=== PATIENT | female | born 1950 | race Caucasian/White ===

== ENCOUNTER 2023-01-15 07:07 | Day surgery (SDC) | payer MEDICARE, SELFPAY ==
--- NOTE | 2023-01-14 09:09 | HO.ANESPROP2 ---
HPI - Anesthesia Eval Consult details Narrative: 72yo F for Colonoscopy [facility] Past Medical History Medical History (Updated 01/13/23 @ 07:10 by Joanne Dalton, RN) Irregular heart beat Kidney stone Hyperlipidemia Cancer of breast Surgical History Surgical History (Updated 01/13/23 @ 07:11 by Joanne Dalton, RN) H/O colonoscopy History of lumpectomy of left breast Hx of thumb surgery S/P JUSTIN (total abdominal hysterectomy) History of surgery on arm Meds Allergies Allergy/AdvReac Type Severity Reaction Status Date / Time sulfamethoxazole Allergy Intermediate HIVES Unverified 12/09/19 16:07 [From Bactrim] trimethoprim [From Bactrim] Allergy Intermediate HIVES Unverified 12/09/19 16:07 amoxicillin [Amoxicillin] Allergy Mild RASH Unverified 12/09/19 16:07 Sulfa (Sulfonamide Allergy Unknown Verified 10/08/19 00:00 Antibiotics) Home Medications Medication Instructions Recorded Confirmed Last Taken Type lovastatin 20 mg tablet 20 mg PO BEDTIME 01/13/23 01/13/23 Unknown History metoprolol succinate 25 mg 25 mg PO DAILY 01/13/23 01/13/23 Unknown History tablet,extended release 24 hr Exam Exam Date and Time: January 14, 2023 0909 Assessment and Plan Assessment Anesthesia Assessment: Chart Reviewed
[2023-01-15 05:56] VITALS: BMI 25.2
[2023-01-15] MEDS: Lactated Ringers 1,000 ML 100 ML IVCONT (07:24)
[2023-01-15 07:32] VITALS: BP 151/74; PULSE 86; RESP 18; TEMP 36.6; O2SAT 100
--- NOTE | 2023-01-15 08:01 | HO.ANESPROP2 ---
[facility] Past Medical History Medical History Irregular heart beat Kidney stone Hyperlipidemia Cancer of breast Family History Family history of problems with anesthesia: No Surgical History Surgical History H/O colonoscopy History of lumpectomy of left breast Hx of thumb surgery S/P JUSTIN (total abdominal hysterectomy) History of surgery on arm History of Problems with Anesthesia: No Social History Social History Patient Tobacco Use Status: Current everyday Tobacco user Smoked in Last 30 Days: Yes Patient Interested in Nicotine Replacement: No Are you DNR?: No Advance Directives: No Advance Directives Information Provided: Yes Nutrition Risks: No Nutritional Risk Meds Allergies Allergy/AdvReac Type Severity Reaction Status Date / Time sulfamethoxazole Allergy Intermediate HIVES Verified 01/15/23 07:20 [From Bactrim] trimethoprim [From Bactrim] Allergy Intermediate HIVES Verified 01/15/23 07:20 amoxicillin [Amoxicillin] Allergy Mild RASH Verified 01/15/23 07:20 Sulfa (Sulfonamide Allergy Unknown Hives Verified 01/15/23 07:20 Antibiotics) Active Medications: Current Medications Lactated Ringer's (Lr) 1,000 mls @ 100 mls/hr IVCONT .Q10H JORGE Last Admin: 01/15/23 07:24 Dose: 100 mls/hr Ondansetron HCl (Ondansetron Hcl 4 Mg/2 Ml Vial) 4 mg IVPUSH ONCE PRN PRN Reason: Nausea and Vomiting Sodium Biphosphate/Sodium Phosphate (Sodium Phosphate,[place]-Dibasic 133 Ml Enema) 133 ml PA ONCE PRN PRN Reason: Poor Colonoscopy Prep Results Home Medications Medication Instructions Recorded Confirmed Last Taken Type lovastatin 20 mg tablet 20 mg PO BEDTIME 01/13/23 01/13/23 Unknown History metoprolol succinate 25 mg 25 mg PO DAILY 01/13/23 01/13/23 01/15/23 History tablet,extended release 24 hr Exam Exam Date and Time: January 15, 2023 08 Height,Weight and Vital Signs: Height 5 ft 4.5 in Weight 67.585 kg Last Vital Signs Temp 97.9 F 01/15/23 07:32 Pulse 86 01/15/23 07:32 Resp 18 01/15/23 07:32 BP 151/74 H 01/15/23 07:32 Pulse Ox 100 01/15/23 07:32 O2 Del Method Room Air 01/15/23 07:32 Airway Mallampati Class: II TM Dist: >3cm Neck ROM: Full Denture: Upper Heart: rrr Lungs: clear Assessment and Plan Final Anesthetic Review Family History of Problems with Anesthesia: No History of Problems with Anesthesia: No NPO: Yes ASA Class: III Final Preanesthetic Review: No Changes in Pt Med Stat, Meds/Allgs Chart Reviewed, Consent Obtained/Reviewed and Anes Risks/Benef Reviewed Patient Risk: Intermediate Procedure Risk: Low Anesthetic Plan Anesthetic Plan: MAC: Disposition: Standard PACU
[2023-01-15 08:58] VITALS: BP 135/53; PULSE 66; RESP 20; TEMP 36.1; O2SAT 98
--- NOTE | 2023-01-15 08:58 | P.BOP_ITS ---
Brief Operative Note Date of Service: 01/15/23 Pre-op diagnosis: Screening Post-op diagnosis: other (Colon polyps) Procedure: Colonoscopy to the cecum and TI with biopsy and removal of polyps Surgeon: Cesar Gould MD Anesthesia: MAC Was an Custom Protection Officer used for this Procedure?: No Estimated blood loss (mL): 2.0 Pathology: other (A. Ascending colon polyp B. Transverse colon polyp C. Polyp at 30cm) Condition: stable Disposition: PACU
--- NOTE | 2023-01-15 09:08 | OP_ITS ---
DATE OF SERVICE: 01/15/2023 SURGEON: Cesar Gould MD INDICATIONS: The patient presents for evaluation of colorectal cancer screening. Full consent obtained from her for this, including risks of bleeding and perforation. PREOPERATIVE DIAGNOSIS: Colorectal cancer screening. POSTOPERATIVE DIAGNOSIS: PROCEDURE PERFORMED: Colonoscopy to the cecum and terminal ileum with biopsy and removal of polyps. ESTIMATED BLOOD LOSS: COMPLICATIONS: ANESTHESIA: Monitored anesthesia care. ASSISTANTS: SPECIMENS: POSTOPERATIVE DIAGNOSES: Colorectal cancer screening, small colon polyps, diverticulosis, and internal hemorrhoids. DESCRIPTION OF PROCEDURE: The patient was placed in the left lateral decubitus position. The digital rectal exam revealed no abnormalities. The Olympus video pediatric colonoscope was entered into the rectum and advanced easily to the cecum. Once in the cecum, I did identify normal-appearing cecal pouch with appendiceal orifice and a normal-appearing ileocecal valve. The terminal ileum was cannulated and appeared normal. The scope was withdrawn back to the colon. The entire cecum and ileocecal valve appeared normal. The scope was slowly withdrawn assessing all mucosal surfaces carefully. Preparation was excellent. In the ascending colon, transverse colon, and at 30 cm were flat, less than 5 mm polyps, which were all biopsied and removed with the cold biopsy forceps. I did not visualize any sign of other polyps, colitis, nor angiodysplasia. There was a mild amount of sigmoid diverticulosis. In the rectum, scope was retroflexed visualizing internal hemorrhoids, but no other pathology. The rectal mucosa appeared normal. The scope was straightened and withdrawn from the patient. She tolerated the procedure well and was returned to the recovery area in stable condition. IMPRESSION: 1. Colon polyps. 2. Diverticulosis. 3. Internal hemorrhoids. PLAN: The results of the biopsy will be checked. If these are tubular adenoma, I would recommend a followup colonoscopy in 5 years. If they happen to be hyperplastic, then she would not need any further screening colonoscopies due to her age. She will see me on a p.r.n. basis otherwise. MD ELISEO Reardon/GARY / [phone]
[2023-01-15 09:13] VITALS: BP 159/68; PULSE 59; RESP 20; TEMP 36.1; O2SAT 99
== END 2023-01-15 09:42 | disposition home or self-care (01) ==
PROVIDERS: PCP Nurse Practitioner Family; Visit Provider Internal Medicine
PROC: 0DJD8ZZ Inspection of Lower Intestinal Tract, Via Natural or Artificial Opening Endoscopic (ICD-10-PCS; CPT 45378; principal; 2023-01-15 08:20)
DX: Z12.11 Encounter for screening for malignant neoplasm of colon (principal); D12.2 Benign neoplasm of ascending colon; D12.3 Benign neoplasm of transverse colon; D12.5 Benign neoplasm of sigmoid colon; K57.30 Diverticulosis of large intestine without perforation or abscess without bleeding; K64.8 Other hemorrhoids; E78.5 Hyperlipidemia, unspecified; F17.210 Nicotine dependence, cigarettes, uncomplicated; Z83.719 Family history of colon polyps, unspecified; Z87.442 Personal history of urinary calculi; Z85.3 Personal history of malignant neoplasm of breast
CPT/HCPCS: 45380; 88305

== ENCOUNTER 2023-08-09 13:30 | Emergency (ER) | payer MEDICARE, SELFPAY ==
--- NOTE | ~2023-08-09 | XR_ITS ---
EXAMINATION: XR CHEST CLINICAL INFORMATION: Chest pain. COMPARISON: Chest radiograph dated 10/14/2007. TECHNIQUE: 2 views of the chest were obtained. FINDINGS: The lungs are clear. The cardiomediastinal silhouette is normal in size. There is no pleural effusion or pneumothorax. No acute osseous abnormality. XR/XR chest 2V IMPRESSION: No acute cardiopulmonary findings.
--- NOTE | 2023-08-09 13:32 | ECG_ITS ---
Test Reason : CHEST PAIN Blood Pressure : / mmHG Vent. Rate : 097 BPM Atrial Rate : 099 BPM P-R Int : 140 ms QRS Dur : 076 ms QT Int : 340 ms P-R-T Axes : 071 014 039 degrees QTc Int : 431 ms Normal sinus rhythm Nonspecific ST and T wave abnormality Abnormal ECG When compared with ECG of 12-MAY-2008 16:44, No significant change was found Referred By: Xiomara Aguilera Electronically Signed By:LEONARD VASQUEZ MD
[2023-08-09 13:46] VITALS: BP 155/63; PULSE 99; RESP 19; TEMP 36.6; O2SAT 98; BMI 25.0
--- NOTE | 2023-08-09 13:47 | ED_ITS ---
HPI - Chest Pain General Chief Complaint: Chest Pain Stated Complaint: chest pain Time Seen by Provider: 08/09/23 20:50 Source: patient Mode of arrival: ambulatory Limitations: no limitations History of Present Illness HPI narrative: Patient's history of hyperlipidemia and hypertension been having mid chest pain for last 3 weeks feels heavy lasting for 20-30 minutes with sometimes cold sweats and nausea no radiation of the pain no shortness of breath last chest pain was today at afternoon also complaining of headache chest pain gets worse on exertion is happening more often now no cardiac workup done in the past patient had troponin and EKG done prior to my evaluation 2 sets of troponin negative for delta change EKG without any ischemic change Related Data Home Medications ?Medication ?Instructions ?Recorded ?Confirmed lovastatin 20 mg tablet 20 mg PO BEDTIME 01/13/23 01/13/23 metoprolol succinate 25 mg 25 mg PO DAILY 01/13/23 01/13/23 tablet,extended release 24 hr Previous Rx's ?Medication ?Instructions ?Recorded aspirin 81 mg tablet,delayed 81 mg PO DAILY #30 tabs 08/09/23 release (Ecotrin Low Strength) Allergies Allergy/AdvReac Type Severity Reaction Status Date / Time sulfamethoxazole Allergy Intermediate HIVES Verified 08/09/23 13:47 [From Bactrim] trimethoprim [From Bactrim] Allergy Intermediate HIVES Verified 08/09/23 13:47 amoxicillin [Amoxicillin] Allergy Mild RASH Verified 08/09/23 13:47 Sulfa (Sulfonamide Allergy Unknown Hives Verified 08/09/23 13:47 Antibiotics) Review of Systems 2 Review of Systems: Yes all other systems are reviewed and are negative PMFSH Past Medical History Medical History Irregular heart beat Kidney stone Hyperlipidemia Cancer of breast Surgical History H/O colonoscopy History of lumpectomy of left breast Hx of thumb surgery S/P JUSTIN (total abdominal hysterectomy) History of surgery on arm Social History Social History Patient Tobacco Use Status: Current everyday Tobacco user Advance Directives: No Advance Directives Information Provided: No Physical Exam 2 Vital Signs: Vital Signs: Last Vital Signs Temp 98.3 F 08/09/23 23:23 Pulse 74 08/09/23 23:23 Resp 14 08/09/23 23:23 BP 130/44 L 08/09/23 23:23 Pulse Ox 96 08/09/23 23:23 O2 Del Method Room Air 08/09/23 23:23 BMI result Body Mass Index 25.0 Appearance: Alert. Oriented X3. No acute distress. Eyes: No pallor or icterus ENT: Pharynx normal. Oral Mucosa moist Neck: Normal inspection. Neck supple. CVS: Normal heart rate and rhythm. Pulses normal. Respiratory: No respiratory distress. Equal air entry bilateral, no wheezing/rales/rhonchi Abdomen: Soft and nontender. Bowel sounds are present, no mass palpable, no CVA tenderness Skin: Skin warm and dry. Normal skin color. Normal skin turgor. Extremities: No lower extremity edema. No calf tenderness Neuro: Oriented X 3. Course Course Course Narrative: This is a rapid medical exam. Deferred additional HPI, ROS, PE to primary provider. 73 yo female with history of HTN, HLD here with exertional CP x several weeks. Will need labs, EKG, CXR. VINH Zafar APRN Medications Administered Discontinued Medications Generic Name Dose Route Start Last Admin Trade Name Freq PRN Reason Stop Dose Admin Aspirin 162 mg 08/09/23 22:37 08/09/23 23:11 Aspirin Enteric Coated 81 Mg Tablet.Dr DEL CID 08/09/23 22:38 162 mg ONCE ONE Administration Medical Decision Making Medical Decision Making [facility] Narrative: Patient with chest pain for 3 weeks with 3 sets of cardiac enzymes negative without any ischemic changes in the EKG no hypoxia nose signs of PE likely patient had nonischemic cardiac pain advised patient to follow up with PCP/tennis racket repairer for further workup including stress test and echo Differential Diagnosis Differential Diagnoses: The differential diagnosis associated with the presentation includes ACS/non-STEMI/musculoskeletal Admission/Observation Consideration of admission/observation: Escalation of care including admission/observation considered Lab Data [facility] Lab Attestation statement: I reviewed the patient's lab results. 08/09/23 13:56 08/09/23 13:55 Labs: Lab Results 08/09/23 08/09/23 08/09/23 Range/Units 13:55 13:56 16:16 WBC 8.1 (4.8-10.8) X10*3/uL RBC 3.96 L (4.20-5.50) X10*6/uL Hgb 12.0 (12.0-16.0) g/dl Hct 35.8 L (37.0-47.0) % MCV 90.4 (80.0-98.0) fL MCH 30.3 (27.0-33.0) pg MCHC 33.5 (31.0-35.0) g/dl RDW 13.0 (11.0-16.0) % Plt Count 303 (160-400) X10*3/uL MPV 9.4 (9.4-12.3) fL Immature Gran % (Auto) 1.7 H (0.0-0.4) % Neut % (Auto) 71.5 (45-73) % Lymph % (Auto) 16.0 L (20-40) % [place] % (Auto) 9.5 (2-11) % Eos % (Auto) 0.9 (0-4) % Baso % (Auto) 0.4 (0-2) % Lymph # (Auto) 1.3 (1.2-4.9) X10*3/uL [place] # (Auto) 0.8 (0.1-1.2) X10*3/uL Eos # (Auto) 0.1 (0.0-0.4) X10*3/uL Baso # (Auto) 0.0 (0.0-0.2) X10*3/uL Abs Immat Gran (auto) 0.14 H (0.00-0.03) X10*3/uL Absolute Neuts (auto) 5.8 (2.0-8.3) x10*3/uL Absolute Nucleated RBC 0.000 (0.0-0.012) X10*3/uL Nucleated RBC % (auto) 0.0 (0.0-0.2) /100WBC Sodium 137 (135-145) mmol/L Potassium 4.3 (3.3-5.1) mmol/L Chloride 98 (96-108) mmol/L Carbon Dioxide 28 (22-29) mmol/L Anion Gap 15 (12-20) BUN 20 H (9-16) mg/dL Creatinine 1.01 (0.5-1.4) mg/dL Estim Creat Clear Calc 45.9 Estimated GFR 54 Random Glucose 206 H (60-115) mg/dL Calcium 10.6 H (8.4-10.2) mg/dL Total Bilirubin 0.3 (0.0-1.0) mg/dL Direct Bilirubin 0.1 (0.0-0.5) mg/dL AST 38 H (5-31) U/L ALT 22 (0-31) U/L Alkaline Phosphatase 142 H (39-117) U/L Troponin I High Sens 3.2 4.3 (<3.5-17.0) ng/L Total Protein 7.3 (6.5-8.0) g/dL Albumin 3.9 (3.5-5.0) g/dL 08/09/23 Range/Units 21:57 WBC (4.8-10.8) X10*3/uL RBC (4.20-5.50) X10*6/uL Hgb (12.0-16.0) g/dl Hct (37.0-47.0) % MCV (80.0-98.0) fL MCH (27.0-33.0) pg MCHC (31.0-35.0) g/dl RDW (11.0-16.0) % Plt Count (160-400) X10*3/uL MPV (9.4-12.3) fL Immature Gran % (Auto) (0.0-0.4) % Neut % (Auto) (45-73) % Lymph % (Auto) (20-40) % [place] % (Auto) (2-11) % Eos % (Auto) (0-4) % Baso % (Auto) (0-2) % Lymph # (Auto) (1.2-4.9) X10*3/uL [place] # (Auto) (0.1-1.2) X10*3/uL Eos # (Auto) (0.0-0.4) X10*3/uL Baso # (Auto) (0.0-0.2) X10*3/uL Abs Immat Gran (auto) (0.00-0.03) X10*3/uL Absolute Neuts (auto) (2.0-8.3) x10*3/uL Absolute Nucleated RBC (0.0-0.012) X10*3/uL Nucleated RBC % (auto) (0.0-0.2) /100WBC Sodium (135-145) mmol/L Potassium (3.3-5.1) mmol/L Chloride (96-108) mmol/L Carbon Dioxide (22-29) mmol/L Anion Gap (12-20) BUN (9-16) mg/dL Creatinine (0.5-1.4) mg/dL Estim Creat Clear Calc Estimated GFR Random Glucose (60-115) mg/dL Calcium (8.4-10.2) mg/dL Total Bilirubin (0.0-1.0) mg/dL Direct Bilirubin (0.0-0.5) mg/dL AST (5-31) U/L ALT (0-31) U/L Alkaline Phosphatase (39-117) U/L Troponin I High Sens 3.0 (<3.5-17.0) ng/L Total Protein (6.5-8.0) g/dL Albumin (3.5-5.0) g/dL Independent Interpretation I performed an independent interpretation of an: EKG Interpretation: Normal sinus rhythm heart rate 97 normal interval normal axis no acute ST-T changes no change from previous EKG in 2008 Discharge Plan Discharge Clinical Impression: Chest pain Patient Disposition: Home, Self-Care Instructions: Chest Pain (ED) Additional Instructions: Take baby aspirin daily Follow up with PCP/tennis racket repairer for further workup including stress test Report to the ER if worsening of the chest pain Prescriptions: New aspirin [Ecotrin Low Strength] 81 mg tablet,delayed release (DR/EC) 81 mg PO DAILY Qty: 30 0RF No Action metoprolol succinate 25 mg tablet extended release 24 hr 25 mg PO DAILY lovastatin 20 mg tablet 20 mg PO BEDTIME Interventions: ED Discharge Assessment Last Done: 08/09/23 23:23 Discharge Date/Time: 08/09/23 23:24 Print Language: German
[2023-08-09 14:02] LABS: Basophils Percent Auto 0.4 % (0-2); Eosinophils Absolute Auto 0.1 X10*3/uL (0.0-0.4); Eosinophils Percent Auto 0.9 % (0-4); Hematocrit 35.8 % (37.0-47.0); Imm Gran Abs Auto 0.14 X10*3/uL (0.00-0.03); Imm Gran Pct Auto 1.7 % (0.0-0.4); Lymphocytes Absolute Auto 1.3 X10*3/uL (1.2-4.9); MANUAL DIFF FLAG NO; Mean Corpuscular HGB Conc 33.5 g/dl (31.0-35.0); Mean Corpuscular Hemoglobin 30.3 pg (27.0-33.0); Mean Corpuscular Volume 90.4 fL (80.0-98.0); Mean Platelet Volume 9.4 fL (9.4-12.3); Monocytes Absolute Auto 0.8 X10*3/uL (0.1-1.2); Monocytes Percent Auto 9.5 % (2-11); Neutrophils Absolute Auto 5.8 x10*3/uL (2.0-8.3); Neutrophils Percent Auto 71.5 % (45-73); Platelet Count 303 X10*3/uL (160-400); Red Blood Count 3.96 X10*6/uL (4.20-5.50); White Blood Count 8.1 X10*3/uL (4.8-10.8)
[2023-08-09 14:26] LABS: Troponin-I High Sensitivity 3.2 ng/L (<3.5-17.0)
[2023-08-09 14:27] LABS: Alanine Aminotransferase 22 U/L (0-31); Albumin Level 3.9 g/dL (3.5-5.0); Alkaline Phosphatase 142 U/L (39-117); Anion Gap 15 (12-20); Aspartate Amino Transferase 38 U/L (5-31); Bilirubin Direct 0.1 mg/dL (0.0-0.5); Bilirubin Total 0.3 mg/dL (0.0-1.0); Blood Urea Nitrogen 20 mg/dL (9-16); Calcium 10.6 mg/dL (8.4-10.2); Carbon Dioxide 28 mmol/L (22-29); Chloride 98 mmol/L (96-108); Creatinine Clr Calc Pharmacy 45.9; Estimated Glomerular Filt Rate 54; Glucose Random 206 mg/dL (60-115); Potassium 4.3 mmol/L (3.3-5.1); Sodium 137 mmol/L (135-145); Total Protein 7.3 g/dL (6.5-8.0)
[2023-08-09 16:43] LABS: Troponin-I High Sensitivity 4.3 ng/L (<3.5-17.0)
[2023-08-09 18:34] VITALS: BP 140/53; PULSE 85; RESP 20; TEMP 37.2; O2SAT 96
[2023-08-09 20:38] VITALS: BP 157/61; PULSE 76; RESP 14; TEMP 36.7; O2SAT 98
--- NOTE | 2023-08-09 21:46 | ECG_ITS ---
Test Reason : cp Blood Pressure : / mmHG Vent. Rate : 075 BPM Atrial Rate : 075 BPM P-R Int : 134 ms QRS Dur : 074 ms QT Int : 374 ms P-R-T Axes : -04 009 -02 degrees QTc Int : 417 ms Sinus rhythm with Premature atrial complexes Nonspecific ST abnormality Abnormal ECG When compared with ECG of 09-AUG-2023 13:37, Premature atrial complexes are now Present Inverted T waves have replaced nonspecific T wave abnormality in Inferior leads Referred By: Arturo Ritchie Electronically Signed By:LEONARD VASQUEZ MD
[2023-08-09 22:45] VITALS: BP 130/49; PULSE 74; RESP 14; TEMP 36.8; O2SAT 96
[2023-08-09] MEDS: Aspirin Enteric Coated 81 MG TABLET.DR 162 MG PO (23:11)
[2023-08-09 23:23] VITALS: BP 130/44; PULSE 74; RESP 14; TEMP 36.8; O2SAT 96
== END 2023-08-09 23:24 | disposition home or self-care (01) ==
PROVIDERS: Nurse Practitioner Family; Emergency Provider Internal Medicine; PCP Internal Medicine
DX: R07.9 Chest pain, unspecified (principal); R11.0 Nausea; R61 Generalized hyperhidrosis; I49.9 Cardiac arrhythmia, unspecified
CPT/HCPCS: 36415; 71046; 80048; 80076; 84484; 85025; 93005; 99283; 99284

== ENCOUNTER → 2023-08-09 13:32 | Outpatient (BNV) | payer MEDICARE, SELFPAY | PROVIDERS: Emergency Provider Internal Medicine; PCP Internal Medicine; Visit Provider Internal Medicine Cardiovascular Disease | DX: R94.31 Abnormal electrocardiogram [ECG] [EKG] (principal); I49.3 Ventricular premature depolarization | CPT/HCPCS: 93010 ==

== ENCOUNTER 2023-08-19 09:11 | Outpatient (AMB) | payer MEDICARE, SELFPAY ==
[2023-08-19 09:32] VITALS: BP 140/64; BMI 24.7
--- NOTE | 2023-08-19 09:32 | A.OFFPC_ITS ---
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: No Accompanied by: Self / Same As Patient Allergies sulfamethoxazole [From Bactrim] Allergy (Intermediate, Verified 08/19/23 09:47) HIVES trimethoprim [From Bactrim] Allergy (Intermediate, Verified 08/19/23 09:47) HIVES amoxicillin [Amoxicillin] Allergy (Mild, Verified 08/19/23 09:47) RASH Sulfa (Sulfonamide Antibiotics) Allergy (Unknown, Verified 08/19/23 09:47) Hives Medication List - Last Reconciled 08/19/23 by Li Whitehead MD aspirin (Ecotrin Low Strength) 81 mg PO DAILY lovastatin 20 mg PO BEDTIME metoprolol succinate ER 50 mg PO DAILY Tobacco use date assessed: 08/19/23 Fall risk assessment: No Falls in past year Last assessed Fall Risk: 08/19/23 Dental Screening Dental Screen Date: 08/19/23 Did you have a dental visit in the last 12 months?: Yes Did you have a dental problem in the last 6 months where you did not have access to dental care?: No Was dental information given to patient?: Patient has dentist HPI HPI Comments History of Present Illness Details This is a 73-year-old female with history of breast cancer and newly diagnosed diabetes mellitus type 2 that comes for her physical exam as a new patient. Breast cancer was diagnosed in 1997 and was treated with lumpectomy and radiotherapy completing 5 years of tamoxifen. Last mammogram was 2023 in [place] and was negative. DEXA scan was done last year and as per patient was normal. She has occasional chest pain located in the middle of the chest and left side of the chest associated with some shortness of breath. Went to ER 08/09/2023 for this matter and had an EKG and chest x-ray which did not show any significant abnormality. Random blood glucose was 206 and she denies any polyuria or unintentional weight loss but does have polydipsia. Her A1c today was 6.9% which rules in the diagnosis of diabetes. Patient is aware that has to check her fasting blood glucose daily. Aware that I will start metformin and can cause abdominal discomfort and diarrhea. She had an eye exam in June 2023 which was normal. Colonoscopy done 2022 showing tubular adenoma and next colonoscopy will be 2027. Had a muscle cramps recently in right leg and I order magnesium. She has a systolic murmur and I wanted to order an echocardiogram but she preferred to discuss it with Cardiology. She also complains of persistent headaches that started few weeks ago with no neurological deficit and would like to see Neurology. [facility] Medical History (Updated 08/19/23 @ 10:19 by Li Whitehead MD) Irregular heart beat Kidney stone Hyperlipidemia Cancer of breast Surgical History H/O colonoscopy History of lumpectomy of left breast Hx of thumb surgery S/P JUSTIN (total abdominal hysterectomy) History of surgery on arm Family History (Updated 08/19/23 @ 09:53 by Li Whitehead MD) Mother Tuberculosis Brother Myocardial infarction, Onset Age: 55 Skin cancer Father Skin cancer Social History Housing: House Alcohol intake: never Patient Tobacco Use Status: Current everyday Tobacco user Tobacco use type: Cigarette Cigarettes Per Day: 3 e-Cigarette/Vaping Use: Never Used Second Hand Smoke Exposure: No service: No Current occupational status: retired Cognitive needs: No Hearing needs: No Vision needs: Yes Questionnaire PHQ-9 Over the last 2 weeks, how often have you been bothered by any of the following problems? 1. Little interest or pleasure in doing things: not at all 2. Feeling down, depressed, or hopeless: not at all 3. Trouble falling or staying asleep, or sleeping too much: not at all 4. Feeling tired or having little energy: not at all 5. Poor appetite or overeating: not at all 6. Feeling bad about yourself - or that you are a failure or have let yourself or your family down: not at all 7. Trouble concentrating on things, such as reading the newspaper or watching television: not at all 8. Moving or speaking so slowly that other people could have noticed. Or the opposite - being so fidgety or restless that you have been moving around a lot more than usual: not at all 9. Thoughts that you would be better off or of hurting yourself in some way: not at all Total score: 0 Depression Screening Interpretation: Negative Depression Screening Done: Yes 30164 - PHQ-9 Billing: Yes Source: Developed by Drs. Cesar Cr, Farrah Manuel, Lj Carlton and colleagues, with an educational ashley from [employer]. Thrive Questionnaire Date Thrive assessed: 08/19/23 I am a: Patient What is your living situation today?: I have a steady place to live Within the past 12 months, did the food you bought not last and you didn't have the money to get more?: Never true Within the past 12 months, did you worry whether your food would run out before you got money to buy more?: Never true Do you have trouble paying for medicines?: No Do you have trouble getting transportation to medical appointments?: No Do you have trouble paying your heating and electricity bill?: No Do you have trouble taking care of your child, family member or friend?: No Do you have trouble with day-to-day activities such as bathing, preparing meals, shopping, managing finances, etc.?: No Are you currently unemployed and looking for a job?: No Are you interested in more education?: No Please select the resources that you would like help with: None Currently or been in a relationship where the following occur: no concerns reported THRIVE Score: 0 AUDIT C Alcohol Use Questionnaire (AUDIT-C) 1. How often do you have a drink containing alcohol?: Never Total Score: 0 CHUCK-7 AMB Questionnaire CHUCK-7 Date CHUCK - 7 assessed: 08/19/23 Feeling nervous, anxious, or on edge: 0 = Not at all Not being able to stop or control worryin = Not at all Worrying too much about different things: 0 = Not at all Trouble relaxin = Not at all Being so restless that it is hard to sit still: 0 = Not at all Becoming easily annoyed or irritable: 0 = Not at all Feeling afraid as if something awful might happen: 0 = Not at all Total CHUCK-7 score (0-4 normal; 5-9 mild; 10-14 moderate; 15-21 severe): 0 Source: Developed by Drs. Cesar Cr, Farrah Manuel, Lj Carlton and colleagues, with an educational ashley from [employer]. CHUCK-7 Assessment Billing CHUCK-7 Assessment Tool: CHUCK-7 Assessment 82169 Review of Systems Const All systems reviewed & are unremarkable except as noted in HPI and below Reports headache(s) Eyes Reports no additional complaints, Denies change in vision and Denies other visual disturbances ENT Reports headache(s) Card Reports chest pain at rest, Denies chest pain with activity, Denies edema, Denies irregular heart rhythm, Denies claudication, Reports dyspnea, Denies dyspnea on exertion, Denies orthopnea, Denies paroxysmal nocturnal dyspnea and Denies slow heart rate Resp Denies cough, Reports dyspnea and Denies dyspnea on exertion GI Denies abdominal pain, Denies change in bowel habits, Denies excessive flatus, Denies nausea and Denies vomiting Denies urinary incontinence, Denies urinary hesitancy and Denies urinary urgency Musc Denies abnormal gait, Denies atrophy, Denies deformity and Denies limited range of motion Neuro Denies abnormal gait, Reports headache(s) and Denies lack of coordination Endo Reports polydipsia Physical exam (Primary Care) Vital Signs: Last Vital Signs BP 140/64 H 08/19/23 09:32 BMI result Body Mass Index 24.7 Tobacco/Smoking Status: Tobacco use Status Tobacco use date assessed 08/19/23 08/19/23 09:38 Patient Tobacco Use Status Current everyday Tobacco 08/19/23 09:36 Tobacco use type Cigarette 08/19/23 09:38 e-Cigarette/Vaping Use Never Used 08/19/23 09:38 Are you ready to quit: Yes Tobacco cessation counseling provided: Yes Items discussed: QuitWorks Relapse Prevention: discussed the importance of a supportive environment, discussed extending NRT, discussed negative mood or depression after quitting, weight gain after smoking is common and discussed dietary, exercise and/or lifestyle changes Number of minutes spent counselin CPT code: 38274 - 4-10 Minutes PHQ-9: PHQ-9 Score PHQ-9: Total score 0 08/19/23 09:56 Depression Screening Interpretation: Negative Thrive Assessment: Date of Thrive Assessment Date Thrive assessed 08/19/23 08/19/23 09:38 Currently or been in a relationship where the following occur: no concerns reported Const General: cooperative and healthy appearing Orientation/consciousness: patient oriented x3 Limitations: no limitations HENMT Head: Yes normal to inspection, Yes normocephalic and Yes atraumatic Ears: external ears normal Eyes General: appearance normal, both eyes and all related structures Eyelids: Yes eyelids normal Conjunctivae: conjunctivae normal Neck Neck: Yes normal visual inspection and Yes supple Resp Effort & Inspection: normal respiratory effort Auscultation: clear to auscultation bilaterally Cardio Jugular venous distension: no JVD Rate: regular rate Rhythm: regular rhythm Heart sounds: Murmur heart sound present GI Inspection: Yes normal to inspection Palpation (GI): Soft to palpation and nontender Auscultation: normal bowel sounds Skin General skin exam: no rashes or lesions noted Neuro General: patient oriented x3 and no focal motor deficits Extrem General: Yes full ROM Psych Appearance: grossly normal Results AMB Hemoglobin A1c AMB Hemoglobin A1c 6.9 % Last Edit by GILBERTO Redding on 08/19/23 10:0 3 Assessment and Plan Assessment & Plan (1) Physical exam: Code(s): Z00.00 - Encounter for general adult medical examination without abnormal findings Plan: Repeat in a year. (2) Type 2 diabetes mellitus with hyperglycemia, without long-term current use of insulin: Code(s): E11.65 - Type 2 diabetes mellitus with hyperglycemia Plan: Start metformin. A1c goal is equal or less than 7%. (3) Cancer of breast: Comment: 1997 Code(s): C50.919 - Malignant neoplasm of unspecified site of unspecified female breast Plan: Do yearly mammograms. Orders: Orders Lipid Panel Today E11.65 - Type 2 diabetes mellitus with hyperglycemia, E78.5 - Hyperlipidemia, unspecified Microalbumin, Random (w Creat) Today E11.65 - Type 2 diabetes mellitus with hy perglycemia, E11.9 - Type 2 diabetes mellitus without complications Comprehensive [place]. Panel Fast Today E11.65 - Type 2 diabetes mellitus with hyperglycemia Magnesium Today R25.2 - Cramp and spasm AMB Hemoglobin A1c Today R73.09 - Other abnormal glucose Referrals Neurology Referral R51.9 - Headache, unspecified Medications: New metformin 500 mg PO BID 90 days 180 tabs 1RF E11.65 - Type 2 diabetes mellitus with hyperglycemia blood sugar diagnostic (FreeStyle Lite Strips) Use 1 test strip once a day 100 ea 3RF E11.65 - Type 2 diabetes mellitus with hyperglycemia blood-glucose meter (FreeStyle Lite Meter kit) As directed 1 ea 0RF E11.65 - Type 2 diabetes mellitus with hyperglycemia lancets (FreeStyle Lancets) Use 1 lancet once a day 100 ea 3RF E11.65 - Type 2 diabetes mellitus with hyperglycemia Coding Level of Care Code New Pt Prev Care >65yr (94236) Diagnoses Physical exam Z00.00 Type 2 diabetes mellitus with hyperglycemia, without long-term current use of insulin E11.65 Cancer of breast C50.919 Additional Codes CHUCK-7 Assessment Billing - CHUCK-7 Assessment Tool: CHUCK-7 Assessment 02788 ([id number]) Vital Signs *Quality* - CPT code: 39100 - 4-10 Minutes ([id number]) Time Spent (min) 40
[2023-08-19 10:17] VITALS: BP 135/70
== END 2023-08-19 10:12 | disposition home or self-care (01) ==
PROVIDERS: PCP Internal Medicine; Visit Provider Internal Medicine
DX: Z00.00 Encounter for general adult medical examination without abnormal findings (principal); E11.65 Type 2 diabetes mellitus with hyperglycemia; C50.919 Malignant neoplasm of unspecified site of unspecified female breast; R73.09 Other abnormal glucose; F17.210 Nicotine dependence, cigarettes, uncomplicated
CPT/HCPCS: 83036; 99387; 99406

== ENCOUNTER 2023-08-31 01:39 | Inpatient (IN) | payer MEDICARE, SELFPAY ==
[2023-08-31] VITALS (11 sets, daily range): BP systolic 110–173; BP diastolic 48–80; PULSE 98–122; RESP 19–30; TEMP 36.6–37.5; O2SAT 87–98; BMI 24.4
--- NOTE | 2023-08-31 | ECG_ITS ---
Test Reason : CP Blood Pressure : / mmHG Vent. Rate : 108 BPM Atrial Rate : 108 BPM P-R Int : 134 ms QRS Dur : 072 ms QT Int : 304 ms P-R-T Axes : 079 017 005 degrees QTc Int : [address] & T wave abnormality, consider inferior ischemia and lateral ischemia Abnormal ECG When compared with ECG of 31-AUG-2023 01:46, No significant changes seen Referred By: Robert Frazier Electronically Signed By:RAFAEL PASTOR
--- NOTE | ~2023-08-31 | CT_ITS ---
EXAMINATION: CT ABDOMEN AND PELVIS WITH CONTRAST CLINICAL INFORMATION: Anorexia, abnormal liver function test COMPARISON: CT scan of abdomen and pelvis on 05/09/2009 TECHNIQUE: Multidetector volumetric images were obtained from the superior aspect of the liver through the pubic symphysis following administration 85 mL of Omnipaque 350 intravenous contrast. Sagittal and coronal reformatted images were obtained on the technologist's workstation. Oral contrast: No This CT examination was performed using dose optimization techniques as appropriate, variously including the following: *Automated exposure control *Adjustment of mA and/or kV according to patient size (this includes techniques or standardized protocols for targeted exams where dose is matched to indication/reason for exam; i.e. extremities or head) *Use of iterative reconstruction technique DLP: 474 mGy-cm FINDINGS: LUNG BASES: Wedge-shaped airspace disease with air bronchograms is seen in the right lower lobe contiguous with crescent-shaped dependent atelectasis along the posterior pleural border. LIVER: No focal lesion is seen in the liver. GALLBLADDER AND BILIARY TREE: Gallbladder appears unremarkable without calcified stones. Common bile duct is not dilated. SPLEEN: The spleen is normal in size without focal lesion. PANCREAS: The pancreas appears unremarkable. ADRENAL GLANDS: Adrenal glands are normal in size without focal lesion bilaterally. KIDNEYS: Bilateral kidneys are normal in size, showing markedly mottled nephrogram with numerous irregular hypoenhancement. Posterior medial superior left renal cortical simple cyst is seen measuring 1.4 cm in diameter, mean attenuation of 5 Hounsfield units, for which no follow up imaging is recommended. Multiple left renal calculi are seen, with the largest calculus found in left upper renal pole measuring 0.5 cm in diameter, unchanged. BOWELS: There is no abnormal dilatation of the large and small bowel loops. RETROPERITONEUM: No abnormally enlarged retroperitoneal lymph nodes, mass or hematoma could be seen. BLOOD VESSELS: Abdominal aorta is normal in size with circumferential atherosclerotic calcifications and smoothly patent. ABDOMINAL WALL: A tiny umbilical hernia containing mesenteric fat is seen. PERITONEUM: There was no ascites. There were no abdominal peritoneal inflammatory changes seen. No free peritoneal air was seen. No abnormally enlarged mesenteric lymph nodes are found. BONES: Advanced L3-L4 to L5-S1 degenerative lumbar disc disease with vacuum disc phenomenon is seen. No fracture or dislocation. No focal bone lesion diagnostic of metastatic disease could be seen in the lumbar region. EXAMINATION: CT pelvis. FINDINGS: URINARY BLADDER: Urinary bladder fills normally with urine. BOWELS: There is mild fecal distention of the lower ascending colon and cecum. Appendix cannot be identified. GENITAL ORGANS: No adnexal mass lesion could be seen. Left adnexal calcifications are seen measuring up to 0.7 cm in diameter. The uterus is not visualized. LYMPH NODES: No abnormally enlarged iliac or inguinal lymph nodes are seen. PERITONEUM: No inflammatory changes, ascites or free peritoneal air are found in the pelvis. BONES: No fracture or dislocation. No focal bone lesion diagnostic of metastatic disease could be seen in the pelvis. CT/CT abdomen pelvis w IV con IMPRESSION: 1. Interval development of Wedge-shaped airspace disease with air bronchograms in the right lower lobe contiguous with crescent-shaped dependent atelectasis along the posterior pleural border. 2. The current contrast enhanced examination shows Markedly mottled nephrogram with numerous irregular hypoenhancement in bilateral kidneys. Differential diagnosis include parenchymal renal disease or multifocal pyelonephritis. 3. Interval increase in size and number of Multiple left renal calculi. Unchanged superior medial left upper renal pole simple cyst, for which no follow up imaging is recommended. 4. Unchanged status post hysterectomy. Fleischner guidelines were followed.
--- NOTE | ~2023-08-31 | XR_ITS ---
EXAMINATION: XR CHEST CLINICAL INFORMATION: Chest pain COMPARISON: 05/11/2023 TECHNIQUE: Frontal view of the chest was obtained. FINDINGS: Lung volumes are symmetric. No focal consolidation is seen. There is suggestion of mild central peribronchial thickening. No evidence of pneumothorax, pleural effusion, or pulmonary edema. Cardiac size is within normal limits. Calcification is present at the aortic arch. No acute osseous findings are seen. XR/XR chest 1V IMPRESSION: No focal consolidation. Suggestion of mild central peribronchial thickening which may reflect airways disease.
--- NOTE | ~2023-08-31 | US_ITS ---
Ultrasound-guided liver biopsy History: Elevated LFTs. Pancytopenia Procedure: Ultrasound-guided liver biopsy Risks and benefits and possible complications were discussed with the patient and consent form was signed. The abdomen was prepped and draped in usual sterile fashion. 1% lidocaine was used for anesthesia. A 17-gauge coaxial needle was inserted through the skin and soft tissues and into the left lobe of the liver. A total of 3, 18-gauge cores were performed. Permanent ultrasound images were archived. 3 Gelfoam torpedoes were inserted through the coaxial needle and administered into the biopsy tract and at the level of the capsule. The needle was then removed. The specimens were placed in formalin and sent to pathology. The patient tolerated the procedure well. The procedure was performed a dedicated nurse for monitoring of vital signs. The patient received a total of 25 mcg Fentanyl. This procedure was performed by Srinivas Main PA-C, and directly supervised by Dr. Unger. US/US biopsy liver Impression: Ultrasound-guided liver biopsy
--- NOTE | ~2023-08-31 | CT_ITS ---
EXAMINATION: CT head/brain wo IV con CLINICAL INFORMATION: Reason for Exam syncope, severe fortune COMPARISON: Brain MRI 06/08/2021. TECHNIQUE: Contiguous axial imaging was performed from the skull base to vertex without intravenous contrast. Sagittal and coronal reformatted images were obtained. This CT examination was performed using dose optimization techniques as appropriate, variously including the following: * Automated exposure control * Adjustment of mA and/or kV according to patient size (this includes techniques or standardized protocols for targeted exams where dose is matched to indication/reason for exam; i.e. extremities or head) Use of iterative reconstruction technique DLP: 593 mGy-cm FINDINGS: No acute osseous or soft tissue abnormality. The mastoid air cells and visualized portions of the paranasal sinuses are well aerated. There is no evidence of acute intracranial hemorrhage or territorial infarction. No abnormal mass effect or midline shift is seen. Fernandez to white matter differentiation is well preserved. No extra-axial fluid collections are identified. No hydrocephalus. No significant volume loss. Patchy periventricular and deep white matter hypoattenuation is consistent with mild small vessel ischemic changes. CT/CT head/brain wo IV con IMPRESSION: No acute intracranial abnormality including hemorrhage, mass effect, hydrocephalus, or acute territorial edematous infarction.
--- NOTE | ~2023-08-31 | MR_ITS ---
EXAMINATION: MR ABDOMEN WITHOUT AND WITH CONTRAST CLINICAL INFORMATION: 73-year-old female with history of abnormal liver function tests. Evaluate for liver and pancreatic malignancy. COMPARISON: Abdomen CT from 09/02/2023. TECHNIQUE: MR abdomen was performed without and with use of 6 mL intravenous Gadavist contrast. Postcontrast images are performed in multiphase dynamic sequences. Imaging was performed in 3 planes. FINDINGS: LUNG BASES: Linear, platelike opacity of atelectasis in right lower lobe. LIVER: Liver has normal size, contour and parenchymal signal. No evidence of liver mass, cirrhotic morphology or steatosis. GALLBLADDER AND BILIARY TREE: Gallbladder is underdistended. There is focal cystlike signal change in the wall of the gallbladder fundus consistent with focal adenomyomatosis. No intrahepatic or extra hepatic ductal dilatation. PANCREAS: Normal. No edema, pancreatic ductal dilatation or mass. SPLEEN: Normal. ADRENAL GLANDS: Normal. KIDNEYS: Kidneys are normal in size and enhance symmetrically. No evidence of hydronephrosis, perinephric edema or perinephric fluid collection. 1 cm simple cortical cyst of the left upper pole. No renal imaging follow-up is recommended for simple cysts. Both renal cortices have a heterogeneous appearance on the postcontrast images resulting in a patchy bilateral nephrogram which is of uncertain cause. Due to lack of perirenal edema, this is unlikely to be due to an acute infectious disease process. BOWEL AND PERITONEUM: Stomach is unremarkable. No dilated loops of bowel. No bowel wall thickening or mesenteric fat stranding. No abdominal free fluid. VASCULATURE: Atherosclerotic abdominal aorta is normal in caliber. Inferior vena cava is normal. LYMPH NODES: No pathologic sized lymph nodes in the abdomen. SKELETAL: Multilevel degenerative arthropathy of the visualized thoracolumbar spine. No acute or suspicious osseous abnormality. MR/MR abdomen wo/w con IMPRESSION: * No evidence of pancreatic or hepatic malignancy. * No abdominal mass or lymphadenopathy. * Gallbladder is underdistended. There appears to be focal adenomyomatosis of the gallbladder fundus. * The observation of patchy, heterogeneous signal intensity of both renal cortices requires clinical and laboratory correlation. This could be a manifestation of inflammation/nephritis. The lack of any appreciable perinephric edema or perinephric fluid collection suggests that it is unlikely that the patient has infectious pyelonephritis. Correlation with urinalysis and urine culture may be helpful.
--- NOTE | ~2023-08-31 | US_ITS ---
EXAMINATION: US ABDOMEN COMPLETE US DUPLEX ARTERIAL AND VENOUS ABDOMEN CLINICAL INFORMATION: Rising liver function tests. Evaluate for portal vein thrombosis. COMPARISON: Abdomen MRI from 09/03/2023. Abdomen CT from 09/02/2023. TECHNIQUE: Real-time imaging of the abdominal viscera. Also, duplex Doppler imaging of hepatic artery, portal and hepatic veins is performed. FINDINGS: PANCREAS: Normal. ABDOMINAL AORTA: There is atherosclerotic calcification of the aorta. The proximal, mid, and distal segments are normal in caliber. INFERIOR VENA CAVA: Visualized portions are normal. LIVER: Liver has normal size, contour and parenchymal echotexture. No evidence of focal lesion or intrahepatic ductal dilatation. GALLBLADDER: Gallbladder contains sludge. No calculi. There is an edematous appearance of the gallbladder wall at its interface with the liver. This is a nonspecific finding but might be seen in the setting of hepatitis. COMMON BILE DUCT: Normal in caliber, 0.3 - 0.4 cm in diameter. KIDNEYS: The right kidney is 12.7 cm and left kidney 13 cm in length. Although the kidneys had heterogeneous cortices on the recent contrast-enhanced CT and MR imaging exams, no focal cortical lesions are seen on this ultrasound examination. Mild amount of right-sided perinephric edema/fluid is noted. A visible calyceal stone in the upper pole of the left kidney is approximately 0.5 cm size. No hydronephrosis. SPLEEN: Mildly enlarged, 13.7 cm maximum dimension. No focal splenic lesion. FREE FLUID: No abdominal ascites. DOPPLER IMAGING: Color Doppler images spectral waveforms show presence of normal flow within portal, hepatic and splenic veins. The main portal vein has a velocity of approximately 15 cm/s. No portal vein thrombosis. Inferior vena cava is normal. Proper hepatic artery has a peak systolic velocity of 75 cm/s. US/US duplex arterial venous comp IMPRESSION: * No evidence of portal vein thrombosis. * Left-sided nephrolithiasis. A stone in the left upper pole is 0.5 cm. No hydronephrosis. * The heterogeneous renal cortices seen on prior imaging exams is not depicted on this renal ultrasound exam. The differential diagnosis for the previously seen renal abnormalities would include immunoglobulin G4-related disease (IgG4-RD). * The edematous appearance of the gallbladder wall at its interface with the liver suggests reactive change, possibly reactive to hepatitis or other inflammatory process. Sludge is present in the gallbladder lumen. No cholelithiasis. No biliary tract obstruction. * Mild splenomegaly is noted.
--- NOTE | ~2023-08-31 | CT_ITS ---
EXAMINATION: CT ANGIOGRAM OF THE CHEST WITH AND WITHOUT CONTRAST (CT PULMONARY ANGIOGRAM FOR PE) CLINICAL INFORMATION: Reason for Exam chest pain, tachycardia, elevated d-dimer COMPARISON: Chest radiograph from 08/31/2023 TECHNIQUE: Prior to contrast administration, noncontrast localization images were obtained. Subsequently, multidetector volumetric imaging was performed from the thoracic inlet to below the diaphragms following the administration of 80 mL Omnipaque 350 intravenous contrast. No contrast reaction reported Sagittal, coronal, and MIP oblique sagittal reformatted images were obtained on the CT workstation, uploaded to PACS, and reviewed. This CT examination was performed using dose optimization techniques as appropriate, variously including the following: *Automated exposure control *Adjustment of mA and/or kV according to patient size (this includes techniques or standardized protocols for targeted exams where dose is matched to indication/reason for exam; i.e. extremities or head) *Use of iterative reconstruction technique Total exam dose-length product 173 mGy-cm FINDINGS: QUALITY OF STUDY/CONTRAST BOLUS: Satisfactory. PULMONARY ARTERIES: No pulmonary emboli. Main pulmonary artery is not enlarged THORACIC AORTA: No aneurysm. Atherosclerotic calcifications of the aortic arch. LUNG/PLEURA: Emphysematous changes. Pleural parenchymal irregularity along the anterior/anterolateral aspect of the left upper lobe (series 7, image [id number]) with punctate calcifications, unclear etiology though may reflect infectious/inflammatory etiology versus fibrotic changes versus sequela of prior surgery/pleurodesis or radiation. Correlation with past medical history. 3 mm nodule right middle lobe (series 7, image 238). Overlying ribs and this region are unremarkable. 2 mm subpleural nodule posterior aspect left lower lobe (series 7, image 271). Central airways are patent. No pneumothorax. No large pleural effusion. MEDIASTINUM: Heart is not enlarged. No pericardial effusion. Coronary artery calcifications are noted. No enlarged lymph nodes per size criteria. Visualized portions of the thyroid are unremarkable. No evidence of septal bowing or right heart strain. CHEST WALL/AXILLA: No axillary or internal mammary lymphadenopathy. Punctate calcifications left breast tissue. OSSEOUS STRUCTURES: Multilevel degenerative changes of the thoracolumbar spine. UPPER ABDOMEN: Decreased hepatic attenuation suggesting hepatic steatosis. Small hiatal hernia. No reflux of contrast into the hepatic veins to suggest elevated right heart pressures. CT/CT angio chest PE protocol IMPRESSION: 1. No pulmonary emboli. 2. Pleural parenchymal irregularity along the anterior/anterolateral aspect of the left upper lobe with punctate calcifications, unclear etiology though may reflect infectious/inflammatory etiology versus fibrotic changes versus sequela of prior surgery/pleurodesis or radiation. Correlation with past medical history. 3. Bilateral pulmonary nodules the largest measuring up to 3 mm. Follow-up as per Fleischner criteria. 4. Decreased hepatic attenuation suggesting hepatic steatosis. 5. Small hiatal hernia. Various management parameters for solitary pulmonary nodules are in the literature. According to the Fleischner Society, recommendations for pulmonary nodules are as follows: According to the UPDATED 2017 Fleischner Society recommendations, the advised follow-up imaging for solid nodules < 6 mm is: LOW RISK PATIENT: No routine follow-up.
--- NOTE | ~2023-08-31 | CT_ITS ---
EXAMINATION: CT CHEST WITHOUT CONTRAST CLINICAL INFORMATION: Hypoxia. COMPARISON: CTA chest dated 08/31/2023. TECHNIQUE: Multidetector volumetric CT imaging of the chest was done. Axial MIP volume rendering provided. Sagittal and coronal reformatted images were obtained. This CT examination was performed using dose optimization techniques as appropriate, variously including the following: *Automated exposure control *Adjustment of mA and/or kV according to patient size (this includes techniques or standardized protocols for targeted exams where dose is matched to indication/reason for exam; i.e. extremities or head) *Use of iterative reconstruction technique DLP: 109 mGy-cm FINDINGS: CAD OPERATOR: There is moderate elevation the right hemidiaphragm. There is are increased bilateral interstitial markings. LUNGS: There are bilateral peribronchial opacities. More dense consolidative foci are seen within the right base within the posterior segment of the upper lobe and the basal segments of the lower lobe, with air bronchograms. No mass or nodule is seen. There is generalized small airway thickening. The central airways appear patent MEDIASTINUM: The thyroid is unremarkable. There is moderate atherosclerotic calcifications of the great vessel origins and thoracic aorta. No thoracic aortic aneurysm is seen. There is no sizable mediastinal or hilar lymphadenopathy. CORONARY ARTERY CALCIFICATION: Moderate. PLEURA: There are small bilateral pleural effusions, right greater than left. No pleural mass or thickening. AXILLA: No lymphadenopathy. UPPER ABDOMEN: Unremarkable. OSSEOUS STRUCTURES: There is multi-level mild lower thoracic spondylosis. No acute or aggressive osseous finding is noted. CT/CT chest wo IV con IMPRESSION: There are extensive bilateral peribronchiolar opacities, with more dense consolidative foci noted at the right base. The findings suggest an infectious etiology, for which clinical correlation is recommended. No mass or nodule is seen. There is no thoracic lymphadenopathy or pleural effusion. There are small bilateral pleural effusions, right greater then left. No aggressive osseous lesion is seen. Recommend follow-up imaging to clearance. Fleischner guidelines were followed.
--- NOTE | ~2023-08-31 | XR_ITS ---
EXAMINATION: XR CHEST CLINICAL INFORMATION: Hypoxia. COMPARISON: 08/31/2023 TECHNIQUE: Frontal view of the chest was obtained. FINDINGS: The lung volumes are low. The cardiomediastinal silhouette is stable. There is lower lung field increased markings. There is no focal lung consolidation or pleural effusions. The bony structures and soft tissues are unremarkable XR/XR chest 1V IMPRESSION: Low lung volumes. Lower lung field increased markings which may be due to low lung volumes with crowded vasculature. There is no focal lung consolidation or pleural effusion.
--- NOTE | 2023-08-31 01:47 | ECG_ITS ---
Test Reason : CHEST PAIN Blood Pressure : / mmHG Vent. Rate : 116 BPM Atrial Rate : 116 BPM P-R Int : 128 ms QRS Dur : 066 ms QT Int : 316 ms P-R-T Axes : 080 014 036 degrees QTc Int : 439 ms Sinus tachycardia Nonspecific ST abnormality Abnormal ECG When compared with ECG of 09-AUG-2023 22:00, Premature atrial complexes are no longer Present Vent. rate has increased BY 41 BPM T wave inversion no longer evident in Inferior leads Referred By: Generic ED Physician Electronically Signed By:LEONARD VASQUEZ MD
--- OUTSIDE RECORDS SUMMARY | 2023-08-31 02:13 | XMS_ITS | Continuity of Care Document ---
Author Organization [facility] Address [address] [place] [address]- Care Team Providers Care Painter Structural Steel Name Role Phone Mago Urena NP Primary Care Physician [phone] Encounter [facility] [place] Date(s): 09/29/19 - 10/29/19 [facility] Diabetes [address] [place] [address]- [facility] Attending Physician: Yuliana Smallwood Admitting Physician: Yuliana Smallwood Referring Physician: AdmtrYuliana Allergies, Adverse Reactions, Alerts Substance Reaction Severity Status amoxicillin Active sulfADIAZINE Active Bactrim Active Medications Aspirin Low Dose 81 mg oral tablet 1 tablet = 81 mg, By Mouth, Daily, 0 Refills, Maintenance Start Date: 07/26/11 Status: Ordered Calcium And Vitamin D Combination By Mouth, 0 Refills, Maintenance Start Date: 07/26/11 Status: Ordered lisinopril 5 mg oral tablet 5 mg, 1, tablet, By Mouth, Daily, # 30 tablet, Refills 0, Maintenance, 02/25/19 16:51:31 EST Start Date: 02/25/19 Status: Ordered lovastatin 20 mg oral tablet 1 tablet = 20 mg, By Mouth, Daily, 0 Refills, Maintenance Start Date: 07/26/11 Status: Ordered Multivitamin By Mouth, Daily, 0 Refills, Maintenance Start Date: 07/26/11 Status: Ordered Problem List Condition Effective Dates Status Health Status Inform ant Malignant Neoplasm of Breast (Female), Left breast cancer, T1b N0, diagnosed in 1997.(Confirmed) 04/25/97 Active Social History Social History Type Response Smoking Status Never smoker entered on: 10/14/14 Sex
--- OUTSIDE RECORDS SUMMARY | 2023-08-31 02:13 | XMS_ITS | Continuity of Care Document ---
Author Organization [facility] Address [address] [place] [address]- Care Team Providers Care Peoplesoft Hr Developer Name Role Phone Ayanna LANE, Mago Primary Care Physician [phone] [place] [facility] [place]22[place] - 02/23/[address] [address]- Discharge Disposition: A-D/C Home Attending Physician: Guilherme Back MD Admitting Physician: Guilherme Back MD Referring Physician: Not on Staff, Referring MD Allergies, Adverse Reactions, Alerts Substance Reaction Severity Status amoxicillin hives Active Bactrim hives Active sulfADIAZINE hives Active Medications Aspirin Low Dose 81 mg oral tablet 1 tablet = 81 mg, By Mouth, Daily, 0 Refills, Maintenance Start Date: 07/26/11 Status: Ordered lovastatin 20 mg oral tablet 1 tablet = 20 mg, By Mouth, Daily, 0 Refills, Maintenance Start Date: 07/26/11 Status: Ordered metoprolol 25 mg oral tablet 25 mg, 1, tablet, By Mouth, Daily, # 180 tablet, Refills 0, Maintenance, 04/07/20 12:01:00 EST, Partial fill upon patient request if the prescription is for a schedule II opioid drug. Start Date: 04/07/20 Status: Ordered Multivitamin By Mouth, Daily, 0 Refills, Maintenance Start Date: 07/26/11 Status: Ordered Problem List Condition Effective Dates Status Health Status Inform ant Malignant Neoplasm of Breast (Female), Left breast cancer, T1b N0, diagnosed in 1997.(Confirmed) 04/25/97 Active Vital Signs Most recent to oldest [Reference Range]: 1 2 3 Height 165 cm (02/23/21 9:44 AM) 165 cm (02/23/21 9:17 AM) 165 cm (02/23/21 7:36 AM) Weight 66 kg (02/23/21 9:44 AM) 66 kg (02/23/21 9:17 AM) 66 kg (02/23/21 7:36 AM) Oxygen Saturation [94-100 %] 98 % (02/23/21 9:44 AM) 99 % (02/23/21 7:36 AM) 100 % (02/23/21 6:14 AM) Pulse Rate [55-90 bpm] 82 bpm (02/23/21 9:44 AM) 72 bpm (02/23/21 7:36 AM) 69 bpm (02/23/21 6:14 AM) Blood Pressure [90-138/55-84 mm Hg] 152/69mm Hg *H* (02/23/21 7:36 AM) 144/76mm Hg *H* (02/23/21 6:14 AM) 149/71mm Hg *H* (02/23/21 2:45 AM) Respiratory Rate [16-30 br/min] 18 br/min (02/23/21 9:44 AM) 16 br/min (02/23/21 7:36 AM) 16 br/min (02/23/21 6:14 AM) Temperature [96.8-100.4 DegF] 97.9 DegF (02/23/21 9:44 AM) 98.4 DegF (02/23/21 7:36 AM) 97.9 DegF (02/23/21 6:14 AM) Mode of Delivery (Oxygen) Room air (02/23/21 7:36 AM) Room air (02/23/21 6:14 AM) Room air (02/23/21 2:45 AM) Blood pressure sites Arm, left (02/23/21 7:36 AM) Arm, right (02/23/21 6:14 AM) Arm, right (02/23/21 2:45 AM) Temperature Route Oral (02/23/21 9:44 AM) Oral (02/23/21 7:36 AM) Oral (02/23/21 6:14 AM) Dry Weight 65 kg (02/23/21 9:44 AM) Weight Obtained Via Patient/family state d (02/23/21 7:36 AM) Social History Social History Type Response Smoking Status 5-9 cigarettes (betw een 1/4 to 1/2 pack)/day in last 30 days entered on: 02/22/21 Sex
--- OUTSIDE RECORDS SUMMARY | 2023-08-31 02:13 | XMS_ITS | Continuity of Care Document ---
Author Organization [facility] Diabetes Address [address] [place] [address]- Care Team Providers Care Disability Rater Name Role Phone Ayanna LANE, Mago Primary Care Physician [place] [facility] [place]06[place]20 [place] 11/05/20 [facility] Diabetes [address] [place] [address] Allergies, Adverse Reactions, Alerts Substance Reaction Severity Status amoxicillin hives Active sulfADIAZINE hives Active Bactrim hives Active Medications Aspirin Low Dose 81 [...]
--- OUTSIDE RECORDS SUMMARY | 2023-08-31 02:13 | XMS_ITS | Continuity of Care Document ---
Author Organization [facility] Address [address] [place] [address]- Care Team Providers Care Gutter Installer Name Role Phone Mago Urena NP Primary Care Physician Encounter [facility] [place] Date(s): 12/16/21 - 12/23/21 [facility] [address] [place], [place] [address] Attending Physician: Jamil Hwang DO Referring Physician: Mago Urena NP Allergies, Adverse Reactions, Alerts Substance Reaction Severity [...] Date: 07/26/11 Status: Ordered Problem List Condition Confirmation Course Effective Dates Status Health St atus Informant Malignant Neoplasm of Breast (Female), Left breast cancer, T1b N0, diagnosed in 1997. Confirmed 04/25/97 Active Social History Social History Type Response Smoking Status 5-9 cigarettes (betw een 1/4 to 1/2 pack)/day in last 30 days entered on: 02/22/21 Sex Patient Care team information Personnel Name: Mago Urena NP Address: Address: [address] [place] [address] [place] [address]- [place]
--- OUTSIDE RECORDS SUMMARY | 2023-08-31 02:13 | XMS_ITS | Continuity of Care Document ---
Author Organization [facility] Address [address] [facility] [place] [address]- Care Team Providers Care Lime Kiln Worker Helper Name Role Phone Ayanna LANE, Mago Primary Care Physician Encounter 11/03/20 - 11/10/20 [facility] [address] [facility], [address] [place] [address]- Attending Physician: Becca Kahn MD Admitting Physician: Becca Kahn MD Referring Physician: Becca Kahn MD Allergies, Adverse Reactions, Alerts Substance Reaction [...]
--- OUTSIDE RECORDS SUMMARY | 2023-08-31 02:13 | XMS_ITS | Continuity of Care Document ---
Author Organization [facility] Address [address] [facility] [place] [address]- Care Team Providers Care Team Facilitator Name Role Phone Mago Urena NP Primary Care Physician Encounter 01/29/22 - 03/23/22 [facility] [address] [facility] [place] [address]- Attending Physician: Mago Urena NP Admitting Physician: Mago Urena NP Referring Physician: Mago Urena NP Allergies, Adverse [...] on: 02/22/21 Sex Patient Care team information Care Team Personnel Name: Mago Urena NP Position: S Outreach Member Role: PCP Address: Address: [address] [facility] [place] [address]- Care Team Related Persons Name: LY TRIPATHI Address: home [address] [place] [address] Name: ALFONZO NETTLES Address: home [address] [place] [address]
--- OUTSIDE RECORDS SUMMARY | 2023-08-31 02:13 | XMS_ITS | Continuity of Care Document ---
Author Organization [facility] Address [address] [place] [address]- Care Team Providers Care Drawer In Plain Loom Name Role Phone Mago Urena NP Primary Care Physician Encounter [facility] [place] Date(s): 10/17/21 - 11/16/21 [facility] [address] [place], [place] [address] Attending Physician: Yuliana Smallwood Admitting Physician: Admtr, Yuliana Referring Physician: Admtr, Ar8 Allergies, Adverse Reactions, Alerts Substance Reaction Severity [...] last 30 days entered on: 02/22/21 Sex Care Team Personnel Name: Mago Urena NP Address: [address] [facility] [place] [address]- [place]
--- OUTSIDE RECORDS SUMMARY | 2023-08-31 02:13 | XMS_ITS | Continuity of Care Document ---
Author Organization [facility] Address [address] [place] [address]- Care Team Providers Care Auto Damage Insurance Appraiser Name Role Phone Mago Urena NP Primary Care Physician Encounter [facility] [place] Date(s): 10/17/21 - 10/24/21 [facility] [address] [place] [address]- Encounter Diagnosis Elevated blood pressure reading in office with white coat syndrome, with diagnosis of hypertension(Discharge Diagnosis) - 10/17/21 Attending Physician: Jamil Hwang DO Referring Physician: [...] T1b N0, diagnosed in 1997.(Confirmed) 04/25/97 Active Diagnosis Diagnosis Type Effective Dates Health Status Clinical Service Informant Elevated blood pressure reading in office with white coat syndrome, with diagnosis of hypertension Discharge Diagnosis 10/17/21 Vital Signs Most recent to oldest [Reference Range]: 1 Height 165 cm (10/17/21 12:24 PM) Oxygen Saturation [94-100 %] 100 % (10/17/21 12:24 PM) Pulse Rate [55-90 bpm] 74 bpm (10/17/21 12:24 PM) Blood Pressure [90-138/55-84 mm Hg] 166/ 72mm Hg *H* (10/17/21 12:24 PM) Temperature [96.8-100.4 DegF] 98.2 DegF (10/17/21 12:24 PM) Mode of Delivery (Oxygen) Room air (10/17/21 12:24 PM) Blood pressure sites Arm, right (10/17/21 12:24 PM) Temperature Route Temporal (10/17/21 12:24 PM) Social History Social History Type Response Smoking Status 5-9 cigarettes (betw een 1/4 to 1/2 pack)/day in last 30 days entered on: 02/22/21 Sex
--- OUTSIDE RECORDS SUMMARY | 2023-08-31 02:13 | XMS_ITS | Continuity of Care Document ---
Author Organization [facility] Address [address] [place] [address]- Care Team Providers Care Stock Handler Floorperson Name Role Phone Ayanna LANE, Mago Primary Care Physician Encounter [facility] Date(s): 11/10/20 - 12/10/20 [facility] [address] [place] [id number] Attending Physician: Yuliana Smallwood Admitting Physician: AdmYuliana haque Referring Physician: Admtr, Ar8 Allergies, Adverse Reactions, [...]
--- OUTSIDE RECORDS SUMMARY | 2023-08-31 02:13 | XMS_ITS | Continuity of Care Document ---
Author Organization [facility] Address [address] [place] [address]- Care Team Providers Care Plush Finisher Name Role Phone Ayanna LANE, Mago Primary Care Physician [place] [facility] [place] 12/03/20 [facility] [address] [place] [id number] Allergies, Adverse Reactions, Alerts Substance Reaction Severity [...]
--- OUTSIDE RECORDS SUMMARY | 2023-08-31 02:13 | XMS_ITS | Continuity of Care Document ---
Author Organization [facility] Address [address] [place] [address]- Care Team Providers Care Stretch Machine Operator Name Role Phone Ayanna LANE, Mago Primary Care Physician [phone] Encounter [facility] [place] Date(s): 06/02/20 - 07/02/20 [facility] [address] [place] [id number] Allergies, Adverse Reactions, Alerts Substance Reaction Severity [...]
--- OUTSIDE RECORDS SUMMARY | 2023-08-31 02:13 | XMS_ITS | Continuity of Care Document ---
Author Organization [facility] Address [address] [place] [address]- Care Team Providers Care Piercing Machine Operator Name Role Phone Mago Urena NP Primary Care Physician Encounter [facility] [place] Date(s): 12/16/21 - 01/15/22 [facility] [address] [place], [place] [address] Attending Physician: Yuliana Smallwood Admitting Physician: AdmtrYuliana Referring Physician: Admtr, Ar8 Allergies, Adverse Reactions, [...] Personnel Name: Mago Urena NP Address: Address: [address] [place] [address] [place] [address]-
[2023-08-31 02:21] LABS: Hematocrit 29.9 % (37.0-47.0); Hemoglobin 10.3 g/dl (12.0-16.0); Mean Corpuscular HGB Conc 34.4 g/dl (31.0-35.0); Mean Corpuscular Hemoglobin 29.3 pg (27.0-33.0); Mean Corpuscular Volume 85.2 fL (80.0-98.0); Mean Platelet Volume 9.2 fL (9.4-12.3); Platelet Count 213 X10*3/uL (160-400); Red Blood Count 3.51 X10*6/uL (4.20-5.50); Red Cell Distribution Width 13.8 % (11.0-16.0)
[2023-08-31 02:33] LABS: Anion Gap 15 (12-20); Blood Urea Nitrogen 27 mg/dL (9-16); Calcium 10.7 mg/dL (8.4-10.2); Carbon Dioxide 25 mmol/L (22-29); Chloride 98 mmol/L (96-108); Creatinine Clr Calc Pharmacy 46.8; Estimated Glomerular Filt Rate 55; Glucose Random 168 mg/dL (60-115); Potassium 4.1 mmol/L (3.3-5.1); Sodium 134 mmol/L (135-145)
[2023-08-31 02:42] LABS: Troponin-I High Sensitivity 17.3 ng/L (<3.5-17.0)
[2023-08-31 02:46] LABS: Atypical Lymph Absolute Manual 0.2 x10*3/uL; Atypical Lymphs Percent Manual 2 % (0-6); Band Neutrophils Percent 2 % (3-5); Eosinophils Absolute Manual 0.1 X10*3/uL (0.0-0.4); Eosinophils Percent Manual 1 % (0-4); Lymphocytes Absolute Manual 0.6 X10*3/uL (1.2-4.9); Lymphocytes Percent Manual 5 % (20-40); Metamyelocytes Absolute 0.1 X10*3/uL; Metamyelocytes Percent 1 %; Monocytes Absolute Manual 0.7 X10*3/uL (0.1-1.2); Monocytes Percent Manual 6 % (2-11); Neutrophils Absolute Manual 9.4 X10*3/uL (2.0-8.3); Neutrophils Percent Manual 83 % (45-73)
[2023-08-31 02:47] LABS: Platelet Estimate NORMAL (NORMAL); Platelet Morphology Comment NORMAL; RBC Morphology NORMAL; Toxic Vacuolation PRESENT
--- NOTE | 2023-08-31 06:41 | ED_ITS ---
HPI - Chest Pain General Chief Complaint: Chest Pain Stated Complaint: chest pain Time Seen by Provider: 08/31/23 06:21 Source: patient, EMS and RN notes reviewed Mode of arrival: EMS Limitations: no limitations History of Present Illness ED Provider: Chandrakant Solorzano NP HPI narrative: Patient is a 73-year-old female with history of breast CA 1998, HLD, renal calculi, irregular HR presenting to the emergency department with complaint of chest pain and tachycardia. She reports that she has been having chest pain upon waking every day for the past 3-4 weeks. She was seen in this ED on 08/08, advised to follow up with tie up worker. Saw Dr. Loera this week who ordered an echo and stress test for next week. Patient states that yesterday she went outside for around 30 minutes when she became lightheaded, felt as though she was about to pass out. Lowered herself to her knees, and reports brief loss of consciousness. Denies head strike, event was not witnessed. Patient currently reporting 12 chest pain which has been constant since 9pm last night. Got ASA from EMS enroute to the ED. MD complaint: chest pain Onset (ago): week(s) Timing of current episode: constant Prior episodes: Yes Onset: during rest Pain location: substernal Pain radiation: none Severity: severe Quality: heaviness Associated symptoms: dyspnea Treatment prior to arrival: aspirin Related Data Home Medications ?Medication ?Instructions ?Recorded ?Confirmed lovastatin 20 mg tablet 20 mg PO BEDTIME 01/13/23 08/19/23 metoprolol succinate 50 mg 50 mg PO DAILY 08/19/23 08/19/23 tablet,extended release 24 hr Previous Rx's ?Medication ?Instructions ?Recorded aspirin 81 mg tablet,delayed 81 mg PO DAILY #30 tabs 08/09/23 release (Ecotrin Low Strength) blood sugar diagnostic (FreeStyle #100 ea 08/19/23 Lite Strips) blood-glucose meter (FreeStyle #1 ea 08/19/23 Lite Meter kit) lancets 28 gauge (FreeStyle #100 ea 08/19/23 Lancets) metformin 500 mg tablet 500 mg PO BID 90 days #180 tabs 08/19/23 Allergies Allergy/AdvReac Type Severity Reaction Status Date / Time sulfamethoxazole Allergy Intermediate HIVES Verified 08/31/23 01:50 [From Bactrim] trimethoprim [From Bactrim] Allergy Intermediate HIVES Verified 08/31/23 01:50 amoxicillin [Amoxicillin] Allergy Mild RASH Verified 08/31/23 01:50 Sulfa (Sulfonamide Allergy Unknown Hives Verified 08/31/23 01:50 Antibiotics) Review of Systems 2 Review of Systems: As per HPI. Yes all other systems are reviewed and are negative Constitutional: Constitutional: Reports as per HPI [facility] Past Medical History Medical History (Updated 08/31/23 @ 11:28 by Marion Solorzano NP) Irregular heart beat Kidney stone Hyperlipidemia Cancer of breast Surgical History H/O colonoscopy History of lumpectomy of left breast Hx of thumb surgery S/P JUSTIN (total abdominal hysterectomy) History of surgery on arm Family History Family History (Updated 08/19/23 @ 09:54 by Li Whitehead MD) Mother Tuberculosis Brother Myocardial infarction, Onset Age: 55 Skin cancer Father Skin cancer Social History Social History Housing: House Alcohol intake: never Patient Tobacco Use Status: Current everyday Tobacco user Tobacco use type: Cigarette Cigarettes Per Day: 3 Smoked in Last 30 Days: No e-Cigarette/Vaping Use: Never Used Second Hand Smoke Exposure: No Use of substances other than those prescribed or required for medical reasons: No Advance Directives: No Advance Directives Information Provided: No Do you have a plan to hurt others: No Plan service: No Current occupational status: retired Cognitive needs: No Hearing needs: No Vision needs: Yes Physical Exam 2 Vital Signs: Vital Signs: Last Vital Signs Temp 98.6 F 08/31/23 06:13 Pulse 102 H 08/31/23 08:00 Resp 22 H 08/31/23 08:00 BP 152/63 H 08/31/23 08:00 Pulse Ox 98 08/31/23 08:00 O2 Del Method Room Air 08/31/23 08:00 BMI result Body Mass Index 24.4 Vital signs have been reviewed and appear to be correct. Blood pressure elevated. Heart rate slightly tachycardic. Respiratory rate normal. Temperature normal. Oxygen saturation normal. Const: General: cooperative, healthy appearing and no acute distress O rientation/consciousness: oriented to person, oriented to place, oriented to time and patient oriented x3 Limitations: no limitations HEENT: Head: Yes normocephalic and Yes atraumatic Ears: external ears normal General nose exam: Normal external nose present Face and sinus: Yes face symmetric Mouth: oropharynx normal and moist mucous membranes T hroat: Yes uvula midline Eyes: Pupils: Equal, round and reactive pupils present Neck: Neck: Yes normal visual inspection and Yes supple Resp: Effort & Inspection: normal respiratory effort and able to speak in complete sentences Auscultation: clear to auscultation bilaterally Cardio: Rate: tachycardic Rhythm: regular rhythm Heart sounds: S1 normal heart sound present and S2 normal heart sound present Peripheral pulses: P eripheral pulses 2+ throughout GI: Palpation (GI): Soft to palpation and nontender Auscultation: n ormoactive bowel sounds : General: Yes no CVA tenderness Back/Spine/Pelvis: Back: no CVA tenderness Skin: General skin exam: elasticity normal and turgor normal Neuro: General: oriented to person, oriented to place, oriented to time, patient oriented x3, moves all extremities, no focal motor deficits and CN's II- XI intact bilaterally Cranial nerves: Yes Equal, round and reactive pupils present Cognition (Neuro): normal cognition Extrem: General: Yes full ROM, Yes no pedal edema and Yes no calf tenderness Psych: Mental Status: mental status grossly normal Affect: normal affect Thought process: Normal thought process present Medications Administered Generic Name Dose Route Start Last Admin Trade Name Freq PRN Reason Stop Dose Admin Nitroglycerin 0.4 mg 08/31/23 06:47 08/31/23 08:03 Nitroglycerin 0.4 Mg Tab.Subl SUBLINGUAL 0.4 mg [id number] PRN Administration Chest Pain Discontinued Medications Generic Name Dose Route Start Last Admin Trade Name Freq PRN Reason Stop Dose Admin Sodium Chloride 1,000 mls @ 999 mls/hr 08/31/23 06:30 08/31/23 09:45 Ns IV 08/31/23 07:30 Infused .Q1H1M JORGE Infusion Iohexol 100 ml 08/31/23 09:12 08/31/23 09:13 Iohexol 350 Mg/Ml 100 Ml Infus..Btl IV 08/31/23 09:13 65 ml ONCE ONE Administration Morphine Sulfate 4 mg 08/31/23 06:48 08/31/23 08:47 Morphine Sulfate 4 Mg/Ml Cartridge IM 08/31/23 06:49 4 mg ONCE ONE Administration Protocol Medical Decision Making Medical Decision Making [facility] Narrative: Patient is a 73-year-old female with history of breast CA 1997, HLD, renal calculi, irregular HR presenting to the emergency department with complaint of chest pain and tachycardia. On exam patient is awake, A+Ox3, slightly tachycardic, BP elevated, afebrile, normal neurological exam without focal deficits, physical exam findings as above. Given reported symptoms and physical exam findings, initial differential includes ACS, PE given tachycardia, syncope, dehydration, electrolyte abnormality. Less likely ICH, but given syncope and unable to confirm head strike, will obtain CT head. EKG shows sinus tachycardia. Labs notable for slight leukocytosis, 2 point drop in H&H from visit on 08/08, but not at transfusable level, elevated BUN, elevated troponin. IV fluids ordered. Patient denies any hematochezia or melena, will send guaiac. X-ray chest notable for mild peribronchial thickening, no pneumothorax, pneumonia. My interpretation is in agreement with the radiologist's interpretation. Plan: repeat troponin, obtain d-dimer, CT head, medicate for pain. 08:30 CT head notable for no ICH/infarct. Age adjusted D-dimer elevated, CTA chest ordered to evaluate for possible PE. 11:15 No delta on repeat troponin. Patient remains tachycardic around 110. CTA chest notable for no PE. Case discussed with Dr. Patterson who recommends metoprolol for rate, Q6H troponins, echo tomorrow. Discussed with Dr. Ramires who accepts admission to medicine. Differential Diagnosis Differential Diagnoses: The differential diagnosis associated with the presentation includes As per [facility]. Admission/Observation Consideration of admission/observation: Escalation of care including admission/observation considered Consult Healthcare Provider Management of the patient was discussed with: Hospitalist (Dr. Ramires) and Hand Rug Cleaner (Dr. Patterson) Lab Data [facility] Lab Attestation statement: I reviewed the patient's lab results. As per [facility] 08/31/23 02:15 08/31/23 02:15 Labs: Lab Results 08/31/23 08/31/23 08/31/23 Range/Units 02:15 08:08 08:13 WBC 11.0 H (4.8-10.8) X10*3/uL RBC 3.51 L (4.20-5.50) X10*6/uL Hgb 10.3 L (12.0-16.0) g/dl Hct 29.9 L (37.0-47.0) % MCV 85.2 (80.0-98.0) fL MCH 29.3 (27.0-33.0) pg MCHC 34.4 (31.0-35.0) g/dl RDW 13.8 (11.0-16.0) % Plt Count 213 D (160-400) X10*3/uL MPV 9.2 L (9.4-12.3) fL Immature Gran % (Auto) Cancelled Neut % (Auto) Cancelled Lymph % (Auto) Cancelled [place] % (Auto) Cancelled Eos % (Auto) Cancelled Baso % (Auto) Cancelled Lymph # (Auto) Cancelled [place] # (Auto) Cancelled Eos # (Auto) Cancelled Baso # (Auto) Cancelled Abs Immat Gran (auto) Cancelled Absolute Neuts (auto) Cancelled Absolute Nucleated RBC 0.000 (0.0-0.012) X10*3/uL Nucleated RBC % (auto) 0.0 (0.0-0.2) /100WBC Neutrophils % (Manual) 83 H (45-73) % Band Neutrophils % 2 L (3-5) % Lymphocytes % (Manual) 5 L (20-40) % Atypical Lymphs % (Man) 2 (0-6) % Monocytes % (Manual) 6 (2-11) % Eosinophils % (Manual) 1 (0-4) % Metamyelocytes % 1 % Abs Neuts (Manual) 9.4 H (2.0-8.3) X10*3/uL Lymphocytes # (Manual) 0.6 L (1.2-4.9) X10*3/uL Atyp Lymphs # (Manual) 0.2 x10*3/uL Monocytes # (Manual) 0.7 (0.1-1.2) X10*3/uL Eosinophils # (Manual) 0.1 (0.0-0.4) X10*3/uL Metamyelocytes # 0.1 X10*3/uL Toxic Vacuolation PRESENT Platelet Estimate NORMAL (NORMAL) Plt Morphology Comment NORMAL RBC Morphology NORMAL PT 13.0 (11.1-13.3) SEC INR 1.1 (0.9-1.1) D-Dimer High Sensitivty 2460 NG/ML Sodium 134 L (135-145) mmol/L Potassium 4.1 (3.3-5.1) mmol/L Chloride 98 (96-108) mmol/L Carbon Dioxide 25 (22-29) mmol/L Anion Gap 15 (12-20) BUN 27 H (9-16) mg/dL Creatinine 0.99 (0.5-1.4) mg/dL Estim Creat Clear Calc 46.8 Estimated GFR 55 POC Glucose 133 H (60-115) mg/dL Random Glucose 168 H (60-115) mg/dL Calcium 10.7 H (8.4-10.2) mg/dL Troponin I High Sens 17.3 H D 24.8 H (<3.5-17.0) ng/L Stool Occult Blood (NEGATIVE) 08/31/23 Range/Units 08:23 WBC (4.8-10.8) X10*3/uL RBC (4.20-5.50) X10*6/uL Hgb (12.0-16.0) g/dl Hct (37.0-47.0) % MCV (80.0-98.0) fL MCH (27.0-33.0) pg MCHC (31.0-35.0) g/dl RDW (11.0-16.0) % Plt Count (160-400) X10*3/uL MPV (9.4-12.3) fL Immature Gran % (Auto) Neut % (Auto) Lymph % (Auto) [place] % (Auto) Eos % (Auto) Baso % (Auto) Lymph # (Auto) [place] # (Auto) Eos # (Auto) Baso # (Auto) Abs Immat Gran (auto) Absolute Neuts (auto) Absolute Nucleated RBC (0.0-0.012) X10*3/uL Nucleated RBC % (auto) (0.0-0.2) /100WBC Neutrophils % (Manual) (45-73) % Band Neutrophils % (3-5) % Lymphocytes % (Manual) (20-40) % Atypical Lymphs % (Man) (0-6) % Monocytes % (Manual) (2-11) % Eosinophils % (Manual) (0-4) % Metamyelocytes % % Abs Neuts (Manual) (2.0-8.3) X10*3/uL Lymphocytes # (Manual) (1.2-4.9) X10*3/uL Atyp Lymphs # (Manual) x10*3/uL Monocytes # (Manual) (0.1-1.2) X10*3/uL Eosinophils # (Manual) (0.0-0.4) X10*3/uL Metamyelocytes # X10*3/uL Toxic Vacuolation Platelet Estimate (NORMAL) Plt Morphology Comment RBC Morphology PT (11.1-13.3) SEC INR (0.9-1.1) D-Dimer High Sensitivty NG/ML Sodium (135-145) mmol/L Potassium (3.3-5.1) mmol/L Chloride (96-108) mmol/L Carbon Dioxide (22-29) mmol/L Anion Gap (12-20) BUN (9-16) mg/dL Creatinine (0.5-1.4) mg/dL Estim Creat Clear Calc Estimated GFR POC Glucose (60-115) mg/dL Random Glucose (60-115) mg/dL Calcium (8.4-10.2) mg/dL Troponin I High Sens (<3.5-17.0) ng/L Stool Occult Blood NEGATIVE (NEGATIVE) Independent Interpretation I performed an independent interpretation of an: EKG (sinus tachycardia, rate 116 bpm, normal RI interval and QTc), Plain X-Ray and CT Scan Interpretation: Mild peribronchial thickening on CXR, no pneumothorax or pneumonia. CT head notable for no ICH/infarct. No evidence of PE of CTA chest. Radiology Impression Discussion of test interpretation with radiology: I have reviewed the radiologist's reading. Radiologist Impression: XR/XR chest 1V IMPRESSION: No focal consolidation. Suggestion of mild central peribronchial thickening which may reflect airways disease. CT/CT head/brain wo IV con IMPRESSION: No acute intracranial abnormality including hemorrhage, mass effect, hydrocephalus, or acute territorial edematous infarction. CT/CT angio chest PE protocol IMPRESSION: 1. No pulmonary emboli. 2. Pleural parenchymal irregularity along the anterior/anterolateral aspect of the left upper lobe with punctate calcifications, unclear etiology though may reflect infectious/inflammatory etiology versus fibrotic changes versus sequela of prior surgery/pleurodesis or radiation. Correlation with past medical history. 3. Bilateral pulmonary nodules the largest measuring up to 3 mm. Follow-up as per Fleischner criteria. 4. Decreased hepatic attenuation suggesting hepatic steatosis. 5. Small hiatal hernia. Various management parameters for solitary pulmonary nodules are in the literature. According to the Fleischner Society, recommendations for pulmonary nodules are as follows: According to the UPDATED 2017 Fleischner Society recommendations, the advised follow-up imaging for solid nodules < 6 mm is: LOW RISK PATIENT: No routine follow-up. External Record Review External record reviewed: Inpatient record, Office record and Outpatient record Prescription Management I considered prescription management with: Pain Medication and Other Discharge Plan Discharge Patient Disposition: Admitted As Inpatient Prescriptions: No Action lovastatin 20 mg tablet 20 mg PO BEDTIME aspirin [Ecotrin Low Strength] 81 mg tablet,delayed release (DR/EC) 81 mg PO DAILY Qty: 30 0RF metoprolol succinate 50 mg tablet extended release 24 hr 50 mg PO DAILY metformin 500 mg tablet 500 mg PO BID 90 Days Qty: 180 1RF (DME) blood-glucose meter [FreeStyle Lite Meter] Kit See Rx Instructions .Route Qty: 1 0RF Rx Instructions: As directed (DME) FreeStyle Lite Strips Strip See Rx Instructions .Route Qty: 100 3RF Rx Instructions: Use 1 test strip once a day (DME) lancets [FreeStyle Lancets] 28 gauge misc See Rx Instructions .Route Qty: 100 3RF Rx Instructions: Use 1 lancet once a day Print Language: [place]
[2023-08-31] MEDS: 0.9 % Sodium Chloride 1,000 ML 999 ML IV (07:59)
[2023-08-31] MEDS: Nitroglycerin 0.4 MG TAB.SUBL SUBLINGUAL (08:03)
[2023-08-31 08:17] LABS: Glucose, Whole Blood 133 mg/dL (60-115)
[2023-08-31 08:19] LABS: INTERNATIONAL NORM RATIO 1.1 (0.9-1.1)
[2023-08-31 08:21] LABS: D Dimer High Sensitivity 2460 NG/ML
[2023-08-31 08:29] LABS: OBS Int Ctl Valid YES; OBS1 NEGATIVE (NEGATIVE)
[2023-08-31 08:36] LABS: Troponin-I High Sensitivity 24.8 ng/L (<3.5-17.0)
[2023-08-31] MEDS: Morphine Sulfate 4 MG/ML CARTRIDGE IM (08:47)
--- NOTE | 2023-08-31 08:52 | PC.NURSE ---
pt wanting to refuse CT with contrast because she is concerned about not taking her metformin for 2 days
[2023-08-31] MEDS: iohexoL 350 MG/ML 100 ML INFUS..BTL IV (09:13)
--- NOTE | 2023-08-31 11:55 | PHA.MEDREC ---
Pharmacy Consult ? Medication Reconciliation Pharmacy has completed the medication reconciliation. spoke with patient to confirm, she took her medications yesterday.
--- NOTE | 2023-08-31 12:15 | P.HPHOSP_ITS ---
History of Present Illness Date of Service: 08/31/23 Attending physician on admission: [facility] Chief Complaint: chest pain 73 year old female with history of type 2 diabetes, hld, hx breast cancer 1990s presented to the ED earlier today for evaluation of chest pain. She states for the last 2-3 weeks she has been waking up with lightheadedness and palpitations, takes her HR and it is in the 130s. She sits to rest with resolution of symptoms. With the palpitations and lightheadedness she also reports shortness of breath. She has also had a constant sharp diffuse headache without any visual changes. She states yesterday while walking developed near syncope and briefly saw black and lowered herself to the ground. No head injury. She again rested and felt better. This morning around 1am she developed sharp midsternal chest pain radiating through to the back with associated palpitations around 1am last night. No associated diaphoresis, n/v, sob, lightheadedness at the time. Pain was a 10/10 and reports it is still the same despite 325mg asa, nitro, and morphine. She is endorsing anxiety at this time, but states was not prior. Reports similar symptoms have happened in the past dating back 5 years. Reports unintentional weight loss x 2 weeks with new diagnosis of type 2 diabetes and was started on metformin. Her daughter reports she has only been eating about 300-400 calories a day and does not know what to eat with the diabetes. Has also been drinking only 2 cups of water per day. No fevers, chills, st, congestion, abd pain, n/v/d, urinary symptoms, cough. No recent illness. Since arrival has been tachycardic and tachypneic. Mild leukocytosis of 11.0. Normocytic anemia with h/h 10.3/29.9%. Renal fx normal, lytes normal except for Na 134, Ca 10.7. Glucose 133. Initial trop 17.3, repeat 24.8. EKG shows sinus tach, no acute ischemic changes. Head CT negative for acute intracranial abnormality. CTA chest negative for PE, shows pleural parenchymal irregularity along the anterior/anterolateral aspect of the ELISA with punctate calcifications with bilateral pulmonary nodules. In the ED given nitro, morphine, ns. Review of Systems 2 Review of Systems: General: No fevers, malaise, unintentional weight loss HEENT: No blurred vision, diplopia. No sore throat, nasal congestion, rhinorrhea, sinus pain, ear pain Cardiovascular: +chest pain. No palpitations, or leg edema Respiratory: No shortness of breath, wheezing, cough GI: No abdominal pain, nausea, vomiting, diarrhea, constipation, melena, hematochezia : No dysuria, hematuria, increased urinary frequency, decreased urinary output MSK: No myalgia, back pain Neuro: No headaches, weakness, paresthesias. +lightheadedness Skin: No rashes or lesions [facility] Medical History (Updated 09/01/23 @ 09:46 by Edwin Ibarra MD) Chest pain Type 2 diabetes mellitus with hyperglycemia, without long-term current use of insulin Irregular heart beat Kidney stone Hyperlipidemia Cancer of breast Family History (Updated 08/19/23 @ 09:54 by Li Whitehead MD) Mother Tuberculosis Brother Myocardial infarction, Onset Age: 55 Skin cancer Father Skin cancer Surgical History H/O colonoscopy History of lumpectomy of left breast Hx of thumb surgery S/P JUSTIN (total abdominal hysterectomy) History of surgery on arm Social History Housing: House Alcohol intake: never Patient Tobacco Use Status: Never used Tobacco Tobacco use type: Cigarette Cigarettes Per Day: 3 Smoked in Last 30 Days: No e-Cigarette/Vaping Use: Never Used Second Hand Smoke Exposure: No Use of substances other than those prescribed or required for medical reasons: No Currently Displaying Signs/Symptoms of Drug Intoxication Withdrawal: No Advance Directives: No Advance Directives Information Provided: No Do you have a plan to hurt others: No Plan Nutrition Risks: No Nutritional Risk service: No Current occupational status: retired Cognitive needs: No Hearing needs: No Vision needs: Yes Meds Allergies Allergy/AdvReac Type Severity Reaction Status Date / Time sulfamethoxazole Allergy Intermediate HIVES Verified 08/31/23 01:50 [From Bactrim] trimethoprim [From Bactrim] Allergy Intermediate HIVES Verified 08/31/23 01:50 amoxicillin [Amoxicillin] Allergy Mild RASH Verified 08/31/23 01:50 Sulfa (Sulfonamide Allergy Unknown Hives Verified 08/31/23 01:50 Antibiotics) Active Medications: Current Medications Acetaminophen (Acetaminophen 325 Mg Tablet) 650 mg PO Q6H PRN PRN Reason: Pain, Mild (Pain Scale 1-3) Aspirin (Aspirin Enteric Coated 81 Mg Tablet.Dr) 81 mg PO DAILY [facility] Enoxaparin Sodium (Enoxaparin Sodium 40 Mg/0.4 Ml Syringe) 40 mg SUBCUT Q24H [facility] Glucose (Glucose Gel 15 Gm Gel..Gram.) 15 gm PO Q15M PRN; Protocol PRN Reason: per Hypoglycemia Standing Ord. Dextrose (D10) 250 mls @ 750 mls/hr IV Q15M PRN; Protocol PRN Reason: per Hypoglycemia Standing Ord. Insulin Human Lispro (Insulin Lispro 100 Unit/Ml 3 Ml Vial) 0 unit SUBCUT QIDACHS [facility]; Protocol Magnesium Hydroxide (Milk Of Magnesia 30 Ml Oral.Susp) 30 ml PO DAILY PRN PRN Reason: Constipation Metoprolol Succinate (Metoprolol Succinate Er 50 Mg Tab.Er.24h) 50 mg PO DAILY [facility]; Protocol Multivitamins/Vitamin C (Multivitamin Tablet) 1 tab PO DAILY [facility] Nitroglycerin (Nitroglycerin 0.4 Mg Tab.Subl) 0.4 mg SUBLINGUAL Q5MX3 PRN PRN Reason: Chest Pain Last Admin: 08/31/23 08:03 Dose: 0.4 mg Non-Formulary Medication (Lovastatin) 20 mg PO DAILY [facility] Ondansetron HCl (Ondansetron Hcl 4 Mg/2 Ml Vial) 4 mg IVPUSH Q8H PRN PRN Reason: Nausea and Vomiting Sodium Chloride (0.9 % Sodium Chloride Flush 3 Ml Syringe) 3 ml IVFLUSH QSHIFT [facility] Vitamin D (Cholecalciferol (Vitamin D3) 25 Mcg Tablet) 25 mcg PO DAILY [facility] Home Medications ?Medication ?Instructions ?Recorded ?Confirmed ?Last Taken ?Type lovastatin 20 mg tablet 20 mg PO DAILY 01/13/23 08/31/23 08/30/23 History metoprolol succinate 50 mg 50 mg PO DAILY 08/19/23 08/31/23 08/30/23 History tablet,extended release 24 hr cholecalciferol (vitamin D3) 25 25 mcg PO DAILY 08/31/23 08/31/23 08/30/23 History mcg (1,000 unit) tablet (Vitamin D3) multivitamin 1 tab PO DAILY 08/31/23 08/31/23 08/30/23 History Physical Exam 2 Vital Signs and Narrative: Vital Signs: Last Vital Signs Temp 98.6 F 08/31/23 06:13 Pulse 102 H 08/31/23 08:00 Resp 22 H 08/31/23 08:00 BP 152/63 H 08/31/23 08:00 Pulse Ox 98 08/31/23 08:00 O2 Del Method Room Air 08/31/23 08:00 BMI result Body Mass Index 24.4 Constitutional - Awake and Alert, No apparent distress Eyes - PERRLA, EOMI Cardiovascular - S1S2, regular rhythm, tachycardia, no murmurs, No edema Respiratory - Normal lung expansion, Normal respiratory effort, No respiratory distress, CTA bilaterally Gastrointestinal - NT / ND; +BS; No rebound or guarding Extremities - no calf tenderness bilaterally, no swelling Skin - Warm/Dry Neurological - Alert & oriented x3 Psychological - Appropriate affect Results Labs 09/01/23 04:39 09/01/23 04:39 Labs: Laboratory Results - last 24 hr 08/31/23 08/31/23 08/31/23 02:15 08:08 08:13 MCV 85.2 MCH 29.3 MCHC 34.4 RDW 13.8 Plt Count 213 D MPV 9.2 L Immature Gran % (Auto) Cancelled Neut % (Auto) Cancelled Lymph % (Auto) Cancelled Lamar % (Auto) Cancelled Eos % (Auto) Cancelled Baso % (Auto) Cancelled Lymph # (Auto) Cancelled Lamar # (Auto) Cancelled Eos # (Auto) Cancelled Baso # (Auto) Cancelled Abs Immat Gran (auto) Cancelled Absolute Neuts (auto) Cancelled Absolute Nucleated RBC 0.000 Nucleated RBC % (auto) 0.0 Neutrophils % (Manual) 83 H Band Neutrophils % 2 L Lymphocytes % (Manual) 5 L Atypical Lymphs % (Man) 2 Monocytes % (Manual) 6 Eosinophils % (Manual) 1 Metamyelocytes % 1 Abs Neuts (Manual) 9.4 H Lymphocytes # (Manual) 0.6 L Atyp Lymphs # (Manual) 0.2 Monocytes # (Manual) 0.7 Eosinophils # (Manual) 0.1 Metamyelocytes # 0.1 Toxic Vacuolation PRESENT Platelet Estimate NORMAL Plt Morphology Comment NORMAL RBC Morphology NORMAL PT 13.0 INR 1.1 D-Dimer High Sensitivty 2460 Anion Gap 15 Estim Creat Clear Calc 46.8 Estimated GFR 55 POC Glucose 133 H Random Glucose 168 H Calcium 10.7 H Troponin I High Sens 17.3 H D 24.8 H Stool Occult Blood 08/31/23 08:23 MCV MCH MCHC RDW Plt Count MPV Immature Gran % (Auto) Neut % (Auto) Lymph % (Auto) Lamar % (Auto) Eos % (Auto) Baso % (Auto) Lymph # (Auto) Lamar # (Auto) Eos # (Auto) Baso # (Auto) Abs Immat Gran (auto) Absolute Neuts (auto) Absolute Nucleated RBC Nucleated RBC % (auto) Neutrophils % (Manual) Band Neutrophils % Lymphocytes % (Manual) Atypical Lymphs % (Man) Monocytes % (Manual) Eosinophils % (Manual) Metamyelocytes % Abs Neuts (Manual) Lymphocytes # (Manual) Atyp Lymphs # (Manual) Monocytes # (Manual) Eosinophils # (Manual) Metamyelocytes # Toxic Vacuolation Platelet Estimate Plt Morphology Comment RBC Morphology PT INR D-Dimer High Sensitivty Anion Gap Estim Creat Clear Calc Estimated GFR POC Glucose Random Glucose Calcium Troponin I High Sens Stool Occult Blood NEGATIVE Imaging Radiologist's Impressions: Impressions Chest X-Ray 08/31/23 02:03 IMPRESSION: No focal consolidation. Suggestion of mild central peribronchial thickening which may reflect airways disease. Head CT 08/31/23 06:42 IMPRESSION: No acute intracranial abnormality including hemorrhage, mass effect, hydrocephalus, or acute territorial edematous infarction. Chest CTA 08/31/23 09:21 IMPRESSION: 1. No pulmonary emboli. 2. Pleural parenchymal irregularity along the anterior/anterolateral aspect of the left upper lobe with punctate calcifications, unclear etiology though may reflect infectious/inflammatory etiology versus fibrotic changes versus sequela of prior surgery/pleurodesis or radiation. Correlation with past medical history. 3. Bilateral pulmonary nodules the largest measuring up to 3 mm. Follow-up as per Fleischner criteria. 4. Decreased hepatic attenuation suggesting hepatic steatosis. 5. Small hiatal hernia. Various management parameters for solitary pulmonary nodules are in the literature. According to the Fleischner Society, recommendations for pulmonary nodules are as follows: According to the UPDATED 2017 Fleischner Society recommendations, the advised follow-up imaging for solid nodules < 6 mm is: LOW RISK PATIENT: No routine follow-up. Assessment and Plan (1) Chest pain: Status: Acute Plan 73 year old female with history of type 2 diabetes, hld, hx breast cancer 1990s to be observed for chest pain #Chest pain- seems atypical -initial trop 17-->24, no delta. EKG without actue ischemic changes -no improvement with morphine, nitro, asa. Given addl 2mg iv morphine -trend trops per cardiology -echo ordered -continue asa 81 mg daily, statin -monitor on tele -cardiology consult #Near syncope -?anxiety -plan as above -head ct negative for acute intracranial abn #Chronic tension headaches -head ct negative for acute intracranial abn -trial imitrex -outpt follow up #SIRS criteria -tachycardic, tachypneic. No infection, no sepsis -suspect anxiety #Non insulin dependent type 2 diabetes -hgb a1c 6.9% -poc glucose, diabetic diet -admelog ss, hold metformin #HLD -statin dvt prophylaxis- lovenox full code Quality Stroke Does the patient have a stroke diagnosis?: No VTE Prior VTE?: No VTE Risk Level:: Medical - moderate - high VTE Device Contraindication: Treatment Not Indicated VTE Drug Contraindication: N/A - Med Ordered
[2023-08-31] MEDS: Metoprolol Succinate ER 50 MG TAB.ER.24H PO (12:23)
[2023-08-31] MEDS: Morphine Sulfate 2 MG/ML CARTRIDGE IVPUSH ×3 (12:23→21:57)
[2023-08-31 12:26] LABS: Appearance Urine Clear; Color Urine Yellow; Glucose Urine UA Negative (Negative); Leukocyte Esterase Urine Negative (Negative); Nitrite Urine Negative (Negative); PH 6.5 (5.0-9.0); Specific Gravity - Urine >= 1.030 (1.005-1.025); UMIC TRIGGER UACC YES; Urine Blood Trace (Negative); Urine Ketones 15 mg/dL (Negative); Urine Protein 30 (1+) mg/dL (Neg-Trace)
--- NOTE | 2023-08-31 12:29 | PC.NURSE ---
CALLED PHARMACY FOR IMITREX NOT IN [facility]
[2023-08-31 12:31] LABS: Bacteria Urine None Seen (None Seen); Hyaline Casts Urine 0-2 /LPF (0-2); Squamous Epithelial Cell Urine 0-2 /HPF (0-2); WBC Urine 0-5 /HPF (0-5)
--- OUTSIDE RECORDS SUMMARY | 2023-08-31 12:33 | XMS_ITS | Patient Health Record ---
Author Organization [facility] Address [address] [place] [address] Care Team Providers Care [employer] Name Role Phone Ayanna L[address], [place] Primary Care Provider Cesar Mcintosh [phone] ALLERGIES Allergen (clinical drug ingredient) Drug/Non Drug Allergy documented on EMR Reaction Allergy Type Onset Date Status Sulfa Unknown Drug Allergy Active sulfamethoxazole / trimethoprim Bactrim Unknown Drug Allergy Active amoxicillin Amoxicillin Unknown Drug Allergy Act indira RESULTS Component Value Reference Range Notes Pathology (Not yet reviewed by provider) Interpretation: Performing Lab:[facility], [address] [place] [id number] Notes/Report: REASON FOR REFERRAL No Information MEDICATIONS Medication SIG (Take, Route, Frequency, Duration) Notes Start Date End Date Status Lovastatin 20mg Acti ve Metoprolol Succinate ER 25 MG Oral for 90 Active SOCIAL HISTORY Sex Assigned At : Social History Observation Description Sex Assigned At Unknown PROBLEMS Problem Type ICD Code Onset Dates Problem Status W/U Status Risk SNOMED Code Notes Problem Colon cancer screening (V76.51) Active confirmed Colon cancer screening (583398969) Problem Encounter for screening for malignant neoplasm of colon (Z12.11) Active confirmed 642479282 Problem Pre-procedural examination (Z01.818) Active confirmed 951513113587956 Problem Diverticulosis of large intestine without perforation or abscess without bleeding (K57.30) Active confirmed Diverticul ar disease of colon (027056477) VITAL SIGNS Temperature 97.3 degrees Fahrenheit 10/24/2022 Blood pressure diastolic 00 mm Hg 10/24/2022 Height 64.5 in 10/24/2022 Blood pressure systolic 000 mm Hg 10/24/2022 Weight 149 lbs 10/24/2022 BMI 25.18 kg/m2 10/24/2022 Encounters Encounter Location Date Provider Diagnosis [facility] [place] Outpatient [address] [place], [place] [id number] 01/15/2023 Cesar Gould Encounter for screen ing colonoscopy Z12.11 ; Colon polyps K63.5 ; Diverticulosis of large intestine without perforation or abscess without bleeding K57.30 and Other hemorrhoids K64.8 [facility] [address] [place] [address] 10/24/2022 Cesar Gould Encounter for screen ing for malignant neoplasm of colon Z12.11 and Pre-procedural examination Z01.818 ASSESSMENTS Encounter Date Diagnosis Assessment Notes Treatment Notes Treatment Clinical Notes 01/15/2023 Encounter for screening colonoscopy (ICD-10 - Z12.11) 01/15/2023 Colon polyps (ICD-10 - K63.5) 10/24/2022 Encounter for screening for malignant neoplasm of colon (ICD-10 - Z12.11) 10/24/2022 Pre-procedural examination (ICD-10 - Z01.818) 01/15/2023 Diverticulosis of large intestine without perforation or abscess without bleeding (ICD-10 - K57.30) 01/15/2023 Other hemorrhoids (ICD-10 - K64.8) PLAN OF TREATMENT Pending Test Test Name Order Date Pathology 01/15/2023 Future Test Test Name Order Date COLONOSCOPY 04/03/2012 COLONOSCOPY 10/24/2022 Insurance Providers Payer Name Payer Address Payer Phone Subscriber Number Group Number Insured Name Patient Relationship to Insured Coverage Start Date Coverage End Date [facility] [address] [place] [address] [id number] IVANIA TRIPATHI Self - patient is the insured MEDICAL (GENERAL) HISTORY Medical History History ICD Code Breast cancer on left- 1997 Denies MO,DM,CVA,Lung disease,renal dise ase Hyperlipidemia Kidney stones-Rx'd with ESW[facility] Irregular heartbeat Negative screening colonoscopy in 05/2012 Surgical History Surgery Date(Month/Year) Right arm surgery-for trauma 2003 JUSTIN 1999 Left-sided lumpectomy with a lymph node dissection for breast cancer-had XRT and 5 yrs of Tamoxifen 1997 Right thumb joint removed
[2023-08-31 13:28] LABS: Troponin-I High Sensitivity 22.6 ng/L (<3.5-17.0)
[2023-08-31 13:51] LABS: Glucose, Whole Blood 129 mg/dL (60-115)
[2023-08-31] MEDS: SUMAtriptan succinate 50 MG TABLET PO (13:57)
[2023-08-31] MEDS: Enoxaparin Sodium 40 MG/0.4 ML SYRINGE SUBCUT (13:57)
[2023-08-31 14:44] LABS: Troponin-I High Sensitivity 21.5 ng/L (<3.5-17.0)
--- NOTE | 2023-08-31 16:49 | PC.NURSE ---
moved pt into a hospital bed for comfort. pt able to stand and pivot to chair in room then transition to hospital bed. when assessing vitals after transition pt was tachypnic iat 26, O2 dropped to 87% she reported that she cant take deep breaths because of her chest pain. CP constant sine arrival to ED. will given PRN for pain. RAHAT Lu made aware of pts hypoxia. started on 2L NC
[2023-08-31 17:32] LABS: Glucose, Whole Blood 191 mg/dL (60-115)
[2023-08-31] MEDS: 0.9 % Sodium Chloride Flush 3 ML SYRINGE IVFLUSH (17:41)
[2023-08-31] MEDS: Insulin Lispro 100 UNIT/ML 3 ML VIAL SUBCUT ×2 (18:38→21:49)
--- NOTE | 2023-08-31 19:51 | PC.NURSE ---
pt ate dinner, now resting comfortably in bed, resp even and unlabored. sinus tachy on monitor. call kulkarni within reach.
[2023-08-31 20:06] LABS: Glucose, Whole Blood 231 mg/dL (60-115)
--- NOTE | 2023-08-31 21:59 | PC.NURSE ---
pt reports substernal cp/sob onset 30 min ago. pt given prn per request, felt relief with last admin. Dr. Frazier notified. repeat ekg. no further orders at this time.
[2023-09-01] VITALS (12 sets, daily range): BP systolic 103–152; BP diastolic 41–66; PULSE 88–120; RESP 16–20; TEMP 36.4–37.9; O2SAT 93–98; BMI 23.1
--- NOTE | 2023-09-01 | ECG_ITS ---
Test Reason : REPEAT Blood Pressure : / mmHG Vent. Rate : 117 BPM Atrial Rate : 117 BPM P-R Int : 126 ms QRS Dur : 068 ms QT Int : 316 ms P-R-T Axes : 068 008 033 degrees QTc Int : 440 ms Sinus tachycardia Nonspecific ST abnormality Abnormal ECG When compared with ECG of 31-AUG-2023 22:00, No significant change was found Referred By: Robert Frazier Electronically Signed By:RAFAEL PASTOR
[2023-09-01] MEDS: Morphine Sulfate 2 MG/ML CARTRIDGE IVPUSH (03:47)
--- NOTE | 2023-09-01 03:53 | PC.NURSE ---
Addendum entered by Ricardo Crowley 09/01/23 03:58: per md also give prn nitro. Original Note: pt reports cp return 12/01, request prn, given per may. aware. vss. pt resting comfortably in bed, call kulkarni within reach.
[2023-09-01] MEDS: Nitroglycerin 0.4 MG TAB.SUBL SUBLINGUAL ×3 (04:13→04:43)
--- NOTE | 2023-09-01 04:35 | PC.NURSE ---
pt reported pain improved to 05/03 after morphine. nitro given per md request. pt reports pain resolved. then pt stated now i dont know i just dont feel too good. reports cp 07/31. md aware. repeat ekg ordered. nitro given per may. phlebotomy at bedside for labs.
[2023-09-01] MEDS: ondansetron HCL 4 MG/2 ML VIAL IVPUSH (04:49)
[2023-09-01 04:56] LABS: MANUAL DIFF FLAG NO
--- NOTE | 2023-09-01 04:57 | PC.NURSE ---
pt reports cp has improved to 05/31 however states i just feel strange. i feel like the pain is different, im sweaty, nauseous. poc 126. vitals as documented. MD aware. pt is axox4 speaking full clear sentences. requesting to go to the bathroom at this time.
[2023-09-01 04:58] LABS: Basophils Percent Auto 0.1 % (0-2); Hematocrit 27.6 % (37.0-47.0); Hemoglobin 9.3 g/dl (12.0-16.0); Imm Gran Abs Auto 0.47 X10*3/uL (0.00-0.03); Imm Gran Pct Auto 4.7 % (0.0-0.4); Lymphocytes Absolute Auto 0.9 X10*3/uL (1.2-4.9); Lymphocytes Percent Auto 8.5 % (20-40); Mean Corpuscular HGB Conc 33.7 g/dl (31.0-35.0); Mean Corpuscular Hemoglobin 28.8 pg (27.0-33.0); Mean Corpuscular Volume 85.4 fL (80.0-98.0); Mean Platelet Volume 9.2 fL (9.4-12.3); Monocytes Absolute Auto 1.1 X10*3/uL (0.1-1.2); Monocytes Percent Auto 10.7 % (2-11); Neutrophils Absolute Auto 7.7 x10*3/uL (2.0-8.3); Platelet Count 181 X10*3/uL (160-400); Red Blood Count 3.23 X10*6/uL (4.20-5.50); White Blood Count 10.1 X10*3/uL (4.8-10.8)
[2023-09-01] MEDS: Acetaminophen 325 MG TABLET 650 MG PO ×2 (05:02→22:57)
[2023-09-01 05:14] LABS: Anion Gap 17 (12-20); Blood Urea Nitrogen 17 mg/dL (9-16); Calcium 9.8 mg/dL (8.4-10.2); Carbon Dioxide 24 mmol/L (22-29); Chloride 98 mmol/L (96-108); Creatinine Clr Calc Pharmacy 55.3; Estimated Glomerular Filt Rate > 60; Glucose Random 119 mg/dL (60-115); Potassium 4.2 mmol/L (3.3-5.1); Sodium 135 mmol/L (135-145)
[2023-09-01 05:20] LABS: Glucose, Whole Blood 126 mg/dL (60-115)
[2023-09-01 05:25] LABS: Troponin-I High Sensitivity 20.3 ng/L (<3.5-17.0)
--- NOTE | 2023-09-01 05:43 | PM.EVENT ---
Event Note Date of Service: 09/01/23 Event Note: Patient with chest discomfort. Ordered EKG and troponin (which is without delta change) Time Spent With Patient Time: Total time managing care of this patient today ____ minutes.
--- NOTE | 2023-09-01 07:00 | CA_ITS ---
Transthoracic Echocardiogram Patient (Last, First, Middle): Jaclyn Looney M Gender: Female Date of : 1950 Age: 73 Procedure Date: 09/01/2023 Procedure Type: Transthoracic Echocardiogram Location: [facility] [place] Height: 165.1 cm Weight: 66.23 kg BSA: 1.73 m2 Heart Rate: 93 bpm BP: 130 / 66 mmHg Professional Fighter: LORENZO Referring MD: Tabitha GIANG Symptoms: chest pain Study Quality: Adequate ECG Rhythm: Sinus Conclusions: - The left ventricular systolic function is normal. The calculated ejection fraction is 70% by biplane method. - No obvious valvular pathology seen on this study. Findings Left Ventricle Normal left ventricular cavity size. There is mildly increased left ventricular wall thickness. The left ventricular systolic function is normal. The calculated ejection fraction is 70% by biplane method. There is no evidence of regional wall motion abnormalities. Diastolic function is normal for age. LV peak GLS -17.3%, under-estimation. Right Ventricle Normal right ventricular cavity size and systolic function. Atria Both atria are normal in size. Aortic Valve There is a normal trileaflet aortic valve. There is no aortic valve stenosis. There is no aortic valve regurgitation. Mitral Valve The mitral valve appears normal. There is mild mitral valve regurgitation. There is no mitral valve stenosis. Pulmonic Valve The pulmonic valve is likely normal. Tricuspid Valve Normal tricuspid valve structure. There is trace tricuspid valve regurgitation. There is no evidence of pulmonary hypertension. Great Vessels The asc aorta is normal in size. Venous The inferior vena cava is normal in size and collapses greater than 50% with inspiration. Pericardium/Pleural There is a trivial pericardial effusion. Prior Study Comparison No significant change compared to prior study dated: 10/14/2007. Recommendations, Care & Conclusions No obvious valvular pathology seen on this study. Measurements 2D Linear Measurements IVSd: 1.09 0.6-0.9/0.6-1.0 cm LVIDd: 3.70 3.9-5.3/4.2-5.9 cm LVIDd Index: 2.14 2.4-3.2/2.2-3.1 cm/m2 LVIDs: 2.28 2.0-3.6 cm LVPWd: 1.25 0.7-1.1 cm LA Diam: 3.10 2.7-3.8/3.0-4.0 cm LAIDs Index: 1.79 1.5-2.3 cm/m2 LV Mass: 176.48 67-162/88-224 g LV Mass Index: 102.01 43-95/49-115 g/m2 LVOT Diam: 1.80 3.0+(-)1.3 cm 2D Systolic Function EF 4C: 69.60 >55% EF 2C: 70.50 >55% EF BiP: 69.90 >55% Mitral Valve MV Pk E: 0.95 MV PK A: 1.05 MV Decel Time: 259.00 E/A: 0.90 E'Lateral: 9.90 E'Medial: 8.70 E/E' Med: 10.90 E/E' Lat: 9.60 PHT: 76.00 MVA PHT: 2.89 Decel Dubois: 3.66 Aortic Valve AoV Pk Deven: 1.83 AoV Mn Deven: 1.24 AoV VTI: 0.36 AoV Pk Grad: 13.00 Aov Mn Grad: 7.00 TOMASZ Cont.VTI: 2.14 LVOT LVOT Pk Deven: 1.57 LVOT Mn Deven: 1.14 LVOT VTI: 0.31 LVOT Pk Grad: 10.00 LVOT Mn Grad: 6.00 LVOT Diam: 1.80 LVOT Area: 2.54 Diastolic Function MV Pk E: 0.95 MV Pk A: 1.05 E/A: 0.90 E'Medial: 8.70 E/E' Med: 10.90 E' Laterial: 9.90 E/E' Lat: 9.60 Right Ventricle TAPSE (mm): 28.20 TVS' Deven: 14.70 Tricuspid Valve TR Pk Deven: 2.06 TR Pk Grad: 17.00 RA Press: 3.00 RVSP: 20.00 Great Vessels Aorta Sinus of Valsalva: 3.30 2.0-3.5 cm Ao Asc: 3.60 2.1-3.4 cm Pulmonary Valve PV Pk Deven: 1.05 Peak PV Grad: 4.00 Updated in Other Vendor System with Status of Final Edwin Ibarra MD electronically signed on 09/01/2023 12:37:37 PM with status of Final
[2023-09-01 07:15] LABS: Glucose, Whole Blood 125 mg/dL (60-115)
--- NOTE | 2023-09-01 07:49 | PM.CNCAR ---
History of Present Illness History of Present Illness Date of Service: 09/01/23 Chief complaint: chest pain Narrative: This is a cardiology consultation regarding chest pain and tachycardia. Patient denies any history of coronary disease or cardiomyopathy or in fact any cardiac issues at all. She states that for the last couple of weeks or so, she has been having episodes of palpitations. She feels as though her heart is racing. She also has a discomfort in the chest and that goes to the back. However, not clearly exertional. When she walks she does feel that heart is going faster. Some lightheadedness. Apparently new diagnosis of diabetes and started on metformin. We are asked to assess her for further evaluation from cardiac. Review of Systems Review of Systems: Yes all other systems are reviewed and are negative Constitutional: Constitutional: Reports as per HPI and Reports no additional constitutional complaints Eyes: Eyes: Reports as per HPI and Denies no additional eye complaints ENT: Denies system reviewed and no additional complaints, except as documented and Reports as per HPI Cardiovascular: Cardiovascular: Reports as per HPI, Reports no additional cardiovascular complaints, Denies acrocyanosis, Denies cool extremities, Denies chest pain, Denies leg edema, Reports lightheadedness, Reports palpitations and Denies dyspnea Respiratory: Respiratory: Reports as per HPI, Denies no additional respiratory complaints and Denies dyspnea Gastrointestinal: Gastrointestinal: Reports as per HPI and Denies no additional gastrointestinal complaints Genitourinary: Genitourinary: Reports as per HPI Musculoskeletal: Musculoskeletal: Reports no additional musculoskeletal complaints and Reports as per HPI Integumentary/Breasts: Skin/Breast: Reports system reviewed and no additional complaints, except as docu Neurologic: Reports system reviewed and no additional complaints, except as documented and Reports as per HPI Psychiatric: Psychiatric: Reports no additional psychiatric complaints and Reports as per HPI Endocrine: Endocrine: Reports no additional endocrine complaints, Reports as per HPI and Reports palpitations Hematologic/Lymphatic: Hematologic/Lymphatic: Reports no additional hematologic/lymphatic complaints and Reports as per HPI Allergic/Immunologic: Allergic/Immunologic: Reports no additional allergic/immunologic complaints and Reports as per HPI [facility] Past Medical History Medical History (Updated 09/01/23 @ 09:46 by Edwin Ibarra MD) Chest pain Type 2 diabetes mellitus with hyperglycemia, without long-term current use of insulin Irregular heart beat Kidney stone Hyperlipidemia Cancer of breast Family History Family History (Updated 08/19/23 @ 09:54 by Li Whitehead MD) Mother Tuberculosis Brother Myocardial infarction, Onset Age: 55 Skin cancer Father Skin cancer Surgical History Surgical History H/O colonoscopy History of lumpectomy of left breast Hx of thumb surgery S/P JUSTIN (total abdominal hysterectomy) History of surgery on arm Social History Social History Housing: House Alcohol intake: never Patient Tobacco Use Status: Current everyday Tobacco user Tobacco use type: Cigarette Cigarettes Per Day: 3 Smoked in Last 30 Days: No e-Cigarette/Vaping Use: Never Used Second Hand Smoke Exposure: No Use of substances other than those prescribed or required for medical reasons: No Advance Directives: No Advance Directives Information Provided: No Do you have a plan to hurt others: No Plan Nutrition Risks: No Nutritional Risk service: No Current occupational status: retired Cognitive needs: No Hearing needs: No Vision needs: Yes Meds Allergies Allergy/AdvReac Type Severity Reaction Status Date / Time sulfamethoxazole Allergy Intermediate HIVES Verified 08/31/23 01:50 [From Bactrim] trimethoprim [From Bactrim] Allergy Intermediate HIVES Verified 08/31/23 01:50 amoxicillin [Amoxicillin] Allergy Mild RASH Verified 08/31/23 01:50 Sulfa (Sulfonamide Allergy Unknown Hives Verified 08/31/23 01:50 Antibiotics) Active Medications: Current Medications Acetaminophen (Acetaminophen 325 Mg Tablet) 650 mg PO Q6H PRN PRN Reason: Pain, Mild (Pain Scale 1-3) Last Admin: 09/01/23 05:02 Dose: 650 mg Aspirin (Aspirin Enteric Coated 81 Mg Tablet.Dr) 81 mg PO DAILY [facility] Enoxaparin Sodium (Enoxaparin Sodium 40 Mg/0.4 Ml Syringe) 40 mg SUBCUT Q24H JORGE Last Admin: 08/31/23 13:57 Dose: 40 mg Glucose (Glucose Gel 15 Gm Gel..Gram.) 15 gm PO Q15M PRN; Protocol PRN Reason: per Hypoglycemia Standing Ord. Dextrose (D10) 250 mls @ 750 mls/hr IV Q15M PRN; Protocol PRN Reason: per Hypoglycemia Standing Ord. Insulin Human Lispro (Insulin Lispro 100 Unit/Ml 3 Ml Vial) 0 unit SUBCUT QIDACHS [facility]; Protocol Last Admin: 09/01/23 07:12 Dose: Not Given Magnesium Hydroxide (Milk Of Magnesia 30 Ml Oral.Susp) 30 ml PO DAILY PRN PRN Reason: Constipation Metoprolol Succinate (Metoprolol Succinate Er 50 Mg Tab.Er.24h) 50 mg PO DAILY [facility]; Protocol Morphine Sulfate (Morphine Sulfate 2 Mg/Ml Cartridge) 2 mg IVPUSH Q4H PRN; Protocol PRN Reason: Pain, Severe (Pain Scale 7-10) Last Admin: 09/01/23 03:47 Dose: 2 mg Multivitamins/Vitamin C (Multivitamin Tablet) 1 tab PO DAILY [facility] Nitroglycerin (Nitroglycerin 0.4 Mg Tab.Subl) 0.4 mg SUBLINGUAL Q5MX3 PRN PRN Reason: Chest Pain Last Admin: 09/01/23 04:43 Dose: 0.4 mg Ondansetron HCl (Ondansetron Hcl 4 Mg/2 Ml Vial) 4 mg IVPUSH Q8H PRN PRN Reason: Nausea and Vomiting Last Admin: 09/01/23 04:49 Dose: 4 mg Pravastatin Sodium (Pravastatin Sodium 20 Mg Tablet) 20 mg PO DAILY [facility] Sodium Chloride (0.9 % Sodium Chloride Flush 3 Ml Syringe) 3 ml IVFLUSH QSHIFT [facility] Last Admin: 09/01/23 01:24 Dose: Not Given Vitamin D (Cholecalciferol (Vitamin D3) 25 Mcg Tablet) 25 mcg PO DAILY [facility] Home Medications ?Medication ?Instructions ?Recorded ?Confirmed ?Last Taken ?Type lovastatin 20 mg tablet 20 mg PO DAILY 01/13/23 08/31/23 08/30/23 History metoprolol succinate 50 mg 50 mg PO DAILY 08/19/23 08/31/23 08/30/23 History tablet,extended release 24 hr cholecalciferol (vitamin D3) 25 25 mcg PO DAILY 08/31/23 08/31/23 08/30/23 History mcg (1,000 unit) tablet (Vitamin D3) multivitamin 1 tab PO DAILY 08/31/23 08/31/23 08/30/23 History Physical Exam Vital Signs: Vital Signs: Last Vital Signs Temp 98.8 F 09/01/23 07:12 Pulse 94 09/01/23 07:09 Resp 18 09/01/23 07:09 BP 103/43 L 09/01/23 07:09 Pulse Ox 98 09/01/23 07:09 O2 Del Method Room Air 09/01/23 07:09 O2 Flow Rate 2 09/01/23 04:59 BMI result Body Mass Index 24.4 Const: General: comfortable and no acute distress Orientation/consciousness: patient oriented x3 HEENT: Other: Unremarkable Head: Yes normal to inspection Neck: Neck: Yes normal visual inspection Chest: Chest palpation & inspection: normal inspection of the chest Resp: Auscultation: clear to auscultation bilaterally Cardio: Palpation: normal PMI Heart sounds: S1 normal heart sound present, S2 normal heart sound present, no gallops, no murmurs and no rubs GI: Palpation (GI): Soft to palpation Back/Spine/Pelvis: Other: unremarkable Skin: General skin exam: no rashes or lesions noted Neuro: General: patient oriented x3 Extrem: General: Yes normal to inspection Psych: Mental Status: mental status grossly normal Objective Labs and Meds 09/01/23 04:39 09/01/23 04:39 Lab results: Laboratory Results - last 24 hr 08/31/23 08/31/23 08/31/23 02:15 08:08 08:13 WBC 11.0 H RBC 3.51 L Hgb 10.3 L Hct 29.9 L MCV 85.2 MCH 29.3 MCHC 34.4 RDW 13.8 Plt Count 213 D MPV 9.2 L Immature Gran % (Auto) Neut % (Auto) Lymph % (Auto) [place] % (Auto) Eos % (Auto) Baso % (Auto) Lymph # (Auto) [place] # (Auto) Eos # (Auto) Baso # (Auto) Abs Immat Gran (auto) Absolute Neuts (auto) Absolute Nucleated RBC 0.000 Nucleated RBC % (auto) 0.0 Neutrophils % (Manual) 83 H Band Neutrophils % 2 L Lymphocytes % (Manual) 5 L Atypical Lymphs % (Man) 2 Monocytes % (Manual) 6 Eosinophils % (Manual) 1 Metamyelocytes % 1 Abs Neuts (Manual) 9.4 H Lymphocytes # (Manual) 0.6 L Atyp Lymphs # (Manual) 0.2 Monocytes # (Manual) 0.7 Eosinophils # (Manual) 0.1 Metamyelocytes # 0.1 Toxic Vacuolation PRESENT Platelet Estimate NORMAL Plt Morphology Comment NORMAL RBC Morphology NORMAL Hold Purple Top PT 13.0 INR 1.1 D-Dimer High Sensitivty 2460 Sodium Potassium Chloride Carbon Dioxide Anion Gap BUN Creatinine Estim Creat Clear Calc Estimated GFR POC Glucose 133 H Random Glucose Calcium Troponin I High Sens 24.8 H Urine Color Urine Appearance Urine pH Ur Specific [place] Urine Protein Urine Glucose (UA) Urine Ketones Urine Blood Urine Nitrite Ur Leukocyte Esterase Urine RBC Urine WBC Ur Squamous Epith Cells Urine Bacteria Hyaline Casts Stool Occult Blood 08/31/23 08/31/23 08/31/23 08:23 12:14 12:47 WBC RBC Hgb Hct MCV MCH MCHC RDW Plt Count MPV Immature Gran % (Auto) Neut % (Auto) Lymph % (Auto) [place] % (Auto) Eos % (Auto) Baso % (Auto) Lymph # (Auto) [place] # (Auto) Eos # (Auto) Baso # (Auto) Abs Immat Gran (auto) Absolute Neuts (auto) Absolute Nucleated RBC Nucleated RBC % (auto) Neutrophils % (Manual) Band Neutrophils % Lymphocytes % (Manual) Atypical Lymphs % (Man) Monocytes % (Manual) Eosinophils % (Manual) Metamyelocytes % Abs Neuts (Manual) Lymphocytes # (Manual) Atyp Lymphs # (Manual) Monocytes # (Manual) Eosinophils # (Manual) Metamyelocytes # Toxic Vacuolation Platelet Estimate Plt Morphology Comment RBC Morphology Hold Purple Top SEE NOTE PT INR D-Dimer High Sensitivty Sodium Potassium Chloride Carbon Dioxide Anion Gap BUN Creatinine Estim Creat Clear Calc Estimated GFR POC Glucose Random Glucose Calcium Troponin I High Sens 22.6 H Urine Color Yellow Urine Appearance Clear Urine pH 6.5 Ur Specific [place] >= 1.030 H Urine Protein 30 (1+) H Urine Glucose (UA) Negative Urine Ketones 15 Urine Blood Trace H Urine Nitrite Negative Ur Leukocyte Esterase Negative Urine RBC 3-5 H Urine WBC 0-5 Ur Squamous Epith Cells 0-2 Urine Bacteria None Seen Hyaline Casts 0-2 Stool Occult Blood NEGATIVE 08/31/23 08/31/23 08/31/23 13:39 14:16 17:28 WBC RBC Hgb Hct MCV MCH MCHC RDW Plt Count MPV Immature Gran % (Auto) Neut % (Auto) Lymph % (Auto) [place] % (Auto) Eos % (Auto) Baso % (Auto) Lymph # (Auto) [place] # (Auto) Eos # (Auto) Baso # (Auto) Abs Immat Gran (auto) Absolute Neuts (auto) Absolute Nucleated RBC Nucleated RBC % (auto) Neutrophils % (Manual) Band Neutrophils % Lymphocytes % (Manual) Atypical Lymphs % (Man) Monocytes % (Manual) Eosinophils % (Manual) Metamyelocytes % Abs Neuts (Manual) Lymphocytes # (Manual) Atyp Lymphs # (Manual) Monocytes # (Manual) Eosinophils # (Manual) Metamyelocytes # Toxic Vacuolation Platelet Estimate Plt Morphology Comment RBC Morphology Hold Purple Top PT INR D-Dimer High Sensitivty Sodium Potassium Chloride Carbon Dioxide Anion Gap BUN Creatinine Estim Creat Clear Calc Estimated GFR POC Glucose 129 H 191 H Random Glucose Calcium Troponin I High Sens 21.5 H Urine Color Urine Appearance Urine pH Ur Specific [place] Urine Protein Urine Glucose (UA) Urine Ketones Urine Blood Urine Nitrite Ur Leukocyte Esterase Urine RBC Urine WBC Ur Squamous Epith Cells Urine Bacteria Hyaline Casts Stool Occult Blood 08/31/23 09/01/23 09/01/23 20:02 04:39 04:57 WBC 10.1 RBC 3.23 L Hgb 9.3 L Hct 27.6 L MCV 85.4 MCH 28.8 MCHC 33.7 RDW 14.0 Plt Count 181 MPV 9.2 L Immature Gran % (Auto) 4.7 H Neut % (Auto) 76.0 H Lymph % (Auto) 8.5 L [place] % (Auto) 10.7 Eos % (Auto) 0.0 Baso % (Auto) 0.1 Lymph # (Auto) 0.9 L [place] # (Auto) 1.1 Eos # (Auto) 0.0 Baso # (Auto) 0.0 Abs Immat Gran (auto) 0.47 H Absolute Neuts (auto) 7.7 Absolute Nucleated RBC 0.000 Nucleated RBC % (auto) 0.0 Neutrophils % (Manual) Band Neutrophils % Lymphocytes % (Manual) Atypical Lymphs % (Man) Monocytes % (Manual) Eosinophils % (Manual) Metamyelocytes % Abs Neuts (Manual) Lymphocytes # (Manual) Atyp Lymphs # (Manual) Monocytes # (Manual) Eosinophils # (Manual) Metamyelocytes # Toxic Vacuolation Platelet Estimate Plt Morphology Comment RBC Morphology Hold Purple Top PT INR D-Dimer High Sensitivty Sodium 135 Potassium 4.2 Chloride 98 Carbon Dioxide 24 Anion Gap 17 BUN 17 H Creatinine 0.84 Estim Creat Clear Calc 55.3 Estimated GFR > 60 POC Glucose 231 H 126 H Random Glucose 119 H Calcium 9.8 D Troponin I High Sens 20.3 H Urine Color Urine Appearance Urine pH Ur Specific [place] Urine Protein Urine Glucose (UA) Urine Ketones Urine Blood Urine Nitrite Ur Leukocyte Esterase Urine RBC Urine WBC Ur Squamous Epith Cells Urine Bacteria Hyaline Casts Stool Occult Blood 09/01/23 07:11 WBC RBC Hgb Hct MCV MCH MCHC RDW Plt Count MPV Immature Gran % (Auto) Neut % (Auto) Lymph % (Auto) [place] % (Auto) Eos % (Auto) Baso % (Auto) Lymph # (Auto) [place] # (Auto) Eos # (Auto) Baso # (Auto) Abs Immat Gran (auto) Absolute Neuts (auto) Absolute Nucleated RBC Nucleated RBC % (auto) Neutrophils % (Manual) Band Neutrophils % Lymphocytes % (Manual) Atypical Lymphs % (Man) Monocytes % (Manual) Eosinophils % (Manual) Metamyelocytes % Abs Neuts (Manual) Lymphocytes # (Manual) Atyp Lymphs # (Manual) Monocytes # (Manual) Eosinophils # (Manual) Metamyelocytes # Toxic Vacuolation Platelet Estimate Plt Morphology Comment RBC Morphology Hold Purple Top PT INR D-Dimer High Sensitivty Sodium Potassium Chloride Carbon Dioxide Anion Gap BUN Creatinine Estim Creat Clear Calc Estimated GFR POC Glucose 125 H Random Glucose Calcium Troponin I High Sens Urine Color Urine Appearance Urine pH Ur Specific [place] Urine Protein Urine Glucose (UA) Urine Ketones Urine Blood Urine Nitrite Ur Leukocyte Esterase Urine RBC Urine WBC Ur Squamous Epith Cells Urine Bacteria Hyaline Casts Stool Occult Blood Imaging Radiologist's impression: Impressions Head CT 08/31/23 06:42 IMPRESSION: No acute intracranial abnormality including hemorrhage, mass effect, hydrocephalus, or acute territorial edematous infarction. Chest CTA 08/31/23 09:21 IMPRESSION: 1. No pulmonary emboli. 2. Pleural parenchymal irregularity along the anterior/anterolateral aspect of the left upper lobe with punctate calcifications, unclear etiology though may reflect infectious/inflammatory etiology versus fibrotic changes versus sequela of prior surgery/pleurodesis or radiation. Correlation with past medical history. 3. Bilateral pulmonary nodules the largest measuring up to 3 mm. Follow-up as per Fleischner criteria. 4. Decreased hepatic attenuation suggesting hepatic steatosis. 5. Small hiatal hernia. Various management parameters for solitary pulmonary nodules are in the literature. According to the Fleischner Society, recommendations for pulmonary nodules are as follows: According to the UPDATED 2017 Fleischner Society recommendations, the advised follow-up imaging for solid nodules < 6 mm is: LOW RISK PATIENT: No routine follow-up. Assessment and Plan (1) Tachycardia: Status: Acute (2) Chest pain: Status: Acute (3) Anemia: Status: Acute Plan EKG with sinus tachycardia at 117/Min with nonspecific ST-T changes. Not seen in the EKG from 08/11/2023. At that time, heart rate was 75/Min. Labs reveal hemoglobin 9.3. Yesterday, it was 10.3. In July it was 12. In 2018, it was 14+. High sensitivity troponins are mildly elevated but flat. CT chest shows no evidence of pulmonary emboli. Left upper lobe punctate calcifications of unclear etiology. Pulmonary nodules. Hepatic steatosis. Overall, uncertain etiology for the tachycardia/chest pain. She also has anemia of unknown cause and Hemoccult is negative. Other hematological parameters were also abnormal. From cardiac, we will start with an echocardiogram. Consider Hematology consultation as well. Discussed with Dr. Alves. Procedures Date of Service Date of Service: 09/01/23
[2023-09-01] MEDS: 0.9 % Sodium Chloride Flush 3 ML SYRINGE IVFLUSH ×3 (08:50→22:55)
[2023-09-01] MEDS: Metoprolol Succinate ER 50 MG TAB.ER.24H PO (10:13)
[2023-09-01] MEDS: Aspirin Enteric Coated 81 MG TABLET.DR PO (10:13)
[2023-09-01] MEDS: Cholecalciferol (Vitamin D3) 25 MCG TABLET PO (10:14)
[2023-09-01] MEDS: Multivitamin TABLET 1 TAB PO (10:14)
--- NOTE | 2023-09-01 10:14 | MHC.CM.PN ---
CM met with Patient at bedside and addressed SARAH with her, providing Patient with the original and a copy has been placed on the chart. 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 Home/self care is the goal and CM has initiated and will follow for dc Planning. Daughter/Isabel is the HCP and the PCP is Dr. Li Keller.
[2023-09-01 11:19] LABS: Glucose, Whole Blood 163 mg/dL (60-115)
[2023-09-01 12:07] LABS: Thyroid Stimulating Hormone 0.42 uIU/mL (0.32-4.0)
[2023-09-01] MEDS: Insulin Lispro 100 UNIT/ML 3 ML VIAL SUBCUT ×3 (12:14→22:54)
--- NOTE | 2023-09-01 12:14 | HO.PM.IMPN ---
Subjective Subjective Date of Service: 09/01/23 Interval History: f/u chest pain, tachycardia, interval history: persistent intermittent tachycardia, troponin flat Physical Exam Vital Signs: Vital Signs: Last Vital Signs Temp 98.9 F 09/01/23 11:23 Pulse 88 09/01/23 11:23 Resp 18 09/01/23 11:23 BP 130/66 09/01/23 11:23 Pulse Ox 96 09/01/23 11:23 O2 Del Method Nasal Cannula 09/01/23 11:23 O2 Flow Rate 2 09/01/23 11:23 BMI result Body Mass Index 23.1 General: AO X 3, no acute distress Resp: CTA bilateral CVS: S1,S2,RRR GI: +BS, NT, no distention Skin: No rash Neuro: motor grossly intact Psych: appropriate affect Objective Data Active Medications Acetaminophen (Acetaminophen 325 Mg Tablet) 650 mg PO Q6H PRN PRN Reason: Pain, Mild (Pain Scale 1-3) Last Admin: 09/01/23 05:02 Dose: 650 mg Documented By: ANITHA Aspirin (Aspirin Enteric Coated 81 Mg Tablet.Dr) 81 mg PO DAILY [facility] Last Admin: 09/01/23 10:13 Dose: 81 mg Documented By: FRANKY Enoxaparin Sodium (Enoxaparin Sodium 40 Mg/0.4 Ml Syringe) 40 mg SUBCUT Q24H [facility] Last Admin: 08/31/23 13:57 Dose: 40 mg Documented By: CHRISTINE Glucose (Glucose Gel 15 Gm Gel..Gram.) 15 gm PO Q15M PRN; Protocol PRN Reason: per Hypoglycemia Standing Ord. Dextrose (D10) 250 mls @ 750 mls/hr IV Q15M PRN; Protocol PRN Reason: per Hypoglycemia Standing Ord. Insulin Human Lispro (Insulin Lispro 100 Unit/Ml 3 Ml Vial) 0 unit SUBCUT QIDACHS [facility]; Protocol Last Admin: 09/01/23 07:12 Dose: Not Given Documented By: GUERDA Non-Admin Reason: No Insulin Coverage Magnesium Hydroxide (Milk Of Magnesia 30 Ml Oral.Susp) 30 ml PO DAILY PRN PRN Reason: Constipation Metoprolol Succinate (Metoprolol Succinate Er 50 Mg Tab.Er.24h) 50 mg PO DAILY [facility]; Protocol Last Admin: 09/01/23 10:13 Dose: 50 mg Documented By: FRANKY Morphine Sulfate (Morphine Sulfate 2 Mg/Ml Cartridge) 2 mg IVPUSH Q4H PRN; Protocol PRN Reason: Pain, Severe (Pain Scale 7-10) Last Admin: 09/01/23 03:47 Dose: 2 mg Documented By: ANITHA Multivitamins/Vitamin C (Multivitamin Tablet) 1 tab PO DAILY [facility] Last Admin: 09/01/23 10:14 Dose: 1 tab Documented By: FRANKY Nitroglycerin (Nitroglycerin 0.4 Mg Tab.Subl) 0.4 mg SUBLINGUAL Q5MX3 PRN PRN Reason: Chest Pain Last Admin: 09/01/23 04:43 Dose: 0.4 mg Documented By: ANITHA Ondansetron HCl (Ondansetron Hcl 4 Mg/2 Ml Vial) 4 mg IVPUSH Q8H PRN PRN Reason: Nausea and Vomiting Last Admin: 09/01/23 04:49 Dose: 4 mg Documented By: ANITHA Pravastatin Sodium (Pravastatin Sodium 20 Mg Tablet) 20 mg PO DAILY [facility] Sodium Chloride (0.9 % Sodium Chloride Flush 3 Ml Syringe) 3 ml IVFLUSH QSHIFT [facility] Last Admin: 09/01/23 08:50 Dose: 3 ml Documented By: GUERDA Vitamin D (Cholecalciferol (Vitamin D3) 25 Mcg Tablet) 25 mcg PO DAILY [facility] Last Admin: 09/01/23 10:14 Dose: 25 mcg Documented By: FRANKY Labs 09/01/23 04:39 09/01/23 04:39 Labs: Laboratory Results - last 24 hr 08/31/23 08/31/23 08/31/23 12:14 12:47 13:39 MCV MCH MCHC RDW Plt Count MPV Immature Gran % (Auto) Neut % (Auto) Lymph % (Auto) [place] % (Auto) Eos % (Auto) Baso % (Auto) Lymph # (Auto) [place] # (Auto) Eos # (Auto) Baso # (Auto) Abs Immat Gran (auto) Absolute Neuts (auto) Absolute Nucleated RBC Nucleated RBC % (auto) Hold Purple Top SEE NOTE Anion Gap Estim Creat Clear Calc Estimated GFR POC Glucose 129 H Random Glucose Calcium Troponin I High Sens 22.6 H TSH Urine Color Yellow Urine Appearance Clear Urine pH 6.5 Ur Specific [place] >= 1.030 H Urine Protein 30 (1+) H Urine Glucose (UA) Negative Urine Ketones 15 Urine Blood Trace H Urine Nitrite Negative Ur Leukocyte Esterase Negative Urine RBC 3-5 H Urine WBC 0-5 Ur Squamous Epith Cells 0-2 Urine Bacteria None Seen Hyaline Casts 0-2 08/31/23 08/31/23 08/31/23 14:16 17:28 20:02 MCV MCH MCHC RDW Plt Count MPV Immature Gran % (Auto) Neut % (Auto) Lymph % (Auto) [place] % (Auto) Eos % (Auto) Baso % (Auto) Lymph # (Auto) [place] # (Auto) Eos # (Auto) Baso # (Auto) Abs Immat Gran (auto) Absolute Neuts (auto) Absolute Nucleated RBC Nucleated RBC % (auto) Hold Purple Top Anion Gap Estim Creat Clear Calc Estimated GFR POC Glucose 191 H 231 H Random Glucose Calcium Troponin I High Sens 21.5 H TSH Urine Color Urine Appearance Urine pH Ur Specific [place] Urine Protein Urine Glucose (UA) Urine Ketones Urine Blood Urine Nitrite Ur Leukocyte Esterase Urine RBC Urine WBC Ur Squamous Epith Cells Urine Bacteria Hyaline Casts 09/01/23 09/01/23 09/01/23 04:39 04:57 07:11 MCV 85.4 MCH 28.8 MCHC 33.7 RDW 14.0 Plt Count 181 MPV 9.2 L Immature Gran % (Auto) 4.7 H Neut % (Auto) 76.0 H Lymph % (Auto) 8.5 L [place] % (Auto) 10.7 Eos % (Auto) 0.0 Baso % (Auto) 0.1 Lymph # (Auto) 0.9 L [place] # (Auto) 1.1 Eos # (Auto) 0.0 Baso # (Auto) 0.0 Abs Immat Gran (auto) 0.47 H Absolute Neuts (auto) 7.7 Absolute Nucleated RBC 0.000 Nucleated RBC % (auto) 0.0 Hold Purple Top Anion Gap 17 Estim Creat Clear Calc 55.3 Estimated GFR > 60 POC Glucose 126 H 125 H Random Glucose 119 H Calcium 9.8 D Troponin I High Sens 20.3 H TSH 0.42 Urine Color Urine Appearance Urine pH Ur Specific [place] Urine Protein Urine Glucose (UA) Urine Ketones Urine Blood Urine Nitrite Ur Leukocyte Esterase Urine RBC Urine WBC Ur Squamous Epith Cells Urine Bacteria Hyaline Casts 09/01/23 11:14 MCV MCH MCHC RDW Plt Count MPV Immature Gran % (Auto) Neut % (Auto) Lymph % (Auto) [place] % (Auto) Eos % (Auto) Baso % (Auto) Lymph # (Auto) [place] # (Auto) Eos # (Auto) Baso # (Auto) Abs Immat Gran (auto) Absolute Neuts (auto) Absolute Nucleated RBC Nucleated RBC % (auto) Hold Purple Top Anion Gap Estim Creat Clear Calc Estimated GFR POC Glucose 163 H Random Glucose Calcium Troponin I High Sens TSH Urine Color Urine Appearance Urine pH Ur Specific [place] Urine Protein Urine Glucose (UA) Urine Ketones Urine Blood Urine Nitrite Ur Leukocyte Esterase Urine RBC Urine WBC Ur Squamous Epith Cells Urine Bacteria Hyaline Casts Assessment and Plan (1) Anemia: Status: Acute (2) Chest pain: Status: Acute (3) Tachycardia: Status: Acute Plan 73 year old female with history of type 2 diabetes, hld, hx breast cancer 1990s to be observed for chest pain #Chest pain- seems atypical, troponin i mildly high but flat -initial trop 17-->24-->20. EKG without actue ischemic changes, negative PE bt CTA -cardiology input noted, echo, continue ASA, statin for now #Tachycardia--likely relaed to anxiety--resolved, TSH is normal #Near syncope -?anxiety -plan as above -head ct negative for acute intracranial abn #Anemia--with abnormal other cell lines, get heme consult #Chronic tension headaches -head ct negative for acute intracranial abn -trial imitrex -outpt follow up #SIRS criteria -tachycardic, tachypneic. No infection, no sepsis -suspect anxiety--tachycardia resolvedl #Non insulin dependent type 2 diabetes -hgb a1c 6.9% -poc glucose, diabetic diet -admelog ss, hold metformin #HLD -statin dvt prophylaxis- lovenox full code Quality Stroke Does the patient have a stroke diagnosis?: No VTE Prior VTE?: No VTE Risk Level:: Medical - moderate - high VTE Device Contraindication: Treatment Not Indicated VTE Drug Contraindication: N/A - Med Ordered
[2023-09-01] MEDS: Enoxaparin Sodium 40 MG/0.4 ML SYRINGE SUBCUT (12:15)
[2023-09-01 15:48] LABS: Glucose, Whole Blood 166 mg/dL (60-115)
[2023-09-01 21:02] LABS: Glucose, Whole Blood 237 mg/dL (60-115)
[2023-09-02] VITALS (12 sets, daily range): BP systolic 119–151; BP diastolic 52–72; PULSE 93–122; RESP 16–20; TEMP 36.4–37.4; O2SAT 93–98
[2023-09-02 07:20] LABS: Glucose, Whole Blood 91 mg/dL (60-115)
[2023-09-02 07:26] LABS: Immature Retic Fraction 15.3 % (3.0-15.9); Retic HGB Equivalent 29.6 pg (30.0-35.0); Reticulocyte Percent 0.9 % (0.5-1.8); Reticulocytes Absolute 0.029 X10*6/uL (0.026-0.095)
[2023-09-02 07:54] LABS: Alanine Aminotransferase 58 U/L (0-31); Albumin Level 2.9 g/dL (3.5-5.0); Alkaline Phosphatase 356 U/L (39-117); Aspartate Amino Transferase 71 U/L (5-31); Bilirubin Direct 0.4 mg/dL (0.0-0.5); Bilirubin Total 0.9 mg/dL (0.0-1.0); Iron 28 mcg/dL (30-160); Lactate Dehydrogenase 1150 U/L (122-220); Percent Iron Saturation 21 % (15-50); Total Iron Binding Capacity 135 mcg/dL (228-428); Total Protein 6.1 g/dL (6.5-8.0); Unsaturated Iron Binding 107 ug/dL
[2023-09-02 08:20] LABS: Ferritin > 1676 ng/mL (10-250)
[2023-09-02 08:24] LABS: Folate 12.6 ng/mL (> or = 4.0); Vitamin B12 569 pg/mL (200-900)
[2023-09-02] MEDS: Metoprolol Succinate ER 50 MG TAB.ER.24H PO (08:41)
[2023-09-02] MEDS: 0.9 % Sodium Chloride Flush 3 ML SYRINGE IVFLUSH ×3 (08:42→21:47)
[2023-09-02] MEDS: Multivitamin TABLET 1 TAB PO (08:42)
[2023-09-02] MEDS: Cholecalciferol (Vitamin D3) 25 MCG TABLET PO (08:42)
[2023-09-02] MEDS: Aspirin Enteric Coated 81 MG TABLET.DR PO (08:42)
[2023-09-02 08:49] LABS: Hematocrit 28.4 % (37.0-47.0); Hemoglobin 9.7 g/dl (12.0-16.0); Mean Corpuscular HGB Conc 34.2 g/dl (31.0-35.0); Mean Corpuscular Hemoglobin 28.9 pg (27.0-33.0); Mean Corpuscular Volume 84.5 fL (80.0-98.0); Mean Platelet Volume 9.6 fL (9.4-12.3); Platelet Count 150 X10*3/uL (160-400); Red Blood Count 3.36 X10*6/uL (4.20-5.50); Red Cell Distribution Width 14.1 % (11.0-16.0); White Blood Count 7.6 X10*3/uL (4.8-10.8)
[2023-09-02 09:13] LABS: Anion Gap 16 (12-20); Blood Urea Nitrogen 20 mg/dL (9-16); Calcium 9.9 mg/dL (8.4-10.2); Carbon Dioxide 28 mmol/L (22-29); Chloride 98 mmol/L (96-108); Creatinine Clr Calc Pharmacy 57.3; Estimated Glomerular Filt Rate > 60; Glucose Random 113 mg/dL (60-115); Potassium 4.2 mmol/L (3.3-5.1); Sodium 138 mmol/L (135-145)
[2023-09-02 09:43] LABS: Band Neutrophils Percent 5 % (3-5); Lymphocytes Absolute Manual 0.2 X10*3/uL (1.2-4.9); Lymphocytes Percent Manual 3 % (20-40); Metamyelocytes Absolute 0.1 X10*3/uL; Metamyelocytes Percent 1 %; Monocytes Absolute Manual 0.3 X10*3/uL (0.1-1.2); Monocytes Percent Manual 4 % (2-11); Neutrophils Percent Manual 87 % (45-73)
[2023-09-02 09:44] LABS: Platelet Estimate SLIGHTLY DECREASED (NORMAL); Platelet Morphology Comment NORMAL; RBC Morphology NORMAL
--- NOTE | 2023-09-02 09:57 | PM.PNCARD ---
Subjective Subjective Date of Service: 09/02/23 Interval history: Patient does not have any chest pain. She describes some discomfort in her throat. Review of Systems Review of Systems Yes all other systems are reviewed and are negative Constitutional: Reports as per HPI and Reports no additional constitutional complaints Eyes: Reports as per HPI and Denies no additional eye complaints Denies system reviewed and no additional complaints, except as documented and Reports as per HPI Cardiovascular: Reports as per HPI, Reports no additional cardiovascular complaints, Denies acrocyanosis, Denies cool extremities, Denies chest pain, Denies leg edema, Denies lightheadedness, Denies palpitations and Denies dyspnea Respiratory: Reports as per HPI, Denies no additional respiratory complaints and Denies dyspnea Gastrointestinal: Reports as per HPI and Denies no additional gastrointestinal complaints Genitourinary: Reports as per HPI Musculoskeletal: Reports no additional musculoskeletal complaints and Reports as per HPI Skin/Breast: Reports system reviewed and no additional complaints, except as docu Reports system reviewed and no additional complaints, except as documented and Reports as per HPI Psychiatric: Reports no additional psychiatric complaints and Reports as per HPI Endocrine: Reports no additional endocrine complaints, Reports as per HPI and Denies palpitations Hematologic/Lymphatic: Reports no additional hematologic/lymphatic complaints and Reports as per HPI Allergic/Immunologic: Reports no additional allergic/immunologic complaints and Reports as per HPI Physical Exam Vital Signs: Last Vital Signs Temp 98.8 F 09/02/23 07:24 Pulse 122 H 09/02/23 09:50 Resp 20 09/02/23 07:24 BP 150/58 H 09/02/23 09:50 Pulse Ox 95 09/02/23 07:24 O2 Del Method Room Air 09/02/23 07:24 O2 Flow Rate 2 09/02/23 00:00 BMI result Body Mass Index 23.1 Const General: comfortable and no acute distress Orientation/consciousness: patient oriented x3 HEENT Other: Unremarkable Head: Yes normal to inspection Neck Neck: Yes normal visual inspection Chest Chest palpation & inspection: normal inspection of the chest Resp Auscultation: clear to auscultation bilaterally Cardio Palpation: normal PMI Heart sounds: S1 normal heart sound present, S2 normal heart sound present, no gallops, no murmurs and no rubs GI Palpation (GI): Soft to palpation Back/Spine/Pelvis Other: unremarkable Skin General skin exam: no rashes or lesions noted Neuro General: patient oriented x3 Extrem General: Yes normal to inspection Psych Mental Status: mental status grossly normal Objective Labs and Meds 09/02/23 07:02 09/02/23 07:02 Lab results: Laboratory Results - last 24 hr 09/01/23 09/01/23 09/01/23 04:39 11:14 15:43 WBC RBC Hgb Hct MCV MCH MCHC RDW Plt Count MPV Immature Gran % (Auto) Neut % (Auto) Lymph % (Auto) Arthur % (Auto) Eos % (Auto) Baso % (Auto) Lymph # (Auto) Arthur # (Auto) Eos # (Auto) Baso # (Auto) Abs Immat Gran (auto) Absolute Neuts (auto) Absolute Nucleated RBC Nucleated RBC % (auto) Neutrophils % (Manual) Band Neutrophils % Lymphocytes % (Manual) Monocytes % (Manual) Metamyelocytes % Abs Neuts (Manual) Lymphocytes # (Manual) Monocytes # (Manual) Metamyelocytes # Platelet Estimate Plt Morphology Comment RBC Morphology Absolute Retic Percent Retic Immature Retic Fraction Retic Hgb Equivalent Sodium Potassium Chloride Carbon Dioxide Anion Gap BUN Creatinine Estim Creat Clear Calc Estimated GFR POC Glucose 163 H 166 H Random Glucose Calcium Iron TIBC % Saturation Unsat Iron Binding Ferritin Total Bilirubin Direct Bilirubin AST ALT Alkaline Phosphatase Lactate Dehydrogenase Total Protein Albumin Vitamin B12 Folate TSH 0.42 09/01/23 09/02/23 09/02/23 20:49 07:02 07:15 WBC 7.6 RBC 3.36 L Hgb 9.7 L Hct 28.4 L MCV 84.5 MCH 28.9 MCHC 34.2 RDW 14.1 Plt Count 150 L MPV 9.6 Immature Gran % (Auto) Cancelled Neut % (Auto) Cancelled Lymph % (Auto) Cancelled Arthur % (Auto) Cancelled Eos % (Auto) Cancelled Baso % (Auto) Cancelled Lymph # (Auto) Cancelled Arthur # (Auto) Cancelled Eos # (Auto) Cancelled Baso # (Auto) Cancelled Abs Immat Gran (auto) Cancelled Absolute Neuts (auto) Cancelled Absolute Nucleated RBC 0.000 Nucleated RBC % (auto) 0.0 Neutrophils % (Manual) 87 H Band Neutrophils % 5 Lymphocytes % (Manual) 3 L Monocytes % (Manual) 4 Metamyelocytes % 1 Abs Neuts (Manual) 7.0 Lymphocytes # (Manual) 0.2 L Monocytes # (Manual) 0.3 Metamyelocytes # 0.1 Platelet Estimate SLIGHTLY DECREASED Plt Morphology Comment NORMAL RBC Morphology NORMAL Absolute Retic 0.029 Percent Retic 0.9 Immature Retic Fraction 15.3 Retic Hgb Equivalent 29.6 L Sodium 138 Potassium 4.2 Chloride 98 Carbon Dioxide 28 Anion Gap 16 BUN 20 H Creatinine 0.81 Estim Creat Clear Calc 57.3 Estimated GFR > 60 POC Glucose 237 H 91 Random Glucose 113 Calcium 9.9 Iron 28 L TIBC 135 L % Saturation 21 Unsat Iron Binding 107 Ferritin > 1676 H Total Bilirubin 0.9 Direct Bilirubin 0.4 AST 71 H ALT 58 H Alkaline Phosphatase 356 H Lactate Dehydrogenase 1150 H Total Protein 6.1 L Albumin 2.9 L Vitamin B12 569 Folate 12.6 TSH Progress Note: A&P Assessment and plan (1) Tachycardia: Status: Acute (2) Chest pain: Status: Acute (3) Anemia: Status: Acute (4) Abnormal LFTs: Status: Acute Plan EKG with sinus tachycardia at 117/Min with nonspecific ST-T changes. Not seen in the EKG from 08/11/2023. At that time, heart rate was 75/Min. High sensitivity troponins are mildly elevated but flat. In the labs, LFTs are abnormal. LDH is quite high. Albumin is low. Other hematological parameters are also abnormal. Echocardiogram with hyperdynamic LVEF and otherwise unremarkable. CT chest shows no evidence of pulmonary emboli. Left upper lobe punctate calcifications of unclear etiology. Pulmonary nodules. Hepatic steatosis. Overall, do not think she needs any inpatient cardiac workup. Consider Hematology/GI workup due to abnormal labs. Discussed with Dr. Naik. Time Spent With Patient Time: Total time managing care of this patient today ____ minutes. Progress Note: Quality Stroke Does the patient have a stroke diagnosis?: No Procedures Date of Service Date of Service: 09/02/23
--- NOTE | 2023-09-02 10:05 | P.CNHO_ITS ---
Subjective - Subjective Chief complaint: Fatigue, near syncope Patient: new to practice Consult date: 09/02/23 Primary Care Provider: Li Whitehead MD HPI - Consult Narrative Reason for consult: Anemia Narrative: Jaclyn Looney is a 73 year old female who is admitted for progressive weakness and findings of elevated D-dimer and sinus tachycardia. Patient states that for the last 2 weeks she has been getting weaker with reports of palpitation and dizziness. She almost fainted over the weekend when she was doing yard work. She has been experiencing palpitations and occasional chest pain. She has had poor appetite and unintentional weight loss. She was recently diagnosed with type 2 diabetes and was started on metformin. Patient was treated for left breast cancer 24 years ago. She underwent lumpectomy followed by radiation therapy and 5 years of tamoxifen. She did not receive chemotherapy. She underwent hysterectomy around the same time. This no family history of breast cancer or any other cancers that she can recall. No family history of diabetes either. Evaluation in the emergency department revealed leukocytosis of 11.0. Normocytic anemia with h/h 10.3/29.9%. Renal fx normal, lytes normal except for Na 134, Ca 10.7. Glucose 133. Initial trop 17.3, repeat 24.8. EKG shows sinus tach, no acute ischemic changes. Head CT negative for acute intracranial abnormality. CTA chest negative for PE, shows pleural parenchymal irregularity along the anterior/anterolateral aspect of the ELISA with punctate calcifications with bilateral pulmonary nodules. Review of Systems - Constitutional Reports as per HPI, Reports lack of energy, Reports malaise, Reports weight loss - Cardiovascular Reports no additional cardiovascular complaints - Respiratory Reports no additional respiratory complaints, Denies hemoptysis, Reports dyspnea, Denies wheezing - Gastrointestinal Reports no additional gastrointestinal complaints - Neurologic Reports no additional neurologic complaints, Reports as per HPI [facility] Medical History: Medical History (Last Updated 08/31/23 @ 12:43 by RAHAT Thomas) Cancer of breast Chest pain Hyperlipidemia Irregular heart beat Kidney stone Type 2 diabetes mellitus with hyperglycemia, without long-term current use of insulin Family History: Family History (Last Updated 08/19/23 @ 09:54 by Li Whitehead MD) Mother Tuberculosis Brother Myocardial infarction, Onset Age: 55 Skin cancer Father Skin cancer Surgical History: Surgical History (Last Reviewed 08/19/23 @ 09:51 by Li Whitehead MD) H/O colonoscopy History of lumpectomy of left breast History of surgery on arm Hx of thumb surgery S/P JUSTIN (total abdominal hysterectomy) Social History: Social History (Last Reviewed 08/19/23 @ 09:54 by Li Whitehead MD) Living Situation History: Housing: House Alcohol History Details: 1. How often do you have a drink containing alcohol?: a. Never AUDIT-C Alcohol total score: 0 Currently Displaying Signs/Symptoms of Alcohol Withdrawal: No Tobacco History: Patient Tobacco Use Status: Never used Tobacco Tobacco use type: Cigarette Smoked in Last 30 Days: No e-Cigarette/Vaping Use: Never Used Second Hand Smoke Exposure: No Substance Use History: Use of substances other than those prescribed or required for medical reasons : No Currently Displaying Signs/Symptoms of Drug Intoxication Withdrawal: No Advance Directives: Advance Directives: No Advance Directives Information Provided: No Homicidal Assessment: Do you have a plan to hurt others: No Plan Nutrition Assessment: Nutrition Risks: No Nutritional Risk Occupation Assessmet: service: No Current occupational status: retired Home Medications and Allergies Current Medications: Current Medications Acetaminophen (Acetaminophen 325 Mg Tablet) 650 mg PO Q6H PRN PRN Reason: Pain, Mild (Pain Scale 1-3) Last Admin: 09/01/23 22:57 Dose: 650 mg Aspirin (Aspirin Enteric Coated 81 Mg Tablet.Dr) 81 mg PO DAILY [facility] Last Admin: 09/02/23 08:42 Dose: 81 mg Glucose (Glucose Gel 15 Gm Gel..Gram.) 15 gm PO Q15M PRN; Protocol PRN Reason: per Hypoglycemia Standing Ord. Dextrose (D10) 250 mls @ 750 mls/hr IV Q15M PRN; Protocol PRN Reason: per Hypoglycemia Standing Ord. Insulin Human Lispro (Insulin Lispro 100 Unit/Ml 3 Ml Vial) 0 unit SUBCUT QIDACHS [facility]; Protocol Last Admin: 09/02/23 07:42 Dose: Not Given Magnesium Hydroxide (Milk Of Magnesia 30 Ml Oral.Susp) 30 ml PO DAILY PRN PRN Reason: Constipation Metoprolol Succinate (Metoprolol Succinate Er 50 Mg Tab.Er.24h) 50 mg PO DAILY [facility]; Protocol Last Admin: 09/02/23 08:41 Dose: 50 mg Morphine Sulfate (Morphine Sulfate 2 Mg/Ml Cartridge) 2 mg IVPUSH Q4H PRN; Protocol PRN Reason: Pain, Severe (Pain Scale 7-10) Last Admin: 09/01/23 03:47 Dose: 2 mg Multivitamins/Vitamin C (Multivitamin Tablet) 1 tab PO DAILY [facility] Last Admin: 09/02/23 08:42 Dose: 1 tab Nitroglycerin (Nitroglycerin 0.4 Mg Tab.Subl) 0.4 mg SUBLINGUAL Q5MX3 PRN PRN Reason: Chest Pain Last Admin: 09/01/23 04:43 Dose: 0.4 mg Ondansetron HCl (Ondansetron Hcl 4 Mg/2 Ml Vial) 4 mg IVPUSH Q8H PRN PRN Reason: Nausea and Vomiting Last Admin: 09/01/23 04:49 Dose: 4 mg Pravastatin Sodium (Pravastatin Sodium 20 Mg Tablet) 20 mg PO DAILY [facility] Sodium Chloride (0.9 % Sodium Chloride Flush 3 Ml Syringe) 3 ml IVFLUSH QSHIFT [facility] Last Admin: 09/02/23 08:42 Dose: 3 ml Vitamin D (Cholecalciferol (Vitamin D3) 25 Mcg Tablet) 25 mcg PO DAILY [facility] Last Admin: 09/02/23 08:42 Dose: 25 mcg Home Medications ?Medication ?Instructions ?Recorded ?Confirmed ?Type lovastatin 20 mg tablet 20 mg PO DAILY 01/13/23 08/31/23 History metoprolol succinate 50 mg 50 mg PO DAILY 08/19/23 08/31/23 History tablet,extended release 24 hr cholecalciferol (vitamin D3) 25 25 mcg PO DAILY 08/31/23 08/31/23 History mcg (1,000 unit) tablet (Vitamin D3) multivitamin 1 tab PO DAILY 08/31/23 08/31/23 History Allergies Allergy/AdvReac Type Severity Reaction Status Date / Time sulfamethoxazole Allergy Intermediate HIVES Verified 08/31/23 01:50 [From Bactrim] trimethoprim [From Bactrim] Allergy Intermediate HIVES Verified 08/31/23 01:50 amoxicillin [Amoxicillin] Allergy Mild RASH Verified 08/31/23 01:50 Sulfa (Sulfonamide Allergy Unknown Hives Verified 08/31/23 01:50 Antibiotics) Physical Exam Vital signs: Vital Signs Temp 98.8 F 09/02/23 07:24 Pulse 122 H 09/02/23 09:50 Resp 20 09/02/23 07:24 BP 150/58 H 09/02/23 09:50 Pulse Ox 95 09/02/23 07:24 O2 Del Method Room Air 09/02/23 07:24 O2 Flow Rate 2 09/02/23 00:00 Intake & Output 09/01/23 09/02/23 09/02/23 18:59 06:59 18:59 Intake Total 590 / 590 Output Total 300 / 300 Balance 290 / 290 Urine Output (Average ml/kg/hr) 0.40 0.40 Intake: Intake, Oral Amount 590 / 590 Output: Output, Urine Amount 300 / 300 Other: Number of Unmeasured Voids 1 2 Urine Bathroom Urine Color Yellow Last Bowel Movement 08/30/23 Weight 63 kg [place] Weight in Grams [id number] Weight 63 kg - Constitutional Present: no acute distress - Routine HEENT Exam Eye: Present: EOMI - Routine Neck Exam Present: supple. Absent: lymphadenopathy - Routine Respiratory Exam Present: CTAB - Routine Cardiovascular Exam Cardiovascular: Present: S1, S2, tachycardia - Routine Abdominal Exam Present: soft. Absent: mass Hem/Onc Consult Result - Labs CBC & Chem 7: 09/02/23 07:02 09/02/23 07:02 Labs: Short CBC 09/02/23 Range/Units 07:02 WBC 7.6 (4.8-10.8) X10*3/uL Hgb 9.7 L (12.0-16.0) g/dl Hct 28.4 L (37.0-47.0) % Plt Count 150 L (160-400) X10*3/uL BMP 09/02/23 07:02 Sodium 138 Potassium 4.2 Chloride 98 Carbon Dioxide 28 BUN 20 H Creatinine 0.81 Calcium 9.9 Liver Function 09/02/23 Range/Units 07:02 Total Bilirubin 0.9 (0.0-1.0) mg/dL Direct Bilirubin 0.4 (0.0-0.5) mg/dL AST 71 H (5-31) U/L ALT 58 H (0-31) U/L Alkaline Phosphatase 356 H (39-117) U/L Albumin 2.9 L (3.5-5.0) g/dL Assessment and Plan Patient Active problem list reviewed?: Yes (1) Anemia Status: Acute Assessment and plan: 1. This is a pleasant 73-year-old woman with remote history of left breast cancer now presenting with mild normocytic anemia, new onset diabetes, elevated liver enzymes and LDH worrisome for underlying malignancy. CT angiogram of chest was negative for pulmonary embolism. D-dimer is elevated. Ferritin another marker of inflammation is also high. LDH is over 1100. Normal vitamin B12 and folate levels. Peripheral smear evaluation shows no abnormal cells to suggest acute hematological process such as leukemia. Her kidney functions are stable, she does not have significant thrombocytopenia, no evidence of hemolysis. I recommend CT abdomen/pelvis with contrast. She has had a colonoscopy in 2022 which showed benign polyps. Given her new onset diabetes, concern is for primary pancreatic malignancy. I thank you for this consult, will follow with you. - Time Spent With Patient Time Spent with Patient (in minutes): 30
--- NOTE | 2023-09-02 10:24 | MHC.CM.PN ---
Patient has been changed from OBSERVATION to INPATIENT; CM met with Patient at bedside and addressed IMM with her(original was given to Patient and a copy has been placed on the chart).
[2023-09-02] MEDS: Throat Lozenge, Medicated LOZENGE 1 LOZENGE MUCOUS MEM (10:52)
[2023-09-02] MEDS: Acetaminophen 325 MG TABLET 650 MG PO ×2 (10:53→19:01)
[2023-09-02 11:28] LABS: Glucose, Whole Blood 255 mg/dL (60-115)
[2023-09-02 11:33] LABS: HBS Num1 0.24 mIU/mL (0-7.99); HBc Num1 0.07 S/CO (0.00-0.79); HBsAGNum1 0.28 S/CO (0.00-0.99); Hepatitis B Core Antibody Nonreactive (Nonreactive); Hepatitis B Surface Antigen Negative (Negative); ~HepC Num1 0.08 S/CO (0.00-0.79); ~Hepatitis A Antibody IgM Nonreactive (Nonreactive); ~Hepatitis B Surface Antibody NONREACTIVE (Nonreactive); ~Hepatitis C Antibody Nonreactive (Nonreactive)
[2023-09-02] MEDS: iohexoL 350 MG/ML 100 ML INFUS..BTL IV (14:34)
[2023-09-02 15:05] LABS: Adenovirus PCR Not Detected (Not Detect.); Bordetella parapertussis PCR Not Detected (Not Detect.); Bordetella pertussis PCR Not Detected (Not Detect.); Chlamydia pneumoniae PCR Not Detected (Not Detect.); Coronavirus 229E PCR Not Detected (Not Detect.); Coronavirus HKU1 PCR Not Detected (Not Detect.); Coronavirus NL63 PCR Not Detected (Not Detect.); Coronavirus OC43 PCR Not Detected (Not Detect.); Human metapneumovirus PCR Not Detected (Not Detect.); Influenza A PCR Not Detected (Not Detect.); Influenza B PCR Not Detected (Not Detect.); Mycoplasma pneumoniae PCR Not Detected (Not Detect.); Parainfluenza 1 PCR Not Detected (Not Detect.); Parainfluenza 2 PCR Not Detected (Not Detect.); Parainfluenza 3 PCR Not Detected (Not Detect.); Parainfluenza 4 PCR Not Detected (Not Detect.); RSV PCR Not Detected (Not Detect.); Rhino/Enterovirus PCR Not Detected (Not Detect.)
[2023-09-02 15:29] LABS: SARS-CoV-2 PCR Not Detected (Not Detect.)
[2023-09-02 16:21] LABS: Glucose, Whole Blood 297 mg/dL (60-115)
[2023-09-02] MEDS: Insulin Lispro 100 UNIT/ML 3 ML VIAL SUBCUT ×2 (16:46→21:46)
--- NOTE | 2023-09-02 18:28 | HO.PM.IMPN ---
Subjective Subjective Date of Service: 09/02/23 Interval History: Elevated LFTs, tachycardia Review of Systems Patient denies any chest pain Gets some short of breath with walking Has nausea, no abdominal pain Physical Exam Vital Signs: Vital Signs: Last Vital Signs Temp 97.5 F 09/02/23 15:11 Pulse 108 H 09/02/23 15:48 Resp 20 09/02/23 15:11 BP 137/57 L 09/02/23 15:48 Pulse Ox 98 09/02/23 15:11 O2 Del Method Room Air 09/02/23 15:11 O2 Flow Rate 2 09/02/23 00:00 BMI result Body Mass Index 23.1 General: AO X 3, no acute distress Resp: CTA bilateral CVS: S1,S2,RRR GI: +BS, NT, no distention Skin: No rash Neuro: motor grossly intact Psych: appropriate affect Objective Data Active Medications Acetaminophen (Acetaminophen 325 Mg Tablet) 650 mg PO Q6H PRN PRN Reason: Pain, Mild (Pain Scale 1-3) Last Admin: 09/02/23 10:53 Dose: 650 mg Documented By: FRANKY Aspirin (Aspirin Enteric Coated 81 Mg Tablet.Dr) 81 mg PO DAILY [facility] Last Admin: 09/02/23 08:42 Dose: 81 mg Documented By: FRANKY Benzocaine (Throat Lozenge, Medicated Lozenge) 1 lozenge MUCOUS MEM Q2H PRN PRN Reason: Sore Throat Last Admin: 09/02/23 10:52 Dose: 1 lozenge Documented By: FRANKY Glucose (Glucose Gel 15 Gm Gel..Gram.) 15 gm PO Q15M PRN; Protocol PRN Reason: per Hypoglycemia Standing Ord. Dextrose (D10) 250 mls @ 750 mls/hr IV Q15M PRN; Protocol PRN Reason: per Hypoglycemia Standing Ord. Insulin Human Lispro (Insulin Lispro 100 Unit/Ml 3 Ml Vial) 0 unit SUBCUT QIDACHS [facility]; Protocol Last Admin: 09/02/23 16:46 Dose: 6 unit Documented By: FRANKY Magnesium Hydroxide (Milk Of Magnesia 30 Ml Oral.Susp) 30 ml PO DAILY PRN PRN Reason: Constipation Metoprolol Succinate (Metoprolol Succinate Er 50 Mg Tab.Er.24h) 50 mg PO DAILY [facility]; Protocol Last Admin: 09/02/23 08:41 Dose: 50 mg Documented By: FRANKY Morphine Sulfate (Morphine Sulfate 2 Mg/Ml Cartridge) 2 mg IVPUSH Q4H PRN; Protocol PRN Reason: Pain, Severe (Pain Scale 7-10) Last Admin: 09/01/23 03:47 Dose: 2 mg Documented By: ANITHA Multivitamins/Vitamin C (Multivitamin Tablet) 1 tab PO DAILY [facility] Last Admin: 09/02/23 08:42 Dose: 1 tab Documented By: FRANKY Nitroglycerin (Nitroglycerin 0.4 Mg Tab.Subl) 0.4 mg SUBLINGUAL Q5MX3 PRN PRN Reason: Chest Pain Last Admin: 09/01/23 04:43 Dose: 0.4 mg Documented By: ANITHA Ondansetron HCl (Ondansetron Hcl 4 Mg/2 Ml Vial) 4 mg IVPUSH Q8H PRN PRN Reason: Nausea and Vomiting Last Admin: 09/01/23 04:49 Dose: 4 mg Documented By: ANITHA Pravastatin Sodium (Pravastatin Sodium 20 Mg Tablet) 20 mg PO DAILY [facility] Sodium Chloride (0.9 % Sodium Chloride Flush 3 Ml Syringe) 3 ml IVFLUSH QSHIFT [facility] Last Admin: 09/02/23 16:48 Dose: 3 ml Documented By: FRANKY Vitamin D (Cholecalciferol (Vitamin D3) 25 Mcg Tablet) 25 mcg PO DAILY [facility] Last Admin: 09/02/23 08:42 Dose: 25 mcg Documented By: FRANKY Labs 09/02/23 07:02 09/02/23 07:02 Labs: Laboratory Results - last 24 hr 09/01/23 09/02/23 09/02/23 20:49 07:02 07:15 MCV 84.5 MCH 28.9 MCHC 34.2 RDW 14.1 Plt Count 150 L MPV 9.6 Immature Gran % (Auto) Cancelled Neut % (Auto) Cancelled Lymph % (Auto) Cancelled [place] % (Auto) Cancelled Eos % (Auto) Cancelled Baso % (Auto) Cancelled Lymph # (Auto) Cancelled [place] # (Auto) Cancelled Eos # (Auto) Cancelled Baso # (Auto) Cancelled Abs Immat Gran (auto) Cancelled Absolute Neuts (auto) Cancelled Absolute Nucleated RBC 0.000 Nucleated RBC % (auto) 0.0 Neutrophils % (Manual) 87 H Band Neutrophils % 5 Lymphocytes % (Manual) 3 L Monocytes % (Manual) 4 Metamyelocytes % 1 Abs Neuts (Manual) 7.0 Lymphocytes # (Manual) 0.2 L Monocytes # (Manual) 0.3 Metamyelocytes # 0.1 Platelet Estimate SLIGHTLY DECREASED Plt Morphology Comment NORMAL RBC Morphology NORMAL Smear Path Review SEE NOTE Absolute Retic 0.029 Percent Retic 0.9 Immature Retic Fraction 15.3 Retic Hgb Equivalent 29.6 L Anion Gap 16 Estim Creat Clear Calc 57.3 Estimated GFR > 60 POC Glucose 237 H 91 Random Glucose 113 Calcium 9.9 Iron 28 L TIBC 135 L % Saturation 21 Unsat Iron Binding 107 Ferritin > 1676 H Total Bilirubin 0.9 Direct Bilirubin 0.4 AST 71 H ALT 58 H Alkaline Phosphatase 356 H Lactate Dehydrogenase 1150 H Total Protein 6.1 L Albumin 2.9 L Vitamin B12 569 Folate 12.6 Respiratory Panel Schneider Adenovirus (Rapid PCR) B.pert (TEM-PCR) B.parapertussis DNA PCR C. pneumoniae DNA (PCR) Coronavirus OC43 (PCR) Coronavirus HKU1 (PCR) Coronavirus 229E (PCR) Coronavirus NL63 (PCR) Hepatitis A IgM Ab Hep Bs Antigen Hep Bs Antibody Hep B Core Total Ab Hepatitis C Ab (EIA) Human Metapneumovir PCR Influenza A (RT-PCR) Influenza B (RT-PCR) M. pneumoniae (PCR) Parainfluenza 1 (PCR) Parainfluenza 2 (PCR) Parainfluenza 3 (PCR) Parainfluenza 4 (PCR) RSV (PCR) Entero/Rhino (PCR) SARS-CoV-2 RNA (RT-PCR) 09/02/23 09/02/23 09/02/23 09:53 10:25 11:24 MCV MCH MCHC RDW Plt Count MPV Immature Gran % (Auto) Neut % (Auto) Lymph % (Auto) [place] % (Auto) Eos % (Auto) Baso % (Auto) Lymph # (Auto) [place] # (Auto) Eos # (Auto) Baso # (Auto) Abs Immat Gran (auto) Absolute Neuts (auto) Absolute Nucleated RBC Nucleated RBC % (auto) Neutrophils % (Manual) Band Neutrophils % Lymphocytes % (Manual) Monocytes % (Manual) Metamyelocytes % Abs Neuts (Manual) Lymphocytes # (Manual) Monocytes # (Manual) Metamyelocytes # Platelet Estimate Plt Morphology Comment RBC Morphology Smear Path Review Cancelled Absolute Retic Percent Retic Immature Retic Fraction Retic Hgb Equivalent Anion Gap Estim Creat Clear Calc Estimated GFR POC Glucose 255 H Random Glucose Calcium Iron TIBC % Saturation Unsat Iron Binding Ferritin Total Bilirubin Direct Bilirubin AST ALT Alkaline Phosphatase Lactate Dehydrogenase Total Protein Albumin Vitamin B12 Folate Respiratory Panel Schneider Adenovirus (Rapid PCR) B.pert (TEM-PCR) B.parapertussis DNA PCR C. pneumoniae DNA (PCR) Coronavirus OC43 (PCR) Coronavirus HKU1 (PCR) Coronavirus 229E (PCR) Coronavirus NL63 (PCR) Hepatitis A IgM Ab Nonreactive Hep Bs Antigen Negative Hep Bs Antibody NONREACTIVE Hep B Core Total Ab Nonreactive Hepatitis C Ab (EIA) Nonreactive Human Metapneumovir PCR Influenza A (RT-PCR) Influenza B (RT-PCR) M. pneumoniae (PCR) Parainfluenza 1 (PCR) Parainfluenza 2 (PCR) Parainfluenza 3 (PCR) Parainfluenza 4 (PCR) RSV (PCR) Entero/Rhino (PCR) SARS-CoV-2 RNA (RT-PCR) 09/02/23 09/02/23 13:33 16:14 MCV MCH MCHC RDW Plt Count MPV Immature Gran % (Auto) Neut % (Auto) Lymph % (Auto) [place] % (Auto) Eos % (Auto) Baso % (Auto) Lymph # (Auto) [place] # (Auto) Eos # (Auto) Baso # (Auto) Abs Immat Gran (auto) Absolute Neuts (auto) Absolute Nucleated RBC Nucleated RBC % (auto) Neutrophils % (Manual) Band Neutrophils % Lymphocytes % (Manual) Monocytes % (Manual) Metamyelocytes % Abs Neuts (Manual) Lymphocytes # (Manual) Monocytes # (Manual) Metamyelocytes # Platelet Estimate Plt Morphology Comment RBC Morphology Smear Path Review Absolute Retic Percent Retic Immature Retic Fraction Retic Hgb Equivalent Anion Gap Estim Creat Clear Calc Estimated GFR POC Glucose 297 H Random Glucose Calcium Iron TIBC % Saturation Unsat Iron Binding Ferritin Total Bilirubin Direct Bilirubin AST ALT Alkaline Phosphatase Lactate Dehydrogenase Total Protein Albumin Vitamin B12 Folate Respiratory Panel Schneider See Note Adenovirus (Rapid PCR) Not Detected B.pert (TEM-PCR) Not Detected B.parapertussis DNA PCR Not Detected C. pneumoniae DNA (PCR) Not Detected Coronavirus OC43 (PCR) Not Detected Coronavirus HKU1 (PCR) Not Detected Coronavirus 229E (PCR) Not Detected Coronavirus NL63 (PCR) Not Detected Hepatitis A IgM Ab Hep Bs Antigen Hep Bs Antibody Hep B Core Total Ab Hepatitis C Ab (EIA) Human Metapneumovir PCR Not Detected Influenza A (RT-PCR) Not Detected Influenza B (RT-PCR) Not Detected M. pneumoniae (PCR) Not Detected Parainfluenza 1 (PCR) Not Detected Parainfluenza 2 (PCR) Not Detected Parainfluenza 3 (PCR) Not Detected Parainfluenza 4 (PCR) Not Detected RSV (PCR) Not Detected Entero/Rhino (PCR) Not Detected SARS-CoV-2 RNA (RT-PCR) Not Detected Assessment and Plan (1) Anemia: Status: Acute (2) Chest pain: Status: Acute (3) Tachycardia: Status: Acute Plan 73 year old female with history of type 2 diabetes, hld, hx breast cancer 1990s to be observed for chest pain Chest pain- seems atypical, troponin i mildly high but flat -initial trop 17-->24-->20. EKG without actue ischemic changes, negative PE bt CTA -cardiology input noted, echo, continue ASA, statin for now Tachycardia--imrpoving,likely relaed to anxiety--resolved, TSH is normal. Near syncope: unclear etiology echo:The left ventricular systolic function is normal. The calculated ejection fraction is 70% by biplane method. - No obvious valvular pathology seen on this study. tele -tachy -?anxiety -head ct negative for acute intracranial abn -plan as above Anemia--cbc reviewed by Hematology- no abnormal cells to suggest acute hematological process such as leukemia Elevated LFTs, LDH: Discussed with hematology added CT abdomen with contrast to rule out? Given her new onset diabetes, concern is for primary pancreatic malignancy. Nauseated: P.o. intake is low, added Zofran. GI evaluation Chronic tension headaches-head ct negative for acute intracranial abn -trial imitrex -outpt follow up dm type 2 diabetes with hyperglycemia: fs 200's -hgb a1c 6.9% -poc glucose, diabetic diet -admelog ss, hold metformin HLD-statin dvt prophylaxis- lovenox full code. Ongoing hospitalization need: Decreased p.o. intake, nausea, elevated LFT need further workup and GI input as well as CT abdomen due to concern of pancreatic malignancy Quality Stroke Does the patient have a stroke diagnosis?: No VTE Prior VTE?: No VTE Risk Level:: Medical - moderate - high VTE Device Contraindication: Treatment Not Indicated VTE Drug Contraindication: N/A - Med Ordered
[2023-09-02] MEDS: Milk of Magnesia 30 ML ORAL.SUSP PO (19:01)
--- NOTE | 2023-09-02 19:48 | PM.EVENT ---
Event Note Date of Service: 09/02/23 Event Note: GI Consult-Full note dictated Imp: Elevated LFT's with primarily an elevated Alk phos and an anemia with significant elevations of Ferritin and LDH. R/O any autoimmune disease such primary biliary cholangitis or lupus. I don't think this reflects any acute GI blood loss given a negative stool Hemoccult, no obvious GI bleeding, negative colonoscopy in Fall 2022 except for a few small polyps, and no particular GI symptoms other than anroexia. Rec: Check her CT Abd/Pelvis result, liver studies to R/O PBC and other autoimmune liver disease, check sed rate and CRP, F/U CBC and chemistries, check GGT re: elevated Alk phos, and stop statin for now. Observe. D/W patient and daughter in detail. Thanks Time Spent With Patient Time: Total time managing care of this patient today ____ minutes.
[2023-09-02 19:56] LABS: Glucose, Whole Blood 191 mg/dL (60-115)
[2023-09-03] VITALS (14 sets, daily range): BP systolic 110–156; BP diastolic 58–68; PULSE 92–112; RESP 16–20; TEMP 36.2–37.3; O2SAT 96–99
[2023-09-03] MEDS: Acetaminophen 325 MG TABLET 650 MG PO (01:08)
--- NOTE | 2023-09-03 03:55 | CONS_ITS ---
DATE OF SERVICE: 09/02/2023 REASON FOR CONSULTATION: Elevated LFTs and anemia. HISTORY OF PRESENT ILLNESS: This has been obtained from the patient, her daughter, and the medical record. The patient is a 73-year-old female, known to me from previous office visits for colorectal cancer screening. I last saw her in December 2022, at which time she underwent a screening colonoscopy with the removal of several small tubular adenomas. In general, the patient is healthy and had been feeling well up until the past month or so. She describes the onset of some constitutional symptoms including fatigue, anorexia, and some weakness. She also describes a headache, chest pain, palpitations, and some shortness of breath. Other than anorexia, she was not having any other particular GI symptoms. She denies any dysphagia, nausea, nor vomiting. She denies any significant heartburn. She has not been having any abdominal pain and has not noticed any jaundice. She reports that her bowel movements have been fairly regular and without any hematochezia nor melena. She denies any previous history of liver disease in herself nor family members. She does not use any significant amounts of alcohol. She does smoke. The patient describes that she was recently diagnosed with diabetes and was started on metformin. However, her symptoms predated that. She has been on long-standing statin medication for cholesterol, but this is certainly not new. She denies any ill contacts. Due to the persistent symptoms along with chest pain, she came to the ER and was admitted to the hospital on August 30. She was found to be newly anemic. She did undergo a CT angiogram of her chest to rule out pulmonary embolus, which was negative for that. The upper abdominal organs appeared normal including what appeared to be just a fatty liver, but no sign of any liver mass. Since admission here in the hospital, she has had no signs of GI bleeding. She has remained anorectic. Her hemoglobin on August 09, 2023, was 12.0. Hemoglobin on August 30 was 10.3. Hemoglobin on August 31 was 9.3 and hemoglobin today was 9.7 with a normal MCV. Her white blood cell count has remained normal. Her platelets did drop a little bit to 150,000 today. She was seen by Dr. Vasquez from Hematology and she does not think she is having any acute hematologic process. She did order a CT scan of the abdomen and pelvis to rule out any type of occult underlying malignancy. MEDICATIONS: At home included aspirin 81 mg, vitamin D, lovastatin, metformin, metoprolol, multivitamin. Medications here in the hospital include acetaminophen p.r.n., 81 mg aspirin, vitamin D, sliding scale insulin, metoprolol, milk of magnesia, morphine, multivitamins, Zofran. She is also on Pravachol here as a substitute for her outpatient lovastatin. PAST MEDICAL HISTORY: Breast cancer in 1997. She is status post lumpectomy with lymph node dissection, radiation, and 5 years of tamoxifen therapy. She has had kidney stones. Irregular heartbeat. Negative screening colonoscopy in 2012 and colonoscopy in 2022 with removal of small tubular adenomas. She denies any history of HI, stroke, known lung disease, nor kidney disease besides kidney stones. She does have hyperlipidemia. She has had arm surgery for trauma, hysterectomy, and right thumb surgery for a joint removal. FAMILY HISTORY: Noncontributory. No family history of colorectal cancer nor liver disease. SOCIAL HISTORY: As above. She is , but her is disabled. REVIEW OF SYSTEMS: CONSTITUTIONAL: Over at least the past month, she has had weakness, headaches, fatigue, and some anorexia. CARDIAC: Chest pain. Palpitations. PULMONARY: No coughing or hemoptysis. GI: As above. URINARY: No dysuria. No hematuria. NEUROLOGIC: She has had headaches, but no seizures. PHYSICAL EXAMINATION: GENERAL: The patient is a somewhat pale, elderly, alert female, in no acute distress. SKIN: Warm and dry. No spider angiomata. NECK: Supple. ABDOMEN: Soft, nondistended, nontender without organomegaly or mass. EXTREMITIES: Had edema. There is no palmar erythema. NEUROLOGICAL: She is alert and oriented. She answers questions appropriately. LABORATORY DATA: CBC as above with hemoglobin 9.7 today with a normal MCV. PT 13.0 with INR 1.1. D-dimer was elevated at 2460. Normal electrolytes. BUN 20, creatinine 0.8. Iron 28, iron saturation 21%, ferritin is over 1600. LFTs showed a total bilirubin of 0.9, AST 71, ALT 58, alkaline phosphatase is 356 today compared to 142 in July, LDH elevated 1150, albumin 2.9. Normal B12 and folate. TSH normal. Stool was Hemoccult negative. Hepatitis A, B, and C studies were negative. COVID was negative. Influenza was negative. CT angiogram of the chest as described above with a fatty liver and no pulmonary embolus. Abdominal and pelvic CT is pending. IMPRESSION: Given the patient's clinical history, there does not appear to be any obvious liver disease on her imaging studies nor any biliary disease. She does not show any stigmata of chronic liver disease. She did have a slightly elevated alkaline phosphatase in July and the alkaline phosphatase has now significantly risen at the time of this admission. She has been on a chronic statin, but no other new medications besides metformin. There does not appear to be any obvious metastatic disease related to her liver. She may have some autoimmune process occurring with something such as primary biliary cholangitis. I doubt this reflects anything such as autoimmune hepatitis given the minimally elevated AST and ALT as compared to the alkaline phosphatase. I doubt this is related to her statin medication as she had been on it for many years without previous problems. At this point, I would recommend stopping her statin medication, although again I do not think the elevated LFTs are acutely related to that. Nonetheless, I would recommend stopping it given its potential for hepatotoxicity. I have ordered complete autoimmune studies in regard to primary biliary cholangitis and other autoimmune liver diseases. I will continue to follow her CBC. I did order a sedimentation rate and C-reactive protein as well. I did order a GGT to further assess her liver and the elevated alkaline phosphatase. If the abdominal CT scan does show evidence of biliary disease not previously appreciated on the CTA of the chest, we may then want to order an MRCP for further evaluation as well. I do not think she needs any type of endoscopic intervention given her Hemoccult-negative stool, her recent colonoscopy from just less than 1 year ago, and no signs of gastrointestinal bleeding. This has all been discussed with the patient and her daughter in detail. Thank you for the consultation. MD ELISEO Reardon/GARY / [phone] MTDYuliana
[2023-09-03] MEDS: Acetaminophen 325 MG TABLET 975 MG PO ×2 (06:26→12:25)
[2023-09-03 07:24] LABS: Alanine Aminotransferase 76 U/L (0-31); Albumin Level 2.9 g/dL (3.5-5.0); Alkaline Phosphatase 528 U/L (39-117); Anion Gap 14 (12-20); Aspartate Amino Transferase 85 U/L (5-31); Bilirubin Direct 0.6 mg/dL (0.0-0.5); Bilirubin Total 1.1 mg/dL (0.0-1.0); Blood Urea Nitrogen 24 mg/dL (9-16); C Reactive Protein 28.92 mg/dL (< or = 0.50); Carbon Dioxide 28 mmol/L (22-29); Chloride 97 mmol/L (96-108); Creatinine Clr Calc Pharmacy 55.3; Estimated Glomerular Filt Rate > 60; Gamma Glutamyl Transpeptidase 181 U/L (7-33); Glucose Fasting 123 mg/dL (60-99); Potassium 4.4 mmol/L (3.3-5.1); Sodium 135 mmol/L (135-145); Total Protein 6.3 g/dL (6.5-8.0)
[2023-09-03 07:34] LABS: Glucose, Whole Blood 116 mg/dL (60-115)
[2023-09-03] MEDS: Aspirin Enteric Coated 81 MG TABLET.DR PO (07:47)
[2023-09-03] MEDS: Cholecalciferol (Vitamin D3) 25 MCG TABLET PO (07:47)
[2023-09-03] MEDS: Metoprolol Succinate ER 50 MG TAB.ER.24H PO (07:47)
[2023-09-03] MEDS: 0.9 % Sodium Chloride Flush 3 ML SYRINGE IVFLUSH ×3 (07:48→20:44)
[2023-09-03] MEDS: Multivitamin TABLET 1 TAB PO (07:48)
[2023-09-03 08:09] LABS: Erythrocyte Sedimentation Rate 95 MM/HR (0-20)
--- NOTE | 2023-09-03 10:25 | MHC.CM.PN ---
PervROUNDS discussion, Patient is not yet medically cleared for dc (worsening liver function); home is the goal and CM will continue to follow.
[2023-09-03 11:21] LABS: Glucose, Whole Blood 224 mg/dL (60-115)
[2023-09-03] MEDS: Insulin Lispro 100 UNIT/ML 3 ML VIAL SUBCUT ×3 (12:17→20:43)
--- NOTE | 2023-09-03 12:46 | PM.HEMONCPN ---
Medical Summary - Medical Summary Date of Service: 09/03/23 Chief complaint: Weakness/palpitation Primary Care Provider: Li Whitehead MD Medical Summary: Diagnosis: Abnormal LFTs/normocytic anemia Patient admitted for near syncope, found to be in sinus tachycardia. Patient was treated for left breast cancer 24 years ago. She underwent lumpectomy followed by radiation therapy and 5 years of tamoxifen. She did not receive chemotherapy. She underwent hysterectomy around the same time. This no family history of breast cancer or any other cancers that she can recall. No family history of diabetes either. Evaluation in the emergency department revealed leukocytosis of 11.0. Normocytic anemia with h/h 10.3/29.9%. Renal fx normal, lytes normal except for Na 134, Ca 10.7. Glucose 133. Initial trop 17.3, repeat 24.8. EKG shows sinus tach, no acute ischemic changes. Head CT negative for acute intracranial abnormality. CTA chest negative for PE, shows pleural parenchymal irregularity along the anterior/anterolateral aspect of the ELISA with punctate calcifications with bilateral pulmonary nodules. Interval History Interval history: Jaclyn Looney is a 73 year old female who is admitted for progressive weakness and findings of elevated D-dimer and sinus tachycardia. Patient states that for the last 2 weeks she has been getting weaker with reports of palpitation and dizziness. She almost fainted over the weekend when she was doing yard work. She has been experiencing palpitations and occasional chest pain. She has had poor appetite and unintentional weight loss. She was recently diagnosed with type 2 diabetes and was started on metformin. Patient was treated for left breast cancer 24 years ago. She underwent lumpectomy followed by radiation therapy and 5 years of tamoxifen. She did not receive chemotherapy. She underwent hysterectomy around the same time. This no family history of breast cancer or any other cancers that she can recall. No family history of diabetes either. Evaluation in the emergency department revealed leukocytosis of 11.0. Normocytic anemia with h/h 10.3/29.9%. Renal fx normal, lytes normal except for Na 134, Ca 10.7. Glucose 133. Initial trop 17.3, repeat 24.8. EKG shows sinus tach, no acute ischemic changes. Head CT negative for acute intracranial abnormality. CTA chest negative for PE, shows pleural parenchymal irregularity along the anterior/anterolateral aspect of the ELISA with punctate calcifications with bilateral pulmonary nodules. Patient is doing about the same, has undergone more testing. She feels scared and worried denies any acute complaints such as chest pain or shortness of breath. No fever or chills. Review of Systems - Neurologic Reports system reviewed and no additional complaints, except as documented, Reports as per [facility] Medical History: Medical History (Last Updated 08/31/23 @ 12:43 by RAHAT Thomas) Cancer of breast Chest pain Hyperlipidemia Irregular heart beat Kidney stone Type 2 diabetes mellitus with hyperglycemia, without long-term current use of insulin Family History: Family History (Last Updated 08/19/23 @ 09:54 by Li Whitehead MD) Mother Tuberculosis Brother Myocardial infarction, Onset Age: 55 Skin cancer Father Skin cancer Surgical History: Surgical History (Last Reviewed 08/19/23 @ 09:51 by Li Whitehead MD) H/O colonoscopy History of lumpectomy of left breast History of surgery on arm Hx of thumb surgery S/P JUSTNI (total abdominal hysterectomy) Social History: Social History (Last Reviewed 08/19/23 @ 09:54 by Li Whitehead MD) Living Situation History: Household Members: Spouse Housing: House Do you presently have visiting nurse or other home services: No Alcohol History Details: 1. How often do you have a drink containing alcohol?: a. Never AUDIT-C Alcohol total score: 0 Currently Displaying Signs/Symptoms of Alcohol Withdrawal: No Tobacco History: Patient Tobacco Use Status: Never used Tobacco Tobacco use type: Cigarette Smoked in Last 30 Days: No e-Cigarette/Vaping Use: Never Used Second Hand Smoke Exposure: No Substance Use History: Use of substances other than those prescribed or required for medical reasons: No Currently Displaying Signs/Symptoms of Drug Intoxication Withdrawal: No Domestic Abuse History: Have you been hit, kicked, punched, or otherwise hurt by someone within the past year? If so, by whom?: No Do you feel safe in your current relationship?: Yes Is there a partner from a previous relationship who is making you feel unsafe now?: No Are you made to feel afraid or neglected: No Advance Directives: Advance Directives: No Advance Directives Information Provided: No Homicidal Assessment: Do you have a plan to hurt others: No Plan Nutrition Assessment: Recently lost weight without trying: Yes How much weight loss: Unsure Eating poorly because of decreased appetite: Yes Nutrition screen score: 5 Nutrition Risks: Poor intake 0-25% >4 days Patient : No : No Poor oral hygiene: No Occupation Assessmet: service: No Current occupational status: retired Home Medications and Allergies Current Medications: Current Medications Acetaminophen (Acetaminophen 325 Mg Tablet) 975 mg PO Q6H PRN PRN Reason: mild pain, headche or fever Last Admin: 09/03/23 12:25 Dose: 975 mg Aspirin (Aspirin Enteric Coated 81 Mg Tablet.Dr) 81 mg PO DAILY [facility] Last Admin: 09/03/23 07:47 Dose: 81 mg Benzocaine (Throat Lozenge, Medicated Lozenge) 1 lozenge MUCOUS MEM Q2H PRN PRN Reason: Sore Throat Last Admin: 09/02/23 10:52 Dose: 1 lozenge Glucose (Glucose Gel 15 Gm Gel..Gram.) 15 gm PO Q15M PRN; Protocol PRN Reason: per Hypoglycemia Standing Ord. Dextrose (D10) 250 mls @ 750 mls/hr IV Q15M PRN; Protocol PRN Reason: per Hypoglycemia Standing Ord. Insulin Human Lispro (Insulin Lispro 100 Unit/Ml 3 Ml Vial) 0 unit SUBCUT QIDACHS [facility]; Protocol Last Admin: 09/03/23 12:17 Dose: 4 unit Magnesium Hydroxide (Milk Of Magnesia 30 Ml Oral.Susp) 30 ml PO DAILY PRN PRN Reason: Constipation Last Admin: 09/02/23 19:01 Dose: 30 ml Metoprolol Succinate (Metoprolol Succinate Er 50 Mg Tab.Er.24h) 50 mg PO DAILY [facility]; Protocol Last Admin: 09/03/23 07:47 Dose: 50 mg Morphine Sulfate (Morphine Sulfate 2 Mg/Ml Cartridge) 2 mg IVPUSH Q4H PRN; Protocol PRN Reason: Pain, Severe (Pain Scale 7-10) Last Admin: 09/01/23 03:47 Dose: 2 mg Multivitamins/Vitamin C (Multivitamin Tablet) 1 tab PO DAILY [facility] Last Admin: 09/03/23 07:48 Dose: 1 tab Nitroglycerin (Nitroglycerin 0.4 Mg Tab.Subl) 0.4 mg SUBLINGUAL Q5MX3 PRN PRN Reason: Chest Pain Last Admin: 09/01/23 04:43 Dose: 0.4 mg Ondansetron HCl (Ondansetron Hcl 4 Mg/2 Ml Vial) 4 mg IVPUSH Q8H PRN PRN Reason: Nausea and Vomiting Last Admin: 09/01/23 04:49 Dose: 4 mg Sodium Chloride (0.9 % Sodium Chloride Flush 3 Ml Syringe) 3 ml IVFLUSH QSHIFT [facility] Last Admin: 09/03/23 07:48 Dose: 3 ml Vitamin D (Cholecalciferol (Vitamin D3) 25 Mcg Tablet) 25 mcg PO DAILY [facility] Last Admin: 09/03/23 07:47 Dose: 25 mcg Home Medications ?Medication ?Instructions ?Recorded ?Confirmed ?Type lovastatin 20 mg tablet 20 mg PO DAILY 01/13/23 08/31/23 History metoprolol succinate 50 mg 50 mg PO DAILY 08/19/23 08/31/23 History tablet,extended release 24 hr cholecalciferol (vitamin D3) 25 25 mcg PO DAILY 08/31/23 08/31/23 History mcg (1,000 unit) tablet (Vitamin D3) multivitamin 1 tab PO DAILY 08/31/23 08/31/23 History Allergies Allergy/AdvReac Type Severity Reaction Status Date / Time sulfamethoxazole Allergy Intermediate HIVES Verified 08/31/23 01:50 [From Bactrim] trimethoprim [From Bactrim] Allergy Intermediate HIVES Verified 08/31/23 01:50 amoxicillin [Amoxicillin] Allergy Mild RASH Verified 08/31/23 01:50 Sulfa (Sulfonamide Allergy Unknown Hives Verified 08/31/23 01:50 Antibiotics) Exam Vital signs: Vital Signs Temp 97.1 F 09/03/23 11:23 Pulse 92 09/03/23 11:23 Resp 20 09/03/23 11:23 BP 133/61 09/03/23 11:23 Pulse Ox 98 09/03/23 11:23 O2 Del Method Room Air 09/03/23 11:23 O2 Flow Rate 2 09/02/23 00:00 Intake & Output 09/02/23 09/03/23 09/03/23 18:59 06:59 18:59 Intake Total 240 / 680 440 / 680 Balance 240 / 680 440 / 680 Intake: Intake, Oral Amount 240 / 680 440 / 680 Other: Breakfast % Eaten 100% Number of Unmeasured Voids 2 2 Urine Bathroom Bathroom Urine Color Yellow Last Bowel Movement 08/31/23 Weight 63 kg BMI result Body Mass Index 23.1 - Constitutional Present: no acute distress - Routine Respiratory Exam Present: CTAB - Routine Cardiovascular Exam Cardiovascular: Present: S1, S2, tachycardia - Routine Abdominal Exam Present: soft. Absent: mass Data - Labs CBC & Chem 7: 09/05/23 06:38 09/05/23 06:38 Labs: Laboratory Last Values WBC 7.6 X10*3/uL (4.8-10.8) 09/02/23 07:02 RBC 3.36 X10*6/uL (4.20-5.50) L 09/02/23 07:02 Hgb 9.7 g/dl (12.0-16.0) L 09/02/23 07:02 Hct 28.4 % (37.0-47.0) L 09/02/23 07:02 MCV 84.5 fL (80.0-98.0) 09/02/23 07:02 MCH 28.9 pg (27.0-33.0) 09/02/23 07:02 MCHC 34.2 g/dl (31.0-35.0) 09/02/23 07:02 RDW 14.1 % (11.0-16.0) 09/02/23 07:02 Plt Count 150 X10*3/uL (160-400) L 09/02/23 07:02 MPV 9.6 fL (9.4-12.3) 09/02/23 07:02 Immature Gran % (Auto) Cancelled 09/02/23 07:02 Neut % (Auto) Cancelled 09/02/23 07:02 Lymph % (Auto) Cancelled 09/02/23 07:02 [place] % (Auto) Cancelled 09/02/23 07:02 Eos % (Auto) Cancelled 09/02/23 07:02 Baso % (Auto) Cancelled 09/02/23 07:02 Lymph # (Auto) Cancelled 09/02/23 07:02 [place] # (Auto) Cancelled 09/02/23 07:02 Eos # (Auto) Cancelled 09/02/23 07:02 Baso # (Auto) Cancelled 09/02/23 07:02 Abs Immat Gran (auto) Cancelled 09/02/23 07:02 Absolute Neuts (auto) Cancelled 09/02/23 07:02 Absolute Nucleated RBC 0.000 X10*3/uL (0.0-0.012) 09/02/23 07:02 Nucleated RBC % (auto) 0.0 /100WBC (0.0-0.2) 09/02/23 07:02 Neutrophils % (Manual) 87 % (45-73) H 09/02/23 07:02 Band Neutrophils % 5 % (3-5) 09/02/23 07:02 Lymphocytes % (Manual) 3 % (20-40) L 09/02/23 07:02 Atypical Lymphs % (Man) 2 % (0-6) 08/31/23 02:15 Monocytes % (Manual) 4 % (2-11) 09/02/23 07:02 Eosinophils % (Manual) 1 % (0-4) 08/31/23 02:15 Metamyelocytes % 1 % 09/02/23 07:02 Abs Neuts (Manual) 7.0 X10*3/uL (2.0-8.3) 09/02/23 07:02 Lymphocytes # (Manual) 0.2 X10*3/uL (1.2-4.9) L 09/02/23 07:02 Atyp Lymphs # (Manual) 0.2 x10*3/uL 08/31/23 02:15 Monocytes # (Manual) 0.3 X10*3/uL (0.1-1.2) 09/02/23 07:02 Eosinophils # (Manual) 0.1 X10*3/uL (0.0-0.4) 08/31/23 02:15 Metamyelocytes # 0.1 X10*3/uL 09/02/23 07:02 Toxic Vacuolation PRESENT 08/31/23 02:15 Platelet Estimate SLIGHTLY DECREASED (NORMAL) 09/02/23 07:02 Plt Morphology Comment NORMAL 09/02/23 07:02 RBC Morphology NORMAL 09/02/23 07:02 Smear Path Review Cancelled 09/02/23 10:25 ESR 95 MM/HR (0-20) H 09/03/23 06:12 Absolute Retic 0.029 X10*6/uL (0.026-0.095) 09/02/23 07:02 Percent Retic 0.9 % (0.5-1.8) 09/02/23 07:02 Immature Retic Fraction 15.3 % (3.0-15.9) 09/02/23 07:02 Retic Hgb Equivalent 29.6 pg (30.0-35.0) L 09/02/23 07:02 Hold Purple Top SEE NOTE 08/31/23 12:47 PT 13.0 SEC (11.1-13.3) 08/31/23 08:08 INR 1.1 (0.9-1.1) 08/31/23 08:08 D-Dimer High Sensitivty 2460 NG/ML 08/31/23 08:08 Sodium 135 mmol/L (135-145) 09/03/23 06:12 Potassium 4.4 mmol/L (3.3-5.1) 09/03/23 06:12 Chloride 97 mmol/L (96-108) 09/03/23 06:12 Carbon Dioxide 28 mmol/L (22-29) 09/03/23 06:12 Anion Gap 14 (12-20) 09/03/23 06:12 BUN 24 mg/dL (9-16) H 09/03/23 06:12 Creatinine 0.84 mg/dL (0.5-1.4) 09/03/23 06:12 Estim Creat Clear Calc 55.3 09/03/23 06:12 Estimated GFR > 60 09/03/23 06:12 POC Glucose 224 mg/dL (60-115) H 09/03/23 11:16 Random Glucose 113 mg/dL (60-115) 09/02/23 07:02 Fasting Glucose 123 mg/dL (60-99) H 09/03/23 06:12 Calcium 10.0 mg/dL (8.4-10.2) 09/03/23 06:12 Iron 28 mcg/dL (30-160) L 09/02/23 07:02 TIBC 135 mcg/dL (228-428) L 09/02/23 07:02 % Saturation 21 % (15-50) 09/02/23 07:02 Unsat Iron Binding 107 ug/dL 09/02/23 07:02 Ferritin > 1676 ng/mL (10-250) H 09/02/23 07:02 Total Bilirubin 1.1 mg/dL (0.0-1.0) H 09/03/23 06:12 Direct Bilirubin 0.6 mg/dL (0.0-0.5) H 09/03/23 06:12 GGT 181 U/L (7-33) H 09/03/23 06:12 AST 85 U/L (5-31) H 09/03/23 06:12 ALT 76 U/L (0-31) H 09/03/23 06:12 Alkaline Phosphatase 528 U/L (39-117) H 09/03/23 06:12 Lactate Dehydrogenase 1150 U/L (122-220) H 09/02/23 07:02 Troponin I High Sens 20.3 ng/L (<3.5-17.0) H 09/01/23 04:39 C-Reactive Protein 28.92 mg/dL (< or = 0.50) H 09/03/23 06:12 Total Protein 6.3 g/dL (6.5-8.0) L 09/03/23 06:12 Albumin 2.9 g/dL (3.5-5.0) L 09/03/23 06:12 Vitamin B12 569 pg/mL (200-900) 09/02/23 07:02 Folate 12.6 ng/mL (> or = 4.0) 09/02/23 07:02 TSH 0.42 uIU/mL (0.32-4.0) 09/01/23 04:39 Urine Color Yellow 08/31/23 12:14 Urine Appearance Clear 08/31/23 12:14 Urine pH 6.5 (5.0-9.0) 08/31/23 12:14 Ur Specific [place] >= 1.030 (1.005-1.025) H 08/31/23 12:14 Urine Protein 30 (1+) mg/dL (Neg-Trace) H 08/31/23 12:14 Urine Glucose (UA) Negative mg/dL (Negative) 08/31/23 12:14 Urine Ketones 15 mg/dL (Negative) 08/31/23 12:14 Urine Blood Trace (Negative) H 08/31/23 12:14 Urine Nitrite Negative (Negative) 08/31/23 12:14 Ur Leukocyte Esterase Negative (Negative) 08/31/23 12:14 Urine RBC 3-5 /HPF (0-2) H 08/31/23 12:14 Urine WBC 0-5 /HPF (0-5) 08/31/23 12:14 Ur Squamous Epith Cells 0-2 /HPF (0-2) 08/31/23 12:14 Urine Bacteria None Seen (None Seen) 08/31/23 12:14 Hyaline Casts 0-2 /LPF (0-2) 08/31/23 12:14 Stool Occult Blood NEGATIVE (NEGATIVE) 08/31/23 08:23 Respiratory Panel Schneider See Note 09/02/23 13:33 Adenovirus (Rapid PCR) Not Detected (Not Detect.) 09/02/23 13:33 B.pert (TEM-PCR) Not Detected (Not Detect.) 09/02/23 13:33 B.parapertussis DNA PCR Not Detected (Not Detect.) 09/02/23 13:33 C. pneumoniae DNA (PCR) Not Detected (Not Detect.) 09/02/23 13:33 Coronavirus OC43 (PCR) Not Detected (Not Detect.) 09/02/23 13:33 Coronavirus HKU1 (PCR) Not Detected (Not Detect.) 09/02/23 13:33 Coronavirus 229E (PCR) Not Detected (Not Detect.) 09/02/23 13:33 Coronavirus NL63 (PCR) Not Detected (Not Detect.) 09/02/23 13:33 Hepatitis A IgM Ab Nonreactive (Nonreactive) 09/02/23 09:53 Hep Bs Antigen Negative (Negative) 09/02/23 09:53 Hep Bs Antibody NONREACTIVE (Nonreactive) 09/02/23 09:53 Hep B Core Total Ab Nonreactive (Nonreactive) 09/02/23 09:53 Hepatitis C Ab (EIA) Nonreactive (Nonreactive) 09/02/23 09:53 Human Metapneumovir PCR Not Detected (Not Detect.) 09/02/23 13:33 Influenza A (RT-PCR) Not Detected (Not Detect.) 09/02/23 13:33 Influenza B (RT-PCR) Not Detected (Not Detect.) 09/02/23 13:33 M. pneumoniae (PCR) Not Detected (Not Detect.) 09/02/23 13:33 Parainfluenza 1 (PCR) Not Detected (Not Detect.) 09/02/23 13:33 Parainfluenza 2 (PCR) Not Detected (Not Detect.) 09/02/23 13:33 Parainfluenza 3 (PCR) Not Detected (Not Detect.) 09/02/23 13:33 Parainfluenza 4 (PCR) Not Detected (Not Detect.) 09/02/23 13:33 RSV (PCR) Not Detected (Not Detect.) 09/02/23 13:33 Entero/Rhino (PCR) Not Detected (Not Detect.) 09/02/23 13:33 SARS-CoV-2 RNA (RT-PCR) Not Detected (Not Detect.) 09/02/23 13:33 - Imaging Radiologist's impression: ITS Impressions Chest X-Ray 08/31/23 02:03 IMPRESSION: No focal consolidation. Suggestion of mild central peribronchial thickening which may reflect airways disease. Head CT 08/31/23 06:42 IMPRESSION: No acute intracranial abnormality including hemorrhage, mass effect, hydrocephalus, or acute territorial edematous infarction. Chest CTA 08/31/23 09:21 IMPRESSION: 1. No pulmonary emboli. 2. Pleural parenchymal irregularity along the anterior/anterolateral aspect of the left upper lobe with punctate calcifications, unclear etiology though may reflect infectious/inflammatory etiology versus fibrotic changes versus sequela of prior surgery/pleurodesis or radiation. Correlation with past medical history. 3. Bilateral pulmonary nodules the largest measuring up to 3 mm. Follow-up as per Fleischner criteria. 4. Decreased hepatic attenuation suggesting hepatic steatosis. 5. Small hiatal hernia. Various management parameters for solitary pulmonary nodules are in the literature. According to the Fleischner Society, recommendations for pulmonary nodules are as follows: According to the UPDATED 2017 Fleischner Society recommendations, the advised follow-up imaging for solid nodules < 6 mm is: LOW RISK PATIENT: No routine follow-up. Abdomen/Pelvis CT 09/02/23 14:35 IMPRESSION: 1. Interval development of Wedge-shaped airspace disease with air bronchograms in the right lower lobe contiguous with crescent-shaped dependent atelectasis along the posterior pleural border. 2. The current contrast enhanced examination shows Markedly mottled nephrogram with numerous irregular hypoenhancement in bilateral kidneys. Differential diagnosis include parenchymal renal disease or multifocal pyelonephritis. 3. Interval increase in size and number of Multiple left renal calculi. Unchanged superior medial left upper renal pole simple cyst, for which no follow up imaging is recommended. 4. Unchanged status post hysterectomy. Fleischner guidelines were followed. Assessment and Plan Patient Active problem list reviewed?: Yes (1) Anemia Status: Acute Assessment and plan: 1. This is a pleasant 73-year-old woman with remote history of left breast cancer now presenting with mild normocytic anemia, new onset diabetes, elevated liver enzymes and LDH worrisome for underlying malignancy. CT angiogram of chest was negative for pulmonary embolism. D-dimer is elevated. Ferritin another marker of inflammation is also high. LDH is over 1100. Normal vitamin B12 and folate levels. Peripheral smear evaluation shows no abnormal cells to suggest acute hematological process such as leukemia. Her kidney functions are stable, she does not have significant thrombocytopenia, no evidence of hemolysis. She has had a colonoscopy in 2022 which showed benign polyps. She had CT abdomen/pelvis with contrast on 09/02/2023 which showed normal liver, spleen and pancreas. Mottled nephrogram suggestive of parenchymal renal disease or multifocal pyelonephritis, left renal calculi, status post hysterectomy. Unfortunately, her LFTs continue to rise, C-reactive protein is 28. LDH is over a 1000. Workup for autoimmune hepatitis is underway. Further recommendations as per Dr. Gould. Her anemia and thrombocytopenia is probably manifestation of this ongoing liver disease. - Time Spent With Patient Time Spent with Patient (in minutes): 15
[2023-09-03 12:57] LABS: Lactate Dehydrogenase 1119 U/L (122-220)
--- NOTE | 2023-09-03 14:00 | HO.PM.IMPN ---
Subjective Subjective Date of Service: 09/03/23 Interval History: elevated lfts Review of Systems feels some nause a also has some sob with excersion Denies any urinary complaints or abdominal pain or fever or chills. Physical Exam Vital Signs: Vital Signs: Last Vital Signs Temp 97.1 F 09/03/23 11:23 Pulse 92 09/03/23 11:23 Resp 20 09/03/23 11:23 BP 133/61 09/03/23 11:23 Pulse Ox 98 09/03/23 11:23 O2 Del Method Room Air 09/03/23 11:23 O2 Flow Rate 2 09/02/23 00:00 BMI result Body Mass Index 23.1 General: AO X 3, no acute distress Resp: CTA bilateral CVS: S1,S2,RRR GI: +BS, NT, no distention Skin: No rash Neuro: motor grossly intact Psych: appropriate affect MIREILLEMichelle who has the rehabilitation caseworker Objective Data Active Medications Acetaminophen (Acetaminophen 325 Mg Tablet) 975 mg PO Q6H PRN PRN Reason: mild pain, headche or fever Last Admin: 09/03/23 12:25 Dose: 975 mg Documented By: IQRA Aspirin (Aspirin Enteric Coated 81 Mg Tablet.) 81 mg PO DAILY [facility] Last Admin: 09/03/23 07:47 Dose: 81 mg Documented By: IQRA Benzocaine (Throat Lozenge, Medicated Lozenge) 1 lozenge MUCOUS MEM Q2H PRN PRN Reason: Sore Throat Last Admin: 09/02/23 10:52 Dose: 1 lozenge Documented By: FRANKY Glucose (Glucose Gel 15 Gm Gel..Gram.) 15 gm PO Q15M PRN; Protocol PRN Reason: per Hypoglycemia Standing Ord. Dextrose (D10) 250 mls @ 750 mls/hr IV Q15M PRN; Protocol PRN Reason: per Hypoglycemia Standing Ord. Insulin Human Lispro (Insulin Lispro 100 Unit/Ml 3 Ml Vial) 0 unit SUBCUT QIDACHS [facility]; Protocol Last Admin: 09/03/23 12:17 Dose: 4 unit Documented By: IQRA Magnesium Hydroxide (Milk Of Magnesia 30 Ml Oral.Susp) 30 ml PO DAILY PRN PRN Reason: Constipation Last Admin: 09/02/23 19:01 Dose: 30 ml Documented By: FRANKY Metoprolol Succinate (Metoprolol Succinate Er 50 Mg Tab.Er.24h) 50 mg PO DAILY [facility]; Protocol Last Admin: 09/03/23 07:47 Dose: 50 mg Documented By: IQRA Morphine Sulfate (Morphine Sulfate 2 Mg/Ml Cartridge) 2 mg IVPUSH Q4H PRN; Protocol PRN Reason: Pain, Severe (Pain Scale 7-10) Last Admin: 09/01/23 03:47 Dose: 2 mg Documented By: ANITHA Multivitamins/Vitamin C (Multivitamin Tablet) 1 tab PO DAILY [facility] Last Admin: 09/03/23 07:48 Dose: 1 tab Documented By: IQRA Nitroglycerin (Nitroglycerin 0.4 Mg Tab.Subl) 0.4 mg SUBLINGUAL Q5MX3 PRN PRN Reason: Chest Pain Last Admin: 09/01/23 04:43 Dose: 0.4 mg Documented By: ANITHA Ondansetron HCl (Ondansetron Hcl 4 Mg/2 Ml Vial) 4 mg IVPUSH Q8H PRN PRN Reason: Nausea and Vomiting Last Admin: 09/01/23 04:49 Dose: 4 mg Documented By: ANITHA Sodium Chloride (0.9 % Sodium Chloride Flush 3 Ml Syringe) 3 ml IVFLUSH QSHIFT [facility] Last Admin: 09/03/23 07:48 Dose: 3 ml Documented By: IQRA Vitamin D (Cholecalciferol (Vitamin D3) 25 Mcg Tablet) 25 mcg PO DAILY [facility] Last Admin: 09/03/23 07:47 Dose: 25 mcg Documented By: IQRA Labs 09/02/23 07:02 09/03/23 06:12 Labs: Laboratory Results - last 24 hr 09/02/23 09/02/23 09/02/23 13:33 16:14 19:51 ESR Anion Gap Estim Creat Clear Calc Estimated GFR POC Glucose 297 H 191 H Fasting Glucose Calcium Total Bilirubin Direct Bilirubin GGT AST ALT Alkaline Phosphatase Lactate Dehydrogenase C-Reactive Protein Total Protein Albumin Respiratory Panel Schneider See Note Adenovirus (Rapid PCR) Not Detected B.pert (TEM-PCR) Not Detected B.parapertussis DNA PCR Not Detected C. pneumoniae DNA (PCR) Not Detected Coronavirus OC43 (PCR) Not Detected Coronavirus HKU1 (PCR) Not Detected Coronavirus 229E (PCR) Not Detected Coronavirus NL63 (PCR) Not Detected Human Metapneumovir PCR Not Detected Influenza A (RT-PCR) Not Detected Influenza B (RT-PCR) Not Detected M. pneumoniae (PCR) Not Detected Parainfluenza 1 (PCR) Not Detected Parainfluenza 2 (PCR) Not Detected Parainfluenza 3 (PCR) Not Detected Parainfluenza 4 (PCR) Not Detected RSV (PCR) Not Detected Entero/Rhino (PCR) Not Detected SARS-CoV-2 RNA (RT-PCR) Not Detected 09/03/23 09/03/23 09/03/23 06:12 07:25 11:16 ESR 95 H Anion Gap 14 Estim Creat Clear Calc 55.3 Estimated GFR > 60 POC Glucose 116 H 224 H Fasting Glucose 123 H Calcium 10.0 Total Bilirubin 1.1 H Direct Bilirubin 0.6 H GGT 181 H AST 85 H ALT 76 H Alkaline Phosphatase 528 H Lactate Dehydrogenase 1119 H C-Reactive Protein 28.92 H Total Protein 6.3 L Albumin 2.9 L Respiratory Panel Schneider Adenovirus (Rapid PCR) B.pert (TEM-PCR) B.parapertussis DNA PCR C. pneumoniae DNA (PCR) Coronavirus OC43 (PCR) Coronavirus HKU1 (PCR) Coronavirus 229E (PCR) Coronavirus NL63 (PCR) Human Metapneumovir PCR Influenza A (RT-PCR) Influenza B (RT-PCR) M. pneumoniae (PCR) Parainfluenza 1 (PCR) Parainfluenza 2 (PCR) Parainfluenza 3 (PCR) Parainfluenza 4 (PCR) RSV (PCR) Entero/Rhino (PCR) SARS-CoV-2 RNA (RT-PCR) Assessment and Plan (1) Abnormal LFTs: Status: Acute Plan 73 year old female with history of type 2 diabetes, hld, hx breast cancer 1990s to be observed for chest pain Chest pain- seems atypical, troponin i mildly high but flat -initial trop 17-->24-->20. EKG without actue ischemic changes, negative PE bt CTA -cardiology input noted, echo, continue ASA, statin for now Tachycardia--imrpoving,likely relaed to anxiety, TSH is normal. Near syncope: unclear etiology echo:The left ventricular systolic function is normal. The calculated ejection fraction is 70% by biplane method. - No obvious valvular pathology seen on this study. tele -tachy -?anxiety -head ct negative for acute intracranial abn -plan as above Anemia--cbc reviewed by Hematology- no abnormal cells to suggest acute hematological process such as leukemia Elevated LFTs trending up, LDH similar: ct abd /pelvis with contrast-liver/pancreas seems fine ct abd -lung changes seems moslty similar to previous cta-possible atelactasis ,fibrosis changes from previous radiation treatment -added nebs ,incentive spriometry ,oob ,get abg. also shows b/l renal parenchymal chnages vs pyelo: patient denies urinary c/o will add ua hold statin due to elevated lft's elevated crp,esr ,lft's -seen by Gi-liver studies added for ?Pbc: Immunoglobulin subclasses,adali titer,anti-mitochondrial ,anti smooth muscle ab. Nauseated: P.o. intake is low, continue Zofran. Chronic tension headaches-head ct negative for acute intracranial abn -trial imitrex -outpt follow up dm type 2 diabetes with hyperglycemia: fs 200's -hgb a1c 6.9% -poc glucose, diabetic diet -admelog ss, hold metformin HLD-statin dvt prophylaxis- lovenox full code. Ongoing hospitalization need: Decreased p.o. intake, nausea, elevated LFT need further workup and GI input as well as CT abdomen due to concern of pancreatic malignancy,workup for dyspnea. Quality Stroke Does the patient have a stroke diagnosis?: No VTE Prior VTE?: No VTE Risk Level:: Medical - moderate - high VTE Device Contraindication: Treatment Not Indicated VTE Drug Contraindication: N/A - Med Ordered
[2023-09-03 15:21] LABS: ABG Base Excess 7.7 mmol/L; ABG HCO3 30 mmol/L (22-26); ABG pCO2 34 mmHg (32-45); ABG pH 7.54 (7.35-7.45); ABG pO2 99 mmHg (83-108)
[2023-09-03 15:55] LABS: Appearance Urine Cloudy; Color Urine Dark Yellow; Glucose Urine UA Negative (Negative); Leukocyte Esterase Urine Small (1+) (Negative); Nitrite Urine Negative (Negative); UMIC TRIGGER UA YES; Urine Blood Trace (Negative); Urine Ketones Negative (Negative); Urine Protein 100 (2+) mg/dL (Neg-Trace)
[2023-09-03 16:18] LABS: Bacteria Urine 4+ (None Seen)
[2023-09-03 16:25] LABS: Glucose, Whole Blood 169 mg/dL (60-115)
[2023-09-03] MEDS: polyethylene glycoL 3350 17 GM POWD.PACK PO (17:20)
[2023-09-03] MEDS: Morphine Sulfate 2 MG/ML CARTRIDGE IVPUSH (17:20)
--- NOTE | 2023-09-03 18:34 | PM.EVENT ---
Event Note Date of Service: 09/03/23 Event Note: GI-Course noted re: rising Alk phos and elevated GGT, ESR, and CRP. The CT does not show any Liver/Pancreas/Biliary abnormalities. This all makes some type of hepatic autoimmune/inflammatory process possible; an infectious or neoplastic process involving the biliary tree is another possibility, Rec: MRCP for further evaluation of biliary tree, check blood cultures, await autoimmune studies that are pending. She may need a liver biopsy depending on all the results. Thanks Time Spent With Patient Time: Total time managing care of this patient today ____ minutes.
[2023-09-03] MEDS: gadobutroL 7.5 ML VIAL IVPUSH (19:48)
[2023-09-03 20:29] LABS: Glucose, Whole Blood 183 mg/dL (60-115)
[2023-09-03] MEDS: Docusate Sodium 100 MG CAPSULE PO (20:42)
[2023-09-03 22:53] LABS: ABG Refer to POC result
[2023-09-04] VITALS (12 sets, daily range): BP systolic 125–164; BP diastolic 58–72; PULSE 91–120; RESP 12–20; TEMP 36.4–38.5; O2SAT 94–98
[2023-09-04] MEDS: Ibuprofen 200 MG TABLET PO (00:07)
[2023-09-04 07:26] LABS: Hematocrit 28.4 % (37.0-47.0); Hemoglobin 9.6 g/dl (12.0-16.0); Mean Corpuscular HGB Conc 33.8 g/dl (31.0-35.0); Mean Corpuscular Hemoglobin 28.2 pg (27.0-33.0); Mean Corpuscular Volume 83.3 fL (80.0-98.0); Mean Platelet Volume 9.5 fL (9.4-12.3); Platelet Count 114 X10*3/uL (160-400); Red Blood Count 3.41 X10*6/uL (4.20-5.50); Red Cell Distribution Width 14.3 % (11.0-16.0); White Blood Count 4.9 X10*3/uL (4.8-10.8)
[2023-09-04 07:29] LABS: Alanine Aminotransferase 94 U/L (0-31); Albumin Level 2.8 g/dL (3.5-5.0); Alkaline Phosphatase 557 U/L (39-117); Anion Gap 14 (12-20); Aspartate Amino Transferase 111 U/L (5-31); Bilirubin Total 1.8 mg/dL (0.0-1.0); Blood Urea Nitrogen 27 mg/dL (9-16); Carbon Dioxide 27 mmol/L (22-29); Chloride 97 mmol/L (96-108); Creatinine Clr Calc Pharmacy 54.6; Estimated Glomerular Filt Rate > 60; Glucose Random 80 mg/dL (60-115); Lactate Dehydrogenase 1025 U/L (122-220); Potassium 4.3 mmol/L (3.3-5.1); Sodium 134 mmol/L (135-145); Total Protein 6.1 g/dL (6.5-8.0)
[2023-09-04 07:54] LABS: Glucose, Whole Blood 83 mg/dL (60-115)
[2023-09-04] MEDS: Cholecalciferol (Vitamin D3) 25 MCG TABLET PO (11:54)
[2023-09-04] MEDS: Docusate Sodium 100 MG CAPSULE PO (11:54)
[2023-09-04] MEDS: Aspirin Enteric Coated 81 MG TABLET.DR PO (11:54)
[2023-09-04] MEDS: Multivitamin TABLET 1 TAB PO (11:56)
[2023-09-04] MEDS: 0.9 % Sodium Chloride Flush 3 ML SYRINGE IVFLUSH ×3 (11:56→21:56)
[2023-09-04 11:57] LABS: Glucose, Whole Blood 80 mg/dL (60-115)
[2023-09-04] MEDS: Metoprolol Succinate ER 50 MG TAB.ER.24H PO (11:58)
[2023-09-04] MEDS: Sodium Phosphate,Mono-Dibasic 133 ML ENEMA PR (12:14)
--- NOTE | 2023-09-04 14:36 | HO.PM.IMPN ---
Subjective Subjective Date of Service: 09/04/23 Interval History: elevated Lft's ,constipation Review of Systems feels anxious still constipated denies abd pain or urinary c/o Physical Exam Vital Signs: Vital Signs: Last Vital Signs Temp 98.0 F 09/04/23 11:34 Pulse 99 09/04/23 11:58 Resp 20 09/04/23 03:22 BP 142/72 H 09/04/23 11:58 Pulse Ox 97 09/04/23 11:34 O2 Del Method Room Air 09/04/23 11:34 O2 Flow Rate 2 09/02/23 00:00 BMI result Body Mass Index 23.1 General: AO X 3, no acute distress Resp: CTA bilateral CVS: S1,S2,RRR GI: +BS, NT, no distention Skin: No rash Neuro: motor grossly intact Psych: appropriate affect 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 Objective Data Active Medications Acetaminophen (Acetaminophen 325 Mg Tablet) 975 mg PO Q6H PRN PRN Reason: mild pain, headche or fever Last Admin: 09/03/23 12:25 Dose: 975 mg Documented By: IQRA Aspirin (Aspirin Enteric Coated 81 Mg Tablet.) 81 mg PO DAILY [facility] Last Admin: 09/04/23 11:54 Dose: 81 mg Documented By: IQRA Benzocaine (Throat Lozenge, Medicated Lozenge) 1 lozenge MUCOUS MEM Q2H PRN PRN Reason: Sore Throat Last Admin: 09/02/23 10:52 Dose: 1 lozenge Documented By: FRANKY Docusate Sodium (Docusate Sodium 100 Mg Capsule) 100 mg PO BID [facility] Last Admin: 09/04/23 11:54 Dose: 100 mg Documented By: IQRA Glucose (Glucose Gel 15 Gm Gel..Gram.) 15 gm PO Q15M PRN; Protocol PRN Reason: per Hypoglycemia Standing Ord. Dextrose (D10) 250 mls @ 750 mls/hr IV Q15M PRN; Protocol PRN Reason: per Hypoglycemia Standing Ord. Insulin Human Lispro (Insulin Lispro 100 Unit/Ml 3 Ml Vial) 0 unit SUBCUT QIDACHS [facility]; Protocol Last Admin: 09/04/23 12:12 Dose: Not Given Documented By: IQRA Non-Admin Reason: No Insulin Coverage Magnesium Hydroxide (Milk Of Magnesia 30 Ml Oral.Susp) 30 ml PO DAILY PRN PRN Reason: Constipation Last Admin: 09/02/23 19:01 Dose: 30 ml Documented By: FRANKY Metoprolol Succinate (Metoprolol Succinate Er 50 Mg Tab.Er.24h) 50 mg PO DAILY [facility]; Protocol Last Admin: 09/04/23 11:58 Dose: 50 mg Documented By: IQRA Morphine Sulfate (Morphine Sulfate 2 Mg/Ml Cartridge) 2 mg IVPUSH Q4H PRN; Protocol PRN Reason: Pain, Severe (Pain Scale 7-10) Last Admin: 09/03/23 17:20 Dose: 2 mg Documented By: IQRA Multivitamins/Vitamin C (Multivitamin Tablet) 1 tab PO DAILY [facility] Last Admin: 09/04/23 11:56 Dose: 1 tab Documented By: IQRA Nitroglycerin (Nitroglycerin 0.4 Mg Tab.Subl) 0.4 mg SUBLINGUAL Q5MX3 PRN PRN Reason: Chest Pain Last Admin: 09/01/23 04:43 Dose: 0.4 mg Documented By: ANITHA Ondansetron HCl (Ondansetron Hcl 4 Mg/2 Ml Vial) 4 mg IVPUSH Q8H PRN PRN Reason: Nausea and Vomiting Last Admin: 09/01/23 04:49 Dose: 4 mg Documented By: ANITHA Polyethylene Glycol (Polyethylene Glycol 3350 17 Gm Powd.Pack) 17 gm PO DAILY [facility] Last Admin: 09/04/23 11:58 Dose: Not Given Documented By: IQRA Non-Admin Reason: pt refused, fleet enema admin in stead Sodium Biphosphate/Sodium Phosphate (Sodium Phosphate,Rhea-Dibasic 133 Ml Enema) 133 ml MN ONCE PRN PRN Reason: Once Last Admin: 09/04/23 12:14 Dose: 133 ml Documented By: IQRA Sodium Chloride (0.9 % Sodium Chloride Flush 3 Ml Syringe) 3 ml IVFLUSH QSHIFT [facility] Last Admin: 09/04/23 11:56 Dose: 3 ml Documented By: IQRA Vitamin D (Cholecalciferol (Vitamin D3) 25 Mcg Tablet) 25 mcg PO DAILY [facility] Last Admin: 09/04/23 11:54 Dose: 25 mcg Documented By: HO.WRIGHTS Labs 09/04/23 06:22 09/04/23 06:22 Labs: Laboratory Results - last 24 hr 09/03/23 09/03/23 09/03/23 15:11 15:40 16:10 MCV MCH MCHC RDW Plt Count MPV Immature Gran % (Auto) Neut % (Auto) Lymph % (Auto) Rhea % (Auto) Eos % (Auto) Baso % (Auto) Lymph # (Auto) Rhea # (Auto) Eos # (Auto) Baso # (Auto) Abs Immat Gran (auto) Absolute Neuts (auto) Absolute Nucleated RBC Nucleated RBC % (auto) O2 Saturation 99.0 ABG pH at Pt Temp 7.54 H ABG pCO2 at Pt Temp 34 ABG pO2 at Pt Temp 99 ABG HCO3 30 H ABG Base Excess (Actual) 7.7 Anion Gap Estim Creat Clear Calc Estimated GFR POC Glucose 169 H Random Glucose Calcium Total Bilirubin AST ALT Alkaline Phosphatase Lactate Dehydrogenase Total Protein Albumin Urine Color Dark Yellow Urine Appearance Cloudy Urine pH 8.0 Ur Specific Mand[place] 1.020 Urine Protein 100 (2+) H Urine Glucose (UA) Negative Urine Ketones Negative Urine Blood Trace H Urine Nitrite Negative Ur Leukocyte Esterase Small (1+) H Urine RBC 3-5 H Urine WBC 6-10 H Ur Squamous Epith Cells 6-10 Urine Bacteria 4+ Hyaline Casts 3-5 09/03/23 09/04/23 09/04/23 20:25 06:22 07:38 MCV 83.3 MCH 28.2 MCHC 33.8 RDW 14.3 Plt Count 114 L MPV 9.5 Immature Gran % (Auto) Cancelled Neut % (Auto) Cancelled Lymph % (Auto) Cancelled Rhea % (Auto) Cancelled Eos % (Auto) Cancelled Baso % (Auto) Cancelled Lymph # (Auto) Cancelled Rhea # (Auto) Cancelled Eos # (Auto) Cancelled Baso # (Auto) Cancelled Abs Immat Gran (auto) Cancelled Absolute Neuts (auto) Cancelled Absolute Nucleated RBC 0.000 Nucleated RBC % (auto) 0.0 O2 Saturation ABG pH at Pt Temp ABG pCO2 at Pt Temp ABG pO2 at Pt Temp ABG HCO3 ABG Base Excess (Actual) Anion Gap 14 Estim Creat Clear Calc 54.6 Estimated GFR > 60 POC Glucose 183 H 83 Random Glucose 80 Calcium 10.0 Total Bilirubin 1.8 H AST 111 H ALT 94 H Alkaline Phosphatase 557 H Lactate Dehydrogenase 1025 H Total Protein 6.1 L Albumin 2.8 L Urine Color Urine Appearance Urine pH Ur Specific [place] Urine Protein Urine Glucose (UA) Urine Ketones Urine Blood Urine Nitrite Ur Leukocyte Esterase Urine RBC Urine WBC Ur Squamous Epith Cells Urine Bacteria Hyaline Casts 09/04/23 11:54 MCV MCH MCHC RDW Plt Count MPV Immature Gran % (Auto) Neut % (Auto) Lymph % (Auto) Rhea % (Auto) Eos % (Auto) Baso % (Auto) Lymph # (Auto) Rhea # (Auto) Eos # (Auto) Baso # (Auto) Abs Immat Gran (auto) Absolute Neuts (auto) Absolute Nucleated RBC Nucleated RBC % (auto) O2 Saturation ABG pH at Pt Temp ABG pCO2 at Pt Temp ABG pO2 at Pt Temp ABG HCO3 ABG Base Excess (Actual) Anion Gap Estim Creat Clear Calc Estimated GFR POC Glucose 80 Random Glucose Calcium Total Bilirubin AST ALT Alkaline Phosphatase Lactate Dehydrogenase Total Protein Albumin Urine Color Urine Appearance Urine pH Ur Specific Mand[place] Urine Protein Urine Glucose (UA) Urine Ketones Urine Blood Urine Nitrite Ur Leukocyte Esterase Urine RBC Urine WBC Ur Squamous Epith Cells Urine Bacteria Hyaline Casts Assessment and Plan (1) Abnormal LFTs: Status: Acute Plan 73 year old female with history of type 2 diabetes, hld, hx breast cancer 1990s to be observed for chest pain Chest pain- seems atypical, troponin i mildly high but flat -initial trop 17-->24-->20. EKG without actue ischemic changes, negative PE bt CTA -cardiology input noted, echo, continue ASA, statin for now Tachycardia--imrpoving,likely relaed to anxiety, TSH is normal. Near syncope: unclear etiology echo:The left ventricular systolic function is normal. The calculated ejection fraction is 70% by biplane method. - No obvious valvular pathology seen on this study. tele -tachy -?anxiety -head ct negative for acute intracranial abn -plan as above,added ativan prn. 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 also shows b/l renal parenchymal chnages vs pyelo: patient denies urinary c/o ua : has some pyuria/hematuria microscopic /bacteruria,send urine cultures ,patient asymptomatic ,Mri-less likely renal infection, defer antibiotics until urine culture report. added nephro eval. hold statin due to elevated lft's ct abd/pevis ,mri- neg for liver /pancreatic dis, hepatitic screen neg elevated crp,esr ,lft's -seen by Gi-liver studies added for ?Pbc: Immunoglobulin subclasses,adali titer,anti-mitochondrial ,anti smooth muscle ab. Gi evaluation noted -need Gi follow up. Chronic tension headaches-head ct negative for acute intracranial abn -trial imitrex -outpt follow up dm type 2 diabetes with hyperglycemia: fs 200's -hgb a1c 6.9% -poc glucose, diabetic diet -admelog ss, hold metformin HLD-statin hold due to elevated lft's. dvt prophylaxis- lovenox full code. Ongoing hospitalization need: Decreased p.o. intake, nausea, elevated LFT need further workup ,Gi eval -may need liver biopsy if does not improve. Quality Stroke Does the patient have a stroke diagnosis?: No VTE Prior VTE?: No VTE Risk Level:: Medical - moderate - high VTE Device Contraindication: Treatment Not Indicated VTE Drug Contraindication: N/A - Med Ordered
[2023-09-04 15:51] LABS: Glucose, Whole Blood 146 mg/dL (60-115)
[2023-09-04] MEDS: Morphine Sulfate 2 MG/ML CARTRIDGE IVPUSH (15:54)
[2023-09-04 20:03] LABS: Glucose, Whole Blood 126 mg/dL (60-115)
--- NOTE | 2023-09-04 21:42 | P.CONNP_ITS ---
History of Present Illness Reason for Consult Consult date: 09/04/23 Reason for consult: Abnormal MRI Chief Complaint Chief complaint: chest pain History of Present Illness Narrative: 73 year old female with history of type 2 diabetes, hld, hx breast cancer 1990s presented to the ED earlier today for evaluation of chest pain. She states for the last 2-3 weeks she has been waking up with lightheadedness and palpitations, takes her HR and it is in the 130s. She sits to rest with resolution of symptoms. With the palpitations and lightheadedness she also reports shortness of breath. She has also had a constant sharp diffuse headache without any visual changes. MRI showed abnormal kidneys; suggestive of pyelo. No clinic signs or symptoms of pyelo ; she has a h/o kidney stones in the past No obstruction noted Review of Systems Constitutional: Denies fever(s) and Denies weight loss Cardiovascular: Denies chest pain Respiratory: Denies cough and Denies hemoptysis Gastrointestinal: Denies abdominal pain, Denies diarrhea and Denies nausea Musculoskeletal: Denies back pain Denies focal weakness PMFSH Past Medical History Medical History (Updated 09/02/23 @ 10:05 by Richelle Vasquez MD) Chest pain Type 2 diabetes mellitus with hyperglycemia, without long-term current use of insulin Irregular heart beat Kidney stone Hyperlipidemia Cancer of breast Family History Family History (Updated 08/19/23 @ 09:54 by Li Whitehead MD) Mother Tuberculosis Brother Myocardial infarction, Onset Age: 55 Skin cancer Father Skin cancer Surgical History Surgical History (Updated 09/02/23 @ 10:05 by Richelle Vasquez MD) H/O colonoscopy History of lumpectomy of left breast Hx of thumb surgery S/P JUSTIN (total abdominal hysterectomy) History of surgery on arm Social History Social History Household Members: Spouse Housing: House Do you presently have visiting nurse or other home services: No Alcohol intake: never Comment: pt compliant with calling for assistance Patient Tobacco Use Status: Never used Tobacco Tobacco use type: Cigarette Smoked in Last 30 Days: No e-Cigarette/Vaping Use: Never Used Second Hand Smoke Exposure: No Use of substances other than those prescribed or required for medical reasons: No Currently Displaying Signs/Symptoms of Drug Intoxication Withdrawal: No Have you been hit, kicked, punched, or otherwise hurt by someone within the past year? If so, by whom?: No Do you feel safe in your current relationship?: Yes Is there a partner from a previous relationship who is making you feel unsafe now?: No Are you made to feel afraid or neglected: No Advance Directives: No Advance Directives Information Provided: No Do you have a plan to hurt others: No Plan Recently lost weight without trying: Yes How much weight loss: Unsure Eating poorly because of decreased appetite: Yes Nutrition screen score: 5 Nutrition Risks: Poor intake 0-25% >4 days Patient : No : No Poor oral hygiene: No service: No Current occupational status: retired Cognitive needs: No Hearing needs: No Vision needs: Yes Meds Allergies Allergy/AdvReac Type Severity Reaction Status Date / Time sulfamethoxazole Allergy Intermediate HIVES Verified 08/31/23 01:50 [From Bactrim] trimethoprim [From Bactrim] Allergy Intermediate HIVES Verified 08/31/23 01:50 amoxicillin [Amoxicillin] Allergy Mild RASH Verified 08/31/23 01:50 Sulfa (Sulfonamide Allergy Unknown Hives Verified 08/31/23 01:50 Antibiotics) Active Medications: Current Medications Acetaminophen (Acetaminophen 325 Mg Tablet) 975 mg PO Q6H PRN PRN Reason: mild pain, headche or fever Last Admin: 09/03/23 12:25 Dose: 975 mg Aspirin (Aspirin Enteric Coated 81 Mg Tablet.Dr) 81 mg PO DAILY [facility] Last Admin: 09/04/23 11:54 Dose: 81 mg Benzocaine (Throat Lozenge, Medicated Lozenge) 1 lozenge MUCOUS MEM Q2H PRN PRN Reason: Sore Throat Last Admin: 09/02/23 10:52 Dose: 1 lozenge Docusate Sodium (Docusate Sodium 100 Mg Capsule) 100 mg PO BID [facility] Last Admin: 09/04/23 21:24 Dose: Not Given Glucose (Glucose Gel 15 Gm Gel..Gram.) 15 gm PO Q15M PRN; Protocol PRN Reason: per Hypoglycemia Standing Ord. Dextrose (D10) 250 mls @ 750 mls/hr IV Q15M PRN; Protocol PRN Reason: per Hypoglycemia Standing Ord. Insulin Human Lispro (Insulin Lispro 100 Unit/Ml 3 Ml Vial) 0 unit SUBCUT QIDACHS [facility]; Protocol Last Admin: 09/04/23 20:27 Dose: Not Given Magnesium Hydroxide (Milk Of Magnesia 30 Ml Oral.Susp) 30 ml PO DAILY PRN PRN Reason: Constipation Last Admin: 09/02/23 19:01 Dose: 30 ml Metoprolol Succinate (Metoprolol Succinate Er 50 Mg Tab.Er.24h) 50 mg PO DAILY [facility]; Protocol Last Admin: 09/04/23 11:58 Dose: 50 mg Morphine Sulfate (Morphine Sulfate 2 Mg/Ml Cartridge) 2 mg IVPUSH Q4H PRN; Protocol PRN Reason: Pain, Severe (Pain Scale 7-10) Last Admin: 09/04/23 15:54 Dose: 2 mg Multivitamins/Vitamin C (Multivitamin Tablet) 1 tab PO DAILY [facility] Last Admin: 09/04/23 11:56 Dose: 1 tab Nitroglycerin (Nitroglycerin 0.4 Mg Tab.Subl) 0.4 mg SUBLINGUAL Q5MX3 PRN PRN Reason: Chest Pain Last Admin: 09/01/23 04:43 Dose: 0.4 mg Ondansetron HCl (Ondansetron Hcl 4 Mg/2 Ml Vial) 4 mg IVPUSH Q8H PRN PRN Reason: Nausea and Vomiting Last Admin: 09/01/23 04:49 Dose: 4 mg Polyethylene Glycol (Polyethylene Glycol 3350 17 Gm Powd.Pack) 17 gm PO DAILY [facility] Last Admin: 09/04/23 11:58 Dose: Not Given Sodium Biphosphate/Sodium Phosphate (Sodium Phosphate,[place]-Dibasic 133 Ml Enema) 133 ml [place] ONCE PRN PRN Reason: Once Last Admin: 09/04/23 12:14 Dose: 133 ml Sodium Chloride (0.9 % Sodium Chloride Flush 3 Ml Syringe) 3 ml IVFLUSH QSHIFT [facility] Last Admin: 09/04/23 15:55 Dose: 3 ml Vitamin D (Cholecalciferol (Vitamin D3) 25 Mcg Tablet) 25 mcg PO DAILY [facility] Last Admin: 09/04/23 11:54 Dose: 25 mcg Home Medications ?Medication ?Instructions ?Recorded ?Confirmed ?Last Taken ?Type lovastatin 20 mg tablet 20 mg PO DAILY 01/13/23 08/31/23 08/30/23 History metoprolol succinate 50 mg 50 mg PO DAILY 08/19/23 08/31/23 08/30/23 History tablet,extended release 24 hr cholecalciferol (vitamin D3) 25 25 mcg PO DAILY 08/31/23 08/31/23 08/30/23 History mcg (1,000 unit) tablet (Vitamin D3) multivitamin 1 tab PO DAILY 08/31/23 08/31/23 08/30/23 History Physical Exam Vital Signs: Last Vital Signs Temp 99.6 F 09/04/23 19:33 Pulse 112 H 09/04/23 19:33 Resp 16 09/04/23 19:33 BP 136/61 09/04/23 19:33 Pulse Ox 94 09/04/23 19:33 O2 Del Method Room Air 09/04/23 19:33 O2 Flow Rate 2 09/02/23 00:00 BMI result Body Mass Index 23.1 Const General: comfortable; No acute distress Orientation/consciousness: patient oriented x3 Eyes General: appearance normal, both eyes and all related structures Visual Gillespie: normal visual gillespie by confrontation Neck Neck: Yes supple and Yes no JVD Resp Effort & Inspection: normal respiratory effort and respiratory effort not decreased Auscultation: rhonchi Cardio Palpation: no palpable S3 and no palpable S4 Heart sounds: no rubs GI Inspection: Yes normal to inspection Palpation (GI): Soft to palpation Percussion: Yes normal to percussion Auscultation: normal bowel sounds General: Yes no CVA tenderness Back/Spine/Pelvis Back: no CVA tenderness Skin General skin exam: no petechiae and no purpura Neuro General: patient oriented x3 and no focal motor deficits Extrem General: No clubbing and No edema Results Lab Results 09/04/23 06:22 09/04/23 06:22 Lab results: Chemistry 09/02/23 09/03/23 09/04/23 07:02 06:12 06:22 Sodium 138 135 134 L Potassium 4.2 4.4 4.3 Carbon Dioxide 28 28 27 BUN 20 H 24 H 27 H Creatinine 0.81 0.84 0.85 Calcium 9.9 10.0 10.0 Hematology 09/02/23 09/04/23 07:02 06:22 WBC 7.6 4.9 Hgb 9.7 L 9.6 L Plt Count 150 L 114 L Urinalysis 09/03/23 15:40 Urine Color Dark Yellow Urine Appearance Cloudy Urine pH 8.0 Ur Specific [place] 1.020 Urine Protein 100 (2+) H Urine Glucose (UA) Negative Urine Ketones Negative Urine Blood Trace H Urine Nitrite Negative Ur Leukocyte Esterase Small (1+) H Urine RBC 3-5 H Urine WBC 6-10 H Ur Squamous Epith Cells 6-10 Hyaline Casts 3-5 Assessment and Plan (1) Tachycardia: Status: Acute Plan Concur with current work up Cardiology note appreciated Incidental CT/MRI findings - kidney stone and simple cyst No clinical evidence of UTI or Pyelo UA findings noted Obtain urine culture NO indication for antibiotics Can be followed as out patient Procedures Date of Service Date of Service: 09/04/23
[2023-09-04] MEDS: Acetaminophen 325 MG TABLET 975 MG PO (21:54)
[2023-09-05] VITALS (12 sets, daily range): BP systolic 110–150; BP diastolic 55–68; PULSE 60–125; RESP 16–20; TEMP 36.3–36.8; O2SAT 95–98
--- NOTE | 2023-09-05 | ECG_ITS ---
Test Reason : ST changes Blood Pressure : / mmHG Vent. Rate : 106 BPM Atrial Rate : 106 BPM P-R Int : 134 ms QRS Dur : 076 ms QT Int : 314 ms P-R-T Axes : 075 021 020 degrees QTc Int : 417 ms Sinus tachycardia Nonspecific ST abnormality Abnormal ECG When compared with ECG of 05-SEP-2023 08:42, No significant changes seen Referred By: Baylee Melendez Electronically Signed By:RAFAEL PASTOR
--- NOTE | 2023-09-05 | ECG_ITS ---
Test Reason : rvr Blood Pressure : / mmHG Vent. Rate : 105 BPM Atrial Rate : 105 BPM P-R Int : 126 ms QRS Dur : 074 ms QT Int : 324 ms P-R-T Axes : 076 016 013 degrees QTc Int : 428 ms Sinus tachycardia Nonspecific ST and T wave abnormality Abnormal ECG When compared with ECG of 01-SEP-2023 04:32, No significant change was found Referred By: Geovanni Naik Electronically Signed By:RAFAEL PASTOR
[2023-09-05] MEDS: Morphine Sulfate 2 MG/ML CARTRIDGE IVPUSH (05:37)
[2023-09-05 07:23] LABS: Hematocrit 26.4 % (37.0-47.0); Hemoglobin 9.2 g/dl (12.0-16.0); Mean Corpuscular HGB Conc 34.8 g/dl (31.0-35.0); Mean Corpuscular Hemoglobin 28.5 pg (27.0-33.0); Mean Corpuscular Volume 81.7 fL (80.0-98.0); Mean Platelet Volume 9.4 fL (9.4-12.3); Red Blood Count 3.23 X10*6/uL (4.20-5.50); Red Cell Distribution Width 14.6 % (11.0-16.0); White Blood Count 5.1 X10*3/uL (4.8-10.8)
[2023-09-05 07:24] LABS: Platelet Count 90 X10*3/uL (160-400)
[2023-09-05 07:27] LABS: INTERNATIONAL NORM RATIO 1.2 (0.9-1.1); Prothrombin Time 14.3 SEC (11.1-13.3)
[2023-09-05 07:42] LABS: Glucose, Whole Blood 96 mg/dL (60-115)
[2023-09-05 07:43] LABS: Alanine Aminotransferase 170 U/L (0-31); Albumin Level 2.6 g/dL (3.5-5.0); Alkaline Phosphatase 536 U/L (39-117); Anion Gap 13 (12-20); Aspartate Amino Transferase 193 U/L (5-31); Bilirubin Direct 1.3 mg/dL (0.0-0.5); Blood Urea Nitrogen 25 mg/dL (9-16); C Reactive Protein 24.14 mg/dL (< or = 0.50); Calcium 9.6 mg/dL (8.4-10.2); Carbon Dioxide 28 mmol/L (22-29); Chloride 96 mmol/L (96-108); Creatinine Clr Calc Pharmacy 61.9; Estimated Glomerular Filt Rate > 60; Glucose Random 82 mg/dL (60-115); Lactate Dehydrogenase 967 U/L (122-220); Potassium 4.3 mmol/L (3.3-5.1); Sodium 133 mmol/L (135-145); Total Protein 5.8 g/dL (6.5-8.0)
[2023-09-05 08:08] LABS: Erythrocyte Sedimentation Rate 92 MM/HR (0-20)
[2023-09-05] MEDS: Cholecalciferol (Vitamin D3) 25 MCG TABLET PO (08:28)
[2023-09-05] MEDS: 0.9 % Sodium Chloride Flush 3 ML SYRINGE IVFLUSH ×3 (08:28→20:18)
[2023-09-05] MEDS: Aspirin Enteric Coated 81 MG TABLET.DR PO (08:28)
[2023-09-05] MEDS: Metoprolol Succinate ER 50 MG TAB.ER.24H PO (08:28)
[2023-09-05] MEDS: Docusate Sodium 100 MG CAPSULE PO ×2 (08:28→20:17)
[2023-09-05] MEDS: polyethylene glycoL 3350 17 GM POWD.PACK PO (08:28)
[2023-09-05] MEDS: Multivitamin TABLET 1 TAB PO (08:28)
[2023-09-05 10:10] LABS: Band Neutrophils Percent 5 % (3-5); Lymphocytes Absolute Manual 0.5 X10*3/uL (1.2-4.9); Lymphocytes Percent Manual 10 % (20-40); Metamyelocytes Absolute 0.2 X10*3/uL; Metamyelocytes Percent 3 %; Monocytes Absolute Manual 0.4 X10*3/uL (0.1-1.2); Monocytes Percent Manual 8 % (2-11); Neutrophils Percent Manual 74 % (45-73)
[2023-09-05 10:13] LABS: Hypochromasia 1+ (5-14) /OIF; RBC Morphology NOTED
[2023-09-05 10:15] LABS: Platelet Estimate DECREASED (NORMAL); Platelet Morphology Comment NORMAL
[2023-09-05 10:27] LABS: Uric Acid 5.6 mg/dL (2.4-5.7)
[2023-09-05 10:44] LABS: Rheumatoid Factor < 13.0 IU/mL (<15.0)
[2023-09-05 11:01] LABS: Glucose, Whole Blood 126 mg/dL (60-115)
[2023-09-05 11:08] LABS: HIV AB/AG Nonreactive (Nonreactive); HIV Num 1 0.05 S/CO (0.00-0.99)
--- NOTE | 2023-09-05 11:34 | PM.PNCARD ---
Subjective Subjective Date of Service: 09/05/23 Interval history: She states she is feeling better. No clear cardiac complaints. Review of Systems Review of Systems Yes all other systems are reviewed and are negative Constitutional: Reports as per HPI and Reports no additional constitutional complaints Eyes: Reports as per HPI and Denies no additional eye complaints Denies system reviewed and no additional complaints, except as documented and Reports as per HPI Cardiovascular: Reports as per HPI, Reports no additional cardiovascular complaints, Denies acrocyanosis, Denies cool extremities, Denies chest pain, Denies leg edema, Denies lightheadedness, Denies palpitations and Denies dyspnea Respiratory: Reports as per HPI, Denies no additional respiratory complaints and Denies dyspnea Gastrointestinal: Reports as per HPI and Denies no additional gastrointestinal complaints Genitourinary: Reports as per HPI Musculoskeletal: Reports no additional musculoskeletal complaints and Reports as per HPI Skin/Breast: Reports system reviewed and no additional complaints, except as docu Reports system reviewed and no additional complaints, except as documented and Reports as per HPI Psychiatric: Reports no additional psychiatric complaints and Reports as per HPI Endocrine: Reports no additional endocrine complaints, Reports as per HPI and Denies palpitations Hematologic/Lymphatic: Reports no additional hematologic/lymphatic complaints and Reports as per HPI Allergic/Immunologic: Reports no additional allergic/immunologic complaints and Reports as per HPI Physical Exam Vital Signs: Last Vital Signs Temp 97.6 F 09/05/23 11:12 Pulse 102 H 09/05/23 11:12 Resp 16 09/05/23 11:12 BP 113/56 L 09/05/23 11:12 Pulse Ox 96 09/05/23 11:12 O2 Del Method Room Air 09/05/23 11:12 O2 Flow Rate 2 09/02/23 00:00 BMI result Body Mass Index 23.1 Const General: comfortable and no acute distress Orientation/consciousness: patient oriented x3 HEENT Other: Unremarkable Head: Yes normal to inspection Neck Neck: Yes normal visual inspection Chest Chest palpation & inspection: normal inspection of the chest Resp Auscultation: clear to auscultation bilaterally Cardio Palpation: normal PMI Heart sounds: S1 normal heart sound present, S2 normal heart sound present, no gallops, no murmurs and no rubs GI Palpation (GI): Soft to palpation Back/Spine/Pelvis Other: unremarkable Skin General skin exam: no rashes or lesions noted Neuro General: patient oriented x3 Extrem General: Yes normal to inspection Psych Mental Status: mental status grossly normal Objective Labs and Meds 09/05/23 06:38 09/05/23 06:38 Lab results: Laboratory Results - last 24 hr 09/04/23 09/04/23 09/04/23 11:54 15:42 19:56 WBC RBC Hgb Hct MCV MCH MCHC RDW Plt Count MPV Absolute Nucleated RBC Nucleated RBC % (auto) Neutrophils % (Manual) Band Neutrophils % Lymphocytes % (Manual) Monocytes % (Manual) Metamyelocytes % Abs Neuts (Manual) Lymphocytes # (Manual) Monocytes # (Manual) Metamyelocytes # Platelet Estimate Plt Morphology Comment RBC Morphology Hypochromasia ESR PT INR Sodium Potassium Chloride Carbon Dioxide Anion Gap BUN Creatinine Estim Creat Clear Calc Estimated GFR POC Glucose 80 146 H 126 H Random Glucose Uric Acid Calcium Total Bilirubin Direct Bilirubin AST ALT Alkaline Phosphatase Lactate Dehydrogenase C-Reactive Protein Total Protein Albumin Rheumatoid Factor 09/05/23 09/05/23 09/05/23 06:38 07:39 10:05 WBC 5.1 RBC 3.23 L Hgb 9.2 L Hct 26.4 L MCV 81.7 MCH 28.5 MCHC 34.8 RDW 14.6 Plt Count 90 L MPV 9.4 Absolute Nucleated RBC 0.000 Nucleated RBC % (auto) 0.0 Neutrophils % (Manual) 74 H Band Neutrophils % 5 Lymphocytes % (Manual) 10 L Monocytes % (Manual) 8 Metamyelocytes % 3 Abs Neuts (Manual) 4.0 Lymphocytes # (Manual) 0.5 L Monocytes # (Manual) 0.4 Metamyelocytes # 0.2 Platelet Estimate DECREASED Plt Morphology Comment NORMAL RBC Morphology NOTED Hypochromasia 1+ (5-14) ESR 92 H PT 14.3 H INR 1.2 H Sodium 133 L Potassium 4.3 Chloride 96 Carbon Dioxide 28 Anion Gap 13 BUN 25 H Creatinine 0.75 Estim Creat Clear Calc 61.9 Estimated GFR > 60 POC Glucose 96 Random Glucose 82 Uric Acid 5.6 Calcium 9.6 Total Bilirubin 2.0 H Direct Bilirubin 1.3 H AST 193 H ALT 170 H Alkaline Phosphatase 536 H Lactate Dehydrogenase 967 H C-Reactive Protein 24.14 H Total Protein 5.8 L Albumin 2.6 L Rheumatoid Factor < 13.0 09/05/23 10:58 WBC RBC Hgb Hct MCV MCH MCHC RDW Plt Count MPV Absolute Nucleated RBC Nucleated RBC % (auto) Neutrophils % (Manual) Band Neutrophils % Lymphocytes % (Manual) Monocytes % (Manual) Metamyelocytes % Abs Neuts (Manual) Lymphocytes # (Manual) Monocytes # (Manual) Metamyelocytes # Platelet Estimate Plt Morphology Comment RBC Morphology Hypochromasia ESR PT INR Sodium Potassium Chloride Carbon Dioxide Anion Gap BUN Creatinine Estim Creat Clear Calc Estimated GFR POC Glucose 126 H Random Glucose Uric Acid Calcium Total Bilirubin Direct Bilirubin AST ALT Alkaline Phosphatase Lactate Dehydrogenase C-Reactive Protein Total Protein Albumin Rheumatoid Factor Progress Note: A&P Assessment and plan (1) Tachycardia: Status: Acute (2) Chest pain: Status: Acute (3) Anemia: Status: Acute (4) Abnormal LFTs: Status: Acute Plan Echocardiogram with hyperdynamic LVEF and otherwise unremarkable. On the telemetry, she still has some sinus tachycardia. Short runs of what could be atrial tachycardia but can not exclude flutter. But only seconds. Otherwise, she continues to have some hematological abnormalities as well as LFT findings extra. Her inflammation markers are quite high. Unifying diagnosis is still not very clear. It seems that she may need a liver biopsy. From cardiac, no specific recommendations and the tachycardia is likely a manifestation of the underlying disease state/inflammation. Discussed with Dr. Naik. Total time spent including review of data, counseling, documentation, coordination of care-44 minutes. Time Spent With Patient Time: Total time managing care of this patient today ____ minutes. Progress Note: Quality Stroke Does the patient have a stroke diagnosis?: No Procedures Date of Service Date of Service: 09/05/23
[2023-09-05 11:44] LABS: Partial Thromboplastin Time 29.7 SEC (26.0-36.8)
[2023-09-05 11:49] LABS: Fibrinogen > 700 MG/DL (259-690)
--- NOTE | 2023-09-05 13:27 | MHC.CM.PN ---
EMR reviewed and per MD rounds, pt it not medically cleared for discharge due to worsening LFT's requiring further monitoring and management.
--- NOTE | 2023-09-05 15:59 | P.PNIM_ITS ---
Subjective Subjective Date of Service: 09/05/23 Interval History: elevated lfts , tachycardia Review of Systems denies any abd pain or fever or chills no urinary c/o po intake improving Physical Exam 2 Vital Signs: Vital Signs: Last Vital Signs Temp 97.9 F 09/05/23 15:31 Pulse 103 H 09/05/23 15:31 Resp 20 09/05/23 15:31 BP 147/67 H 09/05/23 15:31 Pulse Ox 98 09/05/23 15:31 O2 Del Method Room Air 09/05/23 15:31 O2 Flow Rate 2 09/02/23 00:00 BMI result Body Mass Index 23.1 General: AO X 3, no acute distress Resp: CTA bilateral CVS: S1,S2,RRR GI: +BS, NT, no distention Skin: No rash Neuro: motor grossly intact Psych: appropriate affect BKA who has the case worke Objective Data Active Medications Acetaminophen (Acetaminophen 325 Mg Tablet) 975 mg PO Q6H PRN PRN Reason: mild pain, headche or fever Last Admin: 09/04/23 21:54 Dose: 975 mg Documented By: JACKI Benzocaine (Throat Lozenge, Medicated Lozenge) 1 lozenge MUCOUS MEM Q2H PRN PRN Reason: Sore Throat Last Admin: 09/02/23 10:52 Dose: 1 lozenge Documented By: FRANKY Docusate Sodium (Docusate Sodium 100 Mg Capsule) 100 mg PO BID [facility] Last Admin: 09/05/23 08:28 Dose: 100 mg Documented By: ELLI Glucose (Glucose Gel 15 Gm Gel..Gram.) 15 gm PO Q15M PRN; Protocol PRN Reason: per Hypoglycemia Standing Ord. Dextrose (D10) 250 mls @ 750 mls/hr IV Q15M PRN; Protocol PRN Reason: per Hypoglycemia Standing Ord. Insulin Human Lispro (Insulin Lispro 100 Unit/Ml 3 Ml Vial) 0 unit SUBCUT QIDACHS [facility]; Protocol Last Admin: 09/05/23 13:07 Dose: Not Given Documented By: ELLI Non-Admin Reason: No Insulin Coverage Magnesium Hydroxide (Milk Of Magnesia 30 Ml Oral.Susp) 30 ml PO DAILY PRN PRN Reason: Constipation Last Admin: 09/02/23 19:01 Dose: 30 ml Documented By: FRANKY Metoprolol Succinate (Metoprolol Succinate Er 50 Mg Tab.Er.24h) 50 mg PO DAILY [facility]; Protocol Last Admin: 09/05/23 08:28 Dose: 50 mg Documented By: ELLI Morphine Sulfate (Morphine Sulfate 2 Mg/Ml Cartridge) 2 mg IVPUSH Q4H PRN; Protocol PRN Reason: Pain, Severe (Pain Scale 7-10) Last Admin: 09/05/23 05:37 Dose: 2 mg Documented By: JACKI Multivitamins/Vitamin C (Multivitamin Tablet) 1 tab PO DAILY [facility] Last Admin: 09/05/23 08:28 Dose: 1 tab Documented By: ELLI Nitroglycerin (Nitroglycerin 0.4 Mg Tab.Subl) 0.4 mg SUBLINGUAL Q5MX3 PRN PRN Reason: Chest Pain Last Admin: 09/01/23 04:43 Dose: 0.4 mg Documented By: ANITHA Ondansetron HCl (Ondansetron Hcl 4 Mg/2 Ml Vial) 4 mg IVPUSH Q8H PRN PRN Reason: Nausea and Vomiting Last Admin: 09/01/23 04:49 Dose: 4 mg Documented By: ANITHA Polyethylene Glycol (Polyethylene Glycol 3350 17 Gm Powd.Pack) 17 gm PO DAILY [facility] Last Admin: 09/05/23 08:28 Dose: 17 gm Documented By: ELLI Sodium Biphosphate/Sodium Phosphate (Sodium Phosphate,[place]-Dibasic 133 Ml Enema) 133 ml [place] ONCE PRN PRN Reason: Once Last Admin: 09/04/23 12:14 Dose: 133 ml Documented By: IQRA Sodium Chloride (0.9 % Sodium Chloride Flush 3 Ml Syringe) 3 ml IVFLUSH QSHIFT [facility] Last Admin: 09/05/23 08:28 Dose: 3 ml Documented By: ELLI Vitamin D (Cholecalciferol (Vitamin D3) 25 Mcg Tablet) 25 mcg PO DAILY [facility] Last Admin: 09/05/23 08:28 Dose: 25 mcg Documented By: ELLI Labs 09/05/23 06:38 09/05/23 06:38 Labs: Laboratory Results - last 24 hr 09/04/23 09/05/23 09/05/23 19:56 06:38 07:39 MCV 81.7 MCH 28.5 MCHC 34.8 RDW 14.6 Plt Count 90 L MPV 9.4 Absolute Nucleated RBC 0.000 Nucleated RBC % (auto) 0.0 Neutrophils % (Manual) 74 H Band Neutrophils % 5 Lymphocytes % (Manual) 10 L Monocytes % (Manual) 8 Metamyelocytes % 3 Abs Neuts (Manual) 4.0 Lymphocytes # (Manual) 0.5 L Monocytes # (Manual) 0.4 Metamyelocytes # 0.2 Platelet Estimate DECREASED Plt Morphology Comment NORMAL RBC Morphology NOTED Hypochromasia 1+ (5-14) Smear Path Review ESR 92 H PT 14.3 H INR 1.2 H APTT Fibrinogen Anion Gap 13 Estim Creat Clear Calc 61.9 Estimated GFR > 60 POC Glucose 126 H 96 Random Glucose 82 Uric Acid Calcium 9.6 Total Bilirubin 2.0 H Direct Bilirubin 1.3 H AST 193 H ALT 170 H Alkaline Phosphatase 536 H Lactate Dehydrogenase 967 H C-Reactive Protein 24.14 H Total Protein 5.8 L Albumin 2.6 L Rheumatoid Factor HIV 1&2 Ab/P24 Ag 4thGn 09/05/23 09/05/23 09/05/23 10:05 10:53 10:58 MCV MCH MCHC RDW Plt Count MPV Absolute Nucleated RBC Nucleated RBC % (auto) Neutrophils % (Manual) Band Neutrophils % Lymphocytes % (Manual) Monocytes % (Manual) Metamyelocytes % Abs Neuts (Manual) Lymphocytes # (Manual) Monocytes # (Manual) Metamyelocytes # Platelet Estimate Plt Morphology Comment RBC Morphology Hypochromasia Smear Path Review ESR PT INR APTT 29.7 Fibrinogen > 700 H Anion Gap Estim Creat Clear Calc Estimated GFR POC Glucose 126 H Random Glucose Uric Acid 5.6 Calcium Total Bilirubin Direct Bilirubin AST ALT Alkaline Phosphatase Lactate Dehydrogenase C-Reactive Protein Total Protein Albumin Rheumatoid Factor < 13.0 HIV 1&2 Ab/P24 Ag 4thGn Nonreactive Microbiology Microbiology Results: Microbiology 09/03/23 13:20 Blood Culture - Preliminary Blood - Venous No growth after 48 hours. 09/03/23 13:20 Blood Culture - Preliminary Blood - Venous No growth after 48 hours. Assessment and Plan (1) Abnormal LFTs: Status: Acute Plan 73 year old female with history of type 2 diabetes, hld, hx breast cancer 1990s to be observed for chest pain Chest pain- seems atypical, troponin i mildly high but flat -initial trop 17-->24-->20. EKG without actue ischemic changes, negative PE bt CTA -cardiology input noted, echo, continue ASA, statin for now Tachycardia--imrpoving,likely relaed to anxiety, TSH is normal. Near syncope: unclear etiology echo:The left ventricular systolic function is normal. The calculated ejection fraction is 70% by biplane method. - No obvious valvular pathology seen on this study. tele -tachy -?anxiety -head ct negative for acute intracranial abn -plan as above,added ativan prn. 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 also shows b/l renal parenchymal chnages vs pyelo: patient denies urinary c/o ua : has some pyuria/hematuria microscopic /bacteruria,send urine cultures ,patient asymptomatic ,Mri-less likely renal infection, defer antibiotics until urine culture report. added nephro eval. hold statin due to elevated lft's ct abd/pevis ,mri- neg for liver /pancreatic dis, hepatitic screen neg crp,esr seems somewhat improving ,lft's trending up -seen by Gi-liver studies added for ?Pbc: Immunoglobulin subclasses,adali titer,anti-mitochondrial ,anti smooth muscle ab. Gi evaluation noted -need Gi follow up. Chronic tension headaches-head ct negative for acute intracranial abn -trial imitrex -outpt follow up dm type 2 diabetes with hyperglycemia: fs 100-125 -hgb a1c 6.9% -poc glucose, diabetic diet -admelog ss, hold metformin HLD-statin hold due to elevated lft's. dvt prophylaxis- lovenox full code. Ongoing hospitalization need: Decreased p.o. intake, nausea, elevated LFT need further workup ,Gi eval -may need liver biopsy if does not improve. Quality Stroke Does the patient have a stroke diagnosis?: No VTE Prior VTE?: No VTE Risk Level:: Medical - moderate - high VTE Device Contraindication: Treatment Not Indicated VTE Drug Contraindication: N/A - Med Ordered
[2023-09-05] MEDS: Acetaminophen 325 MG TABLET 975 MG PO ×2 (16:00→23:43)
[2023-09-05 16:34] LABS: Glucose, Whole Blood 127 mg/dL (60-115)
[2023-09-05 21:17] LABS: Glucose, Whole Blood 172 mg/dL (60-115)
[2023-09-05] MEDS: Insulin Lispro 100 UNIT/ML 3 ML VIAL SUBCUT (21:30)
[2023-09-06] VITALS (8 sets, daily range): BP systolic 106–148; BP diastolic 52–83; PULSE 93–132; RESP 16–20; TEMP 36.1–37.1; O2SAT 95–97
[2023-09-06 07:50] LABS: Glucose, Whole Blood 89 mg/dL (60-115)
[2023-09-06] MEDS: Multivitamin TABLET 1 TAB PO (08:31)
[2023-09-06] MEDS: Acetaminophen 325 MG TABLET 975 MG PO (08:31)
[2023-09-06] MEDS: Cholecalciferol (Vitamin D3) 25 MCG TABLET PO (08:31)
[2023-09-06] MEDS: Metoprolol Succinate ER 50 MG TAB.ER.24H PO (08:31)
[2023-09-06] MEDS: 0.9 % Sodium Chloride Flush 3 ML SYRINGE IVFLUSH ×2 (08:32→14:58)
[2023-09-06 09:30] LABS: Hematocrit 26.1 % (37.0-47.0); Hemoglobin 9.2 g/dl (12.0-16.0)
[2023-09-06 09:48] LABS: Alanine Aminotransferase 223 U/L (0-31); Albumin Level 2.8 g/dL (3.5-5.0); Alkaline Phosphatase 768 U/L (39-117); Aspartate Amino Transferase 198 U/L (5-31); Bilirubin Direct 1.3 mg/dL (0.0-0.5); Bilirubin Total 2.1 mg/dL (0.0-1.0); Total Protein 6.2 g/dL (6.5-8.0)
[2023-09-06] MEDS: Lactated Ringers 1,000 ML 100 ML IVCONT (10:10)
[2023-09-06 10:12] LABS: Platelet Count 93 X10*3/uL (160-400)
[2023-09-06 11:11] LABS: Glucose, Whole Blood 166 mg/dL (60-115)
[2023-09-06] MEDS: polyethylene glycoL 3350 17 GM POWD.PACK PO (11:45)
[2023-09-06] MEDS: Docusate Sodium 100 MG CAPSULE PO ×2 (11:46→20:33)
[2023-09-06] MEDS: Insulin Lispro 100 UNIT/ML 3 ML VIAL SUBCUT ×2 (13:17→16:42)
--- NOTE | 2023-09-06 13:18 | HO.PM.IMPN ---
Subjective Subjective Date of Service: 09/06/23 Interval History: elevated lfts anxious Review of Systems denies new c/o no abd pain or urinary c/o Physical Exam Vital Signs: Vital Signs: Last Vital Signs Temp 98.7 F 09/06/23 11:13 Pulse 97 09/06/23 11:13 Resp 20 09/06/23 11:13 BP 137/63 09/06/23 11:13 Pulse Ox 95 09/06/23 11:13 O2 Del Method Room Air 09/06/23 11:13 O2 Flow Rate 2.5 09/05/23 16:46 BMI result Body Mass Index 23.1 General: AO X 3, no acute distress Resp: CTA bilateral CVS: S1,S2,RRR GI: +BS, NT, no distention Skin: No rash Neuro: motor grossly intact Psych: appropriate affect BKA who has the case worke Objective Data Active Medications Benzocaine (Throat Lozenge, Medicated Lozenge) 1 lozenge MUCOUS MEM Q2H PRN PRN Reason: Sore Throat Last Admin: 09/02/23 10:52 Dose: 1 lozenge Documented By: FRANKY Docusate Sodium (Docusate Sodium 100 Mg Capsule) 100 mg PO BID [facility], [facility] Last Admin: 09/06/23 11:46 Dose: 100 mg Documented By: ELLI Glucose (Glucose Gel 15 Gm Gel..Gram.) 15 gm PO Q15M PRN; Protocol PRN Reason: per Hypoglycemia Standing Ord. Dextrose (D10) 250 mls @ 750 mls/hr IV Q15M PRN; Protocol PRN Reason: per Hypoglycemia Standing Ord. Lactated Ringer's (Lr) 1,000 mls @ 100 mls/hr IVCONT .Q10H [facility], [facility] Last Admin: 09/06/23 10:10 Dose: 100 mls/hr Documented By: ELLI Insulin Human Lispro (Insulin Lispro 100 Unit/Ml 3 Ml Vial) 0 unit SUBCUT QIDACHS [facility], [facility]1983; Protocol Last Admin: 09/06/23 13:17 Dose: 2 unit Documented By: ELLI Lidocaine (Lidocaine 4 % Patch Adh..Patch) 1 patch TRANSDERMA DAILY [facility], [facility]; Protocol Lorazepam (Lorazepam 1 Mg Tablet) 1 mg PO Q4H PRN PRN Reason: anxiety/restlessness Magnesium Hydroxide (Milk Of Magnesia 30 Ml Oral.Susp) 30 ml PO DAILY PRN PRN Reason: Constipation Last Admin: 09/02/23 19:01 Dose: 30 ml Documented By: FRANKY Metoprolol Succinate (Metoprolol Succinate Er 50 Mg Tab.Er.24h) 50 mg PO DAILY [facility], [facility]; Protocol Last Admin: 09/06/23 08:31 Dose: 50 mg Documented By: ELLI Multivitamins/Vitamin C (Multivitamin Tablet) 1 tab PO DAILY [facility] Last Admin: 09/06/23 08:31 Dose: 1 tab Documented By: ELLI Nitroglycerin (Nitroglycerin 0.4 Mg Tab.Subl) 0.4 mg SUBLINGUAL Q5MX3 PRN PRN Reason: Chest Pain Last Admin: 09/01/23 04:43 Dose: 0.4 mg Documented By: ANITHA Ondansetron HCl (Ondansetron Hcl 4 Mg/2 Ml Vial) 4 mg IVPUSH Q8H PRN PRN Reason: Nausea and Vomiting Last Admin: 09/01/23 04:49 Dose: 4 mg Documented By: ANITHA Polyethylene Glycol (Polyethylene Glycol 3350 17 Gm Powd.Pack) 17 gm PO DAILY [facility] Last Admin: 09/06/23 11:45 Dose: 17 gm Documented By: ELLI Sodium Biphosphate/Sodium Phosphate (Sodium Phosphate,Pitt-Dibasic 133 Ml Enema) 133 ml [place] ONCE PRN PRN Reason: Once Last Admin: 09/04/23 12:14 Dose: 133 ml Documented By: IQRA Sodium Chloride (0.9 % Sodium Chloride Flush 3 Ml Syringe) 3 ml IVFLUSH QSHIFT [facility], [facility] Last Admin: 09/06/23 08:32 Dose: 3 ml Documented By: ELLI Vitamin D (Cholecalciferol (Vitamin D3) 25 Mcg Tablet) 25 mcg PO DAILY [facility] Last Admin: 09/06/23 08:31 Dose: 25 mcg Documented By: ELLI Labs 09/06/23 09:00 09/05/23 06:38 Labs: Laboratory Results - last 24 hr 09/05/23 09/05/23 09/05/23 06:38 16:31 21:05 Plt Count Smear Path Review POC Glucose 127 H 172 H Total Bilirubin Direct Bilirubin AST ALT Alkaline Phosphatase Total Protein Albumin 09/06/23 09/06/23 09/06/23 07:24 09:00 11:07 Plt Count 93 L Smear Path Review POC Glucose 89 166 H Total Bilirubin 2.1 H Direct Bilirubin 1.3 H AST 198 H ALT 223 H Alkaline Phosphatase 768 H Total Protein 6.2 L Albumin 2.8 L Microbiology Microbiology Results: Microbiology 09/03/23 13:20 Blood Culture - Preliminary Blood - Venous No growth after 48 hours. 09/03/23 13:20 Blood Culture - Preliminary Blood - Venous No growth after 48 hours. Assessment and Plan (1) Abnormal LFTs: Status: Acute (2) Anemia: Status: Acute (3) Thrombocytopenia: Status: Acute Assessment and Plan: 73 year old female with history of type 2 diabetes, hld, hx breast cancer 1990s to be observed for chest pain Chest pain- seems atypical, troponin i mildly high but flat -initial trop 17-->24-->20. EKG without actue ischemic changes, negative PE bt CTA -cardiology input noted, echo as below, continue ASA, statin for now Tachycardia--imrpoving,likely relaed to anxiety, TSH is normal. Near syncope: unclear etiology echo:The left ventricular systolic function is normal. The calculated ejection fraction is 70% by biplane method. - No obvious valvular pathology seen on this study. tele -tachy -?anxiety -head ct negative for acute intracranial abn -plan as above,added ativan prn. Anemia--cbc reviewed by Hematology- no abnormal cells to suggest acute hematological process such as leukemia Elevated LFTs trending up, LDH somewhat improving: ct abd /pelvis with contrast-liver/pancreas seems fine ct abd -lung changes seems moslty similar to previous cta-possible atelactasis ,fibrosis changes from previous radiation treatment . ct abd/pevis ,mri- neg for liver /pancreatic dis, hepatitic, hiv screen neg crp,esr seems somewhat improving ,lft's trending up -seen by Gi-liver studies added for ?Pbc: Immunoglobulin subclasses,adali titer,RF,anti-mitochondrial ,anti smooth muscle ab, proteinase ,myeloperoxidase,complement ,haptoglobumin,peripheral smear negative for schistocytes. plan: hold statin due to elevated lft's Gi evaluation noted -may need liver biopsY on friday pyuria/hematuria microscopic /bacteruria: also shows b/l renal parenchymal changes vs pyelo: patient denies urinary c/o, ua : has some pyuria/hematuria microscopic /bacteruria,send urine cultures ,patient asymptomatic ,Mri-less likely renal infection, defer antibiotics until urine culture report. nephrology followin Chronic tension headaches-head ct negative for acute intracranial abn may need prn fioricet -outpt follow up dm type 2 diabetes with hyperglycemia: fs 100-160 -hgb a1c 6.9% -poc glucose, diabetic diet -admelog ss, hold metformin HLD-statin hold due to elevated lft's. dvt prophylaxis- off lovenox ,scd. full code. Ongoing hospitalization need: Decreased p.o. intake, nausea, elevated LFT need further workup ,Gi eval -may need liver biopsy if does not improve. Quality Stroke Does the patient have a stroke diagnosis?: No VTE Prior VTE?: No VTE Risk Level:: Medical - moderate - high VTE Device Contraindication: Treatment Not Indicated VTE Drug Contraindication: N/A - Med Ordered
[2023-09-06] MEDS: Lidocaine 4 % Patch ADH..PATCH 1 PATCH TRANSDERMA (14:56)
[2023-09-06 16:33] LABS: Glucose, Whole Blood 167 mg/dL (60-115)
[2023-09-06] MEDS: Butalb/Acetamin/Caff 50/325/40 TABLET 1 TAB PO (16:41)
--- NOTE | 2023-09-06 17:17 | PM.EVENT ---
Event Note Date of Service: 09/06/23 Event Note: GI Follow up-Course noted with continued rising of LFT's with negative w/u on all imaging studies, with specifically no sign of liver disease or biliary disease. The autoimmune studies are pending re: AMA, LORNA, and ASMA. I would recommend an U/S-guided liver biopsy on 09/07 as I think this would be important to do sooner than later, as opposed to arranging as an outpatient. I have ordered labs and the biopsy for 09/07, as well as keeping her NPO for the biopsy. Her diabetes regimen will need to be adjusted, however. D/W Dr. Naik. Thanks Time Spent With Patient Time: Total time managing care of this patient today ____ minutes.
[2023-09-06] MEDS: Acetaminophen 325 MG TABLET 650 MG PO (20:33)
[2023-09-06 21:10] LABS: Glucose, Whole Blood 137 mg/dL (60-115)
[2023-09-07] VITALS (12 sets, daily range): BP systolic 127–163; BP diastolic 50–75; PULSE 78–120; RESP 16–18; TEMP 35.8–37.9; O2SAT 96–98
[2023-09-07] MEDS: LORazepam 1 MG TABLET PO ×2 (00:21→21:25)
[2023-09-07] MEDS: Lactated Ringers 1,000 ML 100 ML IVCONT ×2 (00:23→16:53)
[2023-09-07] MEDS: Acetaminophen 325 MG TABLET 650 MG PO ×2 (00:34→12:18)
[2023-09-07 06:16] LABS: Hematocrit 23.8 % (37.0-47.0); Hemoglobin 8.1 g/dl (12.0-16.0)
[2023-09-07 06:31] LABS: Alanine Aminotransferase 165 U/L (0-31); Albumin Level 2.5 g/dL (3.5-5.0); Alkaline Phosphatase 871 U/L (39-117); Aspartate Amino Transferase 127 U/L (5-31); Bilirubin Direct 1.5 mg/dL (0.0-0.5); Bilirubin Total 2.4 mg/dL (0.0-1.0); Total Protein 5.5 g/dL (6.5-8.0)
[2023-09-07 07:54] LABS: Platelet Count 79 X10*3/uL (160-400)
[2023-09-07 08:04] LABS: C Reactive Protein 18.25 mg/dL (< or = 0.50)
[2023-09-07 08:40] LABS: Glucose, Whole Blood 111 mg/dL (60-115)
[2023-09-07] MEDS: polyethylene glycoL 3350 17 GM POWD.PACK PO (08:49)
[2023-09-07] MEDS: Docusate Sodium 100 MG CAPSULE PO ×2 (08:49→19:56)
[2023-09-07] MEDS: Albumin Human 25 % 100 ML IV ×3 (08:49→20:43)
[2023-09-07] MEDS: Cholecalciferol (Vitamin D3) 25 MCG TABLET PO (08:49)
[2023-09-07] MEDS: Lidocaine 4 % Patch ADH..PATCH 1 PATCH TRANSDERMA (08:49)
[2023-09-07] MEDS: 0.9 % Sodium Chloride Flush 3 ML SYRINGE IVFLUSH (08:49)
[2023-09-07] MEDS: Multivitamin TABLET 1 TAB PO (08:49)
[2023-09-07] MEDS: Metoprolol Succinate ER 50 MG TAB.ER.24H PO (08:49)
[2023-09-07 08:50] LABS: Erythrocyte Sedimentation Rate 99 MM/HR (0-20)
--- NOTE | 2023-09-07 12:09 | P.PNIM_ITS ---
Subjective Subjective Date of Service: 09/07/23 Interval History: anemia/thrombocytopenia,elevated lft's orthostasis Review of Systems seems slightly improving today-denies any chest pain or sob or lightheadness , off ivf no fevers or rash Physical Exam 2 Vital Signs: Vital Signs: Last Vital Signs Temp 96.4 F L 09/07/23 08:00 Pulse 115 H 09/07/23 08:49 Resp 18 09/07/23 08:00 BP 127/59 L 09/07/23 08:49 Pulse Ox 97 09/07/23 08:00 O2 Del Method Room Air 09/07/23 08:00 BMI result Body Mass Index 23.1 General: AO X 3, no acute distress Resp: CTA bilateral CVS: S1,S2,RRR GI: +BS, NT, no distention Skin: No rash Neuro: motor grossly intact Psych: appropriate affect BKA who has the case worke Objective Data Active Medications Acetaminophen (Acetaminophen 325 Mg Tablet) 650 mg PO Q4H PRN PRN Reason: Pain, Mild (Pain Scale 1-3) Last Admin: 09/07/23 00:34 Dose: 650 mg Documented By: JACKI Benzocaine (Throat Lozenge, Medicated Lozenge) 1 lozenge MUCOUS MEM Q2H PRN PRN Reason: Sore Throat Last Admin: 09/02/23 10:52 Dose: 1 lozenge Documented By: FRANKY Docusate Sodium (Docusate Sodium 100 Mg Capsule) 100 mg PO BID [facility] Last Admin: 09/07/23 08:49 Dose: 100 mg Documented By: CARLO Glucose (Glucose Gel 15 Gm Gel..Gram.) 15 gm PO Q15M PRN; Protocol PRN Reason: per Hypoglycemia Standing Ord. Dextrose (D10) 250 mls @ 750 mls/hr IV Q15M PRN; Protocol PRN Reason: per Hypoglycemia Standing Ord. Lactated Ringer's (Lr) 1,000 mls @ 100 mls/hr IVCONT .Q10H [facility] Last Infusion: 09/07/23 12:00 Dose: Infused Documented By: ELLI Albumin Human (Kedbumin 25 %) 100 mls @ 100 mls/hr IV Q6H [facility] Stop: 09/08/23 02:44 Last Infusion: 09/07/23 12:00 Dose: Infused Documented By: ELLI Insulin Human Lispro (Insulin Lispro 100 Unit/Ml 3 Ml Vial) 0 unit SUBCUT QIDACHS [facility]; Protocol Last Admin: 09/07/23 08:41 Dose: Not Given Documented By: CARLO Non-Admin Reason: No Insulin Coverage Lidocaine (Lidocaine 4 % Patch Adh..Patch) 1 patch TRANSDERMA DAILY [facility]; Protocol Last Admin: 09/07/23 08:49 Dose: 1 patch Documented By: CARLO Lorazepam (Lorazepam 1 Mg Tablet) 1 mg PO Q4H PRN PRN Reason: anxiety/restlessness Last Admin: 09/07/23 00:21 Dose: 1 mg Documented By: JACKI Magnesium Hydroxide (Milk Of Magnesia 30 Ml Oral.Susp) 30 ml PO DAILY PRN PRN Reason: Constipation Last Admin: 09/02/23 19:01 Dose: 30 ml Documented By: FRANKY Metoprolol Succinate (Metoprolol Succinate Er 50 Mg Tab.Er.24h) 50 mg PO DAILY [facility]; Protocol Last Admin: 09/07/23 08:49 Dose: 50 mg Documented By: CARLO Multivitamins/Vitamin C (Multivitamin Tablet) 1 tab PO DAILY [facility] Last Admin: 09/07/23 08:49 Dose: 1 tab Documented By: CARLO Nitroglycerin (Nitroglycerin 0.4 Mg Tab.Subl) 0.4 mg SUBLINGUAL Q5MX3 PRN PRN Reason: Chest Pain Last Admin: 09/01/23 04:43 Dose: 0.4 mg Documented By: ANITHA Ondansetron HCl (Ondansetron Hcl 4 Mg/2 Ml Vial) 4 mg IVPUSH Q8H PRN PRN Reason: Nausea and Vomiting Last Admin: 09/01/23 04:49 Dose: 4 mg Documented By: ANITHA Polyethylene Glycol (Polyethylene Glycol 3350 17 Gm Powd.Pack) 17 gm PO DAILY [facility] Last Admin: 09/07/23 08:49 Dose: 17 gm Documented By: CARLO Sodium Biphosphate/Sodium Phosphate (Sodium Phosphate,Elbert-Dibasic 133 Ml Enema) 133 ml [place] ONCE PRN PRN Reason: Once Last Admin: 09/04/23 12:14 Dose: 133 ml Documented By: IQRA Sodium Chloride (0.9 % Sodium Chloride Flush 3 Ml Syringe) 3 ml IVFLUSH QSHIFT [facility] Last Admin: 09/07/23 08:49 Dose: 3 ml Documented By: CARLO Vitamin D (Cholecalciferol (Vitamin D3) 25 Mcg Tablet) 25 mcg PO DAILY [facility] Last Admin: 09/07/23 08:49 Dose: 25 mcg Documented By: CARLO Labs 09/07/23 05:40 09/05/23 06:38 Labs: Laboratory Results - last 24 hr 09/06/23 09/06/23 09/07/23 16:20 21:02 05:40 Plt Count 79 L ESR 99 H POC Glucose 167 H 137 H Total Bilirubin Direct Bilirubin AST ALT Alkaline Phosphatase Total Creatine Kinase C-Reactive Protein Total Protein Albumin 09/07/23 09/07/23 05:41 08:25 Plt Count ESR POC Glucose 111 Total Bilirubin 2.4 H Direct Bilirubin 1.5 H AST 127 H ALT 165 H Alkaline Phosphatase 871 H Total Creatine Kinase 14 L C-Reactive Protein 18.25 H Total Protein 5.5 L Albumin 2.5 L Microbiology Microbiology Results: Microbiology 09/05/23 01:40 Urine Culture - Final Urine clean catch Corynebacterium species Assessment and Plan (1) Thrombocytopenia: Status: Acute (2) Abnormal LFTs: Status: Acute (3) Anemia: Status: Acute Assessment and Plan: 73 year old female with history of type 2 diabetes, hld, hx breast cancer 1990s to be observed for chest pain Chest pain- seems atypical, troponin i mildly high but flat -initial trop 17-->24-->20. EKG without actue ischemic changes, negative PE bt CTA -cardiology input noted, echo as below, continue ASA, statin for now Tachycardia--imrpoving,likely relaed to anxiety, TSH is normal. Near syncope: unclear etiology possible orthostatic ,anxiety echo:The left ventricular systolic function is normal. The calculated ejection fraction is 70% by biplane method. - No obvious valvular pathology seen on this study. tele -tachy -head ct negative for acute intracranial abn -plan as above,added ativan prn.tien stockings ,moniter orthostasis. Anemia/thrombocytopenia (unclear etiology)--cbc reviewed by Hematology- no abnormal cells to suggest acute hematological process such as leukemia. iron studies -iron low ,iron sats ,tibc-normal ,ferritin elevated , b12 and folate normal patient denies any gross bleeding or melena,peripheral smear negative for s chistocytes. haptoglobin pending ldh elevated fobt negative h/h tredning down 8.1/23.8 above transfusion threshold,platlets also tredning down to 79. added 1 prbc will check coags in am need hematology followup. please see further workup in Lft's section below: Elevated LFTs trending up, LDH somewhat improving: ct abd /pelvis with contrast-liver/pancreas seems fine ct abd -lung changes seems moslty similar to previous cta-possible atelactasis ,fibrosis changes from previous radiation treatment . ct abd/pevis ,mri- neg for liver /pancreatic dis, hepatitic, hiv screen neg d/w rheumatology-Ccp antibody,Angiotensin converting enzyme,Sjogren antibodies,Dsdna,immunofixation,Beta 2 glycoprotein antibodies,Lupus anticoagulant,HLA b27,HLA B51 crp,esr seems somewhat improving ,lft's trending up -seen by Gi-liver studies added for ?Pbc: Immunoglobulin subclasses,adali titer,RF,anti-mitochondrial ,anti smooth muscle ab, proteinase ,myeloperoxidase,complement ,haptoglobin,peripheral smear negative for schistocytes. plan: hold statin due to elevated lft's Gi evaluation noted -may need liver biopsy on friday pyuria/hematuria microscopic /bacteruria: also shows b/l renal parenchymal changes vs pyelo: patient denies urinary c/o, ua : has some pyuria/hematuria microscopic /bacteruria, send urine cultures -Corynebacterium species([id number] contaminant). blood culture neg@48hrs patient asymptomatic ,Mri-less likely renal infection, defer antibiotics until urine culture report. nephrology followin Chronic tension headaches-head ct negative for acute intracranial abn may need prn fioricet -outpt follow up dm type 2 diabetes with hyperglycemia: fs 100-160 -hgb a1c 6.9% -poc glucose, diabetic diet -admelog ss, hold metformin HLD-statin hold due to elevated lft's. dvt prophylaxis- off lovenox due to anemia /thrombocytopenia ,scd. full code. Ongoing hospitalization need: Decreased p.o. intake, nausea, elevated LFT need further workup ,Gi eval -npo past midnight,possible liver biopsy in am. Quality Stroke Does the patient have a stroke diagnosis?: No VTE Prior VTE?: No VTE Risk Level:: Medical - moderate - high VTE Device Contraindication: Treatment Not Indicated VTE Drug Contraindication: N/A - Med Ordered
[2023-09-07 12:37] LABS: Lactate Dehydrogenase 893 U/L (122-220)
[2023-09-07 12:50] LABS: Glucose, Whole Blood 123 mg/dL (60-115)
[2023-09-07 12:50] LABS: Glucose, Whole Blood 115 mg/dL (60-115)
[2023-09-07] MEDS: Butalb/Acetamin/Caff 50/325/40 TABLET 1 TAB PO (15:09)
[2023-09-07 17:51] LABS: Glucose, Whole Blood 126 mg/dL (60-115)
--- NOTE | 2023-09-07 18:52 | PC.NURSE ---
per md ayala administer blood at a slower rate than normal.
[2023-09-07] MEDS: traMADoL HCL 50 MG TABLET PO (19:56)
[2023-09-07 20:27] LABS: Glucose, Whole Blood 124 mg/dL (60-115)
--- NOTE | 2023-09-07 23:57 | PM.EVENT ---
Event Note Date of Service: 09/07/23 Event Note: Nurse reported fever of 101.3. Will order IV fluids, obtain lactic acid and blood cultures. Empiric IV antibiotics. Obtaining chest x-ray and repeat UA Time Spent With Patient Time: Total time managing care of this patient today ____ minutes.
[2023-09-08] VITALS (21 sets, daily range): BP systolic 125–161; BP diastolic 59–79; PULSE 107–126; RESP 18–28; TEMP 36.6–38.9; O2SAT 90–97
[2023-09-08] MEDS: LORazepam 1 MG TABLET PO ×2 (00:26→09:19)
[2023-09-08] MEDS: cefTRIAXone sodium 1 GM in 0.9 % Sodium Chloride 50 ML IV ×2 (00:26→22:31)
[2023-09-08] MEDS: Albumin Human 25 % 100 ML 133.33 ML IV ×2 (00:42→01:42)
[2023-09-08 00:58] LABS: Glucose, Whole Blood 106 mg/dL (60-115)
[2023-09-08 01:00] LABS: VBG Base Excess 6.5 mmol/L; VBG HCO3 26 mmol/L (22-26); VBG pCO2 24 mmHg; VBG pH 7.64 (7.32-7.43); VBG pO2 121 mmHg
[2023-09-08 01:00] LABS: Venous Blood Gas Refer to POC result
[2023-09-08 01:07] LABS: Lactic Acid 1.9 mmol/L (0.5-2.0)
[2023-09-08 01:18] LABS: B Type Natriuretic Peptide 121 pg/mL (<100)
[2023-09-08] MEDS: Acetaminophen 325 MG TABLET 650 MG PO ×3 (01:19→22:31)
[2023-09-08] MEDS: Albumin Human 25 % 100 ML IV (03:01)
--- NOTE | 2023-09-08 04:31 | PC.NURSE ---
around 0000, oral temp found to be 101.3 and SpO2 88% on RA. fine crackles auscultated to bilat lung bases. placed on 2L NC with improvement to 97% SpO2. pt remains A+Ox4, anxious, weak, dizzy when standing too rapidly. strength equal bilaterally. face symmetrical. no signs of dysphagia observed when patient taking sips of water. vitals besides temp at baseline. POC glucose 106. perrla. MD notified. continous fluids dc'd. CXR, labs obtained. rocephin x1 infused. medicated with tylenol for fever. around 0100, vbg returned with pH 7.64. MD responded to lab tiger text stating critical value. 2 additional bags of albumin infused. reassessment of oral temp 100.0 orally after treating with acetaminophen prn. pt states dizziness resolved. MD aware. no further interventions at this time. call kulkarni in reach. plan of care continues.
[2023-09-08 07:23] LABS: Glucose, Whole Blood 84 mg/dL (60-115)
[2023-09-08 07:35] LABS: Hematocrit 21.9 % (37.0-47.0); Hemoglobin 7.7 g/dl (12.0-16.0); Mean Corpuscular HGB Conc 35.2 g/dl (31.0-35.0); Mean Corpuscular Hemoglobin 28.7 pg (27.0-33.0); Mean Corpuscular Volume 81.7 fL (80.0-98.0); NRBC Pct Auto 0.5 /100WBC (0.0-0.2); PLT CLUMP 1; Red Blood Count 2.68 X10*6/uL (4.20-5.50); Red Cell Distribution Width 14.7 % (11.0-16.0)
[2023-09-08 07:38] LABS: INTERNATIONAL NORM RATIO 1.2 (0.9-1.1); Prothrombin Time 14.6 SEC (11.1-13.3); White Blood Count 4.4 X10*3/uL (4.8-10.8)
[2023-09-08 07:41] LABS: Partial Thromboplastin Time 24.9 SEC (26.0-36.8)
[2023-09-08 07:52] LABS: Appearance Urine Cloudy; Color Urine Dark Yellow; Glucose Urine UA Negative (Negative); Leukocyte Esterase Urine Trace (Negative); Nitrite Urine Negative (Negative); PH 6.5 (5.0-9.0); Specific Gravity - Urine 1.015 (1.005-1.025); UMIC TRIGGER UACC YES; Urine Blood Small (1+) (Negative); Urine Ketones Trace mg/dL (Negative); Urine Protein 30 (1+) mg/dL (Neg-Trace)
[2023-09-08 07:54] LABS: Bacteria Urine 4+ (None Seen); Hyaline Casts Urine 0-2 /LPF (0-2); Squamous Epithelial Cell Urine 0-2 /HPF (0-2); WBC Urine 0-5 /HPF (0-5)
[2023-09-08 07:57] LABS: Alanine Aminotransferase 91 U/L (0-31); Albumin Level 4.1 g/dL (3.5-5.0); Alkaline Phosphatase 514 U/L (39-117); Aspartate Amino Transferase 79 U/L (5-31); Bilirubin Direct 2.3 mg/dL (0.0-0.5); C Reactive Protein 21.33 mg/dL (< or = 0.50); Gamma Glutamyl Transpeptidase 213 U/L (7-33); Lactate Dehydrogenase 856 U/L (122-220); Total Protein 6.6 g/dL (6.5-8.0)
[2023-09-08 08:02] LABS: Atypical Lymph Absolute Manual 0.1 x10*3/uL; Atypical Lymphs Percent Manual 2 % (0-6); Band Neutrophils Percent 11 % (3-5); Lymphocytes Absolute Manual 0.7 X10*3/uL (1.2-4.9); Lymphocytes Percent Manual 17 % (20-40); Metamyelocytes Absolute 0.2 X10*3/uL; Metamyelocytes Percent 5 %; Monocytes Absolute Manual 0.1 X10*3/uL (0.1-1.2); Monocytes Percent Manual 2 % (2-11); Myelocytes Absolute 0.1 X10*/uL; Myelocytes Percent 2 %; Neutrophils Absolute Manual 3.2 X10*3/uL (2.0-8.3); Neutrophils Percent Manual 61 % (45-73); Nucleated Red Blood Cells 1 /100WBC (0-0)
[2023-09-08 08:05] LABS: Creatinine Urine 67.55 mg/dL; Total Protein Urine Random 47 mg/dL (<12)
[2023-09-08 08:05] LABS: Microcytosis 1+ (5-14) /OIF; Platelet Estimate DECREASED (NORMAL); Platelet Morphology Comment NORMAL; RBC Morphology NOTED
[2023-09-08 08:07] LABS: Platelet Count 67 X10*3/uL (160-400)
[2023-09-08 08:13] LABS: Bilirubin Total 3.9 mg/dL (0.0-1.0)
[2023-09-08] MEDS: 0.9 % Sodium Chloride Flush 3 ML SYRINGE IVFLUSH ×2 (09:17→16:12)
[2023-09-08] MEDS: Docusate Sodium 100 MG CAPSULE PO ×2 (09:17→22:31)
[2023-09-08] MEDS: polyethylene glycoL 3350 17 GM POWD.PACK PO (09:18)
[2023-09-08] MEDS: Lidocaine 4 % Patch ADH..PATCH 1 PATCH TRANSDERMA (09:18)
[2023-09-08] MEDS: Cholecalciferol (Vitamin D3) 25 MCG TABLET PO (09:18)
[2023-09-08] MEDS: traMADoL HCL 50 MG TABLET PO (09:18)
[2023-09-08] MEDS: Multivitamin TABLET 1 TAB PO (09:18)
[2023-09-08] MEDS: Metoprolol Succinate ER 50 MG TAB.ER.24H PO (09:19)
[2023-09-08 09:34] LABS: Anion Gap 17 (12-20); Blood Urea Nitrogen 18 mg/dL (9-16); Calcium 10.3 mg/dL (8.4-10.2); Carbon Dioxide 24 mmol/L (22-29); Chloride 98 mmol/L (96-108); Creatinine Clr Calc Pharmacy 64.4; Estimated Glomerular Filt Rate > 60; Glucose Random 80 mg/dL (60-115); Potassium 3.8 mmol/L (3.3-5.1); Sodium 135 mmol/L (135-145)
--- NOTE | 2023-09-08 10:28 | MHC.CM.PN ---
Per ROUNDS discussion, Patient is not yet medically cleared for dc (blood counts are trending down); home is the goal and CM will continue to follow.
[2023-09-08 11:06] LABS: Glucose, Whole Blood 92 mg/dL (60-115)
[2023-09-08] MEDS: Furosemide 40 MG/4 ML VIAL IVPUSH (11:52)
[2023-09-08] MEDS: Lidocaine HCl 1 % MPF 5 ML VIAL 10 ML SUBCUT (13:00)
[2023-09-08 13:05] LABS: B Type Natriuretic Peptide 151 pg/mL (<100)
[2023-09-08 13:11] LABS: Procalcitonin 0.44 ng/mL
--- NOTE | 2023-09-08 13:32 | PM.PROC ---
Brief Operative Note Date of procedure: 09/08/23 Pre-op diagnosis: elevated LFTs, pancytopenia Post-op diagnosis: same Procedure: US liver biopsy Left lobe, 3 x 18 g cores performed. Gelfoam torpedos x3 placed. No immediate complications Anesthesia: local (25 mcg fentanyl)
[2023-09-08] MEDS: Azithromycin 500 MG in 0.9 % Sodium Chloride 250 ML 125 MG IV (14:24)
--- NOTE | 2023-09-08 14:31 | HO.PM.IMPN ---
Subjective Subjective Date of Service: 09/08/23 Interval History: Anemia/thrombocytopenia Elevated LFTs Possible fluid overload- was npo receive ivf denies any gross bleedin or melena has fevers also has hypoxia Review of Systems comfortable at rest some sob with execerion Generalized weak Denies cough denies urinary c/o, abd pain Physical Exam Vital Signs: Vital Signs: Last Vital Signs Temp 101.3 F H 09/08/23 14:26 Pulse 118 H 09/08/23 14:26 Resp 28 H 09/08/23 11:50 BP 137/60 09/08/23 14:26 Pulse Ox 91 L 09/08/23 14:26 O2 Del Method Nasal Cannula 09/08/23 14:26 O2 Flow Rate 3 09/08/23 14:26 BMI result Body Mass Index 23.1 General: AO X 3, generalized weak. Resp: air entry diminshed at bases ,has few rales CVS: S1,S2,RRR GI: +BS, NT, no distention Skin: No rash Neuro: motor grossly intact. ext: no cyanosis ,has 1+edema Psych: appropriate affect Objective Data Active Medications Acetaminophen (Acetaminophen 325 Mg Tablet) 650 mg PO Q6H PRN PRN Reason: Fever >100.4 Last Admin: 09/08/23 11:57 Dose: 650 mg Documented By: FARHANA Acetaminophen/Butalbital/Caffeine (Butalb/Acetamin/Caff 50/325/40 Tablet) 1 tab PO Q4H PRN PRN Reason: Headache Last Admin: 09/07/23 15:09 Dose: 1 tab Documented By: ELLI Benzocaine (Throat Lozenge, Medicated Lozenge) 1 lozenge MUCOUS MEM Q2H PRN PRN Reason: Sore Throat Last Admin: 09/02/23 10:52 Dose: 1 lozenge Documented By: FRANKY Docusate Sodium (Docusate Sodium 100 Mg Capsule) 100 mg PO BID JORGE Last Admin: 09/08/23 09:17 Dose: 100 mg Documented By: FARHANA Furosemide (Furosemide 20 Mg/2 Ml Vial) 20 mg IVPUSH Q12H JORGE; Protocol Glucose (Glucose Gel 15 Gm Gel..Gram.) 15 gm PO Q15M PRN; Protocol PRN Reason: per Hypoglycemia Standing Ord. Dextrose (D10) 250 mls @ 750 mls/hr IV Q15M PRN; Protocol PRN Reason: per Hypoglycemia Standing Ord. Ceftriaxone Sodium 1 gm/ (Sodium Chloride) 50 mls @ 100 mls/hr IV Q24H [facility] Azithromycin 500 mg/ Sodium (Chloride) 250 mls @ 125 mls/hr IV Q24H [facility] Last Admin: 09/08/23 14:24 Dose: 125 mls/hr Documented By: FARHANA Insulin Human Lispro (Insulin Lispro 100 Unit/Ml 3 Ml Vial) 0 unit SUBCUT QIDACHS [facility]; Protocol Last Admin: 09/08/23 11:12 Dose: Not Given Documented By: FARHANA Non-Admin Reason: No Insulin Coverage Lidocaine (Lidocaine 4 % Patch Adh..Patch) 1 patch TRANSDERMA DAILY [facility]; Protocol Last Admin: 09/08/23 09:18 Dose: 1 patch Documented By: FARHANA Lorazepam (Lorazepam 1 Mg Tablet) 1 mg PO Q4H PRN PRN Reason: anxiety/restlessness Last Admin: 09/08/23 09:19 Dose: 1 mg Documented By: FARHANA Magnesium Hydroxide (Milk Of Magnesia 30 Ml Oral.Susp) 30 ml PO DAILY PRN PRN Reason: Constipation Last Admin: 09/02/23 19:01 Dose: 30 ml Documented By: FRANKY Metoprolol Succinate (Metoprolol Succinate Er 50 Mg Tab.Er.24h) 50 mg PO DAILY [facility]; Protocol Last Admin: 09/08/23 09:19 Dose: 50 mg Documented By: FARHANA Multivitamins/Vitamin C (Multivitamin Tablet) 1 tab PO DAILY [facility] Last Admin: 09/08/23 09:18 Dose: 1 tab Documented By: FARHANA Nitroglycerin (Nitroglycerin 0.4 Mg Tab.Subl) 0.4 mg SUBLINGUAL Q5MX3 PRN PRN Reason: Chest Pain Last Admin: 09/01/23 04:43 Dose: 0.4 mg Documented By: ANITHA Ondansetron HCl (Ondansetron Hcl 4 Mg/2 Ml Vial) 4 mg IVPUSH Q8H PRN PRN Reason: Nausea and Vomiting Last Admin: 09/01/23 04:49 Dose: 4 mg Documented By: HO.KARAARI Polyethylene Glycol (Polyethylene Glycol 3350 17 Gm Powd.Pack) 17 gm PO DAILY [facility] Last Admin: 09/08/23 09:18 Dose: 17 gm Documented By: FARHANA Sodium Biphosphate/Sodium Phosphate (Sodium Phosphate,[place]-Dibasic 133 Ml Enema) 133 ml AR ONCE PRN PRN Reason: Once Last Admin: 09/04/23 12:14 Dose: 133 ml Documented By: IQRA Sodium Chloride (0.9 % Sodium Chloride Flush 3 Ml Syringe) 3 ml IVFLUSH QSHIFT [facility] Last Admin: 09/08/23 09:17 Dose: 3 ml Documented By: FARHANA Tramadol HCl (Tramadol Hcl 50 Mg Tablet) 50 mg PO Q6H PRN PRN Reason: Pain, Severe (Pain Scale 7-10) Last Admin: 09/08/23 09:18 Dose: 50 mg Documented By: FARHANA Vitamin D (Cholecalciferol (Vitamin D3) 25 Mcg Tablet) 25 mcg PO DAILY [facility] Last Admin: 09/08/23 09:18 Dose: 25 mcg Documented By: FARHANA Labs 09/08/23 07:23 09/08/23 09:02 Labs: Laboratory Results - last 24 hr 09/07/23 09/07/23 09/07/23 13:00 17:40 20:23 MCV MCH MCHC RDW Plt Count MPV Immature Gran % (Auto) Neut % (Auto) Lymph % (Auto) [place] % (Auto) Eos % (Auto) Baso % (Auto) Lymph # (Auto) [place] # (Auto) Eos # (Auto) Baso # (Auto) Abs Immat Gran (auto) Absolute Neuts (auto) Absolute Nucleated RBC Nucleated RBC % (auto) Neutrophils % (Manual) Band Neutrophils % Lymphocytes % (Manual) Atypical Lymphs % (Man) Monocytes % (Manual) Metamyelocytes % Myelocytes % Abs Neuts (Manual) Lymphocytes # (Manual) Atyp Lymphs # (Manual) Monocytes # (Manual) Metamyelocytes # Myelocytes # Nucleated RBCs Platelet Estimate Plt Morphology Comment RBC Morphology Microcytosis Hold Purple Top PT INR APTT VBG pH VBG pCO2 VBG pO2 VBG HCO3 VBG O2 Saturation VBG Base Excess Anion Gap Estim Creat Clear Calc Estimated GFR POC Glucose 126 H 124 H Random Glucose Lactic Acid Calcium Total Bilirubin Direct Bilirubin GGT AST ALT Alkaline Phosphatase Lactate Dehydrogenase C-Reactive Protein B-Natriuretic Peptide Total Protein Albumin Procalcitonin Urine Color Urine Appearance Urine pH Ur Specific [place] Urine Protein Urine Glucose (UA) Urine Ketones Urine Blood Urine Nitrite Ur Leukocyte Esterase Urine RBC Urine WBC Ur Squamous Epith Cells Urine Bacteria Hyaline Casts U Random Total Protein Urine Creatinine Protein/Creatinin Ratio Blood Type O Negative Antibody Screen NEGATIVE Crossmatch See Detail 09/08/23 09/08/23 09/08/23 00:47 00:51 00:54 MCV MCH MCHC RDW Plt Count MPV Immature Gran % (Auto) Neut % (Auto) Lymph % (Auto) [place] % (Auto) Eos % (Auto) Baso % (Auto) Lymph # (Auto) [place] # (Auto) Eos # (Auto) Baso # (Auto) Abs Immat Gran (auto) Absolute Neuts (auto) Absolute Nucleated RBC Nucleated RBC % (auto) Neutrophils % (Manual) Band Neutrophils % Lymphocytes % (Manual) Atypical Lymphs % (Man) Monocytes % (Manual) Metamyelocytes % Myelocytes % Abs Neuts (Manual) Lymphocytes # (Manual) Atyp Lymphs # (Manual) Monocytes # (Manual) Metamyelocytes # Myelocytes # Nucleated RBCs Platelet Estimate Plt Morphology Comment RBC Morphology Microcytosis Hold Purple Top PT INR APTT VBG pH 7.64 H* VBG pCO2 24 VBG pO2 121 VBG HCO3 26 VBG O2 Saturation 99.0 VBG Base Excess 6.5 Anion Gap Estim Creat Clear Calc Estimated GFR POC Glucose 106 Random Glucose Lactic Acid 1.9 Calcium Total Bilirubin Direct Bilirubin GGT AST ALT Alkaline Phosphatase Lactate Dehydrogenase C-Reactive Protein B-Natriuretic Peptide 121 H Total Protein Albumin Procalcitonin Urine Color Urine Appearance Urine pH Ur Specific [place] Urine Protein Urine Glucose (UA) Urine Ketones Urine Blood Urine Nitrite Ur Leukocyte Esterase Urine RBC Urine WBC Ur Squamous Epith Cells Urine Bacteria Hyaline Casts U Random Total Protein Urine Creatinine Protein/Creatinin Ratio Blood Type Antibody Screen Crossmatch 09/08/23 09/08/23 09/08/23 06:30 06:42 07:10 MCV MCH MCHC RDW Plt Count MPV Immature Gran % (Auto) Neut % (Auto) Lymph % (Auto) [place] % (Auto) Eos % (Auto) Baso % (Auto) Lymph # (Auto) [place] # (Auto) Eos # (Auto) Baso # (Auto) Abs Immat Gran (auto) Absolute Neuts (auto) Absolute Nucleated RBC Nucleated RBC % (auto) Neutrophils % (Manual) Band Neutrophils % Lymphocytes % (Manual) Atypical Lymphs % (Man) Monocytes % (Manual) Metamyelocytes % Myelocytes % Abs Neuts (Manual) Lymphocytes # (Manual) Atyp Lymphs # (Manual) Monocytes # (Manual) Metamyelocytes # Myelocytes # Nucleated RBCs Platelet Estimate Plt Morphology Comment RBC Morphology Microcytosis Hold Purple Top PT INR APTT VBG pH VBG pCO2 VBG pO2 VBG HCO3 VBG O2 Saturation VBG Base Excess Anion Gap Estim Creat Clear Calc Estimated GFR POC Glucose 84 Random Glucose Lactic Acid Calcium Total Bilirubin 3.9 H Direct Bilirubin 2.3 H GGT 213 H AST 79 H ALT 91 H Alkaline Phosphatase 514 H Lactate Dehydrogenase 856 H C-Reactive Protein 21.33 H B-Natriuretic Peptide Total Protein 6.6 Albumin 4.1 Procalcitonin Urine Color Dark Yellow Urine Appearance Cloudy Urine pH 6.5 Ur Specific [place] 1.015 Urine Protein 30 (1+) H Urine Glucose (UA) Negative Urine Ketones Trace Urine Blood Small (1+) H Urine Nitrite Negative Ur Leukocyte Esterase Trace H Urine RBC 6-10 H Urine WBC 0-5 Ur Squamous Epith Cells 0-2 Urine Bacteria 4+ Hyaline Casts 0-2 U Random Total Protein 47 H Urine Creatinine 67.55 Protein/Creatinin Ratio 0.70 H Blood Type Antibody Screen Crossmatch 09/08/23 09/08/23 09/08/23 07:23 09:02 09:07 MCV 81.7 MCH 28.7 MCHC 35.2 H RDW 14.7 Plt Count 67 L MPV Not Reportable Immature Gran % (Auto) Cancelled Neut % (Auto) Cancelled Lymph % (Auto) Cancelled [place] % (Auto) Cancelled Eos % (Auto) Cancelled Baso % (Auto) Cancelled Lymph # (Auto) Cancelled [place] # (Auto) Cancelled Eos # (Auto) Cancelled Baso # (Auto) Cancelled Abs Immat Gran (auto) Cancelled Absolute Neuts (auto) Cancelled Absolute Nucleated RBC 0.020 H Nucleated RBC % (auto) 0.5 H Neutrophils % (Manual) 61 Band Neutrophils % 11 H Lymphocytes % (Manual) 17 L Atypical Lymphs % (Man) 2 Monocytes % (Manual) 2 Metamyelocytes % 5 Myelocytes % 2 Abs Neuts (Manual) 3.2 Lymphocytes # (Manual) 0.7 L Atyp Lymphs # (Manual) 0.1 Monocytes # (Manual) 0.1 Metamyelocytes # 0.2 Myelocytes # 0.1 Nucleated RBCs 1 H Platelet Estimate DECREASED Plt Morphology Comment NORMAL RBC Morphology NOTED Microcytosis 1+ (5-14) Hold Purple Top SEE NOTE PT 14.6 H INR 1.2 H APTT 24.9 L VBG pH VBG pCO2 VBG pO2 VBG HCO3 VBG O2 Saturation VBG Base Excess Anion Gap 17 Estim Creat Clear Calc 64.4 Estimated GFR > 60 POC Glucose Random Glucose 80 Lactic Acid Calcium 10.3 H D Total Bilirubin Direct Bilirubin GGT AST ALT Alkaline Phosphatase Lactate Dehydrogenase C-Reactive Protein B-Natriuretic Peptide 151 H Total Protein Albumin Procalcitonin 0.44 Urine Color Urine Appearance Urine pH Ur Specific [place] Urine Protein Urine Glucose (UA) Urine Ketones Urine Blood Urine Nitrite Ur Leukocyte Esterase Urine RBC Urine WBC Ur Squamous Epith Cells Urine Bacteria Hyaline Casts U Random Total Protein Urine Creatinine Protein/Creatinin Ratio Blood Type Antibody Screen Crossmatch 09/08/23 11:02 MCV MCH MCHC RDW Plt Count MPV Immature Gran % (Auto) Neut % (Auto) Lymph % (Auto) [place] % (Auto) Eos % (Auto) Baso % (Auto) Lymph # (Auto) [place] # (Auto) Eos # (Auto) Baso # (Auto) Abs Immat Gran (auto) Absolute Neuts (auto) Absolute Nucleated RBC Nucleated RBC % (auto) Neutrophils % (Manual) Band Neutrophils % Lymphocytes % (Manual) Atypical Lymphs % (Man) Monocytes % (Manual) Metamyelocytes % Myelocytes % Abs Neuts (Manual) Lymphocytes # (Manual) Atyp Lymphs # (Manual) Monocytes # (Manual) Metamyelocytes # Myelocytes # Nucleated RBCs Platelet Estimate Plt Morphology Comment RBC Morphology Microcytosis Hold Purple Top PT INR APTT VBG pH VBG pCO2 VBG pO2 VBG HCO3 VBG O2 Saturation VBG Base Excess Anion Gap Estim Creat Clear Calc Estimated GFR POC Glucose 92 Random Glucose Lactic Acid Calcium Total Bilirubin Direct Bilirubin GGT AST ALT Alkaline Phosphatase Lactate Dehydrogenase C-Reactive Protein B-Natriuretic Peptide Total Protein Albumin Procalcitonin Urine Color Urine Appearance Urine pH Ur Specific [place] Urine Protein Urine Glucose (UA) Urine Ketones Urine Blood Urine Nitrite Ur Leukocyte Esterase Urine RBC Urine WBC Ur Squamous Epith Cells Urine Bacteria Hyaline Casts U Random Total Protein Urine Creatinine Protein/Creatinin Ratio Blood Type Antibody Screen Crossmatch Assessment and Plan (1) Thrombocytopenia: Status: Acute (2) Abnormal LFTs: Status: Acute Plan 73 year old female with history of type 2 diabetes, hld, hx breast cancer 1990s to be observed for chest pain sepsis sec to pneumonia vs uti patient has intermittent fevers tachycardia likely ch., low platlets likely due to suspected liver dis related . 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 procalcitonin levels 0.44 plan: patient was given ceftriaxone last night ,will continue ceftriaxone/azithormycin (intiated 09/08/23), continue oxygen. AHRF mulifcatorial:possible fluid overload(received fluid while npo), atelactasis ?pneumonia. bnp elevated in 151 procalcitonin levels 0.44 has some edema d/w pulm-added iv lasix ,will continue iv ceftriaxone/doxycycline(intiated 09/08/23) . d/w Id -recomended to continue above antibiotics until blood cultures comes back ,tick panel ordered. Anemia/thrombocytopenia (unclear etiology)--cbc reviewed by Hematology- no abnormal cells to suggest acute hematological process such as leukemia. iron studies -iron low ,iron sats ,tibc-normal ,ferritin elevated , b12 and folate normal patient denies any gross bleeding or melena,peripheral smear negative for schistocytes. haptoglobin pending ldh elevated fobt negative h/h tredning down 7.7/21.9 above transfusion threshold,platlets also tredning down to 67. got 1 prbc (09/06) ,another 1 unit prbc going, also platlets 1 units ordered in case needed hematology follow up please see further workup in Lft's section below: Elevated LFTs trending up, LDH somewhat improving: ct abd /pelvis with contrast-liver/pancreas seems fine ct abd -lung changes seems moslty similar to previous cta-possible atelactasis ,fibrosis changes from previous radiation treatment . ct abd/pevis ,mri- neg for liver /pancreatic dis, hepatitic, hiv screen neg d/w rheumatology-Ccp antibody,Angiotensin converting enzyme,Sjogren antibodies,Dsdna,immunofixation,Beta 2 glycoprotein antibodies,Lupus anticoagulant,HLA b27,HLA B51 crp,esr seems somewhat improving ,lft's trending up -seen by Gi-liver studies added for ?Pbc: Immunoglobulin subclasses,adali titer,RF,anti-mitochondrial ,anti smooth muscle ab, proteinase ,myeloperoxidase,complement ,haptoglobin,peripheral smear negative for schistocytes. plan: hold statin due to elevated lft's Gi evaluation noted -s/p liver biopsy pending pyuria/hematuria microscopic /bacteruria: also shows b/l renal parenchymal changes vs pyelo: patient denies urinary c/o, ua : has some pyuria/hematuria microscopic /bacteruria. send urine cultures -Corynebacterium species([id number] contaminant). blood culture neg@48hrs,repeat blood cultures sent. patient asymptomatic ,Mri-less likely renal infection, defer antibiotics until urine culture report. Near syncope: unclear etiology possible orthostatic ,anxiety echo:The left ventricular systolic function is normal. The calculated ejection fraction is 70% by biplane method. No obvious valvular pathology seen on this study. tele -tachy head ct negative for acute intracranial abn plan as above,ativan prn ,tien stockings ,moniter orthostasis. Chronic tension headaches-head ct negative for acute intracranial abn may need prn fioricet -outpt follow up dm type 2 diabetes with hyperglycemia: fs 90's -hgb a1c 6.9% started back on diabetic diet after liver biopsy. -admelog ss, hold metformin HLD-statin hold due to elevated lft's. Chest pain- seems atypical, trops flat ,EKG without actue ischemic changes, negative PE bt CTA. cardiology input noted, echo as below, recomended ASA, statin which are hold for now due to anemia/thrombocytopenia Tachycardia- flacutaing ,chronic:likely relaed to anxiety, TSH is normal. dvt prophylaxis- off lovenox due to anemia /thrombocytopenia ,scd. full code. Ongoing hospitalization need: Multifactorial active issue are elevated liver functions, worsening anemia and thrombocytopenia requiring transfusion, acute hypoxemic respiratory failure multifactorial: Need IV antibiotics and Lasix Above management discussed with patient in detail, if further deterioration hemodynamically we will need ICU evaluation. Quality Stroke Does the patient have a stroke diagnosis?: No VTE Prior VTE?: No VTE Risk Level:: Medical - moderate - high VTE Device Contraindication: Treatment Not Indicated VTE Drug Contraindication: N/A - Med Ordered
[2023-09-08 15:28] LABS: Anti Nuclear Antibody Screen NEGATIVE (NEGATIVE)
[2023-09-08] MEDS: Doxycycline Hyclate 100 MG in 0.9 % Sodium Chloride 250 ML 166.67 MG IV (16:11)
[2023-09-08] MEDS: Omeprazole 20 MG CAPSULE.DR PO (16:12)
[2023-09-08 16:25] LABS: Glucose, Whole Blood 92 mg/dL (60-115)
[2023-09-08 16:41] LABS: Glucose, Whole Blood 101 mg/dL (60-115)
[2023-09-08 17:18] LABS: Haptoglobin 445 mg/dL (43-212)
[2023-09-08 20:22] LABS: Glucose, Whole Blood 108 mg/dL (60-115)
[2023-09-08 20:34] LABS: Hematocrit 29.6 % (37.0-47.0); Hemoglobin 10.3 g/dl (12.0-16.0); Mean Corpuscular HGB Conc 34.8 g/dl (31.0-35.0); Mean Corpuscular Hemoglobin 28.3 pg (27.0-33.0); Mean Corpuscular Volume 81.3 fL (80.0-98.0); Mean Platelet Volume 8.9 fL (9.4-12.3); Red Blood Count 3.64 X10*6/uL (4.20-5.50); Red Cell Distribution Width 15.5 % (11.0-16.0)
[2023-09-08 21:17] LABS: NRBC Pct Auto 1.2 /100WBC (0.0-0.2); Platelet Count 60 X10*3/uL (160-400)
[2023-09-08 21:52] LABS: Myeloperoxidase Antibody <1.0 AI; Proteinase 3 PR3 Antibodies <1.0 AI
[2023-09-08 21:52] LABS: Anti DNA DS Antibody <1 IU/mL; Antibody to SS-A Antigen <1.0 NEG AI (<1.0 NEG); Antibody to SS-B Antigen <1.0 NEG AI (<1.0 NEG)
[2023-09-08] MEDS: Furosemide 20 MG/2 ML VIAL IVPUSH (23:53)
[2023-09-09] VITALS (10 sets, daily range): BP systolic 132–156; BP diastolic 59–70; PULSE 99–125; RESP 14–23; TEMP 36.4–38.4; O2SAT 90–93
[2023-09-09] MEDS: Doxycycline Hyclate 100 MG in 0.9 % Sodium Chloride 250 ML 166.67 MG IV ×2 (04:01→15:33)
[2023-09-09] MEDS: Omeprazole 20 MG CAPSULE.DR PO ×2 (05:18→17:13)
[2023-09-09] MEDS: traMADoL HCL 50 MG TABLET PO ×2 (05:18→12:34)
--- NOTE | 2023-09-09 05:47 | PC.NURSE ---
0530 pt medicated with tramadol for c/o 10/31 pain to R shoulder. pt wincing with ROM to extremity, elevated HR 120's and tachypneic. skin also appears jaundiced this md manuela aware.
[2023-09-09 06:23] LABS: Alanine Aminotransferase 82 U/L (0-31); Albumin Level 3.5 g/dL (3.5-5.0); Alkaline Phosphatase 564 U/L (39-117); Aspartate Amino Transferase 81 U/L (5-31); Bilirubin Direct 3.1 mg/dL (0.0-0.5); Bilirubin Total 4.4 mg/dL (0.0-1.0); Total Protein 6.1 g/dL (6.5-8.0)
[2023-09-09] MEDS: Metoprolol Succinate ER 50 MG TAB.ER.24H PO (07:43)
[2023-09-09 08:02] LABS: Glucose, Whole Blood 96 mg/dL (60-115)
[2023-09-09 08:04] LABS: Complement C3 240 mg/dL (83-193)
[2023-09-09 08:24] LABS: Hematocrit 29.4 % (37.0-47.0); Hemoglobin 10.4 g/dl (12.0-16.0); Mean Corpuscular HGB Conc 35.4 g/dl (31.0-35.0); Mean Corpuscular Hemoglobin 28.7 pg (27.0-33.0); Mean Corpuscular Volume 81.2 fL (80.0-98.0); Mean Platelet Volume 9.8 fL (9.4-12.3); Red Blood Count 3.62 X10*6/uL (4.20-5.50); Red Cell Distribution Width 15.6 % (11.0-16.0); White Blood Count 4.8 X10*3/uL (4.8-10.8)
[2023-09-09 08:29] LABS: Platelet Count 54 X10*3/uL (160-400)
[2023-09-09] MEDS: 0.9 % Sodium Chloride Flush 3 ML SYRINGE IVFLUSH ×3 (08:34→15:40)
[2023-09-09] MEDS: Lidocaine 4 % Patch ADH..PATCH 1 PATCH TRANSDERMA (08:34)
[2023-09-09] MEDS: Docusate Sodium 100 MG CAPSULE PO ×2 (08:35→20:20)
[2023-09-09] MEDS: Cholecalciferol (Vitamin D3) 25 MCG TABLET PO (08:35)
[2023-09-09] MEDS: Multivitamin TABLET 1 TAB PO (08:35)
[2023-09-09] MEDS: polyethylene glycoL 3350 17 GM POWD.PACK PO (08:36)
[2023-09-09 08:38] LABS: Anion Gap 19 (12-20)
[2023-09-09 08:41] LABS: Blood Urea Nitrogen 29 mg/dL (9-16); Calcium 10.4 mg/dL (8.4-10.2); Carbon Dioxide 23 mmol/L (22-29); Chloride 97 mmol/L (96-108); Creatinine Clr Calc Pharmacy 58.7; Estimated Glomerular Filt Rate > 60; Glucose Random 85 mg/dL (60-115); Lactate Dehydrogenase 917 U/L (122-220); Potassium 3.4 mmol/L (3.3-5.1); Sodium 136 mmol/L (135-145)
[2023-09-09 09:43] LABS: Mitochondrial Antibodies NEGATIVE (NEGATIVE)
[2023-09-09 10:23] LABS: IgA 168 mg/dL (70-320); IgG 735 mg/dL (600-1540); IgM 153 mg/dL (50-300)
[2023-09-09] MEDS: hydrOXYzine HCL 10 MG TABLET PO (11:01)
--- NOTE | 2023-09-09 11:03 | P.PNHO-ONC_ITS ---
Medical Summary - Medical Summary Date of Service: 09/09/23 Chief complaint: Weakness Primary Care Provider: Li Whitehead MD Medical Summary: Diagnosis: Abnormal LFTs/normocytic anemia Patient admitted for near syncope, found to be in sinus tachycardia. Patient was treated for left breast cancer 24 years ago. She underwent lumpectomy followed by radiation therapy and 5 years of tamoxifen. She did not receive chemotherapy. She underwent hysterectomy around the same time. This no family history of breast cancer or any other cancers that she can recall. No family history of diabetes either. Evaluation in the emergency department revealed leukocytosis of 11.0. Normocytic anemia with h/h 10.3/29.9%. Renal fx normal, lytes normal except for Na 134, Ca 10.7. Glucose 133. Initial trop 17.3, repeat 24.8. EKG shows sinus tach, no acute ischemic changes. Head CT negative for acute intracranial abnormality. CTA chest negative for PE, shows pleural parenchymal irregularity along the anterior/anterolateral aspect of the ELISA with punctate calcifications with bilateral pulmonary nodules. Interval History Interval history: Jaclyn Looney is a 73 year old female who is admitted for progressive weakness and findings of elevated D-dimer and sinus tachycardia. Patient states that for the last 2 weeks she has been getting weaker with reports of palpitation and dizziness. She almost fainted over the weekend when she was doing yard work. She has been experiencing palpitations and occasional chest pain. She has had poor appetite and unintentional weight loss. She was recently diagnosed with type 2 diabetes and was started on metformin. Patient was treated for left breast cancer 24 years ago. She underwent lumpectomy followed by radiation therapy and 5 years of tamoxifen. She did not receive chemotherapy. She underwent hysterectomy around the same time. This no family history of breast cancer or any other cancers that she can recall. No family history of diabetes either. Evaluation in the emergency department revealed leukocytosis of 11.0. Normocytic anemia with h/h 10.3/29.9%. Renal fx normal, lytes normal except for Na 134, Ca 10.7. Glucose 133. Initial trop 17.3, repeat 24.8. EKG shows sinus tach, no acute ischemic changes. Head CT negative for acute intracranial abnormality. CTA chest negative for PE, shows pleural parenchymal irregularity along the anterior/anterolateral aspect of the ELISA with punctate calcifications with bilateral pulmonary nodules. Patient is doing about the same, has had liver biopsy yesterday. She feels scared and worried, denies any acute complaints such as chest pain or shortness of breath. No fever or chills. Review of Systems - Constitutional Reports as per HPI - Neurologic Reports no additional neurologic complaints, Reports as per HPI, Denies focal weakness [facility] Medical History: Medical History (Last Reviewed 09/10/23 @ 00:11 by Arminda King MD) Cancer of breast Chest pain Hyperlipidemia Irregular heart beat Kidney stone Type 2 diabetes mellitus with hyperglycemia, without long-term current use of insulin Family History: Family History (Last Reviewed 09/10/23 @ 00:11 by Arminda King MD) Mother Tuberculosis Brother Myocardial infarction, Onset Age: 55 Skin cancer Father Skin cancer Surgical History: Surgical History (Last Reviewed 09/10/23 @ 00:11 by Arminda King MD) H/O colonoscopy History of lumpectomy of left breast History of surgery on arm Hx of thumb surgery S/P JUSTIN (total abdominal hysterectomy) Social History: Social History (Last Reviewed 09/10/23 @ 00:11 by Arminda King MD) Living Situation History: Household Members: Spouse Housing: House Do you presently have visiting nurse or other home services: No Alcohol History Details: 1. How often do you have a drink containing alcohol?: a. Never AUDIT-C Alcohol total score: 0 Currently Displaying Signs/Symptoms of Alcohol Withdrawal: No Tobacco History: Patient Tobacco Use Status: Never used Tobacco Tobacco use type: Cigarette Smoked in Last 30 Days: No e-Cigarette/Vaping Use: Never Used Second Hand Smoke Exposure: No Substance Use History: Use of substances other than those prescribed or required for medical reasons : No Currently Displaying Signs/Symptoms of Drug Intoxication Withdrawal: No Domestic Abuse History: Have you been hit, kicked, punched, or otherwise hurt by someone within the past year? If so, by whom?: No Do you feel safe in your current relationship?: Yes Is there a partner from a previous relationship who is making you feel unsafe now?: No Are you made to feel afraid or neglected: No Advance Directives: Advance Directives: No Advance Directives Information Provided: No Homicidal Assessment: Do you have a plan to hurt others: No Plan Nutrition Assessment: Recently lost weight without trying: Yes How much weight loss: Unsure Eating poorly because of decreased appetite: Yes Nutrition screen score: 5 Nutrition Risks: Poor intake 0-25% >4 days Patient : No : No Poor oral hygiene: No Occupation Assessmet: service: No Current occupational status: retired Home Medications and Allergies Current Medications: Current Medications Acetaminophen (Acetaminophen 325 Mg Tablet) 650 mg PO Q6H PRN PRN Reason: Fever >100.4 Last Admin: 09/08/23 22:31 Dose: 650 mg Acetaminophen/Butalbital/Caffeine (Butalb/Acetamin/Caff 50/325/40 Tablet) 1 tab PO Q4H PRN PRN Reason: Headache Last Admin: 09/07/23 15:09 Dose: 1 tab Benzocaine (Throat Lozenge, Medicated Lozenge) 1 lozenge MUCOUS MEM Q2H PRN PRN Reason: Sore Throat Last Admin: 09/02/23 10:52 Dose: 1 lozenge Docusate Sodium (Docusate Sodium 100 Mg Capsule) 100 mg PO BID JORGE Last Admin: 09/09/23 08:35 Dose: 100 mg Furosemide (Furosemide 20 Mg/2 Ml Vial) 20 mg IVPUSH Q12H JORGE; Protocol Last Admin: 09/08/23 23:53 Dose: 20 mg Glucose (Glucose Gel 15 Gm Gel..Gram.) 15 gm PO Q15M PRN; Protocol PRN Reason: per Hypoglycemia Standing Ord. Dextrose (D10) 250 mls @ 750 mls/hr IV Q15M PRN; Protocol PRN Reason: per Hypoglycemia Standing Ord. Ceftriaxone Sodium 1 gm/ (Sodium Chloride) 50 mls @ 100 mls/hr IV Q24H [facility] Last Infusion: 09/08/23 23:01 Dose: Infused Doxycycline Hyclate 100 mg/ (Sodium Chloride) 250 mls @ 166.67 mls/hr IV Q12H [facility] Last Infusion: 09/09/23 05:31 Dose: Infused Insulin Human Lispro (Insulin Lispro 100 Unit/Ml 3 Ml Vial) 0 unit SUBCUT QIDACHS [facility]; Protocol Last Admin: 09/09/23 08:05 Dose: Not Given Lidocaine (Lidocaine 4 % Patch Adh..Patch) 1 patch TRANSDERMA DAILY [facility]; Protocol Last Admin: 09/09/23 08:34 Dose: 1 patch Lorazepam (Lorazepam 1 Mg Tablet) 1 mg PO Q4H PRN PRN Reason: anxiety/restlessness Last Admin: 09/08/23 09:19 Dose: 1 mg Magnesium Hydroxide (Milk Of Magnesia 30 Ml Oral.Susp) 30 ml PO DAILY PRN PRN Reason: Constipation Last Admin: 09/02/23 19:01 Dose: 30 ml Metoprolol Succinate (Metoprolol Succinate Er 50 Mg Tab.Er.24h) 50 mg PO DAILY [facility]; Protocol Last Admin: 09/09/23 07:43 Dose: 50 mg Multivitamins/Vitamin C (Multivitamin Tablet) 1 tab PO DAILY [facility] Last Admin: 09/09/23 08:35 Dose: 1 tab Nitroglycerin (Nitroglycerin 0.4 Mg Tab.Subl) 0.4 mg SUBLINGUAL Q5MX3 PRN PRN Reason: Chest Pain Last Admin: 09/01/23 04:43 Dose: 0.4 mg Omeprazole (Omeprazole 20 Mg Capsule.Dr) 20 mg PO BID@0630,1630 [facility] Last Admin: 09/09/23 05:18 Dose: 20 mg Ondansetron HCl (Ondansetron Hcl 4 Mg/2 Ml Vial) 4 mg IVPUSH Q8H PRN PRN Reason: Nausea and Vomiting Last Admin: 09/01/23 04:49 Dose: 4 mg Polyethylene Glycol (Polyethylene Glycol 3350 17 Gm Powd.Pack) 17 gm PO DAILY [facility] Last Admin: 09/09/23 08:36 Dose: 17 gm Sodium Biphosphate/Sodium Phosphate (Sodium Phosphate,[place]-Dibasic 133 Ml Enema) 133 ml [place] ONCE PRN PRN Reason: Once Last Admin: 09/04/23 12:14 Dose: 133 ml Sodium Chloride (0.9 % Sodium Chloride Flush 3 Ml Syringe) 3 ml IVFLUSH QSHIFT [facility] Last Admin: 09/09/23 08:34 Dose: 3 ml Tramadol HCl (Tramadol Hcl 50 Mg Tablet) 50 mg PO Q6H PRN PRN Reason: Pain, Severe (Pain Scale 7-10) Last Admin: 09/09/23 05:18 Dose: 50 mg Vitamin D (Cholecalciferol (Vitamin D3) 25 Mcg Tablet) 25 mcg PO DAILY [facility] Last Admin: 09/09/23 08:35 Dose: 25 mcg Home Medications ?Medication ?Instructions ?Recorded ?Confirmed ?Type lovastatin 20 mg tablet 20 mg PO DAILY 01/13/23 08/31/23 History metoprolol succinate 50 mg 50 mg PO DAILY 08/19/23 08/31/23 History tablet,extended release 24 hr cholecalciferol (vitamin D3) 25 25 mcg PO DAILY 08/31/23 08/31/23 History mcg (1,000 unit) tablet (Vitamin D3) multivitamin 1 tab PO DAILY 08/31/23 08/31/23 History Allergies Allergy/AdvReac Type Severity Reaction Status Date / Time sulfamethoxazole Allergy Intermediate HIVES Verified 08/31/23 01:50 [From Bactrim] trimethoprim [From Bactrim] Allergy Intermediate HIVES Verified 08/31/23 01:50 amoxicillin [Amoxicillin] Allergy Mild RASH Verified 08/31/23 01:50 Sulfa (Sulfonamide Allergy Unknown Hives Verified 08/31/23 01:50 Antibiotics) Exam Vital signs: Vital Signs Temp 98.1 F 09/09/23 08:55 Pulse 120 H 09/09/23 08:00 Resp 20 09/09/23 08:00 BP 142/70 H 09/09/23 08:00 Pulse Ox 90 L 09/09/23 08:00 O2 Del Method Nasal Cannula 09/09/23 08:00 O2 Flow Rate 2 09/09/23 08:00 Intake & Output 09/08/23 09/09/23 09/09/23 18:59 06:59 18:59 Intake Total 662.5 / 1762.5 1100 / 1762.5 Output Total 500 / 2050 1550 / 2050 Balance 162.5 / -287.5 -450 / -287.5 Urine Output (Average ml/kg/hr) 0.66 2.05 2.05 Intake: Intake, Oral Amount 550 / 550 Intake (Blood Product) Amount 350 / 350 Red Blood Cells (E0382) Unit 350 / 350 [id number] Intake, IV Amount 312.5 / 862.5 550 / 862.5 0.9 % Sodium Chloride 100 ml @ 100 / 100 100 mls/hr IV ONCE ONE Rx#: [id number] Azithromycin 500 mg In 0.9 % 212.5 / 212.5 Sodium Chloride 250 ml @ 125 mls/hr IV Q24H [facility] Rx#: [id number] Doxycycline Hyclate 100 mg In 0 500 / 500 .9 % Sodium Chloride 250 ml @ 166.67 mls/hr IV Q12H [facility] Rx#: [id number] cefTRIAXone sodium 1 gm In 0.9 50 / 50 % Sodium Chloride 50 ml @ 100 mls/hr IV Q24H [facility] Rx#: [id number] Output: Output, Urine Amount 500 / 2050 1550 / 2050 Output, Stool Amount 0 / 0 Other: Dinner % Eaten 50% Number of Incontinent Voids 1 0 Number of Bowel Movements 0 Urine purewick Urine Color Mamta Last Bowel Movement 09/04/23 09/03/23 Weight 63 kg BMI result Body Mass Index 23.1 - Constitutional Present: no acute distress - Routine HEENT Exam Head: Present: normal inspection - Routine Neck Exam Absent: lymphadenopathy - Routine Respiratory Exam Present: CTAB - Routine Cardiovascular Exam Cardiovascular: Present: S1, S2, tachycardia - Routine Abdominal Exam Present: soft. Absent: mass - Routine Psychiatric Exam Present: anxious Data - Labs CBC & Chem 7: 09/10/23 05:45 09/10/23 05:45 - Imaging Radiologist's impression: ITS Impressions Chest X-Ray 08/31/23 02:03 IMPRESSION: No focal consolidation. Suggestion of mild central peribronchial thickening which may reflect airways disease. Head CT 08/31/23 06:42 IMPRESSION: No acute intracranial abnormality including hemorrhage, mass effect, hydrocephalus, or acute territorial edematous infarction. Chest CTA 08/31/23 09:21 IMPRESSION: 1. No pulmonary emboli. 2. Pleural parenchymal irregularity along the anterior/anterolateral aspect of the left upper lobe with punctate calcifications, unclear etiology though may reflect infectious/inflammatory etiology versus fibrotic changes versus sequela of prior surgery/pleurodesis or radiation. Correlation with past medical history. 3. Bilateral pulmonary nodules the largest measuring up to 3 mm. Follow-up as per Fleischner criteria. 4. Decreased hepatic attenuation suggesting hepatic steatosis. 5. Small hiatal hernia. Various management parameters for solitary pulmonary nodules are in the literature. According to the Fleischner Society, recommendations for pulmonary nodules are as follows: According to the UPDATED 2017 Fleischner Society recommendations, the advised follow-up imaging for solid nodules < 6 mm is: LOW RISK PATIENT: No routine follow-up. Abdomen/Pelvis CT 09/02/23 14:35 IMPRESSION: 1. Interval development of Wedge-shaped airspace disease with air bronchograms in the right lower lobe contiguous with crescent-shaped dependent atelectasis along the posterior pleural border. 2. The current contrast enhanced examination shows Markedly mottled nephrogram with numerous irregular hypoenhancement in bilateral kidneys. Differential diagnosis include parenchymal renal disease or multifocal pyelonephritis. 3. Interval increase in size and number of Multiple left renal calculi. Unchanged superior medial left upper renal pole simple cyst, for which no follow up imaging is recommended. 4. Unchanged status post hysterectomy. Fleischner guidelines were followed. Abdomen MRI 09/03/23 19:35 IMPRESSION: * No evidence of pancreatic or hepatic malignancy. * No abdominal mass or lymphadenopathy. * Gallbladder is underdistended. There appears to be focal adenomyomatosis of the gallbladder fundus. * The observation of patchy, heterogeneous signal intensity of both renal cortices requires clinical and laboratory correlation. This could be a manifestation of inflammation/nephritis. The lack of any appreciable perinephric edema or perinephric fluid collection suggests that it is unlikely that the patient has infectious pyelonephritis. Correlation with urinalysis and urine culture may be helpful. Chest X-Ray 09/08/23 00:20 IMPRESSION: Low lung volumes. Lower lung field increased markings which may be due to low lung volumes with crowded vasculature. There is no focal lung consolidation or pleural effusion. Liver Biopsy Ultrasound 09/08/23 13:00 Impression: Ultrasound-guided liver biopsy Chest CT 09/08/23 14:06 IMPRESSION: There are extensive bilateral peribronchiolar opacities, with more dense consolidative foci noted at the right base. The findings suggest an infectious etiology, for which clinical correlation is recommended. No mass or nodule is seen. There is no thoracic lymphadenopathy or pleural effusion. There are small bilateral pleural effusions, right greater then left. No aggressive osseous lesion is seen. Recommend follow-up imaging to clearance. Fleischner guidelines were followed. Assessment and Plan Patient Active problem list reviewed?: Yes (1) Anemia Status: Acute Assessment and plan: 1. This is a pleasant 73-year-old woman with remote history of left breast cancer now presenting with mild normocytic anemia, new onset diabetes, elevated liver enzymes and LDH worrisome for underlying malignancy. CT angiogram of chest was negative for pulmonary embolism. D-dimer is elevated. Ferritin another marker of inflammation is also high. LDH is over 1100. Normal vitamin B12 and folate levels. Peripheral smear evaluation shows no abnormal cells to suggest acute hematological process such as leukemia. Her kidney functions are stable, she does not have significant thrombocytopenia, no evidence of hemolysis. She has had a colonoscopy in 2022 which showed benign polyps. She had CT abdomen/pelvis with contrast on 09/02/2023 which showed normal liver, spleen and pancreas. Mottled nephrogram suggestive of parenchymal renal disease or multifocal pyelonephritis, left renal calculi, status post hysterectomy. Patient has had liver biopsy on 09/08/2023. Preliminary report favors drug- induced hepatitis. Most recent new medication was metformin. Her anemia and thrombocytopenia is probably manifestation of this ongoing liver disease. She has received blood and platelet transfusion. No evidence of DIC or myelophthisic process. Continue to monitor CBC. - Time Spent With Patient Time Spent with Patient (in minutes): 15
[2023-09-09] MEDS: Furosemide 20 MG/2 ML VIAL IVPUSH (11:06)
[2023-09-09 11:48] LABS: Glucose, Whole Blood 168 mg/dL (60-115)
[2023-09-09] MEDS: Insulin Lispro 100 UNIT/ML 3 ML VIAL SUBCUT ×2 (12:30→17:13)
[2023-09-09 14:28] LABS: Cyclic Citrullinated Peptide <16 UNITS
--- NOTE | 2023-09-09 15:51 | P.PNIM_ITS ---
Subjective Subjective Date of Service: 09/10/23 Interval History: Complaining of right shoulder pain, appears very anxious tachypneic, tachycardic, complaining of decreased by mouth intake denies nausea, no abdominal pain, denies urinary symptoms of urgency, frequency, no flank discomfort, no diarrhea, noted to have intermittent fevers up to 101. Review of Systems All other systems reviewed and negative Physical Exam 2 Vital Signs: Vital Signs: Last Vital Signs Temp 99.0 F 09/09/23 11:25 Pulse 116 H 09/09/23 11:25 Resp 20 09/09/23 11:25 BP 156/69 H 09/09/23 11:25 Pulse Ox 90 L 09/09/23 11:25 O2 Del Method Nasal Cannula 09/09/23 11:25 O2 Flow Rate 2 09/09/23 11:25 BMI result Body Mass Index 23.1 Const: Other: General anxious, tachypneic, tachycardic Neck supple no JVD. CVS regular rate rhythm, tachycardic Respiratory lungs clear to auscultation, no respiratory distress, no wheeze, no rhonchi. Gastrointestinal abdomen soft, non tender, bowel sounds audible, no guarding , no rigidity. Extremities no edema. Neuro non focal Skin no rash Right shoulder limited range of motion due to pain Psych anxious appearing Objective Data Active Medications Acetaminophen (Acetaminophen 325 Mg Tablet) 650 mg PO Q6H PRN PRN Reason: Fever >100.4 Last Admin: 09/08/23 22:31 Dose: 650 mg Documented By: ALEC Acetaminophen/Butalbital/Caffeine (Butalb/Acetamin/Caff 50/325/40 Tablet) 1 tab PO Q4H PRN PRN Reason: Headache Last Admin: 09/07/23 15:09 Dose: 1 tab Documented By: ELLI Benzocaine (Throat Lozenge, Medicated Lozenge) 1 lozenge MUCOUS MEM Q2H PRN PRN Reason: Sore Throat Last Admin: 09/02/23 10:52 Dose: 1 lozenge Documented By: FRANKY Docusate Sodium (Docusate Sodium 100 Mg Capsule) 100 mg PO BID JORGE Last Admin: 09/09/23 08:35 Dose: 100 mg Documented By: KATHI Furosemide (Furosemide 20 Mg/2 Ml Vial) 20 mg IVPUSH Q12H JORGE; Protocol Last Admin: 09/09/23 11:06 Dose: 20 mg Documented By: KATHI Glucose (Glucose Gel 15 Gm Gel..Gram.) 15 gm PO Q15M PRN; Protocol PRN Reason: per Hypoglycemia Standing Ord. Dextrose (D10) 250 mls @ 750 mls/hr IV Q15M PRN; Protocol PRN Reason: per Hypoglycemia Standing Ord. Ceftriaxone Sodium 1 gm/ (Sodium Chloride) 50 mls @ 100 mls/hr IV Q24H JORGE Last Infusion: 09/08/23 23:01 Dose: Infused Documented By: ALEC Doxycycline Hyclate 100 mg/ (Sodium Chloride) 250 mls @ 166.67 mls/hr IV Q12H JORGE Last Admin: 09/09/23 15:33 Dose: 166.67 mls/hr Documented By: KATHI Insulin Human Lispro (Insulin Lispro 100 Unit/Ml 3 Ml Vial) 0 unit SUBCUT QIDACHS [facility]; Protocol Last Admin: 09/09/23 12:30 Dose: 2 unit Documented By: KATHI Lidocaine (Lidocaine 4 % Patch Adh..Patch) 1 patch TRANSDERMA DAILY [facility]; Protocol Last Admin: 09/09/23 08:34 Dose: 1 patch Documented By: KATHI Lorazepam (Lorazepam 1 Mg Tablet) 1 mg PO Q4H PRN PRN Reason: anxiety/restlessness Last Admin: 09/08/23 09:19 Dose: 1 mg Documented By: FARHANA Magnesium Hydroxide (Milk Of Magnesia 30 Ml Oral.Susp) 30 ml PO DAILY PRN PRN Reason: Constipation Last Admin: 09/02/23 19:01 Dose: 30 ml Documented By: FRANKY Metoprolol Succinate (Metoprolol Succinate Er 50 Mg Tab.Er.24h) 50 mg PO DAILY JORGE; Protocol Last Admin: 09/09/23 07:43 Dose: 50 mg Documented By: KATHI Comments: early per Multivitamins/Vitamin C (Multivitamin Tablet) 1 tab PO DAILY JORGE Last Admin: 09/09/23 08:35 Dose: 1 tab Documented By: KATHI Nitroglycerin (Nitroglycerin 0.4 Mg Tab.Subl) 0.4 mg SUBLINGUAL Q5MX3 PRN PRN Reason: Chest Pain Last Admin: 09/01/23 04:43 Dose: 0.4 mg Documented By: ANITHA Omeprazole (Omeprazole 20 Mg Capsule.) 20 mg PO BID@0630,1630 [facility] Last Admin: 09/09/23 05:18 Dose: 20 mg Documented By: ALEC Ondansetron HCl (Ondansetron Hcl 4 Mg/2 Ml Vial) 4 mg IVPUSH Q8H PRN PRN Reason: Nausea and Vomiting Last Admin: 09/01/23 04:49 Dose: 4 mg Documented By: ANITHA Polyethylene Glycol (Polyethylene Glycol 3350 17 Gm Powd.Pack) 17 gm PO DAILY [facility] Last Admin: 09/09/23 08:36 Dose: 17 gm Documented By: KATHI Sodium Biphosphate/Sodium Phosphate (Sodium Phosphate,[place]-Dibasic 133 Ml Enema) 133 ml ND ONCE PRN PRN Reason: Once Last Admin: 09/04/23 12:14 Dose: 133 ml Documented By: IQRA Sodium Chloride (0.9 % Sodium Chloride Flush 3 Ml Syringe) 3 ml IVFLUSH QSHIFT [facility] Last Admin: 09/09/23 15:40 Dose: 3 ml Documented By: KATHI Tramadol HCl (Tramadol Hcl 50 Mg Tablet) 50 mg PO Q6H PRN PRN Reason: Pain, Severe (Pain Scale 7-10) Last Admin: 09/09/23 12:34 Dose: 50 mg Documented By: KATHI Vitamin D (Cholecalciferol (Vitamin D3) 25 Mcg Tablet) 25 mcg PO DAILY [facility] Last Admin: 09/09/23 08:35 Dose: 25 mcg Documented By: KATHI Labs 09/10/23 05:45 09/10/23 05:45 Labs: Laboratory Results - last 24 hr 09/02/23 09/03/23 09/05/23 07:02 06:12 10:05 MCV MCH MCHC RDW Plt Count MPV Absolute Nucleated RBC Nucleated RBC % (auto) Haptoglobin Hold Purple Top Anion Gap Estim Creat Clear Calc Estimated GFR POC Glucose Random Glucose Calcium Total Bilirubin Direct Bilirubin AST ALT Alkaline Phosphatase Lactate Dehydrogenase Total Protein Albumin IgG Total 735 IgA Total 168 IgM 153 YOU Interpretation Cycl Citrul Peptide IgG ADALI Titer TNP ADALI Titer 2 TNP ADALI Titer 3 TNP ADALI Pattern TNP ADALI Pattern 2 TNP ADALI Pattern 3 TNP Proteinase 3 (PR3) Ab Myeloperoxidase Ab SS-A/Ro Antibody SS-B/La Antibody Double Strand DNA Ab Anti-Mitochondrial Ab NEGATIVE Complement C3 240 H Complement C4 36 09/05/23 09/07/23 09/08/23 10:06 05:40 15:49 MCV MCH MCHC RDW Plt Count MPV Absolute Nucleated RBC Nucleated RBC % (auto) Haptoglobin 445 H Hold Purple Top Anion Gap Estim Creat Clear Calc Estimated GFR POC Glucose 101 Random Glucose Calcium Total Bilirubin Direct Bilirubin AST ALT Alkaline Phosphatase Lactate Dehydrogenase Total Protein Albumin IgG Total IgA Total IgM YOU Interpretation Cycl Citrul Peptide IgG <16 ADALI Titer ADALI Titer 2 ADALI Titer 3 ADALI Pattern ADALI Pattern 2 ADALI Pattern 3 Proteinase 3 (PR3) Ab <1.0 Myeloperoxidase Ab <1.0 SS-A/Ro Antibody <1.0 NEG SS-B/La Antibody <1.0 NEG Double Strand DNA Ab <1 Anti-Mitochondrial Ab Complement C3 Complement C4 09/08/23 09/08/23 09/08/23 16:21 20:13 20:25 MCV 81.3 MCH 28.3 MCHC 34.8 RDW 15.5 Plt Count 60 L MPV 8.9 L Absolute Nucleated RBC 0.070 H Nucleated RBC % (auto) 1.2 H Haptoglobin Hold Purple Top Anion Gap Estim Creat Clear Calc Estimated GFR POC Glucose 92 108 Random Glucose Calcium Total Bilirubin Direct Bilirubin AST ALT Alkaline Phosphatase Lactate Dehydrogenase Total Protein Albumin IgG Total IgA Total IgM YOU Interpretation Cycl Citrul Peptide IgG ADALI Titer ADALI Titer 2 ADALI Titer 3 ADALI Pattern ADALI Pattern 2 ADALI Pattern 3 Proteinase 3 (PR3) Ab Myeloperoxidase Ab SS-A/Ro Antibody SS-B/La Antibody Double Strand DNA Ab Anti-Mitochondrial Ab Complement C3 Complement C4 09/09/23 09/09/23 09/09/23 05:15 07:57 11:37 MCV MCH MCHC RDW Plt Count MPV Absolute Nucleated RBC Nucleated RBC % (auto) Haptoglobin Hold Purple Top SEE NOTE Anion Gap 19 Estim Creat Clear Calc 58.7 Estimated GFR > 60 POC Glucose 96 168 H Random Glucose 85 Calcium 10.4 H Total Bilirubin 4.4 H Direct Bilirubin 3.1 H AST 81 H ALT 82 H Alkaline Phosphatase 564 H Lactate Dehydrogenase 917 H Total Protein 6.1 L Albumin 3.5 IgG Total IgA Total IgM YOU Interpretation Cycl Citrul Peptide IgG ADALI Titer ADALI Titer 2 ADALI Titer 3 ADALI Pattern ADALI Pattern 2 ADALI Pattern 3 Proteinase 3 (PR3) Ab Myeloperoxidase Ab SS-A/Ro Antibody SS-B/La Antibody Double Strand DNA Ab Anti-Mitochondrial Ab Complement C3 Complement C4 09/09/23 Unknown MCV 81.2 MCH 28.7 MCHC 35.4 H RDW 15.6 Plt Count 54 L MPV 9.8 Absolute Nucleated RBC 0.050 H Nucleated RBC % (auto) 1.0 H Haptoglobin Hold Purple Top Anion Gap Estim Creat Clear Calc Estimated GFR POC Glucose Random Glucose Calcium Total Bilirubin Direct Bilirubin AST ALT Alkaline Phosphatase Lactate Dehydrogenase Total Protein Albumin IgG Total IgA Total IgM YOU Interpretation Cycl Citrul Peptide IgG ADALI Titer ADALI Titer 2 ADALI Titer 3 ADALI Pattern ADALI Pattern 2 ADALI Pattern 3 Proteinase 3 (PR3) Ab Myeloperoxidase Ab SS-A/Ro Antibody SS-B/La Antibody Double Strand DNA Ab Anti-Mitochondrial Ab Complement C3 Complement C4 Microbiology Microbiology Results: Microbiology 09/08/23 00:47 Blood Culture - Preliminary Blood - Venous No growth after 24 hours. 09/08/23 00:47 Blood Culture - Preliminary Blood - Venous No growth after 24 hours. 09/03/23 13:20 Blood Culture - Final Blood - Venous No growth after 5 days. 09/03/23 13:20 Blood Culture - Final Blood - Venous No growth after 5 days. Assessment and Plan (1) Thrombocytopenia: Status: Acute (2) Abnormal LFTs: Status: Acute Plan 73 year old female with history of type 2 diabetes, hld, hx breast cancer 1990s to be observed for chest pain Sepsis sec to pneumonia vs UTI, question due to liver process,vs tick-borne illness Recurrent fevers/tachycardia, low platelets likely due to suspected liver disease, no severe sepsis lactic acid -normal,blood culture negative times 24 hours, urine culture grew Corynebacterium species likely contaminant procalcitonin levels 0.44 on IV ceftriaxone, and iv doxycycline but since patient asymptomatic with no coughing, negative cultures will discontinue antibiotics and follow clinical course Being followed by ID. 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 Will discuss further treatment plan with GI Acute hypoxic respiratory failure CT chest showed extensive bilateral peribronchial opacities , dense consolidative foci noted at the right base, finding suggest infectious etiology, bnp elevated in 151 Appears euvolemic procalcitonin levels 0.44 Will DC IV Lasix, dc iv abx follow clinical course /add IS Wean oxygen as tolerated Anemia/thrombocytopenia (unclear etiology)--cbc reviewed by Hematology- no abnormal cells to suggest acute hematological process such as leukemia. iron studies -iron low ,iron sats ,tibc-normal ,ferritin elevated , b12 and folate normal patient denies any gross bleeding or melena,peripheral smear negative for schistocytes, LDH elevated, FOBT negative haptoglobin pending Received 1 u prbc (09/06) , hematocrit improved and remained stable Case discussed with Dr. Vasquez, follow CBC Near syncope: unclear etiology possible orthostatic ,anxiety echo:left ventricular systolic function is normal, EF 70% no valvular pathology. head ct negative for acute intracranial abn Noted to have sinus tachycardia on tele monitor Chronic tension headaches-head ct negative for acute intracranial abn prn fioricet DM type 2 diabetes with hyperglycemia: Stable blood sugars,hgb a1c 6.9% on diabetic diet ,ISS , hold metformin HLD-statin hold due to elevated lft's. Chest pain- seems atypical, trops flat ,EKG without actue ischemic changes, negative PE by CTA. Tachycardia- fluctuating likely due to fever, anxiety, normal TSH continue tele monitor, continue beta-blockers, hydroxyzine for anxiety dvt prophylaxis- compression boots full code. Ongoing hospitalization need: Multifactorial active issue are elevated liver functions, worsening anemia and thrombocytopenia requiring transfusion, acute hypoxemic respiratory failure multifactorial: Need IV antibiotics and Lasix Quality Stroke Does the patient have a stroke diagnosis?: No VTE Prior VTE?: No VTE Risk Level:: Medical - moderate - high VTE Device Contraindication: Treatment Not Indicated VTE Drug Contraindication: N/A - Med Ordered
[2023-09-09 16:33] LABS: Glucose, Whole Blood 196 mg/dL (60-115)
[2023-09-09] MEDS: Butalb/Acetamin/Caff 50/325/40 TABLET 1 TAB PO (20:19)
[2023-09-09 20:56] LABS: Glucose, Whole Blood 123 mg/dL (60-115)
[2023-09-10] VITALS (8 sets, daily range): BP systolic 119–145; BP diastolic 56–69; PULSE 103–113; RESP 16–20; TEMP 35.8–37.1; O2SAT 92–94
--- NOTE | 2023-09-10 00:05 | W.PM.IDCN ---
History of Present Illness Data of Consult Service Date: 09/09/23 Requesting physician: Geovanni Naik Primary Care Provider: Li Whitehead MD HPI Reason for consult: fever of unknown origin She presents with chest pain for four days. Also,there was temperature 100-101. No one else was ill. She has slightly increased LFT and decreased platelet. Review of Systems Review of Systems: Yes all other systems are reviewed and are negative PMFSH Past Medical History Medical History Chest pain Type 2 diabetes mellitus with hyperglycemia, without long-term current use of insulin Irregular heart beat Kidney stone Hyperlipidemia Cancer of breast Family History Family History Mother Tuberculosis Brother Myocardial infarction, Onset Age: 55 Skin cancer Father Skin cancer Family history: reviewed and not pertinent Surgical History Surgical History H/O colonoscopy History of lumpectomy of left breast Hx of thumb surgery S/P JUSTIN (total abdominal hysterectomy) History of surgery on arm Social History Social History Household Members: Spouse Housing: House Do you presently have visiting nurse or other home services: No Alcohol intake: never Comment: pt compliant with calling for assistance Patient Tobacco Use Status: Never used Tobacco Tobacco use type: Cigarette Smoked in Last 30 Days: No e-Cigarette/Vaping Use: Never Used Second Hand Smoke Exposure: No Use of substances other than those prescribed or required for medical reasons: No Currently Displaying Signs/Symptoms of Drug Intoxication Withdrawal: No Have you been hit, kicked, punched, or otherwise hurt by someone within the past year? If so, by whom?: No Do you feel safe in your current relationship?: Yes Is there a partner from a previous relationship who is making you feel unsafe now?: No Are you made to feel afraid or neglected: No Advance Directives: No Advance Directives Information Provided: No Do you have a plan to hurt others: No Plan Recently lost weight without trying: Yes How much weight loss: Unsure Eating poorly because of decreased appetite: Yes Nutrition screen score: 5 Nutrition Risks: Poor intake 0-25% >4 days Patient : No : No Poor oral hygiene: No service: No Current occupational status: retired Cognitive needs: No Hearing needs: No Vision needs: Yes Meds Allergies Allergy/AdvReac Type Severity Reaction Status Date / Time sulfamethoxazole Allergy Intermediate HIVES Verified 08/31/23 01:50 [From Bactrim] trimethoprim [From Bactrim] Allergy Intermediate HIVES Verified 08/31/23 01:50 amoxicillin [Amoxicillin] Allergy Mild RASH Verified 08/31/23 01:50 Sulfa (Sulfonamide Allergy Unknown Hives Verified 08/31/23 01:50 Antibiotics) Active Medications: Current Medications Acetaminophen (Acetaminophen 325 Mg Tablet) 650 mg PO Q6H PRN PRN Reason: Fever >100.4 Last Admin: 09/08/23 22:31 Dose: 650 mg Acetaminophen/Butalbital/Caffeine (Butalb/Acetamin/Caff 50/325/40 Tablet) 1 tab PO Q8H PRN PRN Reason: Headache Last Admin: 09/09/23 20:19 Dose: 1 tab Benzocaine (Throat Lozenge, Medicated Lozenge) 1 lozenge MUCOUS MEM Q2H PRN PRN Reason: Sore Throat Last Admin: 09/02/23 10:52 Dose: 1 lozenge Docusate Sodium (Docusate Sodium 100 Mg Capsule) 100 mg PO BID JORGE Last Admin: 09/09/23 20:20 Dose: 100 mg Glucose (Glucose Gel 15 Gm Gel..Gram.) 15 gm PO Q15M PRN; Protocol PRN Reason: per Hypoglycemia Standing Ord. Hydroxyzine HCl (Hydroxyzine Hcl 10 Mg Tablet) 10 mg PO Q8H PRN PRN Reason: anxiety/restlessness Dextrose (D10) 250 mls @ 750 mls/hr IV Q15M PRN; Protocol PRN Reason: per Hypoglycemia Standing Ord. Insulin Human Lispro (Insulin Lispro 100 Unit/Ml 3 Ml Vial) 0 unit SUBCUT QIDACHS [facility]; Protocol Last Admin: 09/09/23 17:13 Dose: 2 unit Lidocaine (Lidocaine 4 % Patch Adh..Patch) 1 patch TRANSDERMA DAILY [facility]; Protocol Last Admin: 09/09/23 08:34 Dose: 1 patch Magnesium Hydroxide (Milk Of Magnesia 30 Ml Oral.Susp) 30 ml PO DAILY PRN PRN Reason: Constipation Last Admin: 09/02/23 19:01 Dose: 30 ml Metoprolol Succinate (Metoprolol Succinate Er 50 Mg Tab.Er.24h) 50 mg PO DAILY [facility]; Protocol Last Admin: 09/09/23 07:43 Dose: 50 mg Multivitamins/Vitamin C (Multivitamin Tablet) 1 tab PO DAILY [facility] Last Admin: 09/09/23 08:35 Dose: 1 tab Nitroglycerin (Nitroglycerin 0.4 Mg Tab.Subl) 0.4 mg SUBLINGUAL Q5MX3 PRN PRN Reason: Chest Pain Last Admin: 09/01/23 04:43 Dose: 0.4 mg Omeprazole (Omeprazole 20 Mg Capsule.Dr) 20 mg PO BID@0630,1630 [facility] Last Admin: 09/09/23 17:13 Dose: 20 mg Ondansetron HCl (Ondansetron Hcl 4 Mg/2 Ml Vial) 4 mg IVPUSH Q8H PRN PRN Reason: Nausea and Vomiting Last Admin: 09/01/23 04:49 Dose: 4 mg Polyethylene Glycol (Polyethylene Glycol 3350 17 Gm Powd.Pack) 17 gm PO DAILY [facility] Last Admin: 09/09/23 08:36 Dose: 17 gm Sodium Biphosphate/Sodium Phosphate (Sodium Phosphate,[place]-Dibasic 133 Ml Enema) 133 ml MA ONCE PRN PRN Reason: Once Last Admin: 09/04/23 12:14 Dose: 133 ml Sodium Chloride (0.9 % Sodium Chloride Flush 3 Ml Syringe) 3 ml IVFLUSH QSHIFT [facility] Last Admin: 09/09/23 15:40 Dose: 3 ml Tramadol HCl (Tramadol Hcl 50 Mg Tablet) 50 mg PO Q6H PRN PRN Reason: Pain, Severe (Pain Scale 7-10) Last Admin: 09/09/23 12:34 Dose: 50 mg Vitamin D (Cholecalciferol (Vitamin D3) 25 Mcg Tablet) 25 mcg PO DAILY [facility] Last Admin: 09/09/23 08:35 Dose: 25 mcg Home Medications ?Medication ?Instructions ?Recorded ?Confirmed ?Last Taken ?Type lovastatin 20 mg tablet 20 mg PO DAILY 01/13/23 08/31/23 08/30/23 History metoprolol succinate 50 mg 50 mg PO DAILY 08/19/23 08/31/23 08/30/23 History tablet,extended release 24 hr cholecalciferol (vitamin D3) 25 25 mcg PO DAILY 08/31/23 08/31/23 08/30/23 History mcg (1,000 unit) tablet (Vitamin D3) multivitamin 1 tab PO DAILY 08/31/23 08/31/23 08/30/23 History Physical Exam Vital Signs: Vital Signs: Last Vital Signs Temp 97.9 F 09/09/23 20:00 Pulse 118 H 09/09/23 20:00 Resp 16 09/09/23 20:00 BP 132/67 09/09/23 20:00 Pulse Ox 93 09/09/23 20:00 O2 Del Method Nasal Cannula 09/09/23 20:00 O2 Flow Rate 2 09/09/23 20:00 BMI result Body Mass Index 23.1 Const: General: cooperative HEENT: Head: Yes normal to inspection Face and sinus: Yes normal facial exam Mouth: Normal oral and palatal mucosa present Teeth and gingiva: dentition normal Eyes: General: appearance normal, both eyes and all related structures Pupils: Equal, round and reactive pupils present Resp: Effort & Inspection: normal respiratory effort Cardio: Rate: regular rate Rhythm: regular rhythm GI: Palpation (GI): Soft to palpation and nontender : General: Yes no CVA tenderness Back/Spine/Pelvis: Back: no CVA tenderness Skin: General skin exam: no rashes or lesions noted Neuro: General: moves all extremities Cranial nerves: Yes Equal, round and reactive pupils present Extrem: General: Yes normal to inspection Psych: Appearance: grossly normal Results Labs 09/09/23 Unknown 09/09/23 05:15 Labs: Short CBC 09/09/23 Range/Units Unknown WBC 4.8 (4.8-10.8) X10*3/uL Hgb 10.4 L (12.0-16.0) g/dl Hct 29.4 L (37.0-47.0) % Plt Count 54 L (160-400) X10*3/uL BMP 09/09/23 05:15 Sodium 136 Potassium 3.4 Chloride 97 Carbon Dioxide 23 BUN 29 H Creatinine 0.79 Calcium 10.4 H Liver Function 09/09/23 Range/Units 05:15 Total Bilirubin 4.4 H (0.0-1.0) mg/dL Direct Bilirubin 3.1 H (0.0-0.5) mg/dL AST 81 H (5-31) U/L ALT 82 H (0-31) U/L Alkaline Phosphatase 564 H (39-117) U/L Albumin 3.5 (3.5-5.0) g/dL Microbiology Microbiology Results: Microbiology 09/08/23 00:47 Blood - Venous Blood Culture - Preliminary No growth after 24 hours. 09/08/23 00:47 Blood - Venous Blood Culture - Preliminary No growth after 24 hours. 09/03/23 13:20 Blood - Venous Blood Culture - Final No growth after 5 days. 09/03/23 13:20 Blood - Venous Blood Culture - Final No growth after 5 days. 09/05/23 01:40 Urine clean catch Urine Culture - Final Corynebacterium species Assessment and Plan (1) Thrombocytopenia: Status: Acute (2) Abnormal LFTs: Status: Acute (3) Anemia: Status: Acute Plan There is concern over anaplasmosis Also possible autoimmune hepatitis Also possible viral syndrome Consider po Doxycycline 100 mg bid Await liver biopsy,GI eval
[2023-09-10] MEDS: traMADoL HCL 50 MG TABLET PO ×3 (03:40→20:11)
[2023-09-10 06:27] LABS: Hematocrit 27.1 % (37.0-47.0); Hemoglobin 9.6 g/dl (12.0-16.0); Mean Corpuscular HGB Conc 35.4 g/dl (31.0-35.0); Mean Corpuscular Hemoglobin 28.5 pg (27.0-33.0); Mean Corpuscular Volume 80.4 fL (80.0-98.0); Mean Platelet Volume 9.4 fL (9.4-12.3); Red Blood Count 3.37 X10*6/uL (4.20-5.50); Red Cell Distribution Width 15.8 % (11.0-16.0); White Blood Count 4.2 X10*3/uL (4.8-10.8)
[2023-09-10 06:28] LABS: Platelet Count 46 X10*3/uL (160-400)
[2023-09-10 06:29] LABS: NRBC Pct Auto 1.9 /100WBC (0.0-0.2)
[2023-09-10] MEDS: Omeprazole 20 MG CAPSULE.DR PO ×2 (06:31→17:10)
[2023-09-10 06:46] LABS: Alanine Aminotransferase 61 U/L (0-31); Albumin Level 3.1 g/dL (3.5-5.0); Alkaline Phosphatase 532 U/L (39-117); Anion Gap 15 (12-20); Aspartate Amino Transferase 61 U/L (5-31); Bilirubin Direct 3.3 mg/dL (0.0-0.5); Bilirubin Total 4.8 mg/dL (0.0-1.0); Blood Urea Nitrogen 32 mg/dL (9-16); Calcium 10.1 mg/dL (8.4-10.2); Carbon Dioxide 27 mmol/L (22-29); Chloride 96 mmol/L (96-108); Creatinine Clr Calc Pharmacy 69.3; Estimated Glomerular Filt Rate > 60; Glucose Random 111 mg/dL (60-115); Potassium 3.7 mmol/L (3.3-5.1); Sodium 134 mmol/L (135-145)
[2023-09-10 08:18] LABS: Glucose, Whole Blood 149 mg/dL (60-115)
[2023-09-10] MEDS: Multivitamin TABLET 1 TAB PO (08:45)
[2023-09-10] MEDS: Docusate Sodium 100 MG CAPSULE PO ×2 (08:45→20:12)
[2023-09-10] MEDS: Lidocaine 4 % Patch ADH..PATCH 1 PATCH TRANSDERMA (08:45)
[2023-09-10] MEDS: Cholecalciferol (Vitamin D3) 25 MCG TABLET PO (08:45)
[2023-09-10] MEDS: Metoprolol Succinate ER 50 MG TAB.ER.24H PO (08:45)
[2023-09-10] MEDS: 0.9 % Sodium Chloride Flush 3 ML SYRINGE IVFLUSH ×4 (08:45→20:14)
[2023-09-10] MEDS: polyethylene glycoL 3350 17 GM POWD.PACK PO (08:46)
--- NOTE | 2023-09-10 10:28 | MHC.CM.PN ---
Per ROUNDS discussion, Patient is not yet medically cleared for dc (see today's ID PN); Patient may benefit from a PT Eval to assist with disposition. CM will follow.
[2023-09-10 11:55] LABS: Glucose, Whole Blood 174 mg/dL (60-115)
[2023-09-10] MEDS: Insulin Lispro 100 UNIT/ML 3 ML VIAL SUBCUT (12:11)
--- NOTE | 2023-09-10 12:34 | P.PNGI_ITS ---
Subjective Subjective Date of Service: 09/10/23 Interval History: Feels OK but still tired, appetite is fair. Denies abdominal pain, N/V, diarrhea Critical Care Time (minutes): 0 Physical Exam 2 Vital Signs: Vital Signs: Last Vital Signs Temp 96.4 F L 09/10/23 11:56 Pulse 108 H 09/10/23 11:56 Resp 18 09/10/23 11:56 BP 141/62 H 09/10/23 11:56 Pulse Ox 93 09/10/23 11:56 O2 Del Method Nasal Cannula 09/10/23 11:56 O2 Flow Rate 2 09/10/23 11:56 BMI result Body Mass Index 23.1 Const: General: cooperative, healthy appearing, comfortable, no acute distress, well developed, alert and awake GI: Other: Abd-Soft, NT, nondistended, no mass, no guarding, no rebound Objective Data Labs 09/10/23 05:45 09/10/23 05:45 Labs: Laboratory Results - last 24 hr 09/07/23 09/09/23 09/09/23 05:40 16:29 20:43 WBC RBC Hgb Hct MCV MCH MCHC RDW Plt Count MPV Absolute Nucleated RBC Nucleated RBC % (auto) Sodium Potassium Chloride Carbon Dioxide Anion Gap BUN Creatinine Estim Creat Clear Calc Estimated GFR POC Glucose 196 H 123 H Random Glucose Calcium Total Bilirubin Direct Bilirubin AST ALT Alkaline Phosphatase Total Protein Albumin Cycl Citrul Peptide IgG <16 09/10/23 09/10/23 09/10/23 05:45 08:14 11:26 WBC 4.2 L RBC 3.37 L Hgb 9.6 L Hct 27.1 L MCV 80.4 MCH 28.5 MCHC 35.4 H RDW 15.8 Plt Count 46 L MPV 9.4 Absolute Nucleated RBC 0.080 H Nucleated RBC % (auto) 1.9 H Sodium 134 L Potassium 3.7 Chloride 96 Carbon Dioxide 27 Anion Gap 15 BUN 32 H Creatinine 0.67 Estim Creat Clear Calc 69.3 Estimated GFR > 60 POC Glucose 149 H 174 H Random Glucose 111 Calcium 10.1 Total Bilirubin 4.8 H Direct Bilirubin 3.3 H AST 61 H ALT 61 H Alkaline Phosphatase 532 H Total Protein 6.0 L Albumin 3.1 L Cycl Citrul Peptide IgG Microbiology Microbiology Results: Microbiology 09/08/23 00:47 Blood - Venous Blood Culture - Preliminary No growth after 48 hours. 09/08/23 00:47 Blood - Venous Blood Culture - Preliminary No growth after 48 hours. 09/03/23 13:20 Blood - Venous Blood Culture - Final No growth after 5 days. 09/03/23 13:20 Blood - Venous Blood Culture - Final No growth after 5 days. 09/05/23 01:40 Urine clean catch Urine Culture - Final Corynebacterium species Procedures Date of Service Date of Service: 09/10/23 Progress Note: A&P Assessment and plan (1) Abnormal LFTs: Status: Acute (2) Drug induced liver disease: Status: Acute Assessment and Plan: Imp: Clinically improving. Her autoimmune studies are all negative thus far and her liver bx is c/w a drug-induced hepatitis as per pathology. The AST/ALT continue to improve. The Alk phos has improved as well, although has now plateaued. The TBili has risen slightly. The PT/INR has remained normal as of 09/07. Overall, this seems c/w a drug-induced liver injury from her statin or metformin that is slowly resolving, although the cholestatic portion of the liver injury is persisting. Rec: Observe and hold off on any meds such as steroids. F/U labs in AM. If things are stable and she is up to it then I think she could be discharged tomorrow from my standpoint, with repeat liver profile by 09/15/23. D/W patient and Dr. Ocasio. Thanks Time Spent With Patient Time: Total time managing care of this patient today ____ minutes. Quality Stroke Does the patient have a stroke diagnosis?: No VTE Prior VTE?: No VTE Risk Level:: Medical - moderate - high VTE Device Contraindication: Treatment Not Indicated VTE Drug Contraindication: N/A - Med Ordered
--- NOTE | 2023-09-10 12:53 | P.PNIM_ITS ---
Subjective Subjective Date of Service: 09/10/23 Interval History: Feeling better this morning, less anxious, denies chest pain or palpitation wishes to take a shower, no acute events overnight tele monitor shows heart rate around 110 or less . No high-grade fevers. Review of Systems All other system reviewed and are negative. Physical Exam 2 Vital Signs: Vital Signs: Last Vital Signs Temp 96.4 F L 09/10/23 11:56 Pulse 108 H 09/10/23 11:56 Resp 18 09/10/23 11:56 BP 141/62 H 09/10/23 11:56 Pulse Ox 93 09/10/23 11:56 O2 Del Method Nasal Cannula 09/10/23 11:56 O2 Flow Rate 2 09/10/23 11:56 BMI result Body Mass Index 23.1 Const: Other: General awake alert x3 no acute distress, less anxious Neck supple no JVD. CVS regular rate rhythm, tachycardic Respiratory lungs clear to auscultation, no respiratory distress, no wheeze, no rhonchi. Gastrointestinal abdomen soft, non tender, bowel sounds audible, no guarding , no rigidity. Extremities no edema. Neuro non focal Skin no rash Right shoulder limited range of motion due to pain Objective Data Active Medications Acetaminophen (Acetaminophen 325 Mg Tablet) 650 mg PO Q6H PRN PRN Reason: Fever >100.4 Last Admin: 09/08/23 22:31 Dose: 650 mg Documented By: ALEC Acetaminophen/Butalbital/Caffeine (Butalb/Acetamin/Caff 50/325/40 Tablet) 1 tab PO Q8H PRN PRN Reason: Headache Last Admin: 09/09/23 20:19 Dose: 1 tab Documented By: ALEC Benzocaine (Throat Lozenge, Medicated Lozenge) 1 lozenge MUCOUS MEM Q2H PRN PRN Reason: Sore Throat Last Admin: 09/02/23 10:52 Dose: 1 lozenge Documented By: FRANKY Docusate Sodium (Docusate Sodium 100 Mg Capsule) 100 mg PO BID JORGE Last Admin: 09/10/23 08:45 Dose: 100 mg Documented By: FRANKY Glucose (Glucose Gel 15 Gm Gel..Gram.) 15 gm PO Q15M PRN; Protocol PRN Reason: per Hypoglycemia Standing Ord. Hydroxyzine HCl (Hydroxyzine Hcl 10 Mg Tablet) 10 mg PO Q8H PRN PRN Reason: anxiety/restlessness Dextrose (D10) 250 mls @ 750 mls/hr IV Q15M PRN; Protocol PRN Reason: per Hypoglycemia Standing Ord. Insulin Human Lispro (Insulin Lispro 100 Unit/Ml 3 Ml Vial) 0 unit SUBCUT QIDACHS [facility]; Protocol Last Admin: 09/10/23 12:11 Dose: 2 unit Documented By: FRANKY Lidocaine (Lidocaine 4 % Patch Adh..Patch) 1 patch TRANSDERMA DAILY [facility]; Protocol Last Admin: 09/10/23 08:45 Dose: 1 patch Documented By: FRANKY Magnesium Hydroxide (Milk Of Magnesia 30 Ml Oral.Susp) 30 ml PO DAILY PRN PRN Reason: Constipation Last Admin: 09/02/23 19:01 Dose: 30 ml Documented By: FRANKY Metoprolol Succinate (Metoprolol Succinate Er 50 Mg Tab.Er.24h) 50 mg PO DAILY [facility]; Protocol Last Admin: 09/10/23 08:45 Dose: 50 mg Documented By: FRANKY Multivitamins/Vitamin C (Multivitamin Tablet) 1 tab PO DAILY [facility] Last Admin: 09/10/23 08:45 Dose: 1 tab Documented By: FRANKY Nitroglycerin (Nitroglycerin 0.4 Mg Tab.Subl) 0.4 mg SUBLINGUAL Q5MX3 PRN PRN Reason: Chest Pain Last Admin: 09/01/23 04:43 Dose: 0.4 mg Documented By: ANITHA Omeprazole (Omeprazole 20 Mg Capsule.) 20 mg PO BID@0630,1630 [facility] Last Admin: 09/10/23 06:31 Dose: 20 mg Documented By: ALEC Ondansetron HCl (Ondansetron Hcl 4 Mg/2 Ml Vial) 4 mg IVPUSH Q8H PRN PRN Reason: Nausea and Vomiting Last Admin: 09/01/23 04:49 Dose: 4 mg Documented By: ANITHA Polyethylene Glycol (Polyethylene Glycol 3350 17 Gm Powd.Pack) 17 gm PO DAILY [facility] Last Admin: 09/10/23 08:46 Dose: 17 gm Documented By: FRANKY Sodium Biphosphate/Sodium Phosphate (Sodium Phosphate,[place]-Dibasic 133 Ml Enema) 133 ml [place] ONCE PRN PRN Reason: Once Last Admin: 09/04/23 12:14 Dose: 133 ml Documented By: QIRA Sodium Chloride (0.9 % Sodium Chloride Flush 3 Ml Syringe) 3 ml IVFLUSH QSHIFT [facility] Last Admin: 09/10/23 08:45 Dose: 3 ml Documented By: FRANKY Tramadol HCl (Tramadol Hcl 50 Mg Tablet) 50 mg PO Q6H PRN PRN Reason: Pain, Severe (Pain Scale 7-10) Last Admin: 09/10/23 12:35 Dose: 50 mg Documented By: FRANKY Vitamin D (Cholecalciferol (Vitamin D3) 25 Mcg Tablet) 25 mcg PO DAILY [facility] Last Admin: 09/10/23 08:45 Dose: 25 mcg Documented By: FRANKY Labs 09/10/23 05:45 09/10/23 05:45 Labs: Laboratory Results - last 24 hr 09/07/23 09/09/23 09/09/23 05:40 16:29 20:43 MCV MCH MCHC RDW Plt Count MPV Absolute Nucleated RBC Nucleated RBC % (auto) Anion Gap Estim Creat Clear Calc Estimated GFR POC Glucose 196 H 123 H Random Glucose Calcium Total Bilirubin Direct Bilirubin AST ALT Alkaline Phosphatase Total Protein Albumin Cycl Citrul Peptide IgG <16 09/10/23 09/10/23 09/10/23 05:45 08:14 11:26 MCV 80.4 MCH 28.5 MCHC 35.4 H RDW 15.8 Plt Count 46 L MPV 9.4 Absolute Nucleated RBC 0.080 H Nucleated RBC % (auto) 1.9 H Anion Gap 15 Estim Creat Clear Calc 69.3 Estimated GFR > 60 POC Glucose 149 H 174 H Random Glucose 111 Calcium 10.1 Total Bilirubin 4.8 H Direct Bilirubin 3.3 H AST 61 H ALT 61 H Alkaline Phosphatase 532 H Total Protein 6.0 L Albumin 3.1 L Cycl Citrul Peptide IgG Microbiology Microbiology Results: Microbiology 09/08/23 00:47 Blood Culture - Preliminary Blood - Venous No growth after 48 hours. 09/08/23 00:47 Blood Culture - Preliminary Blood - Venous No growth after 48 hours. Assessment and Plan (1) Thrombocytopenia: Status: Acute (2) Abnormal LFTs: Status: Acute Plan 73 year old female with history of type 2 diabetes, hld, hx breast cancer 1990s to be observed for chest pain Sepsis sec to pneumonia vs UTI, question due to liver process,vs tick-borne illness No recurrent fevers, less tachycardic,low platelets likely due to suspected liver disease, no severe sepsis. lactic acid -normal,blood culture negative times 48 hours, urine culture grew Corynebacterium species likely contaminant procalcitonin levels 0.44 patient asymptomatic with no coughing, negative cultures , no antibiotics since September 08 Elevated LFTs Clinically improved less tachycardia no fevers Total bili continue to rise,enzymes trending down, negative imaging studies ct abd /pelvis with contrast-liver/pancreas unremarkable mri abdomen- neg for liver /pancreatic dis, hepatitic, hiv screen neg d/w rheumatology-Ccp antibody negative,Sjogren antibodies negative,Dsdna negative,immunofixation,Beta 2 glycoprotein antibodies,Lupus anticoagulant,HLA b27,HLA B51 pending adali screen negative,peripheral smear negative for schistocytes liver biopsy likely drug-induced hepatitis, only recent new drug is metformin currently on hold Will avoid all hepatotoxic medications including statin. Case discussed with Dr. Gould he recommend to follow LFTs and if they continue to trend down patient can be discharged with close outpatient follow-up of liver enzymes Encourage out of bed and ambulation Acute hypoxic respiratory failure CT chest showed extensive bilateral peribronchial opacities , dense consolidative foci noted at the right base, finding suggest infectious etiology, bnp elevated in 151 Appears euvolemic procalcitonin levels 0.44 follow clinical course /add IS Wean oxygen as tolerated Anemia/thrombocytopenia (unclear etiology)--cbc reviewed by Hematology- no abnormal cells to suggest acute hematological process such as leukemia. iron studies -iron low ,iron sats ,tibc-normal ,ferritin elevated , b12 and folate normal patient denies any gross bleeding or melena,peripheral smear negative for schistocytes, LDH elevated, FOBT negative haptoglobin pending Received 1 u prbc (09/06) , hematocrit improved and remained stable Case discussed with Dr. Vasquez, follow CBC Near syncope: unclear etiology possible orthostatic ,anxiety, sinus tachycardia echo:left ventricular systolic function is normal, EF 70% no valvular pathology. head ct negative for acute intracranial abn Noted to have sinus tachycardia on tele monitor gradually improving continue beta-blockers Chronic tension headaches-head ct negative for acute intracranial abn prn fioricet DM type 2 diabetes with hyperglycemia: Stable blood sugars,hgb a1c 6.9% on diabetic diet ,ISS , hold metformin HLD-statin hold due to elevated lft's. Chest pain- seems atypical, trops flat ,EKG without actue ischemic changes, negative PE by CTA. Tachycardia- improving,was no known why spend so much time with Silke I was with to remind likely due to fever, anxiety, normal TSH continue tele monitor, continue beta-blockers, hydroxyzine for anxiety dvt prophylaxis- compression boots full code. Ongoing hospitalization need: Multifactorial active issue are elevated liver functions, worsening anemia and thrombocytopenia requiring transfusion, acute hypoxemic respiratory failure multifactorial: Need IV antibiotics and Lasix Quality Stroke Does the patient have a stroke diagnosis?: No VTE Prior VTE?: No VTE Risk Level:: Medical - moderate - high VTE Device Contraindication: Treatment Not Indicated VTE Drug Contraindication: N/A - Med Ordered
[2023-09-10 14:08] LABS: Smooth Muscle Antibody <20 U (<20)
--- NOTE | 2023-09-10 15:27 | PC.NURSE ---
Pt's daughter reported that pt was active smoker till this admission , pt stated that she was in the process of quitting and she was smoking 2-3 cigarets per day lately. One more info pt's daughter would like to add that pt had steroid injection to right shoulder on July and started Metformin on 08/25/2023
[2023-09-10 16:38] LABS: HLA B27 Negative (Negative)
[2023-09-10 16:56] LABS: Glucose, Whole Blood 144 mg/dL (60-115)
[2023-09-10 18:09] LABS: A. Phagocytphilium DNA,RT-PCR NOT DETECTED (NOT DETECTED); Babesia Microti DNA, RT-PCR NOT DETECTED (NOT DETECTED); Borrelia Miyamotoi,DNA RT-PCR NOT DETECTED (NOT DETECTED); E.Chaffeensis DNA RT-PCR NOT DETECTED (NOT DETECTED); Lyme(Borrelia ssp)DNA RT-PCR NOT DETECTED (NOT DETECTED)
[2023-09-10] MEDS: Doxycycline Monohydrate 100 MG CAPSULE PO (20:11)
[2023-09-10 20:46] LABS: Glucose, Whole Blood 141 mg/dL (60-115)
[2023-09-10] MEDS: ondansetron HCL 4 MG/2 ML VIAL IVPUSH (22:26)
[2023-09-11] VITALS (11 sets, daily range): BP systolic 106–170; BP diastolic 56–66; PULSE 88–113; RESP 16–20; TEMP 36.1–37.4; O2SAT 92–100
[2023-09-11] MEDS: Acetaminophen 325 MG TABLET 650 MG PO (02:45)
[2023-09-11] MEDS: Omeprazole 20 MG CAPSULE.DR PO ×2 (05:53→16:42)
[2023-09-11 06:37] LABS: Hematocrit 25.7 % (37.0-47.0); Hemoglobin 8.8 g/dl (12.0-16.0); Mean Corpuscular HGB Conc 34.2 g/dl (31.0-35.0); Mean Corpuscular Hemoglobin 27.9 pg (27.0-33.0); Mean Corpuscular Volume 81.6 fL (80.0-98.0); Mean Platelet Volume 9.1 fL (9.4-12.3); Red Blood Count 3.15 X10*6/uL (4.20-5.50); Red Cell Distribution Width 15.9 % (11.0-16.0); White Blood Count 3.1 X10*3/uL (4.8-10.8)
[2023-09-11 06:38] LABS: Platelet Count 32 X10*3/uL (160-400)
[2023-09-11 06:56] LABS: INTERNATIONAL NORM RATIO 1.2 (0.9-1.1); Prothrombin Time 14.2 SEC (11.1-13.3)
[2023-09-11 06:59] LABS: Alanine Aminotransferase 56 U/L (0-31); Albumin Level 2.8 g/dL (3.5-5.0); Alkaline Phosphatase 645 U/L (39-117); Anion Gap 15 (12-20); Aspartate Amino Transferase 64 U/L (5-31); Bilirubin Direct 4.2 mg/dL (0.0-0.5); Bilirubin Total 5.5 mg/dL (0.0-1.0); Blood Urea Nitrogen 33 mg/dL (9-16); Carbon Dioxide 29 mmol/L (22-29); Chloride 96 mmol/L (96-108); Creatinine Clr Calc Pharmacy 64.4; Estimated Glomerular Filt Rate > 60; Glucose Random 110 mg/dL (60-115); Potassium 3.5 mmol/L (3.3-5.1); Sodium 136 mmol/L (135-145); Total Protein 5.5 g/dL (6.5-8.0)
[2023-09-11 07:06] LABS: Atypical Lymph Absolute Manual 0.1 x10*3/uL; Atypical Lymphs Percent Manual 2 % (0-6); Band Neutrophils Percent 20 % (3-5); Lymphocytes Absolute Manual 0.3 X10*3/uL (1.2-4.9); Lymphocytes Percent Manual 10 % (20-40); Metamyelocytes Absolute 0.1 X10*3/uL; Metamyelocytes Percent 3 %; Monocytes Absolute Manual 0.2 X10*3/uL (0.1-1.2); Monocytes Percent Manual 5 % (2-11); Neutrophils Absolute Manual 2.5 X10*3/uL (2.0-8.3); Neutrophils Percent Manual 60 % (45-73); Nucleated Red Blood Cells 6 /100WBC (0-0)
[2023-09-11 07:08] LABS: RBC Morphology NOTED
[2023-09-11 07:09] LABS: Acanthocytes 1+ (0-2) /OIF; Hypochromasia 1+ (5-14) /OIF; Platelet Estimate DECREASED (NORMAL); Platelet Morphology Comment NORMAL
[2023-09-11 07:51] LABS: Glucose, Whole Blood 164 mg/dL (60-115)
[2023-09-11] MEDS: polyethylene glycoL 3350 17 GM POWD.PACK PO (08:21)
[2023-09-11] MEDS: Lidocaine 4 % Patch ADH..PATCH 1 PATCH TRANSDERMA (08:22)
[2023-09-11] MEDS: Metoprolol Succinate ER 50 MG TAB.ER.24H PO (08:22)
[2023-09-11] MEDS: Cholecalciferol (Vitamin D3) 25 MCG TABLET PO (08:22)
[2023-09-11] MEDS: Insulin Lispro 100 UNIT/ML 3 ML VIAL SUBCUT ×3 (08:22→20:32)
[2023-09-11] MEDS: Docusate Sodium 100 MG CAPSULE PO (08:22)
[2023-09-11] MEDS: Multivitamin TABLET 1 TAB PO (08:22)
[2023-09-11] MEDS: 0.9 % Sodium Chloride Flush 3 ML SYRINGE IVFLUSH ×2 (08:23→16:42)
[2023-09-11 11:21] LABS: Glucose, Whole Blood 163 mg/dL (60-115)
--- NOTE | 2023-09-11 15:59 | P.PNIM_ITS ---
Subjective Subjective Date of Service: 09/11/23 Interval History: Being followed for elevated LFTs likely drug-induced hepatitis. Offers no acute complaints appetite is slightly better denies abdominal pain, no nausea, no vomiting, no constipation or diarrhea, no fevers, no chills. Feels tired. No shortness of breath, on oxygen with stable finger oximetry Review of Systems All other system reviewed and negative Physical Exam 2 Vital Signs: Vital Signs: Last Vital Signs Temp 96.9 F 09/11/23 12:00 Pulse 88 09/11/23 12:00 Resp 20 09/11/23 12:00 BP 131/63 09/11/23 12:00 Pulse Ox 100 09/11/23 12:00 O2 Del Method Nasal Cannula 09/11/23 12:00 O2 Flow Rate 3.5 09/11/23 12:00 BMI result Body Mass Index 23.1 Const: Other: General awake alert x3 no acute distress, mildly anxious Sclera icteric Neck supple no JVD. CVS regular rate rhythm, tachycardic Respiratory lungs clear to auscultation, no respiratory distress, no wheeze, no rhonchi. Gastrointestinal abdomen soft, non tender, bowel sounds audible, no guarding , no rigidity. Extremities no edema. Neuro non focal Skin jaundiced Right shoulder limited range of motion due to pain Objective Data Active Medications Acetaminophen (Acetaminophen 325 Mg Tablet) 650 mg PO Q6H PRN PRN Reason: Fever >100.4 Last Admin: 09/11/23 02:45 Dose: 650 mg Documented By: JACKI Acetaminophen/Butalbital/Caffeine (Butalb/Acetamin/Caff 50/325/40 Tablet) 1 tab PO Q8H PRN PRN Reason: Headache Last Admin: 09/09/23 20:19 Dose: 1 tab Documented By: ALEC Benzocaine (Throat Lozenge, Medicated Lozenge) 1 lozenge MUCOUS MEM Q2H PRN PRN Reason: Sore Throat Last Admin: 09/02/23 10:52 Dose: 1 lozenge Documented By: FRANKY Docusate Sodium (Docusate Sodium 100 Mg Capsule) 100 mg PO BID JORGE Last Admin: 09/11/23 08:22 Dose: 100 mg Documented By: ELLI Glucose (Glucose Gel 15 Gm Gel..Gram.) 15 gm PO Q15M PRN; Protocol PRN Reason: per Hypoglycemia Standing Ord. Hydroxyzine HCl (Hydroxyzine Hcl 10 Mg Tablet) 10 mg PO Q8H PRN PRN Reason: anxiety/restlessness Dextrose (D10) 250 mls @ 750 mls/hr IV Q15M PRN; Protocol PRN Reason: per Hypoglycemia Standing Ord. Insulin Human Lispro (Insulin Lispro 100 Unit/Ml 3 Ml Vial) 0 unit SUBCUT QIDACHS [facility]; Protocol Last Admin: 09/11/23 12:27 Dose: 2 unit Documented By: ELLI Lidocaine (Lidocaine 4 % Patch Adh..Patch) 1 patch TRANSDERMA DAILY [facility]; Protocol Last Admin: 09/11/23 08:22 Dose: 1 patch Documented By: ELLI Magnesium Hydroxide (Milk Of Magnesia 30 Ml Oral.Susp) 30 ml PO DAILY PRN PRN Reason: Constipation Last Admin: 09/02/23 19:01 Dose: 30 ml Documented By: FRANKY Metoprolol Succinate (Metoprolol Succinate Er 50 Mg Tab.Er.24h) 50 mg PO DAILY [facility]; Protocol Last Admin: 09/11/23 08:22 Dose: 50 mg Documented By: ELLI Multivitamins/Vitamin C (Multivitamin Tablet) 1 tab PO DAILY [facility] Last Admin: 09/11/23 08:22 Dose: 1 tab Documented By: ELLI Nitroglycerin (Nitroglycerin 0.4 Mg Tab.Subl) 0.4 mg SUBLINGUAL Q5MX3 PRN PRN Reason: Chest Pain Last Admin: 09/01/23 04:43 Dose: 0.4 mg Documented By: ANITHA Omeprazole (Omeprazole 20 Mg Capsule.Dr) 20 mg PO BID@0630,1630 [facility] Last Admin: 09/11/23 05:53 Dose: 20 mg Documented By: JACKI Ondansetron HCl (Ondansetron Hcl 4 Mg/2 Ml Vial) 4 mg IVPUSH Q8H PRN PRN Reason: Nausea and Vomiting Last Admin: 09/10/23 22:26 Dose: 4 mg Documented By: JACKI Polyethylene Glycol (Polyethylene Glycol 3350 17 Gm Powd.Pack) 17 gm PO DAILY [facility] Last Admin: 09/11/23 08:21 Dose: 17 gm Documented By: ELLI Sodium Biphosphate/Sodium Phosphate (Sodium Phosphate,[place]-Dibasic 133 Ml Enema) [address] ONCE PRN PRN Reason: Once Last Admin: 09/04/23 12:14 Dose: 133 ml Documented By: IQRA Sodium Chloride (0.9 % Sodium Chloride Flush 3 Ml Syringe) 3 ml IVFLUSH QSHIFT [facility] Last Admin: 09/11/23 08:23 Dose: 3 ml Documented By: ELLI Tramadol HCl (Tramadol Hcl 50 Mg Tablet) 50 mg PO Q6H PRN PRN Reason: Pain, Severe (Pain Scale 7-10) Last Admin: 09/10/23 20:11 Dose: 50 mg Documented By: JACKI Vitamin D (Cholecalciferol (Vitamin D3) 25 Mcg Tablet) 25 mcg PO DAILY [facility] Last Admin: 09/11/23 08:22 Dose: 25 mcg Documented By: ELLI Labs 09/11/23 05:51 09/11/23 05:51 Labs: Laboratory Results - last 24 hr 09/07/23 09/08/23 09/08/23 05:41 19:12 20:25 MCV MCH MCHC RDW Plt Count MPV Immature Gran % (Auto) Neut % (Auto) Lymph % (Auto) [place] % (Auto) Eos % (Auto) Baso % (Auto) Lymph # (Auto) [place] # (Auto) Eos # (Auto) Baso # (Auto) Abs Immat Gran (auto) Absolute Neuts (auto) Absolute Nucleated RBC Nucleated RBC % (auto) Neutrophils % (Manual) Band Neutrophils % Lymphocytes % (Manual) Atypical Lymphs % (Man) Monocytes % (Manual) Metamyelocytes % Abs Neuts (Manual) Lymphocytes # (Manual) Atyp Lymphs # (Manual) Monocytes # (Manual) Metamyelocytes # Nucleated RBCs Platelet Estimate Plt Morphology Comment RBC Morphology Hypochromasia Acanthocytes (Spur) Smear Path Review SEE NOTE PT INR Anion Gap Estim Creat Clear Calc Estimated GFR POC Glucose Random Glucose Calcium Total Bilirubin Direct Bilirubin AST ALT Alkaline Phosphatase Total Protein Albumin HLA-B27 Negative A.phagocytophil DNA PCR NOT DETECTED Babesia microti DNA PCR NOT DETECTED Borrelia sp DNA (PCR) NOT DETECTED Borrelia miyamotoi (PCR) NOT DETECTED E.chaffeensis DNA (PCR) NOT DETECTED Tick-borne Disease PCR SEE NOTE 09/10/23 09/10/23 09/11/23 16:49 20:35 05:51 MCV 81.6 MCH 27.9 MCHC 34.2 RDW 15.9 Plt Count 32 L D MPV 9.1 L Immature Gran % (Auto) Cancelled Neut % (Auto) Cancelled Lymph % (Auto) Cancelled [place] % (Auto) Cancelled Eos % (Auto) Cancelled Baso % (Auto) Cancelled Lymph # (Auto) Cancelled [place] # (Auto) Cancelled Eos # (Auto) Cancelled Baso # (Auto) Cancelled Abs Immat Gran (auto) Cancelled Absolute Neuts (auto) Cancelled Absolute Nucleated RBC 0.060 H Nucleated RBC % (auto) 2.0 H Neutrophils % (Manual) 60 Band Neutrophils % 20 H Lymphocytes % (Manual) 10 L Atypical Lymphs % (Man) 2 Monocytes % (Manual) 5 Metamyelocytes % 3 Abs Neuts (Manual) 2.5 Lymphocytes # (Manual) 0.3 L Atyp Lymphs # (Manual) 0.1 Monocytes # (Manual) 0.2 Metamyelocytes # 0.1 Nucleated RBCs 6 H Platelet Estimate DECREASED Plt Morphology Comment NORMAL RBC Morphology NOTED Hypochromasia 1+ (5-14) Acanthocytes (Spur) 1+ (0-2) Smear Path Review PT 14.2 H INR 1.2 H Anion Gap 15 Estim Creat Clear Calc 64.4 Estimated GFR > 60 POC Glucose 144 H 141 H Random Glucose 110 Calcium 10.0 Total Bilirubin 5.5 H Direct Bilirubin 4.2 H AST 64 H ALT 56 H Alkaline Phosphatase 645 H Total Protein 5.5 L Albumin 2.8 L HLA-B27 A.phagocytophil DNA PCR Babesia microti DNA PCR Borrelia sp DNA (PCR) Borrelia miyamotoi (PCR) E.chaffeensis DNA (PCR) Tick-borne Disease PCR 09/11/23 09/11/23 07:45 11:08 MCV MCH MCHC RDW Plt Count MPV Immature Gran % (Auto) Neut % (Auto) Lymph % (Auto) [place] % (Auto) Eos % (Auto) Baso % (Auto) Lymph # (Auto) [place] # (Auto) Eos # (Auto) Baso # (Auto) Abs Immat Gran (auto) Absolute Neuts (auto) Absolute Nucleated RBC Nucleated RBC % (auto) Neutrophils % (Manual) Band Neutrophils % Lymphocytes % (Manual) Atypical Lymphs % (Man) Monocytes % (Manual) Metamyelocytes % Abs Neuts (Manual) Lymphocytes # (Manual) Atyp Lymphs # (Manual) Monocytes # (Manual) Metamyelocytes # Nucleated RBCs Platelet Estimate Plt Morphology Comment RBC Morphology Hypochromasia Acanthocytes (Spur) Smear Path Review PT INR Anion Gap Estim Creat Clear Calc Estimated GFR POC Glucose 164 H 163 H Random Glucose Calcium Total Bilirubin Direct Bilirubin AST ALT Alkaline Phosphatase Total Protein Albumin HLA-B27 A.phagocytophil DNA PCR Babesia microti DNA PCR Borrelia sp DNA (PCR) Borrelia miyamotoi (PCR) E.chaffeensis DNA (PCR) Tick-borne Disease PCR Assessment and Plan (1) Thrombocytopenia: Status: Acute (2) Abnormal LFTs: Status: Acute Plan 73 year old female with history of type 2 diabetes, hld, hx breast cancer to be observed for chest pain Sepsis sec to pneumonia vs UTI, question due to liver process,vs tick-borne illness No recurrent fevers, less tachycardic,low platelets likely due to suspected liver disease, no severe sepsis. lactic acid -normal,blood culture negative times 48 hours, urine culture grew Corynebacterium species likely contaminant procalcitonin levels 0.44 patient asymptomatic with no coughing, negative cultures , no antibiotics since September 08, received 1 dose of doxycycline September 09 due to concern for anaplasmosis but however tick panel is negative Elevated LFTs Clinically improved less tachycardia no fevers Total bili continue to rise, AST/ALT improved ct abd /pelvis with contrast-liver/pancreas unremarkable mri abdomen- neg for liver /pancreatic dis, hepatitic, hiv screen neg Negative rheumatologic workup adali screen negative,peripheral smear negative for schistocytes liver biopsy likely drug-induced hepatitis, only recent new drug is metformin currently on hold Case discussed with Dr. Gould overall it seems symptoms likely due to drug- induced liver injury from metformin that is slowly resolving, but persistent cholestasis follow LFTs and if they trend down patient can be discharged with close outpatient follow-up of liver enzymes Encourage out of bed and ambulation Acute hypoxic respiratory failure CT chest showed extensive bilateral peribronchial opacities , dense consolidative foci noted at the right base, bnp elevated in 151 Appears euvolemic procalcitonin levels 0.44 follow clinical course /add IS Wean oxygen as tolerated, not on home O2 Anemia/thrombocytopenia (unclear etiology)--cbc reviewed by Hematology- no abnormal cells to suggest acute hematological process such as leukemia. Received 1 u prbc (09/06) , hematocrit improved and remained stable Case discussed with Dr. Vasquez, she feels anemia and thrombocytopenia probably manifestation of liver disease no evidence of DIC or myelophthisic process follow CBC transfuse platelets and blood as needed Near syncope: unclear etiology possible orthostatic ,anxiety, sinus tachycardia echo:left ventricular systolic function is normal, EF 70% no valvular pathology. head ct negative for acute intracranial abn Noted to have sinus tachycardia on tele monitor gradually improving continue beta-blockers Chronic tension headaches-head ct negative for acute intracranial abn prn fioricet DM type 2 diabetes with hyperglycemia: Stable blood sugars,hgb a1c 6.9% on diabetic diet ,ISS , DC metformin due to concern for drug-induced hepatitis HLD-statin hold due to elevated lft's. Chest pain- seems atypical, trops flat ,EKG without actue ischemic changes, negative PE by CTA. Tachycardia- improving,was likely due to fever, anxiety, normal TSH continue tele monitor, continue beta-blockers, hydroxyzine for anxiety dvt prophylaxis- compression boots full code. Ongoing hospitalization need: Multifactorial active issue are elevated liver functions, worsening anemia and thrombocytopenia requiring prn transfusion, acute hypoxemic respiratory failure, need close clinical follow-up that can not be provided in less acute setting. Quality Stroke Does the patient have a stroke diagnosis?: No VTE Prior VTE?: No VTE Risk Level:: Medical - moderate - high VTE Device Contraindication: Treatment Not Indicated VTE Drug Contraindication: N/A - Med Ordered
[2023-09-11 17:04] LABS: Glucose, Whole Blood 135 mg/dL (60-115)
[2023-09-11 20:12] LABS: Glucose, Whole Blood 179 mg/dL (60-115)
[2023-09-11] MEDS: traMADoL HCL 50 MG TABLET PO (20:32)
[2023-09-11 22:07] LABS: Angiotensin Converting Enzyme 25 U/L (9-67)
[2023-09-12 04:00] VITALS: BP 132/62; PULSE 102; RESP 16; TEMP 36; O2SAT 96
[2023-09-12] MEDS: traMADoL HCL 50 MG TABLET PO (05:07)
[2023-09-12] MEDS: Omeprazole 20 MG CAPSULE.DR PO ×2 (05:07→17:01)
[2023-09-12 07:02] LABS: Hematocrit 25.4 % (37.0-47.0); Hemoglobin 8.8 g/dl (12.0-16.0); Mean Corpuscular HGB Conc 34.6 g/dl (31.0-35.0); Mean Corpuscular Hemoglobin 28.2 pg (27.0-33.0); Mean Corpuscular Volume 81.4 fL (80.0-98.0); Mean Platelet Volume 9.5 fL (9.4-12.3); Red Blood Count 3.12 X10*6/uL (4.20-5.50); Red Cell Distribution Width 15.9 % (11.0-16.0); White Blood Count 2.7 X10*3/uL (4.8-10.8)
[2023-09-12 07:12] LABS: Platelet Count 30 X10*3/uL (160-400)
[2023-09-12 07:16] LABS: Alanine Aminotransferase 64 U/L (0-31); Albumin Level 2.7 g/dL (3.5-5.0); Alkaline Phosphatase 767 U/L (39-117); Aspartate Amino Transferase 77 U/L (5-31); Bilirubin Direct 5.7 mg/dL (0.0-0.5); Total Protein 5.3 g/dL (6.5-8.0)
[2023-09-12 07:25] LABS: Bilirubin Total 7.6 mg/dL (0.0-1.0)
[2023-09-12 07:43] VITALS: BP 140/64; PULSE 96; RESP 19; TEMP 36.6; O2SAT 95
[2023-09-12 07:56] LABS: Atypical Lymphs Percent Manual 1 % (0-6); Band Neutrophils Percent 12 % (3-5); Lymphocytes Absolute Manual 0.5 X10*3/uL (1.2-4.9); Lymphocytes Percent Manual 17 % (20-40); Metamyelocytes Percent 1 %; Monocytes Absolute Manual 0.1 X10*3/uL (0.1-1.2); Monocytes Percent Manual 3 % (2-11); Neutrophils Absolute Manual 2.1 X10*3/uL (2.0-8.3); Neutrophils Percent Manual 66 % (45-73)
[2023-09-12 07:57] LABS: Hypochromasia 1+ (5-14) /OIF; Microcytosis 1+ (5-14) /OIF; RBC Morphology NOTED
[2023-09-12 08:04] LABS: Platelet Estimate DECREASED (NORMAL); Polychromasia 1+ (0-2) /OIF
[2023-09-12 08:05] LABS: Nucleated Red Blood Cells 2 /100WBC (0-0); Platelet Morphology Comment NORMAL; Toxic Vacuolation PRESENT
[2023-09-12 08:05] LABS: Glucose, Whole Blood 97 mg/dL (60-115)
[2023-09-12] MEDS: Lidocaine 4 % Patch ADH..PATCH 1 PATCH TRANSDERMA (08:28)
[2023-09-12] MEDS: Metoprolol Succinate ER 50 MG TAB.ER.24H PO (08:28)
[2023-09-12] MEDS: Cholecalciferol (Vitamin D3) 25 MCG TABLET PO (08:28)
[2023-09-12] MEDS: Multivitamin TABLET 1 TAB PO (08:28)
[2023-09-12] MEDS: 0.9 % Sodium Chloride Flush 3 ML SYRINGE IVFLUSH ×2 (08:29→17:03)
[2023-09-12 11:22] LABS: Glucose, Whole Blood 204 mg/dL (60-115)
[2023-09-12 12:00] VITALS: BP 147/72; PULSE 95; RESP 19; TEMP 36.7; O2SAT 100
[2023-09-12] MEDS: Insulin Lispro 100 UNIT/ML 3 ML VIAL SUBCUT ×2 (12:21→22:26)
[2023-09-12] MEDS: Lactated Ringers 1,000 ML 125 ML IVCONT ×2 (12:21→22:27)
--- NOTE | 2023-09-12 13:35 | MHC.CM.PN ---
EMR reviewed and per MD rounds, pt is not medically cleared for discharge due to ongoing management of worsening LFT's, anemia, and thrombocytopenia.
--- NOTE | 2023-09-12 13:53 | P.PNIM_ITS ---
Subjective Subjective Date of Service: 09/12/23 Interval History: No acute issues overnight. Limited p.o. intake. Review of Systems Denies chest pain Denies shortness of breath Denies nausea vomiting diarrhea Denies fever chills Physical Exam 2 Vital Signs: Vital Signs: Last Vital Signs Temp 98.0 F 09/12/23 12:00 Pulse 95 09/12/23 12:00 Resp 19 09/12/23 12:00 BP 147/72 H 09/12/23 12:00 Pulse Ox 100 09/12/23 12:00 O2 Del Method Nasal Cannula 09/12/23 12:00 O2 Flow Rate 2 09/12/23 12:00 BMI result Body Mass Index 23.1 Const: Other: Awake awake alert no acute distress Resp: Other: Clear to auscultation bilaterally no rales rhonchi or wheezes Cardio: Other: No S4; positive S1-S2; no S3 murmurs rubs or gallops GI: Other: Soft nontender nondistended normoactive bowel sounds Extrem: Other: No edema bilaterally Objective Data Active Medications Acetaminophen (Acetaminophen 325 Mg Tablet) 650 mg PO Q6H PRN PRN Reason: Fever >100.4 Last Admin: 09/11/23 02:45 Dose: 650 mg Documented By: JACKI Acetaminophen/Butalbital/Caffeine (Butalb/Acetamin/Caff 50/325/40 Tablet) 1 tab PO Q8H PRN PRN Reason: Headache Last Admin: 09/09/23 20:19 Dose: 1 tab Documented By: ALEC Benzocaine (Throat Lozenge, Medicated Lozenge) 1 lozenge MUCOUS MEM Q2H PRN PRN Reason: Sore Throat Last Admin: 09/02/23 10:52 Dose: 1 lozenge Documented By: FRANKY Docusate Sodium (Docusate Sodium 100 Mg Capsule) 100 mg PO BID JORGE Last Admin: 09/12/23 10:31 Dose: Not Given Documented By: ELLI Non-Admin Reason: Patient Refused Glucose (Glucose Gel 15 Gm Gel..Gram.) 15 gm PO Q15M PRN; Protocol PRN Reason: per Hypoglycemia Standing Ord. Hydroxyzine HCl (Hydroxyzine Hcl 10 Mg Tablet) 10 mg PO Q8H PRN PRN Reason: anxiety/restlessness Dextrose (D10) 250 mls @ 750 mls/hr IV Q15M PRN; Protocol PRN Reason: per Hypoglycemia Standing Ord. Lactated Ringer's (Lr) 1,000 mls @ 125 mls/hr IVCONT .Q8H [facility] Last Admin: 09/12/23 12:21 Dose: 125 mls/hr Documented By: ELLI Insulin Human Lispro (Insulin Lispro 100 Unit/Ml 3 Ml Vial) 0 unit SUBCUT QIDACHS [facility]; Protocol Last Admin: 09/12/23 12:21 Dose: 4 unit Documented By: ELLI Lidocaine (Lidocaine 4 % Patch Adh..Patch) 1 patch TRANSDERMA DAILY [facility]; Protocol Last Admin: 09/12/23 08:28 Dose: 1 patch Documented By: ELLI Magnesium Hydroxide (Milk Of Magnesia 30 Ml Oral.Susp) 30 ml PO DAILY PRN PRN Reason: Constipation Last Admin: 09/02/23 19:01 Dose: 30 ml Documented By: FRANKY Metoprolol Succinate (Metoprolol Succinate Er 50 Mg Tab.Er.24h) 50 mg PO DAILY [facility]; Protocol Last Admin: 09/12/23 08:28 Dose: 50 mg Documented By: ELLI Multivitamins/Vitamin C (Multivitamin Tablet) 1 tab PO DAILY [facility] Last Admin: 09/12/23 08:28 Dose: 1 tab Documented By: ELLI Nitroglycerin (Nitroglycerin 0.4 Mg Tab.Subl) 0.4 mg SUBLINGUAL Q5MX3 PRN PRN Reason: Chest Pain Last Admin: 09/01/23 04:43 Dose: 0.4 mg Documented By: ANITHA Omeprazole (Omeprazole 20 Mg Capsule.Dr) 20 mg PO BID@0630,1630 [facility] Last Admin: 09/12/23 05:07 Dose: 20 mg Documented By: JACKI Ondansetron HCl (Ondansetron Hcl 4 Mg/2 Ml Vial) 4 mg IVPUSH Q8H PRN PRN Reason: Nausea and Vomiting Last Admin: 09/10/23 22:26 Dose: 4 mg Documented By: JACKI Polyethylene Glycol (Polyethylene Glycol 3350 17 Gm Powd.Pack) 17 gm PO DAILY [facility] Last Admin: 09/12/23 10:31 Dose: Not Given Documented By: ELLI Non-Admin Reason: Patient Refused Sodium Biphosphate/Sodium Phosphate (Sodium Phosphate,[place]-Dibasic 133 Ml Enema) 133 ml [place] ONCE PRN PRN Reason: Once Last Admin: 09/04/23 12:14 Dose: 133 ml Documented By: IQRA Sodium Chloride (0.9 % Sodium Chloride Flush 3 Ml Syringe) [facility] Last Admin: 09/12/23 08:29 Dose: 3 ml Documented By: ELLI Tramadol HCl (Tramadol Hcl 50 Mg Tablet) 50 mg PO Q6H PRN PRN Reason: Pain, Severe (Pain Scale 7-10) Last Admin: 09/12/23 05:07 Dose: 50 mg Documented By: JACKI Vitamin D (Cholecalciferol (Vitamin D3) 25 Mcg Tablet) 25 mcg PO DAILY [facility] Last Admin: 09/12/23 08:28 Dose: 25 mcg Documented By: ELLI Labs 09/12/23 06:25 09/11/23 05:51 Labs: Laboratory Results - last 24 hr 09/08/23 09/11/23 09/11/23 07:23 16:47 20:04 MCV MCH MCHC RDW Plt Count MPV Immature Gran % (Auto) Neut % (Auto) Lymph % (Auto) [place] % (Auto) Eos % (Auto) Baso % (Auto) Lymph # (Auto) [place] # (Auto) Eos # (Auto) Baso # (Auto) Abs Immat Gran (auto) Absolute Neuts (auto) Absolute Nucleated RBC Nucleated RBC % (auto) Neutrophils % (Manual) Band Neutrophils % Lymphocytes % (Manual) Atypical Lymphs % (Man) Monocytes % (Manual) Metamyelocytes % Abs Neuts (Manual) Lymphocytes # (Manual) Monocytes # (Manual) Nucleated RBCs Toxic Vacuolation Platelet Estimate Plt Morphology Comment RBC Morphology Polychromasia Hypochromasia Microcytosis POC Glucose 135 H 179 H Total Bilirubin Direct Bilirubin AST ALT Alkaline Phosphatase Total Protein Albumin Angiotensin Convert Enz 09/12/23 09/12/23 09/12/23 06:25 08:00 11:19 MCV 81.4 MCH 28.2 MCHC 34.6 RDW 15.9 Plt Count 30 L MPV 9.5 Immature Gran % (Auto) Cancelled Neut % (Auto) Cancelled Lymph % (Auto) Cancelled [place] % (Auto) Cancelled Eos % (Auto) Cancelled Baso % (Auto) Cancelled Lymph # (Auto) Cancelled [place] # (Auto) Cancelled Eos # (Auto) Cancelled Baso # (Auto) Cancelled Abs Immat Gran (auto) Cancelled Absolute Neuts (auto) Cancelled Absolute Nucleated RBC 0.080 H Nucleated RBC % (auto) 3.0 H Neutrophils % (Manual) 66 Band Neutrophils % 12 H Lymphocytes % (Manual) 17 L Atypical Lymphs % (Man) 1 Monocytes % (Manual) 3 Metamyelocytes % 1 Abs Neuts (Manual) 2.1 Lymphocytes # (Manual) 0.5 L Monocytes # (Manual) 0.1 Nucleated RBCs 2 H Toxic Vacuolation PRESENT Platelet Estimate DECREASED Plt Morphology Comment NORMAL RBC Morphology NOTED Polychromasia 1+ (0-2) Hypochromasia 1+ (5-14) Microcytosis 1+ (5-14) POC Glucose 97 204 H Total Bilirubin 7.6 H Direct Bilirubin 5.7 H AST 77 H ALT 64 H Alkaline Phosphatase 767 H Total Protein 5.3 L Albumin 2.7 L Angiotensin Convert Enz Assessment and Plan (1) Drug induced liver disease: Status: Acute (2) Thrombocytopenia: Status: Acute Plan 73 year old female with history of type 2 diabetes, hld, hx breast cancer 1990s found to have drug-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 Drug-induced hepatitis -clinically improved less tachycardia no fevers -Total bili continue to rise, AST/ALT improved -liver biopsy likely drug-induced hepatitis, only recent new drug is metformin currently on hold 3.Acute hypoxic respiratory failure -resolved Wean oxygen as tolerated, not on home O2 3.Anemia/thrombocytopenia (unclear etiology)--cbc reviewed by Hematology- no abnormal cells to suggest acute hematological process such as leukemia. -Received 1 u prbc (09/06) , hematocrit improved and remained stable -case discussed with Dr. Vasquez, she feels anemia and thrombocytopenia probably manifestation of liver disease no evidence of DIC or myelophthisic process 3.DM type 2 diabetes with hyperglycemia: -Stable blood sugars,hgb a1c 6.9% -lispro correctional scale compression boots full code. Ongoing hospitalization need: Multifactorial active issue are elevated liver functions, worsening anemia and thrombocytopenia requiring prn transfusion, acute hypoxemic respiratory failure, need close clinical follow-up that can not be provided in less acute setting. Quality Stroke Does the patient have a stroke diagnosis?: No VTE Prior VTE?: No VTE Risk Level:: Medical - moderate - high VTE Device Contraindication: Treatment Not Indicated VTE Drug Contraindication: N/A - Med Ordered
[2023-09-12 14:48] LABS: PTT (LAC) Screen 37 sec (<=40)
[2023-09-12 16:00] VITALS: BP 134/61; BP 161/72; PULSE 104; PULSE 96; RESP 16; TEMP 36.4; O2SAT 91
[2023-09-12 16:05] LABS: INTERNATIONAL NORM RATIO 1.2 (0.9-1.1); Prothrombin Time 14.2 SEC (11.1-13.3)
[2023-09-12 16:14] LABS: HLA B51 Comments See Comments; HLA B51 Method PCR SSOP
[2023-09-12 16:14] LABS: Glucose, Whole Blood 112 mg/dL (60-115)
[2023-09-12 16:16] LABS: Ammonia 53 umol/L (13-55)
[2023-09-12] MEDS: methylPREDNISolone Sod Succ 40 MG/ML VIAL IVPUSH ×2 (17:03→22:27)
--- NOTE | 2023-09-12 17:49 | PM.GIPN ---
Subjective Subjective Date of Service: 09/12/23 Interval History: Feeling about the same. Appetite and energy level remain only fair. Denies abdominal pain, N/V or diarrhea. She does report of blackish stool. Critical Care Time (minutes): 0 Physical Exam Vital Signs: Vital Signs: Last Vital Signs Temp 97.5 F 09/12/23 16:00 Pulse 104 H 09/12/23 16:00 Resp 16 09/12/23 16:00 BP 161/72 H 09/12/23 16:00 Pulse Ox 91 L 09/12/23 16:00 O2 Del Method Nasal Cannula 09/12/23 16:00 O2 Flow Rate 2 09/12/23 16:00 BMI result Body Mass Index 23.1 Const: General: cooperative, comfortable, no acute distress, well developed, alert and awake HEENT: Other: Anicteric sclerae, MMM GI: Other: Abd-Soft, NT, nondistended, no mass, no HSM Objective Data Labs 09/12/23 06:25 09/11/23 05:51 Labs: Laboratory Results - last 24 hr 09/07/23 09/08/23 09/11/23 05:40 07:23 20:04 WBC RBC Hgb Hct MCV MCH MCHC RDW Plt Count MPV Immature Gran % (Auto) Neut % (Auto) Lymph % (Auto) [place] % (Auto) Eos % (Auto) Baso % (Auto) Lymph # (Auto) [place] # (Auto) Eos # (Auto) Baso # (Auto) Abs Immat Gran (auto) Absolute Neuts (auto) Absolute Nucleated RBC Nucleated RBC % (auto) Neutrophils % (Manual) Band Neutrophils % Lymphocytes % (Manual) Atypical Lymphs % (Man) Monocytes % (Manual) Metamyelocytes % Abs Neuts (Manual) Lymphocytes # (Manual) Monocytes # (Manual) Nucleated RBCs Toxic Vacuolation Platelet Estimate Plt Morphology Comment RBC Morphology Polychromasia Hypochromasia Microcytosis PT INR LA PTT Screen 37 dRVV Screen 33 Lupus Anticoag Interp see note POC Glucose 179 H Total Bilirubin Direct Bilirubin AST ALT Alkaline Phosphatase Ammonia Total Protein Albumin Angiotensin Convert Enz 25 HLA-B51 See Comments 09/12/23 09/12/23 09/12/23 06:25 08:00 11:19 WBC 2.7 L RBC 3.12 L Hgb 8.8 L Hct 25.4 L MCV 81.4 MCH 28.2 MCHC 34.6 RDW 15.9 Plt Count 30 L MPV 9.5 Immature Gran % (Auto) Cancelled Neut % (Auto) Cancelled Lymph % (Auto) Cancelled [place] % (Auto) Cancelled Eos % (Auto) Cancelled Baso % (Auto) Cancelled Lymph # (Auto) Cancelled [place] # (Auto) Cancelled Eos # (Auto) Cancelled Baso # (Auto) Cancelled Abs Immat Gran (auto) Cancelled Absolute Neuts (auto) Cancelled Absolute Nucleated RBC 0.080 H Nucleated RBC % (auto) 3.0 H Neutrophils % (Manual) 66 Band Neutrophils % 12 H Lymphocytes % (Manual) 17 L Atypical Lymphs % (Man) 1 Monocytes % (Manual) 3 Metamyelocytes % 1 Abs Neuts (Manual) 2.1 Lymphocytes # (Manual) 0.5 L Monocytes # (Manual) 0.1 Nucleated RBCs 2 H Toxic Vacuolation PRESENT Platelet Estimate DECREASED Plt Morphology Comment NORMAL RBC Morphology NOTED Polychromasia 1+ (0-2) Hypochromasia 1+ (5-14) Microcytosis 1+ (5-14) PT INR LA PTT Screen dRVV Screen Lupus Anticoag Interp POC Glucose 97 204 H Total Bilirubin 7.6 H Direct Bilirubin 5.7 H AST 77 H ALT 64 H Alkaline Phosphatase 767 H Ammonia Total Protein 5.3 L Albumin 2.7 L Angiotensin Convert Enz HLA-B51 09/12/23 09/12/23 15:43 16:09 WBC RBC Hgb Hct MCV MCH MCHC RDW Plt Count MPV Immature Gran % (Auto) Neut % (Auto) Lymph % (Auto) [place] % (Auto) Eos % (Auto) Baso % (Auto) Lymph # (Auto) [place] # (Auto) Eos # (Auto) Baso # (Auto) Abs Immat Gran (auto) Absolute Neuts (auto) Absolute Nucleated RBC Nucleated RBC % (auto) Neutrophils % (Manual) Band Neutrophils % Lymphocytes % (Manual) Atypical Lymphs % (Man) Monocytes % (Manual) Metamyelocytes % Abs Neuts (Manual) Lymphocytes # (Manual) Monocytes # (Manual) Nucleated RBCs Toxic Vacuolation Platelet Estimate Plt Morphology Comment RBC Morphology Polychromasia Hypochromasia Microcytosis PT 14.2 H INR 1.2 H LA PTT Screen dRVV Screen Lupus Anticoag Interp POC Glucose 112 Total Bilirubin Direct Bilirubin AST ALT Alkaline Phosphatase Ammonia 53 Total Protein Albumin Angiotensin Convert Enz HLA-B51 Microbiology Microbiology Results: Microbiology 09/08/23 00:47 Blood - Venous Blood Culture - Preliminary No growth after 48 hours. 09/08/23 00:47 Blood - Venous Blood Culture - Preliminary No growth after 48 hours. 09/03/23 13:20 Blood - Venous Blood Culture - Final No growth after 5 days. 09/03/23 13:20 Blood - Venous Blood Culture - Final No growth after 5 days. 09/05/23 01:40 Urine clean catch Urine Culture - Final Corynebacterium species Procedures Date of Service Date of Service: 09/12/23 Progress Note: A&P Assessment and plan (1) Drug induced liver disease: Status: Acute (2) Thrombocytopenia: Status: Acute (3) Abnormal LFTs: Status: Acute (4) Anemia: Status: Acute Assessment and Plan: Imp: Appears stable, albeit still somewhat subpar. Her cholestatic jaundice with the rising TBili and Alk phos is c/w a resolving hepatitis as evidenced by the decreasing AST/ALT. The working diagnosis is that of a drug-induced hepatitis. Her Hematologic status remains concerning with a worsening pancytopenia of unknown etiology. The report of blackish stools is of concern due to the low platelets. Rec: Continue to follow labs closely. IV PPI BID. Abd U/S with Dopplers, recheck Hepatitis A,B, C serologies, and check ammonia level and PT/INR to further assess for any component of liver dysfunction.Thanks Time Spent With Patient Time: Total time managing care of this patient today ____ minutes. Quality Stroke Does the patient have a stroke diagnosis?: No VTE Prior VTE?: No VTE Risk Level:: Medical - moderate - high VTE Device Contraindication: Treatment Not Indicated VTE Drug Contraindication: N/A - Med Ordered
[2023-09-12] MEDS: Pantoprazole Sodium 40 MG/10 ML VIAL IVPUSH (18:25)
[2023-09-12 19:47] VITALS: BP 157/69; PULSE 107; RESP 18; TEMP 37.1; O2SAT 92
[2023-09-12 20:16] LABS: Glucose, Whole Blood 189 mg/dL (60-115)
[2023-09-12 23:28] VITALS: BP 147/72; PULSE 93; RESP 20; TEMP 36.7; O2SAT 96
[2023-09-13] VITALS (10 sets, daily range): BP systolic 137–156; BP diastolic 61–72; PULSE 85–98; RESP 16–20; TEMP 36.1–36.6; O2SAT 94–99
--- NOTE | 2023-09-13 03:00 | PC.NURSE ---
pt reports 8/10 pain over sternum. hx dementia. pt states pain is worse when this nurse palpates sternum and also worse with deep breath. assessed with baseball pitcher at bedside. pt appears calm, arousable to voice and still following simple commands. vitals within normal limits. ekg done. heparin still running. EKG sent to MD over tiger [facility]. sitter in room, high fall precautions in place. call kulkarni within reach. plan of care ongoing
[2023-09-13] MEDS: methylPREDNISolone Sod Succ 40 MG/ML VIAL IVPUSH ×4 (03:28→22:44)
[2023-09-13] MEDS: hydrOXYzine HCL 10 MG TABLET PO ×2 (03:28→20:15)
[2023-09-13] MEDS: Pantoprazole Sodium 40 MG/10 ML VIAL IVPUSH ×2 (06:16→16:41)
[2023-09-13] MEDS: Lactated Ringers 1,000 ML 125 ML IVCONT ×3 (06:16→22:44)
[2023-09-13 07:02] LABS: Hematocrit 24.8 % (37.0-47.0); Hemoglobin 8.4 g/dl (12.0-16.0); Mean Corpuscular HGB Conc 33.9 g/dl (31.0-35.0); Mean Corpuscular Hemoglobin 27.4 pg (27.0-33.0); Mean Corpuscular Volume 80.8 fL (80.0-98.0); Mean Platelet Volume 9.3 fL (9.4-12.3); Red Blood Count 3.07 X10*6/uL (4.20-5.50); White Blood Count 2.7 X10*3/uL (4.8-10.8)
[2023-09-13 07:07] LABS: NRBC Pct Auto 2.6 /100WBC (0.0-0.2); Platelet Count 30 X10*3/uL (160-400)
[2023-09-13 07:34] LABS: Glucose, Whole Blood 153 mg/dL (60-115)
[2023-09-13 07:41] LABS: Alanine Aminotransferase 75 U/L (0-31); Albumin Level 2.5 g/dL (3.5-5.0); Alkaline Phosphatase 808 U/L (39-117); Anion Gap 14 (12-20); Aspartate Amino Transferase 92 U/L (5-31); Bilirubin Direct 4.8 mg/dL (0.0-0.5); Bilirubin Total 6.4 mg/dL (0.0-1.0); Blood Urea Nitrogen 23 mg/dL (9-16); Calcium 9.1 mg/dL (8.4-10.2); Carbon Dioxide 28 mmol/L (22-29); Chloride 97 mmol/L (96-108); Creatinine Clr Calc Pharmacy 78.6; Estimated Glomerular Filt Rate > 60; Glucose Fasting 150 mg/dL (60-99); Potassium 4.2 mmol/L (3.3-5.1); Sodium 135 mmol/L (135-145); Total Protein 5.1 g/dL (6.5-8.0)
[2023-09-13 08:07] LABS: Band Neutrophils Percent 4 % (3-5); Lymphocytes Absolute Manual 0.3 X10*3/uL (1.2-4.9); Lymphocytes Percent Manual 10 % (20-40); Metamyelocytes Absolute 0.1 X10*3/uL; Metamyelocytes Percent 5 %; Monocytes Absolute Manual 0.1 X10*3/uL (0.1-1.2); Monocytes Percent Manual 4 % (2-11); Neutrophils Absolute Manual 2.2 X10*3/uL (2.0-8.3); Neutrophils Percent Manual 77 % (45-73); Nucleated Red Blood Cells 3 /100WBC (0-0)
[2023-09-13 08:09] LABS: Hypochromasia 1+ (5-14) /OIF; Polychromasia 1+ (0-2) /OIF; RBC Morphology NOTED
[2023-09-13 08:10] LABS: Platelet Estimate DECREASED (NORMAL); Platelet Morphology Comment NORMAL; Target Cells 1+ (5-14) /OIF
[2023-09-13] MEDS: Insulin Lispro 100 UNIT/ML 3 ML VIAL SUBCUT ×4 (08:19→20:18)
[2023-09-13] MEDS: 0.9 % Sodium Chloride Flush 3 ML SYRINGE IVFLUSH (08:19)
[2023-09-13] MEDS: Multivitamin TABLET 1 TAB PO (08:20)
[2023-09-13] MEDS: Metoprolol Succinate ER 50 MG TAB.ER.24H PO (08:20)
[2023-09-13] MEDS: Cholecalciferol (Vitamin D3) 25 MCG TABLET PO (08:20)
[2023-09-13 08:30] LABS: Lactate Dehydrogenase 701 U/L (122-220)
[2023-09-13 11:37] LABS: Glucose, Whole Blood 249 mg/dL (60-115)
--- NOTE | 2023-09-13 14:44 | HO.PM.IMPN ---
Subjective Subjective Date of Service: 09/13/23 Interval History: Feels better today. No acute complaints Review of Systems Denies chest pain Denies shortness of breath Denies nausea vomiting diarrhea Denies fever chills Physical Exam Vital Signs: Vital Signs: Last Vital Signs Temp 97.1 F 09/13/23 12:00 Pulse 89 09/13/23 12:00 Resp 20 09/13/23 12:00 BP 148/67 H 09/13/23 12:00 Pulse Ox 99 09/13/23 12:00 O2 Del Method Nasal Cannula 09/13/23 12:00 O2 Flow Rate 1 09/13/23 12:00 BMI result Body Mass Index 23.1 Const: Other: Awake awake alert no acute distress Resp: Other: Clear to auscultation bilaterally no rales rhonchi or wheezes Cardio: Other: No S4; positive S1-S2; no S3 murmurs rubs or gallops GI: Other: Soft nontender nondistended normoactive bowel sounds Extrem: Other: No edema bilaterally Objective Data Active Medications Acetaminophen/Butalbital/Caffeine (Butalb/Acetamin/Caff 50/325/40 Tablet) 1 tab PO Q8H PRN PRN Reason: Headache Last Admin: 09/09/23 20:19 Dose: 1 tab Documented By: ALEC Benzocaine (Throat Lozenge, Medicated Lozenge) 1 lozenge MUCOUS MEM Q2H PRN PRN Reason: Sore Throat Last Admin: 09/02/23 10:52 Dose: 1 lozenge Documented By: FRANKY Docusate Sodium (Docusate Sodium 100 Mg Capsule) 100 mg PO BID [facility] Last Admin: 09/13/23 08:20 Dose: Not Given Documented By: YUSEF Non-Admin Reason: Patient Refused Glucose (Glucose Gel 15 Gm Gel..Gram.) 15 gm PO Q15M PRN; Protocol PRN Reason: per Hypoglycemia Standing Ord. Hydroxyzine HCl (Hydroxyzine Hcl 10 Mg Tablet) 10 mg PO Q8H PRN PRN Reason: anxiety/restlessness Last Admin: 09/13/23 03:28 Dose: 10 mg Documented By: YUSUF Dextrose (D10) 250 mls @ 750 mls/hr IV Q15M PRN; Protocol PRN Reason: per Hypoglycemia Standing Ord. Lactated Ringer's (Lr) 1,000 mls @ 125 mls/hr IVCONT .Q8H [facility] Last Admin: 09/13/23 14:17 Dose: 125 mls/hr Documented By: YUSEF Insulin Human Lispro (Insulin Lispro 100 Unit/Ml 3 Ml Vial) 0 unit SUBCUT QIDACHS [facility]; Protocol Last Admin: 09/13/23 11:37 Dose: 4 unit Documented By: YUSEF Lidocaine (Lidocaine 4 % Patch Adh..Patch) 1 patch TRANSDERMA DAILY [facility]; Protocol Last Admin: 09/13/23 08:18 Dose: Not Given Documented By: YUSEF Non-Admin Reason: Patient Refused Magnesium Hydroxide (Milk Of Magnesia 30 Ml Oral.Susp) 30 ml PO DAILY PRN PRN Reason: Constipation Last Admin: 09/02/23 19:01 Dose: 30 ml Documented By: FRANKY Methylprednisolone Sodium Succinate (Methylprednisolone Sod Succ 40 Mg/Ml Vial) 40 mg IVPUSH Q6H [facility] Last Admin: 09/13/23 10:44 Dose: 40 mg Documented By: YUSEF Metoprolol Succinate (Metoprolol Succinate Er 50 Mg Tab.Er.24h) 50 mg PO DAILY [facility]; Protocol Last Admin: 09/13/23 08:20 Dose: 50 mg Documented By: YUSEF Multivitamins/Vitamin C (Multivitamin Tablet) 1 tab PO DAILY [facility] Last Admin: 09/13/23 08:20 Dose: 1 tab Documented By: YUSEF Nitroglycerin (Nitroglycerin 0.4 Mg Tab.Subl) 0.4 mg SUBLINGUAL Q5MX3 PRN PRN Reason: Chest Pain Last Admin: 09/01/23 04:43 Dose: 0.4 mg Documented By: ANITHA Ondansetron HCl (Ondansetron Hcl 4 Mg/2 Ml Vial) 4 mg IVPUSH Q8H PRN PRN Reason: Nausea and Vomiting Last Admin: 09/10/23 22:26 Dose: 4 mg Documented By: JACKI Pantoprazole Sodium (Pantoprazole Sodium 40 Mg/10 Ml Vial) 40 mg IVPUSH BID@0630,1630 [facility] Last Admin: 09/13/23 06:16 Dose: 40 mg Documented By: HO.LAFLAMC Polyethylene Glycol (Polyethylene Glycol 3350 17 Gm Powd.Pack) 17 gm PO DAILY [facility] Last Admin: 09/13/23 08:19 Dose: Not Given Documented By: YUSEF Non-Admin Reason: Patient Refused Sodium Biphosphate/Sodium Phosphate (Sodium Phosphate,[place]-Dibasic 133 Ml Enema) 133 ml ND ONCE PRN PRN Reason: Once Last Admin: 09/04/23 12:14 Dose: 133 ml Documented By: IQRA Sodium Chloride (0.9 % Sodium Chloride Flush 3 Ml Syringe) 3 ml IVFLUSH QSHIFT [facility] Last Admin: 09/13/23 08:19 Dose: 3 ml Documented By: YUSEF Vitamin D (Cholecalciferol (Vitamin D3) 25 Mcg Tablet) 25 mcg PO DAILY [facility] Last Admin: 09/13/23 08:20 Dose: 25 mcg Documented By: YUSEF Labs 09/13/23 06:06 09/13/23 06:06 Labs: Laboratory Results - last 24 hr 09/07/23 09/12/23 09/12/23 05:40 15:43 16:09 MCV MCH MCHC RDW Plt Count MPV Immature Gran % (Auto) Neut % (Auto) Lymph % (Auto) [place] % (Auto) Eos % (Auto) Baso % (Auto) Lymph # (Auto) [place] # (Auto) Eos # (Auto) Baso # (Auto) Abs Immat Gran (auto) Absolute Neuts (auto) Absolute Nucleated RBC Nucleated RBC % (auto) Neutrophils % (Manual) Band Neutrophils % Lymphocytes % (Manual) Monocytes % (Manual) Metamyelocytes % Abs Neuts (Manual) Lymphocytes # (Manual) Monocytes # (Manual) Metamyelocytes # Nucleated RBCs Platelet Estimate Plt Morphology Comment RBC Morphology Polychromasia Hypochromasia Target Cells PT 14.2 H INR 1.2 H LA PTT Screen 37 dRVV Screen 33 Lupus Anticoag Interp see note Anion Gap Estim Creat Clear Calc Estimated GFR POC Glucose 112 Fasting Glucose Calcium Total Bilirubin Direct Bilirubin AST ALT Alkaline Phosphatase Ammonia 53 Lactate Dehydrogenase Total Protein Albumin HLA-B51 See Comments 09/12/23 09/13/23 09/13/23 20:11 06:06 07:19 MCV 80.8 MCH 27.4 MCHC 33.9 RDW 16.0 Plt Count 30 L MPV 9.3 L Immature Gran % (Auto) Cancelled Neut % (Auto) Cancelled Lymph % (Auto) Cancelled [place] % (Auto) Cancelled Eos % (Auto) Cancelled Baso % (Auto) Cancelled Lymph # (Auto) Cancelled [place] # (Auto) Cancelled Eos # (Auto) Cancelled Baso # (Auto) Cancelled Abs Immat Gran (auto) Cancelled Absolute Neuts (auto) Cancelled Absolute Nucleated RBC 0.070 H Nucleated RBC % (auto) 2.6 H Neutrophils % (Manual) 77 H Band Neutrophils % 4 Lymphocytes % (Manual) 10 L Monocytes % (Manual) 4 Metamyelocytes % 5 Abs Neuts (Manual) 2.2 Lymphocytes # (Manual) 0.3 L Monocytes # (Manual) 0.1 Metamyelocytes # 0.1 Nucleated RBCs 3 H Platelet Estimate DECREASED Plt Morphology Comment NORMAL RBC Morphology NOTED Polychromasia 1+ (0-2) Hypochromasia 1+ (5-14) Target Cells 1+ (5-14) PT INR LA PTT Screen dRVV Screen Lupus Anticoag Interp Anion Gap 14 Estim Creat Clear Calc 78.6 Estimated GFR > 60 POC Glucose 189 H 153 H Fasting Glucose 150 H Calcium 9.1 D Total Bilirubin 6.4 H Direct Bilirubin 4.8 H AST 92 H ALT 75 H Alkaline Phosphatase 808 H Ammonia Lactate Dehydrogenase 701 H Total Protein 5.1 L Albumin 2.5 L HLA-B51 09/13/23 11:24 MCV MCH MCHC RDW Plt Count MPV Immature Gran % (Auto) Neut % (Auto) Lymph % (Auto) [place] % (Auto) Eos % (Auto) Baso % (Auto) Lymph # (Auto) [place] # (Auto) Eos # (Auto) Baso # (Auto) Abs Immat Gran (auto) Absolute Neuts (auto) Absolute Nucleated RBC Nucleated RBC % (auto) Neutrophils % (Manual) Band Neutrophils % Lymphocytes % (Manual) Monocytes % (Manual) Metamyelocytes % Abs Neuts (Manual) Lymphocytes # (Manual) Monocytes # (Manual) Metamyelocytes # Nucleated RBCs Platelet Estimate Plt Morphology Comment RBC Morphology Polychromasia Hypochromasia Target Cells PT INR LA PTT Screen dRVV Screen Lupus Anticoag Interp Anion Gap Estim Creat Clear Calc Estimated GFR POC Glucose 249 H Fasting Glucose Calcium Total Bilirubin Direct Bilirubin AST ALT Alkaline Phosphatase Ammonia Lactate Dehydrogenase Total Protein Albumin HLA-B51 Microbiology Microbiology Results: Microbiology 09/08/23 00:47 Blood Culture - Final Blood - Venous No growth after 5 days. 09/08/23 00:47 Blood Culture - Final Blood - Venous No growth after 5 days. 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 -Received 1 u prbc (09/06) , hematocrit improved and remained stable -case discussed with Dr. Vasquez, she feels anemia and thrombocytopenia probably manifestation of liver disease no evidence of DIC or myelophthisic process -count stable; follow daily 3.DM type 2 diabetes with hyperglycemia: -Stable blood sugars,hgb a1c 6.9% -lispro correctional scale compression boots full code. Ongoing hospitalization need: Multifactorial active issue are elevated liver functions, worsening anemia and thrombocytopenia requiring prn transfusion, acute hypoxemic respiratory failure, need close clinical follow-up that can not be provided in less acute setting. Quality Stroke Does the patient have a stroke diagnosis?: No VTE Prior VTE?: No VTE Risk Level:: Medical - moderate - high VTE Device Contraindication: Treatment Not Indicated VTE Drug Contraindication: N/A - Med Ordered
[2023-09-13 16:13] LABS: Glucose, Whole Blood 211 mg/dL (60-115)
[2023-09-13 20:31] LABS: Glucose, Whole Blood 182 mg/dL (60-115)
[2023-09-14] VITALS (8 sets, daily range): BP systolic 117–150; BP diastolic 56–77; PULSE 87–101; RESP 16–20; TEMP 36–36.7; O2SAT 92–96
[2023-09-14] MEDS: methylPREDNISolone Sod Succ 40 MG/ML VIAL IVPUSH ×4 (04:23→22:20)
[2023-09-14] MEDS: Pantoprazole Sodium 40 MG/10 ML VIAL IVPUSH ×2 (05:48→16:32)
[2023-09-14] MEDS: Lactated Ringers 1,000 ML 125 ML IVCONT ×3 (06:27→22:15)
[2023-09-14 06:38] LABS: Hematocrit 24.6 % (37.0-47.0); Hemoglobin 8.6 g/dl (12.0-16.0); Mean Corpuscular Hemoglobin 27.9 pg (27.0-33.0); Mean Corpuscular Volume 79.9 fL (80.0-98.0); Mean Platelet Volume 9.1 fL (9.4-12.3); Red Blood Count 3.08 X10*6/uL (4.20-5.50); Red Cell Distribution Width 16.1 % (11.0-16.0); White Blood Count 3.2 X10*3/uL (4.8-10.8)
[2023-09-14 06:39] LABS: NRBC Pct Auto 2.5 /100WBC (0.0-0.2); Platelet Count 33 X10*3/uL (160-400)
[2023-09-14 07:11] LABS: Alanine Aminotransferase 102 U/L (0-31); Albumin Level 2.5 g/dL (3.5-5.0); Alkaline Phosphatase 866 U/L (39-117); Anion Gap 13 (12-20); Aspartate Amino Transferase 102 U/L (5-31); Bilirubin Total 3.7 mg/dL (0.0-1.0); Blood Urea Nitrogen 23 mg/dL (9-16); Calcium 8.7 mg/dL (8.4-10.2); Carbon Dioxide 28 mmol/L (22-29); Chloride 100 mmol/L (96-108); Creatinine Clr Calc Pharmacy 76.1; Estimated Glomerular Filt Rate > 60; Glucose Fasting 158 mg/dL (60-99); Potassium 4.1 mmol/L (3.3-5.1); Sodium 137 mmol/L (135-145); Total Protein 5.2 g/dL (6.5-8.0)
[2023-09-14 07:21] LABS: Band Neutrophils Percent 6 % (3-5); Lymphocytes Absolute Manual 0.2 X10*3/uL (1.2-4.9); Lymphocytes Percent Manual 7 % (20-40); Metamyelocytes Absolute 0.1 X10*3/uL; Metamyelocytes Percent 4 %; Microcytosis 1+ (5-14) /OIF; Monocytes Percent Manual 1 % (2-11); Neutrophils Absolute Manual 2.8 X10*3/uL (2.0-8.3); Neutrophils Percent Manual 82 % (45-73); Nucleated Red Blood Cells 4 /100WBC (0-0); RBC Morphology NOTED
[2023-09-14 07:22] LABS: Ovalocytes 1+ (5-14) /OIF; Platelet Estimate DECREASED (NORMAL); Platelet Morphology Comment NORMAL
[2023-09-14 07:45] LABS: Glucose, Whole Blood 149 mg/dL (60-115)
[2023-09-14] MEDS: Metoprolol Succinate ER 50 MG TAB.ER.24H PO (08:00)
[2023-09-14] MEDS: Multivitamin TABLET 1 TAB PO (08:00)
[2023-09-14] MEDS: Cholecalciferol (Vitamin D3) 25 MCG TABLET PO (08:00)
--- NOTE | 2023-09-14 10:30 | PC.NURSE ---
Patient ambulated with walker and ZANDRA, Carlos, to bathroom, when patient got to toilet she reports her knees buckling and brought herself to her knees. [employer] was able to assist patient back to feet. Patient reports no injury. Dr. Rockwell, DOROTHEA, and expedition supervisor notified. PT lila ordered, vss.
[2023-09-14 11:15] LABS: Glucose, Whole Blood 264 mg/dL (60-115)
[2023-09-14] MEDS: Insulin Lispro 100 UNIT/ML 3 ML VIAL SUBCUT ×3 (11:18→22:26)
--- NOTE | 2023-09-14 12:00 | P.PNIM_ITS ---
Subjective Subjective Date of Service: 09/14/23 Interval History: Jaundice improved; still feels weak with ambulation. Review of Systems Denies chest pain Denies shortness of breath Denies nausea vomiting diarrhea Denies fever chills Physical Exam 2 Vital Signs: Vital Signs: Last Vital Signs Temp 97.6 F 09/14/23 11:51 Pulse 88 09/14/23 11:51 Resp 20 09/14/23 11:51 BP 133/63 09/14/23 11:51 Pulse Ox 96 09/14/23 11:51 O2 Del Method Room Air 09/14/23 11:51 O2 Flow Rate 1 09/13/23 22:58 BMI result Body Mass Index 23.1 Const: Other: Awake awake alert no acute distress Resp: Other: Clear to auscultation bilaterally no rales rhonchi or wheezes Cardio: Other: No S4; positive S1-S2; no S3 murmurs rubs or gallops GI: Other: Soft nontender nondistended normoactive bowel sounds Extrem: Other: No edema bilaterally Objective Data Active Medications Acetaminophen/Butalbital/Caffeine (Butalb/Acetamin/Caff 50/325/40 Tablet) 1 tab PO Q8H PRN PRN Reason: Headache Last Admin: 09/09/23 20:19 Dose: 1 tab Documented By: ALEC Benzocaine (Throat Lozenge, Medicated Lozenge) 1 lozenge MUCOUS MEM Q2H PRN PRN Reason: Sore Throat Last Admin: 09/02/23 10:52 Dose: 1 lozenge Documented By: FRANKY Docusate Sodium (Docusate Sodium 100 Mg Capsule) 100 mg PO BID [facility] Last Admin: 09/14/23 08:37 Dose: Not Given Documented By: YUSEF Non-Admin Reason: Patient Refused Glucose (Glucose Gel 15 Gm Gel..Gram.) 15 gm PO Q15M PRN; Protocol PRN Reason: per Hypoglycemia Standing Ord. Hydroxyzine HCl (Hydroxyzine Hcl 10 Mg Tablet) 10 mg PO Q8H PRN PRN Reason: anxiety/restlessness Last Admin: 09/13/23 20:15 Dose: 10 mg Documented By: YUSUF Dextrose (D10) 250 mls @ 750 mls/hr IV Q15M PRN; Protocol PRN Reason: per Hypoglycemia Standing Ord. Lactated Ringer's (Lr) 1,000 mls @ 125 mls/hr IVCONT .Q8H [facility] Last Admin: 09/14/23 06:27 Dose: 125 mls/hr Documented By: YUSUF Insulin Human Lispro (Insulin Lispro 100 Unit/Ml 3 Ml Vial) 0 unit SUBCUT QIDACHS [facility]; Protocol Last Admin: 09/14/23 11:18 Dose: 6 unit Documented By: YUSEF Lidocaine (Lidocaine 4 % Patch Adh..Patch) 1 patch TRANSDERMA DAILY [facility]; Protocol Last Admin: 09/14/23 08:36 Dose: Not Given Documented By: YUSEF Non-Admin Reason: Patient Refused Magnesium Hydroxide (Milk Of Magnesia 30 Ml Oral.Susp) 30 ml PO DAILY PRN PRN Reason: Constipation Last Admin: 09/02/23 19:01 Dose: 30 ml Documented By: FRANKY Methylprednisolone Sodium Succinate (Methylprednisolone Sod Succ 40 Mg/Ml Vial) 40 mg IVPUSH Q6H [facility] Last Admin: 09/14/23 11:18 Dose: 40 mg Documented By: YUSEF Metoprolol Succinate (Metoprolol Succinate Er 50 Mg Tab.Er.24h) 50 mg PO DAILY [facility]; Protocol Last Admin: 09/14/23 08:00 Dose: 50 mg Documented By: YUSFE Multivitamins/Vitamin C (Multivitamin Tablet) 1 tab PO DAILY [facility] Last Admin: 09/14/23 08:00 Dose: 1 tab Documented By: YUSEF Nitroglycerin (Nitroglycerin 0.4 Mg Tab.Subl) 0.4 mg SUBLINGUAL Q5MX3 PRN PRN Reason: Chest Pain Last Admin: 09/01/23 04:43 Dose: 0.4 mg Documented By: ANITHA Ondansetron HCl (Ondansetron Hcl 4 Mg/2 Ml Vial) 4 mg IVPUSH Q8H PRN PRN Reason: Nausea and Vomiting Last Admin: 09/10/23 22:26 Dose: 4 mg Documented By: JACKI Pantoprazole Sodium (Pantoprazole Sodium 40 Mg/10 Ml Vial) 40 mg IVPUSH BID@0630,1630 [facility] Last Admin: 09/14/23 05:48 Dose: 40 mg Documented By: YUSUF Polyethylene Glycol (Polyethylene Glycol 3350 17 Gm Powd.Pack) 17 gm PO DAILY [facility] Last Admin: 09/14/23 08:37 Dose: Not Given Documented By: YUSEF Non-Admin Reason: Patient Refused Sodium Biphosphate/Sodium Phosphate (Sodium Phosphate,[place]-Dibasic 133 Ml Enema) 133 ml MS ONCE PRN PRN Reason: Once Last Admin: 09/04/23 12:14 Dose: 133 ml Documented By: IQRA Sodium Chloride (0.9 % Sodium Chloride Flush 3 Ml Syringe) 3 ml IVFLUSH QSHIFT [facility] Last Admin: 09/14/23 07:56 Dose: Not Given Documented By: YUSEF Non-Admin Reason: IV Running Vitamin D (Cholecalciferol (Vitamin D3) 25 Mcg Tablet) 25 mcg PO DAILY [facility] Last Admin: 09/14/23 08:00 Dose: 25 mcg Documented By: YUSEF Labs 09/14/23 06:25 09/14/23 06:25 Labs: Laboratory Results - last 24 hr 09/13/23 09/13/23 09/14/23 15:58 20:14 06:25 MCV 79.9 L MCH 27.9 MCHC 35.0 RDW 16.1 H Plt Count 33 L MPV 9.1 L Immature Gran % (Auto) Cancelled Neut % (Auto) Cancelled Lymph % (Auto) Cancelled [place] % (Auto) Cancelled Eos % (Auto) Cancelled Baso % (Auto) Cancelled Lymph # (Auto) Cancelled [place] # (Auto) Cancelled Eos # (Auto) Cancelled Baso # (Auto) Cancelled Abs Immat Gran (auto) Cancelled Absolute Neuts (auto) Cancelled Absolute Nucleated RBC 0.080 H Nucleated RBC % (auto) 2.5 H Neutrophils % (Manual) 82 H Band Neutrophils % 6 H Lymphocytes % (Manual) 7 L Monocytes % (Manual) 1 L Metamyelocytes % 4 Abs Neuts (Manual) 2.8 Lymphocytes # (Manual) 0.2 L Metamyelocytes # 0.1 Nucleated RBCs 4 H Platelet Estimate DECREASED Plt Morphology Comment NORMAL RBC Morphology NOTED Microcytosis 1+ (5-14) Ovalocytes 1+ (5-14) Anion Gap 13 Estim Creat Clear Calc 76.1 Estimated GFR > 60 POC Glucose 211 H 182 H Fasting Glucose 158 H Calcium 8.7 Total Bilirubin 3.7 H AST 102 H ALT 102 H Alkaline Phosphatase 866 H Total Protein 5.2 L Albumin 2.5 L 09/14/23 09/14/23 07:16 11:12 MCV MCH MCHC RDW Plt Count MPV Immature Gran % (Auto) Neut % (Auto) Lymph % (Auto) [place] % (Auto) Eos % (Auto) Baso % (Auto) Lymph # (Auto) [place] # (Auto) Eos # (Auto) Baso # (Auto) Abs Immat Gran (auto) Absolute Neuts (auto) Absolute Nucleated RBC Nucleated RBC % (auto) Neutrophils % (Manual) Band Neutrophils % Lymphocytes % (Manual) Monocytes % (Manual) Metamyelocytes % Abs Neuts (Manual) Lymphocytes # (Manual) Metamyelocytes # Nucleated RBCs Platelet Estimate Plt Morphology Comment RBC Morphology Microcytosis Ovalocytes Anion Gap Estim Creat Clear Calc Estimated GFR POC Glucose 149 H 264 H Fasting Glucose Calcium Total Bilirubin AST ALT Alkaline Phosphatase Total Protein Albumin Assessment and Plan (1) Drug induced liver disease: Status: Acute (2) Thrombocytopenia: Status: Acute (3) Type 2 diabetes mellitus with hyperglycemia, without long-term current use of insulin: Status: Acute Plan 73 year old female with history of type 2 diabetes, hld, hx breast cancer 1990s 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 3.Acute hypoxic respiratory failure -resolved -no further O2 requirement 4.Anemia/thrombocytopenia (unclear etiology)--cbc reviewed by Hematology- no abnormal cells to suggest acute hematological process such as leukemia. -Received 1 u prbc (09/06) , hematocrit improved and remained stable -case discussed with Dr. Vasquez, she feels anemia and thrombocytopenia probably manifestation of liver disease no evidence of DIC or myelophthisic process -count stable; follow daily -outpatient follow-up 3.DM type 2 diabetes with hyperglycemia: -Stable blood sugars,hgb a1c 6.9% -lispro correctional scale compression boots full code. Ongoing hospitalization need: Multifactorial active issue are elevated liver functions, worsening anemia and thrombocytopenia requiring prn transfusion, acute hypoxemic respiratory failure, need close clinical follow-up that can not be provided in less acute setting. Quality Stroke Does the patient have a stroke diagnosis?: No VTE Prior VTE?: No VTE Risk Level:: Medical - moderate - high VTE Device Contraindication: Treatment Not Indicated VTE Drug Contraindication: N/A - Med Ordered
[2023-09-14 16:19] LABS: Glucose, Whole Blood 180 mg/dL (60-115)
[2023-09-14 21:16] LABS: Glucose, Whole Blood 178 mg/dL (60-115)
[2023-09-15] VITALS (7 sets, daily range): BP systolic 138–154; BP diastolic 63–76; PULSE 84–104; RESP 16–20; TEMP 36–36.4; O2SAT 93–96
[2023-09-15 02:24] LABS: Beta-2 Glycoprotein IgA <2.0 U/mL (<20.0); Beta-2 Glycoprotein IgG <2.0 U/mL (<20.0); Beta-2 Glycoprotein IgM <2.0 U/mL (<20.0)
[2023-09-15] MEDS: methylPREDNISolone Sod Succ 40 MG/ML VIAL IVPUSH ×4 (04:03→20:54)
[2023-09-15] MEDS: Lactated Ringers 1,000 ML 125 ML IVCONT ×2 (04:05→08:25)
[2023-09-15] MEDS: Pantoprazole Sodium 40 MG/10 ML VIAL IVPUSH ×2 (06:44→16:29)
[2023-09-15 07:46] LABS: Glucose, Whole Blood 151 mg/dL (60-115)
[2023-09-15 08:20] LABS: HBc Num1 0.04 S/CO (0.00-0.79); HBsAGNum1 0.18 S/CO (0.00-0.99); Hepatitis B Core Antibody Nonreactive (Nonreactive); Hepatitis B Surface Antigen Negative (Negative); ~HepC Num1 0.06 S/CO (0.00-0.79); ~Hepatitis A Antibody IgM Nonreactive (Nonreactive); ~Hepatitis B Surface Antibody NONREACTIVE (Nonreactive); ~Hepatitis C Antibody Nonreactive (Nonreactive)
[2023-09-15] MEDS: Metoprolol Succinate ER 50 MG TAB.ER.24H PO (08:23)
[2023-09-15] MEDS: Multivitamin TABLET 1 TAB PO (08:23)
[2023-09-15 08:24] LABS: Hepatitis A Antibody IgG Nonreactive (Nonreactive); ~Hepatitis A Antibody IgG 0.46 S/CO (0.00-0.99)
[2023-09-15] MEDS: Insulin Lispro 100 UNIT/ML 3 ML VIAL SUBCUT ×4 (08:24→20:55)
[2023-09-15] MEDS: Cholecalciferol (Vitamin D3) 25 MCG TABLET PO (08:24)
[2023-09-15 10:34] LABS: Hematocrit 25.9 % (37.0-47.0); Hemoglobin 8.8 g/dl (12.0-16.0); Mean Corpuscular Hemoglobin 27.6 pg (27.0-33.0); Mean Corpuscular Volume 81.2 fL (80.0-98.0); Mean Platelet Volume 9.8 fL (9.4-12.3); Red Blood Count 3.19 X10*6/uL (4.20-5.50); Red Cell Distribution Width 16.7 % (11.0-16.0); White Blood Count 3.7 X10*3/uL (4.8-10.8)
[2023-09-15 10:35] LABS: Platelet Count 43 X10*3/uL (160-400)
[2023-09-15 11:04] LABS: Alanine Aminotransferase 138 U/L (0-31); Albumin Level 2.7 g/dL (3.5-5.0); Alkaline Phosphatase 925 U/L (39-117); Anion Gap 18 (12-20); Aspartate Amino Transferase 101 U/L (5-31); Bilirubin Total 2.8 mg/dL (0.0-1.0); Blood Urea Nitrogen 24 mg/dL (9-16); C Reactive Protein 6.64 mg/dL (< or = 0.50); Calcium 8.6 mg/dL (8.4-10.2); Carbon Dioxide 23 mmol/L (22-29); Chloride 99 mmol/L (96-108); Creatinine Clr Calc Pharmacy 64.4; Estimated Glomerular Filt Rate > 60; Glucose Fasting 333 mg/dL (60-99); Potassium 4.2 mmol/L (3.3-5.1); Sodium 136 mmol/L (135-145); Total Protein 5.3 g/dL (6.5-8.0)
[2023-09-15 11:19] LABS: Erythrocyte Sedimentation Rate 42 MM/HR (0-20)
[2023-09-15 11:33] LABS: Glucose, Whole Blood 261 mg/dL (60-115)
[2023-09-15 11:44] LABS: Band Neutrophils Percent 14 % (3-5); Lymphocytes Absolute Manual 0.2 X10*3/uL (1.2-4.9); Lymphocytes Percent Manual 6 % (20-40); Metamyelocytes Absolute 0.1 X10*3/uL; Metamyelocytes Percent 2 %; Myelocytes Percent 1 %; Neutrophils Absolute Manual 3.4 X10*3/uL (2.0-8.3); Neutrophils Percent Manual 77 % (45-73); Nucleated Red Blood Cells 2 /100WBC (0-0)
[2023-09-15 11:47] LABS: Hypochromasia 1+ (5-14) /OIF; Platelet Estimate DECREASED (NORMAL); Platelet Morphology Comment NORMAL; RBC Morphology NOTED; Schistocytes 1+ (0-2) /OIF; Spherocytes 2+ (3-5) /OIF
--- NOTE | 2023-09-15 12:37 | HO.PM.IMPN ---
Subjective Subjective Date of Service: 09/15/23 Interval History: Feels much better; states unsteady on feet. PT recommending rehab Review of Systems Denies chest pain Denies shortness of breath Denies nausea vomiting diarrhea Denies fever chills Physical Exam Vital Signs: Vital Signs: Last Vital Signs Temp 97.6 F 09/15/23 11:38 Pulse 84 09/15/23 11:38 Resp 20 09/15/23 11:38 BP 143/64 H 09/15/23 11:38 Pulse Ox 96 09/15/23 11:38 O2 Del Method Room Air 09/15/23 11:38 O2 Flow Rate 1 09/13/23 22:58 BMI result Body Mass Index 23.1 Const: Other: Awake awake alert no acute distress Resp: Other: Clear to auscultation bilaterally no rales rhonchi or wheezes Cardio: Other: No S4; positive S1-S2; no S3 murmurs rubs or gallops GI: Other: Soft nontender nondistended normoactive bowel sounds Extrem: Other: No edema bilaterally Objective Data Active Medications Acetaminophen/Butalbital/Caffeine (Butalb/Acetamin/Caff 50/325/40 Tablet) 1 tab PO Q8H PRN PRN Reason: Headache Last Admin: 09/09/23 20:19 Dose: 1 tab Documented By: ALEC Benzocaine (Throat Lozenge, Medicated Lozenge) 1 lozenge MUCOUS MEM Q2H PRN PRN Reason: Sore Throat Last Admin: 09/02/23 10:52 Dose: 1 lozenge Documented By: FRANKY Docusate Sodium (Docusate Sodium 100 Mg Capsule) 100 mg PO BID JORGE Last Admin: 09/15/23 08:35 Dose: Not Given Documented By: MATHIEU Non-Admin Reason: Patient Refused Glucose (Glucose Gel 15 Gm Gel..Gram.) 15 gm PO Q15M PRN; Protocol PRN Reason: per Hypoglycemia Standing Ord. Hydroxyzine HCl (Hydroxyzine Hcl 10 Mg Tablet) 10 mg PO Q8H PRN PRN Reason: anxiety/restlessness Last Admin: 09/13/23 20:15 Dose: 10 mg Documented By: YUSUF Dextrose (D10) 250 mls @ 750 mls/hr IV Q15M PRN; Protocol PRN Reason: per Hypoglycemia Standing Ord. Lactated Ringer's (Lr) 1,000 mls @ 125 mls/hr IVCONT .Q8H [facility] Last Admin: 09/15/23 08:25 Dose: 125 mls/hr Documented By: MATHIEU Insulin Human Lispro (Insulin Lispro 100 Unit/Ml 3 Ml Vial) 0 unit SUBCUT QIDACHS [facility]; Protocol Last Admin: 09/15/23 11:36 Dose: 6 unit Documented By: MATHIEU Lidocaine (Lidocaine 4 % Patch Adh..Patch) 1 patch TRANSDERMA DAILY [facility]; Protocol Last Admin: 09/15/23 08:35 Dose: Not Given Documented By: MATHIEU Non-Admin Reason: Patient Refused Magnesium Hydroxide (Milk Of Magnesia 30 Ml Oral.Susp) 30 ml PO DAILY PRN PRN Reason: Constipation Last Admin: 09/02/23 19:01 Dose: 30 ml Documented By: FRANKY Methylprednisolone Sodium Succinate (Methylprednisolone Sod Succ 40 Mg/Ml Vial) 40 mg IVPUSH Q6H [facility] Last Admin: 09/15/23 09:33 Dose: 40 mg Documented By: MATHIEU Metoprolol Succinate (Metoprolol Succinate Er 50 Mg Tab.Er.24h) 50 mg PO DAILY [facility]; Protocol Last Admin: 09/15/23 08:23 Dose: 50 mg Documented By: MATHIEU Multivitamins/Vitamin C (Multivitamin Tablet) 1 tab PO DAILY [facility] Last Admin: 09/15/23 08:23 Dose: 1 tab Documented By: MATHIEU Nitroglycerin (Nitroglycerin 0.4 Mg Tab.Subl) 0.4 mg SUBLINGUAL Q5MX3 PRN PRN Reason: Chest Pain Last Admin: 09/01/23 04:43 Dose: 0.4 mg Documented By: ANITHA Ondansetron HCl (Ondansetron Hcl 4 Mg/2 Ml Vial) 4 mg IVPUSH Q8H PRN PRN Reason: Nausea and Vomiting Last Admin: 09/10/23 22:26 Dose: 4 mg Documented By: JACKI Pantoprazole Sodium (Pantoprazole Sodium 40 Mg/10 Ml Vial) 40 mg IVPUSH BID@0630,1630 [facility] Last Admin: 09/15/23 06:44 Dose: 40 mg Documented By: TIFFANIE Polyethylene Glycol (Polyethylene Glycol 3350 17 Gm Powd.Pack) 17 gm PO DAILY [facility] Last Admin: 09/15/23 08:35 Dose: Not Given Documented By: MATHIEU Non-Admin Reason: Patient Refused Sodium Biphosphate/Sodium Phosphate (Sodium Phosphate,[place]-Dibasic 133 Ml Enema) 133 ml CA ONCE PRN PRN Reason: Once Last Admin: 09/04/23 12:14 Dose: 133 ml Documented By: IQRA Sodium Chloride (0.9 % Sodium Chloride Flush 3 Ml Syringe) 3 ml IVFLUSH QSHIFT [facility] Last Admin: 09/15/23 11:49 Dose: Not Given Documented By: MATHIEU Non-Admin Reason: Previously Administered Vitamin D (Cholecalciferol (Vitamin D3) 25 Mcg Tablet) 25 mcg PO DAILY [facility] Last Admin: 09/15/23 08:24 Dose: 25 mcg Documented By: MATHIEU Labs 09/15/23 10:24 09/15/23 10:24 Labs: Laboratory Results - last 24 hr 09/08/23 09/12/23 09/14/23 06:42 15:43 16:08 MCV MCH MCHC RDW Plt Count MPV Immature Gran % (Auto) Neut % (Auto) Lymph % (Auto) [place] % (Auto) Eos % (Auto) Baso % (Auto) Lymph # (Auto) [place] # (Auto) Eos # (Auto) Baso # (Auto) Abs Immat Gran (auto) Absolute Neuts (auto) Absolute Nucleated RBC Nucleated RBC % (auto) Neutrophils % (Manual) Band Neutrophils % Lymphocytes % (Manual) Metamyelocytes % Myelocytes % Abs Neuts (Manual) Lymphocytes # (Manual) Metamyelocytes # Nucleated RBCs Platelet Estimate Plt Morphology Comment RBC Morphology Hypochromasia Spherocytes Schistocytes ESR Anion Gap Estim Creat Clear Calc Estimated GFR POC Glucose 180 H Fasting Glucose Calcium Total Bilirubin AST ALT Alkaline Phosphatase C-Reactive Protein Total Protein Albumin Beta-2-GPI IgG Ab <2.0 Beta-2-GPI IgA Ab <2.0 Beta-2-GPI IgM Ab <2.0 Hepatitis A IgG Ab Nonreactive Hepatitis A IgM Ab Nonreactive Hep Bs Antigen Negative Hep Bs Antibody NONREACTIVE Hep B Core Total Ab Nonreactive Hepatitis C Ab (EIA) Nonreactive 09/14/23 09/15/23 09/15/23 21:07 07:03 10:24 MCV 81.2 MCH 27.6 MCHC 34.0 RDW 16.7 H Plt Count 43 L D MPV 9.8 Immature Gran % (Auto) Cancelled Neut % (Auto) Cancelled Lymph % (Auto) Cancelled [place] % (Auto) Cancelled Eos % (Auto) Cancelled Baso % (Auto) Cancelled Lymph # (Auto) Cancelled [place] # (Auto) Cancelled Eos # (Auto) Cancelled Baso # (Auto) Cancelled Abs Immat Gran (auto) Cancelled Absolute Neuts (auto) Cancelled Absolute Nucleated RBC 0.110 H Nucleated RBC % (auto) 3.0 H Neutrophils % (Manual) 77 H Band Neutrophils % 14 H Lymphocytes % (Manual) 6 L Metamyelocytes % 2 Myelocytes % 1 Abs Neuts (Manual) 3.4 Lymphocytes # (Manual) 0.2 L Metamyelocytes # 0.1 Nucleated RBCs 2 H Platelet Estimate DECREASED Plt Morphology Comment NORMAL RBC Morphology NOTED Hypochromasia 1+ (5-14) Spherocytes 2+ (3-5) Schistocytes 1+ (0-2) ESR 42 H Anion Gap 18 Estim Creat Clear Calc 64.4 Estimated GFR > 60 POC Glucose 178 H 151 H Fasting Glucose 333 H Calcium 8.6 Total Bilirubin 2.8 H AST 101 H ALT 138 H Alkaline Phosphatase 925 H C-Reactive Protein 6.64 H Total Protein 5.3 L Albumin 2.7 L Beta-2-GPI IgG Ab Beta-2-GPI IgA Ab Beta-2-GPI IgM Ab Hepatitis A IgG Ab Hepatitis A IgM Ab Hep Bs Antigen Hep Bs Antibody Hep B Core Total Ab Hepatitis C Ab (EIA) 09/15/23 11:23 MCV MCH MCHC RDW Plt Count MPV Immature Gran % (Auto) Neut % (Auto) Lymph % (Auto) [place] % (Auto) Eos % (Auto) Baso % (Auto) Lymph # (Auto) [place] # (Auto) Eos # (Auto) Baso # (Auto) Abs Immat Gran (auto) Absolute Neuts (auto) Absolute Nucleated RBC Nucleated RBC % (auto) Neutrophils % (Manual) Band Neutrophils % Lymphocytes % (Manual) Metamyelocytes % Myelocytes % Abs Neuts (Manual) Lymphocytes # (Manual) Metamyelocytes # Nucleated RBCs Platelet Estimate Plt Morphology Comment RBC Morphology Hypochromasia Spherocytes Schistocytes ESR Anion Gap Estim Creat Clear Calc Estimated GFR POC Glucose 261 H Fasting Glucose Calcium Total Bilirubin AST ALT Alkaline Phosphatase C-Reactive Protein Total Protein Albumin Beta-2-GPI IgG Ab Beta-2-GPI IgA Ab Beta-2-GPI IgM Ab Hepatitis A IgG Ab Hepatitis A IgM Ab Hep Bs Antigen Hep Bs Antibody Hep B Core Total Ab Hepatitis C Ab (EIA) Assessment and Plan (1) Drug induced liver disease: Status: Acute Plan 73 year old female with history of type 2 diabetes, hld, hx breast cancer 1990s 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 -Received 1 u prbc (09/06) , hematocrit improved and remained stable -case discussed with Dr. Vasquez, she feels anemia and thrombocytopenia probably manifestation of liver disease no evidence of DIC or myelophthisic process -count stable; follow daily... Responding to therapies -outpatient follow-up 3.DM type 2 diabetes with hyperglycemia: -Stable blood sugars,hgb a1c 6.9% -lispro correctional scale compression boots full code. Ongoing hospitalization need: Multifactorial active issue are elevated liver functions, worsening anemia and thrombocytopenia requiring prn transfusion, acute hypoxemic respiratory failure, need close clinical follow-up that can not be provided in less acute setting. Quality Stroke Does the patient have a stroke diagnosis?: No VTE Prior VTE?: No VTE Risk Level:: Medical - moderate - high VTE Device Contraindication: Treatment Not Indicated VTE Drug Contraindication: N/A - Med Ordered
--- NOTE | 2023-09-15 14:38 | MHC.CM.PN ---
Addendum entered by Lizette Wooten 09/15/23 15:51: [facility] declined the patient. She accepts the bed offer from [facility]. The facility has started the authorization process. [facility] [place] via BLS. Original Note: A PT eval has been done. The recommendation is STR. ![facility] choice [facility] can not accept. Additional preferreces were obtained and referrals sent. A bed offer has been received fro [facility]. [facility] has not responded yet. Pt choice pending [facility] offer. CM will follow.
[2023-09-15 16:17] LABS: Glucose, Whole Blood 212 mg/dL (60-115)
--- NOTE | 2023-09-15 16:17 | P.PNGI_ITS ---
Subjective Subjective Date of Service: 09/15/23 Interval History: Reports feeling better with improving appetite and strength. Reports normal BM's without melena. Denies abdominal pain, N/V. Critical Care Time (minutes): 0 Physical Exam 2 Vital Signs: Vital Signs: Last Vital Signs Temp 97.6 F 09/15/23 14:56 Pulse 88 09/15/23 14:56 Resp 20 09/15/23 14:56 BP 141/66 H 09/15/23 14:56 Pulse Ox 96 09/15/23 14:56 O2 Del Method Room Air 09/15/23 14:56 O2 Flow Rate 1 09/13/23 22:58 BMI result Body Mass Index 23.1 Const: General: cooperative, healthy appearing, comfortable, no acute distress, well developed, alert and awake Eyes: Sclerae: sclerae normal GI: Other: Abd-Soft, NT, Nondistended Extrem: Other: No edema Objective Data Labs 09/15/23 10:24 09/15/23 10:24 Labs: Laboratory Results - last 24 hr 09/08/23 09/12/23 09/14/23 06:42 15:43 16:08 WBC RBC Hgb Hct MCV MCH MCHC RDW Plt Count MPV Immature Gran % (Auto) Neut % (Auto) Lymph % (Auto) [place] % (Auto) Eos % (Auto) Baso % (Auto) Lymph # (Auto) [place] # (Auto) Eos # (Auto) Baso # (Auto) Abs Immat Gran (auto) Absolute Neuts (auto) Absolute Nucleated RBC Nucleated RBC % (auto) Neutrophils % (Manual) Band Neutrophils % Lymphocytes % (Manual) Metamyelocytes % Myelocytes % Abs Neuts (Manual) Lymphocytes # (Manual) Metamyelocytes # Nucleated RBCs Platelet Estimate Plt Morphology Comment RBC Morphology Hypochromasia Spherocytes Schistocytes ESR Sodium Potassium Chloride Carbon Dioxide Anion Gap BUN Creatinine Estim Creat Clear Calc Estimated GFR POC Glucose 180 H Fasting Glucose Calcium Total Bilirubin AST ALT Alkaline Phosphatase C-Reactive Protein Total Protein Albumin Beta-2-GPI IgG Ab <2.0 Beta-2-GPI IgA Ab <2.0 Beta-2-GPI IgM Ab <2.0 Hepatitis A IgG Ab Nonreactive Hepatitis A IgM Ab Nonreactive Hep Bs Antigen Negative Hep Bs Antibody NONREACTIVE Hep B Core Total Ab Nonreactive Hepatitis C Ab (EIA) Nonreactive 0609/15/23 09/15/23 21:07 07:03 10:24 WBC 3.7 L RBC 3.19 L Hgb 8.8 L Hct 25.9 L MCV 81.2 MCH 27.6 MCHC 34.0 RDW 16.7 H Plt Count 43 L D MPV 9.8 Immature Gran % (Auto) Cancelled Neut % (Auto) Cancelled Lymph % (Auto) Cancelled [place] % (Auto) Cancelled Eos % (Auto) Cancelled Baso % (Auto) Cancelled Lymph # (Auto) Cancelled [place] # (Auto) Cancelled Eos # (Auto) Cancelled Baso # (Auto) Cancelled Abs Immat Gran (auto) Cancelled Absolute Neuts (auto) Cancelled Absolute Nucleated RBC 0.110 H Nucleated RBC % (auto) 3.0 H Neutrophils % (Manual) 77 H Band Neutrophils % 14 H Lymphocytes % (Manual) 6 L Metamyelocytes % 2 Myelocytes % 1 Abs Neuts (Manual) 3.4 Lymphocytes # (Manual) 0.2 L Metamyelocytes # 0.1 Nucleated RBCs 2 H Platelet Estimate DECREASED Plt Morphology Comment NORMAL RBC Morphology NOTED Hypochromasia 1+ (5-14) Spherocytes 2+ (3-5) Schistocytes 1+ (0-2) ESR 42 H Sodium 136 Potassium 4.2 Chloride 99 Carbon Dioxide 23 Anion Gap 18 BUN 24 H Creatinine 0.72 Estim Creat Clear Calc 64.4 Estimated GFR > 60 POC Glucose 178 H 151 H Fasting Glucose 333 H Calcium 8.6 Total Bilirubin 2.8 H AST 101 H ALT 138 H Alkaline Phosphatase 925 H C-Reactive Protein 6.64 H Total Protein 5.3 L Albumin 2.7 L Beta-2-GPI IgG Ab Beta-2-GPI IgA Ab Beta-2-GPI IgM Ab Hepatitis A IgG Ab Hepatitis A IgM Ab Hep Bs Antigen Hep Bs Antibody Hep B Core Total Ab Hepatitis C Ab (EIA) 09/15/23 09/15/23 11:23 16:05 WBC RBC Hgb Hct MCV MCH MCHC RDW Plt Count MPV Immature Gran % (Auto) Neut % (Auto) Lymph % (Auto) [place] % (Auto) Eos % (Auto) Baso % (Auto) Lymph # (Auto) [place] # (Auto) Eos # (Auto) Baso # (Auto) Abs Immat Gran (auto) Absolute Neuts (auto) Absolute Nucleated RBC Nucleated RBC % (auto) Neutrophils % (Manual) Band Neutrophils % Lymphocytes % (Manual) Metamyelocytes % Myelocytes % Abs Neuts (Manual) Lymphocytes # (Manual) Metamyelocytes # Nucleated RBCs Platelet Estimate Plt Morphology Comment RBC Morphology Hypochromasia Spherocytes Schistocytes ESR Sodium Potassium Chloride Carbon Dioxide Anion Gap BUN Creatinine Estim Creat Clear Calc Estimated GFR POC Glucose 261 H 212 H Fasting Glucose Calcium Total Bilirubin AST ALT Alkaline Phosphatase C-Reactive Protein Total Protein Albumin Beta-2-GPI IgG Ab Beta-2-GPI IgA Ab Beta-2-GPI IgM Ab Hepatitis A IgG Ab Hepatitis A IgM Ab Hep Bs Antigen Hep Bs Antibody Hep B Core Total Ab Hepatitis C Ab (EIA) Microbiology Microbiology Results: Microbiology 09/08/23 00:47 Blood - Venous Blood Culture - Final No growth after 5 days. 09/08/23 00:47 Blood - Venous Blood Culture - Final No growth after 5 days. 09/03/23 13:20 Blood - Venous Blood Culture - Final No growth after 5 days. 09/03/23 13:20 Blood - Venous Blood Culture - Final No growth after 5 days. 09/05/23 01:40 Urine clean catch Urine Culture - Final Corynebacterium species Procedures Date of Service Date of Service: 09/15/23 Progress Note: A&P Assessment and plan (1) Drug induced liver disease: Status: Acute (2) Abnormal LFTs: Status: Acute (3) Anemia: Status: Acute (4) Thrombocytopenia: Status: Acute Assessment and Plan: Imp/Recs: Overall doing better from a symptomatic standpoint in regard to a presumed drug-induced(?Metformin) hepatitis and pancytopenia. Her constitutional symptoms are better, which I'm sure is at least partially related to the steroids as well. However, her WBC's/Hgb/Platelets are slowly improving, the ESR and CRP are decreasing significantly, and the TBili has declined. She has had no further reported melena. At this point I will switch her to an oral PPI. I would recommend a slow taper of prednisone by 5mg every 5 days while following her LFT's, CBC's, and blood sugars closely. She should avoid any statins and the Metformin class of diabetes medication. Please instruct her rehab facility to forward me results of her labs as well. I can follow along as an outpatient as well. D/W patient in detail and she is comfortable with this plan. Thanks Time Spent With Patient Time: Total time managing care of this patient today ____ minutes. Quality Stroke Does the patient have a stroke diagnosis?: No VTE Prior VTE?: No VTE Risk Level:: Medical - moderate - high VTE Device Contraindication: Treatment Not Indicated VTE Drug Contraindication: N/A - Med Ordered
[2023-09-15 19:45] LABS: Glucose, Whole Blood 228 mg/dL (60-115)
[2023-09-15] MEDS: hydrOXYzine HCL 10 MG TABLET PO (20:52)
[2023-09-16] VITALS (10 sets, daily range): BP systolic 140–155; BP diastolic 64–70; PULSE 80–96; RESP 16–20; TEMP 36.1–36.5; O2SAT 95–98
[2023-09-16] MEDS: methylPREDNISolone Sod Succ 40 MG/ML VIAL IVPUSH ×3 (03:28→16:31)
[2023-09-16] MEDS: Omeprazole 20 MG CAPSULE.DR PO (05:38)
[2023-09-16 07:32] LABS: Glucose, Whole Blood 140 mg/dL (60-115)
[2023-09-16 08:11] LABS: Hemoglobin 8.5 g/dl (12.0-16.0); Mean Corpuscular Hemoglobin 27.8 pg (27.0-33.0); Mean Corpuscular Volume 81.7 fL (80.0-98.0); NRBC Pct Auto 3.9 /100WBC (0.0-0.2); Platelet Count 51 X10*3/uL (160-400); Red Blood Count 3.06 X10*6/uL (4.20-5.50); White Blood Count 4.4 X10*3/uL (4.8-10.8)
[2023-09-16] MEDS: Multivitamin TABLET 1 TAB PO (08:17)
[2023-09-16] MEDS: Metoprolol Succinate ER 50 MG TAB.ER.24H PO (08:17)
[2023-09-16] MEDS: Cholecalciferol (Vitamin D3) 25 MCG TABLET PO (08:17)
[2023-09-16] MEDS: 0.9 % Sodium Chloride Flush 3 ML SYRINGE IVFLUSH ×2 (08:18→16:31)
[2023-09-16 08:22] LABS: Alanine Aminotransferase 141 U/L (0-31); Albumin Level 2.7 g/dL (3.5-5.0); Alkaline Phosphatase 841 U/L (39-117); Anion Gap 12 (12-20); Aspartate Amino Transferase 91 U/L (5-31); Bilirubin Total 2.8 mg/dL (0.0-1.0); Blood Urea Nitrogen 23 mg/dL (9-16); Calcium 8.9 mg/dL (8.4-10.2); Carbon Dioxide 27 mmol/L (22-29); Chloride 103 mmol/L (96-108); Creatinine Clr Calc Pharmacy 73.7; Estimated Glomerular Filt Rate > 60; Glucose Fasting 134 mg/dL (60-99); Sodium 138 mmol/L (135-145); Total Protein 5.3 g/dL (6.5-8.0)
[2023-09-16 09:06] LABS: Band Neutrophils Percent 12 % (3-5); Lymphocytes Absolute Manual 0.5 X10*3/uL (1.2-4.9); Lymphocytes Percent Manual 11 % (20-40); Metamyelocytes Absolute 0.1 X10*3/uL; Metamyelocytes Percent 2 %; Monocytes Absolute Manual 0.2 X10*3/uL (0.1-1.2); Monocytes Percent Manual 4 % (2-11); Neutrophils Absolute Manual 3.7 X10*3/uL (2.0-8.3); Neutrophils Percent Manual 71 % (45-73); Nucleated Red Blood Cells 3 /100WBC (0-0)
[2023-09-16 09:08] LABS: Microcytosis 1+ (5-14) /OIF; RBC Morphology NOTED
[2023-09-16 09:09] LABS: Hypochromasia 1+ (5-14) /OIF; Spherocytes 1+ (0-2) /OIF
[2023-09-16 09:11] LABS: Schistocytes 1+ (0-2) /OIF
[2023-09-16 09:14] LABS: Platelet Estimate DECREASED (NORMAL); Platelet Morphology Comment NORMAL; Polychromasia 1+ (0-2) /OIF
[2023-09-16 11:16] LABS: Glucose, Whole Blood 260 mg/dL (60-115)
[2023-09-16] MEDS: Insulin Lispro 100 UNIT/ML 3 ML VIAL SUBCUT ×2 (11:49→16:31)
--- NOTE | 2023-09-16 14:24 | PM.DS ---
DS: Providers Provider Date of Service: 09/16/23 Date of admission: 09/02/23 09:55 Primary care physician: Li Whitehead MD Consults: 08/31/23 12:07 Consult to Cardiology Routine Consulting Provider: [facility] Reason for consultation: chest pain 09/01/23 12:13 Consult to Hematology / Oncology Routine Consulting Provider: Richelle Vasquez Reason for consultation: Abnormal cell lines of unclear etiology 09/02/23 09:41 Consult to Gastroenterology Routine Consulting Provider: [facility] Reason for consultation: Elevated lfts Has provider been notified: No 09/04/23 09:40 Consult to Nephrology Routine Consulting Provider: [facility] Reason for consultation: Question of nephritis on ct scan Has provider been notified: No 09/08/23 08:24 Consult to Infectious Diseases Routine Consulting Provider: [facility] Reason for consultation: Pancytopenia,worsening Lft , fever Has provider been notified: No DS: Diagnosis Discharge Diagnosis (1) Drug induced liver disease: Status: Acute (2) Abnormal LFTs: Status: Acute (3) Anemia: Status: Acute (4) Thrombocytopenia: Status: Acute DS: Summary Hospital Course Hospital Course: 73 year old female with history of type 2 diabetes, hld, hx breast cancer 1990s presented to the ED earlier today for evaluation of chest pain. She states for the last 2-3 weeks she has been waking up with lightheadedness and palpitations, takes her HR and it is in the 130s. She sits to rest with resolution of symptoms. With the palpitations and lightheadedness she also reports shortness of breath. She has also had a constant sharp diffuse headache without any visual changes. She states yesterday while walking developed near syncope and briefly saw black and lowered herself to the ground. No head injury. She again rested and felt better. This morning around 1am she developed sharp midsternal chest pain radiating through to the back with associated palpitations around 1am last night. No associated diaphoresis, n/v, sob, lightheadedness at the time. Pain was a 10/10 and reports it is still the same despite 325mg asa, nitro, and morphine. She is endorsing anxiety at this time, but states was not prior. Reports similar symptoms have happened in the past dating back 5 years. Reports unintentional weight loss x 2 weeks with new diagnosis of type 2 diabetes and was started on metformin. Her daughter reports she has only been eating about 300-400 calories a day and does not know what to eat with the diabetes. Has also been drinking only 2 cups of water per day. No fevers, chills, st, congestion, abd pain, n/v/d, urinary symptoms, cough. No recent illness. Since arrival has been tachycardic and tachypneic. Mild leukocytosis of 11.0. Normocytic anemia with h/h 10.3/29.9%. Renal fx normal, lytes normal except for Na 134, Ca 10.7. Glucose 133. Initial trop 17.3, repeat 24.8. EKG shows sinus tach, no acute ischemic changes. Head CT negative for acute intracranial abnormality. CTA chest negative for PE, shows pleural parenchymal irregularity along the anterior/anterolateral aspect of the ELISA with punctate calcifications with bilateral pulmonary nodules. In the ED given nitro, morphine, ns. Hospital Course Patient was admitted to telemetry where monitor failed to demonstrate a pathological rhythms. Seen by Cardiology and a cardiac event was ruled out. Patient was seen in consultation by Gastroenterology and Hematology for abnormal liver function tests and pancytopenia. Autoimmune panel was drawn and was unremarkable. Ultimately patient underwent a liver biopsy which demonstrated medication induced hepatitis. She was started on steroids and over the next several days liver function tests improved as well as pancytopenia. Case was discussed with GI who recommended prednisone taper; 40 mg daily x7 days followed by 35 mg daily x7 days followed by 30 mg daily x7 days followed by 25 mg daily x7 days followed by 20 mg daily x7 days followed by 15 mg daily x7 days followed by 10 mg daily x7 days followed by 5 mg daily x7 days. Dr. Gould's office needs to be notified and an appointment set up for follow-up within 2 weeks. Patient needs CBC and chemistry profile every 3 days until both pancytopenia and liver function tests have normalized. At this point she is medically acceptable to transfer to short-term rehab and complete her prednisone taper as ordered Time Attestation Discharge Coordination Time (in mins): 35 Quality: Safe Use of Opioids Does Pt have an Active Cancer Diagnosis on the Problem List?: No Quality: Stroke Does the patient have a stroke diagnosis?: No Physical Exam Vital Signs: Vital Signs: Last Vital Signs Temp 97.4 F 09/16/23 11:50 Pulse 84 09/16/23 11:50 Resp 18 09/16/23 11:50 BP 140/64 H 09/16/23 11:50 Pulse Ox 96 09/16/23 11:50 O2 Del Method Room Air 09/16/23 11:50 O2 Flow Rate 1 09/13/23 22:58 BMI result Body Mass Index 23.1 Const: Other: Awake awake alert no acute distress Resp: Other: Clear to auscultation bilaterally no rales rhonchi or wheezes Cardio: Other: No S4; positive S1-S2; no S3 murmurs rubs or gallops GI: Other: Soft nontender nondistended normoactive bowel sounds Extrem: Other: No edema bilaterally DS: Data Data Completed and Pending Completed studies during hospitalization [Text1]: Pending at discharge 09/08/23 13:11 Surgical Path [Surgical] [PTH] Stat Labs on day of discharge: Laboratory Results - last 24 hr 09/07/23 09/15/23 09/15/23 05:40 16:05 19:39 WBC RBC Hgb Hct MCV MCH MCHC RDW Plt Count MPV Immature Gran % (Auto) Neut % (Auto) Lymph % (Auto) [place] % (Auto) Eos % (Auto) Baso % (Auto) Lymph # (Auto) [place] # (Auto) Eos # (Auto) Baso # (Auto) Abs Immat Gran (auto) Absolute Neuts (auto) Absolute Nucleated RBC Nucleated RBC % (auto) Neutrophils % (Manual) Band Neutrophils % Lymphocytes % (Manual) Monocytes % (Manual) Metamyelocytes % Abs Neuts (Manual) Lymphocytes # (Manual) Monocytes # (Manual) Metamyelocytes # Nucleated RBCs Platelet Estimate Plt Morphology Comment RBC Morphology Polychromasia Hypochromasia Microcytosis Spherocytes Schistocytes LA Thrombin Time TNP dRVVT Confirm Interp TNP dRVVT Mixing Study TNP dRVVT Mix Interpret TNP Hexagon Phase Neutraliz TNP Sodium Potassium Chloride Carbon Dioxide Anion Gap BUN Creatinine Estim Creat Clear Calc Estimated GFR POC Glucose 212 H 228 H Fasting Glucose Calcium Total Bilirubin AST ALT Alkaline Phosphatase Total Protein Albumin 09/16/23 09/16/23 09/16/23 07:18 07:23 10:59 WBC 4.4 L RBC 3.06 L Hgb 8.5 L Hct 25.0 L MCV 81.7 MCH 27.8 MCHC 34.0 RDW 17.0 H Plt Count 51 L MPV 10.0 Immature Gran % (Auto) Cancelled Neut % (Auto) Cancelled Lymph % (Auto) Cancelled [place] % (Auto) Cancelled Eos % (Auto) Cancelled Baso % (Auto) Cancelled Lymph # (Auto) Cancelled [place] # (Auto) Cancelled Eos # (Auto) Cancelled Baso # (Auto) Cancelled Abs Immat Gran (auto) Cancelled Absolute Neuts (auto) Cancelled Absolute Nucleated RBC 0.170 H Nucleated RBC % (auto) 3.9 H Neutrophils % (Manual) 71 Band Neutrophils % 12 H Lymphocytes % (Manual) 11 L Monocytes % (Manual) 4 Metamyelocytes % 2 Abs Neuts (Manual) 3.7 Lymphocytes # (Manual) 0.5 L Monocytes # (Manual) 0.2 Metamyelocytes # 0.1 Nucleated RBCs 3 H Platelet Estimate DECREASED Plt Morphology Comment NORMAL RBC Morphology NOTED Polychromasia 1+ (0-2) Hypochromasia 1+ (5-14) Microcytosis 1+ (5-14) Spherocytes 1+ (0-2) Schistocytes 1+ (0-2) LA Thrombin Time dRVVT Confirm Interp dRVVT Mixing Study dRVVT Mix Interpret Hexagon Phase Neutraliz Sodium 138 Potassium 4.0 Chloride 103 Carbon Dioxide 27 Anion Gap 12 BUN 23 H Creatinine 0.63 Estim Creat Clear Calc 73.7 Estimated GFR > 60 POC Glucose 140 H 260 H Fasting Glucose 134 H Calcium 8.9 Total Bilirubin 2.8 H AST 91 H ALT 141 H Alkaline Phosphatase 841 H Total Protein 5.3 L Albumin 2.7 L Discharge Plan Discharge Anticipated Discharge Date/Time: 09/16/23 14:19 Patient Disposition: Xfer [facility] Discharge Diagnosis: Drug-induced liver disease Referrals: [facility] [Outside] - 1 Week Li Ray MD [Primary Care Provider] - 1 Week Discharge Medications: New omeprazole 20 mg Capsule,Delayed Release(Dr/Ec) 20 mg PO DAILY@0630 Qty: 30 0RF prednisone 20 mg tablet 40 mg PO DAILY Qty: 14 0RF Continued multivitamin Tablet 1 tab PO DAILY cholecalciferol (vitamin D3) [Vitamin D3] 25 mcg (1,000 unit) Tablet 25 mcg PO DAILY aspirin [Ecotrin Low Strength] 81 mg tablet,delayed release (DR/EC) 81 mg PO DAILY Qty: 30 0RF metoprolol succinate 50 mg tablet extended release 24 hr 50 mg PO DAILY (DME) blood-glucose meter [FreeStyle Lite Meter] Kit See Rx Instructions .Route Qty: 1 0RF Rx Instructions: As directed (DME) FreeStyle Lite Strips Strip See Rx Instructions .Route Qty: 100 3RF Rx Instructions: Use 1 test strip once a day (DME) lancets [FreeStyle Lancets] 28 gauge misc See Rx Instructions .Route Qty: 100 3RF Rx Instructions: Use 1 lancet once a day Discontinued lovastatin 20 mg tablet 20 mg PO DAILY metformin 500 mg tablet 500 mg PO BID 90 Days Qty: 180 1RF Discharge Orders: Discharge Order (Routine); Ordered 09/16/23 Ordered By: Mayank Rockwell Diet: Advance to usual diet Activity on Discharge: As tolerated Stand Alone Forms: Patient Portal Discharge page Print Language: Italian Care Plan Goals: Lovastatin and metformin have been DC. Sugars can be addressed once liver functions returned to normal Health Concerns: Prednisone taper. 40 mg daily for 7 days, 35 mg daily for 7 days, 30 mg daily for 7 days, 25 mg daily for 7 days, 20 mg daily x7 days, 15 mg daily x7 days, 10 mg daily x7 days, 5 mg daily x7 days then DC. Need to follow up with Dr. Gould upon discharge. His office will call with appointment Plan of Treatment: Will need CBC and chemistry profile every 3 days until both CBC and liver profile have stabilized Assessment: See discharge summary
--- NOTE | 2023-09-16 14:46 | MHC.CM.PN ---
Patient has been medically cleared for dc to SNF/STR today. [facility] today at 7:30 PM, via [facility]. CM met with Patient at bedside and addressed IMM with her (original was given to Patient and a copy has been placed on the chart). CM assisted Patient with the completion of a HCP; she has named her Daughter/Blanca and her /Chris as her Agents.
[2023-09-16 16:25] LABS: Glucose, Whole Blood 194 mg/dL (60-115)
--- NOTE | 2023-09-17 10:15 | MHC.CM.PN ---
LATE ENTRY: It was Patient's preference yesterday to inform her family of the dc plan;CM did offer to call family on Patient's behalf, but she declined.
== END 2023-09-16 18:25 | disposition skilled nursing facility (03) | DRG 441 ==
LOC: HO.ED 11:28 → HO.EDOVER 12:31 → HO.IMC 09-01 07:27
PROVIDERS: Hospitalist; Internal Medicine; Registered Nurse Emergency; Student in an Organized Health Care Education/Training Program; Admitting Provider Physician Assistant; Emergency Provider Emergency Medicine; PCP Internal Medicine; Visit Provider Hospitalist
DX: K71.6 Toxic liver disease with hepatitis, not elsewhere classified (principal); J96.01 Acute respiratory failure with hypoxia; D61.818 Other pancytopenia; T38.3X5A Adverse effect of insulin and oral hypoglycemic [antidiabetic] drugs, initial encounter; G44.229 Chronic tension-type headache, not intractable; E78.5 Hyperlipidemia, unspecified; K76.0 Fatty (change of) liver, not elsewhere classified; I95.1 Orthostatic hypotension; R91.8 Other nonspecific abnormal finding of lung field; F42.9 Obsessive-compulsive disorder, unspecified; E11.65 Type 2 diabetes mellitus with hyperglycemia; Z20.822 Contact with and (suspected) exposure to COVID-19; Z85.3 Personal history of malignant neoplasm of breast; Z79.82 Long term (current) use of aspirin; Z79.899 Other long term (current) drug therapy
CPT/HCPCS: 36415; 36600; 38221; 47000; 70450; 70496; 70498; 70551; 70552; 71045; 71250; 71275; 74177; 74183; 76700; 76705; 76942; 78306; 80048; 80053; 80076; 81001; 81003; 81374; 82140; 82164; 82248; 82272; 82550; 82570; 82607; 82728; 82746; 82784; 82803; 82947; 82977; 83010; 83540; 83605; 83615; 83690; 83880; 84100; 84145; 84156; 84443; 84484; 84550; 85007; 85014; 85018; 85025; 85027; 85045; 85049; 85379; 85384; 85597; 85598; 85610; 85613; 85652; 85730; 86015; 86021; 86038; 86140; 86146; 86160; 86200; 86225; 86235; 86300; 86334; 86381; 86431; 86704; 86706; 86708; 86709; 86803; 86812; 86850; 86900; 86901; 86923; 87040; 87086; 87340; 87389; 87468; 87469; 87478; 87484; 87633; 87635; 87798; 88184; 88185; 88237; 88264; 88305; 88307; 88311; 88312; 88313; 88341; 88342; 92526; 92610; 92950; 93005; 93306; 93356; 93975; 97162; 99152; 99285; A9503; A9585; C1758; C9113; J0456; J0613; J0696; J1100; J1170; J1650; J1885; J1940; J1956; J2270; J2405; J2783; J2919; J3430; J7120; J8540; P9016; P9047; P9073; Q9957; Q9967

== ENCOUNTER → 2023-08-31 01:47 | Outpatient (BNV) | payer MEDICARE, SELFPAY | PROVIDERS: Admitting Provider Physician Assistant; Emergency Provider Emergency Medicine; Visit Provider Internal Medicine Cardiovascular Disease | DX: R07.9 Chest pain, unspecified (principal); R00.0 Tachycardia, unspecified; R94.31 Abnormal electrocardiogram [ECG] [EKG] | CPT/HCPCS: 93010 ==

== ENCOUNTER 2023-08-31 12:07 | Outpatient (BNV) | payer MEDICARE, SELFPAY | END 2023-09-01 07:00 | PROVIDERS: Admitting Provider Physician Assistant; Emergency Provider Emergency Medicine; PCP Internal Medicine; Visit Provider Internal Medicine | DX: R00.0 Tachycardia, unspecified (principal); R94.31 Abnormal electrocardiogram [ECG] [EKG]; I34.0 Nonrheumatic mitral (valve) insufficiency | CPT/HCPCS: 93010; 93306; 93356 ==

== ENCOUNTER → 2023-08-31 12:07 | Outpatient (BNV) | payer MEDICARE, SELFPAY | PROVIDERS: Admitting Provider Physician Assistant; Emergency Provider Emergency Medicine; PCP Internal Medicine; Visit Provider Physician Assistant | DX: K71.9 Toxic liver disease, unspecified (principal) | CPT/HCPCS: 99223; 99232; 99233; 99239 ==

== ENCOUNTER → 2023-08-31 12:07 | Outpatient (BNV) | payer MEDICARE, SELFPAY | PROVIDERS: Admitting Provider Physician Assistant; Emergency Provider Emergency Medicine; Visit Provider Internal Medicine | DX: R00.0 Tachycardia, unspecified (principal); R07.9 Chest pain, unspecified; D64.9 Anemia, unspecified; R79.89 Other specified abnormal findings of blood chemistry | CPT/HCPCS: 99223; 99233 ==

== ENCOUNTER 2023-09-02 09:55 | Outpatient (BNV) | payer MEDICARE, SELFPAY | END 2023-09-05 08:42 | PROVIDERS: Admitting Provider Physician Assistant; Emergency Provider Emergency Medicine; PCP Internal Medicine; Visit Provider Internal Medicine | DX: R00.0 Tachycardia, unspecified (principal); R94.31 Abnormal electrocardiogram [ECG] [EKG] | CPT/HCPCS: 93010 ==

== ENCOUNTER 2023-09-02 09:55 | Outpatient (BNV) | payer MEDICARE, SELFPAY | END 2023-09-08 08:00 | PROVIDERS: Admitting Provider Physician Assistant; Emergency Provider Emergency Medicine; PCP Internal Medicine; Visit Provider Physician Assistant Surgical | DX: R79.89 Other specified abnormal findings of blood chemistry (principal); D61.818 Other pancytopenia | CPT/HCPCS: 47000; 76942 ==

== ENCOUNTER → 2023-09-02 09:55 | Outpatient (BNV) | payer MEDICARE, SELFPAY | PROVIDERS: Admitting Provider Physician Assistant; Emergency Provider Emergency Medicine; PCP Internal Medicine; Visit Provider Internal Medicine | DX: D64.9 Anemia, unspecified (principal) | CPT/HCPCS: 99222; 99231 ==

== ENCOUNTER → 2023-09-02 09:55 | Outpatient (BNV) | payer MEDICARE, SELFPAY | PROVIDERS: Admitting Provider Physician Assistant; Emergency Provider Emergency Medicine; PCP Internal Medicine; Visit Provider Internal Medicine Hypertension Specialist | DX: R00.0 Tachycardia, unspecified (principal) | CPT/HCPCS: 99222 ==

== ENCOUNTER → 2023-09-02 09:55 | Outpatient (BNV) | payer MEDICARE, SELFPAY | PROVIDERS: Admitting Provider Physician Assistant; Emergency Provider Emergency Medicine; PCP Internal Medicine; Visit Provider Physician Assistant Surgical | DX: R79.89 Other specified abnormal findings of blood chemistry (principal) | CPT/HCPCS: 47000; 76942 ==

== ENCOUNTER → 2023-09-02 09:55 | Outpatient (BNV) | payer MEDICARE, SELFPAY | PROVIDERS: Admitting Provider Physician Assistant; Emergency Provider Emergency Medicine; PCP Internal Medicine; Visit Provider Internal Medicine | DX: D69.6 Thrombocytopenia, unspecified (principal); R79.89 Other specified abnormal findings of blood chemistry; D64.9 Anemia, unspecified | CPT/HCPCS: 99222 ==

== ENCOUNTER 2023-09-17 05:37 | Inpatient (IN) | payer MEDICARE, SELFPAY ==
[2023-09-17] VITALS (7 sets, daily range): BP systolic 123–151; BP diastolic 53–80; PULSE 94–106; RESP 18–25; TEMP 36.3–37.1; O2SAT 97–99; BMI 23.8
--- NOTE | ~2023-09-17 | CT_ITS ---
EXAMINATION: CT HEAD WITHOUT CONTRAST (STROKE PROTOCOL) CLINICAL INFORMATION: Right facial droop. Headache. COMPARISON: 08/31/2023 TECHNIQUE: Contiguous axial imaging was performed from the skull base to vertex without intravenous administration of contrast. This CT examination was performed using dose optimization techniques as appropriate, variously including the following: *Automated exposure control *Adjustment of mA and/or kV according to patient size (this includes techniques or standardized protocols for targeted exams where dose is matched to indication/reason for exam; i.e. extremities or head) *Use of iterative reconstruction technique DLP: 630 mGy-cm FINDINGS: There is no evidence of acute intracranial hemorrhage or territorial infarction. No abnormal mass-effect or midline shift is seen. Fernandez to white matter differentiation is well preserved. No extra axial fluid collections. The ventricles are normal in size and configuration. There is no abnormal attenuation within the brain parenchyma. The soft tissues and osseous structures are normal. The sinuses and mastoid air cells are clear. CT/CT head for stroke IMPRESSION: No acute intracranial pathology.
--- NOTE | ~2023-09-17 | XR_ITS ---
EXAMINATION: XR CHEST CLINICAL INFORMATION: Stroke COMPARISON: 09/08/2023 TECHNIQUE: Frontal view of the chest was obtained. FINDINGS: 1 gillespie are grossly comparable to previous failure seen. There is no effusion. The cardiac silhouette is comparable to previous. The hilar regions are felt to be comparable. Clearing right medial basilar process. XR/XR chest 1V IMPRESSION: No acute finding.
--- NOTE | ~2023-09-17 | CT_ITS ---
PROCEDURE: CT GUIDED BIOPSY CLINICAL INFORMATION: Pancytopenia COMPARISON: None available. TECHNIQUE/FINDINGS: This CT examination was performed using dose optimization techniques as appropriate, variously including the following: *Automated exposure control *Adjustment of mA and/or kV according to patient size (this includes techniques or standardized protocols for targeted exams where dose is matched to indication/reason for exam; i.e. extremities or head) *Use of iterative reconstruction technique DLP: 170 mGy-cm CONSCIOUS SEDATION: I personally supervised an independent trained observer for moderate conscious sedation utilizing 1 mg of Versed and 50 mcg of fentanyl. The patient was monitored with pulse oximetry, blood pressure cuff, and EKG leads by a registered nurse. Total intraservice sedation time: 30 minutes Informed consent was obtained following the risk and benefits of the procedure with the patient. The patient was placed prone on the fluoroscopy table. A limited CT scan of the pelvis was performed. A site overlying the right lower back was selected, marked and sterilely prepped and draped. Following the administration of 1% lidocaine for local anesthesia, the right iliac bone was accessed with a 13-gauge trocar needle. Bone marrow aspirate was performed and the specimens were divided into green and purple top tubes. Then, a core biopsy of the bone marrow was performed in the samples placed in formalin. The samples were deemed to be adequate. The needle was removed and hemostasis was achieved with manual compression. A dressing was applied. Post biopsy images demonstrate no bleeding or other complication. Patient tolerated the procedure well. CT/CT biopsy bone marrow . IMPRESSION: Bone marrow biopsy
--- NOTE | ~2023-09-17 | NM_ITS ---
EXAMINATION: NM BONE SCAN OF THE WHOLE BODY CLINICAL INFORMATION: History of metastatic breast cancer to the bone. COMPARISON: CT of the chest done on 09/10/[address] of the abdomen and pelvis done on 09/02/2023. MRI of the abdomen done on 09/03/2023. TECHNIQUE: Multiple gamma scintillation camera images of the whole body were performed 3 hours following the intravenous administration of 23 mCi Tc-99m MDP. The radiotracer was injected through right hand superficial vein without complications. FINDINGS: In the head, patchy heterogeneous tracer avidity is noted within the skull vault, highly suspicious for metastatic disease. In the thoracic cage and upper extremities, patchy heterogeneous tracer avidity is noted throughout the entire thoracic cage and both upper extremities, highly suspicious for metastatic disease. In the spine, heterogeneous patchy radiotracer uptake is present throughout the entire cervical thoracic and lumbosacral spine, highly suspicious for metastatic disease. In the pelvis, patchy heterogeneous tracer avidity involving the pelvis including both iliac and sacral bones are also highly suspicious for metastatic disease. In the lower extremities, heterogeneous increased tracer avidity in the proximal metadiaphyseal region of both femur and tibia suspicious for metastatic involvement or hypertrophic osteoarthropathy. Periarticular increased tracer avidity around both knees and both ankle including both feet likely represent nonspecific posttraumatic and/or arthritic changes. No other definite bony abnormalities are noted. The urinary bladder and faint visualization of both kidneys are noted. NM/NM bone scan whole body IMPRESSION: Abnormal study showing features highly suspicious for near diffuse osseous metastasis.
--- NOTE | ~2023-09-17 | CT_ITS ---
EXAMINATION: CT ABDOMEN AND PELVIS WITH CONTRAST CLINICAL INFORMATION: Biliary obstruction COMPARISON: 09/02/2023 TECHNIQUE: Multidetector volumetric images were obtained from the superior aspect of the liver through the pubic symphysis following administration 85 mL of Omnipaque 350 intravenous contrast. Sagittal and coronal reformatted images were obtained on the technologist's workstation. Oral contrast: No This CT examination was performed using dose optimization techniques as appropriate, variously including the following: *Automated exposure control *Adjustment of mA and/or kV according to patient size (this includes techniques or standardized protocols for targeted exams where dose is matched to indication/reason for exam; i.e. extremities or head) *Use of iterative reconstruction technique DLP: 1238 mGy-cm FINDINGS: LUNG BASES: There is subpleural thickening in the left lower lobe anterior and pleural calcification. There is right middle lobe 0.3 cm nodule seen in image 3 series 19 LIVER, GALLBLADDER, AND BILIARY TREE: The liver is normal in size, shape, and attenuation. No focal hepatic lesion or biliary ductal dilatation is present. Gallbladder revealed thickening. The gallbladder fundus most likely due to polyp, versus chronic wall thickening is seen on the previous ultrasound PANCREAS: Unremarkable. SPLEEN: Unremarkable. ADRENAL GLANDS: Unremarkable. KIDNEYS AND URETERS: Both kidneys revealed heterogeneous attenuation of parenchyma most likely due to pyelonephritis. There is no hydroureteronephrosis but there is 0.2 cm stone in the left UVJ BLADDER: There is single air bubble at the dome of the urinary bladder GASTROINTESTINAL TRACT: The small and large bowel are unremarkable. The appendix is unremarkable. ABDOMINAL WALL: No significant hernia is appreciated. LYMPH NODES: Normal. VASCULAR: Unremarkable. PELVIC VISCERA: Uterus is surgically absent. OSSEOUS STRUCTURES: There are degenerative changes at the level of L4-L5 and L5-S1 CT/CT abdomen pelvis w IV con IMPRESSION: 1. Bilateral pyelonephritis. Small stone in the left UVJ. 2. Single air bubble at the dome of the urinary bladder, correlate with recent instrumentation or infection. 3. Gallbladder polyp versus chronic wall thickening in the fundus of the gallbladder. 4. 0.3 cm nodule in the right middle lobe and pleural thickening in the left lower lobe associated with calcifications of pleura. 5. Degenerative changes in lower lumbar spine. Fleischner guidelines were followed.
--- NOTE | ~2023-09-17 | CT_ITS ---
EXAMINATION: CTA NECK WITH CONTRAST (STROKE) CTA BRAIN WITH CONTRAST (STROKE) CLINICAL INFORMATION: Suspect acute stroke. Assess for major vessel occlusion. Please call report. COMPARISON: None available. TECHNIQUE: CTA of the head and neck was performed in the axial plane from the mediastinum to the skull vertex using 70 mL Omnipaque 350 intravenous contrast. Additional reformatted multiplanar images including maximum intensity projection MIP images are generated on the CT workstation. Delayed postcontrast images of the head were obtained. This CT examination was performed using dose optimization techniques as appropriate, variously including the following: *Automated exposure control *Adjustment of mA and/or kV according to patient size (this includes techniques or standardized protocols for targeted exams where dose is matched to indication/reason for exam; i.e. extremities or head) *Use of iterative reconstruction technique DLP: 1402 mGy-cm FINDINGS: The degree of stenosis determined by criteria similar to NASCET. BRAIN: The brain parenchyma is normal in morphology. Some faint patchy zones of subtle hypodensity are suspected in the subcortical white matter of the posterior frontal lobes bilaterally which are nonspecific findings but likely reflect minimal chronic ischemic microangiopathy in a patient of this age. Otherwise normal brain parenchymal attenuation. Ganglionic structures and midbrain appear intact. Fernandez-white matter differentiation is well maintained. There is no acute territorial infarct and there is no significant focal regional oligemia. Within the limitations of a contrast-enhanced exam, no definite evidence for intracranial hemorrhage, extra-axial fluid collection, significant space-occupying process, mass effect or mass lesion and no definite pathologic intracranial enhancement. The ventricular system and subarachnoid spaces are within normal limits without hydrocephalus. Osseous structures appear grossly intact and the visualized airspaces are unopacified. Neck and Upper Chest Soft Tissues, Limited Assessment: No acute process. Images of the upper lung parenchyma demonstrate nonspecific subpleural opacity in the anterior left upper lobe, which could be inflammatory or postinflammatory in nature or less likely neoplastic. Recommend follow-up CT of the chest with contrast. CHEST/NECK CTA: The thoracic aortic arch is uncoiled with scattered partially calcified atheromatous plaque in the [id number] arch without significant luminal diameter reduction. Typical three-vessel arch configuration noted. The brachiocephalic vessels are partially obscured by streak artifact. Within these limitations, no significant stenosis is seen involving the brachiocephalic vessels. The right subclavian artery is patent and normal in caliber. Proximal left subclavian artery is patent and normal in caliber. Distal left subclavian artery is partially obscured. Proximal left common carotid artery and right common carotid arteries are patent without significant stenosis. The left vertebral artery is nondominant and is quite small diffusely but not significantly focally stenotic or segmental included. Right vertebral artery is quite dominant and is smoothly contoured and diffusely normal in caliber. NECK CTA: Right Carotid: Right common carotid artery is only slightly narrowed distally just proximal to the bifurcation by soft plaque but not significantly narrowed at this point. There is partially calcified plaque at the right carotid bulb, with less than 50% diameter reduction stenosis by NASCET criteria. Distal to the optimal ICA, the cervical right ICA is smoothly contoured, patent and normal in caliber with patency and smooth contour of the ECA. Left Carotid: Left common carotid artery is patent and normal in caliber. There is mild to moderate focal partially calcified plaque at the left carotid bulb and at the origin of the ECA, with less than 50% diameter reduction stenosis of the proximal left ICA by NASCET criteria. More distally, the left cervical ICA is patent, smoothly contoured and normal in caliber. Minimal narrowing of the proximal ECA. BRAIN CTA: The intracranial ICAs are patent bilaterally without significant focal stenosis or segmental occlusion. There is minor luminal irregularity of the cavernous and precavernous portion of the left ICA with minimal mural calcification of the supraclinoid segment and there are tiny foci of mural calcification of the right carotid siphon without significant stenosis. There is a short-segment moderate stenosis of the proximal supraclinoid left ICA just distal to the ophthalmic segment. The A1 and A2 segments are patent and normal in caliber with a normal appearance to the anterior communicating artery. The MCA bifurcations and M2 branches are patent. Limited assessment due to venous contamination. Dominant right intradural vertebral artery is patent and normal in caliber. The nondominant, small left intradural vertebral artery is not occluded and probably not significantly focally stenotic within the limitations of the study. The basilar artery is patent and normal in caliber. The superior cerebellar and posterior cerebral arteries are patent and normal in caliber. Skeletal: Lordotic reversal centered at C5-C6 with disc space height loss and spondylosis at this level and spondylosis at C4-C5. Lqxjbano-wv-yvuatn spinal canal stenosis is noted at C5-C6 and moderate spinal canal stenosis noted at C6-C7 with posterior disc osteophyte complexes at these levels. Cord compression cannot be excluded. Multilevel bilateral DJD throughout the cervical spine with multilevel bony neural foraminal stenosis, most severe on the left at C5-C6. CT/CT angio head neck stroke IMPRESSION: 1. Partially calcified plaque at both carotid bulbs, with less than 50% diameter reduction stenosis of the proximal ICAs by NASCET criteria. 2. Short-segment moderate, nonflow-limiting stenosis of the supraclinoid left internal carotid artery. No intracranial arterial occlusion or other significant stenosis is identified. 3. Minimal chronic ischemic microangiopathy in the subcortical white matter of both frontal lobes. No acute territorial infarct. No pathologic intracranial enhancement. 4. Nonspecific subpleural opacity in the anterior left upper lobe, which could be inflammatory or post inflammatory in nature or less likely neoplastic. Recommend follow-up CT of the chest with contrast. 5. Multilevel cervical spondylosis and significant spinal canal stenosis as discussed above. Cannot exclude cord impingement at these levels. Consider MRI of the cervical spine for further assessment if clinically warranted. The [facility] staff will call to confirm receipt of this report with acknowledgement of the findings and any recommendations.
--- NOTE | ~2023-09-17 | MR_ITS ---
EXAMINATION: MR BRAIN WITH CONTRAST CLINICAL INFORMATION: Postcontrast sequences COMPARISON: MRI brain 09/17/2023 TECHNIQUE: MRI of the brain was obtained following administration of intravenous contrast. A total of 7 mL of Gadavist was administered intravenously. MR/MR head/brain w con FINDINGS/IMPRESSION: Diffuse enhancement involving the osseous structures, including the calvarium, skull base, maxillofacial bones, and imaged cervical spinal column again concerning for widespread osseous metastatic disease. Thin reactive pachymeningeal enhancement along the bilateral cerebral convexities. 1.5 x 1.3 cm nodular enhancement within the anterior aspect of the left middle cranial fossa appears to be both intra and extra-axial with involvement of the left temporal pole as evidenced by lack of clearly delineated CSF plane on prior MRI. This is contiguous with osseous metastatic disease eroding the inferior aspect of the left sphenoid wing and a portion of the the posterolateral wall of the left orbit, better illustrated on prior CT. There is minimal extraosseous disease noted within the posterolateral left extraconal orbit abutting the posterior aspect of the left lateral rectus muscle (image 11, series 3) and possible extraosseous extension into the left temporalis fossa involving the deep fibers of the left temporalis muscle. There may also be minimal infiltration along the roof of the left pterygomaxillary fissure. Pulsation artifact versus metastases within the left greater than right occipital lobes (images 11-13, series 3) and apparent enhancement versus artifact within the posterior fossa would be better evaluated on 3-D MPRAGE/GUSMAN postcontrast sequences. Please refer to separate brain MRI for discussion of additional findings.
--- NOTE | ~2023-09-17 | CT_ITS ---
EXAMINATION: CT HEAD WITHOUT CONTRAST CLINICAL INFORMATION: Acute mental status change and thrombocytopenia COMPARISON: None available. TECHNIQUE: Contiguous axial imaging was performed from the skull base to vertex without intravenous administration of contrast. This CT examination was performed using dose optimization techniques as appropriate, variously including the following: *Automated exposure control *Adjustment of mA and/or kV according to patient size (this includes techniques or standardized protocols for targeted exams where dose is matched to indication/reason for exam; i.e. extremities or head) *Use of iterative reconstruction technique DLP: 584.6 mGy-cm FINDINGS: There is no evidence of acute intracranial hemorrhage or edematous territorial infarction. Fernandez-white matter differentiation is preserved. There is no abnormal attenuation within the brain parenchyma. The ventricles are normal in morphology and size. No evidence for obstructive hydrocephalus. No abnormal mass effect or midline shift. No extra-axial fluid collections. No acute soft tissue or osseous abnormalities. The mastoid air cells and visualized paranasal sinuses are clear. CT/CT head/brain wo IV con IMPRESSION: 1. No evidence of acute intracranial hemorrhage or edematous territorial infarction
--- NOTE | ~2023-09-17 | US_ITS ---
EXAMINATION: US ABDOMEN LIMITED CLINICAL INFORMATION: Increased transaminases. COMPARISON: Abdominal ultrasound 09/12/2023 TECHNIQUE: Real-time imaging of the right upper quadrant abdominal viscera. FINDINGS: PANCREAS: Normal. LIVER: Normal. The liver is normal in size. The liver contour is normal. Parenchymal echogenicity is normal. No focal hepatic lesion. There is no intrahepatic biliary duct dilatation seen. GALLBLADDER: Trace sludge within the gallbladder. Gallbladder wall is mildly thickened though may be due to under distention. No radha stones. COMMON BILE DUCT: Normal in caliber measuring 0.4 cm in diameter. RIGHT KIDNEY: Normal. No hydronephrosis. No renal calculi or focal parenchymal lesions. The kidney measures 11.6 cm in maximum dimension. FREE FLUID: Trace free fluid US/US abdomen limited IMPRESSION: 1. Trace sludge within the gallbladder. Gallbladder wall is mildly thickened though may be due to under distention. No radha stones to suggest cholecystitis. 2. Trace free fluid.
--- NOTE | ~2023-09-17 | MR_ITS ---
EXAMINATION: MR BRAIN WITH CONTRAST CLINICAL INFORMATION: Intracranial metastatic disease. COMPARISON: MR brain with and without contrast 09/17/2023. TECHNIQUE: MR imaging of the brain was performed after the intravenous administration of 6 mL Gadavist contrast. FINDINGS: This examination is read in conjunction with the MR imaging of the brain performed on 09/17/2023. Again there is extensive heterogeneous signal and enhancement characteristics involving the bone marrow of the calvarium, skull base, facial bones, and visualized upper cervical spine. There is dural thickening and enhancement over both convexities that presumably represents reactive changes in the setting of widespread osseous metastatic disease. There is a focus of parenchymal enhancement involving the left anterior temporal lobe measuring approximately 1.7 cm in maximal transaxial dimension best depicted on axial image 53 of 144 series 3 most likely representing intracranial extension of tumor. Otherwise no abnormal parenchymal enhancement visualized elsewhere within the intracranial compartment. No intracranial mass effect or hydrocephalus. MR/MR head/brain w con IMPRESSION: There is diffuse dural thickening and enhancement most likely representing reactive changes in the setting of widespread osseous metastatic disease. There is also a focus of parenchymal enhancement involving the left anterior temporal lobe measuring approximately 1.7 cm in maximal transaxial dimension most likely representing direct intracranial extension of tumor. Otherwise no abnormal parenchymal enhancement visualized elsewhere within the intracranial compartment. No intracranial mass effect or hydrocephalus.
--- NOTE | ~2023-09-17 | MR_ITS ---
EXAMINATION: MR BRAIN WITHOUT CONTRAST CLINICAL INFORMATION: Facial droop. COMPARISON: MR brain 06/08/2021. TECHNIQUE: MRI of the brain was obtained using routine sequences without contrast. FINDINGS: There is diffuse reduction of normal bone marrow signal intensity on the T1 sequences which raises the concern for widespread osseous metastatic disease. There is parenchymal edema located within the left anterior temporal lobe that may represent intracranial invasion of a metastasis involving the left greater sphenoid wing. Otherwise no intracranial mass effect or midline shift. No abnormal extra axial collection. Lateral and third ventricles are normal. No hydrocephalus. Scattered nonspecific foci of T2 FLAIR signal hyperintensity visualized within the periventricular white matter. No acute territorial infarct. Intracranial vascular flow voids are grossly maintained. There is a small right mastoid effusion. No active paranasal sinus disease. Globes and orbits are grossly symmetric. MR/MR head/brain wo con IMPRESSION: There are multiple anatomic findings that raise the concern for widespread osseous metastatic disease. There is parenchymal edema located within the left anterior temporal lobe that may represent intracranial invasion of a metastasis involving the left greater sphenoid wing. A dedicated postcontrast MRI of the brain can be obtained for better anatomic characterization of this finding. Otherwise no intracranial mass effect or hydrocephalus. No evidence of acute territorial infarct or hemorrhage. This critical result was discussed with Mayank Rockwell at 4:16 PM on 09/17/2023 and it was ascertained that the content and urgency of the report was understood at the time of direct communication.
--- NOTE | 2023-09-17 05:43 | ECG_ITS ---
Test Reason : stroke protocol Blood Pressure : / mmHG Vent. Rate : 094 BPM Atrial Rate : 094 BPM P-R Int : 110 ms QRS Dur : 080 ms QT Int : 350 ms P-R-T Axes : 018 024 026 degrees QTc Int : 437 ms Sinus rhythm with short NM Nonspecific ST abnormality Abnormal ECG When compared with ECG of 05-SEP-2023 23:27, No significant change was found Referred By: Grayson Phelps Electronically Signed By:LEONARD VASQUEZ MD
[2023-09-17 05:51] LABS: Glucose, Whole Blood 114 mg/dL (60-115)
--- NOTE | 2023-09-17 06:05 | ED.NEUROSD ---
HPI - Neuro Symptoms/Deficit General Chief Complaint: Stroke Stated Complaint: R SIDED FACIAL NUMBNESS/KEANE Time Seen by Provider: 09/17/23 05:43 Source: patient, EMS and old records reviewed Mode of arrival: EMS Limitations: no limitations History of Present Illness ED Provider: DR. Phelps HPI Narrative: 73-year-old female with type 2 diabetes, breast cancer came in by ambulance as a stroke protocol for right facial droop. Patient was discharged from [facility] yesterday to a long-term [facility], as reported by EMS patient was not pleased to be at the [facility], came in complaining of severe headache and right facial droop. Patient is not on any anticoagulation. No chest pain, no shortness of breath. Related Data Home Medications ?Medication ?Instructions ?Recorded ?Confirmed metoprolol succinate 50 mg 50 mg PO DAILY 08/19/23 08/31/23 tablet,extended release 24 hr cholecalciferol (vitamin D3) 25 25 mcg PO DAILY 08/31/23 08/31/23 mcg (1,000 unit) tablet (Vitamin D3) multivitamin 1 tab PO DAILY 08/31/23 08/31/23 Previous Rx's ?Medication ?Instructions ?Recorded aspirin 81 mg tablet,delayed 81 mg PO DAILY #30 tabs 08/09/23 release (Ecotrin Low Strength) blood sugar diagnostic (FreeStyle #100 ea 08/19/23 Lite Strips) blood-glucose meter (FreeStyle #1 ea 08/19/23 Lite Meter kit) lancets 28 gauge (FreeStyle #100 ea 08/19/23 Lancets) omeprazole 20 mg capsule,delayed 20 mg PO DAILY@0630 #30 caps 09/16/23 release prednisone 20 mg tablet 40 mg (2 x 20 mg) PO DAILY #14 tabs 09/16/23 Allergies Allergy/AdvReac Type Severity Reaction Status Date / Time sulfamethoxazole Allergy Intermediate HIVES Verified 09/17/23 05:52 [From Bactrim] trimethoprim [From Bactrim] Allergy Intermediate HIVES Verified 09/17/23 05:52 amoxicillin [Amoxicillin] Allergy Mild RASH Verified 09/17/23 05:52 Sulfa (Sulfonamide Allergy Unknown Hives Verified 09/17/23 05:52 Antibiotics) Review of Systems Review of Systems: All other systems are reviewed and are negative Constitutional: Reports as per HPI and Reports no additional constitutional complaints Eyes: Reports as per HPI and Reports no additional eye complaints Reports system reviewed and no additional complaints, except as documented Cardiovascular: Reports as per HPI and Reports no additional cardiovascular complaints Respiratory: Reports as per HPI and Reports no additional respiratory complaints Gastrointestinal: Reports as per HPI and Reports no additional gastrointestinal complaints Genitourinary: Reports no additional female genitourinary complaints Musculoskeletal: Reports no additional musculoskeletal complaints Skin/Breast: Reports system reviewed and no additional complaints, except as docu Psychiatric: Reports no additional psychiatric complaints Endocrine: Reports no additional endocrine complaints Hematologic/Lymphatic: Reports no additional hematologic/lymphatic complaints Allergic/Immunologic: Reports no additional allergic/immunologic complaints Reports system reviewed and no additional complaints, except as documented and Reports Abnormal speech present PMFSH Past Medical History Medical History Chest pain Type 2 diabetes mellitus with hyperglycemia, without long-term current use of insulin Irregular heart beat Kidney stone Hyperlipidemia Cancer of breast Surgical History H/O colonoscopy History of lumpectomy of left breast Hx of thumb surgery S/P JUSTIN (total abdominal hysterectomy) History of surgery on arm Family History Family History Mother Tuberculosis Brother Myocardial infarction, Onset Age: 55 Skin cancer Father Skin cancer Social History Social History Household Members: Spouse Housing: House Do you presently have visiting nurse or other home services: No Alcohol intake: never Comment: pt compliant with calling for assistance Patient Tobacco Use Status: Never used Tobacco Tobacco use type: Cigarette Smoked in Last 30 Days: No e-Cigarette/Vaping Use: Never Used Second Hand Smoke Exposure: No Use of substances other than those prescribed or required for medical reasons: No Advance Directives: No Advance Directives Information Provided: No service: No Current occupational status: retired Cognitive needs: No Hearing needs: No Vision needs: Yes Physical Exam Vital Signs: Vital Signs: Last Vital Signs Temp 98.7 F 09/17/23 05:50 Pulse 95 09/17/23 05:50 Resp 25 H 09/17/23 05:50 BP 151/59 H 09/17/23 05:50 Pulse Ox 98 09/17/23 05:50 O2 Del Method Room Air 09/17/23 05:50 BMI result Body Mass Index 23.8 Vital signs have been reviewed and appear to be correct. Blood pressure elevated. Heart rate normal. Respiratory rate normal. Temperature normal. Oxygen saturation normal. Appearance: Alert. Oriented X3. No acute distress. Head: Normal external exam. Normocephalic. Atraumatic. No Georges signs noted. No raccoon eyes noted Eyes: PERRLA. EOMI. Conjunctiva and sclera normal. Eyelids normal. ENT: TM's Normal. Pharynx normal. Uvula midline. Moist mucous membranes. No trismus noted. No drooling noted. No muffled voice noted. Neck: Normal inspection. Neck supple. FROM. No adenopathy. Thyroid Normal. No meningeal signs. No neck mass noted. CVS: Normal heart rate and rhythm. Heart sound normal. No murmurs noted. Pulses normal throughout. Respiratory: No respiratory distress. Painless inspiration. Breath sounds normal. No wheezes/rales/rhonchi noted. Chest nontender. No accessory muscle usage noted or decreased air movement noted. Abdomen: Soft and nontender. Bowel sounds normal in all 4 quadrants. No distention noted. No organomegaly noted. No visible injury noted. Back: No CVA tenderness. Full range of motion noted. Skin: Skin warm and dry. Normal skin color. Normal skin turgor. No rashes/lesions/lacerations noted. Extremities: No lower extremity edema. Extremities exhibit normal range of motion. Extremities nontender. Neuro: Oriented X 3. Cranial nerve exam: II-XII are grossly intact No motor deficit. No sensory deficit. Reflexes normal. Course Reevaluation(s) Reevaluation #1: 73-year-old female came in with a headache and right facial droop, CT head is negative for acute bleed, the case was discussed with Dr. Hinton patient is not a candidate for thrombolysis because of a low NIH score and minor symptoms. CTA angio, aspirin, admit. Case signed out to Dr. Snyder Time: 06:59 Medical Decision Making Differential Diagnosis Differential Diagnoses: The differential diagnosis associated with the presentation includes (CVA, intracranial bleed, Wolfe's palsy, electrolyte derangement, severe anemia) Admission/Observation Consideration of admission/observation: Escalation of care including admission/observation considered Consult Healthcare Provider Management of the patient was discussed with: Hospitalist (Dr. Rockwell) and Infrastructure Developer (Dr. Hinton) Lab Data MDM Lab Attestation statement: I reviewed the patient's lab results. 09/17/23 06:10 09/17/23 06:10 Labs: Lab Results 09/17/23 09/17/23 Range/Units 05:46 06:10 WBC 4.0 L (4.8-10.8) X10*3/uL RBC 3.04 L (4.20-5.50) X10*6/uL Hgb 8.4 L (12.0-16.0) g/dl Hct 25.0 L (37.0-47.0) % MCV 82.2 (80.0-98.0) fL MCH 27.6 (27.0-33.0) pg MCHC 33.6 (31.0-35.0) g/dl RDW 17.2 H (11.0-16.0) % Plt Count 56 L (160-400) X10*3/uL MPV 10.8 (9.4-12.3) fL Immature Gran % (Auto) Cancelled Neut % (Auto) Cancelled Lymph % (Auto) Cancelled [place] % (Auto) Cancelled Eos % (Auto) Cancelled Baso % (Auto) Cancelled Lymph # (Auto) Cancelled [place] # (Auto) Cancelled Eos # (Auto) Cancelled Baso # (Auto) Cancelled Abs Immat Gran (auto) Cancelled Absolute Neuts (auto) Cancelled Absolute Nucleated RBC 0.260 H (0.0-0.012) X10*3/uL Nucleated RBC % (auto) 6.4 H (0.0-0.2) /100WBC Sodium 138 (135-145) mmol/L Potassium 3.7 (3.3-5.1) mmol/L Chloride 101 (96-108) mmol/L Carbon Dioxide 25 (22-29) mmol/L Anion Gap 16 (12-20) BUN 22 H (9-16) mg/dL Creatinine 0.61 (0.5-1.4) mg/dL Estim Creat Clear Calc 79.1 Estimated GFR > 60 POC Glucose 114 (60-115) mg/dL Random Glucose 92 (60-115) mg/dL Calcium 8.9 (8.4-10.2) mg/dL Total Bilirubin 3.0 H (0.0-1.0) mg/dL Direct Bilirubin 1.8 H (0.0-0.5) mg/dL AST 86 H (5-31) U/L ALT 152 H (0-31) U/L Alkaline Phosphatase 835 H (39-117) U/L Troponin I High Sens 4.2 D (<3.5-17.0) ng/L B-Natriuretic Peptide 94 (<100) pg/mL Total Protein 5.6 L (6.5-8.0) g/dL Albumin 2.9 L (3.5-5.0) g/dL Lipase 33 (8-78) U/L COVID-19 (LAST) Negative (Negative) COVID-19 Clin Com See Note Independent Interpretation I performed an independent interpretation of an: Plain X-Ray (Chest: No acute findings) and CT Scan (Head: No acute intracranial pathology.) Radiology Impression Discussion of test interpretation with radiology: I have reviewed the radiologist's reading. NIH Stroke Scale Internal: Initial- Upon Arrival Time: 06:12 Level of Consciousness: Alert Level of Consciousness Questions: Answers both questions correctly Level of Consciousness Commands: Performs both tasks correctly Best Gaze: Normal Visual: No visual loss Facial Palsy: Minor paralyis Motor Arm (Right): No drift Motor Arm (Left): No drift Motor Leg (Right): No drift Motor Leg (Left): No drift Limb Ataxia: Absent Sensory: Normal Best Language: No aphasia Dysarthia: Normal Extinction and Inattention: No abnormality Score: 1 Discharge Plan Discharge Clinical Impression: Cerebrovascular accident Patient Disposition: Admitted As Inpatient Print Language: Malaysian
[2023-09-17 06:18] LABS: Hemoglobin 8.4 g/dl (12.0-16.0); Mean Corpuscular HGB Conc 33.6 g/dl (31.0-35.0); Mean Corpuscular Hemoglobin 27.6 pg (27.0-33.0); Mean Corpuscular Volume 82.2 fL (80.0-98.0); Mean Platelet Volume 10.8 fL (9.4-12.3); Red Blood Count 3.04 X10*6/uL (4.20-5.50); Red Cell Distribution Width 17.2 % (11.0-16.0)
[2023-09-17 06:19] LABS: NRBC Pct Auto 6.4 /100WBC (0.0-0.2); Platelet Count 56 X10*3/uL (160-400)
[2023-09-17 06:31] LABS: COVID-19 Test Negative (Negative); IDNOW Serial# 55D5AD1C
[2023-09-17 06:33] LABS: Alanine Aminotransferase 152 U/L (0-31); Albumin Level 2.9 g/dL (3.5-5.0); Alkaline Phosphatase 835 U/L (39-117); Anion Gap 16 (12-20); Aspartate Amino Transferase 86 U/L (5-31); Bilirubin Direct 1.8 mg/dL (0.0-0.5); Blood Urea Nitrogen 22 mg/dL (9-16); Calcium 8.9 mg/dL (8.4-10.2); Carbon Dioxide 25 mmol/L (22-29); Chloride 101 mmol/L (96-108); Creatinine Clr Calc Pharmacy 79.1; Estimated Glomerular Filt Rate > 60; Glucose Random 92 mg/dL (60-115); Lipase 33 U/L (8-78); Potassium 3.7 mmol/L (3.3-5.1); Sodium 138 mmol/L (135-145); Total Protein 5.6 g/dL (6.5-8.0)
[2023-09-17 06:38] LABS: B Type Natriuretic Peptide 94 pg/mL (<100)
[2023-09-17 06:40] LABS: Troponin-I High Sensitivity 4.2 ng/L (<3.5-17.0)
[2023-09-17 07:33] LABS: Prothrombin Time Whole Bld POC 13.9 sec (11.1-13.5); ~PT, ~INR - Anti Coag Clinic 1.2 (0.9-1.1)
[2023-09-17] MEDS: iohexoL 350 MG/ML 100 ML INFUS..BTL IV (07:36)
--- NOTE | 2023-09-17 07:57 | PHA.MEDREC ---
Pharmacy Consult ? Medication Reconciliation Pharmacy has completed the medication reconciliation. Patient just discharged from [facility] yesterday, utilized discharge summary. Dr. Rockwell discontinued lovastatin and metformin. Patient was also to be started on prednisone taper per discharge summary: 40 mg daily x7 days followed by 35 mg daily x7 days followed by 30 mg daily x7 days followed by 25 mg daily x7 days followed by 20 mg daily x7 days followed by 15 mg daily x7 days followed by 10 mg daily x7 days followed by 5 mg daily x7 days.
[2023-09-17 07:59] LABS: Atypical Lymphs Percent Manual 1 % (0-6); Lymphocytes Absolute Manual 0.4 X10*3/uL (1.2-4.9); Lymphocytes Percent Manual 10 % (20-40); Monocytes Absolute Manual 0.1 X10*3/uL (0.1-1.2); Monocytes Percent Manual 2 % (2-11); Neutrophils Absolute Manual 3.5 X10*3/uL (2.0-8.3); Neutrophils Percent Manual 69 % (45-73); Nucleated Red Blood Cells 2 /100WBC (0-0)
[2023-09-17] MEDS: Aspirin 325 MG TABLET PO (08:02)
[2023-09-17] MEDS: Ketorolac Tromethamine 30 MG/ML VIAL IVPUSH (08:02)
[2023-09-17 08:05] LABS: Acanthocytes 1+ (0-2) /OIF; Microcytosis 1+ (5-14) /OIF; Ovalocytes 1+ (5-14) /OIF; Platelet Estimate DECREASED (NORMAL); Platelet Morphology Comment NORMAL; Polychromasia 1+ (0-2) /OIF; RBC Morphology NOTED; Schistocytes 1+ (0-2) /OIF; Spherocytes 1+ (0-2) /OIF; Stomatocytes 1+ (5-14) /OIF; Tear Drop Cells 1+ (0-2) /OIF
[2023-09-17 08:06] LABS: Basophilic Stippling 1+ (0-2) /OIF
[2023-09-17 08:11] LABS: Band Neutrophils Percent 18 % (3-5)
--- NOTE | 2023-09-17 08:12 | PC.NURSE ---
Resumed care of pt at 0700. a/ox4, respirations even and unlabored, nsr on the monitor. MRI screening form done and sent to MRI. Resting in bed quietly, call kulkarni within reach.
--- NOTE | 2023-09-17 08:16 | PC.NURSE ---
Per Mayank Rockwell MD he did not want the morphine or valtrex given, medications held, meds given per MAR on his order
--- NOTE | 2023-09-17 09:04 | P.HPHOSP_ITS ---
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 Please see past admission notes for details. Patient was [facility] to [facility] last evening; patient states she rarely slept in this a.m. developed a severe headache. Shortly after the onset of the headache she developed numbness and tingling around her nose that progressed to her cheek and down to her chin. Staff noted a possible right facial droop. She was transferred to [facility] for evaluation. Evaluation in the ER including CTA of the head and CTA of head neck failed to demonstrate any acute pathology that would be the causative factor for her presenting complaints Review of Systems 2 Review of Systems: Denies chest pain Denies shortness of breath Denies nausea vomiting diarrhea Denies fever chills PMFSH Medical History Chest pain Type 2 diabetes mellitus with hyperglycemia, without long-term current use of insulin Irregular heart beat Kidney stone Hyperlipidemia Cancer of breast Family History Mother Tuberculosis Brother Myocardial infarction, Onset Age: 55 Skin cancer Father Skin cancer Surgical History H/O colonoscopy History of lumpectomy of left breast Hx of thumb surgery S/P JUSTIN (total abdominal hysterectomy) History of surgery on arm Social History Household Members: Spouse Housing: House Do you presently have visiting nurse or other home services: No Alcohol intake: never Comment: pt compliant with calling for assistance Patient Tobacco Use Status: Never used Tobacco Tobacco use type: Cigarette Smoked in Last 30 Days: No e-Cigarette/Vaping Use: Never Used Second Hand Smoke Exposure: No Use of substances other than those prescribed or required for medical reasons: No Advance Directives: No Advance Directives Information Provided: No service: No Current occupational status: retired Cognitive needs: No Hearing needs: No Vision needs: Yes Meds Allergies Allergy/AdvReac Type Severity Reaction Status Date / Time sulfamethoxazole Allergy Intermediate HIVES Verified 09/17/23 05:52 [From Bactrim] trimethoprim [From Bactrim] Allergy Intermediate HIVES Verified 09/17/23 05:52 amoxicillin [Amoxicillin] Allergy Mild RASH Verified 09/17/23 05:52 Sulfa (Sulfonamide Allergy Unknown Hives Verified 09/17/23 05:52 Antibiotics) Active Medications: Current Medications Acetaminophen (Acetaminophen 325 Mg Tablet) 650 mg PO Q6H PRN PRN Reason: Pain, Mild (Pain Scale 1-3), fever or headache Aspirin (Aspirin Enteric Coated 81 Mg Tablet.Dr) 81 mg PO DAILY [facility] Calcium Carbonate (Calcium Carbonate 750 Mg Tab.Chew) 750 mg PO Q4H PRN PRN Reason: Heartburn Enoxaparin Sodium (Enoxaparin Sodium 40 Mg/0.4 Ml Syringe) 40 mg SUBCUT Q24H [facility] Magnesium Hydroxide (Milk Of Magnesia 30 Ml Oral.Susp) 30 ml PO DAILY PRN PRN Reason: Constipation Melatonin (Melatonin 3 Mg Tablet) 6 mg PO BEDTIME PRN PRN Reason: Insomnia Metoprolol Succinate (Metoprolol Succinate Er 50 Mg Tab.Er.24h) 50 mg PO DAILY [facility]; Protocol Multivitamins/Vitamin C (Multivitamin Tablet) 1 tab PO DAILY [facility] Omeprazole (Omeprazole 20 Mg Capsule.Dr) 20 mg PO DAILY@629 [facility] Ondansetron HCl (Ondansetron Hcl 4 Mg/2 Ml Vial) 4 mg IVPUSH Q8H PRN PRN Reason: Nausea and Vomiting Prednisone (Prednisone 20 Mg Tablet) 40 mg PO DAILY [facility] Sodium Chloride (0.9 % Sodium Chloride Flush 3 Ml Syringe) 3 ml IVFLUSH QSHIFT [facility] Vitamin D (Cholecalciferol (Vitamin D3) 25 Mcg Tablet) 25 mcg PO DAILY [facility] Home Medications ?Medication ?Instructions ?Recorded ?Confirmed ?Last Taken ?Type metoprolol succinate 50 mg 50 mg PO DAILY 08/19/23 09/17/23 09/16/23 History tablet,extended release 24 hr cholecalciferol (vitamin D3) 25 25 mcg PO DAILY 08/31/23 09/17/23 09/16/23 History mcg (1,000 unit) tablet (Vitamin D3) multivitamin 1 tab PO DAILY 08/31/23 09/17/23 09/16/23 History omeprazole 20 mg capsule,delayed 20 mg PO DAILY@0630 09/17/23 09/17/23 09/16/23 History release prednisone 20 mg tablet 40 mg PO DAILY 09/17/23 09/17/23 Unknown History Physical Exam 2 Vital Signs and Narrative: Vital Signs: Last Vital Signs Temp 98.2 F 09/17/23 08:02 Pulse 96 09/17/23 08:02 Resp 18 09/17/23 08:02 BP 147/54 H 09/17/23 08:02 Pulse Ox 97 09/17/23 08:02 O2 Del Method Room Air 09/17/23 08:02 BMI result Body Mass Index 23.8 Const: Other: Awake alert somewhat anxious appearing in bed Resp: Other: Clear to auscultation bilaterally no rales rhonchi or wheezes Cardio: Other: No S4; positive S1-S2; no S3 murmurs rubs or gallops GI: Other: Soft nontender nondistended normoactive bowel sounds x4 quadrants Neuro: Other: Cranial nerves 2-12 grossly intact as tested; no facial asymmetry noted. Patient is able to smile and wrinkle forehead without issue. Motor is 5/5 all extremities. Sensation is intact Extrem: Other: No edema bilaterally Results Labs 09/17/23 06:10 09/17/23 06:10 Labs: Laboratory Results - last 24 hr 09/16/23 09/17/23 09/17/23 05:46 05:46 06:10 MCV 82.2 MCH 27.6 MCHC 33.6 RDW 17.2 H Plt Count 56 L MPV 10.8 Immature Gran % (Auto) Cancelled Neut % (Auto) Cancelled Lymph % (Auto) Cancelled Callaway % (Auto) Cancelled Eos % (Auto) Cancelled Baso % (Auto) Cancelled Lymph # (Auto) Cancelled Callaway # (Auto) Cancelled Eos # (Auto) Cancelled Baso # (Auto) Cancelled Abs Immat Gran (auto) Cancelled Absolute Neuts (auto) Cancelled Absolute Nucleated RBC 0.260 H Nucleated RBC % (auto) 6.4 H Neutrophils % (Manual) 69 Band Neutrophils % 18 H Lymphocytes % (Manual) 10 L Atypical Lymphs % (Man) 1 Monocytes % (Manual) 2 Abs Neuts (Manual) 3.5 Lymphocytes # (Manual) 0.4 L Monocytes # (Manual) 0.1 Nucleated RBCs 2 H Platelet Estimate DECREASED Plt Morphology Comment NORMAL RBC Morphology NOTED Polychromasia 1+ (0-2) Basophilic Stippling 1+ (0-2) Microcytosis 1+ (5-14) Spherocytes 1+ (0-2) Tear Drop Cells 1+ (0-2) Ovalocytes 1+ (5-14) Stomatocytes 1+ (5-14) Acanthocytes (Spur) 1+ (0-2) Schistocytes 1+ (0-2) Whole Blood PT 13.9 H Whole Blood INR 1.2 H Anion Gap 16 Estim Creat Clear Calc 79.1 Estimated GFR > 60 POC Glucose 114 Random Glucose 92 Calcium 8.9 Total Bilirubin 3.0 H Direct Bilirubin 1.8 H AST 86 H ALT 152 H Alkaline Phosphatase 835 H Troponin I High Sens 4.2 D B-Natriuretic Peptide 94 Total Protein 5.6 L Albumin 2.9 L Lipase 33 COVID-19 (LAST) Negative COVID-19 Clin Com See Note Imaging Radiologist's Impressions: Impressions Head CT 09/17/23 05:51 IMPRESSION: No acute intracranial pathology. Chest X-Ray 09/17/23 06:38 IMPRESSION: No acute finding. Head/Neck CTA 09/17/23 07:36 IMPRESSION: 1. Partially calcified plaque at both carotid bulbs, with less than 50% diameter reduction stenosis of the proximal ICAs by NASCET criteria. 2. Short-segment moderate, nonflow-limiting stenosis of the supraclinoid left internal carotid artery. No intracranial arterial occlusion or other significant stenosis is identified. 3. Minimal chronic ischemic microangiopathy in the subcortical white matter of both frontal lobes. No acute territorial infarct. No pathologic intracranial enhancement. 4. Nonspecific subpleural opacity in the anterior left upper lobe, which could be inflammatory or post inflammatory in nature or less likely neoplastic. Recommend follow-up CT of the chest with contrast. 5. Multilevel cervical spondylosis and significant spinal canal stenosis as discussed above. Cannot exclude cord impingement at these levels. Consider MRI of the cervical spine for further assessment if clinically warranted. The [facility] staff will call to confirm receipt of this report with acknowledgement of the findings and any recommendations. Assessment and Plan (1) Facial paresthesia: Status: Acute (2) Drug induced liver disease: Status: Acute (3) Type 2 diabetes mellitus with hyperglycemia, without long-term current use of insulin: Status: Acute Plan 73 female recently admitted for 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 Patient states she awoke from sleep with what she describes as a migraine and developed numbness and tingling around her nose that progressed to her right cheek and right jaw. Staff at rehab were concerned that there might be a facial asymmetry as well. Transferred [place] [facility]. Initial workup with head CT, CTA head and neck failed to demonstrate acute pathology. She will be admitted to complete workup for same 1. Facial paresthesias... Highly suggestive of complex migraine as opposed to CVA/Wolfe's palsy -MRI to complete workup -monitor on telemetry -will discuss with Neurology after MRI complete 2. Drug-induced liver disease -total bili trending downward; transaminases stable. Alk-phos remains elevated but stable -continue prednisone taper as outlined -outpatient GI follow-up 3. Pancytopenia (likely related to medication reaction) -slowly improving with steroid taper -follow-up with hematology as outpatient as scheduled 4. Type 2 diabetes -point of care acceptable on steroids -lispro correctional scale -follow clinically Full code Lovenox Patient will require 1 midnight of hospitalization to complete workup for facial paresthesias and specialist consultation. This can not be done in a lesser acute setting Quality Stroke Does the patient have a stroke diagnosis?: No VTE Prior VTE?: No VTE Risk Level:: Medical - moderate - high VTE Device Contraindication: Treatment Not Indicated VTE Drug Contraindication: N/A - Med Ordered
[2023-09-17] MEDS: Metoprolol Succinate ER 50 MG TAB.ER.24H PO (09:33)
[2023-09-17] MEDS: Multivitamin TABLET 1 TAB PO (09:35)
[2023-09-17] MEDS: predniSONE 20 MG TABLET 40 MG PO (09:35)
[2023-09-17] MEDS: Cholecalciferol (Vitamin D3) 25 MCG TABLET PO (09:36)
[2023-09-17] MEDS: Omeprazole 20 MG CAPSULE.DR PO (09:36)
[2023-09-17] MEDS: Enoxaparin Sodium 40 MG/0.4 ML SYRINGE SUBCUT (09:37)
[2023-09-17 12:42] LABS: Glucose, Whole Blood 108 mg/dL (60-115)
--- NOTE | 2023-09-17 13:28 | MHC.CM.PN ---
CM met with Patient at bedside.Patient's goal is to go home with services; she does not want to return to [facility]. Patient may benefit from a PT Eval to assist with disposition.Patient lives with her disabled . CM will follow.
[2023-09-17] MEDS: LORazepam 1 MG TABLET PO (14:51)
[2023-09-17 15:49] LABS: Glucose, Whole Blood 269 mg/dL (60-115)
[2023-09-17] MEDS: 0.9 % Sodium Chloride Flush 3 ML SYRINGE IVFLUSH ×2 (16:04→19:50)
--- NOTE | 2023-09-17 16:04 | PM.NEUROCN ---
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 Patient was discharged to nursing home facility last evening; patient states she barely slept in this a.m. developed a severe right occipital headache. Shortly after the onset of the headache she developed numbness and tingling around her nose that progressed to her right cheek and down to her chin. It lasted 9 hours and resolved.. Staff noted a possible right facial droop. She was transferred to [facility] for evaluation. Evaluation in the ER including CTA of the head and CTA of head neck failed to demonstrate any acute pathology that would be the causative factor for her presenting complaints. MRI of the brain does not show any acute stroke. There is a left temporal pole abnormality of questionable significance. [facility] Past Medical History Medical History Chest pain Type 2 diabetes mellitus with hyperglycemia, without long-term current use of insulin Irregular heart beat Kidney stone Hyperlipidemia Cancer of breast Family History Family History Mother Tuberculosis Brother Myocardial infarction, Onset Age: 55 Skin cancer Father Skin cancer Surgical History Surgical History H/O colonoscopy History of lumpectomy of left breast Hx of thumb surgery S/P JUSTIN (total abdominal hysterectomy) History of surgery on arm Social History Social History Household Members: Spouse Housing: House Do you presently have visiting nurse or other home services: No Alcohol intake: never Comment: pt compliant with calling for assistance Patient Tobacco Use Status: Never used Tobacco Tobacco use type: Cigarette e-Cigarette/Vaping Use: Never Used Second Hand Smoke Exposure: No service: No Current occupational status: retired Cognitive needs: No Hearing needs: No Vision needs: Yes Meds Allergies Allergy/AdvReac Type Severity Reaction Status Date / Time sulfamethoxazole Allergy Intermediate HIVES Verified 09/17/23 05:52 [From Bactrim] trimethoprim [From Bactrim] Allergy Intermediate HIVES Verified 09/17/23 05:52 amoxicillin [Amoxicillin] Allergy Mild RASH Verified 09/17/23 05:52 Sulfa (Sulfonamide Allergy Unknown Hives Verified 09/17/23 05:52 Antibiotics) Active Medications: Current Medications Acetaminophen (Acetaminophen 325 Mg Tablet) 650 mg PO Q6H PRN PRN Reason: Pain, Mild (Pain Scale 1-3), fever or headache Aspirin (Aspirin Enteric Coated 81 Mg Tablet.) 81 mg PO DAILY [facility] Last Admin: 09/17/23 09:33 Dose: Not Given Calcium Carbonate (Calcium Carbonate 750 Mg Tab.Chew) 750 mg PO Q4H PRN PRN Reason: Heartburn Enoxaparin Sodium (Enoxaparin Sodium 40 Mg/0.4 Ml Syringe) 40 mg SUBCUT Q24H [facility] Last Admin: 09/17/23 09:37 Dose: 40 mg Magnesium Hydroxide (Milk Of Magnesia 30 Ml Oral.Susp) 30 ml PO DAILY PRN PRN Reason: Constipation Melatonin (Melatonin 3 Mg Tablet) 6 mg PO BEDTIME PRN PRN Reason: Insomnia Metoprolol Succinate (Metoprolol Succinate Er 50 Mg Tab.Er.24h) 50 mg PO DAILY [facility]; Protocol Last Admin: 09/17/23 09:33 Dose: 50 mg Multivitamins/Vitamin C (Multivitamin Tablet) 1 tab PO DAILY [facility] Last Admin: 09/17/23 09:35 Dose: 1 tab Omeprazole (Omeprazole 20 Mg Capsule.) 20 mg PO DAILY@0630 [facility] Last Admin: 09/17/23 09:36 Dose: 20 mg Ondansetron HCl (Ondansetron Hcl 4 Mg/2 Ml Vial) 4 mg IVPUSH Q8H PRN PRN Reason: Nausea and Vomiting Prednisone (Prednisone 20 Mg Tablet) 40 mg PO DAILY [facility] Last Admin: 09/17/23 09:35 Dose: 40 mg Sodium Chloride (0.9 % Sodium Chloride Flush 3 Ml Syringe) 3 ml IVFLUSH QSHIFT [facility] Vitamin D (Cholecalciferol (Vitamin D3) 25 Mcg Tablet) 25 mcg PO DAILY [facility] Last Admin: 09/17/23 09:36 Dose: 25 mcg Home Medications ?Medication ?Instructions ?Recorded ?Confirmed ?Last Taken ?Type metoprolol succinate 50 mg 50 mg PO DAILY 08/19/23 09/17/23 09/16/23 History tablet,extended release 24 hr cholecalciferol (vitamin D3) 25 25 mcg PO DAILY 08/31/23 09/17/23 09/16/23 History mcg (1,000 unit) tablet (Vitamin D3) multivitamin 1 tab PO DAILY 08/31/23 09/17/23 09/16/23 History omeprazole 20 mg capsule,delayed 20 mg PO DAILY@0630 09/17/23 09/17/23 09/16/23 History release prednisone 20 mg tablet 40 mg PO DAILY 09/17/23 09/17/23 Unknown History Physical Exam Vital Signs: Vital Signs: Last Vital Signs Temp 97.6 F 09/17/23 13:16 Pulse 94 09/17/23 13:16 Resp 18 09/17/23 13:16 BP 133/71 09/17/23 13:16 Pulse Ox 98 09/17/23 13:16 O2 Del Method Room Air 09/17/23 13:16 BMI result Body Mass Index 23.8 Neuro: Other: Normal neurological examination Results Labs 09/17/23 06:10 09/17/23 06:10 Labs: Short CBC 09/17/23 Range/Units 06:10 WBC 4.0 L (4.8-10.8) X10*3/uL Hgb 8.4 L (12.0-16.0) g/dl Hct 25.0 L (37.0-47.0) % Plt Count 56 L (160-400) X10*3/uL BMP 09/17/23 06:10 Sodium 138 Potassium 3.7 Chloride 101 Carbon Dioxide 25 BUN 22 H Creatinine 0.61 Calcium 8.9 Liver Function 09/17/23 Range/Units 06:10 Total Bilirubin 3.0 H (0.0-1.0) mg/dL Direct Bilirubin 1.8 H (0.0-0.5) mg/dL AST 86 H (5-31) U/L ALT 152 H (0-31) U/L Alkaline Phosphatase 835 H (39-117) U/L Albumin 2.9 L (3.5-5.0) g/dL Assessment and Plan (1) Facial paresthesia: Status: Acute Possible migraine equivalent associated with the headache. Patient has a history of migraines with visual aura in the past. MRI shows no acute stroke. Recommendation no further intervention necessary. Followup MRI of the brain in 6 months for followup of MRI signal abnormality in the left temporal pole Procedures Date of Service Date of Service: 09/17/23
[2023-09-17] MEDS: gadobutroL 7.5 ML VIAL IVPUSH (18:46)
[2023-09-17] MEDS: Acetaminophen 325 MG TABLET 650 MG PO (19:45)
[2023-09-17] MEDS: Lidocaine 4 % Patch ADH..PATCH 1 PATCH TRANSDERMA (19:54)
[2023-09-17] MEDS: oxyCODONE HCl Immed Release 5 MG TABLET PO (21:43)
[2023-09-18] VITALS (8 sets, daily range): BP systolic 122–166; BP diastolic 60–72; PULSE 85–106; RESP 18–20; TEMP 36.3–37.4; O2SAT 93–97
[2023-09-18] MEDS: oxyCODONE HCl Immed Release 5 MG TABLET PO ×4 (03:50→22:25)
[2023-09-18] MEDS: Omeprazole 20 MG CAPSULE.DR PO (05:45)
[2023-09-18 06:20] LABS: Hematocrit 23.5 % (37.0-47.0); Hemoglobin 7.9 g/dl (12.0-16.0); Mean Corpuscular HGB Conc 33.6 g/dl (31.0-35.0); Mean Corpuscular Hemoglobin 27.8 pg (27.0-33.0); Mean Corpuscular Volume 82.7 fL (80.0-98.0); Mean Platelet Volume 10.4 fL (9.4-12.3); Red Blood Count 2.84 X10*6/uL (4.20-5.50); Red Cell Distribution Width 17.5 % (11.0-16.0); White Blood Count 3.8 X10*3/uL (4.8-10.8)
[2023-09-18 06:22] LABS: NRBC Pct Auto 4.5 /100WBC (0.0-0.2); Platelet Count 66 X10*3/uL (160-400)
--- NOTE | 2023-09-18 06:26 | PC.NURSE ---
Pt is aox4, c/o BL shoulder pain. Asked this RN is the pain came from her receiving an MRI. Questioned pt about past MRIs and she states I always have pain afterwards . Questions pt about possible past reactions to contrast, pt denied any. She is able to make her needs known, utilizes call kulkarni appropriately. She is x1 assist OOB w/walker to bathroom. Call kulkarni within reach, bed alarm on. Safety maintained throughout shift.
[2023-09-18 06:47] LABS: Alanine Aminotransferase 131 U/L (0-31); Albumin Level 2.7 g/dL (3.5-5.0); Alkaline Phosphatase 798 U/L (39-117); Anion Gap 14 (12-20); Aspartate Amino Transferase 79 U/L (5-31); Bilirubin Total 3.9 mg/dL (0.0-1.0); Blood Urea Nitrogen 22 mg/dL (9-16); Calcium 8.6 mg/dL (8.4-10.2); Carbon Dioxide 25 mmol/L (22-29); Chloride 101 mmol/L (96-108); Estimated Glomerular Filt Rate > 60; Glucose Random 97 mg/dL (60-115); Potassium 3.8 mmol/L (3.3-5.1); Sodium 136 mmol/L (135-145); Total Protein 5.1 g/dL (6.5-8.0)
[2023-09-18 07:53] LABS: Band Neutrophils Percent 4 % (3-5); Lymphocytes Absolute Manual 0.4 X10*3/uL (1.2-4.9); Lymphocytes Percent Manual 11 % (20-40); Metamyelocytes Absolute 0.2 X10*3/uL; Metamyelocytes Percent 4 %; Myelocytes Absolute 0.1 X10*/uL; Myelocytes Percent 3 %; Neutrophils Absolute Manual 3.1 X10*3/uL (2.0-8.3); Neutrophils Percent Manual 78 % (45-73); Nucleated Red Blood Cells 6 /100WBC (0-0)
[2023-09-18 07:54] LABS: Polychromasia 1+ (0-2) /OIF; RBC Morphology NOTED
[2023-09-18 07:55] LABS: Microcytosis 1+ (5-14) /OIF
[2023-09-18 07:56] LABS: Hypochromasia 1+ (5-14) /OIF; Platelet Estimate DECREASED (NORMAL); Platelet Morphology Comment NORMAL
[2023-09-18] MEDS: Lidocaine 4 % Patch ADH..PATCH 1 PATCH TRANSDERMA (08:26)
[2023-09-18] MEDS: Aspirin Enteric Coated 81 MG TABLET.DR PO (08:27)
[2023-09-18] MEDS: Cholecalciferol (Vitamin D3) 25 MCG TABLET PO (08:27)
[2023-09-18] MEDS: Multivitamin TABLET 1 TAB PO (08:27)
[2023-09-18] MEDS: predniSONE 20 MG TABLET 40 MG PO (08:27)
[2023-09-18] MEDS: Metoprolol Succinate ER 50 MG TAB.ER.24H PO (08:27)
[2023-09-18] MEDS: Enoxaparin Sodium 40 MG/0.4 ML SYRINGE SUBCUT (08:27)
[2023-09-18] MEDS: 0.9 % Sodium Chloride Flush 3 ML SYRINGE IVFLUSH ×2 (08:28→21:02)
--- NOTE | 2023-09-18 08:29 | MHC.CM.PN ---
CM met with Patient at bedside and addressed SARAH with her, providing Patient with the original and a copy has been placed on the chart. Patient was recently at [facility] for a very brief time but she will not return there. Patient will benefit from a PT Eval to assist with disposition; her goal is to go home with new [facility]. CM has initiated and will follow for dc planning. Patient lives in a house with her disabled ;per Patient, he is mostly self sufficient. PCP is Dr. Li Keller and Patient's Daughter/Isabel is the HCP.
--- NOTE | 2023-09-18 09:04 | P.CNHO_ITS ---
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 Patient: known to practice within the last 3 years Consult date: 09/18/23 Requesting Physician: Amarjit. Primary Care Provider: Unknown Physician Medical Summary: DIAGNOSIS: Multiple skull metastases. Pancytopenia. History of breast cancer. HPI - Consult Narrative Reason for consult: Consult for: 1. Pancytopenia. 2. Skull Bony metastases. Narrative: Jaclyn Looney is a 73 year old lady admitted with right facial droop. She complains she developed a severe headache, rarely slept in this a.m. She then developed numbness and tingling around her nose that progressed to her cheek and down to her chin. She was noted to have a right facial droop. She was transferred to [facility] for evaluation MRI of the brain revealed: Diffuse enhancement involving the osseous structures, including the calvarium, skull base, maxillofacial bones, and imaged cervical spinal column again concerning for widespread osseous metastatic disease. Thin reactive pachymeningeal enhancement along the bilateral cerebral convexities. 1.5 x 1.3 cm nodular enhancement within the anterior aspect of the left middle cranial fossa appears to be both intra and extra-axial with involvement of the left temporal pole as evidenced by lack of clearly delineated CSF plane on prior MRI. This is contiguous with osseous metastatic disease eroding the inferior aspect of the left sphenoid wing and a portion of the the posterolateral wall of the left orbit, better illustrated on prior CT. There is minimal extraosseous disease noted within the posterolateral left extraconal orbit abutting the posterior aspect of the left lateral rectus muscle (image 11,series 3) and possible extraosseous extension into the left temporalis fossa involving the deep fibers of the left temporalis muscle. There may also be minimal infiltration along the roof of the left pterygomaxillary fissure. Pulsation artifact versus metastases within the left greater than right occipital lobes (images 11-13, series 3) and apparent enhancement versus artifact within the posterior fossa would be better evaluated on 3-D MPRAGE/GUSMAN postcontrast sequences. Please refer to separate brain MRI for discussion of additional findings. Multiple anatomic findings that raise the concern for widespread osseous metastatic disease. There is parenchymal edema localized within the left anterior temporal lobe that may represent intracranial invasion of a metastasis involving the greater sphenoid wing. CTA of head and neck revealed: 5. Multilevel cervical spondylosis and significant spinal canal stenosis as discussed above. Cannot exclude cord impingement at these levels. Consider MRI of the cervical spine for further assessment if clinically warranted. She was recently admitted to the hospital with a 2 weeks stay, between 09/02 and 09/16, was just discharged yesterday. She was noted to have elevated LFTs. Pancytopenia. Liver biopsy revealed: Acute hepatitis with cholestasis. She was sent home on a steroid trial. Discharge summary: Leukocytosis of 11.0. Normocytic anemia with h/h 10.3/29.9%. Renal fx normal, lytes normal except for Na 134, Ca 10.7. Glucose 133. Initial trop 17.3, repeat 24.8. EKG shows sinus tach, no acute ischemic changes. Head CT negative for acute intracranial abnormality. CTA chest negative for PE, shows pleural parenchymal irregularity along the anterior/anterolateral aspect of the ELISA with punctate calcifications with bilateral pulmonary nodules. Patient was admitted to telemetry where monitor failed to demonstrate a pathological rhythms. Seen by Cardiology and a cardiac event was ruled out. Patient was seen in consultation by Gastroenterology and Hematology for abnormal liver function tests and pancytopenia. Autoimmune panel was drawn and was unremarkable. Ultimately patient underwent a liver biopsy which demonstrated medication induced hepatitis. She was started on steroids and over the next several days liver function tests improved as well as pancytopenia. Case was discussed with GI who recommended prednisone taper; 40 mg daily x7 days followed by 35 mg daily x7 days followed by 30 mg daily x7 days followed by 25 mg daily x7 days followed by 20 mg daily x7 days followed by 15 mg daily x7 days followed by 10 mg daily x7 days followed by 5 mg daily x7 days. Patient needs CBC and chemistry profile every 3 days until both pancytopenia and liver function tests have normalized. PAST MEDICAL HISTORY: Patient was treated for left breast cancer 24 years ago. She underwent lumpectomy followed by radiation therapy and 5 years of tamoxifen. She did not receive chemotherapy. She underwent hysterectomy around the same time. FAMILY HISTORY: This no family history of breast cancer or any other cancers that she can recall. No family history of diabetes either. 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 She is . Has 3 children. She used to smoke a pack a day quit few weeks ago. Denies alcohol. [facility] Medical History: Medical History (Last Reviewed 09/17/23 @ 09:07 by Mayank Rockwell DO) Cancer of breast Chest pain Hyperlipidemia Irregular heart beat Kidney stone Type 2 diabetes mellitus with hyperglycemia, without long-term current use of insulin Functional capacity: bed bound Patient : No Family History: Family History (Last Reviewed 09/17/23 @ 09:07 by Mayank Rockwell DO) Mother Tuberculosis Brother Myocardial infarction, Onset Age: 55 Skin cancer Father Skin cancer Surgical History: Surgical History (Last Reviewed 09/17/23 @ 09:07 by Mayank Rockwell DO) H/O colonoscopy History of lumpectomy of left breast History of surgery on arm Hx of thumb surgery S/P JUSTIN (total abdominal hysterectomy) Social History: Social History (Last Reviewed 09/17/23 @ 09:07 by Mayank Rockwell DO) Living Situation History: Household Members: Spouse Housing: House Do you presently have visiting nurse or other home services: No Alcohol History Details: 1. How often do you have a drink containing alcohol?: a. Never 3. How often do you have six or more drinks on one occasion?: a. Never AUDIT-C Alcohol total score: 0 Currently Displaying Signs/Symptoms of Alcohol Withdrawal: No Tobacco History: Patient Tobacco Use Status: Never used Tobacco Tobacco use type: Cigarette Smoked in Last 30 Days: No e-Cigarette/Vaping Use: Never Used Patient Interested in Nicotine Replacement: No Patient Given Instructions on How to Stop Smoking: No Second Hand Smoke Exposure: No Substance Use History: Use of substances other than those prescribed or required for medical reasons : No Currently Displaying Signs/Symptoms of Drug Intoxication Withdrawal: No Any prior treatment program specific to substance use: No Domestic Abuse History: Have you been hit, kicked, punched, or otherwise hurt by someone within the past year? If so, by whom?: No Do you feel safe in your current relationship?: Yes Is there a partner from a previous relationship who is making you feel unsafe now?: No Are you made to feel afraid or neglected: No Healthcare Practices: Protestant Healthcare Practices: Jehov[employer] Advance Directives: Advance Directives: No Advance Directives Information Provided: No Homicidal Assessment: Do you have a plan to hurt others: No Plan Nutrition Assessment: Recently lost weight without trying: Yes How much weight loss: 2-13 pounds Eating poorly because of decreased appetite: No Nutrition screen score: 3 Nutrition Risks: No Nutritional Risk Patient : No : No Poor oral hygiene: No Occupation Assessmet: service: No Current occupational status: retired Home Medications and Allergies Current Medications: Current Medications Acetaminophen (Acetaminophen 325 Mg Tablet) 650 mg PO Q6H PRN PRN Reason: Pain, Mild (Pain Scale 1-3), fever or headache Last Admin: 09/17/23 19:45 Dose: 650 mg Aspirin (Aspirin Enteric Coated 81 Mg Tablet.) 81 mg PO DAILY [facility] Last Admin: 09/18/23 08:27 Dose: 81 mg Calcium Carbonate (Calcium Carbonate 750 Mg Tab.Chew) 750 mg PO Q4H PRN PRN Reason: Heartburn Enoxaparin Sodium (Enoxaparin Sodium 40 Mg/0.4 Ml Syringe) 40 mg SUBCUT Q24H [facility] Last Admin: 09/18/23 08:27 Dose: 40 mg Lidocaine (Lidocaine 4 % Patch Adh..Patch) 1 patch TRANSDERMA DAILY [facility]; Protocol Last Admin: 09/18/23 08:26 Dose: 1 patch Magnesium Hydroxide (Milk Of Magnesia 30 Ml Oral.Susp) 30 ml PO DAILY PRN PRN Reason: Constipation Melatonin (Melatonin 3 Mg Tablet) 6 mg PO BEDTIME PRN PRN Reason: Insomnia Metoprolol Succinate (Metoprolol Succinate Er 50 Mg Tab.Er.24h) 50 mg PO DAILY [facility]; Protocol Last Admin: 09/18/23 08:27 Dose: 50 mg Multivitamins/Vitamin C (Multivitamin Tablet) 1 tab PO DAILY [facility] Last Admin: 09/18/23 08:27 Dose: 1 tab Omeprazole (Omeprazole 20 Mg Capsule.) 20 mg PO DAILY@0630 [facility] Last Admin: 09/18/23 05:45 Dose: 20 mg Ondansetron HCl (Ondansetron Hcl 4 Mg/2 Ml Vial) 4 mg IVPUSH Q8H PRN PRN Reason: Nausea and Vomiting Oxycodone HCl (Oxycodone Hcl Immed Release 5 Mg Tablet) 5 mg PO Q6H PRN PRN Reason: shoulder pain Last Admin: 09/18/23 03:50 Dose: 5 mg Prednisone (Prednisone 20 Mg Tablet) 40 mg PO DAILY [facility] Last Admin: 09/18/23 08:27 Dose: 40 mg Sodium Chloride (0.9 % Sodium Chloride Flush 3 Ml Syringe) 3 ml IVFLUSH QSHIFT [facility] Last Admin: 09/18/23 08:28 Dose: 3 ml Vitamin D (Cholecalciferol (Vitamin D3) 25 Mcg Tablet) 25 mcg PO DAILY [facility] Last Admin: 09/18/23 08:27 Dose: 25 mcg Home Medications ?Medication ?Instructions ?Recorded ?Confirmed ?Type metoprolol succinate 50 mg 50 mg PO DAILY 08/19/23 09/17/23 History tablet,extended release 24 hr cholecalciferol (vitamin D3) 25 25 mcg PO DAILY 08/31/23 09/17/23 History mcg (1,000 unit) tablet (Vitamin D3) multivitamin 1 tab PO DAILY 08/31/23 09/17/23 History omeprazole 20 mg capsule,delayed 20 mg PO DAILY@0630 09/17/23 09/17/23 History release prednisone 20 mg tablet 40 mg PO DAILY 09/17/23 09/17/23 History Allergies Allergy/AdvReac Type Severity Reaction Status Date / Time sulfamethoxazole Allergy Intermediate HIVES Verified 09/17/23 05:52 [From Bactrim] trimethoprim [From Bactrim] Allergy Intermediate HIVES Verified 09/17/23 05:52 amoxicillin [Amoxicillin] Allergy Mild RASH Verified 09/17/23 05:52 Sulfa (Sulfonamide Allergy Unknown Hives Verified 09/17/23 05:52 Antibiotics) Physical Exam Vital signs: Vital Signs Temp 97.4 F 09/18/23 04:00 Pulse 106 H 09/18/23 04:00 Resp 20 09/18/23 04:00 BP 162/68 H 09/18/23 04:00 Pulse Ox 95 09/18/23 04:00 O2 Del Method Room Air 09/18/23 04:00 Intake & Output 09/17/23 09/18/23 09/18/23 18:59 06:59 18:59 Intake Total 120 / 120 Output Total 0 / 0 Balance 120 / 120 Urine Output (Average ml/kg/hr) 0.00 0.00 Intake: Intake, Oral Amount 120 / 120 Output: Output, Urine Amount 0 / 0 Other: Eating (Feeding) Ability Independent Number of Unmeasured Voids 1 Number of Bowel Movements 0 Urine Bathroom Urine Color Yellow Last Bowel Movement 09/17/23 09/17/23 Weight 66.9 kg Hem/Onc Consult Result - Labs CBC & Chem 7: 09/18/23 05:12 09/18/23 05:12 Labs: Short CBC 09/18/23 Range/Units 05:12 WBC 3.8 L (4.8-10.8) X10*3/uL Hgb 7.9 L (12.0-16.0) g/dl Hct 23.5 L (37.0-47.0) % Plt Count 66 L (160-400) X10*3/uL BMP 09/18/23 05:12 Sodium 136 Potassium 3.8 Chloride 101 Carbon Dioxide 25 BUN 22 H Creatinine 0.69 Calcium 8.6 Liver Function 09/18/23 Range/Units 05:12 Total Bilirubin 3.9 H (0.0-1.0) mg/dL AST 79 H (5-31) U/L ALT 131 H (0-31) U/L Alkaline Phosphatase 798 H (39-117) U/L Albumin 2.7 L (3.5-5.0) g/dL Assessment and Plan Patient Active problem list reviewed?: Yes (1) Cancer, metastatic to bone Status: Acute Assessment and plan: 73-year-old lady with a remote history of breast cancer, the right breast, status post lumpectomy and radiation. She now presents with a right facial droop. MRI of the brain revealed: Diffuse enhancement involving the osseous structures, including the calvarium, skull base, maxillofacial bones, and imaged cervical spinal column again concerning for widespread osseous metastatic disease. Thin reactive pachymeningeal enhancement along the bilateral cerebral convexities. 1.5 x 1.3 cm nodular enhancement within the anterior aspect of the left middle cranial fossa appears to be both intra and extra-axial with involvement of the left temporal pole as evidenced by lack of clearly delineated CSF plane on prior MRI. This is contiguous with osseous metastatic disease eroding the inferior aspect of the left sphenoid wing and a portion of the the posterolateral wall of the left orbit, better illustrated on prior CT. There is minimal extraosseous disease noted within the posterolateral left extraconal orbit abutting the posterior aspect of the left lateral rectus muscle (image 11,series 3) and possible extraosseous extension into the left temporalis fossa involving the deep fibers of the left temporalis muscle. There may also be minimal infiltration along the roof of the left pterygomaxillary fissure. Pulsation artifact versus metastases within the left greater than right occipital lobes (images 11-13, series 3) and apparent enhancement versus artifact within the posterior fossa would be better evaluated on 3-D MPRAGE/GUSMAN postcontrast sequences. Please refer to separate brain MRI for discussion of additional findings. Multiple anatomic findings that raise the concern for widespread osseous metastatic disease. There is parenchymal edema localized within the left anterior temporal lobe that may represent intracranial invasion of a metastasis involving the greater sphenoid wing. Pancytopenia likely related to bone marrow metastases. LFT abnormalities are likely also related to micro metastatic disease in the liver. PLAN: To proceed with a bone scan to look for evidence of systemic bony metastases.(will be done in the morning.) This will help provide a safer site for biopsy. Other option is to proceed with a bone marrow aspirate and biopsy. Will repeat brain MRI with 3-D MPRAGE/GUSMAN postcontrast sequences. For now, focus on pain management and symptoms alleviation. Thank you for the consult, - Time Spent With Patient Time Spent with Patient (in minutes): 30
[2023-09-18 11:31] LABS: Glucose, Whole Blood 168 mg/dL (60-115)
[2023-09-18] MEDS: Morphine Sulfate 2 MG/ML CARTRIDGE IVPUSH ×2 (12:41→21:01)
--- NOTE | 2023-09-18 14:13 | MHC.CM.PN ---
Patient has been changed from OBSERVATION to INPATIENT; CM met with Patient at bedside and addressed IMM with her, providing Patient with the original and a copy has been placed on the chart.
--- NOTE | 2023-09-18 15:18 | P.PNIM_ITS ---
Subjective Subjective Date of Service: 09/19/23 Interval History: Being followed for right facial paresthesias and headache. Complaining of persistent mild right facial numbness and headache, denies weakness, no speech impairment, no abdominal pain, no nausea no vomiting, persistent decreased appetite. Review of Systems All other system reviewed and negative. Physical Exam 2 Vital Signs: Vital Signs: Last Vital Signs Temp 98.3 F 09/18/23 14:47 Pulse 93 09/18/23 14:47 Resp 20 09/18/23 14:47 BP 149/62 H 09/18/23 14:47 Pulse Ox 95 09/18/23 14:47 O2 Del Method Room Air 09/18/23 14:47 BMI result Body Mass Index 23.8 Const: Other: General awake alert x3 no acute distress Sclera icteric Neck supple no JVD. CVS regular rate rhythm, tachycardic Respiratory lungs clear to auscultation, no respiratory distress, no wheeze, no rhonchi. Gastrointestinal abdomen soft, non tender, bowel sounds audible, no guarding , no rigidity. Extremities no edema. Neuro non focal , face symmetrical Skin jaundiced Objective Data Active Medications Acetaminophen (Acetaminophen 325 Mg Tablet) 650 mg PO Q6H PRN PRN Reason: Pain, Mild (Pain Scale 1-3), fever or headache Last Admin: 09/17/23 19:45 Dose: 650 mg Documented By: BIRD Comments: Pt req tylenol Aspirin (Aspirin Enteric Coated 81 Mg Tablet.) 81 mg PO DAILY [facility] Last Admin: 09/18/23 08:27 Dose: 81 mg Documented By: TUSHAR Calcium Carbonate (Calcium Carbonate 750 Mg Tab.Chew) 750 mg PO Q4H PRN PRN Reason: Heartburn Enoxaparin Sodium (Enoxaparin Sodium 40 Mg/0.4 Ml Syringe) 40 mg SUBCUT Q24H [facility] Last Admin: 09/18/23 08:27 Dose: 40 mg Documented By: TUSHAR Lidocaine (Lidocaine 4 % Patch Adh..Patch) 1 patch TRANSDERMA DAILY [facility]; Protocol Last Admin: 09/18/23 08:26 Dose: 1 patch Documented By: TUSHAR Magnesium Hydroxide (Milk Of Magnesia 30 Ml Oral.Susp) 30 ml PO DAILY PRN PRN Reason: Constipation Melatonin (Melatonin 3 Mg Tablet) 6 mg PO BEDTIME PRN PRN Reason: Insomnia Metoprolol Succinate (Metoprolol Succinate Er 50 Mg Tab.Er.24h) 50 mg PO DAILY [facility]; Protocol Last Admin: 09/18/23 08:27 Dose: 50 mg Documented By: TUSHAR Morphine Sulfate (Morphine Sulfate 2 Mg/Ml Cartridge) 2 mg IVPUSH Q4H PRN; Protocol PRN Reason: Pain, Severe (Pain Scale 7-10) Last Admin: 09/18/23 12:41 Dose: 2 mg Documented By: TUSHAR Multivitamins/Vitamin C (Multivitamin Tablet) 1 tab PO DAILY [facility] Last Admin: 09/18/23 08:27 Dose: 1 tab Documented By: TUSHAR Omeprazole (Omeprazole 20 Mg Capsule.Dr) 20 mg PO DAILY@0630 [facility] Last Admin: 09/18/23 05:45 Dose: 20 mg Documented By: RAULITO Ondansetron HCl (Ondansetron Hcl 4 Mg/2 Ml Vial) 4 mg IVPUSH Q8H PRN PRN Reason: Nausea and Vomiting Oxycodone HCl (Oxycodone Hcl Immed Release 5 Mg Tablet) 5 mg PO Q6H PRN PRN Reason: shoulder pain Last Admin: 09/18/23 10:27 Dose: 5 mg Documented By: TUSHAR Prednisone (Prednisone 20 Mg Tablet) 40 mg PO DAILY [facility] Last Admin: 09/18/23 08:27 Dose: 40 mg Documented By: TUSHAR Sodium Chloride (0.9 % Sodium Chloride Flush 3 Ml Syringe) 3 ml IVFLUSH QSHIFT [facility] Last Admin: 09/18/23 08:28 Dose: 3 ml Documented By: TUSHAR Vitamin D (Cholecalciferol (Vitamin D3) 25 Mcg Tablet) 25 mcg PO DAILY [facility] Last Admin: 09/18/23 08:27 Dose: 25 mcg Documented By: TUSHAR Labs 09/18/23 05:12 09/18/23 05:12 Labs: Laboratory Results - last 24 hr 09/17/23 09/18/23 09/18/23 15:46 05:12 11:27 MCV 82.7 MCH 27.8 MCHC 33.6 RDW 17.5 H Plt Count 66 L MPV 10.4 Immature Gran % (Auto) Cancelled Neut % (Auto) Cancelled Lymph % (Auto) Cancelled [place] % (Auto) Cancelled Eos % (Auto) Cancelled Baso % (Auto) Cancelled Lymph # (Auto) Cancelled [place] # (Auto) Cancelled Eos # (Auto) Cancelled Baso # (Auto) Cancelled Abs Immat Gran (auto) Cancelled Absolute Neuts (auto) Cancelled Absolute Nucleated RBC 0.170 H Nucleated RBC % (auto) 4.5 H Neutrophils % (Manual) 78 H Band Neutrophils % 4 Lymphocytes % (Manual) 11 L Metamyelocytes % 4 Myelocytes % 3 Abs Neuts (Manual) 3.1 Lymphocytes # (Manual) 0.4 L Metamyelocytes # 0.2 Myelocytes # 0.1 Nucleated RBCs 6 H Platelet Estimate DECREASED Plt Morphology Comment NORMAL RBC Morphology NOTED Polychromasia 1+ (0-2) Hypochromasia 1+ (5-14) Microcytosis 1+ (5-14) Anion Gap 14 Estim Creat Clear Calc 70.0 Estimated GFR > 60 POC Glucose 269 H 168 H Random Glucose 97 Calcium 8.6 Total Bilirubin 3.9 H AST 79 H ALT 131 H Alkaline Phosphatase 798 H Total Protein 5.1 L Albumin 2.7 L Assessment and Plan (1) Cancer, metastatic to bone: Status: Acute (2) Facial paresthesia: Status: Acute (3) Drug induced liver disease: Status: Acute (4) Thrombocytopenia: Status: Acute (5) Abnormal LFTs: Status: Acute Plan 73 female recently admitted for 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 Patient states she awoke from sleep with what she describes as a migraine and developed numbness and tingling around her nose that progressed to her right cheek and right jaw. Staff at rehab were concerned that there might be a facial asymmetry as well. Transferred to [facility]. Initial workup with head CT, CTA head and neck failed to demonstrate acute pathology. She will be admitted to complete workup for same 1. Facial paresthesias/headache. Persistent mild right facial numbness, and mild headache. Initially felt symptoms related to migraine however MRI brain showed diffuse and has been involving the osseous structure including calvarium, skull bone, maxillofacial bones and imaged cervical spinal column. Case discussed with [facility] Tho GIANG regarding biopsy, he reviewed films and recommend outpatient follow-up with repeat CT in 1 week. Oncology consult obtain case discussed with Dr. Johnson she recommend bone scan, bone marrow examination and repeat MRI with 3-D MPRAGE/GUSMAN postcontrast sequences to better look at the enhancement versus artifact within the posterior fossa. Inform patient and regarding MRI findings and further workup. 2. Drug-induced liver disease -total bili remains elevated ,transaminases stable. Alk-phos remains elevated but stable -continue prednisone taper as outlined -outpatient GI follow-up 3. Pancytopenia [place] to be related to medication reaction, noted to have drop in hematocrit no acute bleeding noted Hematology plan bone marrow biopsy, follow CBC , transfuse packed RBC as needed. 4. Type 2 diabetes -point of care acceptable on steroids, hemoglobin A1c 6.9 -lispro correctional scale -follow clinically 5. Hyperlipidemia continue to hold statins. 6. Bilateral shoulder and back pain question musculoskeletal, will follow bone scan. Full code Lovenox Patient will require continued inpatient hospitalization due to further testing regarding abnormal MRI study, with persistent headaches paresthesias and continued expert consultation . Quality Quality Stroke Does the patient have a stroke diagnosis?: No VTE Prior VTE?: No VTE Risk Level:: Medical - moderate - high VTE Device Contraindication: Treatment Not Indicated VTE Drug Contraindication: N/A - Med Ordered
[2023-09-18 18:06] LABS: Appearance Urine Clear; Color Urine Dark Yellow; Glucose Urine UA 500 mg/dL (Negative); Leukocyte Esterase Urine Negative (Negative); Nitrite Urine Negative (Negative); Specific Gravity - Urine 1.015 (1.005-1.025); UMIC TRIGGER UACC YES; Urine Blood Moderate (2+) (Negative); Urine Ketones Negative (Negative); Urine Protein 30 (1+) mg/dL (Neg-Trace)
[2023-09-18 18:23] LABS: Bacteria Urine None Seen (None Seen); Hyaline Casts Urine 0-2 /LPF (0-2); RBC Urine >20 /HPF (0-2); Squamous Epithelial Cell Urine 0-2 /HPF (0-2); WBC Urine 0-5 /HPF (0-5)
[2023-09-18] MEDS: Acetaminophen 325 MG TABLET 650 MG PO (22:25)
[2023-09-19] VITALS (8 sets, daily range): BP systolic 140–168; BP diastolic 65–75; PULSE 93–104; RESP 17–22; TEMP 36.2–37.1; O2SAT 93–96
[2023-09-19] MEDS: hydrOXYzine HCL 50 MG TABLET PO ×3 (00:11→18:10)
[2023-09-19] MEDS: Morphine Sulfate 2 MG/ML CARTRIDGE IVPUSH ×3 (00:18→13:55)
[2023-09-19] MEDS: oxyCODONE HCl Immed Release 5 MG TABLET PO ×3 (05:12→18:09)
[2023-09-19] MEDS: Omeprazole 20 MG CAPSULE.DR PO (05:12)
[2023-09-19] MEDS: Lidocaine 4 % Patch ADH..PATCH 1 PATCH TRANSDERMA (08:12)
[2023-09-19] MEDS: Cholecalciferol (Vitamin D3) 25 MCG TABLET PO (08:13)
[2023-09-19] MEDS: Multivitamin TABLET 1 TAB PO (08:13)
[2023-09-19] MEDS: Metoprolol Succinate ER 50 MG TAB.ER.24H PO (08:13)
[2023-09-19] MEDS: predniSONE 20 MG TABLET 40 MG PO (08:13)
[2023-09-19] MEDS: 0.9 % Sodium Chloride Flush 3 ML SYRINGE IVFLUSH ×3 (08:15→20:50)
--- NOTE | 2023-09-19 10:22 | MHC.CM.PN ---
Per Rounds discussion, Patient needs further work up (Bone Marrow exam today)and will need a PT Eval to assist with disposition. CM will follow.
[2023-09-19] MEDS: gadobutroL 7.5 ML VIAL IVPUSH (10:38)
[2023-09-19] MEDS: Acetaminophen 325 MG TABLET 650 MG PO ×2 (11:10→18:09)
--- NOTE | 2023-09-19 11:47 | P.PNIM_ITS ---
Subjective Subjective Date of Service: 09/19/23 Interval History: Being followed for right facial paresthesias, headache and abnormal MRI. Complaining of lower back pain, bilateral shoulder pain, complaining of difficulty moving in bed, decreased appetite, no fevers no chills, no abdominal pain. Review of Systems All other system reviewed and are negative. Physical Exam 2 Vital Signs: Vital Signs: Last Vital Signs Temp 97.1 F 09/19/23 11:34 Pulse 99 09/19/23 11:34 Resp 18 09/19/23 11:34 BP 168/75 H 09/19/23 11:34 Pulse Ox 96 09/19/23 11:34 O2 Del Method Room Air 09/19/23 11:34 BMI result Body Mass Index 23.8 Const: Other: General awake alert x3 , appears uncomfortable due to bilateral shoulder and lower back pain Sclera icteric Neck supple no JVD. CVS regular rate rhythm, tachycardic Respiratory lungs clear to auscultation, no respiratory distress, no wheeze, no rhonchi. Gastrointestinal abdomen soft, non tender, bowel sounds audible, no guarding , no rigidity. Extremities no edema. Neuro non focal , face symmetrical Skin jaundiced psyche anxious Objective Data Active Medications Acetaminophen (Acetaminophen 325 Mg Tablet) 650 mg PO Q6H PRN PRN Reason: Pain, Mild (Pain Scale 1-3), fever or headache Last Admin: 09/19/23 11:10 Dose: 650 mg Documented By: ELLI Calcium Carbonate (Calcium Carbonate 750 Mg Tab.Chew) 750 mg PO Q4H PRN PRN Reason: Heartburn Hydroxyzine HCl (Hydroxyzine Hcl 50 Mg Tablet) 50 mg PO Q6H PRN PRN Reason: anxiety/restlessness Last Admin: 09/19/23 08:13 Dose: 50 mg Documented By: ELLI Lidocaine (Lidocaine 4 % Patch Adh..Patch) 1 patch TRANSDERMA DAILY [facility]; Protocol Last Admin: 09/19/23 08:12 Dose: 1 patch Documented By: ELLI Magnesium Hydroxide (Milk Of Magnesia 30 Ml Oral.Susp) 30 ml PO DAILY PRN PRN Reason: Constipation Melatonin (Melatonin 3 Mg Tablet) 6 mg PO BEDTIME PRN PRN Reason: Insomnia Metoprolol Succinate (Metoprolol Succinate Er 50 Mg Tab.Er.24h) 50 mg PO DAILY [facility]; Protocol Last Admin: 09/19/23 08:13 Dose: 50 mg Documented By: ELLI Morphine Sulfate (Morphine Sulfate 2 Mg/Ml Cartridge) 2 mg IVPUSH Q4H PRN; Protocol PRN Reason: Pain, Severe (Pain Scale 7-10) Last Admin: 09/19/23 08:14 Dose: 2 mg Documented By: ELLI Multivitamins/Vitamin C (Multivitamin Tablet) 1 tab PO DAILY [facility] Last Admin: 09/19/23 08:13 Dose: 1 tab Documented By: ELLI Omeprazole (Omeprazole 20 Mg Capsule.Dr) 20 mg PO DAILY@0630 [facility] Last Admin: 09/19/23 05:12 Dose: 20 mg Documented By: DARNELL Ondansetron HCl (Ondansetron Hcl 4 Mg/2 Ml Vial) 4 mg IVPUSH Q8H PRN PRN Reason: Nausea and Vomiting Oxycodone HCl (Oxycodone Hcl Immed Release 5 Mg Tablet) 5 mg PO Q6H PRN PRN Reason: shoulder pain Last Admin: 09/19/23 11:10 Dose: 5 mg Documented By: ELLI Prednisone (Prednisone 20 Mg Tablet) 40 mg PO DAILY [facility] Last Admin: 09/19/23 08:13 Dose: 40 mg Documented By: ELLI Sodium Chloride (0.9 % Sodium Chloride Flush 3 Ml Syringe) 3 ml IVFLUSH QSHIFT [facility] Last Admin: 09/19/23 08:15 Dose: 3 ml Documented By: ELLI Vitamin D (Cholecalciferol (Vitamin D3) 25 Mcg Tablet) 25 mcg PO DAILY [facility] Last Admin: 09/19/23 08:13 Dose: 25 mcg Documented By: ELLI Labs 09/18/23 05:12 09/18/23 05:12 Labs: Laboratory Results - last 24 hr 09/18/23 16:52 Urine Color Dark Yellow Urine Appearance Clear Urine pH 7.0 Ur Specific [place] 1.015 Urine Protein 30 (1+) H Urine Glucose (UA) 500 H Urine Ketones Negative Urine Blood Moderate (2+) H Urine Nitrite Negative Ur Leukocyte Esterase Negative Urine RBC >20 H Urine WBC 0-5 Ur Squamous Epith Cells 0-2 Urine Bacteria None Seen Hyaline Casts 0-2 Assessment and Plan (1) Cancer, metastatic to bone: Status: Acute (2) Facial paresthesia: Status: Acute (3) Drug induced liver disease: Status: Acute (4) Thrombocytopenia: Status: Acute (5) Abnormal LFTs: Status: Acute Plan 73 female recently admitted for 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 Patient states she awoke from sleep with what she describes as a migraine and developed numbness and tingling around her nose that progressed to her right cheek and right jaw. Staff at rehab were concerned that there might be a facial asymmetry as well. Transferred to [facility] [place] [facility]. Initial workup with head CT, CTA head and neck failed to demonstrate acute pathology. She will be admitted to complete workup for same 1. Facial paresthesias/headache. Facial numbness resolved persistent headache Initially felt symptoms related to migraine however MRI brain showed diffuse and has been involving the osseous structure including calvarium, skull bone, maxillofacial bones and imaged cervical spinal column. Case discussed with [facility] Tho GIANG regarding biopsy, he reviewed films and recommend outpatient follow-up with repeat CT in 1 week. Scheduled for bone scan, bone marrow examination and repeat MRI with 3-D MPRAGE/GUSMAN postcontrast sequences to better look at the enhancement versus artifact within the posterior fossa. 2. Drug-induced liver disease -total bili remains elevated ,transaminases stable. Alk-phos remains elevated but stable -continue prednisone taper as outlined -outpatient GI follow-up 3. Pancytopenia [place] to be related to medication reaction, noted to have drop in hematocrit ,no acute bleeding noted bone marrow biopsy today, follow CBC , transfuse packed RBC as needed. 4. Type 2 diabetes -point of care acceptable on steroids, hemoglobin A1c 6.9, previously was on metformin currently on hold due to question cause of drug-induced liver disease. -follow clinically 5. Hyperlipidemia continue to hold statins. 6. Bilateral shoulder and back pain question musculoskeletal, vs metastatic dz, will follow bone scan. Treat with hot packs/Aspercreme/lidocaine patch. Full code Lovenox Patient will require continued inpatient hospitalization due to further testing regarding abnormal MRI study, with persistent headaches, paresthesias abnormal LFTs and CBC and continued expert consultation . Quality Quality Stroke Does the patient have a stroke diagnosis?: No VTE Prior VTE?: No VTE Risk Level:: Medical - moderate - high VTE Device Contraindication: Treatment Not Indicated VTE Drug Contraindication: N/A - Med Ordered
[2023-09-19] MEDS: oxyCODONE HCl ER 10 MG TAB.ER.12H PO (20:47)
[2023-09-19] MEDS: HYDROmorphone HCl 1 MG/ML SYRINGE IVPUSH ×2 (20:49→23:59)
[2023-09-19] MEDS: ondansetron HCL 4 MG/2 ML VIAL IVPUSH (23:49)
[2023-09-20] VITALS (8 sets, daily range): BP systolic 139–167; BP diastolic 63–74; PULSE 100–120; RESP 18–24; TEMP 36.7–37.3; O2SAT 88–98
[2023-09-20] MEDS: Omeprazole 20 MG CAPSULE.DR PO (06:06)
[2023-09-20] MEDS: HYDROmorphone HCl 1 MG/ML SYRINGE IVPUSH (06:06)
[2023-09-20] MEDS: Docusate Sodium 100 MG/10 ML LIQUID PO ×2 (06:35→20:18)
[2023-09-20 07:56] LABS: Glucose, Whole Blood 94 mg/dL (60-115)
[2023-09-20 08:14] LABS: Hematocrit 23.7 % (37.0-47.0); Hemoglobin 7.9 g/dl (12.0-16.0); Mean Corpuscular HGB Conc 33.3 g/dl (31.0-35.0); Mean Corpuscular Hemoglobin 27.5 pg (27.0-33.0); Mean Corpuscular Volume 82.6 fL (80.0-98.0); Red Blood Count 2.87 X10*6/uL (4.20-5.50); Red Cell Distribution Width 17.9 % (11.0-16.0); White Blood Count 3.2 X10*3/uL (4.8-10.8)
[2023-09-20 08:15] LABS: NRBC Pct Auto 2.2 /100WBC (0.0-0.2); Platelet Count 69 X10*3/uL (160-400)
--- NOTE | 2023-09-20 08:17 | PC.NURSE ---
Nursing Note09/18-09/19 [id number] Nursing care assumed. During assessment patient reporting 10 out of 10 lower back pain. Patient grimacing and crying noting her present medication pain regimen is not working. Patient is presently experiencing sharp, spasm-like lower back pain and patient reports she is unable to be comfortable with repositioning, warm packs, and/or extra pillows. Patient also has a history of experiencing sharp jaw pain described by the patient as having extreme toothache , bilateral shoulder pain which patient describes as stabbing and/or spasms. Patient reports frustration as she feels Morphine helps a little but does not last . Lastly patient reports she is unable to eat as the pain is too severe and feels it is unmanageable Dr. Baylee Melendez contacted and notified of pain assessment and VS. Dr. Walton adjusted medications ordering Dilaudid 1 mg IV Q3H PRN and Oxy ER 10mg PO BID. Bowel regimen also added to minimize constipation. Patient received new pain regimen as documented in MAY and reported she was able to finally sleep Pt reported one episode of Nausea, Zofran 4mg IV provided relief as ordered. Patient reported after receiving Dilaudid 1mg IV pain level decreased from a 10 to less than 5 numeric scale. 0600 PT unable to void despite getting OOB to commode. Dr. Walton notified as PVR [id number]. Straight cath order x1 entered by provider and straight cath removed 500cc of cristopher color urine. 0630 Pt presently sleeping in bed. Eyes closed RR even and nonlabored. RR 18.
[2023-09-20 08:38] LABS: Alanine Aminotransferase 90 U/L (0-31); Albumin Level 2.8 g/dL (3.5-5.0); Alkaline Phosphatase 715 U/L (39-117); Anion Gap 17 (12-20); Aspartate Amino Transferase 72 U/L (5-31); Bilirubin Direct 2.8 mg/dL (0.0-0.5); Bilirubin Total 3.9 mg/dL (0.0-1.0); Blood Urea Nitrogen 25 mg/dL (9-16); Calcium 9.4 mg/dL (8.4-10.2); Carbon Dioxide 24 mmol/L (22-29); Chloride 96 mmol/L (96-108); Creatinine Clr Calc Pharmacy 63.5; Estimated Glomerular Filt Rate > 60; Glucose Random 140 mg/dL (60-115); Potassium 4.6 mmol/L (3.3-5.1); Sodium 132 mmol/L (135-145); Total Protein 5.8 g/dL (6.5-8.0)
[2023-09-20] MEDS: Multivitamin TABLET 1 TAB PO (09:02)
[2023-09-20] MEDS: predniSONE 20 MG TABLET 40 MG PO (09:02)
[2023-09-20] MEDS: oxyCODONE HCl ER 10 MG TAB.ER.12H PO ×2 (09:02→20:18)
[2023-09-20] MEDS: Cholecalciferol (Vitamin D3) 25 MCG TABLET PO (09:02)
[2023-09-20] MEDS: Metoprolol Succinate ER 50 MG TAB.ER.24H PO (09:02)
[2023-09-20] MEDS: 0.9 % Sodium Chloride Flush 3 ML SYRINGE IVFLUSH ×3 (09:03→20:27)
[2023-09-20] MEDS: Lidocaine 4 % Patch ADH..PATCH 1 PATCH TRANSDERMA (09:04)
[2023-09-20] MEDS: polyethylene glycoL 3350 17 GM POWD.PACK PO (09:04)
[2023-09-20 11:43] LABS: Glucose, Whole Blood 158 mg/dL (60-115)
[2023-09-20] MEDS: oxyCODONE HCl Immed Release 5 MG TABLET 10 MG PO ×2 (13:12→17:37)
--- NOTE | 2023-09-20 13:28 | P.PNHO-ONC_ITS ---
Medical Summary - Medical Summary Date of Service: 09/20/23 Chief complaint: osseous metastatic disease Primary Care Provider: Li Whitehead MD Medical Summary: DIAGNcOSIS: Multiple skull metastases. Pancytopenia. History of breast cancer. She is lethargic but rousable. Her bone scar shows multiple diffuse areas of vicky disease. Several areas on the iliac bone seem amenable to biopsy by IR, Interval History Interval history: Jaclyn Looney is a 73 year old lady admitted with right facial droop. She complains she developed a severe headache, rarely slept in this a.m. She then developed numbness and tingling around her nose that progressed to her cheek and down to her chin. She was noted to have a right facial droop. She was transferred to [facility] for evaluation MRI of the brain revealed: Diffuse enhancement involving the osseous structures, including the calvarium, skull base, maxillofacial bones, and imaged cervical spinal column again concerning for widespread osseous metastatic disease. Thin reactive pachymeningeal enhancement along the bilateral cerebral convexities. 1.5 x 1.3 cm nodular enhancement within the anterior aspect of the left middle cranial fossa appears to be both intra and extra-axial with involvement of the left temporal pole as evidenced by lack of clearly delineated CSF plane on prior MRI. This is contiguous with osseous metastatic disease eroding the inferior aspect of the left sphenoid wing and a portion of the the posterolateral wall of the left orbit, better illustrated on prior CT. There is minimal extraosseous disease noted within the posterolateral left extraconal orbit abutting the posterior aspect of the left lateral rectus muscle (image 11,series 3) and possible extraosseous extension into the left temporalis fossa involving the deep fibers of the left temporalis muscle. There may also be minimal infiltration along the roof of the left pterygomaxillary fissure. Pulsation artifact versus metastases within the left greater than right occipital lobes (images 11-13, series 3) and apparent enhancement versus artifact within the posterior fossa would be better evaluated on 3-D MPRAGE/GUSMAN postcontrast sequences. Please refer to separate brain MRI for discussion of additional findings. Multiple anatomic findings that raise the concern for widespread osseous metastatic disease. There is parenchymal edema localized within the left anterior temporal lobe that may represent intracranial invasion of a metastasis involving the greater sphenoid wing. CTA of head and neck revealed: 5. Multilevel cervical spondylosis and significant spinal canal stenosis as discussed above. Cannot exclude cord impingement at these levels. Consider MRI of the cervical spine for further assessment if clinically warranted. She was recently admitted to the hospital with a 2 weeks stay, between 09/02 and 09/16, was just discharged yesterday. She was noted to have elevated LFTs. Pancytopenia. Liver biopsy revealed: Acute hepatitis with cholestasis. She was sent home on a steroid trial. Discharge summary: Leukocytosis of 11.0. Normocytic anemia with h/h 10.3/29.9%. Renal fx normal, lytes normal except for Na 134, Ca 10.7. Glucose 133. Initial trop 17.3, repeat 24.8. EKG shows sinus tach, no acute ischemic changes. Head CT negative for acute intracranial abnormality. CTA chest negative for PE, shows pleural parenchymal irregularity along the anterior/anterolateral aspect of the ELISA with punctate calcifications with bilateral pulmonary nodules. Patient was admitted to telemetry where monitor failed to demonstrate a pathological rhythms. Seen by Cardiology and a cardiac event was ruled out. Patient was seen in consultation by Gastroenterology and Hematology for abnormal liver function tests and pancytopenia. Autoimmune panel was drawn and was unremarkable. Ultimately patient underwent a liver biopsy which demonstrated medication induced hepatitis. She was started on steroids and over the next several days liver function tests improved as well as pancytopenia. Case was discussed with GI who recommended prednisone taper; 40 mg daily x7 days followed by 35 mg daily x7 days followed by 30 mg daily x7 days followed by 25 mg daily x7 days followed by 20 mg daily x7 days followed by 15 mg daily x7 days followed by 10 mg daily x7 days followed by 5 mg daily x7 days. Patient needs CBC and chemistry profile every 3 days until both pancytopenia and liver function tests have normalized. PAST MEDICAL HISTORY: Patient was treated for left breast cancer 24 years ago. She underwent lumpectomy followed by radiation therapy and 5 years of tamoxifen. She did not receive chemotherapy. She underwent hysterectomy around the same time. FAMILY HISTORY: This no family history of breast cancer or any other cancers that she can recall. No family history of diabetes either. 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 She is . Has 3 children. She used to smoke a pack a day quit few weeks ago. Denies alcohol. Review of Systems - Constitutional Reports anorexia - ENT Reports system reviewed and no additional complaints, except as documented - Cardiovascular Reports fast heart rate - Respiratory Reports cough - Gastrointestinal Reports bloating - Genitourinary Reports frequent nighttime urination - Musculoskeletal Reports body aches, Reports decreased muscle mass [facility]LY [facility] Medical History: Medical History (Last Reviewed 09/17/23 @ 09:07 by Mayank Rockwell DO) Cancer of breast Chest pain Hyperlipidemia Irregular heart beat Kidney stone Type 2 diabetes mellitus with hyperglycemia, without long-term current use of insulin Functional capacity: bed bound Family History: Family History (Last Reviewed 09/17/23 @ 09:07 by Mayank Rockwell DO) Mother Tuberculosis Brother Myocardial infarction, Onset Age: 55 Skin cancer Father Skin cancer Surgical History: Surgical History (Last Reviewed 09/17/23 @ 09:07 by Mayank Rockwell DO) H/O colonoscopy History of lumpectomy of left breast History of surgery on arm Hx of thumb surgery S/P JUSTIN (total abdominal hysterectomy) Social History: Social History (Last Reviewed 09/17/23 @ 09:07 by Mayank Rockwell DO) Living Situation History: Household Members: Spouse Housing: House Do you presently have visiting nurse or other home services: No Alcohol History Details: 1. How often do you have a drink containing alcohol?: a. Never 3. How often do you have six or more drinks on one occasion?: a. Never AUDIT-C Alcohol total score: 0 Currently Displaying Signs/Symptoms of Alcohol Withdrawal: No Tobacco History: Patient Tobacco Use Status: Never used Tobacco Tobacco use type: Cigarette Smoked in Last 30 Days: No e-Cigarette/Vaping Use: Never Used Patient Interested in Nicotine Replacement: No Patient Given Instructions on How to Stop Smoking: No Second Hand Smoke Exposure: No Substance Use History: Use of substances other than those prescribed or required for medical reasons : No Currently Displaying Signs/Symptoms of Drug Intoxication Withdrawal: No Any prior treatment program specific to substance use: No Domestic Abuse History: Have you been hit, kicked, punched, or otherwise hurt by someone within the past year? If so, by whom?: No Do you feel safe in your current relationship?: Yes Is there a partner from a previous relationship who is making you feel unsafe now?: No Are you made to feel afraid or neglected: No Healthcare Practices: Holiness Healthcare Practices: Synagogue Advance Directives: Advance Directives: No Advance Directives Information Provided: No Homicidal Assessment: Do you have a plan to hurt others: No Plan Nutrition Assessment: Recently lost weight without trying: Yes How much weight loss: 2-13 pounds Eating poorly because of decreased appetite: No Nutrition screen score: 3 Nutrition Risks: No Nutritional Risk Patient : No : No Poor oral hygiene: No Occupation Assessmet: service: No Current occupational status: retired Home Medications and Allergies Current Medications: Current Medications Acetaminophen (Acetaminophen 325 Mg Tablet) 650 mg PO Q6H PRN PRN Reason: Pain, Mild (Pain Scale 1-3), fever or headache Last Admin: 09/19/23 18:09 Dose: 650 mg Calcium Carbonate (Calcium Carbonate 750 Mg Tab.Chew) 750 mg PO Q4H PRN PRN Reason: Heartburn Dexamethasone (Dexamethasone 4 Mg Tablet) 4 mg PO BIDWM [facility] Docusate Sodium (Docusate Sodium 100 Mg/10 Ml Liquid) 100 mg PO BID [facility] Last Admin: 09/20/23 06:35 Dose: 100 mg Hydromorphone HCl (Hydromorphone Hcl 1 Mg/Ml Syringe) 1 mg IVPUSH Q3H PRN; Protocol PRN Reason: Pain, Severe (Pain Scale 7-10) Last Admin: 09/20/23 06:06 Dose: 1 mg Hydroxyzine HCl (Hydroxyzine Hcl 50 Mg Tablet) 50 mg PO Q6H PRN PRN Reason: anxiety/restlessness Last Admin: 09/19/23 18:10 Dose: 50 mg Lidocaine (Lidocaine 4 % Patch Adh..Patch) 1 patch TRANSDERMA DAILY [facility]; Protocol Last Admin: 09/20/23 09:04 Dose: 1 patch Magnesium Hydroxide (Milk Of Magnesia 30 Ml Oral.Susp) 30 ml PO BID PRN PRN Reason: Constipation Melatonin (Melatonin 3 Mg Tablet) 6 mg PO BEDTIME PRN PRN Reason: Insomnia Metoprolol Succinate (Metoprolol Succinate Er 50 Mg Tab.Er.24h) 50 mg PO DAILY [facility]; Protocol Last Admin: 09/20/23 09:02 Dose: 50 mg Multivitamins/Vitamin C (Multivitamin Tablet) 1 tab PO DAILY [facility] Last Admin: 09/20/23 09:02 Dose: 1 tab Omeprazole (Omeprazole 20 Mg Capsule.Dr) 20 mg PO DAILY@0630 [facility] Last Admin: 09/20/23 06:06 Dose: 20 mg Ondansetron HCl (Ondansetron Hcl 4 Mg/2 Ml Vial) 4 mg IVPUSH Q8H PRN PRN Reason: Nausea and Vomiting Last Admin: 09/19/23 23:49 Dose: 4 mg Oxycodone HCl (Oxycodone Hcl Er 10 Mg Tab.Er.12h) 10 mg PO BID [facility] Last Admin: 09/20/23 09:02 Dose: 10 mg Oxycodone HCl (Oxycodone Hcl Immed Release 5 Mg Tablet) 10 mg PO Q4H PRN PRN Reason: Pain, Moderate(Pain Scale 4-6) Last Admin: 09/20/23 13:12 Dose: 10 mg Polyethylene Glycol (Polyethylene Glycol 3350 17 Gm Powd.Pack) 17 gm PO DAILY [facility] Last Admin: 09/20/23 09:04 Dose: 17 gm Senna (Senna [place] Extract Oral Syrup 15 Ml Syrup) 15 ml PO BEDTIME [facility] Sodium Chloride (0.9 % Sodium Chloride Flush 3 Ml Syringe) [facility] Last Admin: 09/20/23 09:03 Dose: 3 ml Vitamin D (Cholecalciferol (Vitamin D3) 25 Mcg Tablet) 25 mcg PO DAILY [facility] Last Admin: 09/20/23 09:02 Dose: 25 mcg Home Medications ?Medication ?Instructions ?Recorded ?Confirmed ?Type metoprolol succinate 50 mg 50 mg PO DAILY 08/19/23 09/17/23 History tablet,extended release 24 hr cholecalciferol (vitamin D3) 25 25 mcg PO DAILY 08/31/23 09/17/23 History mcg (1,000 unit) tablet (Vitamin D3) multivitamin 1 tab PO DAILY 08/31/23 09/17/23 History omeprazole 20 mg capsule,delayed 20 mg PO DAILY@0630 09/17/23 09/17/23 History release prednisone 20 mg tablet 40 mg PO DAILY 09/17/23 09/17/23 History Allergies Allergy/AdvReac Type Severity Reaction Status Date / Time sulfamethoxazole Allergy Intermediate HIVES Verified 09/17/23 05:52 [From Bactrim] trimethoprim [From Bactrim] Allergy Intermediate HIVES Verified 09/17/23 05:52 amoxicillin [Amoxicillin] Allergy Mild RASH Verified 09/17/23 05:52 Sulfa (Sulfonamide Allergy Unknown Hives Verified 09/17/23 05:52 Antibiotics) Exam Vital signs: Vital Signs Temp 98.7 F 09/20/23 11:46 Pulse 105 H 09/20/23 11:46 Resp 20 09/20/23 11:46 BP 167/74 H 09/20/23 11:46 Pulse Ox 98 09/20/23 11:46 O2 Del Method Room Air 09/20/23 11:46 Intake & Output 09/19/23 09/20/23 09/20/23 18:59 06:59 18:59 Intake Total 440 / 640 200 / 640 Output Total 760 / 760 Balance 440 / -120 -560 / -120 Urine Output (Average ml/kg/hr) 0.95 0.95 Intake: Intake, Oral Amount 440 / 640 200 / 640 Output: Output, Urine Amount 760 / 760 Other: Meal Refused Yes Breakfast % Eaten 0% Lunch % Eaten 0% Eating (Feeding) Ability Independent Number of Incontinent Voids 0 Number of Unmeasured Voids 3 0 Number of Bowel Movements 0 Urine Color Yellow Last Bowel Movement 09/18/23 09/18/23 Weight 66.9 kg BMI result Body Mass Index 23.8 - Constitutional Present: no acute distress, somnolent - Routine HEENT Exam Head: Present: atraumatic - Routine Neck Exam Present: full ROM - Routine Chest/Breast/Axilla Exam Axillae: Present: tenderness - Routine Respiratory Exam Present: wheezes - Routine Abdominal Exam Present: diminished bowel sounds - Routine Extremities Exam Present: tenderness - Detailed Neurological Exam: Coma Scale Eye Opening: Spontaneous (4) Data - Labs CBC & Chem 7: 09/20/23 07:39 09/20/23 07:39 Labs: Laboratory Last Values WBC 3.2 X10*3/uL (4.8-10.8) L 09/20/23 07:39 RBC 2.87 X10*6/uL (4.20-5.50) L 09/20/23 07:39 Hgb 7.9 g/dl (12.0-16.0) L 09/20/23 07:39 Hct 23.7 % (37.0-47.0) L 09/20/23 07:39 MCV 82.6 fL (80.0-98.0) 09/20/23 07:39 MCH 27.5 pg (27.0-33.0) 09/20/23 07:39 MCHC 33.3 g/dl (31.0-35.0) 09/20/23 07:39 RDW 17.9 % (11.0-16.0) H 09/20/23 07:39 Plt Count 69 X10*3/uL (160-400) L 09/20/23 07:39 MPV 10.0 fL (9.4-12.3) 09/20/23 07:39 Immature Gran % (Auto) Cancelled 09/18/23 05:12 Neut % (Auto) Cancelled 09/18/23 05:12 Lymph % (Auto) Cancelled 09/18/23 05:12 [place] % (Auto) Cancelled 09/18/23 05:12 Eos % (Auto) Cancelled 09/18/23 05:12 Baso % (Auto) Cancelled 09/18/23 05:12 Lymph # (Auto) Cancelled 09/18/23 05:12 [place] # (Auto) Cancelled 09/18/23 05:12 Eos # (Auto) Cancelled 09/18/23 05:12 Baso # (Auto) Cancelled 09/18/23 05:12 Abs Immat Gran (auto) Cancelled 09/18/23 05:12 Absolute Neuts (auto) Cancelled 09/18/23 05:12 Absolute Nucleated RBC 0.070 X10*3/uL (0.0-0.012) H 09/20/23 07:39 Nucleated RBC % (auto) 2.2 /100WBC (0.0-0.2) H 09/20/23 07:39 Neutrophils % (Manual) 78 % (45-73) H 09/18/23 05:12 Band Neutrophils % 4 % (3-5) 09/18/23 05:12 Lymphocytes % (Manual) 11 % (20-40) L 09/18/23 05:12 Atypical Lymphs % (Man) 1 % (0-6) 09/17/23 06:10 Monocytes % (Manual) 2 % (2-11) 09/17/23 06:10 Metamyelocytes % 4 % 09/18/23 05:12 Myelocytes % 3 % 09/18/23 05:12 Abs Neuts (Manual) 3.1 X10*3/uL (2.0-8.3) 09/18/23 05:12 Lymphocytes # (Manual) 0.4 X10*3/uL (1.2-4.9) L 09/18/23 05:12 Monocytes # (Manual) 0.1 X10*3/uL (0.1-1.2) 09/17/23 06:10 Metamyelocytes # 0.2 X10*3/uL 09/18/23 05:12 Myelocytes # 0.1 X10*/uL 09/18/23 05:12 Nucleated RBCs 6 /100WBC (0-0) H 09/18/23 05:12 Platelet Estimate DECREASED (NORMAL) 09/18/23 05:12 Plt Morphology Comment NORMAL 09/18/23 05:12 RBC Morphology NOTED 09/18/23 05:12 Polychromasia 1+ (0-2) /[facility] 09/18/23 05:12 Hypochromasia 1+ (5-14) /F 09/18/23 05:12 Basophilic Stippling 1+ (0-2) /[facility] 09/17/23 06:10 Microcytosis 1+ (5-14) /[facility] 09/18/23 05:12 Spherocytes 1+ (0-2) /F 09/17/23 06:10 Tear Drop Cells 1+ (0-2) /[facility] 09/17/23 06:10 Ovalocytes 1+ (5-14) /[facility] 09/17/23 06:10 Stomatocytes 1+ (5-14) /[facility] 09/17/23 06:10 Acanthocytes (Spur) 1+ (0-2) /[facility] 09/17/23 06:10 Schistocytes 1+ (0-2) /[facility] 09/17/23 06:10 Whole Blood PT 13.9 sec (11.1-13.5) H 09/16/23 05:46 Whole Blood INR 1.2 (0.9-1.1) H 09/16/23 05:46 Sodium 132 mmol/L (135-145) L 09/20/23 07:39 Potassium 4.6 mmol/L (3.3-5.1) D 09/20/23 07:39 Chloride 96 mmol/L (96-108) 09/20/23 07:39 Carbon Dioxide 24 mmol/L (22-29) 09/20/23 07:39 Anion Gap 17 (12-20) 09/20/23 07:39 BUN 25 mg/dL (9-16) H 09/20/23 07:39 Creatinine 0.76 mg/dL (0.5-1.4) 09/20/23 07:39 Estim Creat Clear Calc 63.5 09/20/23 07:39 Estimated GFR > 60 09/20/23 07:39 POC Glucose 158 mg/dL (60-115) H 09/20/23 11:14 Random Glucose 140 mg/dL (60-115) H 09/20/23 07:39 Calcium 9.4 mg/dL (8.4-10.2) D 09/20/23 07:39 Total Bilirubin 3.9 mg/dL (0.0-1.0) H 09/20/23 07:39 Direct Bilirubin 2.8 mg/dL (0.0-0.5) H 09/20/23 07:39 AST 72 U/L (5-31) H 09/20/23 07:39 ALT 90 U/L (0-31) H 09/20/23 07:39 Alkaline Phosphatase 715 U/L (39-117) H 09/20/23 07:39 Troponin I High Sens 4.2 ng/L (<3.5-17.0) D 09/17/23 06:10 B-Natriuretic Peptide 94 pg/mL (<100) 09/17/23 06:10 Total Protein 5.8 g/dL (6.5-8.0) L 09/20/23 07:39 Albumin 2.8 g/dL (3.5-5.0) L 09/20/23 07:39 Lipase 33 U/L (8-78) 09/17/23 06:10 Urine Color Dark Yellow 09/18/23 16:52 Urine Appearance Clear 09/18/23 16:52 Urine pH 7.0 (5.0-9.0) 09/18/23 16:52 Ur Specific [place] 1.015 (1.005-1.025) 09/18/23 16:52 Urine Protein 30 (1+) mg/dL (Neg-Trace) H 09/18/23 16:52 Urine Glucose (UA) 500 mg/dL (Negative) H 09/18/23 16:52 Urine Ketones Negative mg/dL (Negative) 09/18/23 16:52 Urine Blood Moderate (2+) (Negative) H 09/18/23 16:52 Urine Nitrite Negative (Negative) 09/18/23 16:52 Ur Leukocyte Esterase Negative (Negative) 09/18/23 16:52 Urine RBC >20 /HPF (0-2) H 09/18/23 16:52 Urine WBC 0-5 /HPF (0-5) 09/18/23 16:52 Ur Squamous Epith Cells 0-2 /HPF (0-2) 09/18/23 16:52 Urine Bacteria None Seen (None Seen) 09/18/23 16:52 Hyaline Casts 0-2 /LPF (0-2) 09/18/23 16:52 COVID-19 (LAST) Negative (Negative) 09/17/23 06:10 COVID-19 Clin Com See Note 09/17/23 06:10 - Imaging Radiologist's impression: ITS Impressions Head CT 09/17/23 05:51 IMPRESSION: No acute intracranial pathology. Chest X-Ray 09/17/23 06:38 IMPRESSION: No acute finding. Head/Neck CTA 09/17/23 07:36 IMPRESSION: 1. Partially calcified plaque at both carotid bulbs, with less than 50% diameter reduction stenosis of the proximal ICAs by NASCET criteria. 2. Short-segment moderate, nonflow-limiting stenosis of the supraclinoid left internal carotid artery. No intracranial arterial occlusion or other significant stenosis is identified. 3. Minimal chronic ischemic microangiopathy in the subcortical white matter of both frontal lobes. No acute territorial infarct. No pathologic intracranial enhancement. 4. Nonspecific subpleural opacity in the anterior left upper lobe, which could be inflammatory or post inflammatory in nature or less likely neoplastic. Recommend follow-up CT of the chest with contrast. 5. Multilevel cervical spondylosis and significant spinal canal stenosis as discussed above. Cannot exclude cord impingement at these levels. Consider MRI of the cervical spine for further assessment if clinically warranted. The [facility] staff will call to confirm receipt of this report with acknowledgement of the findings and any recommendations. Brain MRI 09/17/23 15:45 IMPRESSION: There are multiple anatomic findings that raise the concern for widespread osseous metastatic disease. There is parenchymal edema located within the left anterior temporal lobe that may represent intracranial invasion of a metastasis involving the left greater sphenoid wing. A dedicated postcontrast MRI of the brain can be obtained for better anatomic characterization of this finding. Otherwise no intracranial mass effect or hydrocephalus. No evidence of acute territorial infarct or hemorrhage. This critical result was discussed with Mayank Rockwell at 4:16 PM on 09/17/2023 and it was ascertained that the content and urgency of the report was understood at the time of direct communication. Brain MRI 09/17/23 18:49 FINDINGS/IMPRESSION: Diffuse enhancement involving the osseous structures, including the calvarium, skull base, maxillofacial bones, and imaged cervical spinal column again concerning for widespread osseous metastatic disease. Thin reactive pachymeningeal enhancement along the bilateral cerebral convexities. 1.5 x 1.3 cm nodular enhancement within the anterior aspect of the left middle cranial fossa appears to be both intra and extra-axial with involvement of the left temporal pole as evidenced by lack of clearly delineated CSF plane on prior MRI. This is contiguous with osseous metastatic disease eroding the inferior aspect of the left sphenoid wing and a portion of the the posterolateral wall of the left orbit, better illustrated on prior CT. There is minimal extraosseous disease noted within the posterolateral left extraconal orbit abutting the posterior aspect of the left lateral rectus muscle (image 11, series 3) and possible extraosseous extension into the left temporalis fossa involving the deep fibers of the left temporalis muscle. There may also be minimal infiltration along the roof of the left pterygomaxillary fissure. Pulsation artifact versus metastases within the left greater than right occipital lobes (images 11-13, series 3) and apparent enhancement versus artifact within the posterior fossa would be better evaluated on 3-D MPRAGE/GUSMAN postcontrast sequences. Please refer to separate brain MRI for discussion of additional findings. Brain MRI 09/19/23 10:50 IMPRESSION: There is diffuse dural thickening and enhancement most likely representing reactive changes in the setting of widespread osseous metastatic disease. There is also a focus of parenchymal enhancement involving the left anterior temporal lobe measuring approximately 1.7 cm in maximal transaxial dimension most likely representing direct intracranial extension of tumor. Otherwise no abnormal parenchymal enhancement visualized elsewhere within the intracranial compartment. No intracranial mass effect or hydrocephalus. Bone Scan Nuclear Medicine 09/19/23 12:20 IMPRESSION: Abnormal study showing features highly suspicious for near diffuse osseous metastasis. Assessment and Plan Patient Active problem list reviewed?: Yes (1) Cancer, metastatic to bone Status: Acute Assessment and plan: 73-year-old lady with a remote history of breast cancer, the right breast, status post lumpectomy and radiation. She now presents with a right facial droop. MRI of the brain revealed: Diffuse enhancement involving the osseous structures, including the calvarium, skull base, maxillofacial bones, and imaged cervical spinal column again concerning for widespread osseous metastatic disease. Thin reactive pachymeningeal enhancement along the bilateral cerebral convexities. 1.5 x 1.3 cm nodular enhancement within the anterior aspect of the left middle cranial fossa appears to be both intra and extra-axial with involvement of the left temporal pole as evidenced by lack of clearly delineated CSF plane on prior MRI. This is contiguous with osseous metastatic disease eroding the inferior aspect of the left sphenoid wing and a portion of the the posterolateral wall of the left orbit, better illustrated on prior CT. There is minimal extraosseous disease noted within the posterolateral left extraconal orbit abutting the posterior aspect of the left lateral rectus muscle (image 11,series 3) and possible extraosseous extension into the left temporalis fossa involving the deep fibers of the left temporalis muscle. There may also be minimal infiltration along the roof of the left pterygomaxillary fissure. Pulsation artifact versus metastases within the left greater than right occipital lobes (images 11-13, series 3) and apparent enhancement versus artifact within the posterior fossa would be better evaluated on 3-D MPRAGE/GUSMAN postcontrast sequences. Please refer to separate brain MRI for discussion of additional findings. Multiple anatomic findings that raise the concern for widespread osseous metastatic disease. There is parenchymal edema localized within the left anterior temporal lobe that may represent intracranial invasion of a metastasis involving the greater sphenoid wing. Pancytopenia likely related to bone marrow metastases. LFT abnormalities are likely also related to micro metastatic disease in the liver. PLAN: To proceed with a bone scan to look for evidence of systemic bony metastases.(will be done in the morning.) This will help provide a safer site for biopsy. Other option is to proceed with a bone marrow aspirate and biopsy. Will repeat brain MRI with 3-D MPRAGE/GUSMAN postcontrast sequences. For now, focus on pain management and symptoms alleviation. Thank you for the consult, - Time Spent With Patient Time Spent with Patient (in minutes): 20 Comment: I wouold consider biopsy of bone of the pelvis or spine by IR. Empiric hormonal therapy is a consideration.
--- NOTE | 2023-09-20 14:43 | HO.PM.IMPN ---
Subjective Subjective Date of Service: 09/20/23 Interval History: Complaining of diffuse back discomfort, shoulder pain, no facial numbness, intermittent headache, weakness, no bowel movement in last 4 days, events from last night noted patient was unable to void therefore required straight catheterization, patient unable to void again this morning, has an urge to void , no history of prior urinary retention, started on OxyContin 10 mg b.i.d., IV Dilaudid 1 mg every 3 hours last evening, patient is not requesting for as needed meds, no fevers, no chills no other new neurological deficits. Review of Systems All other system reviewed and are negative Physical Exam Vital Signs: Vital Signs: Last Vital Signs Temp 98.7 F 09/20/23 11:46 Pulse 105 H 09/20/23 11:46 Resp 20 09/20/23 11:46 BP 167/74 H 09/20/23 11:46 Pulse Ox 98 09/20/23 11:46 O2 Del Method Room Air 09/20/23 11:46 BMI result Body Mass Index 23.8 Const: Other: General appears weak, uncomfortable due to shoulder and generalized back pain, communicating in feeble voice. Sclera icteric Neck supple no JVD. CVS regular rate rhythm, tachycardic Respiratory lungs clear to auscultation, no respiratory distress, no wheeze, no rhonchi. Gastrointestinal abdomen soft, non tender, bowel sounds audible, no guarding , no rigidity. Extremities no edema. Neuro non focal , face symmetrical Skin jaundiced psyche anxious Objective Data Active Medications Acetaminophen (Acetaminophen 325 Mg Tablet) 650 mg PO Q6H PRN PRN Reason: Pain, Mild (Pain Scale 1-3), fever or headache Last Admin: 09/19/23 18:09 Dose: 650 mg Documented By: ELLI Calcium Carbonate (Calcium Carbonate 750 Mg Tab.Chew) 750 mg PO Q4H PRN PRN Reason: Heartburn Dexamethasone (Dexamethasone 4 Mg Tablet) 4 mg PO BIDWM JORGE Docusate Sodium (Docusate Sodium 100 Mg/10 Ml Liquid) 100 mg PO BID JORGE Last Admin: 09/20/23 06:35 Dose: 100 mg Documented By: DARNELL Hydromorphone HCl (Hydromorphone Hcl 1 Mg/Ml Syringe) 1 mg IVPUSH Q3H PRN; Protocol PRN Reason: Pain, Severe (Pain Scale 7-10) Last Admin: 09/20/23 06:06 Dose: 1 mg Documented By: DARNELL Hydroxyzine HCl (Hydroxyzine Hcl 50 Mg Tablet) 50 mg PO Q6H PRN PRN Reason: anxiety/restlessness Last Admin: 09/19/23 18:10 Dose: 50 mg Documented By: ELLI Lidocaine (Lidocaine 4 % Patch Adh..Patch) 1 patch TRANSDERMA DAILY [facility]; Protocol Last Admin: 09/20/23 09:04 Dose: 1 patch Documented By: IRMA Magnesium Hydroxide (Milk Of Magnesia 30 Ml Oral.Susp) 30 ml PO BID PRN PRN Reason: Constipation Melatonin (Melatonin 3 Mg Tablet) 6 mg PO BEDTIME PRN PRN Reason: Insomnia Metoprolol Succinate (Metoprolol Succinate Er 50 Mg Tab.Er.24h) 50 mg PO DAILY [facility]; Protocol Last Admin: 09/20/23 09:02 Dose: 50 mg Documented By: IRMA Multivitamins/Vitamin C (Multivitamin Tablet) 1 tab PO DAILY [facility] Last Admin: 09/20/23 09:02 Dose: 1 tab Documented By: IRMA Omeprazole (Omeprazole 20 Mg Capsule.Dr) 20 mg PO DAILY@0630 [facility] Last Admin: 09/20/23 06:06 Dose: 20 mg Documented By: DARNELL Ondansetron HCl (Ondansetron Hcl 4 Mg/2 Ml Vial) 4 mg IVPUSH Q8H PRN PRN Reason: Nausea and Vomiting Last Admin: 09/19/23 23:49 Dose: 4 mg Documented By: DARNELL Oxycodone HCl (Oxycodone Hcl Er 10 Mg Tab.Er.12h) 10 mg PO BID [facility] Last Admin: 09/20/23 09:02 Dose: 10 mg Documented By: IRMA Oxycodone HCl (Oxycodone Hcl Immed Release 5 Mg Tablet) 10 mg PO Q4H PRN PRN Reason: Pain, Moderate(Pain Scale 4-6) Last Admin: 09/20/23 13:12 Dose: 10 mg Documented By: IRMA Polyethylene Glycol (Polyethylene Glycol 3350 17 Gm Powd.Pack) 17 gm PO DAILY [facility] Last Admin: 06/29/24 09:04 Dose: 17 gm Documented By: IRMA Senna (Senna [place] Extract Oral Syrup 15 Ml Syrup) 15 ml PO BEDTIME [facility] Sodium Chloride (0.9 % Sodium Chloride Flush 3 Ml Syringe) 3 ml IVFLUSH QSHIFT [facility] Last Admin: 09/20/23 09:03 Dose: 3 ml Documented By: IRMA Vitamin D (Cholecalciferol (Vitamin D3) 25 Mcg Tablet) 25 mcg PO DAILY [facility] Last Admin: 09/20/23 09:02 Dose: 25 mcg Documented By: IRMA Labs 09/20/23 07:39 09/20/23 07:39 Labs: Laboratory Results - last 24 hr 09/20/23 09/20/23 09/20/23 07:12 07:39 11:14 MCV 82.6 MCH 27.5 MCHC 33.3 RDW 17.9 H Plt Count 69 L MPV 10.0 Absolute Nucleated RBC 0.070 H Nucleated RBC % (auto) 2.2 H Anion Gap 17 Estim Creat Clear Calc 63.5 Estimated GFR > 60 POC Glucose 94 158 H Random Glucose 140 H Calcium 9.4 D Total Bilirubin 3.9 H Direct Bilirubin 2.8 H AST 72 H ALT 90 H Alkaline Phosphatase 715 H Total Protein 5.8 L Albumin 2.8 L Assessment and Plan (1) Cancer, metastatic to bone: Status: Acute (2) Facial paresthesia: Status: Acute (3) Drug induced liver disease: Status: Acute (4) Thrombocytopenia: Status: Acute (5) Abnormal LFTs: Status: Acute Plan 73 female recently admitted for 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 Patient states she awoke from sleep with what she describes as a migraine and developed numbness and tingling around her nose that progressed to her right cheek and right jaw. Staff at rehab were concerned that there might be a facial asymmetry as well. Transferred to [facility]. Initial workup with head CT, CTA head and neck failed to demonstrate acute pathology. She will be admitted to complete workup for same 1. Facial paresthesias/headache due to diffuse osseous metastasis involving skull. Facial numbness resolved persistent headache MRI brain showed diffuse bony enhancement involving the osseous structure including calvarium, skull bone, maxillofacial bones and imaged cervical spinal column. Case discussed with [facility] Th[facility] GIANG regarding biopsy, he reviewed films and recommend outpatient follow-up with repeat CT in 1 week. Bone scan, showed features highly suspicious for near diffuse osseous metastasis involving skull vault, thoracic cage, upper extremities, both upper extremities, entire cervical, thoracic and lumbosacral spine and pelvis bone marrow examination ordered and is pending repeat MRI with 3-D MPRAGE/GUSMAN postcontrast sequences showed diffuse osseous metastasis as well as left anterior temporal lobe enhancement. History of breast cancer, question metastatic disease related to it case discussed with Dr. Vasquez placed on IV dexamethasone 4 mg b.i.d., CA 27.29 ordered Will discuss bone biopsy with IR. 2. 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 Alk-phos remains elevated but stable, -outpatient GI follow-up, continue steroids changed to IV for metastatic bony disease. 3. Pancytopenia [place] to be related to medication reaction, but seems likely due to metastatic disease, noted to have drop in hematocrit ,no acute bleeding noted bone marrow biopsy pend, follow CBC , transfuse packed RBC as needed. 4. Type 2 diabetes -point of care acceptable on steroids, hemoglobin A1c 6.9, previously was on metformin currently on hold due to question cause of drug-induced liver disease. -follow clinically 5. Hyperlipidemia continue to hold statins. 6. Bilateral shoulder and back pain due to diffuse osseous metastasis placed on IV Dilaudid/oxycodone and OxyContin, continue bowel regimen and follow. 7. Urinary retention with no prior history likely due to narcotics, decreased mobility will place on Parker catheter Spoke with patient's and son and informed them about abnormal test results with diffuse metastatic bony lesions, possibly arising from breast cancer but will need further testing as per Oncology. Full code Lovenox Patient will require continued inpatient hospitalization due to further testing with persistent headaches, paresthesias , generalized diffuse pain requiring IV analgesics abnormal LFTs and CBC and continued expert consultation . Quality Quality Stroke Does the patient have a stroke diagnosis?: No VTE Prior VTE?: No VTE Risk Level:: Medical - moderate - high VTE Device Contraindication: Treatment Not Indicated VTE Drug Contraindication: N/A - Med Ordered
[2023-09-20 15:56] LABS: Glucose, Whole Blood 194 mg/dL (60-115)
[2023-09-20] MEDS: dexAMETHasone 4 MG TABLET PO (16:37)
[2023-09-21] VITALS: BP 172/68; PULSE 103; RESP 18; TEMP 37.1; O2SAT 93
[2023-09-21 03:53] VITALS: BP 178/84; PULSE 113; RESP 17; TEMP 36.6; O2SAT 94
[2023-09-21] MEDS: Omeprazole 20 MG CAPSULE.DR PO (06:05)
[2023-09-21 07:31] LABS: Glucose, Whole Blood 159 mg/dL (60-115)
[2023-09-21 07:32] VITALS: BP 157/72; PULSE 101; RESP 18; TEMP 36.8; O2SAT 97
[2023-09-21] MEDS: Cholecalciferol (Vitamin D3) 25 MCG TABLET PO (08:25)
[2023-09-21] MEDS: oxyCODONE HCl ER 10 MG TAB.ER.12H PO ×2 (08:25→21:26)
[2023-09-21] MEDS: Multivitamin TABLET 1 TAB PO (08:25)
[2023-09-21] MEDS: Metoprolol Succinate ER 50 MG TAB.ER.24H PO (08:25)
[2023-09-21] MEDS: Docusate Sodium 100 MG/10 ML LIQUID PO (08:25)
[2023-09-21] MEDS: dexAMETHasone sod phosphate 4 MG/ML VIAL IVPUSH ×2 (08:25→21:26)
[2023-09-21] MEDS: 0.9 % Sodium Chloride Flush 3 ML SYRINGE IVFLUSH ×3 (08:26→23:49)
[2023-09-21] MEDS: Lidocaine 4 % Patch ADH..PATCH 1 PATCH TRANSDERMA (08:26)
[2023-09-21] MEDS: polyethylene glycoL 3350 17 GM POWD.PACK PO (08:26)
[2023-09-21 11:34] LABS: Glucose, Whole Blood 183 mg/dL (60-115)
[2023-09-21 11:40] VITALS: BP 151/67; PULSE 95; RESP 18; TEMP 37.2; O2SAT 94
--- NOTE | 2023-09-21 11:59 | PM.HEMONCPN ---
Medical Summary - Medical Summary Date of Service: 09/21/23 Primary Care Provider: Li Whitehead MD Medical Summary: DIAGNcOSIS: Multiple skull metastases. Pancytopenia. She has a history of breast cancer. She is lethargic but rousable. Her bone scan shows multiple diffuse areas of vicky disease. Several areas on the iliac bone seem amenable to biopsy by IR. Interval History Interval history: Jaclyn Looney is a 73 year old lady admitted with right facial droop. She complains she developed a severe headache, rarely slept in this a.m. She then developed numbness and tingling around her nose that progressed to her cheek and down to her chin. She was noted to have a right facial droop. She was transferred to [facility] for evaluation MRI of the brain revealed: Diffuse enhancement involving the osseous structures, including the calvarium, skull base, maxillofacial bones, and imaged cervical spinal column again concerning for widespread osseous metastatic disease. Thin reactive pachymeningeal enhancement along the bilateral cerebral convexities. 1.5 x 1.3 cm nodular enhancement within the anterior aspect of the left middle cranial fossa appears to be both intra and extra-axial with involvement of the left temporal pole as evidenced by lack of clearly delineated CSF plane on prior MRI. This is contiguous with osseous metastatic disease eroding the inferior aspect of the left sphenoid wing and a portion of the the posterolateral wall of the left orbit, better illustrated on prior CT. There is minimal extraosseous disease noted within the posterolateral left extraconal orbit abutting the posterior aspect of the left lateral rectus muscle (image 11,series 3) and possible extraosseous extension into the left temporalis fossa involving the deep fibers of the left temporalis muscle. There may also be minimal infiltration along the roof of the left pterygomaxillary fissure. Pulsation artifact versus metastases within the left greater than right occipital lobes (images 11-13, series 3) and apparent enhancement versus artifact within the posterior fossa would be better evaluated on 3-D MPRAGE/GUSMAN postcontrast sequences. Please refer to separate brain MRI for discussion of additional findings. Multiple anatomic findings that raise the concern for widespread osseous metastatic disease. There is parenchymal edema localized within the left anterior temporal lobe that may represent intracranial invasion of a metastasis involving the greater sphenoid wing. CTA of head and neck revealed: 5. Multilevel cervical spondylosis and significant spinal canal stenosis as discussed above. Cannot exclude cord impingement at these levels. Consider MRI of the cervical spine for further assessment if clinically warranted. She was recently admitted to the hospital with a 2 weeks stay, between 09/02 and 09/16, was just discharged yesterday. She was noted to have elevated LFTs. Pancytopenia. Liver biopsy revealed: Acute hepatitis with cholestasis. She was sent home on a steroid trial. Discharge summary: Leukocytosis of 11.0. Normocytic anemia with h/h 10.3/29.9%. Renal fx normal, lytes normal except for Na 134, Ca 10.7. Glucose 133. Initial trop 17.3, repeat 24.8. EKG shows sinus tach, no acute ischemic changes. Head CT negative for acute intracranial abnormality. CTA chest negative for PE, shows pleural parenchymal irregularity along the anterior/anterolateral aspect of the ELISA with punctate calcifications with bilateral pulmonary nodules. Patient was admitted to telemetry where monitor failed to demonstrate a pathological rhythms. Seen by Cardiology and a cardiac event was ruled out. Patient was seen in consultation by Gastroenterology and Hematology for abnormal liver function tests and pancytopenia. Autoimmune panel was drawn and was unremarkable. Ultimately patient underwent a liver biopsy which demonstrated medication induced hepatitis. She was started on steroids and over the next several days liver function tests improved as well as pancytopenia. Case was discussed with GI who recommended prednisone taper; 40 mg daily x7 days followed by 35 mg daily x7 days followed by 30 mg daily x7 days followed by 25 mg daily x7 days followed by 20 mg daily x7 days followed by 15 mg daily x7 days followed by 10 mg daily x7 days followed by 5 mg daily x7 days. Patient needs CBC and chemistry profile every 3 days until both pancytopenia and liver function tests have normalized. PAST MEDICAL HISTORY: Patient was treated for left breast cancer 24 years ago. She underwent lumpectomy followed by radiation therapy and 5 years of tamoxifen. She did not receive chemotherapy. She underwent hysterectomy around the same time. FAMILY HISTORY: This no family history of breast cancer or any other cancers that she can recall. No family history of diabetes either. 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 She is . Has 3 children. She used to smoke a pack a day quit few weeks ago. Denies alcohol. Review of Systems - Constitutional Reports anorexia - ENT Reports system reviewed and no additional complaints, except as documented - Cardiovascular Reports fast heart rate - Respiratory Reports dyspnea on exertion - Gastrointestinal Reports feeling full early - Musculoskeletal Reports decreased muscle mass [facility] Medical History: Medical History (Last Reviewed 09/17/23 @ 09:07 by Mayank Rockwell DO) Cancer of breast Chest pain Hyperlipidemia Irregular heart beat Kidney stone Type 2 diabetes mellitus with hyperglycemia, without long-term current use of insulin Functional capacity: bed bound Family History: Family History (Last Reviewed 09/17/23 @ 09:07 by Mayank Rockwell DO) Mother Tuberculosis Brother Myocardial infarction, Onset Age: 55 Skin cancer Father Skin cancer Surgical History: Surgical History (Last Reviewed 09/17/23 @ 09:07 by Mayank Rockwell DO) H/O colonoscopy History of lumpectomy of left breast History of surgery on arm Hx of thumb surgery S/P JUSTIN (total abdominal hysterectomy) Social History: Social History (Last Reviewed 09/17/23 @ 09:07 by Mayank Rockwell DO) Living Situation History: Household Members: Spouse Housing: House Do you presently have visiting nurse or other home services: No Alcohol History Details: 1. How often do you have a drink containing alcohol?: a. Never 3. How often do you have six or more drinks on one occasion?: a. Never AUDIT-C Alcohol total score: 0 Currently Displaying Signs/Symptoms of Alcohol Withdrawal: No Tobacco History: Patient Tobacco Use Status: Never used Tobacco Tobacco use type: Cigarette Smoked in Last 30 Days: No e-Cigarette/Vaping Use: Never Used Patient Interested in Nicotine Replacement: No Patient Given Instructions on How to Stop Smoking: No Second Hand Smoke Exposure: No Substance Use History: Use of substances other than those prescribed or required for medical reasons: No Currently Displaying Signs/Symptoms of Drug Intoxication Withdrawal: No Any prior treatment program specific to substance use: No Domestic Abuse History: Have you been hit, kicked, punched, or otherwise hurt by someone within the past year? If so, by whom?: No Do you feel safe in your current relationship?: Yes Is there a partner from a previous relationship who is making you feel unsafe now?: No Are you made to feel afraid or neglected: No Healthcare Practices: [facility] Healthcare Practices: Synagogue Advance Directives: Advance Directives: No Advance Directives Information Provided: No Homicidal Assessment: Do you have a plan to hurt others: No Plan Nutrition Assessment: Recently lost weight without trying: Yes How much weight loss: 2-13 pounds Eating poorly because of decreased appetite: No Nutrition screen score: 3 Nutrition Risks: No Nutritional Risk Patient : No : No Poor oral hygiene: No Occupation Assessmet: service: No Current occupational status: retired Home Medications and Allergies Current Medications: Current Medications Acetaminophen (Acetaminophen 325 Mg Tablet) 650 mg PO Q6H PRN PRN Reason: Pain, Mild (Pain Scale 1-3), fever or headache Last Admin: 09/19/23 18:09 Dose: 650 mg Calcium Carbonate (Calcium Carbonate 750 Mg Tab.Chew) 750 mg PO Q4H PRN PRN Reason: Heartburn Dexamethasone Sodium Phosphate (Dexamethasone Sod Phosphate 4 Mg/Ml Vial) 4 mg IVPUSH BID [facility] Last Admin: 09/21/23 08:25 Dose: 4 mg Docusate Sodium (Docusate Sodium 100 Mg/10 Ml Liquid) 100 mg PO BID [facility] Last Admin: 09/21/23 08:25 Dose: 100 mg Hydromorphone HCl (Hydromorphone Hcl 1 Mg/Ml Syringe) 1 mg IVPUSH Q3H PRN; Protocol PRN Reason: Pain, Severe (Pain Scale 7-10) Last Admin: 09/20/23 06:06 Dose: 1 mg Hydroxyzine HCl (Hydroxyzine Hcl 50 Mg Tablet) 50 mg PO Q6H PRN PRN Reason: anxiety/restlessness Last Admin: 09/19/23 18:10 Dose: 50 mg Lidocaine (Lidocaine 4 % Patch Adh..Patch) 1 patch TRANSDERMA DAILY [facility]; Protocol Last Admin: 09/21/23 08:26 Dose: 1 patch Magnesium Hydroxide (Milk Of Magnesia 30 Ml Oral.Susp) 30 ml PO BID PRN PRN Reason: Constipation Melatonin (Melatonin 3 Mg Tablet) 6 mg PO BEDTIME PRN PRN Reason: Insomnia Metoprolol Succinate (Metoprolol Succinate Er 50 Mg Tab.Er.24h) 50 mg PO DAILY [facility]; Protocol Last Admin: 09/21/23 08:25 Dose: 50 mg Multivitamins/Vitamin C (Multivitamin Tablet) 1 tab PO DAILY [facility] Last Admin: 09/21/23 08:25 Dose: 1 tab Omeprazole (Omeprazole 20 Mg Capsule.Dr) 20 mg PO DAILY@629 [facility] Last Admin: 09/21/23 06:05 Dose: 20 mg Ondansetron HCl (Ondansetron Hcl 4 Mg/2 Ml Vial) 4 mg IVPUSH Q8H PRN PRN Reason: Nausea and Vomiting Last Admin: 09/19/23 23:49 Dose: 4 mg Oxycodone HCl (Oxycodone Hcl Er 10 Mg Tab.Er.12h) 10 mg PO BID [facility] Last Admin: 09/21/23 08:25 Dose: 10 mg Oxycodone HCl (Oxycodone Hcl Immed Release 5 Mg Tablet) 10 mg PO Q4H PRN PRN Reason: Pain, Moderate(Pain Scale 4-6) Last Admin: 09/20/23 17:37 Dose: 10 mg Polyethylene Glycol (Polyethylene Glycol 3350 17 Gm Powd.Pack) 17 gm PO DAILY [facility] Last Admin: 09/21/23 08:26 Dose: 17 gm Senna (Senna [place] Extract Oral Syrup 15 Ml Syrup) 15 ml PO BEDTIME [facility] Last Admin: 09/20/23 20:18 Dose: 15 ml Sodium Chloride (0.9 % Sodium Chloride Flush 3 Ml Syringe) 3 ml IVFLUSH QSHIFT [facility] Last Admin: 09/21/23 08:26 Dose: 3 ml Vitamin D (Cholecalciferol (Vitamin D3) 25 Mcg Tablet) 25 mcg PO DAILY [facility] Last Admin: 09/21/23 08:25 Dose: 25 mcg Home Medications ?Medication ?Instructions ?Recorded ?Confirmed ?Type metoprolol succinate 50 mg 50 mg PO DAILY 08/19/23 09/17/23 History tablet,extended release 24 hr cholecalciferol (vitamin D3) 25 25 mcg PO DAILY 08/31/23 09/17/23 History mcg (1,000 unit) tablet (Vitamin D3) multivitamin 1 tab PO DAILY 08/31/23 09/17/23 History omeprazole 20 mg capsule,delayed 20 mg PO DAILY@30 09/17/23 09/17/23 History release prednisone 20 mg tablet 40 mg PO DAILY 09/17/23 09/17/23 History Allergies Allergy/AdvReac Type Severity Reaction Status Date / Time sulfamethoxazole Allergy Intermediate HIVES Verified 09/17/23 05:52 [From Bactrim] trimethoprim [From Bactrim] Allergy Intermediate HIVES Verified 09/17/23 05:52 amoxicillin [Amoxicillin] Allergy Mild RASH Verified 09/17/23 05:52 Sulfa (Sulfonamide Allergy Unknown Hives Verified 09/17/23 05:52 Antibiotics) Exam Vital signs: Vital Signs Temp 98.9 F 09/21/23 11:40 Pulse 95 09/21/23 11:40 Resp 18 09/21/23 11:40 BP 151/67 H 09/21/23 11:40 Pulse Ox 94 09/21/23 11:40 O2 Del Method Room Air 09/21/23 11:40 Intake & Output 09/20/23 09/21/23 09/21/23 18:59 06:59 18:59 Intake Total 240 / 440 200 / 440 Output Total 0 / 420 420 / 420 Balance 240 / 20 -220 / 20 Urine Output (Average ml/kg/hr) 0.00 0.52 0.52 Intake: Intake, Oral Amount 240 / 440 200 / 440 Output: Output, Urine Amount 0 / 420 420 / 420 Other: Number of Incontinent Voids 0 Number of Unmeasured Voids 0 Urine leone Urine Color Mamta Last Bowel Movement 09/18/23 09/18/23 Weight 66.9 kg BMI result Body Mass Index 23.8 - Constitutional Present: no acute distress, somnolent - Routine HEENT Exam Head: Present: atraumatic - Routine Neck Exam Present: full ROM - Routine Respiratory Exam Present: decreased breath sounds, wheezes - Routine Cardiovascular Exam Cardiovascular: Present: RRR - Routine Abdominal Exam Present: diminished bowel sounds - Routine Extremities Exam Present: tenderness - Detailed Neurological Exam: Coma Scale Eye Opening: Spontaneous (4) Data - Labs CBC & Chem 7: 09/20/23 07:39 09/20/23 07:39 - Imaging Radiologist's impression: ITS Impressions Head CT 09/17/23 05:51 IMPRESSION: No acute intracranial pathology. Chest X-Ray 09/17/23 06:38 IMPRESSION: No acute finding. Head/Neck CTA 09/17/23 07:36 IMPRESSION: 1. Partially calcified plaque at both carotid bulbs, with less than 50% diameter reduction stenosis of the proximal ICAs by NASCET criteria. 2. Short-segment moderate, nonflow-limiting stenosis of the supraclinoid left internal carotid artery. No intracranial arterial occlusion or other significant stenosis is identified. 3. Minimal chronic ischemic microangiopathy in the subcortical white matter of both frontal lobes. No acute territorial infarct. No pathologic intracranial enhancement. 4. Nonspecific subpleural opacity in the anterior left upper lobe, which could be inflammatory or post inflammatory in nature or less likely neoplastic. Recommend follow-up CT of the chest with contrast. 5. Multilevel cervical spondylosis and significant spinal canal stenosis as discussed above. Cannot exclude cord impingement at these levels. Consider MRI of the cervical spine for further assessment if clinically warranted. The [facility] staff will call to confirm receipt of this report with acknowledgement of the findings and any recommendations. Brain MRI 09/17/23 15:45 IMPRESSION: There are multiple anatomic findings that raise the concern for widespread osseous metastatic disease. There is parenchymal edema located within the left anterior temporal lobe that may represent intracranial invasion of a metastasis involving the left greater sphenoid wing. A dedicated postcontrast MRI of the brain can be obtained for better anatomic characterization of this finding. Otherwise no intracranial mass effect or hydrocephalus. No evidence of acute territorial infarct or hemorrhage. This critical result was discussed with Mayank Rockwell at 4:16 PM on 09/17/2023 and it was ascertained that the content and urgency of the report was understood at the time of direct communication. Brain MRI 09/17/23 18:49 FINDINGS/IMPRESSION: Diffuse enhancement involving the osseous structures, including the calvarium, skull base, maxillofacial bones, and imaged cervical spinal column again concerning for widespread osseous metastatic disease. Thin reactive pachymeningeal enhancement along the bilateral cerebral convexities. 1.5 x 1.3 cm nodular enhancement within the anterior aspect of the left middle cranial fossa appears to be both intra and extra-axial with involvement of the left temporal pole as evidenced by lack of clearly delineated CSF plane on prior MRI. This is contiguous with osseous metastatic disease eroding the inferior aspect of the left sphenoid wing and a portion of the the posterolateral wall of the left orbit, better illustrated on prior CT. There is minimal extraosseous disease noted within the posterolateral left extraconal orbit abutting the posterior aspect of the left lateral rectus muscle (image 11, series 3) and possible extraosseous extension into the left temporalis fossa involving the deep fibers of the left temporalis muscle. There may also be minimal infiltration along the roof of the left pterygomaxillary fissure. Pulsation artifact versus metastases within the left greater than right occipital lobes (images 11-13, series 3) and apparent enhancement versus artifact within the posterior fossa would be better evaluated on 3-D MPRAGE/GUSMAN postcontrast sequences. Please refer to separate brain MRI for discussion of additional findings. Brain MRI 09/19/23 10:50 IMPRESSION: There is diffuse dural thickening and enhancement most likely representing reactive changes in the setting of widespread osseous metastatic disease. There is also a focus of parenchymal enhancement involving the left anterior temporal lobe measuring approximately 1.7 cm in maximal transaxial dimension most likely representing direct intracranial extension of tumor. Otherwise no abnormal parenchymal enhancement visualized elsewhere within the intracranial compartment. No intracranial mass effect or hydrocephalus. Bone Scan Nuclear Medicine 09/19/23 12:20 IMPRESSION: Abnormal study showing features highly suspicious for near diffuse osseous metastasis. Assessment and Plan Patient Active problem list reviewed?: Yes (1) Cancer, metastatic to bone Status: Acute Assessment and plan: 73-year-old lady with a remote history of breast cancer, the right breast, status post lumpectomy and radiation. She now presents with a right facial droop. MRI of the brain revealed: Diffuse enhancement involving the osseous structures, including the calvarium, skull base, maxillofacial bones, and imaged cervical spinal column again concerning for widespread osseous metastatic disease. Thin reactive pachymeningeal enhancement along the bilateral cerebral convexities. 1.5 x 1.3 cm nodular enhancement within the anterior aspect of the left middle cranial fossa appears to be both intra and extra-axial with involvement of the left temporal pole as evidenced by lack of clearly delineated CSF plane on prior MRI. This is contiguous with osseous metastatic disease eroding the inferior aspect of the left sphenoid wing and a portion of the the posterolateral wall of the left orbit, better illustrated on prior CT. There is minimal extraosseous disease noted within the posterolateral left extraconal orbit abutting the posterior aspect of the left lateral rectus muscle (image 11,series 3) and possible extraosseous extension into the left temporalis fossa involving the deep fibers of the left temporalis muscle. There may also be minimal infiltration along the roof of the left pterygomaxillary fissure. Pulsation artifact versus metastases within the left greater than right occipital lobes (images 11-13, series 3) and apparent enhancement versus artifact within the posterior fossa would be better evaluated on 3-D MPRAGE/GUSMAN postcontrast sequences. Please refer to separate brain MRI for discussion of additional findings. Multiple anatomic findings that raise the concern for widespread osseous metastatic disease. There is parenchymal edema localized within the left anterior temporal lobe that may represent intracranial invasion of a metastasis involving the greater sphenoid wing. Pancytopenia likely related to bone marrow metastases. LFT abnormalities are likely also related to micro metastatic disease in the liver. PLAN: To proceed with a bone scan to look for evidence of systemic bony metastases.(will be done in the morning.) This will help provide a safer site for biopsy. Other option is to proceed with a bone marrow aspirate and biopsy. Will repeat brain MRI with 3-D MPRAGE/GUSMAN postcontrast sequences. For now, focus on pain management and symptoms alleviation. Thank you for the consult, - Time Spent With Patient Time Spent with Patient (in minutes): 15
[2023-09-21] MEDS: oxyCODONE HCl Immed Release 5 MG TABLET 10 MG PO (12:15)
--- NOTE | 2023-09-21 12:35 | P.PNIM_ITS ---
Subjective Subjective Date of Service: 09/21/23 Interval History: Admitted for right facial paresthesias and headache workup showed diffuse osseous metastasis. Complaining of decreased appetite, persistent bilateral shoulder and diffuse back pain, no recurrent facial paresthesias, last bowel movement 09/17, denies abdominal pain, Parker catheter placed due to urinary retention. Review of Systems All other system reviewed and are negative. Physical Exam 2 Vital Signs: Vital Signs: Last Vital Signs Temp 98.9 F 09/21/23 11:40 Pulse 95 09/21/23 11:40 Resp 18 09/21/23 11:40 BP 151/67 H 09/21/23 11:40 Pulse Ox 94 09/21/23 11:40 O2 Del Method Room Air 09/21/23 11:40 BMI result Body Mass Index 23.8 Const: Other: General appears weak, communicating in feeble voice. Sclera icteric Neck supple no JVD. CVS regular rate rhythm, tachycardic Respiratory lungs clear to auscultation, no respiratory distress, no wheeze, no rhonchi. Gastrointestinal abdomen soft, non tender, bowel sounds audible, no guarding , no rigidity. Extremities no edema. Neuro non focal , face symmetrical Skin jaundiced psyche depressed affect Objective Data Active Medications Acetaminophen (Acetaminophen 325 Mg Tablet) 650 mg PO Q6H PRN PRN Reason: Pain, Mild (Pain Scale 1-3), fever or headache Last Admin: 09/19/23 18:09 Dose: 650 mg Documented By: ELLI Calcium Carbonate (Calcium Carbonate 750 Mg Tab.Chew) 750 mg PO Q4H PRN PRN Reason: Heartburn Dexamethasone Sodium Phosphate (Dexamethasone Sod Phosphate 4 Mg/Ml Vial) 4 mg IVPUSH BID [facility] Last Admin: 09/21/23 08:25 Dose: 4 mg Documented By: IRMA Docusate Sodium (Docusate Sodium 100 Mg/10 Ml Liquid) 100 mg PO BID [facility] Last Admin: 09/21/23 08:25 Dose: 100 mg Documented By: IRMA Hydromorphone HCl (Hydromorphone Hcl 1 Mg/Ml Syringe) 1 mg IVPUSH Q3H PRN; Protocol PRN Reason: Pain, Severe (Pain Scale 7-10) Last Admin: 09/20/23 06:06 Dose: 1 mg Documented By: DARNELL Hydroxyzine HCl (Hydroxyzine Hcl 50 Mg Tablet) 50 mg PO Q6H PRN PRN Reason: anxiety/restlessness Last Admin: 09/19/23 18:10 Dose: 50 mg Documented By: ELLI Lidocaine (Lidocaine 4 % Patch Adh..Patch) 1 patch TRANSDERMA DAILY [facility]; Protocol Last Admin: 09/21/23 08:26 Dose: 1 patch Documented By: IRMA Magnesium Hydroxide (Milk Of Magnesia 30 Ml Oral.Susp) 30 ml PO BID PRN PRN Reason: Constipation Melatonin (Melatonin 3 Mg Tablet) 6 mg PO BEDTIME PRN PRN Reason: Insomnia Metoprolol Succinate (Metoprolol Succinate Er 50 Mg Tab.Er.24h) 50 mg PO DAILY [facility]; Protocol Last Admin: 09/21/23 08:25 Dose: 50 mg Documented By: IRMA Multivitamins/Vitamin C (Multivitamin Tablet) 1 tab PO DAILY [facility] Last Admin: 09/21/23 08:25 Dose: 1 tab Documented By: IRMA Omeprazole (Omeprazole 20 Mg Capsule.Dr) 20 mg PO DAILY@0630 [facility] Last Admin: 09/21/23 06:05 Dose: 20 mg Documented By: BIRD Ondansetron HCl (Ondansetron Hcl 4 Mg/2 Ml Vial) 4 mg IVPUSH Q8H PRN PRN Reason: Nausea and Vomiting Last Admin: 09/19/23 23:49 Dose: 4 mg Documented By: DARNELL Oxycodone HCl (Oxycodone Hcl Er 10 Mg Tab.Er.12h) 10 mg PO BID [facility] Last Admin: 09/21/23 08:25 Dose: 10 mg Documented By: IRMA Oxycodone HCl (Oxycodone Hcl Immed Release 5 Mg Tablet) 10 mg PO Q4H PRN PRN Reason: Pain, Moderate(Pain Scale 4-6) Last Admin: 09/21/23 12:15 Dose: 10 mg Documented By: IRMA Polyethylene Glycol (Polyethylene Glycol 3350 17 Gm Powd.Pack) 17 gm PO DAILY [facility] Last Admin: 09/21/23 08:26 Dose: 17 gm Documented By: IRMA Senna (Senna [place] Extract Oral Syrup 15 Ml Syrup) 15 ml PO BEDTIME [facility] Last Admin: 09/20/23 20:18 Dose: 15 ml Documented By: BIRD Sodium Chloride (0.9 % Sodium Chloride Flush 3 Ml Syringe) 3 ml IVFLUSH QSHIFT [facility] Last Admin: 09/21/23 08:26 Dose: 3 ml Documented By: IRMA Vitamin D (Cholecalciferol (Vitamin D3) 25 Mcg Tablet) 25 mcg PO DAILY [facility] Last Admin: 09/21/23 08:25 Dose: 25 mcg Documented By: IRMA Labs 09/20/23 07:39 09/20/23 07:39 Labs: Laboratory Results - last 24 hr 09/20/23 09/21/23 09/21/23 15:07 07:16 11:30 POC Glucose 194 H 159 H 183 H Assessment and Plan (1) Cancer, metastatic to bone: Status: Acute (2) Facial paresthesia: Status: Acute (3) Drug induced liver disease: Status: Acute (4) Thrombocytopenia: Status: Acute (5) Abnormal LFTs: Status: Acute Plan 73 female recently admitted for 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 Patient states she awoke from sleep with what she describes as a migraine and developed numbness and tingling around her nose that progressed to her right cheek and right jaw. Staff at rehab were concerned that there might be a facial asymmetry as well. Transferred to [facility]. Initial workup with head CT, CTA head and neck failed to demonstrate acute pathology. She will be admitted to complete workup for same 1. Facial paresthesias/headache due to diffuse osseous metastasis involving skull. Facial numbness resolved persistent headache and diffuse pain MRI brain showed diffuse bony enhancement involving the osseous structure including calvarium, skull bone, maxillofacial bones and imaged cervical spinal column. Case discussed with [facility] Tho GIANG regarding biopsy, he reviewed films and recommend outpatient follow-up with repeat CT in 1 week. Bone scan, showed features highly suspicious for near diffuse osseous metastasis involving skull vault, thoracic cage, upper extremities, both upper extremities, entire cervical, thoracic and lumbosacral spine and pelvis repeat MRI with 3-D MPRAGE/GUSMAN postcontrast sequences showed diffuse osseous metastasis as well as left anterior temporal lobe enhancement. History of breast cancer, likely metastatic disease related to it ,case discussed with Dr. Vasquez placed on IV dexamethasone 4 mg b.i.d., CA 27.29 pending Will DC bone marrow biopsy Dr. Vasquez will consider bone biopsy if needed on Friday. 2. 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 -total bili remains elevated but stable,transaminases improving, Alk-phos remains elevated but stable, -outpatient GI follow-up, continue steroids changed to IV for metastatic bony disease. 3. Pancytopenia [place] to be related to medication reaction as above, but seems likely due to metastatic disease, noted to have drop in hematocrit ,no acute bleeding noted follow CBC , transfuse packed RBC as needed. 4. Type 2 diabetes -point of care acceptable on steroids, hemoglobin A1c 6.9, previously was on metformin currently on hold due to question cause of drug-induced liver disease. -follow clinically 5. Hyperlipidemia continue to hold statins. 6. Bilateral shoulder and back pain due to diffuse osseous metastasis placed on IV Dilaudid/oxycodone and OxyContin, continue bowel regimen and follow. 7. Urinary retention with no prior history likely due to narcotics, decreased mobility on Parker catheter. Spoke with patient's and son and informed them about abnormal test results with diffuse metastatic bony lesions, possibly arising from breast cancer but will need further testing as per Oncology. Full code Lovenox Patient will require continued inpatient hospitalization due to further testing with persistent diffuse pain requiring IV analgesics abnormal LFTs and CBC and continued expert consultation . Quality Quality Stroke Does the patient have a stroke diagnosis?: No VTE Prior VTE?: No VTE Risk Level:: Medical - moderate - high VTE Device Contraindication: Treatment Not Indicated VTE Drug Contraindication: N/A - Med Ordered
[2023-09-21] MEDS: Lactulose 20 GM/30 ML SOLUTION 10 GM PO (13:31)
[2023-09-21 15:43] LABS: Glucose, Whole Blood 245 mg/dL (60-115)
[2023-09-21 15:44] VITALS: BP 141/62; PULSE 98; RESP 18; TEMP 36.7; O2SAT 94
[2023-09-21 20:00] VITALS: BP 161/72; PULSE 101; RESP 20; TEMP 36.8; O2SAT 96
[2023-09-21 20:08] LABS: Glucose, Whole Blood 173 mg/dL (60-115)
[2023-09-21] MEDS: ondansetron HCL 4 MG/2 ML VIAL IVPUSH (21:26)
[2023-09-22] VITALS (12 sets, daily range): BP systolic 131–174; BP diastolic 61–77; PULSE 82–99; RESP 16–18; TEMP 36.2–36.9; O2SAT 95–98
[2023-09-22] MEDS: Acetaminophen 325 MG TABLET 650 MG PO ×2 (05:36→17:10)
[2023-09-22] MEDS: oxyCODONE HCl Immed Release 5 MG TABLET 10 MG PO ×2 (05:36→16:05)
[2023-09-22] MEDS: ondansetron HCL 4 MG/2 ML VIAL IVPUSH (05:37)
[2023-09-22] MEDS: Omeprazole 20 MG CAPSULE.DR PO (05:37)
[2023-09-22 07:34] LABS: Glucose, Whole Blood 176 mg/dL (60-115)
[2023-09-22] MEDS: dexAMETHasone sod phosphate 4 MG/ML VIAL IVPUSH ×2 (08:07→23:46)
[2023-09-22] MEDS: Cholecalciferol (Vitamin D3) 25 MCG TABLET PO (08:08)
[2023-09-22] MEDS: oxyCODONE HCl ER 10 MG TAB.ER.12H PO ×2 (08:08→21:12)
[2023-09-22] MEDS: 0.9 % Sodium Chloride Flush 3 ML SYRINGE IVFLUSH ×3 (08:08→23:46)
[2023-09-22] MEDS: Lidocaine 4 % Patch ADH..PATCH 1 PATCH TRANSDERMA (08:09)
[2023-09-22] MEDS: Multivitamin TABLET 1 TAB PO (08:09)
[2023-09-22] MEDS: Metoprolol Succinate ER 50 MG TAB.ER.24H PO (08:09)
[2023-09-22 09:10] LABS: Hematocrit 22.4 % (37.0-47.0); Hemoglobin 7.3 g/dl (12.0-16.0); Mean Corpuscular HGB Conc 32.6 g/dl (31.0-35.0); Mean Corpuscular Hemoglobin 26.7 pg (27.0-33.0); Mean Corpuscular Volume 82.1 fL (80.0-98.0); Mean Platelet Volume 9.3 fL (9.4-12.3); Red Blood Count 2.73 X10*6/uL (4.20-5.50)
[2023-09-22 09:28] LABS: Alanine Aminotransferase 62 U/L (0-31); Albumin Level 2.5 g/dL (3.5-5.0); Alkaline Phosphatase 737 U/L (39-117); Anion Gap 16 (12-20); Aspartate Amino Transferase 56 U/L (5-31); Bilirubin Total 3.6 mg/dL (0.0-1.0); Blood Urea Nitrogen 45 mg/dL (9-16); Calcium 9.6 mg/dL (8.4-10.2); Carbon Dioxide 25 mmol/L (22-29); Chloride 96 mmol/L (96-108); Creatinine Clr Calc Pharmacy 54.2; Estimated Glomerular Filt Rate > 60; Glucose Random 231 mg/dL (60-115); Potassium 4.8 mmol/L (3.3-5.1); Sodium 132 mmol/L (135-145); Total Protein 5.5 g/dL (6.5-8.0)
[2023-09-22 09:35] LABS: Platelet Count 38 X10*3/uL (160-400)
--- NOTE | 2023-09-22 10:34 | MHC.CM.PN ---
Per ROUNDS discussion, Patient is not yet medically cleared for dc (pain management) DC plan is still TBD (Home with services or Hospice vs STR @ SNF).CM will follow.
--- NOTE | 2023-09-22 10:42 | P.PNHO-ONC_ITS ---
Medical Summary - Medical Summary Date of Service: 09/22/23 Chief complaint: Headache Primary Care Provider: Li Whitehead MD Medical Summary: She was recently admitted to the hospital with a 2 weeks stay, between 09/02 and 09/17/23 She was noted to have elevated LFTs. Pancytopenia. Liver biopsy revealed: Acute hepatitis with cholestasis. She was sent home on a steroid trial. Discharge summary: Leukocytosis of 11.0. Normocytic anemia with h/h 10.3/29.9%. Renal fx normal, lytes normal except for Na 134, Ca 10.7. Glucose 133. Initial trop 17.3, repeat 24.8. EKG shows sinus tach, no acute ischemic changes. Head CT negative for acute intracranial abnormality. CTA chest negative for PE, shows pleural parenchymal irregularity along the anterior/anterolateral aspect of the ELISA with punctate calcifications with bilateral pulmonary nodules. Patient was admitted to telemetry where monitor failed to demonstrate a pathological rhythms. Seen by Cardiology and a cardiac event was ruled out. Patient was seen in consultation by Gastroenterology and Hematology for abnormal liver function tests and pancytopenia. Autoimmune panel was drawn and was unremarkable. Ultimately patient underwent a liver biopsy which demonstrated medication induced hepatitis. She was started on steroids and over the next several days liver function tests improved as well as pancytopenia. Case was discussed with GI who recommended prednisone taper; 40 mg daily x7 days followed by 35 mg daily x7 days followed by 30 mg daily x7 days followed by 25 mg daily x7 days followed by 20 mg daily x7 days followed by 15 mg daily x7 days followed by 10 mg daily x7 days followed by 5 mg daily x7 days. Patient needs CBC and chemistry profile every 3 days until both pancytopenia and liver function tests have normalized. PAST MEDICAL HISTORY: Patient was treated for left breast cancer 24 years ago. She underwent lumpectomy followed by radiation therapy and 5 years of tamoxifen. She did not receive chemotherapy. She underwent hysterectomy around the same time. FAMILY HISTORY: This no family history of breast cancer or any other cancers that she can recall. No family history of diabetes either. 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 She is . Has 3 children. She used to smoke a pack a day quit few weeks ago. Denies alcohol. Interval History Interval history: Jaclyn Looney is a 73 year old lady admitted with right facial droop. She complains she developed a severe headache, rarely slept in this a.m. She then developed numbness and tingling around her nose that progressed to her cheek and down to her chin. She was noted to have a right facial droop. She was transferred to [facility] for evaluation MRI of the brain revealed: Diffuse enhancement involving the osseous structures, including the calvarium, skull base, maxillofacial bones, and imaged cervical spinal column again concerning for widespread osseous metastatic disease. Thin reactive pachymeningeal enhancement along the bilateral cerebral convexities. 1.5 x 1.3 cm nodular enhancement within the anterior aspect of the left middle cranial fossa appears to be both intra and extra-axial with involvement of the left temporal pole as evidenced by lack of clearly delineated CSF plane on prior MRI. This is contiguous with osseous metastatic disease eroding the inferior aspect of the left sphenoid wing and a portion of the the posterolateral wall of the left orbit, better illustrated on prior CT. There is minimal extraosseous disease noted within the posterolateral left extraconal orbit abutting the posterior aspect of the left lateral rectus muscle (image 11,series 3) and possible extraosseous extension into the left temporalis fossa involving the deep fibers of the left temporalis muscle. There may also be minimal infiltration along the roof of the left pterygomaxillary fissure. Pulsation artifact versus metastases within the left greater than right occipital lobes (images 11-13, series 3) and apparent enhancement versus artifact within the posterior fossa would be better evaluated on 3-D MPRAGE/GUSMAN postcontrast sequences. Please refer to separate brain MRI for discussion of additional findings. Multiple anatomic findings that raise the concern for widespread osseous metastatic disease. There is parenchymal edema localized within the left anterior temporal lobe that may represent intracranial invasion of a metastasis involving the greater sphenoid wing. CTA of head and neck revealed: 5. Multilevel cervical spondylosis and significant spinal canal stenosis as discussed above. Cannot exclude cord impingement at these levels. Consider MRI of the cervical spine for further assessment if clinically warranted. She complains of right-sided headache. No nausea or emesis. No fever or chills. [facility] Medical History: Medical History (Last Reviewed 09/17/23 @ 09:07 by Mayank Rockwell DO) Cancer of breast Chest pain Hyperlipidemia Irregular heart beat Kidney stone Type 2 diabetes mellitus with hyperglycemia, without long-term current use of insulin Functional capacity: bed bound Family History: Family History (Last Reviewed 09/17/23 @ 09:07 by Mayank Rockwell DO) Mother Tuberculosis Brother Myocardial infarction, Onset Age: 55 Skin cancer Father Skin cancer Surgical History: Surgical History (Last Reviewed 09/17/23 @ 09:07 by Mayank Rockwell DO) H/O colonoscopy History of lumpectomy of left breast History of surgery on arm Hx of thumb surgery S/P JUSTIN (total abdominal hysterectomy) Social History: Social History (Last Reviewed 09/17/23 @ 09:07 by Mayank Rockwell DO) Living Situation History: Household Members: Spouse Housing: House Do you presently have visiting nurse or other home services: No Alcohol History Details: 1. How often do you have a drink containing alcohol?: a. Never 3. How often do you have six or more drinks on one occasion?: a. Never AUDIT-C Alcohol total score: 0 Currently Displaying Signs/Symptoms of Alcohol Withdrawal: No Tobacco History: Patient Tobacco Use Status: Never used Tobacco Tobacco use type: Cigarette Smoked in Last 30 Days: No e-Cigarette/Vaping Use: Never Used Patient Interested in Nicotine Replacement: No Patient Given Instructions on How to Stop Smoking: No Second Hand Smoke Exposure: No Substance Use History: Use of substances other than those prescribed or required for medical reasons : No Currently Displaying Signs/Symptoms of Drug Intoxication Withdrawal: No Any prior treatment program specific to substance use: No Domestic Abuse History: Have you been hit, kicked, punched, or otherwise hurt by someone within the past year? If so, by whom?: No Do you feel safe in your current relationship?: Yes Is there a partner from a previous relationship who is making you feel unsafe now?: No Are you made to feel afraid or neglected: No Healthcare Practices: Rastafari Healthcare Practices: Adventist Advance Directives: Advance Directives: No Advance Directives Information Provided: No Homicidal Assessment: Do you have a plan to hurt others: No Plan Nutrition Assessment: Recently lost weight without trying: Yes How much weight loss: 2-13 pounds Eating poorly because of decreased appetite: No Nutrition screen score: 3 Nutrition Risks: No Nutritional Risk Patient : No : No Poor oral hygiene: No Occupation Assessmet: service: No Current occupational status: retired Home Medications and Allergies Current Medications: Current Medications Acetaminophen (Acetaminophen 325 Mg Tablet) 650 mg PO Q6H PRN PRN Reason: Pain, Mild (Pain Scale 1-3), fever or headache Last Admin: 09/22/23 05:36 Dose: 650 mg Calcium Carbonate (Calcium Carbonate 750 Mg Tab.Chew) 750 mg PO Q4H PRN PRN Reason: Heartburn Dexamethasone Sodium Phosphate (Dexamethasone Sod Phosphate 4 Mg/Ml Vial) 4 mg IVPUSH BID [facility] Last Admin: 09/22/23 08:07 Dose: 4 mg Docusate Sodium (Docusate Sodium 100 Mg/10 Ml Liquid) 100 mg PO BID [facility] Last Admin: 09/22/23 08:10 Dose: Not Given Hydromorphone HCl (Hydromorphone Hcl 0.5 Mg/0.5 Ml Syringe) 0.5 mg IVPUSH Q3H PRN; Protocol PRN Reason: Pain, Severe (Pain Scale 7-10) Hydroxyzine HCl (Hydroxyzine Hcl 50 Mg Tablet) 50 mg PO Q6H PRN PRN Reason: anxiety/restlessness Last Admin: 09/19/23 18:10 Dose: 50 mg Lidocaine (Lidocaine 4 % Patch Adh..Patch) 1 patch TRANSDERMA DAILY [facility]; Protocol Last Admin: 09/22/23 08:09 Dose: 1 patch Magnesium Hydroxide (Milk Of Magnesia 30 Ml Oral.Susp) 30 ml PO BID PRN PRN Reason: Constipation Melatonin (Melatonin 3 Mg Tablet) 6 mg PO BEDTIME PRN PRN Reason: Insomnia Metoprolol Succinate (Metoprolol Succinate Er 50 Mg Tab.Er.24h) 50 mg PO DAILY [facility]; Protocol Last Admin: 09/22/23 08:09 Dose: 50 mg Multivitamins/Vitamin C (Multivitamin Tablet) 1 tab PO DAILY [facility] Last Admin: 09/22/23 08:09 Dose: 1 tab Omeprazole (Omeprazole 20 Mg Capsule.Dr) 20 mg PO DAILY@0630 [facility] Last Admin: 09/22/23 05:37 Dose: 20 mg Ondansetron HCl (Ondansetron Hcl 4 Mg/2 Ml Vial) 4 mg IVPUSH Q8H PRN PRN Reason: Nausea and Vomiting Last Admin: 09/22/23 05:37 Dose: 4 mg Oxycodone HCl (Oxycodone Hcl Er 10 Mg Tab.Er.12h) 10 mg PO BID [facility] Last Admin: 09/22/23 08:08 Dose: 10 mg Oxycodone HCl (Oxycodone Hcl Immed Release 5 Mg Tablet) 10 mg PO Q4H PRN PRN Reason: Pain, Moderate(Pain Scale 4-6) Last Admin: 09/22/23 05:36 Dose: 10 mg Polyethylene Glycol (Polyethylene Glycol 3350 17 Gm Powd.Pack) 17 gm PO DAILY [facility] Last Admin: 09/22/23 00:13 Dose: Not Given Senna (Senna Moonshine Extract Oral Syrup 15 Ml Syrup) 15 ml PO BEDTIME [facility] Last Admin: 09/21/23 21:46 Dose: Not Given Sodium Chloride (0.9 % Sodium Chloride Flush 3 Ml Syringe) 3 ml IVFLUSH QSHIFT [facility] Last Admin: 09/22/23 08:08 Dose: 3 ml Vitamin D (Cholecalciferol (Vitamin D3) 25 Mcg Tablet) 25 mcg PO DAILY [facility] Last Admin: 09/22/23 08:08 Dose: 25 mcg Home Medications ?Medication ?Instructions ?Recorded ?Confirmed ?Type metoprolol succinate 50 mg 50 mg PO DAILY 08/19/23 09/17/23 History tablet,extended release 24 hr cholecalciferol (vitamin D3) 25 25 mcg PO DAILY 08/31/23 09/17/23 History mcg (1,000 unit) tablet (Vitamin D3) multivitamin 1 tab PO DAILY 08/31/23 09/17/23 History omeprazole 20 mg capsule,delayed 20 mg PO DAILY@0630 09/17/23 09/17/23 History release prednisone 20 mg tablet 40 mg PO DAILY 09/17/23 09/17/23 History Allergies Allergy/AdvReac Type Severity Reaction Status Date / Time sulfamethoxazole Allergy Intermediate HIVES Verified 09/17/23 05:52 [From Bactrim] trimethoprim [From Bactrim] Allergy Intermediate HIVES Verified 09/17/23 05:52 amoxicillin [Amoxicillin] Allergy Mild RASH Verified 09/17/23 05:52 Sulfa (Sulfonamide Allergy Unknown Hives Verified 09/17/23 05:52 Antibiotics) Exam Vital signs: Vital Signs Temp 97.3 F 09/22/23 07:34 Pulse 92 09/22/23 08:09 Resp 17 09/22/23 07:34 BP 131/61 09/22/23 08:09 Pulse Ox 95 09/22/23 07:34 O2 Del Method Room Air 09/22/23 07:34 Intake & Output 09/21/23 09/22/23 09/22/23 18:59 06:59 18:59 Intake Total 360 / 480 120 / 480 Output Total 700 / 1001 301 / 1001 Balance -340 / -521 -181 / -521 Urine Output (Average ml/kg/hr) 0.87 0.37 Intake: Intake, Oral Amount 360 / 480 120 / 480 Output: Output, Stool Amount 1 / Output, Urine Amount (Catheter) 700 / 1000 300 / 1000 Straight 700 / 1000 300 / 1000 Other: Number of Bowel Movements 1 3 Urine leone Urine Color Cloudy with Sediment Concentrated Last Bowel Movement 09/18/23 09/21/23 Stool Incontinent Incontinent Stool Amount Moderate Stool Color Brown Brown Stool Consistency Liquid Liquid Weight 66.9 kg BMI result Body Mass Index 23.8 - Constitutional Present: no acute distress, somnolent - Routine HEENT Exam Head: Present: atraumatic - Routine Neck Exam Present: full ROM - Routine Respiratory Exam Present: decreased breath sounds, wheezes - Routine Cardiovascular Exam Cardiovascular: Present: RRR - Routine Abdominal Exam Present: diminished bowel sounds - Routine Extremities Exam Present: tenderness - Detailed Neurological Exam: Coma Scale Eye Opening: Spontaneous (4) Data - Labs CBC & Chem 7: 09/22/23 09:03 09/22/23 09:03 - Imaging Radiologist's impression: ITS Impressions Head CT 09/17/23 05:51 IMPRESSION: No acute intracranial pathology. Chest X-Ray 09/17/23 06:38 IMPRESSION: No acute finding. Head/Neck CTA 09/17/23 07:36 IMPRESSION: 1. Partially calcified plaque at both carotid bulbs, with less than 50% diameter reduction stenosis of the proximal ICAs by NASCET criteria. 2. Short-segment moderate, nonflow-limiting stenosis of the supraclinoid left internal carotid artery. No intracranial arterial occlusion or other significant stenosis is identified. 3. Minimal chronic ischemic microangiopathy in the subcortical white matter of both frontal lobes. No acute territorial infarct. No pathologic intracranial enhancement. 4. Nonspecific subpleural opacity in the anterior left upper lobe, which could be inflammatory or post inflammatory in nature or less likely neoplastic. Recommend follow-up CT of the chest with contrast. 5. Multilevel cervical spondylosis and significant spinal canal stenosis as discussed above. Cannot exclude cord impingement at these levels. Consider MRI of the cervical spine for further assessment if clinically warranted. The [facility] staff will call to confirm receipt of this report with acknowledgement of the findings and any recommendations. Brain MRI 09/17/23 15:45 IMPRESSION: There are multiple anatomic findings that raise the concern for widespread osseous metastatic disease. There is parenchymal edema located within the left anterior temporal lobe that may represent intracranial invasion of a metastasis involving the left greater sphenoid wing. A dedicated postcontrast MRI of the brain can be obtained for better anatomic characterization of this finding. Otherwise no intracranial mass effect or hydrocephalus. No evidence of acute territorial infarct or hemorrhage. This critical result was discussed with Mayank Rockwell at 4:16 PM on 09/17/2023 and it was ascertained that the content and urgency of the report was understood at the time of direct communication. Brain MRI 09/17/23 18:49 FINDINGS/IMPRESSION: Diffuse enhancement involving the osseous structures, including the calvarium, skull base, maxillofacial bones, and imaged cervical spinal column again concerning for widespread osseous metastatic disease. Thin reactive pachymeningeal enhancement along the bilateral cerebral convexities. 1.5 x 1.3 cm nodular enhancement within the anterior aspect of the left middle cranial fossa appears to be both intra and extra-axial with involvement of the left temporal pole as evidenced by lack of clearly delineated CSF plane on prior MRI. This is contiguous with osseous metastatic disease eroding the inferior aspect of the left sphenoid wing and a portion of the the posterolateral wall of the left orbit, better illustrated on prior CT. There is minimal extraosseous disease noted within the posterolateral left extraconal orbit abutting the posterior aspect of the left lateral rectus muscle (image 11, series 3) and possible extraosseous extension into the left temporalis fossa involving the deep fibers of the left temporalis muscle. There may also be minimal infiltration along the roof of the left pterygomaxillary fissure. Pulsation artifact versus metastases within the left greater than right occipital lobes (images 11-13, series 3) and apparent enhancement versus artifact within the posterior fossa would be better evaluated on 3-D MPRAGE/GUSMAN postcontrast sequences. Please refer to separate brain MRI for discussion of additional findings. Brain MRI 09/19/23 10:50 IMPRESSION: There is diffuse dural thickening and enhancement most likely representing reactive changes in the setting of widespread osseous metastatic disease. There is also a focus of parenchymal enhancement involving the left anterior temporal lobe measuring approximately 1.7 cm in maximal transaxial dimension most likely representing direct intracranial extension of tumor. Otherwise no abnormal parenchymal enhancement visualized elsewhere within the intracranial compartment. No intracranial mass effect or hydrocephalus. Bone Scan Nuclear Medicine 09/19/23 12:20 IMPRESSION: Abnormal study showing features highly suspicious for near diffuse osseous metastasis. Assessment and Plan Patient Active problem list reviewed?: Yes (1) Pancytopenia Status: Acute Assessment and plan: 73-year-old lady with a remote history of left breast cancer, status post lumpectomy and radiation followed by 5 years of tamoxifen, treated at [facility] about 25 years ago. She presented in August with abnormal LFTs and worsening anemia. CT angiogram of chest was negative for pulmonary embolism. D-dimer is elevated. Ferritin another marker of inflammation is also high. LDH is over 1100. Normal vitamin B12 and folate levels. Peripheral smear evaluation shows no abnormal cells to suggest acute hematological process such as leukemia. She has had a colonoscopy in 2022 which showed benign polyps. She had CT abdomen/pelvis with contrast on 09/02/2023 which showed normal liver, spleen and pancreas. Mottled nephrogram suggestive of parenchymal renal disease or multifocal pyelonephritis, left renal calculi, status post hysterectomy. Patient has had liver biopsy on 09/08/2023. Preliminary report favors drug- induced hepatitis. She now presents with a right facial droop. MRI brain showed diffuse bony enhancement involving the osseous structure including calvarium, skull bone, maxillofacial bones and imaged cervical spinal column. Case discussed with [facility] Neurosurgery Tho GIANG regarding biopsy, he reviewed films and recommend outpatient follow-up with repeat CT in 1 week. Bone scan, showed features highly suspicious for near diffuse osseous metastasis involving skull vault, thoracic cage, upper extremities, entire cervical, thoracic and lumbosacral spine and pelvis. I reviewed bone scan as well as CT images with radiologist. There is no discrete focus of abnormality based on bone scan or CT scans for biopsy, random bone marrow biopsy however can be performed. Alternatively, biopsy of skull bone by Neurosurgery at [facility] can be performed. 2. Worsening pancytopenia. Probably related to diffuse bone metastasis and liver disease. Transfuse PRBC to keep hemoglobin above 8 gram/dL. - Time Spent With Patient Time Spent with Patient (in minutes): 20
[2023-09-22 11:40] LABS: Glucose, Whole Blood 193 mg/dL (60-115)
--- NOTE | 2023-09-22 14:59 | P.PNIM_ITS ---
Subjective Subjective Date of Service: 09/22/23 Interval History: c/o R facial paresthesias no facial droop KEANE improved Review of Systems Review of Systems: Yes all other systems are reviewed and are negative Physical Exam 2 Vital Signs: Vital Signs: Last Vital Signs Temp 97.3 F 09/22/23 11:45 Pulse 82 09/22/23 11:45 Resp 18 09/22/23 11:45 BP 144/65 H 09/22/23 11:45 Pulse Ox 95 09/22/23 11:45 O2 Del Method Room Air 09/22/23 11:45 BMI result Body Mass Index 23.8 Gen: in no acute distress, weak/pale HEENT: sclera slightly icteric, moist mucus membranes Neck: supple Lungs: clear to auscultation bilaterally Heart: regular rate and rhythm, no murmurs Abd: soft, non-tender, non-distended Ext: no edema Skin: warm/well-perfused Neuro: alert and oriented x3, no focal findings Psych: appropriate affect Objective Data Active Medications Acetaminophen (Acetaminophen 325 Mg Tablet) 650 mg PO Q6H PRN PRN Reason: Pain, Mild (Pain Scale 1-3), fever or headache Last Admin: 09/22/23 05:36 Dose: 650 mg Documented By: DURGA Comments: per patient request Calcium Carbonate (Calcium Carbonate 750 Mg Tab.Chew) 750 mg PO Q4H PRN PRN Reason: Heartburn Dexamethasone Sodium Phosphate (Dexamethasone Sod Phosphate 4 Mg/Ml Vial) 4 mg IVPUSH BID [facility] Last Admin: 09/22/23 08:07 Dose: 4 mg Documented By: MARINA Docusate Sodium (Docusate Sodium 100 Mg/10 Ml Liquid) 100 mg PO BID [facility] Last Admin: 09/22/23 08:10 Dose: Not Given Documented By: MARINA Non-Admin Reason: Patient Refused Hydromorphone HCl (Hydromorphone Hcl 0.5 Mg/0.5 Ml Syringe) 0.5 mg IVPUSH Q3H PRN; Protocol PRN Reason: Pain, Severe (Pain Scale 7-10) Hydroxyzine HCl (Hydroxyzine Hcl 50 Mg Tablet) 50 mg PO Q6H PRN PRN Reason: anxiety/restlessness Last Admin: 09/19/23 18:10 Dose: 50 mg Documented By: HO.GUILMAT Sodium Chloride (Ns) 100 mls @ 100 mls/hr IV ONCE ONE Stop: 09/22/23 15:47 Sodium Chloride (Ns) 100 mls @ 100 mls/hr IV ONCE ONE Stop: 09/22/23 15:47 Lidocaine (Lidocaine 4 % Patch Adh..Patch) 1 patch TRANSDERMA DAILY [facility]; Protocol Last Admin: 09/22/23 08:09 Dose: 1 patch Documented By: MARINA Magnesium Hydroxide (Milk Of Magnesia 30 Ml Oral.Susp) 30 ml PO BID PRN PRN Reason: Constipation Melatonin (Melatonin 3 Mg Tablet) 6 mg PO BEDTIME PRN PRN Reason: Insomnia Metoprolol Succinate (Metoprolol Succinate Er 50 Mg Tab.Er.24h) 50 mg PO DAILY [facility]; Protocol Last Admin: 09/22/23 08:09 Dose: 50 mg Documented By: MARINA Multivitamins/Vitamin C (Multivitamin Tablet) 1 tab PO DAILY [facility] Last Admin: 09/22/23 08:09 Dose: 1 tab Documented By: MARINA Omeprazole (Omeprazole 20 Mg Capsule.Dr) 20 mg PO DAILY@0630 [facility] Last Admin: 09/22/23 05:37 Dose: 20 mg Documented By: DURGA Ondansetron HCl (Ondansetron Hcl 4 Mg/2 Ml Vial) 4 mg IVPUSH Q8H PRN PRN Reason: Nausea and Vomiting Last Admin: 09/22/23 05:37 Dose: 4 mg Documented By: DURGA Oxycodone HCl (Oxycodone Hcl Er 10 Mg Tab.Er.12h) 10 mg PO BID [facility] Last Admin: 09/22/23 08:08 Dose: 10 mg Documented By: MARINA Oxycodone HCl (Oxycodone Hcl Immed Release 5 Mg Tablet) 10 mg PO Q4H PRN PRN Reason: Pain, Moderate(Pain Scale 4-6) Last Admin: 09/22/23 05:36 Dose: 10 mg Documented By: DURGA Comments: per patient request, did not want Dilaudid Polyethylene Glycol (Polyethylene Glycol 3350 17 Gm Powd.Pack) 17 gm PO DAILY [facility] Last Admin: 09/22/23 00:13 Dose: Not Given Documented By: DURGA Non-Admin Reason: diarrhea Senna (Senna Achille Extract Oral Syrup 15 Ml Syrup) 15 ml PO BEDTIME [facility] Last Admin: 09/21/23 21:46 Dose: Not Given Documented By: IRMA Non-Admin Reason: Patient Refused Comments: md sousa Sodium Chloride (0.9 % Sodium Chloride Flush 3 Ml Syringe) 3 ml IVFLUSH QSHIFT [facility] Last Admin: 09/22/23 08:08 Dose: 3 ml Documented By: MARINA Vitamin D (Cholecalciferol (Vitamin D3) 25 Mcg Tablet) 25 mcg PO DAILY [facility] Last Admin: 09/22/23 08:08 Dose: 25 mcg Documented By: MARINA Labs 09/22/23 09:03 09/22/23 09:03 Labs: Laboratory Results - last 24 hr 09/21/23 09/21/23 09/22/23 15:27 19:54 07:30 MCV MCH MCHC RDW Plt Count MPV Absolute Nucleated RBC Nucleated RBC % (auto) Anion Gap Estim Creat Clear Calc Estimated GFR POC Glucose 245 H 173 H 176 H Random Glucose Calcium Total Bilirubin AST ALT Alkaline Phosphatase Total Protein Albumin Blood Type Antibody Screen Crossmatch 09/22/23 09/22/23 09/22/23 09:03 11:28 13:01 MCV 82.1 MCH 26.7 L MCHC 32.6 RDW 18.0 H Plt Count 38 L D MPV 9.3 L Absolute Nucleated RBC 0.110 H Nucleated RBC % (auto) 11.0 H Anion Gap 16 Estim Creat Clear Calc 54.2 Estimated GFR > 60 POC Glucose 193 H Random Glucose 231 H Calcium 9.6 Total Bilirubin 3.6 H AST 56 H ALT 62 H Alkaline Phosphatase 737 H Total Protein 5.5 L Albumin 2.5 L Blood Type O Negative Antibody Screen NEGATIVE Crossmatch See Detail Assessment and Plan (1) Cancer, metastatic to bone: Status: Acute (2) Facial paresthesia: Status: Acute (3) Drug induced liver disease: Status: Acute (4) Thrombocytopenia: Status: Acute (5) Abnormal LFTs: Status: Acute Plan d5 73yo F with recent admission to [facility] [place] 08/30-09/16/23 for 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- Case discussed with [facility] Neurosurgery hTo GIANG regarding biopsy; he reviewed films and recommend outpatient follow-up with repeat CT in 1 week - Bone scan, showed features highly suspicious for near diffuse osseous metastasis involving skull vault, thoracic cage, upper extremities, both upper extremities, entire cervical, thoracic and lumbosacral spine and pelvis - Repeat MRI with 3-D MPRAGE/GUSMAN postcontrast sequences showed diffuse osseous metastasis as well as left anterior temporal lobe enhancement. - She has a history of breast cancer, though remote [25 yr ago]. Concern of metastatic disease related to it. Case discussed with Dr. Vasquez and placed on IV dexamethasone 4 mg b.i.d. CA 27.29 pending. Bone marrow biopsy to be done tomorrow by IR pancytopenia - Will transfer 2u pRBCs and monitor CBCd daily. Likely due to marrow replacement. DILI - was discharged on prednisone taper, currently on dexamethasone as above DM2, A1c 6.9 - MTF discontinued due to DILI; correction-dose lispro for now HLD - statin on hold due to DILI bony pain - continue IV hydromorphone, PO oxycodone ER + IR urinary retention - on Parker VTE ppx - SCDs, d/c LMWH due to thrombocytopenia dispo - TBD In my clinical judgment, the patient requires continued inpatient hospitalization for the following reasons: pancytopenia, marrow biopsy I updated pt's and daughter at bedside Total time managing care of this patient today: 50 minutes. Quality Stroke Does the patient have a stroke diagnosis?: No VTE Prior VTE?: No VTE Risk Level:: Medical - moderate - high VTE Device Contraindication: Treatment Not Indicated VTE Drug Contraindication: N/A - Med Ordered
[2023-09-22 16:34] LABS: Glucose, Whole Blood 269 mg/dL (60-115)
[2023-09-22] MEDS: Insulin Lispro 100 UNIT/ML 3 ML VIAL SUBCUT (16:42)
[2023-09-22] MEDS: HYDROmorphone HCl 0.5 MG/0.5 ML SYRINGE IVPUSH (19:49)
[2023-09-22 21:17] LABS: Glucose, Whole Blood 144 mg/dL (60-115)
[2023-09-23] VITALS (8 sets, daily range): BP systolic 142–174; BP diastolic 65–79; PULSE 88–108; RESP 18–20; TEMP 36.1–36.8; O2SAT 94–99
[2023-09-23] MEDS: oxyCODONE HCl Immed Release 5 MG TABLET 10 MG PO ×2 (00:30→05:39)
[2023-09-23] MEDS: HYDROmorphone HCl 0.5 MG/0.5 ML SYRINGE IVPUSH ×3 (04:26→14:31)
[2023-09-23] MEDS: Omeprazole 20 MG CAPSULE.DR PO (05:35)
[2023-09-23] MEDS: Acetaminophen 325 MG TABLET 650 MG PO (05:39)
[2023-09-23 07:14] LABS: Baso%MD 1.3 %; Hematocrit 31.8 % (37.0-47.0); Hemoglobin 11.1 g/dl (12.0-16.0); IG%MD 14.6 %; Lymph%MD 10.8 %; Mean Corpuscular HGB Conc 34.9 g/dl (31.0-35.0); Mean Corpuscular Hemoglobin 28.6 pg (27.0-33.0); Mean Platelet Volume 8.4 fL (9.4-12.3); Mono%MD 12.1 %; NRBC Pct Auto 12.1 /100WBC (0.0-0.2); Neut%MD 61.2 %; Platelet Count 32 X10*3/uL (160-400); Red Blood Count 3.88 X10*6/uL (4.20-5.50); Red Cell Distribution Width 16.3 % (11.0-16.0); White Blood Count 1.6 X10*3/uL (4.8-10.8)
[2023-09-23] MEDS: 0.9 % Sodium Chloride Flush 3 ML SYRINGE IVFLUSH ×2 (07:26→14:32)
[2023-09-23 07:38] LABS: Glucose, Whole Blood 147 mg/dL (60-115)
[2023-09-23 07:56] LABS: Band Neutrophils Percent 0 % (3-5); Lymphocytes Absolute Manual 0.2 X10*3/uL (1.2-4.9); Lymphocytes Percent Manual 13 % (20-40); Metamyelocytes Absolute 0.1 X10*3/uL; Metamyelocytes Percent 5 %; Monocytes Percent Manual 1 % (2-11); Myelocytes Absolute 0.1 X10*/uL; Myelocytes Percent 5 %; Neutrophils Absolute Manual 1.2 X10*3/uL (2.0-8.3); Neutrophils Percent Manual 75 % (45-73); Nucleated Red Blood Cells 11 /100WBC (0-0); Promyelocytes Percent 1 %
[2023-09-23 08:00] LABS: Platelet Estimate DECREASED (NORMAL); Platelet Morphology Comment NORMAL; RBC Morphology NORMAL
[2023-09-23 08:02] LABS: Hypochromasia 1+ (5-14) /OIF
[2023-09-23] MEDS: Cholecalciferol (Vitamin D3) 25 MCG TABLET PO (09:00)
[2023-09-23] MEDS: Metoprolol Succinate ER 50 MG TAB.ER.24H PO (09:00)
[2023-09-23] MEDS: oxyCODONE HCl ER 10 MG TAB.ER.12H PO ×2 (09:00→10:42)
[2023-09-23] MEDS: Multivitamin TABLET 1 TAB PO (09:00)
[2023-09-23] MEDS: dexAMETHasone sod phosphate 4 MG/ML VIAL IVPUSH ×2 (09:00→21:03)
[2023-09-23] MEDS: Lidocaine 4 % Patch ADH..PATCH 1 PATCH TRANSDERMA (09:01)
[2023-09-23 11:08] LABS: Glucose, Whole Blood 155 mg/dL (60-115)
--- NOTE | 2023-09-23 12:24 | P.PNIM_ITS ---
Subjective Subjective Date of Service: 09/23/23 Interval History: transfused 2u pRBCs c/o severe frontal skull pain ongoing R-sided facial numbness, some difficulty swallowing as well now Review of Systems Review of Systems: Yes all other systems are reviewed and are negative Physical Exam 2 Vital Signs: Vital Signs: Last Vital Signs Temp 97.1 F 09/23/23 11:15 Pulse 88 09/23/23 11:15 Resp 18 09/23/23 11:15 BP 150/73 H 09/23/23 11:15 Pulse Ox 94 09/23/23 11:15 O2 Del Method Room Air 09/23/23 11:15 BMI result Body Mass Index 23.8 Gen: in no acute distress, weak/pale HEENT: sclera slightly icteric, moist mucus membranes Neck: supple Lungs: clear to auscultation bilaterally Heart: regular rate and rhythm, no murmurs Abd: soft, non-tender, non-distended Ext: no edema Skin: warm/well-perfused Neuro: alert and oriented x3, no focal findings Psych: appropriate affect Objective Data Active Medications Acetaminophen (Acetaminophen 325 Mg Tablet) 650 mg PO Q6H PRN PRN Reason: Pain, Mild (Pain Scale 1-3), fever or headache Last Admin: 09/23/23 05:39 Dose: 650 mg Documented By: RASHAAD Calcium Carbonate (Calcium Carbonate 750 Mg Tab.Chew) 750 mg PO Q4H PRN PRN Reason: Heartburn Dexamethasone Sodium Phosphate (Dexamethasone Sod Phosphate 4 Mg/Ml Vial) 4 mg IVPUSH BID [facility] Last Admin: 09/23/23 09:00 Dose: 4 mg Documented By: FRANKY Docusate Sodium (Docusate Sodium 100 Mg/10 Ml Liquid) 100 mg PO BID [facility] Last Admin: 09/23/23 09:54 Dose: Not Given Documented By: FRANKY Non-Admin Reason: Patient Refused Glucose (Glucose Gel 15 Gm Gel..Gram.) 15 gm PO Q15M PRN; Protocol PRN Reason: per Hypoglycemia Standing Ord. Hydromorphone HCl (Hydromorphone Hcl 0.5 Mg/0.5 Ml Syringe) 0.5 mg IVPUSH Q2H PRN; Protocol PRN Reason: Pain, Severe (Pain Scale 7-10) Hydroxyzine HCl (Hydroxyzine Hcl 50 Mg Tablet) 50 mg PO Q6H PRN PRN Reason: anxiety/restlessness Last Admin: 09/19/23 18:10 Dose: 50 mg Documented By: ELLI Dextrose (D10) 250 mls @ 750 mls/hr IV Q15M PRN; Protocol PRN Reason: per Hypoglycemia Standing Ord. Insulin Human Lispro (Insulin Lispro 100 Unit/Ml 3 Ml Vial) 0 unit SUBCUT QIDACHS [facility]; Protocol Last Admin: 09/23/23 11:56 Dose: Not Given Documented By: FRANKY Non-Admin Reason: NPO Lidocaine (Lidocaine 4 % Patch Adh..Patch) 1 patch TRANSDERMA DAILY [facility]; Protocol Last Admin: 09/23/23 09:01 Dose: 1 patch Documented By: FRANKY Magnesium Hydroxide (Milk Of Magnesia 30 Ml Oral.Susp) 30 ml PO BID PRN PRN Reason: Constipation Melatonin (Melatonin 3 Mg Tablet) 6 mg PO BEDTIME PRN PRN Reason: Insomnia Metoprolol Succinate (Metoprolol Succinate Er 50 Mg Tab.Er.24h) 50 mg PO DAILY [facility]; Protocol Last Admin: 09/23/23 09:00 Dose: 50 mg Documented By: FRANKY Multivitamins/Vitamin C (Multivitamin Tablet) 1 tab PO DAILY [facility] Last Admin: 09/23/23 09:00 Dose: 1 tab Documented By: FRANKY Omeprazole (Omeprazole 20 Mg Capsule.Dr) 20 mg PO DAILY@0630 [facility] Last Admin: 09/23/23 05:35 Dose: 20 mg Documented By: RASHAAD Ondansetron HCl (Ondansetron Hcl 4 Mg/2 Ml Vial) 4 mg IVPUSH Q8H PRN PRN Reason: Nausea and Vomiting Last Admin: 09/22/23 05:37 Dose: 4 mg Documented By: JOSELIN-ERIKA Oxycodone HCl (Oxycodone Hcl Immed Release 5 Mg Tablet) 10 mg PO Q4H PRN PRN Reason: Pain, Moderate(Pain Scale 4-6) Last Admin: 09/23/23 05:39 Dose: 10 mg Documented By: RASHAAD Oxycodone HCl (Oxycodone Hcl Er 10 Mg Tab.Er.12h) 20 mg PO BID [facility] Polyethylene Glycol (Polyethylene Glycol 3350 17 Gm Powd.Pack) 17 gm PO DAILY [facility] Last Admin: 09/23/23 10:19 Dose: Not Given Documented By: FRANKY Non-Admin Reason: Patient Refused Senna (Senna [place]net[place] Extract Oral Syrup 15 Ml Syrup) 15 ml PO BEDTIME [facility] Last Admin: 09/22/23 21:03 Dose: Not Given Documented By: RASHAAD Non-Admin Reason: Patient Refused Sodium Chloride (0.9 % Sodium Chloride Flush 3 Ml Syringe) 3 ml IVFLUSH QSHIFT [facility] Last Admin: 09/23/23 07:26 Dose: 3 ml Documented By: FRANKY Vitamin D (Cholecalciferol (Vitamin D3) 25 Mcg Tablet) 25 mcg PO DAILY [facility] Last Admin: 09/23/23 09:00 Dose: 25 mcg Documented By: FRANKY Labs 09/23/23 06:29 09/22/23 09:03 Labs: Laboratory Results - last 24 hr 09/22/23 09/22/23 09/22/23 13:01 16:23 20:58 MCV MCH MCHC RDW Plt Count MPV Absolute Nucleated RBC Nucleated RBC % (auto) Neutrophils % (Manual) Band Neutrophils % Lymphocytes % (Manual) Monocytes % (Manual) Metamyelocytes % Myelocytes % Promyelocytes % Abs Neuts (Manual) Lymphocytes # (Manual) Metamyelocytes # Myelocytes # Nucleated RBCs Platelet Estimate Plt Morphology Comment RBC Morphology Hypochromasia POC Glucose 269 H 144 H Blood Type O Negative Antibody Screen NEGATIVE Crossmatch See Detail 09/23/23 09/23/23 09/23/23 06:29 07:11 11:01 MCV 82.0 MCH 28.6 MCHC 34.9 RDW 16.3 H Plt Count 32 L MPV 8.4 L Absolute Nucleated RBC 0.190 H Nucleated RBC % (auto) 12.1 H Neutrophils % (Manual) 75 H Band Neutrophils % 0 L Lymphocytes % (Manual) 13 L Monocytes % (Manual) 1 L Metamyelocytes % 5 Myelocytes % 5 Promyelocytes % 1 Abs Neuts (Manual) 1.2 L Lymphocytes # (Manual) 0.2 L Metamyelocytes # 0.1 Myelocytes # 0.1 Nucleated RBCs 11 H Platelet Estimate DECREASED Plt Morphology Comment NORMAL RBC Morphology NORMAL Hypochromasia 1+ (5-14) POC Glucose 147 H 155 H Blood Type Antibody Screen Crossmatch Assessment and Plan (1) Cancer, metastatic to bone: Status: Acute (2) Facial paresthesia: Status: Acute (3) Drug induced liver disease: Status: Acute (4) Thrombocytopenia: Status: Acute (5) Abnormal LFTs: Status: Acute Plan d6 73yo F with recent [place] [facility] [place] for 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- Case discussed with [facility] Neurosurgery Tho GIANG regarding biopsy; he reviewed films and recommend outpatient follow-up with repeat CT in 1 week - Bone scan, showed features highly suspicious for near diffuse osseous metastasis involving skull vault, thoracic cage, upper extremities, both upper extremities, entire cervical, thoracic and lumbosacral spine and pelvis - Repeat MRI with 3-D MPRAGE/GUSMAN postcontrast sequences showed diffuse osseous metastasis as well as left anterior temporal lobe enhancement. - She has a history of breast cancer, though remote [25 yr ago]. Concern of metastatic disease related to it. Case discussed with Dr. Vasquez and placed on IV dexamethasone 4 mg b.i.d. CA 27.29 pending. Bone marrow biopsy to be done today by IR GIULIANA-associated pain - Will increase Oxycontin, continue prn oxycodone, increase prn Dilaudid IV pancytopenia - Transfused 2u pRBCs with good response; continue to monitor CBCd daily. Likely due to marrow replacement by tumor DILI - was discharged on prednisone taper, currently on dexamethasone as above DM2, A1c 6.9 - MTF discontinued due to DILI; correction-dose lispro for now HLD - statin on hold due to DILI urinary retention - on Parker VTE ppx - SCDs, d/c'ed LMWH due to thrombocytopenia dispo - TBD In my clinical judgment, the patient requires continued inpatient hospitalization for the following reasons: pancytopenia, marrow biopsy Total time managing care of this patient today: 50 minutes. Quality Stroke Does the patient have a stroke diagnosis?: No VTE Prior VTE?: No VTE Risk Level:: Medical - moderate - high VTE Device Contraindication: Treatment Not Indicated VTE Drug Contraindication: N/A - Med Ordered
--- NOTE | 2023-09-23 12:56 | PC.NURSE ---
transferred via bed for bone biopsy
[2023-09-23 14:31] LABS: Bone Marrow SEE SEPARATE REPORT
[2023-09-23 16:00] LABS: Glucose, Whole Blood 143 mg/dL (60-115)
--- NOTE | 2023-09-23 17:11 | MHC.SLORD ---
Speech Language Pathology Order Status: GAME ADVISOR consultation received for dysphagia. Patient to be seen tomorrow AM by GAME ADVISOR.
[2023-09-23 20:56] LABS: Glucose, Whole Blood 132 mg/dL (60-115)
[2023-09-23] MEDS: Docusate Sodium 100 MG/10 ML LIQUID PO (21:02)
[2023-09-23] MEDS: oxyCODONE HCl ER 10 MG TAB.ER.12H 20 MG PO (21:03)
[2023-09-24] VITALS: BP 157/82; PULSE 104; RESP 16; TEMP 36.8; O2SAT 95
[2023-09-24] MEDS: 0.9 % Sodium Chloride Flush 3 ML SYRINGE IVFLUSH ×4 (00:19→23:56)
[2023-09-24] MEDS: HYDROmorphone HCl 0.5 MG/0.5 ML SYRINGE IVPUSH ×2 (00:22→07:36)
[2023-09-24 04:00] VITALS: BP 129/75; PULSE 103; RESP 16; TEMP 36.6; O2SAT 94
[2023-09-24 07:33] LABS: Glucose, Whole Blood 190 mg/dL (60-115)
[2023-09-24 07:35] LABS: Baso%MD 1.4 %; Hematocrit 33.2 % (37.0-47.0); Hemoglobin 11.5 g/dl (12.0-16.0); IG%MD 16.9 %; Lymph%MD 11.6 %; Mean Corpuscular HGB Conc 34.6 g/dl (31.0-35.0); Mean Corpuscular Hemoglobin 28.7 pg (27.0-33.0); Mean Corpuscular Volume 82.8 fL (80.0-98.0); Mean Platelet Volume 8.6 fL (9.4-12.3); Mono%MD 10.1 %; NRBC Pct Auto 8.7 /100WBC (0.0-0.2); Platelet Count 21 X10*3/uL (160-400); Red Blood Count 4.01 X10*6/uL (4.20-5.50); Red Cell Distribution Width 16.9 % (11.0-16.0); White Blood Count 2.1 X10*3/uL (4.8-10.8)
[2023-09-24] MEDS: Insulin Lispro 100 UNIT/ML 3 ML VIAL SUBCUT ×2 (07:42→12:17)
[2023-09-24 07:58] VITALS: BP 148/72; PULSE 109; RESP 20; TEMP 36.7; O2SAT 95
--- NOTE | 2023-09-24 08:10 | PM.HEMONCPN ---
Medical Summary - Medical Summary Date of Service: 09/24/23 Chief complaint: Headache Primary Care Provider: Li Whitehead MD Medical Summary: She was recently admitted to the hospital with a 2 weeks stay, between 09/02 and 09/17/23 She was noted to have elevated LFTs. Pancytopenia. Liver biopsy revealed: Acute hepatitis with cholestasis. She was sent home on a steroid trial. Discharge summary: Leukocytosis of 11.0. Normocytic anemia with h/h 10.3/29.9%. Renal fx normal, lytes normal except for Na 134, Ca 10.7. Glucose 133. Initial trop 17.3, repeat 24.8. EKG shows sinus tach, no acute ischemic changes. Head CT negative for acute intracranial abnormality. CTA chest negative for PE, shows pleural parenchymal irregularity along the anterior/anterolateral aspect of the ELISA with punctate calcifications with bilateral pulmonary nodules. Patient was admitted to telemetry where monitor failed to demonstrate a pathological rhythms. Seen by Cardiology and a cardiac event was ruled out. Patient was seen in consultation by Gastroenterology and Hematology for abnormal liver function tests and pancytopenia. Autoimmune panel was drawn and was unremarkable. Ultimately patient underwent a liver biopsy which demonstrated medication induced hepatitis. She was started on steroids and over the next several days liver function tests improved as well as pancytopenia. Case was discussed with GI who recommended prednisone taper; 40 mg daily x7 days followed by 35 mg daily x7 days followed by 30 mg daily x7 days followed by 25 mg daily x7 days followed by 20 mg daily x7 days followed by 15 mg daily x7 days followed by 10 mg daily x7 days followed by 5 mg daily x7 days. Patient needs CBC and chemistry profile every 3 days until both pancytopenia and liver function tests have normalized. PAST MEDICAL HISTORY: Patient was treated for left breast cancer 24 years ago. She underwent lumpectomy followed by radiation therapy and 5 years of tamoxifen. She did not receive chemotherapy. She underwent hysterectomy around the same time. FAMILY HISTORY: This no family history of breast cancer or any other cancers that she can recall. No family history of diabetes either. 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 She is . Has 3 children. She used to smoke a pack a day quit few weeks ago. Denies alcohol. Interval History Interval history: Jaclyn Looney is a 73 year old lady admitted with right facial droop. She complains she developed a severe headache, rarely slept in this a.m. She then developed numbness and tingling around her nose that progressed to her cheek and down to her chin. She was noted to have a right facial droop. She was transferred to [facility] for evaluation MRI of the brain revealed: Diffuse enhancement involving the osseous structures, including the calvarium, skull base, maxillofacial bones, and imaged cervical spinal column again concerning for widespread osseous metastatic disease. Thin reactive pachymeningeal enhancement along the bilateral cerebral convexities. 1.5 x 1.3 cm nodular enhancement within the anterior aspect of the left middle cranial fossa appears to be both intra and extra-axial with involvement of the left temporal pole as evidenced by lack of clearly delineated CSF plane on prior MRI. This is contiguous with osseous metastatic disease eroding the inferior aspect of the left sphenoid wing and a portion of the the posterolateral wall of the left orbit, better illustrated on prior CT. There is minimal extraosseous disease noted within the posterolateral left extraconal orbit abutting the posterior aspect of the left lateral rectus muscle (image 11,series 3) and possible extraosseous extension into the left temporalis fossa involving the deep fibers of the left temporalis muscle. There may also be minimal infiltration along the roof of the left pterygomaxillary fissure. Pulsation artifact versus metastases within the left greater than right occipital lobes (images 11-13, series 3) and apparent enhancement versus artifact within the posterior fossa would be better evaluated on 3-D MPRAGE/GUSMAN postcontrast sequences. Please refer to separate brain MRI for discussion of additional findings. Multiple anatomic findings that raise the concern for widespread osseous metastatic disease. There is parenchymal edema localized within the left anterior temporal lobe that may represent intracranial invasion of a metastasis involving the greater sphenoid wing. CTA of head and neck revealed: 5. Multilevel cervical spondylosis and significant spinal canal stenosis as discussed above. Cannot exclude cord impingement at these levels. Consider MRI of the cervical spine for further assessment if clinically warranted. She complains of right-sided headache. No nausea or emesis. No fever or chills. She is doing about the same. She underwent bone marrow biopsy yesterday. [facility] Medical History: Medical History (Last Reviewed 09/17/23 @ 09:07 by Mayank Rockwell DO) Cancer of breast Chest pain Hyperlipidemia Irregular heart beat Kidney stone Type 2 diabetes mellitus with hyperglycemia, without long-term current use of insulin Functional capacity: bed bound Family History: Family History (Last Reviewed 09/17/23 @ 09:07 by Mayank Rockwell DO) Mother Tuberculosis Brother Myocardial infarction, Onset Age: 55 Skin cancer Father Skin cancer Surgical History: Surgical History (Last Reviewed 09/17/23 @ 09:07 by Mayank Rockwell DO) H/O colonoscopy History of lumpectomy of left breast History of surgery on arm Hx of thumb surgery S/P JUSTIN (total abdominal hysterectomy) Social History: Social History (Last Reviewed 09/17/23 @ 09:07 by Mayank Rockwell DO) Living Situation History: Household Members: Spouse Housing: House Do you presently have visiting nurse or other home services: No Alcohol History Details: 1. How often do you have a drink containing alcohol?: a. Never 3. How often do you have six or more drinks on one occasion?: a. Never AUDIT-C Alcohol total score: 0 Currently Displaying Signs/Symptoms of Alcohol Withdrawal: No Tobacco History: Patient Tobacco Use Status: Never used Tobacco Tobacco use type: Cigarette Smoked in Last 30 Days: No e-Cigarette/Vaping Use: Never Used Patient Interested in Nicotine Replacement: No Patient Given Instructions on How to Stop Smoking: No Second Hand Smoke Exposure: No Substance Use History: Use of substances other than those prescribed or required for medical reasons: No Currently Displaying Signs/Symptoms of Drug Intoxication Withdrawal: No Any prior treatment program specific to substance use: No Domestic Abuse History: Have you been hit, kicked, punched, or otherwise hurt by someone within the past year? If so, by whom?: No Do you feel safe in your current relationship?: Yes Is there a partner from a previous relationship who is making you feel unsafe now?: No Are you made to feel afraid or neglected: No Healthcare Practices: Church Healthcare Practices: Anabaptist Advance Directives: Advance Directives: No Advance Directives Information Provided: No Homicidal Assessment: Do you have a plan to hurt others: No Plan Nutrition Assessment: Recently lost weight without trying: Yes How much weight loss: 2-13 pounds Eating poorly because of decreased appetite: No Nutrition screen score: 3 Nutrition Risks: No Nutritional Risk Patient : No : No Poor oral hygiene: No Occupation Assessmet: service: No Current occupational status: retired Home Medications and Allergies Current Medications: Current Medications Acetaminophen (Acetaminophen 325 Mg Tablet) 650 mg PO Q6H PRN PRN Reason: Pain, Mild (Pain Scale 1-3), fever or headache Last Admin: 09/23/23 05:39 Dose: 650 mg Calcium Carbonate (Calcium Carbonate 750 Mg Tab.Chew) 750 mg PO Q4H PRN PRN Reason: Heartburn Dexamethasone Sodium Phosphate (Dexamethasone Sod Phosphate 4 Mg/Ml Vial) 4 mg IVPUSH BID [facility] Last Admin: 09/23/23 21:03 Dose: 4 mg Docusate Sodium (Docusate Sodium 100 Mg/10 Ml Liquid) 100 mg PO BID [facility] Last Admin: 09/23/23 21:02 Dose: 100 mg Glucose (Glucose Gel 15 Gm Gel..Gram.) 15 gm PO Q15M PRN; Protocol PRN Reason: per Hypoglycemia Standing Ord. Hydromorphone HCl (Hydromorphone Hcl 0.5 Mg/0.5 Ml Syringe) 0.5 mg IVPUSH Q2H PRN; Protocol PRN Reason: Pain, Severe (Pain Scale 7-10) Last Admin: 09/24/23 07:36 Dose: 0.5 mg Hydroxyzine HCl (Hydroxyzine Hcl 50 Mg Tablet) 50 mg PO Q6H PRN PRN Reason: anxiety/restlessness Last Admin: 09/19/23 18:10 Dose: 50 mg Dextrose (D10) 250 mls @ 750 mls/hr IV Q15M PRN; Protocol PRN Reason: per Hypoglycemia Standing Ord. Insulin Human Lispro (Insulin Lispro 100 Unit/Ml 3 Ml Vial) 0 unit SUBCUT QIDACHS [facility]; Protocol Last Admin: 09/24/23 07:42 Dose: 2 unit Lidocaine (Lidocaine 4 % Patch Adh..Patch) 1 patch TRANSDERMA DAILY [facility]; Protocol Last Admin: 09/23/23 09:01 Dose: 1 patch Magnesium Hydroxide (Milk Of Magnesia 30 Ml Oral.Susp) 30 ml PO BID PRN PRN Reason: Constipation Melatonin (Melatonin 3 Mg Tablet) 6 mg PO BEDTIME PRN PRN Reason: Insomnia Metoprolol Succinate (Metoprolol Succinate Er 50 Mg Tab.Er.24h) 50 mg PO DAILY [facility]; Protocol Last Admin: 09/23/23 09:00 Dose: 50 mg Multivitamins/Vitamin C (Multivitamin Tablet) 1 tab PO DAILY [facility] Last Admin: 09/23/23 09:00 Dose: 1 tab Omeprazole (Omeprazole 20 Mg Capsule.Dr) 20 mg PO DAILY@0630 [facility] Last Admin: 09/24/23 05:39 Dose: Not Given Ondansetron HCl (Ondansetron Hcl 4 Mg/2 Ml Vial) 4 mg IVPUSH Q8H PRN PRN Reason: Nausea and Vomiting Last Admin: 09/22/23 05:37 Dose: 4 mg Oxycodone HCl (Oxycodone Hcl Immed Release 5 Mg Tablet) 10 mg PO Q4H PRN PRN Reason: Pain, Moderate(Pain Scale 4-6) Last Admin: 09/23/23 05:39 Dose: 10 mg Oxycodone HCl (Oxycodone Hcl Er 10 Mg Tab.Er.12h) 20 mg PO BID [facility] Last Admin: 09/23/23 21:03 Dose: 20 mg Polyethylene Glycol (Polyethylene Glycol 3350 17 Gm Powd.Pack) 17 gm PO DAILY [facility] Last Admin: 09/23/23 10:19 Dose: Not Given Senna (Senna [place] Extract Oral Syrup 15 Ml Syrup) 15 ml PO BEDTIME [facility] Last Admin: 09/23/23 21:02 Dose: 15 ml Sodium Chloride (0.9 % Sodium Chloride Flush 3 Ml Syringe) [facility] Last Admin: 09/24/23 07:39 Dose: 3 ml Vitamin D (Cholecalciferol (Vitamin D3) 25 Mcg Tablet) 25 mcg PO DAILY [facility] Last Admin: 09/23/23 09:00 Dose: 25 mcg Home Medications ?Medication ?Instructions ?Recorded ?Confirmed ?Type metoprolol succinate 50 mg 50 mg PO DAILY 08/19/23 09/17/23 History tablet,extended release 24 hr cholecalciferol (vitamin D3) 25 25 mcg PO DAILY 08/31/23 09/17/23 History mcg (1,000 unit) tablet (Vitamin D3) multivitamin 1 tab PO DAILY 08/31/23 09/17/23 History omeprazole 20 mg capsule,delayed 20 mg PO DAILY@0630 09/17/23 09/17/23 History release prednisone 20 mg tablet 40 mg PO DAILY 09/17/23 09/17/23 History Allergies Allergy/AdvReac Type Severity Reaction Status Date / Time sulfamethoxazole Allergy Intermediate HIVES Verified 09/17/23 05:52 [From Bactrim] trimethoprim [From Bactrim] Allergy Intermediate HIVES Verified 09/17/23 05:52 amoxicillin [Amoxicillin] Allergy Mild RASH Verified 09/17/23 05:52 Sulfa (Sulfonamide Allergy Unknown Hives Verified 09/17/23 05:52 Antibiotics) Exam Vital signs: Vital Signs Temp 98.1 F 09/24/23 07:58 Pulse 109 H 09/24/23 07:58 Resp 20 09/24/23 07:58 BP 148/72 H 09/24/23 07:58 Pulse Ox 95 09/24/23 07:58 O2 Del Method Room Air 09/24/23 07:58 Intake & Output 09/23/23 09/24/23 09/24/23 18:59 06:59 18:59 Intake Total 240 / 240 0 / 240 Output Total 450 / 750 300 / 750 Balance -210 / -510 -300 / -510 Urine Output (Average ml/kg/hr) 0.56 0.37 Intake: Intake, Oral Amount 240 / 240 0 / 240 Output: Output, Urine Amount 450 / 750 300 / 750 Output, Stool Amount 0 / 0 Other: Meal Refused No NPO No Breakfast % Eaten 25% Dinner % Eaten 25% Number of Incontinent Voids 0 Number of Unmeasured Voids 0 Number of Bowel Movements 0 Urine F/C leone Urine Color Yellow Mamta Stool Incontinent Weight 66.9 kg BMI result Body Mass Index 23.8 - Constitutional Present: no acute distress, somnolent - Routine HEENT Exam Head: Present: atraumatic - Routine Neck Exam Present: full ROM - Routine Respiratory Exam Present: decreased breath sounds, wheezes - Routine Cardiovascular Exam Cardiovascular: Present: RRR - Routine Abdominal Exam Present: diminished bowel sounds - Routine Extremities Exam Present: tenderness - Detailed Neurological Exam: Coma Scale Eye Opening: Spontaneous (4) Data - Labs CBC & Chem 7: 09/25/23 06:45 09/25/23 06:45 - Imaging Radiologist's impression: ITS Impressions Head CT 09/17/23 05:51 IMPRESSION: No acute intracranial pathology. Chest X-Ray 09/17/23 06:38 IMPRESSION: No acute finding. Head/Neck CTA 09/17/23 07:36 IMPRESSION: 1. Partially calcified plaque at both carotid bulbs, with less than 50% diameter reduction stenosis of the proximal ICAs by NASCET criteria. 2. Short-segment moderate, nonflow-limiting stenosis of the supraclinoid left internal carotid artery. No intracranial arterial occlusion or other significant stenosis is identified. 3. Minimal chronic ischemic microangiopathy in the subcortical white matter of both frontal lobes. No acute territorial infarct. No pathologic intracranial enhancement. 4. Nonspecific subpleural opacity in the anterior left upper lobe, which could be inflammatory or post inflammatory in nature or less likely neoplastic. Recommend follow-up CT of the chest with contrast. 5. Multilevel cervical spondylosis and significant spinal canal stenosis as discussed above. Cannot exclude cord impingement at these levels. Consider MRI of the cervical spine for further assessment if clinically warranted. The [facility] staff will call to confirm receipt of this report with acknowledgement of the findings and any recommendations. Brain MRI 09/17/23 15:45 IMPRESSION: There are multiple anatomic findings that raise the concern for widespread osseous metastatic disease. There is parenchymal edema located within the left anterior temporal lobe that may represent intracranial invasion of a metastasis involving the left greater sphenoid wing. A dedicated postcontrast MRI of the brain can be obtained for better anatomic characterization of this finding. Otherwise no intracranial mass effect or hydrocephalus. No evidence of acute territorial infarct or hemorrhage. This critical result was discussed with Mayank Rockwell at 4:16 PM on 09/17/2023 and it was ascertained that the content and urgency of the report was understood at the time of direct communication. Brain MRI 09/17/23 18:49 FINDINGS/IMPRESSION: Diffuse enhancement involving the osseous structures, including the calvarium, skull base, maxillofacial bones, and imaged cervical spinal column again concerning for widespread osseous metastatic disease. Thin reactive pachymeningeal enhancement along the bilateral cerebral convexities. 1.5 x 1.3 cm nodular enhancement within the anterior aspect of the left middle cranial fossa appears to be both intra and extra-axial with involvement of the left temporal pole as evidenced by lack of clearly delineated CSF plane on prior MRI. This is contiguous with osseous metastatic disease eroding the inferior aspect of the left sphenoid wing and a portion of the the posterolateral wall of the left orbit, better illustrated on prior CT. There is minimal extraosseous disease noted within the posterolateral left extraconal orbit abutting the posterior aspect of the left lateral rectus muscle (image 11, series 3) and possible extraosseous extension into the left temporalis fossa involving the deep fibers of the left temporalis muscle. There may also be minimal infiltration along the roof of the left pterygomaxillary fissure. Pulsation artifact versus metastases within the left greater than right occipital lobes (images 11-13, series 3) and apparent enhancement versus artifact within the posterior fossa would be better evaluated on 3-D MPRAGE/GUSMAN postcontrast sequences. Please refer to separate brain MRI for discussion of additional findings. Brain MRI 09/19/23 10:50 IMPRESSION: There is diffuse dural thickening and enhancement most likely representing reactive changes in the setting of widespread osseous metastatic disease. There is also a focus of parenchymal enhancement involving the left anterior temporal lobe measuring approximately 1.7 cm in maximal transaxial dimension most likely representing direct intracranial extension of tumor. Otherwise no abnormal parenchymal enhancement visualized elsewhere within the intracranial compartment. No intracranial mass effect or hydrocephalus. Bone Scan Nuclear Medicine 09/19/23 12:20 IMPRESSION: Abnormal study showing features highly suspicious for near diffuse osseous metastasis. Assessment and Plan Patient Active problem list reviewed?: Yes (1) Pancytopenia Status: Acute Assessment and plan: 73-year-old lady with a remote history of left breast cancer, status post lumpectomy and radiation followed by 5 years of tamoxifen, treated at [facility] about 25 years ago. She presented in August with abnormal LFTs and worsening anemia. CT angiogram of chest was negative for pulmonary embolism. D-dimer is elevated. Ferritin another marker of inflammation is also high. LDH is over 1100. Normal vitamin B12 and folate levels. Peripheral smear evaluation shows no abnormal cells to suggest acute hematological process such as leukemia. She has had a colonoscopy in 2022 which showed benign polyps. She had CT abdomen/pelvis with contrast on 09/02/2023 which showed normal liver, spleen and pancreas. Mottled nephrogram suggestive of parenchymal renal disease or multifocal pyelonephritis, left renal calculi, status post hysterectomy. Patient has had liver biopsy on 09/08/2023. Preliminary report favors drug-induced hepatitis. She now presents with a right facial droop. MRI brain showed diffuse bony enhancement involving the osseous structure including calvarium, skull bone, maxillofacial bones and imaged cervical spinal column. Case discussed with [facility] GIANG regarding biopsy, he reviewed films and recommend outpatient follow-up with repeat CT in 1 week. Bone scan, showed features highly suspicious for near diffuse osseous metastasis involving skull vault, thoracic cage, upper extremities, entire cervical, thoracic and lumbosacral spine and pelvis. I reviewed bone scan as well as CT images with radiologist. There is no discrete focus of abnormality based on bone scan or CT scans for biopsy, random bone marrow biopsy however can be performed. Alternatively, biopsy of skull bone by Neurosurgery at [facility] can be performed. She underwent bone marrow aspiration/biopsy yesterday. Results awaited. 2. Worsening pancytopenia. Probably related to diffuse bone metastasis and liver disease. Transfuse PRBC to keep hemoglobin above 8 gram/dL. She continues to have worsening thrombocytopenia. Overall prognosis is poor. - Time Spent With Patient Time Spent with Patient (in minutes): 10
[2023-09-24 08:31] LABS: Band Neutrophils Percent 5 % (3-5); Lymphocytes Absolute Manual 0.2 X10*3/uL (1.2-4.9); Lymphocytes Percent Manual 11 % (20-40); Metamyelocytes Absolute 0.1 X10*3/uL; Metamyelocytes Percent 6 %; Monocytes Absolute Manual 0.1 X10*3/uL (0.1-1.2); Monocytes Percent Manual 3 % (2-11); Neutrophils Absolute Manual 1.6 X10*3/uL (2.0-8.3); Neutrophils Percent Manual 73 % (45-73); Nucleated Red Blood Cells 8 /100WBC (0-0); Promyelocytes Percent 2 %
[2023-09-24 08:40] LABS: Platelet Estimate DECREASED (NORMAL); Platelet Morphology Comment NORMAL; RBC Morphology NORMAL
[2023-09-24] MEDS: dexAMETHasone sod phosphate 4 MG/ML VIAL IVPUSH ×2 (08:44→20:02)
[2023-09-24] MEDS: oxyCODONE HCl ER 10 MG TAB.ER.12H 20 MG PO ×2 (08:44→20:01)
[2023-09-24] MEDS: Lidocaine 4 % Patch ADH..PATCH 1 PATCH TRANSDERMA (08:44)
[2023-09-24] MEDS: Metoprolol Succinate ER 50 MG TAB.ER.24H PO (08:55)
--- NOTE | 2023-09-24 10:24 | MHC.CM.PN ---
Per ROUNDS discussion, Patient is not yet medically cleared for dc (Blood counts dropping, needs BALCONY WORKER Eval, biopsy on Friday,09/26/2023);MD indicated he will be discussing dc plan with Patient's .CM will follow.
--- NOTE | 2023-09-24 10:50 | MHC.SL.SWA ---
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 Compensatory Strategies and Precautions to be Taken for Safe Swallow: Sitting Upright (90 deg) Small Bites and Sips Alternate Liquids/Solids Supervision While Eating and Drinking for Safe Swallow: Total Supervision (1:1) Recommendation for Speech: Outpatient Speech Therapy Inpatient Speech Therapy Comment: Recommend UPGRADE to PUREE solids and THIN liquids w/ pills whole/crushed in puree. Recommend liquids via cup d/t observed difficulty getting liquid from straw. Pt presents w/ oral phase dysphagia marked by characteristics including holding PO in mouth and not chewing solids prior to swallow attempt. Dysphagia may be secondary to mentation or ?mets. Ensure pt is seated upright for all PO. Recommend FULL supervision during meals & w/ any solids d/t behavior of holding food in mouth and some observed difficulty w/ mentation. Pt OK to drink liquids via cup sip w/o supervision. GAMING SURVEILLANCE OBSERVER to continue to follow to upgrade diet if/when warranted and determine need for further testing (i.e. instrumental). Tube Closing Machine Operator Clinican/Clinical Fellow: No Supervisory Statement: I have reviewed and agree with the student/clinical fellow's documentation: N/A Speech Language Pathologist: Tia Colon M.A., CCC-GAMING SURVEILLANCE OBSERVER
[2023-09-24 11:11] LABS: Glucose, Whole Blood 186 mg/dL (60-115)
[2023-09-24 11:54] VITALS: BP 144/65; PULSE 97; RESP 20; TEMP 36.4; O2SAT 95
[2023-09-24] MEDS: Multivitamin TABLET 1 TAB PO (12:06)
[2023-09-24] MEDS: Cholecalciferol (Vitamin D3) 25 MCG TABLET PO (12:06)
[2023-09-24] MEDS: Docusate Sodium 100 MG/10 ML LIQUID PO ×2 (12:06→20:02)
[2023-09-24] MEDS: polyethylene glycoL 3350 17 GM POWD.PACK PO (12:10)
--- NOTE | 2023-09-24 12:33 | P.PNIM_ITS ---
Subjective Subjective Date of Service: 09/24/23 Interval History: pain better controlled still having difficulty swallowing + R-sided facial numbness Review of Systems Review of Systems: Yes all other systems are reviewed and are negative Physical Exam 2 Vital Signs: Vital Signs: Last Vital Signs Temp 97.5 F 09/24/23 11:54 Pulse 97 09/24/23 11:54 Resp 20 09/24/23 11:54 BP 144/65 H 09/24/23 11:54 Pulse Ox 95 09/24/23 11:54 O2 Del Method Room Air 09/24/23 11:54 BMI result Body Mass Index 23.8 Gen: in no acute distress, weak/pale HEENT: sclera slightly icteric, moist mucus membranes Neck: supple Lungs: clear to auscultation bilaterally Heart: regular rate and rhythm, no murmurs Abd: soft, non-tender, non-distended Ext: no edema Skin: warm/well-perfused Neuro: alert and oriented x3, no focal findings Psych: appropriate affect Objective Data Active Medications Acetaminophen (Acetaminophen 325 Mg Tablet) 650 mg PO Q6H PRN PRN Reason: Pain, Mild (Pain Scale 1-3), fever or headache Last Admin: 09/23/23 05:39 Dose: 650 mg Documented By: RASHAAD Calcium Carbonate (Calcium Carbonate 750 Mg Tab.Chew) 750 mg PO Q4H PRN PRN Reason: Heartburn Dexamethasone Sodium Phosphate (Dexamethasone Sod Phosphate 4 Mg/Ml Vial) 4 mg IVPUSH BID [facility] Last Admin: 09/24/23 08:44 Dose: 4 mg Documented By: FRANKY Docusate Sodium (Docusate Sodium 100 Mg/10 Ml Liquid) 100 mg PO BID [facility] Last Admin: 09/24/23 12:06 Dose: 100 mg Documented By: FRANKY Glucose (Glucose Gel 15 Gm Gel..Gram.) 15 gm PO Q15M PRN; Protocol PRN Reason: per Hypoglycemia Standing Ord. Hydromorphone HCl (Hydromorphone Hcl 0.5 Mg/0.5 Ml Syringe) 0.5 mg IVPUSH Q2H PRN; Protocol PRN Reason: Pain, Severe (Pain Scale 7-10) Last Admin: 09/24/23 07:36 Dose: 0.5 mg Documented By: FRANKY Hydroxyzine HCl (Hydroxyzine Hcl 50 Mg Tablet) 50 mg PO Q6H PRN PRN Reason: anxiety/restlessness Last Admin: 09/19/23 18:10 Dose: 50 mg Documented By: ELLI Dextrose (D10) 250 mls @ 750 mls/hr IV Q15M PRN; Protocol PRN Reason: per Hypoglycemia Standing Ord. Insulin Human Lispro (Insulin Lispro 100 Unit/Ml 3 Ml Vial) 0 unit SUBCUT QIDACHS [facility]; Protocol Last Admin: 09/24/23 12:17 Dose: 2 unit Documented By: FRANKY Lidocaine (Lidocaine 4 % Patch Adh..Patch) 1 patch TRANSDERMA DAILY [facility]; Protocol Last Admin: 09/24/23 08:44 Dose: 1 patch Documented By: FRANKY Magnesium Hydroxide (Milk Of Magnesia 30 Ml Oral.Susp) 30 ml PO BID PRN PRN Reason: Constipation Melatonin (Melatonin 3 Mg Tablet) 6 mg PO BEDTIME PRN PRN Reason: Insomnia Metoprolol Succinate (Metoprolol Succinate Er 50 Mg Tab.Er.24h) 50 mg PO DAILY [facility]; Protocol Last Admin: 09/24/23 08:55 Dose: 50 mg Documented By: FRANKY Multivitamins/Vitamin C (Multivitamin Tablet) 1 tab PO DAILY [facility] Last Admin: 09/24/23 12:06 Dose: 1 tab Documented By: FRANKY Omeprazole (Omeprazole 20 Mg Capsule.Dr) 20 mg PO DAILY@0630 [facility] Last Admin: 09/24/23 05:39 Dose: Not Given Documented By: NANCY Non-Admin Reason: NPO Ondansetron HCl (Ondansetron Hcl 4 Mg/2 Ml Vial) 4 mg IVPUSH Q8H PRN PRN Reason: Nausea and Vomiting Last Admin: 09/22/23 05:37 Dose: 4 mg Documented By: DURGA Oxycodone HCl (Oxycodone Hcl Immed Release 5 Mg Tablet) 10 mg PO Q4H PRN PRN Reason: Pain, Moderate(Pain Scale 4-6) Last Admin: 09/23/23 05:39 Dose: 10 mg Documented By: RASHAAD Oxycodone HCl (Oxycodone Hcl Er 10 Mg Tab.Er.12h) 20 mg PO BID [facility] Last Admin: 09/24/23 08:44 Dose: 20 mg Documented By: FRANKY Polyethylene Glycol (Polyethylene Glycol 3350 17 Gm Powd.Pack) 17 gm PO DAILY [facility] Last Admin: 09/24/23 12:10 Dose: 17 gm Documented By: FRANKY Senna (Senna [place] Extract Oral Syrup 15 Ml Syrup) 15 ml PO BEDTIME [facility] Last Admin: 09/23/23 21:02 Dose: 15 ml Documented By: IQRA Sodium Chloride (0.9 % Sodium Chloride Flush 3 Ml Syringe) 3 ml IVFLUSH QSHIFT [facility] Last Admin: 09/24/23 07:39 Dose: 3 ml Documented By: FRANKY Vitamin D (Cholecalciferol (Vitamin D3) 25 Mcg Tablet) 25 mcg PO DAILY [facility] Last Admin: 09/24/23 12:06 Dose: 25 mcg Documented By: FRANKY Labs 09/24/23 06:32 09/22/23 09:03 Labs: Laboratory Results - last 24 hr 09/23/23 09/23/23 09/24/23 15:31 20:52 06:32 MCV 82.8 MCH 28.7 MCHC 34.6 RDW 16.9 H Plt Count 21 L D MPV 8.6 L Absolute Nucleated RBC 0.180 H Nucleated RBC % (auto) 8.7 H Neutrophils % (Manual) 73 Band Neutrophils % 5 Lymphocytes % (Manual) 11 L Monocytes % (Manual) 3 Metamyelocytes % 6 Promyelocytes % 2 Abs Neuts (Manual) 1.6 L Lymphocytes # (Manual) 0.2 L Monocytes # (Manual) 0.1 Metamyelocytes # 0.1 Nucleated RBCs 8 H Platelet Estimate DECREASED Plt Morphology Comment NORMAL RBC Morphology NORMAL POC Glucose 143 H 132 H 09/24/23 09/24/23 07:24 10:51 MCV MCH MCHC RDW Plt Count MPV Absolute Nucleated RBC Nucleated RBC % (auto) Neutrophils % (Manual) Band Neutrophils % Lymphocytes % (Manual) Monocytes % (Manual) Metamyelocytes % Promyelocytes % Abs Neuts (Manual) Lymphocytes # (Manual) Monocytes # (Manual) Metamyelocytes # Nucleated RBCs Platelet Estimate Plt Morphology Comment RBC Morphology POC Glucose 190 H 186 H Assessment and Plan (1) Cancer, metastatic to bone: Status: Acute (2) Facial paresthesia: Status: Acute (3) Drug induced liver disease: Status: Acute (4) Thrombocytopenia: Status: Acute (5) Abnormal LFTs: Status: Acute Plan d7 73yo F with recent admission to [facility] [place]30[place]16[place]23 for 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- Case discussed with [facility] Tho GIANG regarding biopsy; he reviewed films and recommend outpatient follow-up with repeat CT in 1 week - Bone scan, showed features highly suspicious for near diffuse osseous metastasis involving skull vault, thoracic cage, upper extremities, both upper extremities, entire cervical, thoracic and lumbosacral spine and pelvis - Repeat MRI with 3-D MPRAGE/GUSMAN postcontrast sequences showed diffuse osseous metastasis as well as left anterior temporal lobe enhancement. - She has a history of breast cancer, though remote [25 yr ago]. Concern of metastatic disease related to it. Case discussed with Dr. Vasquez and placed on IV dexamethasone 4 mg b.i.d. CA 27.29 pending. Bone marrow biopsy done 09/23/23, awaiting results. 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 Pain seems to be better controlled today. pancytopenia - Transfused 2u pRBCs with good response; continue to monitor CBCd daily. Likely due to marrow replacement by tumor. If platelets drop <20 may need platelets as well. DILI - was discharged on prednisone taper, currently on dexamethasone as above DM2, A1c 6.9 - MTF discontinued due to DILI; correction-dose lispro for now HLD - statin on hold due to DILI urinary retention - voiding trial VTE ppx - SCDs, d/c'ed LMWH due to thrombocytopenia dispo - TBD In my clinical judgment, the patient requires continued inpatient hospitalization for the following reasons: pancytopenia, marrow biopsy Discussed with pt and her Chris. Discussed options of palliative treatment as well as hospice. They are awaiting tissue diagnosis before making any further decisions. Total time managing care of this patient today: 50 minutes. Quality Stroke Does the patient have a stroke diagnosis?: No VTE Prior VTE?: No VTE Risk Level:: Medical - moderate - high VTE Device Contraindication: Treatment Not Indicated VTE Drug Contraindication: N/A - Med Ordered
[2023-09-24 15:11] VITALS: BP 155/77; PULSE 101; RESP 20; TEMP 36.7; O2SAT 97
[2023-09-24 16:26] LABS: Glucose, Whole Blood 132 mg/dL (60-115)
[2023-09-24 19:35] VITALS: BP 139/76; PULSE 120; RESP 17; TEMP 36.8; O2SAT 96
[2023-09-24 20:41] LABS: Glucose, Whole Blood 119 mg/dL (60-115)
[2023-09-25] VITALS (9 sets, daily range): BP systolic 118–156; BP diastolic 61–74; PULSE 98–115; RESP 16–22; TEMP 36.3–36.8; O2SAT 95–97
--- NOTE | 2023-09-25 05:31 | PC.NURSE ---
Patient's leone removed yesterday at 1300. Patient unable to urinate after removal. Provider notified , ordering str cath if bladder scan in >400 ml. Bladder scanned for 420 ml[address] str catheterized for 200 ml. Will continue to monitor.
[2023-09-25] MEDS: Omeprazole 20 MG CAPSULE.DR PO (06:01)
[2023-09-25 07:23] LABS: Glucose, Whole Blood 107 mg/dL (60-115)
[2023-09-25] MEDS: ondansetron HCL 4 MG/2 ML VIAL IVPUSH (07:33)
[2023-09-25] MEDS: 0.9 % Sodium Chloride Flush 3 ML SYRINGE IVFLUSH (07:35)
[2023-09-25 07:39] LABS: Baso%MD 0.9 %; Hematocrit 34.6 % (37.0-47.0); Hemoglobin 12.1 g/dl (12.0-16.0); IG%MD 7.4 %; Lymph%MD 11.3 %; Mean Corpuscular Hemoglobin 28.9 pg (27.0-33.0); Mean Corpuscular Volume 82.8 fL (80.0-98.0); Neut%MD 70.4 %; Red Blood Count 4.18 X10*6/uL (4.20-5.50); Red Cell Distribution Width 17.4 % (11.0-16.0)
[2023-09-25 07:48] LABS: WBC ABN SCTR FOR CBC 1
[2023-09-25 08:02] LABS: Alanine Aminotransferase 117 U/L (0-31); Albumin Level 2.4 g/dL (3.5-5.0); Alkaline Phosphatase 1041 U/L (39-117); Anion Gap 23 (12-20); Aspartate Amino Transferase 164 U/L (5-31); Bilirubin Total 8.8 mg/dL (0.0-1.0); Blood Urea Nitrogen 63 mg/dL (9-16); Calcium 9.8 mg/dL (8.4-10.2); Carbon Dioxide 22 mmol/L (22-29); Chloride 95 mmol/L (96-108); Creatinine Clr Calc Pharmacy 45.1; Estimated Glomerular Filt Rate 51; Glucose Random 100 mg/dL (60-115); Potassium 5.6 mmol/L (3.3-5.1); Sodium 134 mmol/L (135-145); Total Protein 5.6 g/dL (6.5-8.0)
[2023-09-25 08:06] LABS: Platelet Count 18 X10*3/uL (160-400)
[2023-09-25 08:19] LABS: Band Neutrophils Percent 13 % (3-5); Eosinophils Percent Manual 1 % (0-4); Lymphocytes Percent Manual 12 % (20-40); Metamyelocytes Percent 1 %; Monocytes Percent Manual 5 % (2-11); Neutrophils Percent Manual 68 % (45-73); Nucleated Red Blood Cells 5 /100WBC (0-0)
[2023-09-25 08:20] LABS: RBC Morphology NOTED
[2023-09-25 08:25] LABS: Polychromasia 1+ (0-2) /OIF
[2023-09-25 08:26] LABS: Dohle Bodies PRESENT; Large Platelet PRESENT; Platelet Estimate DECREASED (NORMAL); Platelet Morphology Comment NOTED; Toxic Granulation PRESENT
[2023-09-25 08:27] LABS: Lymphocytes Absolute Manual 0.3 X10*3/uL (1.2-4.9); Monocytes Absolute Manual 0.1 X10*3/uL (0.1-1.2); Neutrophils Absolute Manual 1.9 X10*3/uL (2.0-8.3); White Blood Count 2.3 X10*3/uL (4.8-10.8)
[2023-09-25] MEDS: dexAMETHasone sod phosphate 4 MG/ML VIAL IVPUSH ×2 (09:20→21:22)
[2023-09-25] MEDS: oxyCODONE HCl ER 10 MG TAB.ER.12H 20 MG PO ×2 (09:20→22:56)
[2023-09-25] MEDS: Cholecalciferol (Vitamin D3) 25 MCG TABLET PO (09:20)
[2023-09-25] MEDS: Docusate Sodium 100 MG/10 ML LIQUID PO ×2 (09:20→22:59)
[2023-09-25] MEDS: Metoprolol Succinate ER 50 MG TAB.ER.24H PO (09:21)
[2023-09-25] MEDS: polyethylene glycoL 3350 17 GM POWD.PACK PO (09:21)
[2023-09-25] MEDS: Multivitamin TABLET 1 TAB PO (09:21)
[2023-09-25] MEDS: Lidocaine 4 % Patch ADH..PATCH 1 PATCH TRANSDERMA (09:21)
--- NOTE | 2023-09-25 09:45 | P.PNIM_ITS ---
Subjective Subjective Date of Service: 09/25/23 Interval History: c/o bony skull pain R-sided facial numbness appears somewhat confused [stated she would drink out of the emesis bag] Review of Systems Review of Systems: Yes all other systems are reviewed and are negative Physical Exam 2 Vital Signs: Vital Signs: Last Vital Signs Temp 98.3 F 09/25/23 08:00 Pulse 115 H 09/25/23 08:00 Resp 20 09/25/23 08:00 BP 130/68 09/25/23 08:00 Pulse Ox 96 09/25/23 08:00 O2 Del Method Room Air 09/25/23 08:00 BMI result Body Mass Index 23.8 Gen: in no acute distress, weak/pale HEENT: sclera slightly icteric, moist mucus membranes Neck: supple Lungs: clear to auscultation bilaterally Heart: regular rate and rhythm, no murmurs Abd: soft, non-tender, non-distended Ext: no edema Skin: warm/well-perfused Neuro: alert but somewhat confused Psych: appropriate affect Objective Data Active Medications Acetaminophen (Acetaminophen 325 Mg Tablet) 650 mg PO Q6H PRN PRN Reason: Pain, Mild (Pain Scale 1-3), fever or headache Last Admin: 09/23/23 05:39 Dose: 650 mg Documented By: RASHAAD Calcium Carbonate (Calcium Carbonate 750 Mg Tab.Chew) 750 mg PO Q4H PRN PRN Reason: Heartburn Dexamethasone Sodium Phosphate (Dexamethasone Sod Phosphate 4 Mg/Ml Vial) 4 mg IVPUSH BID [facility] Last Admin: 09/25/23 09:20 Dose: 4 mg Documented By: MARINA Docusate Sodium (Docusate Sodium 100 Mg/10 Ml Liquid) 100 mg PO BID [facility] Last Admin: 09/25/23 09:20 Dose: 100 mg Documented By: MARINA Glucose (Glucose Gel 15 Gm Gel..Gram.) 15 gm PO Q15M PRN; Protocol PRN Reason: per Hypoglycemia Standing Ord. Hydromorphone HCl (Hydromorphone Hcl 0.5 Mg/0.5 Ml Syringe) 0.5 mg IVPUSH Q2H PRN; Protocol PRN Reason: Pain, Severe (Pain Scale 7-10) Last Admin: 09/24/23 07:36 Dose: 0.5 mg Documented By: FRANKY Hydroxyzine HCl (Hydroxyzine Hcl 50 Mg Tablet) 50 mg PO Q6H PRN PRN Reason: anxiety/restlessness Last Admin: 09/19/23 18:10 Dose: 50 mg Documented By: ELLI Dextrose (D10) 250 mls @ 750 mls/hr IV Q15M PRN; Protocol PRN Reason: per Hypoglycemia Standing Ord. Insulin Human Lispro (Insulin Lispro 100 Unit/Ml 3 Ml Vial) 0 unit SUBCUT QIDACHS [facility]; Protocol Last Admin: 09/25/23 07:46 Dose: Not Given Documented By: MARINA Non-Admin Reason: No Insulin Coverage Lidocaine (Lidocaine 4 % Patch Adh..Patch) 1 patch TRANSDERMA DAILY [facility]; Protocol Last Admin: 09/25/23 09:21 Dose: 1 patch Documented By: MARINA Magnesium Hydroxide (Milk Of Magnesia 30 Ml Oral.Susp) 30 ml PO BID PRN PRN Reason: Constipation Melatonin (Melatonin 3 Mg Tablet) 6 mg PO BEDTIME PRN PRN Reason: Insomnia Metoprolol Succinate (Metoprolol Succinate Er 50 Mg Tab.Er.24h) 50 mg PO DAILY [facility]; Protocol Last Admin: 09/25/23 09:21 Dose: 50 mg Documented By: MARINA Multivitamins/Vitamin C (Multivitamin Tablet) 1 tab PO DAILY [facility] Last Admin: 09/25/23 09:21 Dose: 1 tab Documented By: MARINA Omeprazole (Omeprazole 20 Mg Capsule.Dr) 20 mg PO DAILY@0630 [facility] Last Admin: 09/25/23 06:01 Dose: 20 mg Documented By: RASHAAD Ondansetron HCl (Ondansetron Hcl 4 Mg/2 Ml Vial) 4 mg IVPUSH Q8H PRN PRN Reason: Nausea and Vomiting Last Admin: 09/25/23 07:33 Dose: 4 mg Documented By: MARINA Oxycodone HCl (Oxycodone Hcl Immed Release 5 Mg Tablet) 10 mg PO Q4H PRN PRN Reason: Pain, Moderate(Pain Scale 4-6) Last Admin: 09/23/23 05:39 Dose: 10 mg Documented By: RASHAAD Oxycodone HCl (Oxycodone Hcl Er 10 Mg Tab.Er.12h) 20 mg PO BID [facility] Last Admin: 09/25/23 09:20 Dose: 20 mg Documented By: MARINA Polyethylene Glycol (Polyethylene Glycol 3350 17 Gm Powd.Pack) 17 gm PO DAILY [facility] Last Admin: 09/25/23 09:21 Dose: 17 gm Documented By: MARINA Senna (Senna [place] Extract Oral Syrup 15 Ml Syrup) 15 ml PO BEDTIME [facility] Last Admin: 09/24/23 20:06 Dose: 15 ml Documented By: RASHAAD Sodium Chloride (0.9 % Sodium Chloride Flush 3 Ml Syringe) 3 ml IVFLUSH QSHIFT [facility] Last Admin: 09/25/23 07:35 Dose: 3 ml Documented By: MARINA Vitamin D (Cholecalciferol (Vitamin D3) 25 Mcg Tablet) 25 mcg PO DAILY [facility] Last Admin: 09/25/23 09:20 Dose: 25 mcg Documented By: MARINA Labs 09/25/23 06:45 09/25/23 06:45 Labs: Laboratory Results - last 24 hr 09/24/23 09/24/23 09/24/23 10:51 16:17 20:17 MCV MCH MCHC RDW Plt Count MPV Absolute Nucleated RBC Nucleated RBC % (auto) Neutrophils % (Manual) Band Neutrophils % Lymphocytes % (Manual) Monocytes % (Manual) Eosinophils % (Manual) Metamyelocytes % Abs Neuts (Manual) Lymphocytes # (Manual) Monocytes # (Manual) Nucleated RBCs Toxic Granulation Dohle Bodies Platelet Estimate Large Platelets Plt Morphology Comment RBC Morphology Polychromasia Anion Gap Estim Creat Clear Calc Estimated GFR POC Glucose 186 H 132 H 119 H Random Glucose Calcium Total Bilirubin AST ALT Alkaline Phosphatase Total Protein Albumin 09/25/23 09/25/23 06:45 07:11 MCV 82.8 MCH 28.9 MCHC 35.0 RDW 17.4 H Plt Count 18 L* MPV Not Reportable Absolute Nucleated RBC 0.160 H Nucleated RBC % (auto) 7.0 H Neutrophils % (Manual) 68 Band Neutrophils % 13 H Lymphocytes % (Manual) 12 L Monocytes % (Manual) 5 Eosinophils % (Manual) 1 Metamyelocytes % 1 Abs Neuts (Manual) 1.9 L Lymphocytes # (Manual) 0.3 L Monocytes # (Manual) 0.1 Nucleated RBCs 5 H Toxic Granulation PRESENT Dohle Bodies PRESENT Platelet Estimate DECREASED Large Platelets PRESENT Plt Morphology Comment NOTED RBC Morphology NOTED Polychromasia 1+ (0-2) Anion Gap 23 H Estim Creat Clear Calc 45.1 Estimated GFR 51 POC Glucose 107 Random Glucose 100 Calcium 9.8 Total Bilirubin 8.8 H AST 164 H ALT 117 H Alkaline Phosphatase 1041 H Total Protein 5.6 L Albumin 2.4 L Assessment and Plan (1) Cancer, metastatic to bone: Status: Acute (2) Facial paresthesia: Status: Acute (3) Drug induced liver disease: Status: Acute (4) Thrombocytopenia: Status: Acute (5) Abnormal LFTs: Status: Acute Plan d8 73yo F with recent admission [place] [facility] [place]16/23 for 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 [Case discussed with [facility] Tho GIANG regarding biopsy; he reviewed films and recommend outpatient follow-up with repeat CT in 1 week] - Bone scan showed features highly suspicious for near diffuse osseous metastasis involving skull vault, thoracic cage, upper extremities, both upper extremities, entire cervical, thoracic and lumbosacral spine and pelvis - Repeat MRI with 3-D MPRAGE/GUSMAN postcontrast sequences showed diffuse osseous metastasis as well as left anterior temporal lobe enhancement. - She has a history of breast cancer, though remote [25 yr ago]. Concern of metastatic disease related to it. Case discussed with Dr. Vasquez and placed on IV dexamethasone 4 mg b.i.d. CA 27.29 pending. Bone marrow biopsy done 09/23/23, awaiting results. - Ultimately will likely need radiation treatment for the L temporal lobe intracranial tumor extension. CA-associated pain - OxyContin, prn oxycodone, prn Dilaudid IV dysphagia - [employer]STATE AGENCY PRINCIPAL consulted; NDD1 solids/thin liquids pancytopenia - Likely due to marrow replacement by tumor. - Transfused 2u pRBCs with good response - Plts less than 20 today; will transfuse 1 units and continue to monitor CBCd daily obstructive jaundice vs DILI - check Dbili + US abd, monitor LFTs daily - was discharged on prednisone taper, currently on dexamethasone as above DM2, A1c 6.9 - MTF discontinued due to DILI; correction-dose lispro for now HLD - statin on hold due to DILI urinary retention - voiding trial VTE ppx - SCDs, d/c'ed LMWH due to thrombocytopenia dispo - TBD In my clinical judgment, the patient requires continued inpatient hospitalization for the following reasons: pancytopenia,worsening LFTs, may need inpt radition treatment Total time managing care of this patient today: 55 minutes. Quality Stroke Does the patient have a stroke diagnosis?: No VTE Prior VTE?: No VTE Risk Level:: Medical - moderate - high VTE Device Contraindication: Treatment Not Indicated VTE Drug Contraindication: N/A - Med Ordered
[2023-09-25 10:29] LABS: Bilirubin Direct 6.9 mg/dL (0.0-0.5)
[2023-09-25] MEDS: 0.9 % Sodium Chloride 1,000 ML 100 ML IVCONT (10:36)
--- NOTE | 2023-09-25 10:46 | MHC.SL.SWA ---
Speech Pathologist Impression: Risk of aspiration, oropharyngeal dysphagia Risk of Aspiration Due to: Weak Cough Weak Voice Dysphasia Diet Status: No change at this time Liquid Consistency and Strategies for Safe Swallow: Liquid Intake Recommendation: Thin Liquid Intake Strategies: Small Sips No Straws Solid Food Consistency: Dietary Recommendations: Pureed (NDD1) Additional Modifications to Solid Foods: Pt presents w/ oral phase dysphagia marked by characteristics including holding PO in mouth and not chewing solids prior to swallow attempt. CONTINUE on PUREE solids (NDD1) and THIN liquids w/ pills whole or crushed in puree per patient's tolerance/preference. Ensure patient is sitting upright for PO intake, taking small bites/sips, alternating between solids/liquids, and drinking by cup (observed difficulty getting liquid from straw). Provide FULL supervision during PO intake d/t patient's risk of aspiration and choking secondary to confusion. Oral Medication Intake: Crushed with Puree Please contact the pharmacy regarding appropriate crushable or liquid drug formulations that are available whenever modified delivery is recommended. Compensatory Strategies and Precautions to be Taken for Safe Swallow: Sitting Upright (90 deg) No Straw Small Bites and Sips Alternate Liquids/Solids Rate of Ingestion Change Oral Check Supervision While Eating and Drinking for Safe Swallow: Total Supervision (1:1) Swallowing Recommended Treatments: Compens. Strategy Educat. Recommendation for Speech: Outpatient Speech Therapy Inpatient Speech Therapy Senior Civil Engineer Clinican/Clinical Fellow: No Supervisory Statement: I have reviewed and agree with the student/clinical fellow's documentation: N/A Speech Language Pathologist: Jackelyn Vergara M.A., CCC-[employer]ICATOR
[2023-09-25 11:06] LABS: Glucose, Whole Blood 118 mg/dL (60-115)
[2023-09-25] MEDS: Sodium Zirconium Cyclosilicate 5 GM POWD.PACK PO (12:22)
[2023-09-25] MEDS: HYDROmorphone HCl 0.5 MG/0.5 ML SYRINGE IVPUSH (12:29)
[2023-09-25 14:20] LABS: D Dimer High Sensitivity 3007 NG/ML
[2023-09-25 14:22] LABS: INTERNATIONAL NORM RATIO 2.3 (0.9-1.1); Partial Thromboplastin Time 29.1 SEC (26.0-36.8); Prothrombin Time 28.1 SEC (11.1-13.3)
[2023-09-25 14:23] LABS: Fibrinogen > 700 MG/DL (259-690)
[2023-09-25 17:16] LABS: Glucose, Whole Blood 126 mg/dL (60-115)
[2023-09-25 20:05] LABS: Glucose, Whole Blood 113 mg/dL (60-115)
[2023-09-26] VITALS (13 sets, daily range): BP systolic 77–139; BP diastolic 38–73; PULSE 104–122; RESP 16–20; TEMP 36.1–37; O2SAT 94–97; BMI 23.8
--- NOTE | 2023-09-26 | ECG_ITS ---
Test Reason : heart rhythem Blood Pressure : / mmHG Vent. Rate : 116 BPM Atrial Rate : 116 BPM P-R Int : 130 ms QRS Dur : 080 ms QT Int : 334 ms P-R-T Axes : 041 002 046 degrees QTc Int : 464 ms Sinus tachycardia Low voltage QRS Borderline ECG When compared with ECG of 17-SEP-2023 05:50, Nonspecific T wave abnormality no longer evident in Anterior leads Referred By: Zach Ramires Electronically Signed By:RAFAEL PASTOR
[2023-09-26] MEDS: HYDROmorphone HCl 0.5 MG/0.5 ML SYRINGE IVPUSH (01:00)
[2023-09-26] MEDS: 0.9 % Sodium Chloride 1,000 ML 100 ML IVCONT (02:58)
[2023-09-26] MEDS: oxyCODONE HCl Immed Release 5 MG TABLET 10 MG PO (05:28)
[2023-09-26] MEDS: Omeprazole 20 MG CAPSULE.DR PO (05:29)
[2023-09-26 07:07] LABS: Alanine Aminotransferase 124 U/L (0-31); Albumin Level 2.4 g/dL (3.5-5.0); Alkaline Phosphatase 1048 U/L (39-117); Anion Gap 21 (12-20); Aspartate Amino Transferase 192 U/L (5-31); Bilirubin Direct 6.8 mg/dL (0.0-0.5); Bilirubin Total 8.7 mg/dL (0.0-1.0); Blood Urea Nitrogen 81 mg/dL (9-16); Calcium 9.1 mg/dL (8.4-10.2); Carbon Dioxide 22 mmol/L (22-29); Chloride 98 mmol/L (96-108); Creatinine Clr Calc Pharmacy 33.2; Estimated Glomerular Filt Rate 36; Glucose Random 96 mg/dL (60-115); Potassium 5.3 mmol/L (3.3-5.1); Sodium 136 mmol/L (135-145); Total Protein 5.5 g/dL (6.5-8.0)
[2023-09-26 07:23] LABS: Baso%MD 0.8 %; Hematocrit 34.6 % (37.0-47.0); Hemoglobin 11.7 g/dl (12.0-16.0); IG%MD 6.9 %; Lymph%MD 12.5 %; Mean Corpuscular HGB Conc 33.8 g/dl (31.0-35.0); Mean Corpuscular Hemoglobin 28.2 pg (27.0-33.0); Mean Corpuscular Volume 83.4 fL (80.0-98.0); Mono%MD 7.7 %; Neut%MD 72.1 %; Red Blood Count 4.15 X10*6/uL (4.20-5.50); Red Cell Distribution Width 17.9 % (11.0-16.0)
[2023-09-26 07:51] LABS: WBC ABN SCTR FOR CBC 1; White Blood Count 2.5 X10*3/uL (4.8-10.8)
[2023-09-26 08:00] LABS: Platelet Count 18 X10*3/uL (160-400)
[2023-09-26 08:15] LABS: C Reactive Protein 30.75 mg/dL (< or = 0.50)
[2023-09-26 08:20] LABS: Atypical Lymph Absolute Manual 0.1 x10*3/uL; Atypical Lymphs Percent Manual 3 % (0-6); Band Neutrophils Percent 6 % (3-5); Lymphocytes Absolute Manual 0.2 X10*3/uL (1.2-4.9); Lymphocytes Percent Manual 9 % (20-40); Metamyelocytes Absolute 0.1 X10*3/uL; Metamyelocytes Percent 4 %; Myelocytes Percent 1 %; Neutrophils Absolute Manual 2.1 X10*3/uL (2.0-8.3); Neutrophils Percent Manual 77 % (45-73); Nucleated Red Blood Cells 2 /100WBC (0-0)
[2023-09-26 08:23] LABS: Burr Cells 1+ (0-2) /OIF; RBC Morphology NOTED
[2023-09-26 08:24] LABS: Large Platelet PRESENT; Platelet Estimate DECREASED (NORMAL); Platelet Morphology Comment NOTED; Polychromasia 1+ (0-2) /OIF
[2023-09-26 08:25] LABS: Glucose, Whole Blood 89 mg/dL (60-115)
[2023-09-26] MEDS: Cholecalciferol (Vitamin D3) 25 MCG TABLET PO (08:33)
[2023-09-26] MEDS: Metoprolol Succinate ER 50 MG TAB.ER.24H PO (08:33)
[2023-09-26] MEDS: Docusate Sodium 100 MG/10 ML LIQUID PO (08:34)
[2023-09-26] MEDS: Lidocaine 4 % Patch ADH..PATCH 1 PATCH TRANSDERMA (08:34)
[2023-09-26] MEDS: Multivitamin TABLET 1 TAB PO (08:34)
[2023-09-26] MEDS: oxyCODONE HCl ER 10 MG TAB.ER.12H 20 MG PO (08:34)
[2023-09-26] MEDS: 0.9 % Sodium Chloride Flush 3 ML SYRINGE IVFLUSH ×3 (08:35→15:57)
[2023-09-26] MEDS: Sodium Zirconium Cyclosilicate 5 GM POWD.PACK PO (08:35)
[2023-09-26] MEDS: polyethylene glycoL 3350 17 GM POWD.PACK PO (08:35)
[2023-09-26] MEDS: dexAMETHasone sod phosphate 4 MG/ML VIAL IVPUSH ×2 (08:35→20:37)
[2023-09-26 08:38] LABS: Procalcitonin 1.83 ng/mL
[2023-09-26] MEDS: levoFLOXacin/D5W 750 MG/150 ML PIGGYBACK 100 MG IV (08:50)
--- NOTE | 2023-09-26 09:27 | MHC.SL.SWA ---
Speech Pathologist Impression: Risk of Aspiration Due to: Weak Cough Weak Voice Dysphasia Diet Status: Recommend patient continue on current diet of Puree with Thin Liquids, pills crushed in puree, 1-1 feeding. Liquid Consistency and Strategies for Safe Swallow: Liquid Intake Recommendation: Thin Liquid Intake Strategies: Small Sips No Straws Solid Food Consistency: Dietary Recommendations: Pureed (NDD1) Additional Modifications to Solid Foods: Provide 1-1 assistance with meals, calm, but positive/encouraging affect. Patient may benefit from hand over hand assistance with drinking from cup or taking food with utensils, to assist with orientation to eating/drinking. Patient refuses food, but benefits from consistently/persistently offering. If refusing, take a break from meal, re-attempt at a later time(Items may need to be removed from tray). Patient may benefit from smaller more frequent meals, given behavior. Oral Medication Intake: Crushed with Puree Please contact the pharmacy regarding appropriate crushable or liquid drug formulations that are available whenever modified delivery is recommended. Compensatory Strategies and Precautions to be Taken for Safe Swallow: Sitting Upright (90 deg) No Straw Small Bites and Sips Alternate Liquids/Solids Rate of Ingestion Change Oral Check Supervision While Eating and Drinking for Safe Swallow: Total Assistance (1:1) Foods to Avoid: Swallowing Recommended Treatments: Compens. Strategy Educat. Recommendation for Speech: Outpatient Speech Therapy Inpatient Speech Therapy Comment: Patient was attempted to be seen at Breakfast. At onset of visit, RN was attempting to administer medication with patient resisting and refusing. COMMODITY LEAD adjusted the bed to 90 Degrees and turned on lights in room, then attempted to assist patient with drinking required fluids (dissolved potassium and Colace in liquid). Patient initially took sip from straw after a delay and repeated cuing, and swallowed with no difficulty., however had a surprised look when liquid was in her mouth. Patient then took straw in mouth several times but did not initiate sucking liquid through it. COMMODITY LEAD then attempted to give a cup sip, with patient clenching lips and teeth. COMMODITY LEAD then tried with tsp, with patient periodically sipping from the spoon, but alternately clenching mouth and refusing. With verbal encouragement, patient eventually took cup full of liquid, with some spilling from mouth when refusing. COMMODITY LEAD presented patient with a tsp of pureed Telugu toast from breakfast tray, however patient again clenched teeth and lips in refusal. No further trials were attempted. Nutritional shake was removed from tray to be attempted later, RN advised. Recommend patient continue on current diet of Puree with Thin Liquids, pills crushed in puree, 1-1 feeding. If patient is refusing to eat, re-attempt at a later time. Patient would benefit from smaller, more frequent meals, given behavioral issues leading to FTT. Frequency/Duration: Date Range for Service Req: Timeline to reassess: Syrup Maker Clinican/Clinical Fellow: No Supervisory Statement: I have reviewed and agree with the student/clinical fellow's documentation: N/A Speech Language Pathologist: Akua Henry M.A., CCC-COMMODITY LEAD
--- NOTE | 2023-09-26 10:29 | MHC.CM.PN ---
Per Rounds discussion, MD is meeting with Patient and family today around 2:30 PM to discuss plan of care (? transfer to [facility] for further CA treatment vs home with Hospice, for example); CM will follow.
[2023-09-26 11:12] LABS: Glucose, Whole Blood 123 mg/dL (60-115)
[2023-09-26] MEDS: Lactated Ringers 1,000 ML 500 ML IVCONT ×2 (11:16→14:08)
[2023-09-26] MEDS: ondansetron HCL 4 MG/2 ML VIAL IVPUSH (11:54)
[2023-09-26] MEDS: oxyCODONE HCl Immed Release 5 MG TABLET PO (12:20)
[2023-09-26] MEDS: 0.9 % Sodium Chloride 1,000 ML 125 ML IVCONT (14:10)
[2023-09-26 14:22] LABS: Ammonia 70 umol/L (13-55)
[2023-09-26 14:59] LABS: Lactate Dehydrogenase 2123 U/L (122-220); Uric Acid 10.6 mg/dL (2.4-5.7)
--- NOTE | 2023-09-26 15:47 | PM.HEMONCPN ---
Medical Summary - Medical Summary Date of Service: 09/26/23 Chief complaint: Altered mental status Primary Care Provider: Li Whtiehead MD Medical Summary: She was recently admitted to the hospital with a 2 weeks stay, between 09/02 and 09/17/23 She was noted to have elevated LFTs. Pancytopenia. Liver biopsy revealed: Acute hepatitis with cholestasis. She was sent home on a steroid trial. Discharge summary: Leukocytosis of 11.0. Normocytic anemia with h/h 10.3/29.9%. Renal fx normal, lytes normal except for Na 134, Ca 10.7. Glucose 133. Initial trop 17.3, repeat 24.8. EKG shows sinus tach, no acute ischemic changes. Head CT negative for acute intracranial abnormality. CTA chest negative for PE, shows pleural parenchymal irregularity along the anterior/anterolateral aspect of the ELISA with punctate calcifications with bilateral pulmonary nodules. Patient was admitted to telemetry where monitor failed to demonstrate a pathological rhythms. Seen by Cardiology and a cardiac event was ruled out. Patient was seen in consultation by Gastroenterology and Hematology for abnormal liver function tests and pancytopenia. Autoimmune panel was drawn and was unremarkable. Ultimately patient underwent a liver biopsy which demonstrated medication induced hepatitis. She was started on steroids and over the next several days liver function tests improved as well as pancytopenia. Case was discussed with GI who recommended prednisone taper; 40 mg daily x7 days followed by 35 mg daily x7 days followed by 30 mg daily x7 days followed by 25 mg daily x7 days followed by 20 mg daily x7 days followed by 15 mg daily x7 days followed by 10 mg daily x7 days followed by 5 mg daily x7 days. Patient needs CBC and chemistry profile every 3 days until both pancytopenia and liver function tests have normalized. PAST MEDICAL HISTORY: Patient was treated for left breast cancer 24 years ago. She underwent lumpectomy followed by radiation therapy and 5 years of tamoxifen. She did not receive chemotherapy. She underwent hysterectomy around the same time. MRI of the brain revealed: Diffuse enhancement involving the osseous structures, including the calvarium, skull base, maxillofacial bones, and imaged cervical spinal column again concerning for widespread osseous metastatic disease. Thin reactive pachymeningeal enhancement along the bilateral cerebral convexities. 1.5 x 1.3 cm nodular enhancement within the anterior aspect of the left middle cranial fossa appears to be both intra and extra-axial with involvement of the left temporal pole as evidenced by lack of clearly delineated CSF plane on prior MRI. This is contiguous with osseous metastatic disease eroding the inferior aspect of the left sphenoid wing and a portion of the the posterolateral wall of the left orbit, better illustrated on prior CT. There is minimal extraosseous disease noted within the posterolateral left extraconal orbit abutting the posterior aspect of the left lateral rectus muscle (image 11,series 3) and possible extraosseous extension into the left temporalis fossa involving the deep fibers of the left temporalis muscle. There may also be minimal infiltration along the roof of the left pterygomaxillary fissure. Pulsation artifact versus metastases within the left greater than right occipital lobes (images 11-13, series 3) and apparent enhancement versus artifact within the posterior fossa would be better evaluated on 3-D MPRAGE/GUSMAN postcontrast sequences. Please refer to separate brain MRI for discussion of additional findings. Multiple anatomic findings that raise the concern for widespread osseous metastatic disease. There is parenchymal edema localized within the left anterior temporal lobe that may represent intracranial invasion of a metastasis involving the greater sphenoid wing. Interval History Interval history: Patient was noted to have altered mental status yesterday. Repeat imaging was performed. Patient was seen at the bedside today in the presence of hospitalist Dr. Ramires as well as patient's and daughter. Review of Systems - Constitutional Reports as per [facility] Medical History: Medical History (Last Reviewed 09/17/23 @ 09:07 by Mayank Rockwell DO) Cancer of breast Chest pain Hyperlipidemia Irregular heart beat Kidney stone Type 2 diabetes mellitus with hyperglycemia, without long-term current use of insulin Functional capacity: bed bound Family History: Family History (Last Reviewed 09/17/23 @ 09:07 by Mayank Rockwell DO) Mother Tuberculosis Brother Myocardial infarction, Onset Age: 55 Skin cancer Father Skin cancer Surgical History: Surgical History (Last Reviewed 09/17/23 @ 09:07 by Mayank Rockwell DO) H/O colonoscopy History of lumpectomy of left breast History of surgery on arm Hx of thumb surgery S/P JUSTIN (total abdominal hysterectomy) Social History: Social History (Last Reviewed 09/17/23 @ 09:07 by Mayank Rockwell DO) Living Situation History: Household Members: Spouse Housing: House Do you presently have visiting nurse or other home services: No Alcohol History Details: 1. How often do you have a drink containing alcohol?: a. Never 3. How often do you have six or more drinks on one occasion?: a. Never AUDIT-C Alcohol total score: 0 Currently Displaying Signs/Symptoms of Alcohol Withdrawal: No Tobacco History: Patient Tobacco Use Status: Never used Tobacco Tobacco use type: Cigarette Smoked in Last 30 Days: No e-Cigarette/Vaping Use: Never Used Patient Interested in Nicotine Replacement: No Patient Given Instructions on How to Stop Smoking: No Second Hand Smoke Exposure: No Substance Use History: Use of substances other than those prescribed or required for medical reasons: No Currently Displaying Signs/Symptoms of Drug Intoxication Withdrawal: No Any prior treatment program specific to substance use: No Domestic Abuse History: Have you been hit, kicked, punched, or otherwise hurt by someone within the past year? If so, by whom?: No Do you feel safe in your current relationship?: Yes Is there a partner from a previous relationship who is making you feel unsafe now?: No Are you made to feel afraid or neglected: No Healthcare Practices: Shinto Healthcare Practices: Orthodoxy Advance Directives: Advance Directives: No Advance Directives Information Provided: No Homicidal Assessment: Do you have a plan to hurt others: No Plan Nutrition Assessment: Recently lost weight without trying: Yes How much weight loss: 2-13 pounds Eating poorly because of decreased appetite: No Nutrition screen score: 3 Nutrition Risks: No Nutritional Risk Patient : No : No Poor oral hygiene: No Occupation Assessmet: service: No Current occupational status: retired Home Medications and Allergies Current Medications: Current Medications Acetaminophen (Acetaminophen 325 Mg Tablet) 650 mg PO Q6H PRN PRN Reason: Pain, Mild (Pain Scale 1-3), fever or headache Last Admin: 09/23/23 05:39 Dose: 650 mg Dexamethasone Sodium Phosphate (Dexamethasone Sod Phosphate 4 Mg/Ml Vial) 4 mg IVPUSH Q6H [facility] Last Admin: 09/26/23 15:45 Dose: Not Given Glucose (Glucose Gel 15 Gm Gel..Gram.) 15 gm PO Q15M PRN; Protocol PRN Reason: per Hypoglycemia Standing Ord. Hydromorphone HCl (Hydromorphone Hcl 0.5 Mg/0.5 Ml Syringe) 0.25 mg IVPUSH Q2H PRN; Protocol PRN Reason: Pain, Severe (Pain Scale 7-10) Dextrose (D10) 250 mls @ 750 mls/hr IV Q15M PRN; Protocol PRN Reason: per Hypoglycemia Standing Ord. Sodium Chloride (Ns) 1,000 mls @ 125 mls/hr IVCONT .Q8H [facility] Last Admin: 09/26/23 14:10 Dose: 125 mls/hr Levofloxacin (Levaquin) 750 mg in 150 mls @ 100 mls/hr IV Q48H [facility] Last Infusion: 09/26/23 10:20 Dose: Infused Sodium Chloride (Ns) 1,000 mls @ 999 mls/hr IVCONT .Q1H1M [facility] Stop: 09/26/23 16:30 Last Admin: 09/26/23 15:44 Dose: Not Given Insulin Human Lispro (Insulin Lispro 100 Unit/Ml 3 Ml Vial) 0 unit SUBCUT QIDACHS [facility]; Protocol Last Admin: 09/26/23 11:14 Dose: Not Given Lactulose (Lactulose 20 Gm/30 Ml Solution) 20 gm PO TID [facility] Lidocaine (Lidocaine 4 % Patch Adh..Patch) 1 patch TRANSDERMA DAILY [facility]; Protocol Last Admin: 09/26/23 08:34 Dose: 1 patch Metoprolol Tartrate (Metoprolol Tartrate 5 Mg/5 Ml Vial) 2.5 mg IVPUSH Q6H [facility]; Protocol Multivitamins/Vitamin C (Multivitamin Tablet) 1 tab PO DAILY [facility] Last Admin: 09/26/23 08:34 Dose: 1 tab Ondansetron HCl (Ondansetron Hcl 4 Mg/2 Ml Vial) 4 mg IVPUSH Q8H PRN PRN Reason: Nausea and Vomiting Last Admin: 09/26/23 11:54 Dose: 4 mg Oxycodone HCl (Oxycodone Hcl Immed Release 5 Mg Tablet) 5 mg PO Q4H PRN PRN Reason: Pain, Moderate(Pain Scale 4-6) Last Admin: 09/26/23 12:20 Dose: 5 mg Pantoprazole Sodium (Pantoprazole Sodium 40 Mg/10 Ml Vial) 40 mg IVPUSH DAILY@0630 [facility] Sodium Chloride (0.9 % Sodium Chloride Flush 3 Ml Syringe) 3 ml IVFLUSH QSHIFT [facility] Last Admin: 09/26/23 08:35 Dose: 3 ml Vitamin D (Cholecalciferol (Vitamin D3) 25 Mcg Tablet) 25 mcg PO DAILY JORGE Last Admin: 09/26/23 08:33 Dose: 25 mcg Home Medications ?Medication ?Instructions ?Recorded ?Confirmed ?Type metoprolol succinate 50 mg 50 mg PO DAILY 08/19/23 09/17/23 History tablet,extended release 24 hr cholecalciferol (vitamin D3) 25 25 mcg PO DAILY 08/31/23 09/17/23 History mcg (1,000 unit) tablet (Vitamin D3) multivitamin 1 tab PO DAILY 08/31/23 09/17/23 History omeprazole 20 mg capsule,delayed 20 mg PO DAILY@0630 09/17/23 09/17/23 History release prednisone 20 mg tablet 40 mg PO DAILY 09/17/23 09/17/23 History Allergies Allergy/AdvReac Type Severity Reaction Status Date / Time sulfamethoxazole Allergy Intermediate HIVES Verified 09/17/23 05:52 [From Bactrim] trimethoprim [From Bactrim] Allergy Intermediate HIVES Verified 09/17/23 05:52 amoxicillin [Amoxicillin] Allergy Mild RASH Verified 09/17/23 05:52 Sulfa (Sulfonamide Allergy Unknown Hives Verified 09/17/23 05:52 Antibiotics) Exam Vital signs: Vital Signs Temp 97.3 F 09/26/23 14:15 Pulse 116 H 09/26/23 15:43 Resp 20 09/26/23 15:43 BP 129/73 09/26/23 15:43 Pulse Ox 94 09/26/23 15:43 O2 Del Method Room Air 09/26/23 15:43 Intake & Output 09/25/23 09/26/23 09/26/23 18:59 06:59 18:59 Intake Total 825.333 / 1467.000 641.667 / 8659.334 3654.167 / 2336.167 Output Total 600 / 600 Balance 825.333 / 867.000 41.667 / 788.852 6604.167 / 2336.167 Urine Output (Average ml/kg/hr) 0.75 0.75 Intake: Intake, Oral Amount 120 / 120 Intake (Blood Product) Amount 247 / 247 277 / 277 Plt Aph Pas Pathreduced(E8341) 247 / 247 Unit [id number] Plt Aph Pas Pathreduced(E8342) 277 / 277 Unit [id number] Intake, IV Amount 458.333 / 1100.000 641.667 / 3073.506 3658.167 / 2059.167 0.9 % Sodium Chloride 100 ml @ 100 / 100 100 mls/hr IV ONCE ONE Rx#: [id number] levoFLOXacin/D5W 750 mg In 150 150 / 150 ml @ 100 mls/hr IV Q48H JORGE Rx# :[id number] 0.9 % Sodium Chloride 1,000 ml 358.333 / 1000.000 641.667 / 1000.000 909.167 / 909.167 @ 125 mls/hr IVCONT .Q8H JORGE Rx #:[id number] Lactated Ringers 1,000 ml @ 500 1000 / 1000 mls/hr IVCONT .Q2H JORGE Rx#: [id number] Output: Output, Urine Amount 600 / 600 Output, Post Void Residual 0 / 0 Amount Other: Breakfast % Eaten refused Lunch % Eaten refused Eating (Feeding) Ability 1:1 Feed Urine PURWICK Weight 66.9 kg BMI result Body Mass Index 23.8 - Constitutional Present: no acute distress, chronically ill appearing, somnolent - Routine HEENT Exam Head: Present: atraumatic Eye: Present: scleral icterus - Routine Neck Exam Present: full ROM - Routine Respiratory Exam Present: decreased breath sounds, wheezes - Routine Cardiovascular Exam Cardiovascular: Present: RRR - Routine Abdominal Exam Present: diminished bowel sounds - Routine Extremities Exam Present: tenderness - Detailed Neurological Exam: Coma Scale Eye Opening: Spontaneous (4) Data - Labs CBC & Chem 7: 09/26/23 06:12 09/26/23 06:12 - Imaging Radiologist's impression: ITS Impressions Head CT 09/17/23 05:51 IMPRESSION: No acute intracranial pathology. Chest X-Ray 09/17/23 06:38 IMPRESSION: No acute finding. Head/Neck CTA 09/17/23 07:36 IMPRESSION: 1. Partially calcified plaque at both carotid bulbs, with less than 50% diameter reduction stenosis of the proximal ICAs by NASCET criteria. 2. Short-segment moderate, nonflow-limiting stenosis of the supraclinoid left internal carotid artery. No intracranial arterial occlusion or other significant stenosis is identified. 3. Minimal chronic ischemic microangiopathy in the subcortical white matter of both frontal lobes. No acute territorial infarct. No pathologic intracranial enhancement. 4. Nonspecific subpleural opacity in the anterior left upper lobe, which could be inflammatory or post inflammatory in nature or less likely neoplastic. Recommend follow-up CT of the chest with contrast. 5. Multilevel cervical spondylosis and significant spinal canal stenosis as discussed above. Cannot exclude cord impingement at these levels. Consider MRI of the cervical spine for further assessment if clinically warranted. The [facility] staff will call to confirm receipt of this report with acknowledgement of the findings and any recommendations. Brain MRI 09/17/23 15:45 IMPRESSION: There are multiple anatomic findings that raise the concern for widespread osseous metastatic disease. There is parenchymal edema located within the left anterior temporal lobe that may represent intracranial invasion of a metastasis involving the left greater sphenoid wing. A dedicated postcontrast MRI of the brain can be obtained for better anatomic characterization of this finding. Otherwise no intracranial mass effect or hydrocephalus. No evidence of acute territorial infarct or hemorrhage. This critical result was discussed with Mayank Rockwell at 4:16 PM on 09/17/2023 and it was ascertained that the content and urgency of the report was understood at the time of direct communication. Brain MRI 09/17/23 18:49 FINDINGS/IMPRESSION: Diffuse enhancement involving the osseous structures, including the calvarium, skull base, maxillofacial bones, and imaged cervical spinal column again concerning for widespread osseous metastatic disease. Thin reactive pachymeningeal enhancement along the bilateral cerebral convexities. 1.5 x 1.3 cm nodular enhancement within the anterior aspect of the left middle cranial fossa appears to be both intra and extra-axial with involvement of the left temporal pole as evidenced by lack of clearly delineated CSF plane on prior MRI. This is contiguous with osseous metastatic disease eroding the inferior aspect of the left sphenoid wing and a portion of the the posterolateral wall of the left orbit, better illustrated on prior CT. There is minimal extraosseous disease noted within the posterolateral left extraconal orbit abutting the posterior aspect of the left lateral rectus muscle (image 11, series 3) and possible extraosseous extension into the left temporalis fossa involving the deep fibers of the left temporalis muscle. There may also be minimal infiltration along the roof of the left pterygomaxillary fissure. Pulsation artifact versus metastases within the left greater than right occipital lobes (images 11-13, series 3) and apparent enhancement versus artifact within the posterior fossa would be better evaluated on 3-D MPRAGE/GUSMAN postcontrast sequences. Please refer to separate brain MRI for discussion of additional findings. Brain MRI 09/19/23 10:50 IMPRESSION: There is diffuse dural thickening and enhancement most likely representing reactive changes in the setting of widespread osseous metastatic disease. There is also a focus of parenchymal enhancement involving the left anterior temporal lobe measuring approximately 1.7 cm in maximal transaxial dimension most likely representing direct intracranial extension of tumor. Otherwise no abnormal parenchymal enhancement visualized elsewhere within the intracranial compartment. No intracranial mass effect or hydrocephalus. Bone Scan Nuclear Medicine 09/19/23 12:20 IMPRESSION: Abnormal study showing features highly suspicious for near diffuse osseous metastasis. Abdomen Ultrasound 09/25/23 10:57 IMPRESSION: 1. Trace sludge within the gallbladder. Gallbladder wall is mildly thickened though may be due to under distention. No radha stones to suggest cholecystitis. 2. Trace free fluid. Abdomen/Pelvis CT 09/25/23 16:13 IMPRESSION: 1. Bilateral pyelonephritis. Small stone in the left UVJ. 2. Single air bubble at the dome of the urinary bladder, correlate with recent instrumentation or infection. 3. Gallbladder polyp versus chronic wall thickening in the fundus of the gallbladder. 4. 0.3 cm nodule in the right middle lobe and pleural thickening in the left lower lobe associated with calcifications of pleura. 5. Degenerative changes in lower lumbar spine. Fleischner guidelines were followed. Head CT 09/25/23 16:13 IMPRESSION: 1. No evidence of acute intracranial hemorrhage or edematous territorial infarction Assessment and Plan Patient Active problem list reviewed?: Yes (1) Pancytopenia Status: Acute Assessment and plan: 73-year-old lady with a remote history of left breast cancer, status post lumpectomy and radiation followed by 5 years of tamoxifen, treated at [facility] about 25 years ago. She presented in August with abnormal LFTs and worsening anemia. CT angiogram of chest was negative for pulmonary embolism. D-dimer is elevated. Ferritin another marker of inflammation is also high. LDH is over 1100. Normal vitamin B12 and folate levels. Peripheral smear evaluation shows no abnormal cells to suggest acute hematological process such as leukemia. She has had a colonoscopy in 2022 which showed benign polyps. She had CT abdomen/pelvis with contrast on 09/02/2023 which showed normal liver, spleen and pancreas. Mottled nephrogram suggestive of parenchymal renal disease or multifocal pyelonephritis, left renal calculi, status post hysterectomy. Patient has had liver biopsy on 09/08/2023. Preliminary report favored drug-induced hepatitis. She now presents with a right facial droop. MRI brain showed diffuse bony enhancement involving the osseous structure including calvarium, skull bone, maxillofacial bones and imaged cervical spinal column. Case discussed with [facility] GI[facility] regarding biopsy, he reviewed films and recommend outpatient follow-up with repeat CT in 1 week. Bone scan, showed features highly suspicious for near diffuse osseous metastasis involving skull vault, thoracic cage, upper extremities, entire cervical, thoracic and lumbosacral spine and pelvis. I reviewed bone scan as well as CT images with radiologist. There is no discrete focus of abnormality based on bone scan or CT scans for biopsy. She underwent bone marrow aspiration/biopsy 09/23/2023. Biopsy reviewed with pathologist, there is no normal elements, infiltrative process or abnormal cells noted. However bone marrow is very abnormal, necrotic with loss of normal architecture and precursor cells. She has now developed multiorgan failure with worsening liver functions, kidney functions and pancytopenia requiring blood and platelet transfusions. Patient has declined significantly in the last 24 hours, repeat urgent scans of CT head as well as abdomen/pelvis did not show any acute pathology or changes from her prior scans. Unfortunately, a diagnosis has not been made in spite of extensive testing and biopsies at [facility] thus far. I discussed with patient's and daughter in the presence of hospitalist, Dr. Ramires above findings with the family. We discussed transfer to tertiary care center for further evaluation if the family desired. We discussed possibility of biopsy of skull lesion as well as possible radiation therapy to the skull lesion. However, given the multiorgan failure and pancytopenia this might not help her or prolong life. We also discussed comfort/hospice care. They will think about it and make a decision soon. Overall prognosis is poor. - Time Spent With Patient Time Spent with Patient (in minutes): 20
[2023-09-26] MEDS: Lactulose 20 GM/30 ML SOLUTION PO ×2 (15:56→22:04)
[2023-09-26] MEDS: dexAMETHasone sod phosphate 10 MG/ML VIAL IVPUSH (15:57)
--- NOTE | 2023-09-26 15:58 | MHC.CLN ---
NUTRITION PATIENT WITH NEW DX CANCER WITH METS TO BONE. DIET=PUREE. 1:1 ASSIST. ENSURE TID PROVIDES ADDITIONAL 1050 KCALS, 60 G PROTEIN. SKIN WITH REDNESS TO COCCYX. INTAKE MOST MEALS APPROX 25%. FOLLOW FOR PO INTAKE AND PLAN OF CARE. SEE CLINICAL NUTRITION ASSESSMENT 09/26/23.
[2023-09-26 16:34] LABS: Glucose, Whole Blood 84 mg/dL (60-115)
--- NOTE | 2023-09-26 16:56 | P.PNIM_ITS ---
Subjective Subjective Date of Service: 09/26/23 Interval History: BP this afternoon 77/38, back up to 129/73 after IV fluids and dexamethasone Worsening lethargy. Facial droop now apparent on right. UOP going down and SCr going up Review of Systems Review of Systems: Yes Unobtainable due to mental status Physical Exam 2 Vital Signs: Vital Signs: Last Vital Signs Temp 97.3 F 09/26/23 14:15 Pulse 116 H 09/26/23 15:43 Resp 20 09/26/23 15:43 BP 129/73 09/26/23 15:43 Pulse Ox 94 09/26/23 15:43 O2 Del Method Room Air 09/26/23 15:43 BMI result Body Mass Index 23.8 Gen: in no acute distress, weak/pale HEENT: sclera icteric, moist mucus membranes Neck: supple Lungs: clear to auscultation bilaterally Heart: tachycardic, no murmurs Abd: soft, non-tender, non-distended Ext: no edema Skin: jaundiced Neuro: alert, minimally verbal, R facial droop apparent Psych: restricted affect Objective Data Active Medications Acetaminophen (Acetaminophen 325 Mg Tablet) 650 mg PO Q6H PRN PRN Reason: Pain, Mild (Pain Scale 1-3), fever or headache Last Admin: 09/23/23 05:39 Dose: 650 mg Documented By: RASHAAD Dexamethasone Sodium Phosphate (Dexamethasone Sod Phosphate 4 Mg/Ml Vial) 4 mg IVPUSH Q6H [facility] Last Admin: 09/26/23 15:45 Dose: Not Given Documented By: CLARA Non-Admin Reason: Giving 10 mg IV x 1 dose now per MD order Glucose (Glucose Gel 15 Gm Gel..Gram.) 15 gm PO Q15M PRN; Protocol PRN Reason: per Hypoglycemia Standing Ord. Hydromorphone HCl (Hydromorphone Hcl 0.5 Mg/0.5 Ml Syringe) 0.25 mg IVPUSH Q2H PRN; Protocol PRN Reason: Pain, Severe (Pain Scale 7-10) Dextrose (D10) 250 mls @ 750 mls/hr IV Q15M PRN; Protocol PRN Reason: per Hypoglycemia Standing Ord. Sodium Chloride (Ns) 1,000 mls @ 125 mls/hr IVCONT .Q8H [facility] Last Admin: 09/26/23 14:10 Dose: 125 mls/hr Documented By: CLARA Levofloxacin (Levaquin) 750 mg in 150 mls @ 100 mls/hr IV Q48H [facility] Last Infusion: 09/26/23 10:20 Dose: Infused Documented By: CLARA Insulin Human Lispro (Insulin Lispro 100 Unit/Ml 3 Ml Vial) 0 unit SUBCUT QIDACHS [facility]; Protocol Last Admin: 09/26/23 11:14 Dose: Not Given Documented By: CLARA Non-Admin Reason: poc= 123 Lactulose (Lactulose 20 Gm/30 Ml Solution) 20 gm PO TID [facility] Lidocaine (Lidocaine 4 % Patch Adh..Patch) 1 patch TRANSDERMA DAILY [facility]; Protocol Last Admin: 09/26/23 08:34 Dose: 1 patch Documented By: CLARA Metoprolol Tartrate (Metoprolol Tartrate 5 Mg/5 Ml Vial) 2.5 mg IVPUSH Q6H [facility]; Protocol Multivitamins/Vitamin C (Multivitamin Tablet) 1 tab PO DAILY [facility] Last Admin: 09/26/23 08:34 Dose: 1 tab Documented By: CLARA Ondansetron HCl (Ondansetron Hcl 4 Mg/2 Ml Vial) 4 mg IVPUSH Q8H PRN PRN Reason: Nausea and Vomiting Last Admin: 09/26/23 11:54 Dose: 4 mg Documented By: CLARA Oxycodone HCl (Oxycodone Hcl Immed Release 5 Mg Tablet) 5 mg PO Q4H PRN PRN Reason: Pain, Moderate(Pain Scale 4-6) Last Admin: 09/26/23 12:20 Dose: 5 mg Documented By: CLARA Pantoprazole Sodium (Pantoprazole Sodium 40 Mg/10 Ml Vial) 40 mg IVPUSH DAILY@0630 [facility] Sodium Chloride (0.9 % Sodium Chloride Flush 3 Ml Syringe) 3 ml IVFLUSH QSHIFT [facility] Last Admin: 09/26/23 15:57 Dose: 3 ml Documented By: CLARA Vitamin D (Cholecalciferol (Vitamin D3) 25 Mcg Tablet) 25 mcg PO DAILY [facility] Last Admin: 09/26/23 08:33 Dose: 25 mcg Documented By: CLAAR Labs 09/26/23 06:12 09/26/23 06:12 Labs: Laboratory Results - last 24 hr 09/23/23 09/25/23 09/25/23 13:30 17:12 19:37 MCV MCH MCHC RDW Plt Count MPV Absolute Nucleated RBC Nucleated RBC % (auto) Neutrophils % (Manual) Band Neutrophils % Lymphocytes % (Manual) Atypical Lymphs % (Man) Metamyelocytes % Myelocytes % Abs Neuts (Manual) Lymphocytes # (Manual) Atyp Lymphs # (Manual) Metamyelocytes # Nucleated RBCs Platelet Estimate Large Platelets Plt Morphology Comment RBC Morphology Polychromasia Hamilton Cells Smear Path Review Anion Gap Estim Creat Clear Calc Estimated GFR POC Glucose 126 H 113 Random Glucose Uric Acid Calcium Phosphorus Total Bilirubin Direct Bilirubin AST ALT Alkaline Phosphatase Ammonia Lactate Dehydrogenase C-Reactive Protein Total Protein Albumin Procalcitonin Leuk/Lym Interpretation See Note Blood Type Antibody Screen 09/26/23 09/26/23 09/26/23 06:12 08:21 10:37 MCV 83.4 MCH 28.2 MCHC 33.8 RDW 17.9 H Plt Count 18 L* MPV Not Reportable Absolute Nucleated RBC 0.100 H Nucleated RBC % (auto) 4.0 H Neutrophils % (Manual) 77 H Band Neutrophils % 6 H Lymphocytes % (Manual) 9 L Atypical Lymphs % (Man) 3 Metamyelocytes % 4 Myelocytes % 1 Abs Neuts (Manual) 2.1 Lymphocytes # (Manual) 0.2 L Atyp Lymphs # (Manual) 0.1 Metamyelocytes # 0.1 Nucleated RBCs 2 H Platelet Estimate DECREASED Large Platelets PRESENT Plt Morphology Comment NOTED RBC Morphology NOTED Polychromasia 1+ (0-2) Papa Cells 1+ (0-2) Smear Path Review SEE NOTE Anion Gap 21 H Estim Creat Clear Calc 33.2 Estimated GFR 36 POC Glucose 89 123 H Random Glucose 96 Uric Acid 10.6 H Calcium 9.1 D Phosphorus 5.0 H Total Bilirubin 8.7 H Direct Bilirubin 6.8 H AST 192 H ALT 124 H Alkaline Phosphatase 1048 H Ammonia Lactate Dehydrogenase 2123 H C-Reactive Protein 30.75 H Total Protein 5.5 L Albumin 2.4 L Procalcitonin 1.83 Leuk/Lym Interpretation Blood Type Antibody Screen 09/26/23 09/26/23 09/26/23 11:00 14:04 16:23 MCV MCH MCHC RDW Plt Count MPV Absolute Nucleated RBC Nucleated RBC % (auto) Neutrophils % (Manual) Band Neutrophils % Lymphocytes % (Manual) Atypical Lymphs % (Man) Metamyelocytes % Myelocytes % Abs Neuts (Manual) Lymphocytes # (Manual) Atyp Lymphs # (Manual) Metamyelocytes # Nucleated RBCs Platelet Estimate Large Platelets Plt Morphology Comment RBC Morphology Polychromasia Hamilton Cells Smear Path Review Cancelled Anion Gap Estim Creat Clear Calc Estimated GFR POC Glucose 84 Random Glucose Uric Acid Calcium Phosphorus Total Bilirubin Direct Bilirubin AST ALT Alkaline Phosphatase Ammonia 70 H Lactate Dehydrogenase C-Reactive Protein Total Protein Albumin Procalcitonin Leuk/Lym Interpretation Blood Type O Negative Antibody Screen NEGATIVE Impressions Abdomen Ultrasound 09/25/23 10:57 IMPRESSION: 1. Trace sludge within the gallbladder. Gallbladder wall is mildly thickened though may be due to under distention. No radha stones to suggest cholecystitis. 2. Trace free fluid. Abdomen/Pelvis CT 09/25/23 16:13 IMPRESSION: 1. Bilateral pyelonephritis. Small stone in the left UVJ. 2. Single air bubble at the dome of the urinary bladder, correlate with recent instrumentation or infection. 3. Gallbladder polyp versus chronic wall thickening in the fundus of the gallbladder. 4. 0.3 cm nodule in the right middle lobe and pleural thickening in the left lower lobe associated with calcifications of pleura. 5. Degenerative changes in lower lumbar spine. Fleischner guidelines were followed. Assessment and Plan (1) Cancer, metastatic to bone: Status: Acute (2) Facial paresthesia: Status: Acute (3) Drug induced liver disease: Status: Acute (4) Thrombocytopenia: Status: Acute (5) Abnormal LFTs: Status: Acute Plan d9 73yo F with remote history of L breast CA s/p lumpectomy/XRT/tamoxifen x5yr who was recently admitted to [facility] [place] 08/30-09/16/23, initially for chest pain but ruled out for coronary syndrome. She developed cholestastic jaundice and pancytopenia. Autoimmune workup negative. She was ultimately diagnosed with medication- induced liver injury by liver biopsy [attributed possibly to metformin]. She was discharged to rehab on a prolonged prednisone taper but returned the very next day with R-sided paresthesias and facial droop; workup revealed widespread bony metastasis with 1 extending intracrnially into the left temporal lobe with parynchemal edema. diffuse osseous metastases - MRI brain showed diffuse bony enhancement involving the osseous structure including calvarium, skull bone, maxillofacial bones and imaged cervical spinal column. [Case had been discussed with [facility] Tho GIANG regarding biopsy; he reviewed films and recommend outpatient follow-up with repeat CT in 1 week] - Bone scan showed features highly suspicious for near diffuse osseous metastasis involving skull vault, thoracic cage, upper extremities, both upper extremities, entire cervical, thoracic and lumbosacral spine and pelvis. - Repeat MRI with 3-D MPRAGE/GUSMAN postcontrast sequences showed widespread osseous metases with diffuse reactive dural thickening/enhancement, as well as enhancement of the L anterior temporal lobe 1.7cm in diameter representing direct intracranial invasion by tumor - On dexamethasone; increased to 4 mg q6h after 10mg IV load today - CA 27.29 pending though the breast CA was 25 yr ago. - Immunofixation panel 09/02/23 normal - Peripheral smear without abnormal cells to suggest leukemia - Had colonoscopy in 2022 with benign polyps - CT A/P with ?bilateral pyelonephritis, no suspicious masses - Per pathologist, bone marrow biopsy from 09/23/23 shows extensive bone marrow necrosis, loss of architecture, and no precursor hematopoietic cells. Cytogenetics pending. - LLE from bone marrow shows very small population of kappa light chain predominant B-cells, which is nonspecific - Extensive discussion with patient's HCPs [her Chris and her daughter Blanca] with oncologist Dr Vasquez. Ultimately prognosis is very poor. They affirmed her DNR/DNI status [MOLST filled out] but would like to pursue diagnostic and therapeutic treatment while recognizing that her disease is likely incurable. At their request will try [facility]. CA-associated pain - prn Dilaudid IV; d/c Oxycontin given worsening lethargy dysphagia - WIRE INSPECTOR consulted; NDD1 solids/thin liquids pancytopenia - Due to marrow replacement by tumor - Transfused 2u pRBCs 09/21 for Hb 7.3 and Hb now 11.7 - Transfused 1u plts 09/24 for plts 18; will give another 1u plts today for plts 18 cholestatic jaundice coagulopathy from liver disease ?hepatic encephalopathy - No apparent obstructing mass; will cancel GI consult. Likely due to tumor but unknown primary - Will give 1 dose IV vitamin K and recheck coags in AM. - Trial of lactulose - Was discharged on prednisone taper, currently on dexamethasone as above but in the end, I doubt DILI. DM2, A1c 6.9 - MTF had been discontinued due to DILI; correction-dose lispro for now HLD - Statin on hold due to prior question of DILI VTE ppx - SCDs, d/c'ed LMWH due to thrombocytopenia dispo - TBD. Will reach out to [facility] [place] [place] for transfer. In my clinical judgment, the patient requires continued inpatient hospitalization for the following reasons: pancytopenia, worsening mental status, may need inpatient radiation treatment Total time managing care of this patient today: 80 minutes. Quality Stroke Does the patient have a stroke diagnosis?: No VTE Prior VTE?: No VTE Risk Level:: Medical - moderate - high VTE Device Contraindication: Treatment Not Indicated VTE Drug Contraindication: N/A - Med Ordered
[2023-09-26 17:56] LABS: Appearance Urine Turbid; Color Urine Dark Yellow; Glucose Urine UA Negative (Negative); Leukocyte Esterase Urine Moderate (2+) (Negative); Nitrite Urine Positive (Negative); Specific Gravity - Urine >= 1.030 (1.005-1.025); UMIC TRIGGER UA YES; Urine Blood Small (1+) (Negative); Urine Ketones Negative (Negative); Urine Protein 30 (1+) mg/dL (Neg-Trace)
[2023-09-26 18:10] LABS: Bacteria Urine 4+ (None Seen); Hyaline Casts Urine >20 /LPF (0-2); WBC Urine 21-50 /HPF (0-5)
[2023-09-26] MEDS: Phytonadione (Vit K1) 5 MG in 0.9 % Sodium Chloride 50 ML 50.5 MG IV (18:12)
--- NOTE | 2023-09-26 18:19 | PM.DS ---
DS: Providers Provider Date of Service: 09/26/23 Date of admission: 09/18/23 14:05 Date of discharge: 09/26/23 Primary care physician: Li Whitehead MD Consults: 09/17/23 13:51 Consult to Neurology Routine Consulting Provider: [facility] Reason for consultation: Parasthesias Has provider been notified: No 09/18/23 08:22 Consult to Hematology / Oncology Routine Consulting Provider: Richelle Vasquez Reason for consultation: osseous metastatic disease Has provider been notified: No 09/25/23 15:18 Consult to Gastroenterology Routine Consulting Provider: Cesar Gould Reason for consultation: cholestatic jaundice/?malignant obstruction. 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 Please see past admission notes for details. Patient was discharged to snf facility last evening; patient states she rarely slept in this a.m. developed a severe headache. Shortly after the onset of the headache she developed numbness and tingling around her nose that progressed to her cheek and down to her chin. Staff noted a possible right facial droop. She was transferred to [facility] for evaluation. Evaluation in the ER including CTA of the head and CTA of head neck failed to demonstrate any acute pathology that would be the causative factor for her presenting complaints Ms Looney is a 73yo F with remote history of L breast CA s/p lumpectomy/XRT/tamoxifen x5yr who was [place] [facility] [place] initially for chest pain but ruled out for coronary syndrome. She developed cholestastic jaundice and pancytopenia. Autoimmune workup negative. She was ultimately diagnosed with medication-induced liver injury by liver biopsy [attributed possibly to metformin]. She was discharged to rehab on a prolonged prednisone taper but returned the very next day, 09/17/23, with R-sided paresthesias and facial droop; workup revealed widespread bony metastasis with one extending intracrnially into the left temporal lobe with parenchymal edema. Hospital course by problem: diffuse osseous metastases - MRI brain showed diffuse bony enhancement involving the osseous structure including calvarium, skull bone, maxillofacial bones and imaged cervical spinal column. [Case had been initially discussed with [facility] Tho GIANG regarding biopsy; he reviewed films and recommend outpatient follow-up with repeat CT in 1 week] - Bone scan showed features highly suspicious for near diffuse osseous metastasis involving skull vault, thoracic cage, upper extremities, both upper extremities, entire cervical, thoracic and lumbosacral spine and pelvis. - Repeat MRI with 3-D MPRAGE/GUSMAN postcontrast sequences showed widespread osseous metases with diffuse reactive dural thickening/enhancement, as well as enhancement of the L anterior temporal lobe 1.7cm in diameter representing direct intracranial invasion by tumor - On dexamethasone; increased to 4 mg q6h after 10mg IV load today - CA 27.29 pending though the breast CA was 25 yr ago. - Immunofixation panel 09/02/23 normal - Peripheral smear without abnormal cells to suggest leukemia - Had colonoscopy in 2022 with benign polyps - CT A/P with ?bilateral pyelonephritis, no suspicious masses - None of the bony lesions lit up on CT, so a target biopsy of a metastatic lesion could not be done. Per discussion between IR and Oncology, a bone marrow biopsy was done on 09/23/23. - Discussed biopsy with pathologist; bone marrow necrosis, loss of architecture, and no precursor hematopoietic cells. Cytogenetics pending at this time. - LLE from bone marrow shows very small population of kappa light chain predominant B-cells, which is nonspecific - Extensive discussion with patient's HCPs [her Chris and her daughter Blanca] with oncologist Dr Vasquez. Ultimately prognosis is very poor. They affirmed her DNR/DNI status [MOLST filled out] but would like to pursue diagnostic and therapeutic treatment while recognizing that her disease is likely incurable. At their request I reached out to Neurosurgery and Oncology at [facility]. The plan is for CT head with Stealth Protocol to plan for tissue diagnosis, and to consider radiation treatment for the metastasis invading the temporal lobe. [place], likely tumor lysis syndrome - This developed on 09/24-09/25. Baseline Cr is around 0.6-0.8. I suspect tumor lysis syndrome given extensive tumor burden with necrosis. She was given rasburicase 0.2 mg/kg IV on 09/26/23 at 19:30-20:00. Please recheck uric acid level as per protocol: 4 hours after rasburicase administration [thus, at midnight], then every 6 to 8 hours until tumor lysis syndrome resolution; use prechilled tubes containing heparin anticoagulant and?immediately?immerse and maintain sample in an ice water bath; analyze sample within 4 hours of collection. pancytopenia - Due to marrow replacement by aggressive metastases. - Transfused 2u pRBCs 09/21 for Hb 7.3 and Hb now 11.7. - Transfused 1u plts 09/24 for plts 18; gave another 1u plts today for plts 18. cholestatic jaundice coagulopathy from liver disease ?hepatic encephalopathy - No apparent obstructing mass; due to tumor infiltration? Likely due to tumor but unknown primary. - Gave 1 dose IV vitamin K; recheck coagulation studies in AM. - FBG >700; coagulopathy more consistent with liver disease than with DIC - Trial of lactulose for hyperammonemia - Was discharged on prednisone taper, currently on dexamethasone as above, but in the end, I doubt drug-induced liver injury; I suspect tumor infiltration. CA-associated pain - On prn Dilaudid IV; d/c'ed OxyContin [had been on 20 mg bid] given worsening lethargy and renal failure question of bilateral pyelonephritis - Could be tumor infiltration but will send UA/UM/UCx + BCx and started renally-dosed levofloxacin 09/26/23. dysphagia - SLEEVE TURNER consulted; NDD1 solids/thin liquids DM2, A1c 6.9 - MTF had been discontinued due to DILI; correction-dose lispro for now Time Attestation Discharge Coordination Time (in mins): 70 Quality: Safe Use of Opioids Does Pt have an Active Cancer Diagnosis on the Problem List?: Yes Opioid Measure Date for CMS Report: 08/27/23 Opioid Measure Time for CMS Report: 19:09 Quality: Stroke Does the patient have a stroke diagnosis?: No Physical Exam Vital Signs: Vital Signs: Last Vital Signs Temp 97.3 F 09/26/23 14:15 Pulse 116 H 09/26/23 15:43 Resp 20 09/26/23 15:43 BP 129/73 09/26/23 15:43 Pulse Ox 94 09/26/23 15:43 O2 Del Method Room Air 09/26/23 15:43 BMI result Body Mass Index 23.8 Gen: in no acute distress, weak/pale HEENT: sclera icteric, moist mucus membranes Neck: supple Lungs: clear to auscultation bilaterally Heart: tachycardic, no murmurs Abd: soft, non-tender, non-distended Ext: no edema Skin: jaundiced Neuro: alert, minimally verbal, R facial droop apparent Psych: restricted affect DS: Data Data Completed and Pending Completed studies during hospitalization [Text1]: Laboratory Results WBC 2.5 X10*3/uL (4.8-10.8) L 09/26/23 06:12 RBC 4.15 X10*6/uL (4.20-5.50) L 09/26/23 06:12 Hgb 11.7 g/dl (12.0-16.0) L 09/26/23 06:12 Hct 34.6 % (37.0-47.0) L 09/26/23 06:12 MCV 83.4 fL (80.0-98.0) 09/26/23 06:12 MCH 28.2 pg (27.0-33.0) 09/26/23 06:12 MCHC 33.8 g/dl (31.0-35.0) 09/26/23 06:12 RDW 17.9 % (11.0-16.0) H 09/26/23 06:12 Plt Count 18 X10*3/uL (160-400) L* 09/26/23 06:12 MPV Not Reportable 09/26/23 06:12 Immature Gran % (Auto) Cancelled 09/18/23 05:12 Neut % (Auto) Cancelled 09/18/23 05:12 Lymph % (Auto) Cancelled 09/18/23 05:12 [place] % (Auto) Cancelled 09/18/23 05:12 Eos % (Auto) Cancelled 09/18/23 05:12 Baso % (Auto) Cancelled 09/18/23 05:12 Lymph # (Auto) Cancelled 09/18/23 05:12 [place] # (Auto) Cancelled 09/18/23 05:12 Eos # (Auto) Cancelled 09/18/23 05:12 Baso # (Auto) Cancelled 09/18/23 05:12 Abs Immat Gran (auto) Cancelled 09/18/23 05:12 Absolute Neuts (auto) Cancelled 09/18/23 05:12 Absolute Nucleated RBC 0.100 X10*3/uL (0.0-0.012) H 09/26/23 06:12 Nucleated RBC % (auto) 4.0 /100WBC (0.0-0.2) H 09/26/23 06:12 Neutrophils % (Manual) 77 % (45-73) H 09/26/23 06:12 Band Neutrophils % 6 % (3-5) H 09/26/23 06:12 Lymphocytes % (Manual) 9 % (20-40) L 09/26/23 06:12 Atypical Lymphs % (Man) 3 % (0-6) 09/26/23 06:12 Monocytes % (Manual) 5 % (2-11) 09/25/23 06:45 Eosinophils % (Manual) 1 % (0-4) 09/25/23 06:45 Metamyelocytes % 4 % 09/26/23 06:12 Myelocytes % 1 % 09/26/23 06:12 Promyelocytes % 2 % 09/24/23 06:32 Abs Neuts (Manual) 2.1 X10*3/uL (2.0-8.3) 09/26/23 06:12 Lymphocytes # (Manual) 0.2 X10*3/uL (1.2-4.9) L 09/26/23 06:12 Atyp Lymphs # (Manual) 0.1 x10*3/uL 09/26/23 06:12 Monocytes # (Manual) 0.1 X10*3/uL (0.1-1.2) 09/25/23 06:45 Metamyelocytes # 0.1 X10*3/uL 09/26/23 06:12 Myelocytes # 0.1 X10*/uL 09/23/23 06:29 Nucleated RBCs 2 /100WBC (0-0) H 09/26/23 06:12 Toxic Granulation PRESENT 09/25/23 06:45 Dohle Bodies PRESENT 09/25/23 06:45 Platelet Estimate DECREASED (NORMAL) 09/26/23 06:12 Large Platelets PRESENT 09/26/23 06:12 Plt Morphology Comment NOTED 09/26/23 06:12 RBC Morphology NOTED 09/26/23 06:12 Polychromasia 1+ (0-2) /[facility] 09/26/23 06:12 Hypochromasia 1+ (5-14) /[facility] 09/23/23 06:29 Basophilic Stippling 1+ (0-2) /[facility] 09/17/23 06:10 Microcytosis 1+ (5-14) /[facility] 09/18/23 05:12 Spherocytes 1+ (0-2) /[facility] 09/17/23 06:10 Tear Drop Cells 1+ (0-2) /[facility] 09/17/23 06:10 Ovalocytes 1+ (5-14) /[facility] 09/17/23 06:10 Stomatocytes 1+ (5-14) /[facility] 09/17/23 06:10 [place] Cells 1+ (0-2) /[facility] 09/26/23 06:12 Acanthocytes (Spur) 1+ (0-2) /[facility] 09/17/23 06:10 Schistocytes 1+ (0-2) /[facility] 09/17/23 06:10 Smear Path Review Cancelled 09/26/23 11:00 PT 28.1 SEC (11.1-13.3) H D 09/25/23 14:02 Whole Blood PT 13.9 sec (11.1-13.5) H 09/16/23 05:46 INR 2.3 (0.9-1.1) H 09/25/23 14:02 Whole Blood INR 1.2 (0.9-1.1) H 09/16/23 05:46 APTT 29.1 SEC (26.0-36.8) 09/25/23 14:02 Fibrinogen > 700 MG/DL (259-690) H 09/25/23 14:02 D-Dimer High Sensitivty 3007 NG/ML 09/25/23 14:02 Sodium 136 mmol/L (135-145) 09/26/23 06:12 Potassium 5.3 mmol/L (3.3-5.1) H 09/26/23 06:12 Chloride 98 mmol/L (96-108) 09/26/23 06:12 Carbon Dioxide 22 mmol/L (22-29) 09/26/23 06:12 Anion Gap 21 (12-20) H 09/26/23 06:12 BUN 81 mg/dL (9-16) H 09/26/23 06:12 Creatinine 1.45 mg/dL (0.5-1.4) H 09/26/23 06:12 Estim Creat Clear Calc 33.2 09/26/23 06:12 Estimated GFR 36 09/26/23 06:12 POC Glucose 84 mg/dL (60-115) 09/26/23 16:23 Random Glucose 96 mg/dL (60-115) 09/26/23 06:12 Uric Acid 10.6 mg/dL (2.4-5.7) H 09/26/23 06:12 Calcium 9.1 mg/dL (8.4-10.2) D 09/26/23 06:12 Phosphorus 5.0 mg/dL (2.7-4.5) H 09/26/23 06:12 Total Bilirubin 8.7 mg/dL (0.0-1.0) H 09/26/23 06:12 Direct Bilirubin 6.8 mg/dL (0.0-0.5) H 09/26/23 06:12 AST 192 U/L (5-31) H 09/26/23 06:12 ALT 124 U/L (0-31) H 09/26/23 06:12 Alkaline Phosphatase 1048 U/L (39-117) H 09/26/23 06:12 Ammonia 70 umol/L (13-55) H 09/26/23 14:04 Lactate Dehydrogenase 2123 U/L (122-220) H 09/26/23 06:12 Troponin I High Sens 4.2 ng/L (<3.5-17.0) D 09/17/23 06:10 C-Reactive Protein 30.75 mg/dL (< or = 0.50) H 09/26/23 06:12 B-Natriuretic Peptide 94 pg/mL (<100) 09/17/23 06:10 Total Protein 5.5 g/dL (6.5-8.0) L 09/26/23 06:12 Albumin 2.4 g/dL (3.5-5.0) L 09/26/23 06:12 Lipase 33 U/L (8-78) 09/17/23 06:10 Procalcitonin 1.83 ng/mL 09/26/23 06:12 Urine Color Dark Yellow 09/26/23 17:40 Urine Appearance Turbid 09/26/23 17:40 Urine pH 5.0 (5.0-9.0) 09/26/23 17:40 Ur Specific Ivel >= 1.030 (1.005-1.025) H 09/26/23 17:40 Urine Protein 30 (1+) mg/dL (Neg-Trace) H 09/26/23 17:40 Urine Glucose (UA) Negative mg/dL (Negative) 09/26/23 17:40 Urine Ketones Negative mg/dL (Negative) 09/26/23 17:40 Urine Blood Small (1+) (Negative) H 09/26/23 17:40 Urine Nitrite Positive (Negative) H 09/26/23 17:40 Ur Leukocyte Esterase Moderate (2+) (Negative) H 09/26/23 17:40 Urine RBC 3-5 /HPF (0-2) H 09/26/23 17:40 Urine WBC 21-50 /HPF (0-5) H 09/26/23 17:40 Ur Squamous Epith Cells 3-5 /HPF (0-2) 09/26/23 17:40 Urine Bacteria 4+ (None Seen) 09/26/23 17:40 Hyaline Casts >20 /LPF (0-2) 09/26/23 17:40 Urine Yeast Present 09/26/23 17:40 Leuk/Lym Interpretation See Note 09/23/23 13:30 COVID-19 (LAST) Negative (Negative) 09/17/23 06:10 COVID-19 Clin Com See Note 09/17/23 06:10 Blood Type O Negative 09/26/23 11:00 Antibody Screen NEGATIVE 09/26/23 11:00 Crossmatch See Detail 09/22/23 13:[address] 09/17/23 05:51 IMPRESSION: No acute intracranial pathology. Chest X-Ray 09/17/23 06:38 IMPRESSION: No acute finding. Head/Neck CTA 09/17/23 07:36 IMPRESSION: 1. Partially calcified plaque at both carotid bulbs, with less than 50% diameter reduction stenosis of the proximal ICAs by NASCET criteria. 2. Short-segment moderate, nonflow-limiting stenosis of the supraclinoid left internal carotid artery. No intracranial arterial occlusion or other significant stenosis is identified. 3. Minimal chronic ischemic microangiopathy in the subcortical white matter of both frontal lobes. No acute territorial infarct. No pathologic intracranial enhancement. 4. Nonspecific subpleural opacity in the anterior left upper lobe, which could be inflammatory or post inflammatory in nature or less likely neoplastic. Recommend follow-up CT of the chest with contrast. 5. Multilevel cervical spondylosis and significant spinal canal stenosis as discussed above. Cannot exclude cord impingement at these levels. Consider MRI of the cervical spine for further assessment if clinically warranted. The [facility] staff will call to confirm receipt of this report with acknowledgement of the findings and any recommendations. Brain MRI 09/17/23 15:45 IMPRESSION: There are multiple anatomic findings that raise the concern for widespread osseous metastatic disease. There is parenchymal edema located within the left anterior temporal lobe that may represent intracranial invasion of a metastasis involving the left greater sphenoid wing. A dedicated postcontrast MRI of the brain can be obtained for better anatomic characterization of this finding. Otherwise no intracranial mass effect or hydrocephalus. No evidence of acute territorial infarct or hemorrhage. This critical result was discussed with Mayank Rockwell at 4:16 PM on 09/17/2023 and it was ascertained that the content and urgency of the report was understood at the time of direct communication. Brain MRI 09/17/23 18:49 FINDINGS/IMPRESSION: Diffuse enhancement involving the osseous structures, including the calvarium, skull base, maxillofacial bones, and imaged cervical spinal column again concerning for widespread osseous metastatic disease. Thin reactive pachymeningeal enhancement along the bilateral cerebral convexities. 1.5 x 1.3 cm nodular enhancement within the anterior aspect of the left middle cranial fossa appears to be both intra and extra-axial with involvement of the left temporal pole as evidenced by lack of clearly delineated CSF plane on prior MRI. This is contiguous with osseous metastatic disease eroding the inferior aspect of the left sphenoid wing and a portion of the the posterolateral wall of the left orbit, better illustrated on prior CT. There is minimal extraosseous disease noted within the posterolateral left extraconal orbit abutting the posterior aspect of the left lateral rectus muscle (image 11, series 3) and possible extraosseous extension into the left temporalis fossa involving the deep fibers of the left temporalis muscle. There may also be minimal infiltration along the roof of the left pterygomaxillary fissure. Pulsation artifact versus metastases within the left greater than right occipital lobes (images 11-13, series 3) and apparent enhancement versus artifact within the posterior fossa would be better evaluated on 3-D MPRAGE/GUSMAN postcontrast sequences. Please refer to separate brain MRI for discussion of additional findings. Brain MRI 09/19/23 10:50 IMPRESSION: There is diffuse dural thickening and enhancement most likely representing reactive changes in the setting of widespread osseous metastatic disease. There is also a focus of parenchymal enhancement involving the left anterior temporal lobe measuring approximately 1.7 cm in maximal transaxial dimension most likely representing direct intracranial extension of tumor. Otherwise no abnormal parenchymal enhancement visualized elsewhere within the intracranial compartment. No intracranial mass effect or hydrocephalus. Bone Scan Nuclear Medicine 09/19/23 12:20 IMPRESSION: Abnormal study showing features highly suspicious for near diffuse osseous metastasis. Abdomen Ultrasound 09/25/23 10:57 IMPRESSION: 1. Trace sludge within the gallbladder. Gallbladder wall is mildly thickened though may be due to under distention. No radha stones to suggest cholecystitis. 2. Trace free fluid. Abdomen/Pelvis CT 09/25/23 16:13 IMPRESSION: 1. Bilateral pyelonephritis. Small stone in the left UVJ. 2. Single air bubble at the dome of the urinary bladder, correlate with recent instrumentation or infection. 3. Gallbladder polyp versus chronic wall thickening in the fundus of the gallbladder. 4. 0.3 cm nodule in the right middle lobe and pleural thickening in the left lower lobe associated with calcifications of pleura. 5. Degenerative changes in lower lumbar spine. Fleischner guidelines were followed. Head CT 09/25/23 16:13 IMPRESSION: 1. No evidence of acute intracranial hemorrhage or edematous territorial infarction Pending studies at discharge: / Bone marrow chromosome analysis/cytogenetics 09/25 Blood cultures / Urine culture Discharge Plan Discharge Anticipated Discharge Date/Time: 09/26/23 20:52 Patient Disposition: Xfer Acute Care Hospital Discharge Diagnosis: bone marrow necrosis diffuse osseous metastases with intracranial extension pancytopenia cholestatic jaundice acute kidney injury pyelonephritis Referrals: Li Ray MD [Primary Care Provider] - 1 Week Discharge Medications: New metoprolol tartrate 5 mg/5 mL Solution 2.5 mg IVPUSH Q6H Qty: 1 0RF Protocol: Hold for SBP/HR < HOLD for SBP < : 90 HOLD for HR < : 60 levofloxacin in D5W 750 mg/150 mL Piggyback 750 mg IV Q48H Qty: 1 0RF hydromorphone 0.5 mg/0.5 mL Syringe 0.25 mg IVPUSH Q2H PRN (Reason: Pain, Severe (Pain Scale 7-10)) Qty: 1 0RF Protocol: Hold for RR < HOLD and contact provider for RR < (bpm): 12 Rx Instructions: Partial Fill upon patient request. pantoprazole [Protonix] 40 mg Recon Soln 40 mg IVPUSH DAILY@0630 Qty: 1 0RF dexamethasone sodium phosphate 4 mg/mL Solution 4 mg IVPUSH Q6H Qty: 1 0RF insulin lispro [Admelog U-100 Insulin lispro] 100 unit/mL Solution See Protocol subcut QIDACHS Qty: 1 0RF Protocol: Insulin Correction Scale Less than or equal to 110 ---- Give (units): 0 111 to 150 Give (units): 0 151 to 200 Give (units): 2 201 to 250 Give (units): 4 251 to 300 Give (units): 6 301 to 350 Give (units): 8 Greater than 350 Give (units): 10 Call MD if Blood Glucose > : 350 ondansetron HCl (PF) 4 mg/2 mL Solution 4 mg IVPUSH Q8H PRN (Reason: Nausea And Vomiting) Qty: 1 0RF lactulose 20 gram/30 mL Solution 20 g PO TID Qty: 1 0RF Continued (DME) blood-glucose meter [FreeStyle Lite Meter] Kit See Rx Instructions .Route Qty: 1 0RF Rx Instructions: As directed (DME) FreeStyle Lite Strips Strip See Rx Instructions .Route Qty: 100 3RF Rx Instructions: Use 1 test strip once a day (DME) lancets [FreeStyle Lancets] 28 gauge misc See Rx Instructions .Route Qty: 100 3RF Rx Instructions: Use 1 lancet once a day Discontinued multivitamin Tablet 1 tab PO DAILY cholecalciferol (vitamin D3) [Vitamin D3] 25 mcg (1,000 unit) Tablet 25 mcg PO DAILY aspirin [Ecotrin Low Strength] 81 mg tablet,delayed release (DR/EC) 81 mg PO DAILY Qty: 30 0RF prednisone 20 mg Tablet 40 mg PO DAILY omeprazole 20 mg Capsule,Delayed Release(Dr/Ec) 20 mg PO DAILY@0630 metoprolol succinate 50 mg tablet extended release 24 hr 50 mg PO DAILY Discharge Orders: Discharge Order (Routine); Ordered 09/26/23 Ordered By: Zach Ramires Diet: puree solids, thin liquid Activity on Discharge: As tolerated Stand Alone Forms: Patient Portal Discharge page Print Language: Dominican Other Ambulatory Orders: NM bone scan whole body (Routine) Timeframe: [id number] Facility: [facility] - Location: Nuclear Medicine Ordered By: Batsheva Johnson Care Plan Goals: diagnosis and treatment of bony metastases Health Concerns: bone marrow necrosis diffuse osseous metastases with intracranial extension pancytopenia cholestatic jaundice acute kidney injury pyelonephritis Plan of Treatment: transfer to [facility] for Oncology and Neurosurgery consultations continue dexamethasone continue levofloxacin Assessment: See Discharge Summary.
[2023-09-26 19:18] LABS: Anion Gap 28 (12-20); Blood Urea Nitrogen 92 mg/dL (9-16); Calcium 8.8 mg/dL (8.4-10.2); Carbon Dioxide 14 mmol/L (22-29); Chloride 100 mmol/L (96-108); Creatinine Clr Calc Pharmacy 23.6; Estimated Glomerular Filt Rate 24; Glucose Random 82 mg/dL (60-115); Phosphorus 6.6 mg/dL (2.7-4.5); Potassium 6.4 mmol/L (3.3-5.1); Sodium 136 mmol/L (135-145); Uric Acid 11.7 mg/dL (2.4-5.7)
[2023-09-26] MEDS: SODIUM CHLORIDE 0.9% IV (19:23)
[2023-09-26] MEDS: RASBURICASE IV (19:23)
--- NOTE | 2023-09-26 19:26 | PM.EVENT ---
Event Note Date of Service: 09/26/23 Event Note: Nurse reported potassium of 6.4. Will order temporizing measures and Lokelma. Time Spent With Patient Time: Total time managing care of this patient today ____ minutes.
[2023-09-26] MEDS: Dextrose 10 % 250 ML 750 ML IV (19:59)
[2023-09-26] MEDS: Insulin Regular, Human 100 UNIT/ML 10 ML VIAL IVPUSH (20:10)
[2023-09-26 20:12] LABS: Glucose, Whole Blood 75 mg/dL (60-115)
[2023-09-26] MEDS: Sodium Zirconium Cyclosilicate 10 GM POWD.PACK PO (20:23)
[2023-09-26 20:37] LABS: Glucose, Whole Blood 201 mg/dL (60-115)
[2023-09-26] MEDS: Insulin Lispro 100 UNIT/ML 3 ML VIAL SUBCUT (20:37)
[2023-09-26] MEDS: Calcium Gluconate/NaCl,Iso-Osm 2 GM/100 ML PLAST..BAG IV (22:04)
[2023-09-30 15:18] LABS: CA 27.29 60 U/mL (<38)
== END 2023-09-26 23:00 | disposition short-term general hospital (02) | DRG 542 ==
LOC: HO.ED 06:59 → HO.EDOVER 09:02 → HO.IMC 11:39
PROVIDERS: Hospitalist; Admitting Provider Hospitalist; Emergency Provider Emergency Medicine; PCP Internal Medicine; Visit Provider Family Medicine
DX: C79.51 Secondary malignant neoplasm of bone (principal); E88.3 Tumor lysis syndrome; D61.818 Other pancytopenia; D68.4 Acquired coagulation factor deficiency; N12 Tubulo-interstitial nephritis, not specified as acute or chronic; N17.9 Acute kidney failure, unspecified; R13.10 Dysphagia, unspecified; E11.9 Type 2 diabetes mellitus without complications; R33.9 Retention of urine, unspecified; E78.5 Hyperlipidemia, unspecified; G89.3 Neoplasm related pain (acute) (chronic); Z85.3 Personal history of malignant neoplasm of breast; Z20.822 Contact with and (suspected) exposure to COVID-19; Z79.4 Long term (current) use of insulin; Z79.899 Other long term (current) drug therapy
CPT/HCPCS: 36415; 38221; 70450; 70496; 70498; 70551; 70552; 71045; 74177; 76705; 78306; 80048; 80053; 80076; 81001; 82140; 82248; 82947; 83615; 83690; 83880; 84100; 84145; 84484; 84550; 85007; 85027; 85379; 85384; 85610; 85730; 86140; 86300; 86850; 86900; 86901; 86923; 87040; 87086; 87635; 88184; 88185; 88237; 88264; 88305; 88311; 88312; 88313; 88341; 88342; 92526; 92610; 92950; 93005; 99152; 99285; A9503; A9585; C1758; J0613; J1100; J1170; J1650; J1885; J1956; J2270; J2405; J2783; J3430; J7120; J8540; P9016; P9073; Q9967

== ENCOUNTER → 2023-09-17 05:43 | Outpatient (BNV) | payer MEDICARE, SELFPAY | PROVIDERS: Admitting Provider Hospitalist; Emergency Provider Emergency Medicine; Visit Provider Internal Medicine Cardiovascular Disease | DX: R94.31 Abnormal electrocardiogram [ECG] [EKG] (principal) | CPT/HCPCS: 93010 ==

== ENCOUNTER → 2023-09-17 08:58 | Outpatient (BNV) | payer MEDICARE, SELFPAY | PROVIDERS: Admitting Provider Hospitalist; Emergency Provider Emergency Medicine; Visit Provider Psychiatry & Neurology Neurology | DX: R20.2 Paresthesia of skin (principal) | CPT/HCPCS: 99222 ==

== ENCOUNTER → 2023-09-17 08:58 | Outpatient (BNV) | payer MEDICARE, SELFPAY | PROVIDERS: Admitting Provider Hospitalist; Emergency Provider Emergency Medicine; Visit Provider Hospitalist | DX: C79.51 Secondary malignant neoplasm of bone (principal); R20.2 Paresthesia of skin; K71.9 Toxic liver disease, unspecified; D69.6 Thrombocytopenia, unspecified; R79.89 Other specified abnormal findings of blood chemistry | CPT/HCPCS: 99223; 99232; 99233; 99239; 99499 ==

== ENCOUNTER 2023-09-18 14:05 | Outpatient (BNV) | payer MEDICARE, SELFPAY | END 2023-09-23 13:10 | PROVIDERS: Admitting Provider Hospitalist; Emergency Provider Emergency Medicine; PCP Internal Medicine; Visit Provider Student in an Organized Health Care Education/Training Program | DX: D61.818 Other pancytopenia (principal) | CPT/HCPCS: 38222; 77012; 99152 ==

== ENCOUNTER 2023-09-18 14:05 | Outpatient (BNV) | payer MEDICARE, SELFPAY | END 2023-09-26 20:04 | PROVIDERS: Admitting Provider Hospitalist; Emergency Provider Emergency Medicine; PCP Internal Medicine; Visit Provider Internal Medicine | DX: R00.0 Tachycardia, unspecified (principal); R94.31 Abnormal electrocardiogram [ECG] [EKG] | CPT/HCPCS: 93010 ==

== ENCOUNTER → 2023-09-18 14:05 | Outpatient (BNV) | payer MEDICARE, SELFPAY | PROVIDERS: Admitting Provider Hospitalist; Emergency Provider Emergency Medicine; PCP Internal Medicine; Visit Provider Internal Medicine | DX: D61.818 Other pancytopenia (principal) | CPT/HCPCS: 99222; 99231; 99232 ==